=== PATIENT | male | born 1960 | race Two or more races ===

== ENCOUNTER 2023-01-17 07:39 | Observation (INO) | payer OTHER ==
--- NOTE | 2023-01-17 08:22 | ED ---
General Adult HPI - General Chief complaint: Abdominal Pain Stated complaint: constipation Time Seen by Provider: 01/17/23 07:48 Source: patient Mode of arrival: ambulatory Limitations: no limitations - History of Present Illness Initial comments: Dictation was produced using [employer] dictation software. please excuse any grammatical, word or spelling errors. Chief Complaint: 62-year-old male presents emergency Department with hematuria History of Present Illness: 62-year-old male for the last several days he's been suffering from penile pain and left groin pain. States that the groin pain is intermittent. Denies any CVA pain or left-sided flank pain. Denies any history of kidney stones. States that this morning he woke up to urinate when his urine was bright red. Patient states that if time he urinates there is penile pain. Denies any fever or constitutional symptoms. No history of abdominal surgery. The ROS documented in this emergency department record has been reviewed and confirmed by me. Those systems with pertinent positive or negative responses have been documented in the HPI. All other systems are other negative and/or noncontributory. - Related Data Allergies Allergy/AdvReac Type Severity Reaction Status Date / Time No Known Allergies Allergy Verified 01/17/23 07:48 Review of Systems ROS Statement: Those systems with pertinent positive or pertinent negative responses have been documented in the HPI. ROS Other: All systems not noted in ROS Statement are negative. Past Medical History Past Medical History: No Reported History History of Any Multi-Drug Resistant Organisms: None Reported Past Surgical History: No Surgical Hx Reported Past Psychological History: No Psychological Hx Reported Smoking Status: Current every day smoker Past Alcohol Use History: Occasional Past Drug Use History: None Reported General Exam - General Exam Comments Initial Comments: PHYSICAL EXAM: General Impression: Alert and oriented x3, not in acute distress HEENT: Normocephalic atraumatic, extra-ocular movements intact, pupils equal and reactive to light bilaterally, mucous membranes moist. Cardiovascular: Heart regular rate and rhythm Chest: Able to complete full sentences, no retractions, no tachypnea Abdomen: abdomen soft, non-tender, non-distended, no organomegaly Musculoskeletal: Pulses present and equal in all extremities, no peripheral edema Motor: no focal deficits noted Neurological: CN II-XII grossly intact, no focal motor or sensory deficits noted Skin: Intact with no visualized rashes Psych: Normal affect and mood Limitations: no limitations Course Vital Signs 01/17/23 07:49 Temperature 97.5 F L Pulse Rate 62 Respiratory 16 Rate Blood Pressure 159/80 O2 Sat by Pulse 99 Oximetry Medical Decision Making - Medical Decision Making Was pt. sent in by a medical professional or institution (, [facility], BROKERAGE MANAGER, urgent care, hospital, or fci...) When possible be specific @ -No Did you speak to anyone other than the patient for history (EMS, parent, family, police, friend...)? What history was obtained from this source @ -No Did you review nursing and triage notes (agree or disagree)? Why? @ -I reviewed and agree with nursing and triage notes Were old charts reviewed (outside hosp., previous admission, EMS record, old EKG, old radiological studies, urgent care reports/EKG's, fci records)? Report findings @ -No old charts were reviewed Differential Diagnosis (chest pain, altered mental status, abdominal pain women, abdominal pain men, vaginal bleeding, musculoskeletal, weakness, fever, dyspnea, syncope, headache, dizziness, GI bleed, back pain, seizure, CVA, palpatations, mental health)? @ -Differential Abdominal Pain Men: Appendicitis, cholecystitis, diverticulosis, ischemic bowel, pancreatitis, hepatitis, UTI, gastroenteritis, AAA, incarcerated hernia, bowel obstruction, constipation, inflammatory bowel, hepatitis, peptic ulcer disease, splenic infarction, perforated viscus, testicular torsion, this is not meant to be an all-inclusive list EKG interpreted by me (3pts min.). @ -None done X-rays interpreted by me (1pt min.). @ -None done CT interpreted by me (1pt min.). @ -CT of the abdomen and pelvis shows bladder wall thickening. U/S interpreted by me (1pt. min.). @ -None done What testing was considered but not performed or refused? (CT, X-rays, U/S, labs)? Why? @ -None What meds were considered but not given or refused? Why? @ -None Did you discuss the management of the patient with other professionals (professionals i.e. [facility] Menjivar, BROKERAGE MANAGER, lab, RT, psych nurse, social security assessor, wrapping machine helper, teacher, civil preparedness officer, home health care case manager)? Give summary @ -Case discussed including CT findings with on-call urologist, Dr. taylor who is agreeable for consultation Was smoking cessation discussed for >3mins.? @ -No Was critical care preformed (if so, how long)? @ -No Were there social determinants of health that impacted care today? How? (Homelessness, low income, unemployed, alcoholism, drug addiction, transportation, low edu. Level, literacy, decrease access to med. care, retirement, rehab)? @ -No Was there de-escalation of care discussed even if they declined (Discuss DNR or withdrawal of care, Hospice)? DNR status @ -No What co-morbidities impacted this encounter? (DM, HTN, Smoking, COPD, CAD, Cancer, CVA, ARF, Chemo, Hep., AIDS, mental health diagnosis, sleep apnea, morbid obesity)? @ -None Was patient admitted / discharged? Hospital course, mention meds given and route, prescriptions, significant lab abnormalities, going to OR and other pertinent info. @ -62-year-old male presents emergency department with penile pain, abdominal pain, groin pain and hematuria. Vital signs stable. Imaging studies obtained. CT shows findings concerning for bladder adenocarcinoma. There is mild obstructive uropathy affecting the left kidney. Ultrasound shows no left lower extremity DVT. Disposition options discussed with patient to group for admission and consultation to urology. Undiagnosed new problem with uncertain prognosis? @ -No Drug Therapy requiring intensive monitoring for toxicity (Heparin, Nitro, Insulin, Cardizem)? @ -No Were any procedures done? @ -No Diagnosis/symptom? Acute, or Chronic, or Acute on Chronic? Uncomplicated (without systemic symptoms) or Complicated (systemic symptoms)? @ -Imaging findings suspicious for new onset Bladder mass Side effects of treatment? @ -No Exacerbation, Progression, or Severe Exacerbation? @ -No Poses a threat to life or bodily function? How? (Chest pain, [place], [place], pneumonia, PE, COPD, DKA, ARF, appy, cholecystitis, CVA, Diverticulitis, Homicidal, Suicidal, threat to staff... and all critical care pts) @ -yes - Lab Data Result diagrams: 01/17/23 08:09 01/17/23 08:09 Lab Results 01/17/23 01/17/23 01/17/23 Range/Units 08:09 08:09 08:09 WBC 9.0 (3.8-10.6) k/uL RBC 4.37 (4.30-5.90) m/uL Hgb 11.9 L (13.0-17.5) gm/dL Hct 36.4 L (39.0-53.0) % MCV 83.3 (80.0-100.0) fL MCH 27.3 (25.0-35.0) pg MCHC 32.8 (31.0-37.0) g/dL RDW 13.4 (11.5-15.5) % Plt Count 227 (150-450) k/uL MPV 9.3 Neutrophils % 66 % Lymphocytes % 18 % Monocytes % 7 % Eosinophils % 6 % Basophils % 0 % Neutrophils # 6.0 (1.3-7.7) k/uL Lymphocytes # 1.6 (1.0-4.8) k/uL Monocytes # 0.6 (0-1.0) k/uL Eosinophils # 0.6 (0-0.7) k/uL Basophils # 0.0 (0-0.2) k/uL PT 9.6 (9.0-12.0) sec INR 0.9 (<1.2) APTT 25.2 (22.0-30.0) sec Sodium (137-145) mmol/L Potassium (3.5-5.1) mmol/L Chloride (98-107) mmol/L Carbon Dioxide (22-30) mmol/L Anion Gap mmol/L BUN (9-20) mg/dL Creatinine (0.66-1.25) mg/dL Est GFR (CKD-EPI)AfAm (>60 ml/min/1.73 sqM) Est GFR (CKD-EPI)NonAf (>60 ml/min/1.73 sqM) Glucose (74-99) mg/dL Calcium (8.4-10.2) mg/dL Total Bilirubin (0.2-1.3) mg/dL AST (17-59) U/L ALT (4-49) U/L Alkaline Phosphatase (38-126) U/L Total Protein (6.3-8.2) g/dL Albumin (3.5-5.0) g/dL Lipase (23-300) U/L Urine Color Brown Urine Appearance Cloudy (Clear) Urine RBC >182 H (0-5) /hpf Urine WBC 91 H (0-5) /hpf Urine WBC Clumps Moderate H (None) /hpf Urine Bacteria Many H (None) /hpf Urine Mucus Few H (None) /hpf 01/17/23 Range/Units 08:09 WBC (3.8-10.6) k/uL RBC (4.30-5.90) m/uL Hgb (13.0-17.5) gm/dL Hct (39.0-53.0) % MCV (80.0-100.0) fL MCH (25.0-35.0) pg MCHC (31.0-37.0) g/dL RDW (11.5-15.5) % Plt Count (150-450) k/uL MPV Neutrophils % % Lymphocytes % % Monocytes % % Eosinophils % % Basophils % % Neutrophils # (1.3-7.7) k/uL Lymphocytes # (1.0-4.8) k/uL Monocytes # (0-1.0) k/uL Eosinophils # (0-0.7) k/uL Basophils # (0-0.2) k/uL PT (9.0-12.0) sec INR (<1.2) APTT (22.0-30.0) sec Sodium 138 (137-145) mmol/L Potassium 4.5 (3.5-5.1) mmol/L Chloride 108 H (98-107) mmol/L Carbon Dioxide 20 L (22-30) mmol/L Anion Gap 10 mmol/L BUN 16 (9-20) mg/dL Creatinine 0.88 (0.66-1.25) mg/dL Est GFR (CKD-EPI)AfAm >90 (>60 ml/min/1.73 sqM) Est GFR (CKD-EPI)NonAf >90 (>60 ml/min/1.73 sqM) Glucose 88 (74-99) mg/dL Calcium 9.2 (8.4-10.2) mg/dL Total Bilirubin 1.0 (0.2-1.3) mg/dL AST 24 (17-59) U/L ALT 20 (4-49) U/L Alkaline Phosphatase 72 (38-126) U/L Total Protein 7.0 (6.3-8.2) g/dL Albumin 4.3 (3.5-5.0) g/dL Lipase 59 (23-300) U/L Urine Color Urine Appearance (Clear) Urine RBC (0-5) /hpf Urine WBC (0-5) /hpf Urine WBC Clumps (None) /hpf Urine Bacteria (None) /hpf Urine Mucus (None) /hpf Disposition Clinical Impression: Bladder mass Disposition: ADMITTED IP TO THIS [facility] Condition: Fair Decision Time: 09:30
[2023-01-17 08:24] LABS: Basophils % (A) 0 %; Eosinophils # (A) 0.6 k/uL (0-0.7); Eosinophils % (A) 6 %; HCT 36.4 % (39.0-53.0); HGB 11.9 gm/dL (13.0-17.5); Lymphocytes # (A) 1.6 k/uL (1.0-4.8); Lymphocytes % (A) 18 %; MCH 27.3 pg (25.0-35.0); MCHC 32.8 g/dL (31.0-37.0); MCV 83.3 fL (80.0-100.0); Mean Platelet Volume 9.3; Monocytes # (A) 0.6 k/uL (0-1.0); Monocytes % (A) 7 %; Neutrophils % (A) 66 %; Platelet Count 227 k/uL (150-450); RBC 4.37 m/uL (4.30-5.90); RDW 13.4 % (11.5-15.5)
[2023-01-17 08:34] LABS: INR 0.9 (<1.2); Partial Thromboplastin Time 25.2 sec (22.0-30.0); Prothrombin Time 9.6 sec (9.0-12.0)
[2023-01-17 08:38] LABS: Bacteria,Urine Many /hpf; Mucus,Urine Few /hpf; RBC,Urine >182 /hpf (0-5); WBC,Urine 91 /hpf (0-5)
[2023-01-17 08:44] LABS: ALT 20 U/L (4-49); AST 24 U/L (17-59); African American GFR (CKD) >90 (>60 ml/min/1.73 sqM); Albumin 4.3 g/dL (3.5-5.0); Alkaline Phosphatase 72 U/L (38-126); Anion Gap 10 mmol/L; Appearance,Urine Cloudy (Clear); Blood Urea Nitrogen 16 mg/dL (9-20); Calcium 9.2 mg/dL (8.4-10.2); Carbon Dioxide 20 mmol/L (22-30); Chloride 108 mmol/L (98-107); Glucose 88 mg/dL (74-99); Lipase 59 U/L (23-300); Non-African American GFR(CKD) >90 (>60 ml/min/1.73 sqM); Potassium 4.5 mmol/L (3.5-5.1); Sodium 138 mmol/L (137-145)
[2023-01-17 08:45] LABS: Color,Urine Brown
--- NOTE | 2023-01-17 08:56 | CT ---
EXAMINATION TYPE: CT abdomen pelvis wo con DATE OF EXAM: 01/17/2023 COMPARISON: None HISTORY: 62-year-old male Hematuria, groin pain CT DLP: 378.9 mGycm. Automated exposure control for dose reduction was used. TECHNIQUE: Contiguous axial scanning of the abdomen and pelvis without IV contrast. Coronal and sagit libby reconstructions performed. FINDINGS: LUNG BASES: Calcified granuloma right middle lobe. Band of scar/atelectasis posterior right base. LIVER/GB: No significant abnormality is appreciated. PANCREAS: No significant abnormality is seen. SPLEEN: No significant abnormality is seen. ADRENALS: No significant abnormality is seen. KIDNEYS: There is mild left-sided hydronephrosis. BOWEL: No dilated small bowel, free fluid, or free air. Mild scattered stool. No pericolic inflammato ry change. LYMPH NODES: Mildly enlarged 1.1 cm left external iliac chain node. Asymmetric fat stranding along th e left pelvic sidewall and left iliac chain down into the left femoral canal and anterior upper left thigh where a couple additional mildly enlarged nodes measure up to 2.2 cm, coronal image 38. OTHER: No significant abnormality is seen. PELVIS: There is crescentic abnormal irregular wall thickening along the left lateral half of the ignacio dder up to 1.7 cm thick. There is also encompasses the left ureteral orifice. Prostate gland normal s ize measuring 3.9 cm wide. BONES: Moderate to advanced degenerative disc disease mid to lower lumbar spine along with hypertroph ic facet arthropathy. IMPRESSION: 1. Abnormal crescentic irregular wall thickening along the left lateral half of the bladder up to 1. 7 cm thick. Recommend further urology evaluation to exclude underlying urothelial carcinoma. 2. This thickening encompasses the left ureteral orifice and there is mild left-sided obstructive ur opathy. 3. Fat stranding along the left pelvic sidewall extending down along the left iliac chain, left femo ral canal, and anterior upper left thigh. A few lymph nodes here measure up to 1.1 cm in the left ext ernal iliac chain and 2.2 cm left femoral chain. These may be reactive nodes. Neoplastic etiology not entirely excluded. 4. In addition, given the asymmetric soft tissue swelling, consider further assessment to exclude un derlying left lower extremity DVT.
[2023-01-17] MEDS ORDERED: NALOXONE 0.4 MG/ML 1 ML VIAL IV PRN (09:21)
--- NOTE | 2023-01-17 09:50 | US ---
EXAMINATION TYPE: US venous doppler duplex LE LT DATE OF EXAM: 01/17/2023 9:42 AM COMPARISON: NONE CLINICAL INDICATION: Male, 62 years old with history of abnormal CT; Abnormal CT. Patient does not ta ke blood thinners. No pain. SIDE PERFORMED: Left TECHNIQUE: The lower extremity deep venous system is examined utilizing real time linear array sonog davie with graded compression, doppler sonography and color-flow sonography. VESSELS IMAGED: Common Femoral Vein Deep Femoral Vein Greater Saphenous Vein * Femoral Vein Popliteal Vein Small Saphenous Vein * Proximal Calf Veins (* superficial vessels) Left Leg: No evidence of DVT. Duplicate mid femoral vein and duplicate distal popliteal vein noted. Complex area was seen adjacent to mid popliteal vessels. Complex area seen without color flow identif ied: 4.4 x 1.9 x 2.4 cm. Lymph node seen left groin: 2.1 x 2.4 x 0.8 cm. IMPRESSION: 1. No evidence for DVT. 2. Complex Bradford's cyst.
[2023-01-17] MEDS: SODIUM CHLORIDE 0.9% 1,000 ML IV SCH (12:58)
[2023-01-17] MEDS ORDERED: MELATONIN 3 MG TABLET PO PRN (14:18)
--- NOTE | 2023-01-17 14:21 | P.HPIM ---
History of Present Illness This is a pleasant 62 years old male with no significant past medical history. Presents because of blood in the urine x 2 days' duration. Patient states that is been complaining of from dysuria for several Weaks on the last 2 days there was blood in the urine. Also patient complaining of from mild left flank pain that comes and goes and is not bothering him much. He denies chest pain dyspnea. No headache dizziness weakness. No other new complaints. Smokes about 2 packs per week and he was counseled to quit and he agrees. He stated that he tried to quit about a week ago. He drinks alcohol occasionally. No illicit drugs. He does not follow up with PCP Vitals stable Hemoglobin 11.9. Rest of CBC, INR, BMP and liver enzymes are unremarkable. Lipase 59. Urinalysis suspicious for UTI and hematuria. Venous Doppler of the lower extremity CT of the abdomen and pelvis without contrast: Abnormal crescentic irregular wall thickening along the left lateral half of the bladder up to 1.7 cm thick. Mild left-sided obstructive uropathy lymphadenopathy. Patient was admitted with urology consult Review of Systems Review of systems CONSTITUTIONAL: No fever, no malaise, no fatigue. HEENT: No recent visual problems or hearing problems. Denied any sore throat. CARDIOVASCULAR: No orthopnea, PND, no palpitations, no syncope. PULMONARY: No shortness of breath, no cough, no hemoptysis. GASTROINTESTINAL: No diarrhea, no nausea, no vomiting, no abdominal pain. Normoactive bowel sounds. NEUROLOGICAL: No headaches, no weakness, no numbness. HEMATOLOGICAL: Denies any bleeding or petechiae. GENITOURINARY: Denies any burning micturition, frequency, or urgency. MUSCULOSKELETAL/RHEUMATOLOGICAL: Denies any joint pain, swelling, or any muscle pain. ENDOCRINE: Denies any polyuria or polydipsia. Past Medical History Past Medical History: No Reported History History of Any Multi-Drug Resistant Organisms: None Reported Past Surgical History: No Surgical Hx Reported Past Anesthesia/Blood Transfusion Reactions: No Reported Reaction Past Psychological History: No Psychological Hx Reported Smoking Status: Current every day smoker Past Alcohol Use History: Occasional Past Drug Use History: None Reported Medications and Allergies Home Medications Medication Instructions Recorded Confirmed Type No Known Home Medications 01/17/23 01/17/23 History Allergies Allergy/AdvReac Type Severity Reaction Status Date / Time No Known Allergies Allergy Verified 01/17/23 10:33 Physical Exam Vitals: Vital Signs Temp Pulse Pulse Resp BP BP Pulse Ox 01/17/23 11:11 97.6 F 56 L 16 167/80 97 01/17/23 07:49 97.5 F L 62 16 159/80 99 Intake and Output 01/16/23 01/17/23 01/17/23 22:59 06:59 14:59 Other: Voiding Method Toilet Weight 74.843 kg GENERAL: The patient is alert and oriented x3, not in any acute distress. Well developed, well nourished. HEENT: Pupils are round and equally reacting to light. EOMI. No scleral icterus. No conjunctival pallor. Normocephalic, atraumatic. No pharyngeal erythema. No thyromegaly. CARDIOVASCULAR: S1 and S2 present. No murmurs, rubs, or gallops. PULMONARY: Chest is clear to auscultation, no wheezing , no crackles. ABDOMEN: Soft, nontender, nondistended, normoactive bowel sounds. No palpable organomegaly. MUSCULOSKELETAL: No joint swelling or deformity. EXTREMITIES: No cyanosis, clubbing, or pedal edema. NEUROLOGICAL: Gross neurological examination did not reveal any focal deficits. SKIN: No rashes. no petechiae. Results CBC & Chem 7: 01/17/23 08:09 01/17/23 08:09 Labs: Abnormal Lab Results - Last 24 Hours (Table) 01/17/23 01/17/23 01/17/23 Range/Units 08:09 08:09 08:09 Hgb 11.9 L (13.0-17.5) gm/dL Hct 36.4 L (39.0-53.0) % Chloride 108 H (98-107) mmol/L Carbon Dioxide 20 L (22-30) mmol/L Urine RBC >182 H (0-5) /hpf Urine WBC 91 H (0-5) /hpf Urine WBC Clumps Moderate H (None) /hpf Urine Bacteria Many H (None) /hpf Urine Mucus Few H (None) /hpf Thrombosis Risk Factor Assmnt - Choose All That Apply Each Risk Factor Represents 2 Points: Age 61-74 years Thrombosis Risk Factor Assessment Total Risk Factor Score: 2 Thrombosis Risk Factor Assessment Level: Low Risk Assessment and Plan Assessment: Urinary bladder with irregular wall thickening suspicious for carcinoma, urothelial cancer Hematuria Normochromic, normocytic anemia Nicotine dependence Plan: Start empirically on Levaquin for possible infectious etiology. We'll send urin e culture urology consult Nicotine patch Labs and medication were reviewed.. Continue same treatment. Continue with symptomatic treatment. Resume home medication. Monitor labs and vitals. DVT and GI prophylaxis. Further recommendations as per clinical course of the patient DVT prophylaxis: no Subcutaneous heparin for hematuria GI Prophylaxis: Pepcid Prognosis is guarded
[2023-01-17] MEDS: NICOTINE 21MG/24HR PATCH TRANSDERM SCH (14:57)
[2023-01-17] MEDS: LEVOFLOXACIN 500 MG TAB PO SCH (14:57)
[2023-01-17] MEDS ORDERED: RX INFO: IV CONTRAST WAS GIVEN 1 EACH MISC MISCELLANE PRN (17:41)
--- NOTE | 2023-01-17 17:41 | P.GSCN ---
History of Present Illness Consult date: 01/17/23 Reason for Consult: Bladder mass, gross hematuria History of present illness: This is a 62-year-old male presented to the hospital with gross hematuria, dysuria and lower abdominal pain. Underwent a CT abdomen and pelvis which showed evidence of bladder wall thickening concerning for malignancy and evidence of lymphadenopathy. He indicated he has been having intermittent gross hematuria for the past year. At this time it was associated with dysuria and the abdominal pain. No known family history of malignancies. He is smoker. Denies any previous 3 of kidney stones or UTIs. His urinalysis is concerning for UTI him he is currently on Levaquin Review of Systems - Constitutional Denies fever, Denies weight loss - EENT Ears, nose, mouth and throat: Denies dysphagia - Cardiovascular Denies chest pain, Denies shortness of breath - Respiratory Denies cough, Denies 7 - Gastrointestinal Reports as per HPI - Genitourinary Reports dysuria, Reports hematuria - Integumentary Denies rash, Denies unusual bruising - Neurological Denies headaches, Denies syncope - Hematologic/Lymphatic Denies easy bleeding, Denies easy bruising Past Medical History Past Medical History: No Reported History History of Any Multi-Drug Resistant Organisms: None Reported Past Surgical History: No Surgical Hx Reported Past Anesthesia/Blood Transfusion Reactions: No Reported Reaction Past Psychological History: No Psychological Hx Reported Smoking Status: Current every day smoker Past Alcohol Use History: Occasional Past Drug Use History: None Reported Medications and Allergies Home Medications Medication Instructions Recorded Confirmed Type No Known Home Medications 01/17/23 01/17/23 History Allergies Allergy/AdvReac Type Severity Reaction Status Date / Time No Known Allergies Allergy Verified 01/17/23 10:33 Surgical - Exam Vital Signs Temp Pulse Resp BP Pulse Ox 97.5 F L 62 16 159/80 99 01/17/23 07:49 01/17/23 07:49 01/17/23 07:49 01/17/23 07:49 01/17/23 07:49 - General no distress, moderate pain - Eyes normal ocular movement, no pale - ENT normal nares, normal mucosa - Respiratory normal expansion, normal respiratory effort - Abdomen Abdomen: soft, non tender - Psychiatric oriented to time, oriented to person, oriented to place Results - Labs 01/17/23 08:09 01/17/23 08:09 Abnormal Lab Results - Last 24 Hours (Table) 01/17/23 01/17/23 01/17/23 Range/Units 08:09 08:09 08:09 Hgb 11.9 L (13.0-17.5) gm/dL Hct 36.4 L (39.0-53.0) % Chloride 108 H (98-107) mmol/L Carbon Dioxide 20 L (22-30) mmol/L Urine RBC >182 H (0-5) /hpf Urine WBC 91 H (0-5) /hpf Urine WBC Clumps Moderate H (None) /hpf Urine Bacteria Many H (None) /hpf Urine Mucus Few H (None) /hpf Diabetes panel 01/17/23 Range/Units 08:09 Sodium 138 (137-145) mmol/L Potassium 4.5 (3.5-5.1) mmol/L Chloride 108 H (98-107) mmol/L Carbon Dioxide 20 L (22-30) mmol/L BUN 16 (9-20) mg/dL Creatinine 0.88 (0.66-1.25) mg/dL Glucose 88 (74-99) mg/dL Calcium 9.2 (8.4-10.2) mg/dL AST 24 (17-59) U/L ALT 20 (4-49) U/L Alkaline Phosphatase 72 (38-126) U/L Total Protein 7.0 (6.3-8.2) g/dL Albumin 4.3 (3.5-5.0) g/dL Calcium panel 01/17/23 Range/Units 08:09 Calcium 9.2 (8.4-10.2) mg/dL Albumin 4.3 (3.5-5.0) g/dL Pituitary panel 01/17/23 Range/Units 08:09 Sodium 138 (137-145) mmol/L Potassium 4.5 (3.5-5.1) mmol/L Chloride 108 H (98-107) mmol/L Carbon Dioxide 20 L (22-30) mmol/L BUN 16 (9-20) mg/dL Creatinine 0.88 (0.66-1.25) mg/dL Glucose 88 (74-99) mg/dL Calcium 9.2 (8.4-10.2) mg/dL Adrenal panel 01/17/23 Range/Units 08:09 Sodium 138 (137-145) mmol/L Potassium 4.5 (3.5-5.1) mmol/L Chloride 108 H (98-107) mmol/L Carbon Dioxide 20 L (22-30) mmol/L BUN 16 (9-20) mg/dL Creatinine 0.88 (0.66-1.25) mg/dL Glucose 88 (74-99) mg/dL Calcium 9.2 (8.4-10.2) mg/dL Total Bilirubin 1.0 (0.2-1.3) mg/dL AST 24 (17-59) U/L ALT 20 (4-49) U/L Alkaline Phosphatase 72 (38-126) U/L Total Protein 7.0 (6.3-8.2) g/dL Albumin 4.3 (3.5-5.0) g/dL Assessment and Plan Assessment: This is a 62-year-old male with finding of bladder mass with lymphadenopathy discussed with him if this is highly concerning for bladder malignancy. Of note he also has evidence of UTI on urinalysis. Discussed with him given the finding of UTI on his urinalysis I will hold off on proceeding to transurethral resection bladder tumor. This time do recommend contrast imaging to better evaluate the ureters and the chest for any evidence of metastasis. -CT urogram, with CT chest -Follow up on urine culture, continue antibiotics -We'll arrange for outpatient TURBT
[2023-01-17] MEDS: FAMOTIDINE 20 MG/2 ML VIAL IV SCH (21:47)
--- NOTE | 2023-01-18 07:02 | P.PN ---
Subjective Still having some blood in the urine, slight improvement of dysuria. Still awaiting the computed tomography scan to be done Objective - Vital Signs Vital signs: Vital Signs Temp 98.1 F 01/18/23 02:36 Pulse 51 L 01/18/23 02:36 Resp 17 01/18/23 02:36 BP 132/71 01/18/23 02:36 Pulse Ox 97 01/18/23 02:36 FiO2 Intake & Output 01/17/23 01/18/23 01/18/23 18:59 06:59 18:59 Intake Total 709 Balance 709 Weight 74.843 kg Intake: Oral 709 Other: Voiding Method Toilet Toilet # Voids 1 2 - Constitutional General appearance: Present: no acute distress - Gastrointestinal General gastrointestinal: Present: soft. Absent: distended, tenderness - Labs CBC & Chem 7: 01/17/23 08:09 01/17/23 08:09 Labs: Abnormal Lab Results - Last 24 Hours (Table) 01/17/23 01/17/23 01/17/23 Range/Units 08:09 08:09 08:09 Hgb 11.9 L (13.0-17.5) gm/dL Hct 36.4 L (39.0-53.0) % Chloride 108 H (98-107) mmol/L Carbon Dioxide 20 L (22-30) mmol/L Urine RBC >182 H (0-5) /hpf Urine WBC 91 H (0-5) /hpf Urine WBC Clumps Moderate H (None) /hpf Urine Bacteria Many H (None) /hpf Urine Mucus Few H (None) /hpf Assessment and Plan Assessment: This is a 62-year-old male with finding of bladder mass with lymphadenopathy discussed with him if this is highly concerning for bladder malignancy. Of note he also has evidence of UTI on urinalysis. Discussed with him given the finding of UTI on his urinalysis I will hold off on proceeding to transurethral resection bladder tumor. This time do recommend contrast imaging to better evaluate the ureters and the chest for any evidence of metastasis. This morning on evaluation indicates slight improvement in his dysuria -CT urogram, with CT chest -Follow up on urine culture, continue antibiotics -We'll arrange for outpatient TURBT
--- NOTE | 2023-01-18 08:25 | CT ---
EXAMINATION TYPE: CT chest w con DATE OF EXAM: 01/18/2023 COMPARISON: None HISTORY: Urinary bladder mass CONTRAST: CT scan of the chest is performed with IV Contrast, patient injected with 100 mL of Isovue 370. FINDINGS: LUNGS: The lungs are grossly clear, there is no concerning parenchymal mass or nodule identified. Di scoid atelectasis or parenchymal scarring right lower lobe. Calcified granuloma anterior right lower lobe. Large emphysematous bulla right apical region. There is no pleural effusion or pneumothorax see n. The tracheobronchial tree is patent. MEDIASTINUM: There are no greater than 1 cm hilar or mediastinal lymph nodes. No pericardial effusi on is seen. Thoracic aorta is of normal caliber. The heart is not enlarged. UPPER ABDOMEN: No significant abnormality appreciated. OTHER: No additional significant abnormality is seen. IMPRESSION: 1. No evidence of metastatic disease to the chest. 2. Discoid atelectasis or parenchymal scarring right lower lobe as well as evidence of remote granulo matous disease.
--- NOTE | 2023-01-18 08:35 | CT ---
EXAMINATION TYPE: CT urogram wo/w con DATE OF EXAM: 01/18/2023 COMPARISON: 01/17/2023 HISTORY: blood in urine CT DLP: 1246.7 mGycm CONTRAST: Performed and with IV Contrast, patient injected with 50mL mL of Isovue 300. CT Urography was performed with unenhanced followed by enhanced images of the kidneys, ureters and ur inary bladder. Delayed images were obtained. 3d reconstruction was performed at a separate work sta tion. FINDINGS: KIDNEYS/BLADDER: Confirmed is irregular wall thickening along the left lateral urinary bladder wall m easuring maximal thickness of 1.7 cm. Tissue diagnosis recommended to exclude underlying urothelial c arcinoma. This appears to encompass the left ureteral orifice with left-sided hydroureteronephrosis s een being mild in degree. There is stranding extending into the left pelvic sidewall. There is also l oss of fat plane between the prostate gland and the urinary bladder. Mildly prominent lymph nodes not ed left external iliac chain measuring 1 cm and 2.2 cm left femoral chain. Subcentimeter left inguina l lymph nodes are also noted. The right kidney is unremarkable. No renal masses are seen. No nephroli thiasis present. LIVER/GB: No calcified gallstones. No space occupying hepatic lesion. Biliary tree is of normal ca liber. PANCREAS: No inflammation. No distinct mass. SPLEEN: No splenic enlargement. No lesion seen. ADRENALS: No nodule. No thickening. BOWEL: Normal appendix. Normal bowel caliber. No inflammation. GENITAL ORGANS: No gross abnormality. LYMPH NODES: As above. AORTA: No significant abnormality. OSSEOUS STRUCTURES: No significant abnormality is seen. OTHER: No significant additional abnormality is seen. IMPRESSION: 1. Irregular left-sided urinary bladder wall thickening with infiltration into the left pelvic sidewa ll and associated mild adenopathy and mild left-sided hydronephrosis as discussed above. Tissue diagn osis recommended to exclude neoplasm. In addition there is ill-definition of the fat plane between th e urinary bladder and prostate gland.
[2023-01-18 08:55] LABS: Basophils # (A) 0.03 X 10*3/uL (0.00-0.10); Basophils % (A) 0.4 %; Eosinophils % (A) 6.1 %; HCT 37.7 % (39.6-50.0); HGB 11.9 d/dL (13.0-17.0); Lymphocytes # (A) 1.52 X 10*3/uL (0.90-5.00); Lymphocytes % (A) 18.6 %; MCH 25.9 pg (27.0-32.0); MCHC 31.6 d/dL (32.0-37.0); MCV 82.1 FL (80.0-97.0); Mean Platelet Volume 11.5 FL (9.5-12.2); Monocytes # (A) 0.71 X 10*3/uL (0.20-1.00); Monocytes % (A) 8.7 %; NRBC Per 100 WBC 0 X 10*3/uL (0.00-0.01); Neutrophils # (A) 5.38 X 10*3/uL (1.80-7.70); Platelet Count 241 X 10*3/uL (140-440); RBC 4.59 X 10*6/uL (4.40-5.60); RDW 13.8 % (11.5-14.5); WBC 8.16 X 10*3/uL (4.50-10.00)
[2023-01-18] MEDS: NICOTINE 21MG/24HR PATCH TRANSDERM SCH (09:10)
[2023-01-18] MEDS: FAMOTIDINE 20 MG/2 ML VIAL IV SCH (09:10)
[2023-01-18] MEDS: SODIUM CHLORIDE 0.9% 1,000 ML IV SCH (09:11)
--- NOTE | 2023-01-18 11:54 | P.PN ---
Subjective This is a pleasant 62 years old male with no significant past medical history. Presents because of blood in the urine x 2 days' duration. Patient states that is been complaining of from dysuria for several Weaks on the last 2 days there was blood in the urine. Also patient complaining of from mild left flank pain that comes and goes and is not bothering him much. He denies chest pain dyspnea. No headache dizziness weakness. No other new complaints. Smokes about 2 packs per week and he was counseled to quit and he agrees. He stated that he tried to quit about a week ago. He drinks alcohol occasionally. No illicit drugs. He does not follow up with PCP Vitals stable Hemoglobin 11.9. Rest of CBC, INR, BMP and liver enzymes are unremarkable. Lipase 59. Urinalysis suspicious for UTI and hematuria. Venous Doppler of the lower extremity CT of the abdomen and pelvis without contrast: Abnormal crescentic irregular wall thickening along the left lateral half of the bladder up to 1.7 cm thick. Mild left-sided obstructive uropathy lymphadenopathy. Patient was admitted with urology consult 01/18/2023 Patient left flank pain and suprapubic pain and improvement He still has hematuria and improving slowly and goes generally Urologist recommended outpatient TURB urine culture pending, remains on Levaquin Possible discharge in 24-48 hours Objective - Vital Signs Vital signs: Vital Signs Temp 97.4 F L 01/18/23 08:00 Pulse 57 L 01/18/23 08:00 Resp 15 01/18/23 08:00 BP 134/72 01/18/23 08:00 Pulse Ox 98 01/18/23 08:00 FiO2 Intake & Output 01/17/23 01/18/23 01/18/23 18:59 06:59 18:59 Intake Total 709 360 Balance 709 360 Weight 74.843 kg Intake: Oral 709 360 Other: Voiding Method Toilet Toilet # Voids 1 2 - Exam GENERAL: The patient is alert and oriented x3, not in any acute distress. Well developed, well nourished. HEENT: Pupils are round and equally reacting to light. EOMI. No scleral icterus. No conjunctival pallor. Normocephalic, atraumatic. No pharyngeal erythema. No thyromegaly. CARDIOVASCULAR: S1 and S2 present. No murmurs, rubs, or gallops. PULMONARY: Chest is clear to auscultation, no wheezing , no crackles. ABDOMEN: Soft, nontender, nondistended, normoactive bowel sounds. No palpable organomegaly. MUSCULOSKELETAL: No joint swelling or deformity. EXTREMITIES: No cyanosis, clubbing, or pedal edema. NEUROLOGICAL: Gross neurological examination did not reveal any focal deficits. SKIN: No rashes. no petechiae. - Labs CBC & Chem 7: 01/18/23 05:54 01/17/23 08:09 Labs: Abnormal Lab Results - Last 24 Hours (Table) 01/18/23 Range/Units 05:54 Hgb 11.9 L (13.0-17.0) d/dL Hct 37.7 L (39.6-50.0) % MCH 25.9 L (27.0-32.0) pg MCHC 31.6 L (32.0-37.0) d/dL Eosinophils # 0.50 H (0.04-0.35) X 10*3/uL Assessment and Plan Assessment: Urinary bladder with irregular wall thickening suspicious for carcinoma, urothelial cancer Hematuria Normochromic, normocytic anemia Nicotine dependence Plan: Start empirically on Levaquin for possible infectious etiology. We'll send urine culture urology consult Nicotine patch Labs and medication were reviewed.. Continue same treatment. Continue with symptomatic treatment. Resume home medication. Monitor labs and vitals. DVT and GI prophylaxis. Further recommendations as per clinical course of the patient DVT prophylaxis: no Subcutaneous heparin for hematuria GI Prophylaxis: Pepcid Prognosis is guarded
[2023-01-18] MEDS: LEVOFLOXACIN 500 MG TAB PO SCH (16:14)
[2023-01-18] MEDS: FAMOTIDINE 20 MG TAB PO SCH (21:27)
[2023-01-19] MEDS: NICOTINE 21MG/24HR PATCH TRANSDERM SCH (09:53)
[2023-01-19] MEDS: FAMOTIDINE 20 MG TAB PO SCH ×2 (09:53→20:38)
[2023-01-19] MEDS: SODIUM CHLORIDE 0.9% 1,000 ML IV SCH (09:55)
--- NOTE | 2023-01-19 15:01 | P.PN ---
Subjective Progress Note Date: 01/19/23 no acute overnight events, CT from yesterday showed no evidence of distal metastatic disease, showed evidence of left hydronephrosis, with mass involving the left lateral bladder wall with lymphadenopathy. Urine cultures growing gram-negative bacilli Objective - Vital Signs Vital signs: Vital Signs Temp 97.5 F L 01/19/23 08:00 Pulse 61 01/19/23 08:00 Resp 18 01/19/23 08:00 BP 105/53 01/19/23 08:00 Pulse Ox 97 01/19/23 08:00 FiO2 Intake & Output 01/18/23 01/19/23 01/19/23 18:59 06:59 18:59 Intake Total 718 358 Balance 718 358 Intake: Intake, IV Titration 0 Amount Sodium Chloride 0.9% 1, 0 000 ml @ 20 mls/hr IV . Q24H [facility] Rx#:[id number] Oral 718 358 Other: Voiding Method Toilet Toilet # Voids 2 - Labs CBC & Chem 7: 01/18/23 05:54 01/17/23 08:09 Labs: Microbiology - Last 24 Hours (Table) 01/17/23 08:09 Urine Culture - Preliminary Urine,Clean Catch Gram Neg Bacilli Assessment and Plan Assessment: This is a 62-year-old male with finding of bladder mass with lymphadenopathy discussed with him if this is highly concerning for bladder malignancy. Of note he also has evidence of UTI on urinalysis. urine culture is growing gram- negative bacilli. Discussed with him given the finding of UTI on his urinalysis I will hold off on proceeding to transurethral resection bladder tumor. his upper tract images showed no evidence of distal metastatic disease, but is evidence of lymphadenopathy in the pelvis with hydronephrosis. Discussed with him this is highly concerning for malignancy -CT urogram, with CT chest was reviewed -Follow up on urine culture, continue antibiotics -We'll arrange for outpatient TURBT possible left stent , he is tentatively scheduled for February 06
[2023-01-19] MEDS: LEVOFLOXACIN 500 MG TAB PO SCH (15:38)
--- NOTE | 2023-01-20 05:53 | P.PN ---
Subjective This is a pleasant 62 years old male with no significant past medical history. Presents because of blood in the urine x 2 days' duration. Patient states that is been complaining of from dysuria for several Weaks on the last 2 days there was blood in the urine. Also patient complaining of from mild left flank pain that comes and goes and is not bothering him much. He denies chest pain dyspnea. No headache dizziness weakness. No other new complaints. Smokes about 2 packs per week and he was counseled to quit and he agrees. He stated that he tried to quit about a week ago. He drinks alcohol occasionally. No illicit drugs. He does not follow up with PCP Vitals stable Hemoglobin 11.9. Rest of CBC, INR, BMP and liver enzymes are unremarkable. Lipase 59. Urinalysis suspicious for UTI and hematuria. Venous Doppler of the lower extremity CT of the abdomen and pelvis without contrast: Abnormal crescentic irregular wall thickening along the left lateral half of the bladder up to 1.7 cm thick. Mild left-sided obstructive uropathy lymphadenopathy. 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 No suprapubic or flank pain today. No other new complaints no fever, no leukocytosis Urine Cultures still growing gram-negative bacilli pending final results of the meantime patient remains on Levaquin Plan of Care is discussed with the patient and he is agreeable Objective - Vital Signs Vital signs: Vital Signs Temp 97.5 F L 01/19/23 08:00 Pulse 61 01/19/23 08:00 Resp 18 01/19/23 08:00 BP 105/53 01/19/23 08:00 Pulse Ox 97 01/19/23 08:00 FiO2 Intake & Output 01/18/23 01/19/23 01/19/23 18:59 06:59 18:59 Intake Total 718 358 Balance 718 358 Intake: Intake, IV Titration 0 Amount Sodium Chloride 0.9% 1, 0 000 ml @ 20 mls/hr IV . Q24H [facility] Rx#:[id number] Oral 645 152 Other: Voiding Method Toilet Toilet # Voids 2 - Exam GENERAL: The patient is alert and oriented x3, not in any acute distress. Well developed, well nourished. HEENT: Pupils are round and equally reacting to light. EOMI. No scleral icterus. No conjunctival pallor. Normocephalic, atraumatic. No pharyngeal erythema. No thyromegaly. CARDIOVASCULAR: S1 and S2 present. No murmurs, rubs, or gallops. PULMONARY: Chest is clear to auscultation, no wheezing , no crackles. ABDOMEN: Soft, nontender, nondistended, normoactive bowel sounds. No palpable organomegaly. MUSCULOSKELETAL: No joint swelling or deformity. EXTREMITIES: No cyanosis, clubbing, or pedal edema. NEUROLOGICAL: Gross neurological examination did not reveal any focal deficits. SKIN: No rashes. no petechiae. - Labs CBC & Chem 7: 01/18/23 05:54 01/17/23 08:09 Labs: Microbiology - Last 24 Hours (Table) 01/17/23 08:09 Urine Culture - Preliminary Urine,Clean Catch Gram Neg Bacilli Assessment and Plan Assessment: Urinary bladder with irregular wall thickening suspicious for carcinoma, urothelial cancer Hematuria Normochromic, normocytic anemia Nicotine dependence Plan: Start empirically on Levaquin for possible infectious etiology. We'll send urine culture urology consult Nicotine patch Labs and medication were reviewed.. Continue same treatment. Continue with symptomatic treatment. Resume home medication. Monitor labs and vitals. DVT and GI prophylaxis. Further recommendations as per clinical course of the patient DVT prophylaxis: no Subcutaneous heparin for hematuria GI Prophylaxis: Pepcid Prognosis is guarded
[2023-01-20] MEDS: NICOTINE 21MG/24HR PATCH TRANSDERM SCH (08:56)
[2023-01-20] MEDS: SODIUM CHLORIDE 0.9% 1,000 ML IV SCH (08:57)
[2023-01-20] MEDS: FAMOTIDINE 20 MG TAB PO SCH ×2 (08:57→20:51)
--- NOTE | 2023-01-20 10:22 | P.PN ---
Subjective Progress Note Date: 01/20/23 no acute overnight events, urine culture is growing E. coli, gross hematuria resolved Objective - Vital Signs Vital signs: Vital Signs Temp 97.5 F L 01/20/23 07:28 Pulse 91 01/20/23 07:28 Resp 16 01/20/23 07:28 BP 96/67 01/20/23 07:28 Pulse Ox 100 01/20/23 07:28 FiO2 Intake & Output 01/19/23 01/20/23 01/20/23 18:59 06:59 18:59 Intake Total 896 100 Balance 896 100 Intake: Oral 896 100 Other: Voiding Method Toilet Toilet # Voids 1 - Constitutional General appearance: Present: no acute distress - Gastrointestinal General gastrointestinal: Present: soft. Absent: distended, tenderness - Psychiatric Psychiatric: Present: A&O x's 3 - Labs CBC & Chem 7: 01/18/23 05:54 01/17/23 08:09 Labs: Microbiology - Last 24 Hours (Table) 01/17/23 08:09 Urine Culture - Preliminary Urine,Clean Catch Escherichia coli Assessment and Plan Assessment: This is a 62-year-old male with finding of bladder mass with lymphadenopathy discussed with him if this is highly concerning for bladder malignancy. Of note he also has evidence of UTI on urinalysis. urine culture is growing gram- negative bacilli. Discussed with him given the finding of UTI on his urinalysis I will hold off on proceeding to transurethral resection bladder tumor. his upper tract images showed no evidence of distal metastatic disease, but is evidence of lymphadenopathy in the pelvis with hydronephrosis. Discussed with him this is highly concerning for malignancy -We'll arrange for outpatient TURBT possible left stent , he is tentatively scheduled for February 06 -ay for discharge from urology standpoint
[2023-01-20] MEDS: LEVOFLOXACIN 500 MG TAB PO SCH (15:15)
--- NOTE | 2023-01-20 20:07 | P.PN ---
Subjective This is a pleasant 62 years old male with no significant past medical history. Presents because of blood in the urine x 2 days' duration. Patient states that is been complaining of from dysuria for several Weaks on the last 2 days there was blood in the urine. Also patient complaining of from mild left flank pain that comes and goes and is not bothering him much. He denies chest pain dyspnea. No headache dizziness weakness. No other new complaints. Smokes about 2 packs per week and he was counseled to quit and he agrees. He stated that he tried to quit about a week ago. He drinks alcohol occasionally. No illicit drugs. He does not follow up with PCP Vitals stable Hemoglobin 11.9. Rest of CBC, INR, BMP and liver enzymes are unremarkable. Lipase 59. Urinalysis suspicious for UTI and hematuria. Venous Doppler of the lower extremity CT of the abdomen and pelvis without contrast: Abnormal crescentic irregular wall thickening along the left lateral half of the bladder up to 1.7 cm thick. Mild left-sided obstructive uropathy lymphadenopathy. 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 No suprapubic or flank pain today. No other new complaints no fever, no leukocytosis Urine Cultures still growing gram-negative bacilli pending final results of the meantime patient remains on Levaquin Plan of Care is discussed with the patient and he is agreeable 01/20/23 Patient is clinically improving, his hematuria is improving. He denies pain. His becoming symptomatic and willing to go home. Urologist or he could've him for discharge from the perspective with recommendation for biopsy as an outpatient and they gave the patient date on February 05 patient is aware also I told the patient to follow-up with urologist in 1-2 weeks after discharge with and he agrees 0 culture is growing E. coli that was sensitive to Levaquin which is provided for the patient however the culture is not final yet. Once final results of the culture obtained he can be discharged Actually I asked the staff to call the lab and they informed them that the results on and still no still pending. Plan of care discussed with the patient and he is agreeable Objective - Vital Signs Vital signs: Vital Signs Temp 97.6 F 01/20/23 14:00 Pulse 58 L 01/20/23 14:00 Resp 16 01/20/23 14:00 BP 118/73 01/20/23 14:00 Pulse Ox 97 01/20/23 14:00 FiO2 Intake & Output 01/20/23 01/20/23 01/21/23 06:59 18:59 06:59 Intake Total 100 Balance 100 Intake: Oral 100 Other: Voiding Method Toilet Toilet # Voids 1 3 - Exam GENERAL: The patient is alert and oriented x3, not in any acute distress. Well developed, well nourished. HEENT: Pupils are round and equally reacting to light. EOMI. No scleral icterus. No conjunctival pallor. Normocephalic, atraumatic. No pharyngeal erythema. No thyromegaly. CARDIOVASCULAR: S1 and S2 present. No murmurs, rubs, or gallops. PULMONARY: Chest is clear to auscultation, no wheezing , no crackles. ABDOMEN: Soft, nontender, nondistended, normoactive bowel sounds. No palpable organomegaly. MUSCULOSKELETAL: No joint swelling or deformity. EXTREMITIES: No cyanosis, clubbing, or pedal edema. NEUROLOGICAL: Gross neurological examination did not reveal any focal deficits. SKIN: No rashes. no petechiae. - Labs CBC & Chem 7: 01/18/23 05:54 01/17/23 08:09 Labs: Microbiology - Last 24 Hours (Table) 01/17/23 08:09 Urine Culture - Preliminary Urine,Clean Catch Escherichia coli Assessment and Plan Assessment: Urinary bladder with irregular wall thickening suspicious for carcinoma, urothelial cancer Hematuria Normochromic, normocytic anemia Nicotine dependence Plan: Start empirically on Levaquin for possible infectious etiology. Follow-up urine culture results for E. coli area pending final results of the culture urology consult Nicotine patch Labs and medication were reviewed.. Continue same treatment. Continue with symptomatic treatment. Resume home medication. Monitor labs and vitals. DVT and GI prophylaxis. Further recommendations as per clinical course of the patient DVT prophylaxis: no Subcutaneous heparin for hematuria GI Prophylaxis: Pepcid Prognosis is guarded
[2023-01-21] MEDS: FAMOTIDINE 20 MG TAB PO SCH (08:36)
[2023-01-21] MEDS: NICOTINE 21MG/24HR PATCH TRANSDERM SCH (08:36)
--- NOTE | 2023-01-21 09:19 | P.PN ---
Subjective no acute overnight events, urine culture is growing E. coli, gross hematuria resolved, denies flank pain, he indicates dysuria improving Objective - Vital Signs Vital signs: Vital Signs Temp 97.6 F 01/21/23 08:00 Pulse 74 01/21/23 08:00 Resp 17 01/21/23 08:00 BP 93/65 01/21/23 08:00 Pulse Ox 98 01/21/23 08:00 FiO2 Intake & Output 01/20/23 01/21/23 01/21/23 18:59 06:59 18:59 Other: Voiding Method Toilet Toilet Toilet # Voids 3 2 - Constitutional General appearance: Present: no acute distress - Gastrointestinal General gastrointestinal: Present: soft. Absent: distended, tenderness - Psychiatric Psychiatric: Present: A&O x's 3 - Labs CBC & Chem 7: 01/18/23 05:54 01/17/23 08:09 Labs: Microbiology - Last 24 Hours (Table) 01/17/23 08:09 Urine Culture - Final Urine,Clean Catch Escherichia coli Assessment and Plan Assessment: This is a 62-year-old male with finding of bladder mass with lymphadenopathy discussed with him if this is highly concerning for bladder malignancy. Of note he also has evidence of UTI on urinalysis. urine culture is growing gram- negative bacilli. Discussed with him given the finding of UTI on his urinalysis I will hold off on proceeding to transurethral resection bladder tumor. his upper tract images showed no evidence of distal metastatic disease, but is evidence of lymphadenopathy in the pelvis with hydronephrosis. Discussed with him this is highly concerning for malignancy -We'll arrange for outpatient TURBT possible left stent , he is tentatively scheduled for February 06 -Okay for discharge from urology standpoint
[2023-01-21 15:09] VITALS: BP 98/55; PULSE 73; RESP 15; TEMP 97.7
[2023-01-21] MEDS: LEVOFLOXACIN 500 MG TAB PO SCH (15:11)
--- NOTE | 2023-01-31 11:27 | P.DS ---
Providers Date of admission: 01/17/23 09:21 Attending physician: Hamilton Ahmadi MD Consults: 01/17/23 09:25 Consult Physician Routine Consulting Provider: Jimmy Bernardo Consult Reason/Comments: abnormal CT Do you want consulting provider notified?: Already Contacted Primary care physician: Stated None Hospital Course: Diagnoses: Urinary bladder with irregular wall thickening suspicious for carcinoma, urothelial cancer Hematuria Normochromic, normocytic anemia Nicotine dependence Hospital course: This is a pleasant 62 years old male with no significant past medical history. Presents because of blood in the urine x [address] of the abdomen and pelvis without contrast: Abnormal crescentic irregular wall thickening along the left lateral half of the bladder up to 1.7 cm thick. Mild left-sided obstructive uropathy, lymphadenopathy. Patient is found to have acute urinary tract infection secondary to sensitive E. coli. Patient was treated with IV antibiotic Levaquin and showed interval improvement. Patient will finish treatment with short course of oral antibiotics upon discharge. Patient he followed by urologist and cleared for discharge with recommendation for outpatient follow-up. outpatient TURBT and possible left stent ,you are tentatively scheduled for February [address] Mazariegos. Patient informed with this plan and he is agreeable to it. Patient remains asymptomatic upon discharge, his hematuria improving. No flank or abdominal pain. No fever. No other new complaints. Patient is eager to go home today. Patient was cleared for discharge by urologist dr. Mazariegos Problems and management plan were discussed with the patient and he verbalized understanding and acceptance Patient was found stable and can be discharged home in guarded prognosis however he needs follow-up as an outpatient. Patient was instructed to follow up with PCP within one week and patient agrees Patient was instructed to follow up with urologist dr. Mazariegos within 1 week after discharge and he is agreeable to call and make appointment as it is weekend. Patient also informed about his tentatively scheduled for February [address] Mazariegos once he agrees to follow up as an outpatient. Risks and details including but not limited to the risk of cancer and he verbalized understanding and acceptance to follow up Physical exam Gen: patient is a AAOx3, no distress CVS: S1-S2, RRR, no murmur Lungs: B/L CTA, no wheezing Abdomen: soft, no distention, no tenderness, positive bowel sounds Extremity: no leg edema or induration Time spent more than 35 minutes Patient Condition at Discharge: Fair Plan - Discharge Summary Discharge Rx Participant: No New Discharge Prescriptions: New Levofloxacin [Levaquin] 500 mg PO Q24H 7 Days #7 tab Nicotine 21Mg/24Hr Patch [Habitrol] 1 patch TRANSDERM DAILY #3 patch Discharge Medication List Levofloxacin [Levaquin] 500 mg PO Q24H 7 Days #7 tab 01/20/23 [Rx] Nicotine 21Mg/24Hr Patch [Habitrol] 1 patch TRANSDERM DAILY #3 patch 01/20/23 [Rx] Follow up Appointment(s)/Referral(s): Jimmy Bernardo MD [STAFF PHYSICIAN] - 1 Week (please call tomorrow for an appointment out pt surg for biopsy of bladder 02/06/2023) None,Stated [Primary Care Provider] - 1-2 days Patient Instructions/Handouts: Pelvic Pain in Men (DC) Activity/Diet/Wound Care/Special Instructions: regular diet activity is restricted till you see your doctor please follow up with your urologist on February 06 for further management pleaese you will requre outpatient TURBT and possible left stent ,you are tentatively scheduled for February [address] Mazariegos Discharge Disposition: HOME SELF-CARE
== END 2023-01-21 15:15 | disposition home or self-care (01) ==
LOC: EC 07:39 → 5NMEDONC 09:21 → INTOOBSV 09:21 → 6NMEDSUR 10:42
PROVIDERS: ADMIT Internal Medicine; ATTEND Internal Medicine
DX: N32.89 Other specified disorders of bladder (principal); N13.9 Obstructive and reflux uropathy, unspecified; N39.0 Urinary tract infection, site not specified; B96.20 Unspecified Escherichia coli [E. coli] as the cause of diseases classified elsewhere; R31.9 Hematuria, unspecified; D64.9 Anemia, unspecified; F17.200 Nicotine dependence, unspecified, uncomplicated
CPT/HCPCS: 96376; 96361 ×2; 96374; 99285; 36415; 80053; 83690; 85025 ×2; 85610; 85730; 81001; 87086; 87077; 87186; 84145; 93971; 71260; 74176; 74178; 74400; G0378 ×5; S4990 ×5; J3490 ×2; Q9967 ×2

== ENCOUNTER → 2023-01-30 | Outpatient (CLI) | payer OTHER ==
[2023-01-30 19:00] LABS: Basophils # (A) 0.06 X 10*3/uL (0.00-0.10); Basophils % (A) 0.6 %; Eosinophils % (A) 4.8 %; HCT 36.5 % (39.6-50.0); HGB 11.6 d/dL (13.0-17.0); Lymphocytes # (A) 1.97 X 10*3/uL (0.90-5.00); Lymphocytes % (A) 19.1 %; MCH 26.2 pg (27.0-32.0); MCHC 31.8 d/dL (32.0-37.0); MCV 82.4 FL (80.0-97.0); Mean Platelet Volume 11.7 FL (9.5-12.2); Monocytes # (A) 0.82 X 10*3/uL (0.20-1.00); Monocytes % (A) 7.9 %; NRBC Per 100 WBC 0 X 10*3/uL (0.00-0.01); Neutrophils # (A) 6.95 X 10*3/uL (1.80-7.70); Neutrophils % (A) 67.4 %; Platelet Count 282 X 10*3/uL (140-440); RBC 4.43 X 10*6/uL (4.40-5.60); RDW 14.2 % (11.5-14.5); WBC 10.32 X 10*3/uL (4.50-10.00)
[2023-01-30 19:28] LABS: Blood Urea Nitrogen 28.7 mg/dL (9.0-27.0); Calcium 9.3 mg/dL (8.7-10.3); Carbon Dioxide 23.2 mmol/L (21.6-31.8); Chloride 108 mmol/L (96-109); Glucose 74 mg/dL (70-110); Potassium 4.7 mmol/L (3.5-5.5); Sodium 143 mmol/L (135-145)
[2023-01-31 03:59] LABS: Appearance,Urine Cloudy (Clear); Bilirubin,Urine Negative (Negative); Blood,Urine Large (Negative); Color,Urine Yellow (Yellow); Ketones,Urine Trace (Negative); Nitrite,Urine Negative (Negative); PH, Urine 5.5; Specific Gravity,Urine 1.019 (1.001-1.030); Urobilinogen,Urine 0.2 E.U./DL
[2023-01-31 04:36] LABS: Bacteria,Urine None Seen (None Seen)
== END | disposition home or self-care (01) ==
LOC: LABPAT 15:13
PROVIDERS: ATTEND Urology
DX: Z01.812 Encounter for preprocedural laboratory examination (principal); D49.4 Neoplasm of unspecified behavior of bladder; R31.29 Other microscopic hematuria; R31.0 Gross hematuria
CPT/HCPCS: 36415; 80048; 81001; 85025; 87086

== ENCOUNTER 2023-02-06 08:56 | Day surgery (SDC) | payer OTHER ==
--- NOTE | 2023-02-02 08:07 | P.HPIHPCON ---
History of Present Illness H&P Date: 02/02/23 Chief Complaint: Bladder mass, left hydronephrosis This is a 62-year-old male with history of bladder mass that was seen on the CT that was done for gross hematuria. Additionally there is also evidence of left- sided hydronephrosis lymphadenopathy. Discussed this is highly concerning for bladder carcinoma. Discussed the next step is to proceed with surgical resection of a bladder tumor, and a possible left stent insertion. Aware of the risk which includes but not limited to bleeding, infection, bladder perforation. Discussed also the potential I might not be able to place a stent if unable to visualize the ureteral orifice. Risk of anesthesia was also discussed. He understood all risks and agree to proceed with transurethral resection of bladder tumor and left-sided stent insertion Consent for Procedure: I have explained the operation/procedure to the patient, including the risks, benefits, side effects, alternative therapies (including not receiving the proposed treatment or service), the likelihood of the patient achieving his/her goals, and potential recuperation problems for the procedure/sedation/analgesia, as well as any blood products, if indicated. I also explained to the patient the risks, benefits and side effects of the alternatives, as well as the risks related to not receiving the proposed procedure, care, treatment, or services. Past Medical History Past Medical History: No Reported History History of Any Multi-Drug Resistant Organisms: None Reported Past Surgical History: No Surgical Hx Reported Past Anesthesia/Blood Transfusion Reactions: No Reported Reaction Past Psychological History: No Psychological Hx Reported Smoking Status: Current every day smoker Past Alcohol Use History: Occasional Past Drug Use History: None Reported Medications and Allergies Home Medications Medication Instructions Recorded Confirmed Type Levofloxacin [Levaquin] 500 mg PO Q24H 7 Days #7 tab 01/20/23 Rx Nicotine 21Mg/24Hr Patch [Habitrol] 1 patch TRANSDERM DAILY #3 patch 01/20/23 Rx Allergies Allergy/AdvReac Type Severity Reaction Status Date / Time No Known Allergies Allergy Verified 01/17/23 10:33 Surgical - Exam - General no distress, no pain - Eyes normal ocular movement, no pale - ENT normal nares, normal mucosa - Respiratory normal expansion, normal respiratory effort - Abdomen Abdomen: soft, non tender Assessment and Plan Assessment: OR for TURBT, left-sided stent insertion
[2023-02-06] MEDS ORDERED: LACTATED RINGERS 1,000 ML IV ONE (09:35)
[2023-02-06] MEDS ORDERED: ONDANSETRON 4 MG/2 ML VIAL ONE (09:42)
[2023-02-06] MEDS ORDERED: DEXAMETHASONE SOD PHOSPHATE 4 MG/ML 1 ML VIAL IVP ONE (09:56)
[2023-02-06] MEDS ORDERED: ONDANSETRON 4 MG/2 ML VIAL IVP ONE ×2 (09:56→12:43)
[2023-02-06] MEDS ORDERED: LIDOCAINE 1% INJ 10MG/ML (20 ML MDV) ONE (10:00)
[2023-02-06] MEDS ORDERED: fentaNYL (PF) 50 MCG/ML 2 ML AMP ONE (10:00)
[2023-02-06] MEDS ORDERED: MIDAZOLAM 2 MG/2 ML VIAL ONE (10:00)
[2023-02-06] MEDS ORDERED: HYDROmorphone (PF) 1 MG/ML ONE (10:00)
[2023-02-06] MEDS ORDERED: PROPOFOL 10 MG/ML 20 ML VIAL IV ONE (10:00)
[2023-02-06] MEDS ORDERED: ROCURONIUM 10 MG/ML (5 ML VIAL) IV ONE (10:00)
[2023-02-06] MEDS ORDERED: SUCCINYLCHOLINE CHLORIDE 200 MG/10 ML VIAL IV ONE (10:00)
[2023-02-06] MEDS ORDERED: GLYCOPYRROLATE 0.2 MG/ML 2 ML VIAL ONE (10:00)
[2023-02-06] MEDS ORDERED: NEOSTIGMINE 1 MG/ML 10 ML VIAL ONE (10:00)
--- NOTE | 2023-02-06 11:38 | P.OP ---
Date of Procedure: 02/06/23 Preoperative Diagnosis: Bladder mass, left hydronephrosis Postoperative Diagnosis: Same Procedure(s) Performed: TURBT (Large) attempted left-sided stent insertion Implants: none Anesthesia: JOANNA Surgeon: Jimmy Bernardo Estimated Blood Loss (ml): 50 Pathology: other (Bladder mass) Condition: stable Disposition: PACU Indications for Procedure: This is a 62-year-old male with history of bladder mass that was seen on the CT that was done for gross hematuria. Additionally there is also evidence of left- sided hydronephrosis lymphadenopathy. Discussed this is highly concerning for bladder carcinoma. Discussed the next step is to proceed with surgical resection of a bladder tumor, and a possible left stent insertion. Aware of the risk which includes but not limited to bleeding, infection, bladder perforation. Discussed also the potential I might not be able to place a stent if unable to visualize the ureteral orifice. Risk of anesthesia was also discussed. He understood all risks and agree to proceed with transurethral resection of bladder tumor and left-sided stent insertion Operative Findings: Large papillary bladder mass involving the left trigone extending to the left lateral wall, total area of resection was 8 cm Description of Procedure: Patient brought to the operating room, general anesthesia was induced. He was prepped and draped in sterile fashion and placed in dorsal lithotomy position. Patient did have narrowing at the Navisularis fossa which was dilated, using the male Finney sounds to 30-Prydeinig. At this time a resectoscope fitted with a 25-Prydeinig sheath was inserted per urethra. Cystoscopy was performed which showed a mildly enlarged prostate that was nonobstructive, there was a large papillary tumor involving the left trigone extending along the left lateral wall, there was no additional satellite lesions, the bladder was heavily trabeculated. using the bipolar resectoscope the tumor was resected down to muscle, points of bleeding was controlled with cautery. All tumor specimen was irrigated out. Total area of resection was 8 cm Repeat cystoscopy showed no evidence of bleeding, tumor specimen, or residual tumor. The there was no evidence of bladder perforation. At this time a cystoscopy fitted 22-Prydeinig sheath was inserted per urethra, I attempted to identify the left ureteral orifice but was unable to. At this time the cystoscope was withdrawn and a 20- Prydeinig Benson was placed with the return of clear urine. Patient tolerated procedure well and was taken to recovery in stable condition
[2023-02-06 11:51] VITALS: TEMP 97.1
[2023-02-06] MEDS ORDERED: hydrALAZINE HCL 20 MG/ML 1 ML VIAL IVP ONE (12:05)
[2023-02-06] MEDS ORDERED: DEXAMETHASONE SOD PHOSPHATE 4 MG/ML 1 ML VIAL IV ONE (12:43)
[2023-02-06] MEDS ORDERED: LACTATED RINGERS 1,000 ML IV SCH (12:43)
[2023-02-06] MEDS ORDERED: LIDOCAINE 1% (10MG/ML) FOR IV START INTRADERMA PRN (12:43)
[2023-02-06] MEDS ORDERED: MIDAZOLAM 2 MG/2 ML VIAL IV PRN (12:43)
[2023-02-06] MEDS ORDERED: HYDROmorphone 0.5 MG/0.5 ML SYRINGE IVP PRN (12:43)
[2023-02-06] MEDS ORDERED: KETOROLAC 15 MG/ML 1 ML VIAL IVP ONE (13:14)
[2023-02-06] MEDS ORDERED: KETOROLAC 15 MG/ML 1 ML VIAL ONE (13:16)
[2023-02-06 14:08] VITALS: BP 152/84; PULSE 58; RESP 20
== END 2023-02-06 14:38 | disposition home or self-care (01) ==
LOC: OR 08:56
PROVIDERS: ATTEND Urology
DX: C67.9 Malignant neoplasm of bladder, unspecified (principal); N13.30 Unspecified hydronephrosis; D49.4 Neoplasm of unspecified behavior of bladder; F10.90 Alcohol use, unspecified, uncomplicated; Z79.2 Long term (current) use of antibiotics; Z87.891 Personal history of nicotine dependence
CPT/HCPCS: 52240; 52332; 88307; C1769; J2250; J0330; J0360; J1100; J2710; J0690; J2405; J2001; J3010; J1170; J1885; J2704

== ENCOUNTER 2023-02-06 22:12 | Emergency (ER) | payer OTHER ==
--- NOTE | 2023-02-06 22:55 | ED ---
Abdominal Pain HPI - General Source: RN notes reviewed <Catalina Bryan - Last Filed: 02/06/23 22:54> <Obi Shafer - Last Filed: 02/07/23 01:33> - General Stated Complaint: Urine Retention Time Seen by Provider: 02/06/23 22:54 - History of Present Illness Initial Comments: Patient is a 62-year-old male who presents the emergency department for Benson catheter problem. Patient states he was discharged from the hospital today after removal of a bladder tumor. Patient states the Benson has not been draining since he left the hospital. (Catalina Bryan) - Related Data Previous Rx's Medication Instructions Recorded Cephalexin [Keflex] 500 mg PO Q8HR #15 cap 02/06/23 Ketorolac [Toradol] 10 mg PO Q6HR #15 tab 02/06/23 Allergies Allergy/AdvReac Type Severity Reaction Status Date / Time No Known Allergies Allergy Verified 02/06/23 09:46 Review of Systems ROS Other: All systems not noted in ROS Statement are negative. <Catalina Bryan - Last Filed: 02/06/23 22:54> ROS Other: All systems not noted in ROS Statement are negative. <Obi Shafer - Last Filed: 02/07/23 01:33> ROS Statement: Those systems with pertinent positive or pertinent negative responses have been documented in the HPI. Past Medical History Past Medical History: No Reported History Additional Past Medical History / Comment(s): bladder tumor, burning on urination and pain, History of Any Multi-Drug Resistant Organisms: None Reported Past Surgical History: No Surgical Hx Reported Past Anesthesia/Blood Transfusion Reactions: No Reported Reaction Smoking Status: Former smoker - Past Family History Father Family Medical History: Cancer Additional Family Medical History / Comment(s): lung cancer, smoker <Catalina Bryan - Last Filed: 02/06/23 22:54> General Exam <Catalina Bryan - Last Filed: 02/06/23 22:54> - General Exam Comments Initial Comments: Visual Physical Exam Vital signs reviewed General: Well-appearing, nontoxic, no acute distress. Head: Normocephalic, atraumatic Eyes: PERRLA, EOMI ENT: Airway patent Chest: Nonlabored breathing Skin: No visual rash, normal skin tone Neuro: Alert and oriented 3 Musculoskeletal: No gross abnormalities (Catalina Bryan) Course Vital Signs 02/06/23 22:51 Temperature 98.9 F Pulse Rate 84 Respiratory 18 Rate Blood Pressure 161/74 O2 Sat by Pulse 96 Oximetry Medical Decision Making <Catalina Bryan - Last Filed: 02/06/23 22:54> - Medical Decision Making I performed the QuickNote portion of this chart - Catalina Bryan PA-C (Catalina Bryan) Disposition <Catalina Bryan - Last Filed: 02/06/23 22:54> Is patient prescribed a controlled substance at d/c from ED?: No <Obi Shafer - Last Filed: 02/07/23 01:33> Clinical Impression: Benson catheter problem Disposition: HOME SELF-CARE Condition: Good Instructions (If sedation given, give patient instructions): Benson Catheter Placement and Care (ED) Referrals: None,Stated [Primary Care Provider] - 1-2 days
[2023-02-06 23:04] VITALS: RESP 18
[2023-02-07 02:33] VITALS: BP 156/80; PULSE 58; TEMP 98.8
== END 2023-02-07 02:31 | disposition home or self-care (01) ==
LOC: EC 22:12
DX: T83.091A Other mechanical complication of indwelling urethral catheter, initial encounter (principal); Z87.891 Personal history of nicotine dependence
CPT/HCPCS: 99283

== ENCOUNTER → 2023-04-10 | Outpatient (CLI) | payer OTHER ==
[2023-04-10 14:38] LABS: African American GFR (CKD) 75 (>60 ml/min/1.73 sqM); Blood Urea Nitrogen 18 mg/dL (9-20); Non-African American GFR(CKD) 65 (>60 ml/min/1.73 sqM)
--- NOTE | 2023-04-12 11:49 | CT ---
EXAMINATION TYPE: CT ChestAbdPelvis w con CT DLP: 551.90 mGycm, Automated exposure control for dose reduction was used. DATE OF EXAM: 04/10/2023 3:20 PM COMPARISON: 01/18/2023, 01/17/2023.. CLINICAL INDICATION:Male, 63 years old with history of C67.9 BLADDER CA; , Bladder ca, observe for me ts Technique: CT ChestAbdPelvis w con; Multiple axial images were obtained. Two-dimensional coronal and sagittal reconstructions were obtained. Contrast used:100 mL of Isovue 300 with IV Contrast, Oral contrast used: with Oral Contrast Findings: CHEST: LUNGS/ PLEURA: Bulla paraseptal emphysematous changes most pronounced in the right lung apex. Partial ly calcified right lower lobe nodule measuring 9 mm is stable, no right lower lobe nodule measuring 7 mm series 3 image 53, increasing Left lower lobe 7 mm pulmonary nodule series 3 image 59, previously 4 mm. There is streaky atelectasis in the right lung base. AIRWAY: Patent and unremarkable. HEART: Size within normal limits. There is mild coronary cusp patient's present. MEDIASTINUM: No gross evidence of adenopathy. VASCULATURE: No aortic aneurysm. MUSCULOSKELETAL: No acute osseous abnormalities., Stable left clavicle thinly sclerotic lucent lesion . SOFT TISSUES/LYMPH NODES: Unremarkable. LOWER NECK: No significant findings. ABDOMEN: ABDOMEN LIVER: Hypodense lesion series 3 image 84 in the left hepatic lobe segment 3 measuring up to 14 mm. GALLBLADDER AND BILE DUCTS: Unremarkable. PANCREAS: Unremarkable. SPLEEN: Unremarkable. ADRENAL GLANDS: Unremarkable. KIDNEYS AND URETERS: No evidence of hydronephrosis or renal calculus. The ureters are unremarkable. PELVIS BLADDER: Circumferential thickening of the left bladder wall with partial obstruction of the left ure ter orifice. Wall thickening measuring up to 24 mm on coronal imaging which may be mildly increased f rom prior on January where measured 13 mm when measuring similarly. REPRODUCTIVE: Unremarkable. ABDOMEN & PELVIS STOMACH AND BOWEL: No evidence of bowel obstruction. PERITONEUM: No evidence of pneumoperitoneum or free fluid. VASCULATURE: Mild atherosclerotic calcifications are present throughout the abdominal aorta and its b ranches. MUSCULOSKELETAL: No acute osseous abnormalities, lucent lesion within the left proximal femur is unch anged. Sclerotic focus in the inferior pubic ramus series 3 image 138 is new measuring 4 mm LYMPH NODES: Retroperitoneal lymph node at the level of the left kidney measuring 15 mm appears incre ased in size from prior and morphology present measuring 10 mm. The left pelvic lymph node near the b ifurcation of the common iliac artery measuring 12 mm in short axis, previously 10 mm series 3 image 108. Additional other left pelvic sidewall lymph nodes and hazy ill-defined tissue. SOFT TISSUE/ABDOMINAL WALL: Unremarkable IMPRESSION: 1. Findings of progression of disease with Left lateral bladder wall eccentric thickening with parti al obstruction of the left ureter and mild left hydronephrosis. Hydronephrosis has mildly progressed from prior on 01/18/2023. New segment 3 liver lesion concerning metastatic disease. Right lower lobe and increasing size of left lower lobe pulmonary nodules. Lastly, recent size of retroperitoneal lymp h node at the level of the left kidney and left pelvic sidewall nodes. 2. Indeterminate right inferior pubic ramus 4 mm sclerotic focus. Attention follow-up imaging for os seous metastatic disease.
== END | disposition home or self-care (01) ==
LOC: RADCTMAIN 13:15
PROVIDERS: ATTEND Internal Medicine
DX: C67.9 Malignant neoplasm of bladder, unspecified (principal); N32.89 Other specified disorders of bladder; N13.30 Unspecified hydronephrosis; R91.8 Other nonspecific abnormal finding of lung field; C79.51 Secondary malignant neoplasm of bone
CPT/HCPCS: 82565; 84520; 71260; 74177; 36415; Q9967

== ENCOUNTER → 2023-04-26 | Outpatient (CLI) | payer OTHER ==
--- NOTE | 2023-04-26 15:07 | US ---
EXAMINATION TYPE: US liver DATE OF EXAM: 04/26/2023 COMPARISON: CT 04/10/2023 CLINICAL INDICATION: Male, 63 years old with history of C67.9 MALIGNANT NEOPLASM OF BLADDER, UNSPECI FIED; Patient states they are checking on the lesion that was seen on CT. No other pain or symptoms TECHNIQUE: Multiple sonographic images of the right upper quadrant are obtained. FINDINGS: EXAM MEASUREMENTS: Liver Length: 17.5 cm Gallbladder Wall: 0.3 cm CBD: 0.2 cm Right Kidney: 11.5 x 5.7 x 5.3 cm [facility] [facility] PRESIDENT NOTES:Limited visualization due to overlying bowel gas Pancreas: Limited visualization of the tail due to bowel gas shadowing. Visualized portions within n ormal limits. Liver: Hypodense lesion seen on CT, NOT visualized with ultrasound today. Gallbladder: wnl Evidence for sonographic Smith's sign: No CBD: wnl Right Kidney: No hydronephrosis or masses seen IMPRESSION: 1. The hypodense lesion anterior liver seen on CT of 04/10/2023 is not appreciated by ultrasound. Follo w-up CT or MRI as clinically indicated. 2. No gallstones or biliary ductal dilatation.
== END | disposition home or self-care (01) ==
LOC: RADUSWWP 08:18
PROVIDERS: ATTEND Internal Medicine
DX: C67.9 Malignant neoplasm of bladder, unspecified (principal)
CPT/HCPCS: 76705

== ENCOUNTER → 2023-05-02 | Outpatient (CLI) | payer OTHER ==
--- NOTE | 2023-05-02 14:15 | US ---
EXAMINATION TYPE: US scrotum with doppler. TECHNIQUE: Grayscale and color Doppler Duplex imaging performed of the scrotum. DATE OF EXAM: 05/02/2023 COMPARISON: NONE CLINICAL INDICATION: Male, 63 years old with history of N50.819 TESTICULAR PAIN, UNSPECIFIED; Shootin g testicular pain, more so on the left side. Patient states that it keeps him awake at night. EXAM MEASUREMENTS: TESTICLES: Right Testicle: 4.1 x 1.8 x 3.6 cm Left Testicle: 4.8 x 4.8 x 3.5 cm EPIDIDYMIS HEAD: Right Epididymis: 1.0 cm with an incidental tiny 4 mm epididymal head cyst. Left Epididymis: 1.0 cm Doppler performed to assess for testicular vascularity; good bilateral color flow and waveforms are s een. There is no evidence of testicular torsion. Presence of hydroceles: Small, bilateral hydroceles visualized Presence of varicoceles: No IMPRESSION: 1. No sonographic evidence for testicular torsion or epididymoorchitis. 2. Small bilateral hydroceles.
== END | disposition home or self-care (01) ==
LOC: RADUSWWP 13:21
PROVIDERS: ATTEND Internal Medicine
DX: N43.3 Hydrocele, unspecified (principal)
CPT/HCPCS: 76870; 93975

== ENCOUNTER 2023-05-15 06:04 | Emergency (ER) | payer OTHER ==
[2023-05-15 06:34] VITALS: RESP 18
--- NOTE | 2023-05-15 06:40 | ED ---
Male Urogenital HPI - General Chief complaint: Urogenital Stated complaint: abd pain Time Seen by Provider: 05/15/23 06:21 Source: patient, RN notes reviewed Mode of arrival: wheelchair Limitations: no limitations - History of Present Illness Initial comments: This is a 63-year-old male who presents to the emergency for abdominal pain. Patient has metastatic bladder cancer, and reports increasing pelvic and genitalia pain over the last couple of weeks. However, over the last 2-3 days the pain has been much more severe. He had several forms of imaging last month and there was not any clear cause for his symptoms. He was supposed to see Dr. Bernardo yesterday, however the pain was too severe and he had canceled the appointment. He rescheduled the appointment with Dr. Bernardo for tomorrow, however he was unable to sleep due to the pain. He used to be prescribed Tramadol, however he ran out and this was not effective. He has since been alternating with Ibuprofen and Tylenol, however he had to stop Ibuprofen due to an upcoming liver biopsy in 3 days. Denies any nausea or vomiting. He does have some discomfort with urination. - Related Data Home Medications Medication Instructions Recorded Confirmed Phenazopyridine [Pyridium] 200 mg PO TID 04/16/23 04/16/23 Previous Rx's Medication Instructions Recorded HYDROcodone/APAP 10-325MG [Anderson 1 tab PO Q4HR PRN 3 Days #18 tab 05/15/23 10-325] Allergies Allergy/AdvReac Type Severity Reaction Status Date / Time Iodinated Contrast Media Allergy Rash/Hives Verified 05/15/23 08:03 Review of Systems ROS Statement: Those systems with pertinent positive or pertinent negative responses have been documented in the HPI. ROS Other: All systems not noted in ROS Statement are negative. 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 Past Anesthesia/Blood Transfusion Reactions: No Reported Reaction Past Psychological History: No Psychological Hx Reported Smoking Status: Former smoker Past Alcohol Use History: Occasional Past Drug Use History: None Reported - Past Family History Father Family Medical History: Cancer Additional Family Medical History / Comment(s): lung cancer, smoker General Exam Limitations: no limitations General appearance: alert, in distress Head exam: Present: atraumatic, normocephalic, normal inspection Respiratory exam: Present: normal lung sounds bilaterally. Absent: respiratory distress, wheezes, rales, rhonchi, stridor Cardiovascular Exam: Present: regular rate, normal rhythm, normal heart sounds. Absent: systolic murmur, diastolic murmur, rubs, gallop, clicks GI/Abdominal exam: Present: soft, normal bowel sounds. Absent: distended, tenderness, guarding, rebound, rigid exam: Present: normal inspection. Absent: urethral discharge Neurological exam: Present: alert, oriented X3, CN II-XII intact Psychiatric exam: Present: normal affect, normal mood Skin exam: Present: warm, dry, intact, normal color. Absent: rash Course Vital Signs 05/15/23 05/15/23 05/15/23 06:18 07:32 08:12 Temperature 98 F 98.3 F Pulse Rate 75 70 64 Respiratory 18 18 18 Rate Blood Pressure 167/98 175/94 O2 Sat by Pulse 96 94 L 95 Oximetry 05/15/23 05/15/23 05/15/23 08:58 10:01 10:22 Temperature 97.9 F Pulse Rate 68 63 63 Respiratory 18 18 18 Rate Blood Pressure 182/92 200/107 164/90 O2 Sat by Pulse 96 94 L 95 Oximetry Medical Decision Making - Medical Decision Making This is a 63 year old male who presents to the emergency department for pelvic/ genitalia pain. Was pt. sent in by a medical professional or institution? @ -No Did you speak to anyone other than the patient for history? @ -No Did you review nursing and triage notes? @ -Yes, and I agree, it is accurate with regards to the patient's symptoms. Were old charts reviewed? @ -No Differential Diagnosis? @ -Differential Genitalia/Pelvic Pain: UTI, ureteral calculus, progression of cancer, testicular torsion, epididymitis, this is not meant to be an all inclusive list. EKG interpreted by me (3pts min.)? @ -Not obtained X-rays interpreted by me (1pt min.)? @ -Not obtained CT interpreted by me (1pt min.)? @ -CT scan of the abdomen and pelvis obtained. Interpretation identifies bladder wall thickening. U/S interpreted by me (1pt. min.)? @ -Not obtained What testing was considered but not performed? (CT, X-rays, U/S, labs)? Why? @ -None What meds were considered but not given? Why? @ -None Did you discuss the management of the patient with other professionals? @ -No Did you reconcile home meds? @ -No Was smoking cessation discussed for >3mins.? @ -No Was critical care preformed (if so, how long)? @ -No Were there social determinants of health that impacted care today? How? (Ho melessness, low income, unemployed, alcoholism, drug addiction, transportation, low edu. Level, literacy, decrease access to med. care, care home, rehab)? @ -No Was there de-escalation of care discussed even if they declined? (Discuss DNR or withdrawal of care, Hospice)? @ -No What co-morbidities impacted this encounter? (DM, HTN, Smoking, COPD, CAD, Cancer, CVA, Hep., AIDS, mental health diagnosis, sleep apnea, morbid obesity)? @ -Bladder cancer Was patient admitted / discharged? @ -Discharged. Lab work obtained revealing leukocytosis and minor ARNALDO. Lab work was otherwise unremarkable. Patient under strict instructions to avoid NSAIDs at this time due to upcoming procedure. He was subsequently treated with IV fluids and Dilauded. He did have improvement in symptoms with the Dilauded. CT scan of the abdomen and pelvis reveals eccentric bladder wall thickening consistent with malignancy. This does appear to have progressed when compared with imaging obtained on 04/10/23. Findings reviewed with the patient. He was concerned about having to drive to [place] tomorrow for lab work given the amount of pain he was in and inability to tolerate long car rides. We did reach out to the office to see what blood work they requested prior to the liver biopsy. They requested a CBC and PT/PTT. CBC had been done, however we did obtained the coags as well and results were faxed to [place] per the patient's request and with his approval to save him an extra trip. Given the patient's malignancy and extensive pain, I was willing to prescribe him with Anderson for the next few days. He was reminded that this may make him drowsy. Patient discharged home in stable con dition and will follow up with urology tomorrow. Undiagnosed new problem with uncertain prognosis? @ -None Drug Therapy requiring intensive monitoring for toxicity (Heparin, Nitro, Insulin, Cardizem)? @ -None Were any procedures done? @ -None Diagnosis/symptom? @ -Pelvic pain, pain in male genitalia Acute, or Chronic, or Acute on Chronic? @ -Acute Uncomplicated (without systemic symptoms) or Complicated (systemic symptoms)? @ -Uncomplicated Side effects of treatment? @ -None Exacerbation, Progression, or Severe Exacerbation] @ -Not applicable Poses a threat to life or bodily function? @ -The pain is having an impact on his ability to function. Return precautions reviewed in depth, the patient is instructed to return to the emergency department with any new, worsening, or concerning symptoms. Patient verbalized understanding. This case was discussed in detail with the attending ED physician, Dr. Staton. Presentation, findings, and treatment plan discussed in detail as well. - Lab Data Result diagrams: 05/15/23 06:36 05/15/23 06:36 Lab Results 05/15/23 05/15/23 05/15/23 Range/Units 06:36 06:36 06:36 WBC 11.7 H (3.8-10.6) k/uL RBC 4.63 (4.30-5.90) m/uL Hgb 11.6 L (13.0-17.5) gm/dL Hct 34.8 L (39.0-53.0) % MCV 75.2 L (80.0-100.0) fL MCH 25.0 (25.0-35.0) pg MCHC 33.3 (31.0-37.0) g/dL RDW 14.0 (11.5-15.5) % Plt Count 283 (150-450) k/uL MPV 8.9 Neutrophils % 80 % Lymphocytes % 8 % Monocytes % 7 % Eosinophils % 4 % Basophils % 0 % Neutrophils # 9.3 H (1.3-7.7) k/uL Lymphocytes # 1.0 (1.0-4.8) k/uL Monocytes # 0.8 (0-1.0) k/uL Eosinophils # 0.4 (0-0.7) k/uL Basophils # 0.0 (0-0.2) k/uL Microcytosis Slight PT (10.0-12.5) sec INR (<1.2) APTT (22.0-30.0) sec Sodium 135 L (137-145) mmol/L Potassium 4.5 (3.5-5.1) mmol/L Chloride 106 (98-107) mmol/L Carbon Dioxide 18 L (22-30) mmol/L Anion Gap 11 mmol/L BUN 21 H (9-20) mg/dL Creatinine 1.45 H (0.66-1.25) mg/dL Est GFR (CKD-EPI)AfAm 59 (>60 ml/min/1.73 sqM) Est GFR (CKD-EPI)NonAf 51 (>60 ml/min/1.73 sqM) Glucose 102 H (74-99) mg/dL Plasma Lactic Acid Milad (0.7-2.0) mmol/L Calcium 10.0 (8.4-10.2) mg/dL Total Bilirubin 1.1 (0.2-1.3) mg/dL AST 32 (17-59) U/L ALT 25 (4-49) U/L Alkaline Phosphatase 103 (38-126) U/L Total Protein 7.4 (6.3-8.2) g/dL Albumin 4.4 (3.5-5.0) g/dL Urine Color Light Yellow Urine Appearance Clear (Clear) Urine pH 5.5 (5.0-8.0) Ur Specific [place] 1.008 (1.001-1.035) Urine Protein Trace H (Negative) Urine Glucose (UA) Negative (Negative) Urine Ketones 1+ H (Negative) Urine Blood Large H (Negative) Urine Nitrite Negative (Negative) Urine Bilirubin Negative (Negative) Urine Urobilinogen <2.0 (<2.0) mg/dL Ur Leukocyte Esterase Negative (Negative) Urine RBC >182 H (0-5) /hpf Urine WBC 7 H (0-5) /hpf Urine Bacteria Rare H (None) /hpf Urine Mucus Rare H (None) /hpf 05/15/23 05/15/23 Range/Units 06:36 08:53 WBC (3.8-10.6) k/uL RBC (4.30-5.90) m/uL Hgb (13.0-17.5) gm/dL Hct (39.0-53.0) % MCV (80.0-100.0) fL MCH (25.0-35.0) pg MCHC (31.0-37.0) g/dL RDW (11.5-15.5) % Plt Count (150-450) k/uL MPV Neutrophils % % Lymphocytes % % Monocytes % % Eosinophils % % Basophils % % Neutrophils # (1.3-7.7) k/uL Lymphocytes # (1.0-4.8) k/uL Monocytes # (0-1.0) k/uL Eosinophils # (0-0.7) k/uL Basophils # (0-0.2) k/uL Microcytosis PT 10.4 (10.0-12.5) sec INR 0.9 (<1.2) APTT 25.9 (22.0-30.0) sec Sodium (137-145) mmol/L Potassium (3.5-5.1) mmol/L Chloride (98-107) mmol/L Carbon Dioxide (22-30) mmol/L Anion Gap mmol/L BUN (9-20) mg/dL Creatinine (0.66-1.25) mg/dL Est GFR (CKD-EPI)AfAm (>60 ml/min/1.73 sqM) Est GFR (CKD-EPI)NonAf (>60 ml/min/1.73 sqM) Glucose (74-99) mg/dL Plasma Lactic Acid Milad 1.0 (0.7-2.0) mmol/L Calcium (8.4-10.2) mg/dL Total Bilirubin (0.2-1.3) mg/dL AST (17-59) U/L ALT (4-49) U/L Alkaline Phosphatase (38-126) U/L Total Protein (6.3-8.2) g/dL Albumin (3.5-5.0) g/dL Urine Color Urine Appearance (Clear) Urine pH (5.0-8.0) Ur Specific [place] (1.001-1.035) Urine Protein (Negative) Urine Glucose (UA) (Negative) Urine Ketones (Negative) Urine Blood (Negative) Urine Nitrite (Negative) Urine Bilirubin (Negative) Urine Urobilinogen (<2.0) mg/dL Ur Leukocyte Esterase (Negative) Urine RBC (0-5) /hpf Urine WBC (0-5) /hpf Urine Bacteria (None) /hpf Urine Mucus (None) /hpf - Radiology Data Radiology results: report reviewed, image reviewed Disposition Clinical Impression: Bladder cancer, Pain of male genitalia Disposition: HOME SELF-CARE Additional Instructions: Return to the emergency department with any new, worsening, or concerning symptoms. You can take the Anderson every 4-6 hours as needed for pain relief. You can take this with Tylenol as well to further help with pain relief. Do not take more than 4g (4000mg) of Tylenol a day. Follow up with Dr. Bernardo as scheduled tomorrow. Prescriptions: HYDROcodone/APAP 10-325MG [Anderson 10-325] 1 tab PO Q4HR PRN 3 Days #18 tab PRN Reason: Pain Is patient prescribed a controlled substance at d/c from ED?: Yes When asked, does pt state using other controlled substances?: No If prescribed controlled substance>3 days was MAPS reviewed?: Prescribed <3 Days Referrals: None,Stated [Primary Care Provider] - 1-2 days Jimmy Bernardo MD [STAFF PHYSICIAN] - 1-2 days Time of Disposition: 09:31
[2023-05-15] MEDS: HYDROmorphone 1 MG/ML 1 ML SYRINGE IVP STA ×3 (06:42→09:36)
[2023-05-15] MEDS: SODIUM CHLORIDE 0.9% 1,000 ML IV STA (06:42)
[2023-05-15 06:49] LABS: Basophils % (A) 0 %; Eosinophils # (A) 0.4 k/uL (0-0.7); Eosinophils % (A) 4 %; HCT 34.8 % (39.0-53.0); HGB 11.6 gm/dL (13.0-17.5); Lymphocytes % (A) 8 %; MCHC 33.3 g/dL (31.0-37.0); MCV 75.2 fL (80.0-100.0); Mean Platelet Volume 8.9; Microcytosis Slight; Monocytes # (A) 0.8 k/uL (0-1.0); Monocytes % (A) 7 %; Neutrophils # (A) 9.3 k/uL (1.3-7.7); Neutrophils % (A) 80 %; Platelet Count 283 k/uL (150-450); RBC 4.63 m/uL (4.30-5.90); WBC 11.7 k/uL (3.8-10.6)
[2023-05-15 07:00] LABS: ALT 25 U/L (4-49); African American GFR (CKD) 59 (>60 ml/min/1.73 sqM); Albumin 4.4 g/dL (3.5-5.0); Anion Gap 11 mmol/L; Blood Urea Nitrogen 21 mg/dL (9-20); Carbon Dioxide 18 mmol/L (22-30); Chloride 106 mmol/L (98-107); Glucose 102 mg/dL (74-99); Non-African American GFR(CKD) 51 (>60 ml/min/1.73 sqM); Sodium 135 mmol/L (137-145); Total Bilirubin 1.1 mg/dL (0.2-1.3); Total Protein 7.4 g/dL (6.3-8.2)
[2023-05-15 07:30] LABS: AST 32 U/L (17-59); Alkaline Phosphatase 103 U/L (38-126); Potassium 4.5 mmol/L (3.5-5.1)
[2023-05-15 08:01] LABS: Appearance,Urine Clear (Clear); Bacteria,Urine Rare /hpf; Bilirubin,Urine Negative (Negative); Blood,Urine Large (Negative); Color,Urine Light Yellow; Glucose,Urine (UA) Negative (Negative); Ketones,Urine 1+ (Negative); Leukocyte Esterase,Urine Negative (Negative); Mucus,Urine Rare /hpf; Nitrite,Urine Negative (Negative); PH, Urine 5.5 (5.0-8.0); Protein,Urine Trace (Negative); RBC,Urine >182 /hpf (0-5); Specific Gravity,Urine 1.008 (1.001-1.035); Urobilinogen,Urine <2.0 mg/dL (<2.0); WBC,Urine 7 /hpf (0-5)
--- NOTE | 2023-05-15 08:06 | CT ---
EXAMINATION TYPE: CT abdomen pelvis w con CT DLP: 545 mGycm, Automated exposure control for dose reduction was used. DATE OF EXAM: 05/15/2023 7:55 AM COMPARISON: CT abdomen pelvis most recent from 04/10/2023 CLINICAL INDICATION:Male, 63 years old with history of Increasing lower abdominal pain; TECHNIQUE: Axial CT abdomen pelvis w con;Sagittal and coronal reformats were created on a separate w orkstation. Contrast used: mL of , (none if empty) Oral contrast used: (none if empty) FINDINGS: LOWER CHEST: The lobe calcified granuloma. Streaky atelectasis lung bases. Partially visualized left lower lobe anterior pulmonary nodule measuring 7 mm which is stable from prior. ABDOMEN LIVER: Unremarkable GALLBLADDER AND BILE DUCTS: Unremarkable. PANCREAS: Unremarkable. SPLEEN: Unremarkable. ADRENAL GLANDS: Unremarkable. KIDNEYS AND URETERS, BLADDER: There is eccentric left bladder wall thickening along the bladder wall measuring up to 23 mm and extending approximately 9.4 cm. This appears progressed from prior imaging in 05-02. This does appear to cover the opening of the ureters bilaterally. There is moderate left hyd roureteronephrosis and mild right. Soft tissue from the bladder eccentric wall thickening extends tata n near the seminal vesicles and prostate. Ill-defined streaky edema/soft tissue seen in the left pelv is similar prior. REPRODUCTIVE: Unremarkable. ABDOMEN & PELVIS STOMACH AND BOWEL: No evidence of bowel obstruction. PERITONEUM/RETROPERITONEUM: No evidence of pneumoperitoneum. Trace amount of free fluid in the pelvis . VASCULATURE: No evidence of aortic aneurysm. MUSCULOSKELETAL: No acute osseous abnormalities, lucent lesion in the right proximal femur likely rep resenting a bone cyst. LYMPH NODES: Few scattered lymph nodes are seen in the retroperitoneum including near the left kidney renal sinus measuring up to 11.5 mm in short axis. SOFT TISSUE/ABDOMINAL WALL: Unremarkable IMPRESSION: Eccentric bladder wall thickening compatible with malignancy. Finding appears progressed compared to prior on 04/10/2023. This results in moderate left hydroureteronephrosis and mild right.
[2023-05-15] MEDS: methylPREDNISolone SOD SUCCI 125 MG/2 ML VIAL IV STA (08:08)
[2023-05-15] MEDS: diphenhydrAMINE 50 MG/ML 1 ML VIAL IVP STA (08:10)
[2023-05-15 09:18] LABS: INR 0.9 (<1.2); Partial Thromboplastin Time 25.9 sec (22.0-30.0); Prothrombin Time 10.4 sec (10.0-12.5)
[2023-05-15] MEDS: hydrALAZINE HCL 20 MG/ML 1 ML VIAL IVP STA (10:06)
[2023-05-15 10:07] VITALS: PULSE 63
[2023-05-15 10:35] VITALS: BP 164/90; TEMP 97.9
== END 2023-05-15 10:29 | disposition home or self-care (01) ==
LOC: EC 06:04
DX: C67.9 Malignant neoplasm of bladder, unspecified (principal); N32.89 Other specified disorders of bladder; N17.9 Acute kidney failure, unspecified; Z87.891 Personal history of nicotine dependence; Z91.041 Radiographic dye allergy status
CPT/HCPCS: 99284 ×2; 96374 ×2; 96375 ×4; 96376 ×3; 96361 ×2; 36415; 80053; 83605; 85025; 85610; 85730; 81001; 74177; J0360; J1200; J2930; J1170; Q9967

== ENCOUNTER 2023-05-25 15:59 | Inpatient (IN) | payer OTHER ==
--- NOTE | 2023-05-25 16:18 | ED ---
SOB HPI - General Source: patient, family, RN notes reviewed Mode of arrival: wheelchair Limitations: no limitations <Mel Haines - Last Filed: 05/25/23 16:16> - History of Present Illness MD Complaint: shortness of breath, cough, anxiety -: days(s) Severity: severe Severity scale (1-10): 9 Consistency: constant Improves With: nothing Known History Of: COPD Context: recent URI Associated Symptoms: chest pain, cough Treatments Prior to Arrival: none <Edward Denton - Last Filed: 06/03/23 15:55> - General Stated Complaint: SOB Time Seen by Provider: 05/25/23 16:16 - History of Present Illness Initial Comments: Patient is a 63-year-old male presented to ER with chief complaint of dyspnea. Patient was sent here by Dr. Hankins for CT to rule out PE. Patient's first treatment was 05-23-2023. Patient is from ct in treatment for bladder cancer. (Mle Haines) This is a 63-year-old male brought in for evaluation of severe weakness dyspnea and concern for PE secondary to cancer on treatment. (Edward Denton) - Related Data Home Medications Medication Instructions Recorded Confirmed Ondansetron [Zofran] 4 mg PO Q4H PRN 05/25/23 05/25/23 amLODIPine [Norvasc] 5 mg PO DAILY 05/25/23 05/25/23 Previous Rx's Medication Instructions Recorded HYDROcodone/APAP 10-325MG [[place] 1 tab PO Q4HR PRN 3 Days #18 tab 05/15/23 10-325] Allergies Allergy/AdvReac Type Severity Reaction Status Date / Time Iodinated Contrast Media Allergy Neck Verified 05/25/23 22:49 swelling Review of Systems ROS Other: All systems not noted in ROS Statement are negative. <Mel Haines - Last Filed: 05/25/23 16:16> ROS Other: All systems not noted in ROS Statement are negative. <Edward Denton - Last Filed: 06/03/23 15:55> ROS Statement: Those systems with pertinent positive or pertinent negative responses have been documented in the HPI. 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 Past Anesthesia/Blood Transfusion Reactions: No Reported Reaction Past Psychological History: No Psychological Hx Reported Smoking Status: Former smoker Past Alcohol Use History: Occasional Past Drug Use History: None Reported - Past Family History Father Family Medical History: Cancer Additional Family Medical History / Comment(s): lung cancer, smoker <Mel Haines - Last Filed: 05/25/23 16:16> General Exam Limitations: no limitations <Mel Haines - Last Filed: 05/25/23 16:16> Limitations: altered mental status General appearance: alert, appears intoxicated, lethargic, in distress, cachectic Head exam: Present: atraumatic, normocephalic, normal inspection Eye exam: Present: normal appearance, PERRL, EOMI. Absent: scleral icterus, conjunctival injection, periorbital swelling ENT exam: Present: normal exam, mucous membranes moist Neck exam: Present: normal inspection. Absent: tenderness, meningismus, lymphadenopathy Respiratory exam: Present: normal lung sounds bilaterally. Absent: respiratory distress, wheezes, rales, rhonchi, stridor Cardiovascular Exam: Present: regular rate, normal rhythm, normal heart sounds. Absent: systolic murmur, diastolic murmur, rubs, gallop, clicks GI/Abdominal exam: Present: soft, normal bowel sounds. Absent: distended, tenderness, guarding, rebound, rigid Extremities exam: Present: normal inspection, full ROM, normal capillary refill. Absent: tenderness, pedal edema, joint swelling, calf tenderness Back exam: Present: normal inspection Neurological exam: Present: alert, oriented X3, CN II-XII intact Psychiatric exam: Present: normal affect, normal mood Skin exam: Present: warm, dry, intact, normal color. Absent: rash <Edward Denton - Last Filed: 06/03/23 15:55> - General Exam Comments Initial Comments: Visual Physical Exam Vital signs reviewed General: Well-appearing, nontoxic, no acute distress. Head: Normocephalic, atraumatic Eyes: PERRLA, EOMI ENT: Airway patent Chest: Nonlabored breathing Skin: No visual rash, normal skin tone Neuro: Alert and oriented 3 Musculoskeletal: No gross abnormalities (Mel Haines) Course <Edward Denton - Last Filed: 06/03/23 15:55> Vital Signs 05/25/23 05/25/23 05/25/23 16:10 19:37 21:23 Temperature 97.7 F Pulse Rate 70 85 94 Pulse Rate [ Left] Respiratory 18 20 20 Rate Blood Pressure 189/102 188/119 187/93 Blood Pressure [Left Arm] O2 Sat by Pulse 97 98 95 Oximetry 05/25/23 05/25/23 05/25/23 22:03 22:15 23:01 Temperature Pulse Rate 80 81 88 Pulse Rate [ Left] Respiratory 22 Rate Blood Pressure 191/99 Blood Pressure [Left Arm] O2 Sat by Pulse 95 Oximetry 05/25/23 05/26/23 05/26/23 23:30 00:00 00:30 Temperature Pulse Rate 80 72 81 Pulse Rate [ Left] Respiratory 19 15 13 Rate Blood Pressure 180/100 173/105 176/98 Blood Pressure [Left Arm] O2 Sat by Pulse 95 94 L 97 Oximetry 05/26/23 05/26/23 01:00 01:40 Temperature 97.1 F L Pulse Rate 70 Pulse Rate [ 102 H Left] Respiratory 13 20 Rate Blood Pressure 163/101 Blood Pressure 197/92 [Left Arm] O2 Sat by Pulse 95 97 Oximetry - Reevaluation(s) Reevaluation #1: 05/25/23 21:49 Medical records reviewed (Edward Denton) Reevaluation #2: 05/25/23 21:49 Symptoms are unchanged feeling improved with hydration (Edward Denton) Reevaluation #3: patient is informed of results and questions answered (Edward Denton) Reevaluation #4: Was pt. sent in by a medical professional or institution (, PA, ROLLER OPERATOR, urgent care, hospital, or senior living...) When possible be specific @ -no Did you speak to anyone other than the patient for history (EMS, parent, family, police, friend...)? What history was obtained from this source @ -no Did you review nursing and triage notes (agree or disagree)? Why? @ -agree Are old charts reviewed (outside hosp., previous admission, EMS record, old EKG, old radiological studies, urgent care reports/EKG's, senior living records)? Report findings @ -yes Differential Diagnosis (chest pain, altered mental status, abdominal pain women, abdominal pain men, vaginal bleeding, weakness, fever, dyspnea, syncope, headache, dizziness, GI bleed, back pain, seizure, CVA, palpatations, mental health, musculoskeletal)? @ -prior EKG interpreted by me (3pts min.). @ -no X-rays interpreted by me (1pt min.). @ -yes negative for acute disease CT interpreted by me (1pt min.). @ -no U/S interpreted by me (1pt. min.). @ -no What testing was considered but not performed or refused? (CT, X-rays, U/S, labs)? Why? @ -none What meds were considered but not given or refused? Why? @ -none Did you discuss the management of the patient with other professionals (professionals i.e. , PA, ROLLER OPERATOR, lab, RT, psych nurse, mental health social worker, underwater photographer, teacher, upscale security officer, geriatric case manager)? Give summary @ -no Was smoking cessation discussed for >3mins.? @ -no Was critical care preformed (if so, how long)? @ -no Were there social determinants of health that impacted care today? How? (Ho melessness, low income, unemployed, alcoholism, drug addiction, transportation, low edu. Level, literacy, decrease access to med. care, prison, rehab)? @ -none Was there de-escalation of care discussed even if they declined (Discuss DNR or withdrawal of care, Hospice)? DNR status @ -no What co-morbidities impacted this encounter? (DM, HTN, Smoking, COPD, CAD, Cancer, CVA, ARF, Chemo, Hep., AIDS, mental health diagnosis, sleep apnea, morbid obesity)? @ -none Was patient admitted / discharged? Hospital course, mention meds given and route, prescriptions, significant lab abnormalities, going to OR and other pertinent info. @ - 63 male to the ER for evaluation patient presents today for evaluation of severe weakness patient will be admitted for severe renal failure dehydration IV hydration and urology to evaluate regarding cancer Admitted Undiagnosed new problem with uncertain prognosis? @ -no Drug Therapy requiring intensive monitoring for toxicity (Heparin, Nitro, Insulin, Cardizem)? @ -no Were any procedures done? @ -no Diagnosis/symptom? @ -Weakness, CA Acute, or Chronic, or Acute on Chronic? @ -Acute Uncomplicated (without systemic symptoms) or Complicated (systemic symptoms)? @ -Complicated Side effects of treatment? @ -no Exacerbation, Progression, or Severe Exacerbation? @ -exacerbation Poses a threat to life or bodily function? How? (Chest pain, [place], [place], pneumonia, PE, COPD, DKA, ARF, appy, cholecystitis, CVA, Diverticulitis, Homicidal, Suicidal, threat to staff... and all critical care pts) @ -yes with severe comorbidities (Edward Denton) Reevaluation #5: Differential Weakness: Hypoglycemia, shock, sepsis, hyponatremia, anemia, infection, [place], ETOH, adverse medicine reaction, overdose, stroke, this is not meant to be an all-inclusive list. (Edward Denton) - Consultations Consultation #1: Poke with [facility] who agrees to admit this patient (Edward Denton) Medical Decision Making <Mel Haines - Last Filed: 05/25/23 16:16> - Lab Data Result diagrams: 05/31/23 06:34 05/31/23 06:34 - Radiology Data Radiology results: report reviewed (Chest x-ray is negative for acute disease), image reviewed <Edward Denton - Last Filed: 06/03/23 15:55> - Medical Decision Making I performed the quick note portion of this chart. Electronically signed by Mel Haines PA-C (Mel Haines) 63 male to the ER for evaluation patient presents today for evaluation of severe weakness patient will be admitted for severe renal failure dehydration IV hydration and urology to evaluate regarding cancer (Edward Denton) - Lab Data Lab Results 05/25/23 05/25/23 05/25/23 Range/Units 17:08 17:08 17:08 WBC 13.1 H (3.8-10.6) k/uL RBC 4.81 (4.30-5.90) m/uL Hgb 11.4 L (13.0-17.5) gm/dL Hct 36.9 L (39.0-53.0) % MCV 76.6 L (80.0-100.0) fL MCH 23.7 L (25.0-35.0) pg MCHC 31.0 (31.0-37.0) g/dL RDW 14.2 (11.5-15.5) % Plt Count 284 (150-450) k/uL MPV 8.1 Microcytosis Slight PT 10.0 (10.0-12.5) sec INR 0.9 (<1.2) APTT 29.2 (22.0-30.0) sec Sodium 135 L (137-145) mmol/L Potassium 5.5 H (3.5-5.1) mmol/L Chloride 102 (98-107) mmol/L Carbon Dioxide 15 L (22-30) mmol/L Anion Gap 18 mmol/L BUN 49 H (9-20) mg/dL Creatinine 6.82 H (0.66-1.25) mg/dL Est GFR (CKD-EPI)AfAm 9 (>60 ml/min/1.73 sqM) Est GFR (CKD-EPI)NonAf 8 (>60 ml/min/1.73 sqM) Glucose 97 (74-99) mg/dL Calcium 9.6 (8.4-10.2) mg/dL Total Bilirubin 0.6 (0.2-1.3) mg/dL AST 56 (17-59) U/L ALT 55 H (4-49) U/L Alkaline Phosphatase 150 H (38-126) U/L Troponin I (0.000-0.034) ng/mL Total Protein 7.0 (6.3-8.2) g/dL Albumin 4.2 (3.5-5.0) g/dL 05/25/23 Range/Units 17:12 WBC (3.8-10.6) k/uL RBC (4.30-5.90) m/uL Hgb (13.0-17.5) gm/dL Hct (39.0-53.0) % MCV (80.0-100.0) fL MCH (25.0-35.0) pg MCHC (31.0-37.0) g/dL RDW (11.5-15.5) % Plt Count (150-450) k/uL MPV Microcytosis PT (10.0-12.5) sec INR (<1.2) APTT (22.0-30.0) sec Sodium (137-145) mmol/L Potassium (3.5-5.1) mmol/L Chloride (98-107) mmol/L Carbon Dioxide (22-30) mmol/L Anion Gap mmol/L BUN (9-20) mg/dL Creatinine (0.66-1.25) mg/dL Est GFR (CKD-EPI)AfAm (>60 ml/min/1.73 sqM) Est GFR (CKD-EPI)NonAf (>60 ml/min/1.73 sqM) Glucose (74-99) mg/dL Calcium (8.4-10.2) mg/dL Total Bilirubin (0.2-1.3) mg/dL AST (17-59) U/L ALT (4-49) U/L Alkaline Phosphatase (38-126) U/L Troponin I <0.012 (0.000-0.034) ng/mL Total Protein (6.3-8.2) g/dL Albumin (3.5-5.0) g/dL Disposition <Mel Haines - Last Filed: 05/25/23 16:16> Is patient prescribed a controlled substance at d/c from ED?: No Time of Disposition: 20:30 <Edward Denton - Last Filed: 06/03/23 15:55> Clinical Impression: Acute exacerbation of chronic obstructive pulmonary disease, Bladder mass, Bladder cancer, Acute renal failure, Dehydration, Hypertension Disposition: ADMITTED IP TO THIS HOSP Condition: Serious
[2023-05-25 17:33] LABS: HCT 36.9 % (39.0-53.0); HGB 11.4 gm/dL (13.0-17.5); MCH 23.7 pg (25.0-35.0); MCV 76.6 fL (80.0-100.0); Mean Platelet Volume 8.1; Microcytosis Slight; Platelet Count 284 k/uL (150-450); RBC 4.81 m/uL (4.30-5.90); RDW 14.2 % (11.5-15.5); WBC 13.1 k/uL (3.8-10.6)
[2023-05-25 17:41] LABS: INR 0.9 (<1.2); Partial Thromboplastin Time 29.2 sec (22.0-30.0)
[2023-05-25 17:42] LABS: ALT 55 U/L (4-49); AST 56 U/L (17-59); African American GFR (CKD) 9 (>60 ml/min/1.73 sqM); Albumin 4.2 g/dL (3.5-5.0); Alkaline Phosphatase 150 U/L (38-126); Anion Gap 18 mmol/L; Blood Urea Nitrogen 49 mg/dL (9-20); Calcium 9.6 mg/dL (8.4-10.2); Carbon Dioxide 15 mmol/L (22-30); Chloride 102 mmol/L (98-107); Glucose 97 mg/dL (74-99); Non-African American GFR(CKD) 8 (>60 ml/min/1.73 sqM); Potassium 5.5 mmol/L (3.5-5.1); Sodium 135 mmol/L (137-145); Total Bilirubin 0.6 mg/dL (0.2-1.3)
[2023-05-25] MEDS: SODIUM CHLORIDE 0.9% 1,000 ML IV SCH ×2 (19:28→22:56)
[2023-05-25] MEDS: diphenhydrAMINE 50 MG/ML 1 ML VIAL IVP STA (19:28)
[2023-05-25] MEDS: methylPREDNISolone SOD SUCCI 125 MG/2 ML VIAL IV STA (19:28)
[2023-05-25] MEDS: FAMOTIDINE 20 MG/2 ML VIAL IV STA (19:28)
[2023-05-25] MEDS: SODIUM CHLORIDE 0.9% 500 ML 500 ML IV STA ×2 (19:29→21:25)
--- NOTE | 2023-05-25 19:42 | XR ---
EXAMINATION TYPE: XR chest 2V DATE OF EXAM: 05/25/2023 7:12 PM CLINICAL INDICATION:Male, 63 years old with history of dyspnea; MERGED WITH [facility] COMPARISON: 05/25/2023. TECHNIQUE: XR chest 2V Frontal and lateral views of the chest. FINDINGS: Lungs/Pleura: Prominent interstitial lung markings are seen scattered throughout the lungs with susana ening of the diaphragm and increased lucency of the lung apices. No evidence of focal consolidation, pneumothorax or pleural effusion. Pulmonary vascularity: Unremarkable. Heart/mediastinum: Cardiomediastinal silhouette is unremarkable. Musculoskeletal: No acute osseous pathology. Other findings: None IMPRESSION: 1. No acute cardiopulmonary disease process. 2. COPD changes.
[2023-05-25] MEDS ORDERED: MORPHINE SULFATE 4 MG/ML SYRINGE IVP PRN (20:37)
[2023-05-25] MEDS ORDERED: NALOXONE 0.4 MG/ML 1 ML VIAL IV PRN (20:38)
[2023-05-25] MEDS ORDERED: ONDANSETRON 4 MG/2 ML VIAL IVP PRN (20:38)
[2023-05-25] MEDS ORDERED: HEPARIN SODIUM 1,000 UN/ML (10ML VL) IV PRN (20:41)
[2023-05-25] MEDS: MORPHINE SULFATE 4 MG/ML SYRINGE IVP STA (21:23)
[2023-05-25] MEDS: ONDANSETRON 4 MG/2 ML VIAL IVP STA (21:24)
[2023-05-25] MEDS: hydrALAZINE HCL 20 MG/ML 1 ML VIAL IVP STA (21:24)
[2023-05-25] MEDS: SODIUM CHLORIDE 0.9% 2,000 ML IV STA (21:25)
[2023-05-25] MEDS: IPRATROPIUM-ALBUTEROL 3 ML NEB INHALATION STA (22:01)
[2023-05-25] MEDS: HEPARIN SODIUM 1,000 UN/ML (10ML VL) IV ONE (22:51)
[2023-05-25] MEDS: HEPARIN SOD,PORK IN 0.45% NACL 25,000 UNIT in 0.45% NACL 1 250ML.BAG IV SCH (22:52)
[2023-05-26] MEDS: hydrALAZINE HCL 20 MG/ML 1 ML VIAL IVP STA (02:44)
[2023-05-26] MEDS: HYDROcodone/APAP 10-325MG 1 EACH TAB PO PRN (05:59)
--- NOTE | 2023-05-26 08:08 | NM ---
EXAMINATION TYPE: NM pul vent and perfuse DATE OF EXAM: 05/26/2023 CLINICAL INDICATION: Male, 63 years old with history of PE; dyspnea. Comparison: Chest x-ray one day earlier TECHNIQUE: Utilizing inhalation of 67.0 mCi Tc 99m DTPA aerosol and intravenous injection of 5.3 mCi of Tc 99m MAA, ventilation and perfusion images are acquired post injection in multiple projections. FINDINGS: Small matching defects bilaterally. There is no evidence of mismatched defects. IMPRESSION: Low scintigraphic evidence for acute pulmonary embolism.
[2023-05-26] MEDS: amLODIPine 5 MG TAB PO SCH (09:39)
[2023-05-26 10:28] LABS: Basophils # (A) 0.02 X 10*3/uL (0.00-0.10); Basophils % (A) 0.2 %; Eosinophils # (A) 0 X 10*3/uL (0.04-0.35); Eosinophils % (A) 0 %; HCT 31.8 % (39.6-50.0); HGB 9.7 g/dL (13.0-17.0); Lymphocytes # (A) 0.31 X 10*3/uL (0.90-5.00); Lymphocytes % (A) 3.4 %; MCH 23.3 pg (27.0-32.0); MCHC 30.5 g/dL (32.0-37.0); MCV 76.3 FL (80.0-97.0); Mean Platelet Volume 10.9 FL (9.5-12.2); Monocytes # (A) 0.04 X 10*3/uL (0.20-1.00); Monocytes % (A) 0.4 %; NRBC Per 100 WBC 0 X 10*3/uL (0.00-0.01); Neutrophils # (A) 8.58 X 10*3/uL (1.80-7.70); Neutrophils % (A) 95.3 %; Platelet Count 263 X 10*3/uL (140-440); RBC 4.17 X 10*6/uL (4.40-5.60); RDW 14.6 % (11.5-14.5); WBC 9.01 X 10*3/uL (4.50-10.00)
[2023-05-26 11:51] LABS: Magnesium 2.1 mg/dL (1.5-2.4)
[2023-05-26 12:01] LABS: ALT 47 U/L (10-49); AST 35 U/L (14-35); Albumin 3.5 g/dL (3.8-4.9); Albumin/Globulin Ratio 1.46 Ratio (1.60-3.17); Alkaline Phosphatase 138 U/L (41-126); BUN/Creat Ratio 7.76 Ratio (12.00-20.00); Blood Urea Nitrogen 48.9 mg/dL (9.0-27.0); Calcium 8.8 mg/dL (8.7-10.3); Carbon Dioxide 13.6 mmol/L (21.6-31.8); Chloride 104 mmol/L (96-109); Globulin 2.4 g/dL (1.6-3.3); Glucose 202 mg/dL (70-110); Potassium 5.4 mmol/L (3.5-5.5); Sodium 136 mmol/L (135-145); Total Bilirubin <0.2 mg/dL (0.3-1.2); Total Protein 5.9 g/dL (6.2-8.2)
[2023-05-26] MEDS: hydrALAZINE HCL 20 MG/ML 1 ML VIAL IVP PRN (14:18)
[2023-05-26 14:34] LABS: Appearance,Urine Clear (Clear); Bacteria,Urine Rare /hpf; Bilirubin,Urine Negative (Negative); Blood,Urine Large (Negative); Color,Urine Colorless; Glucose,Urine (UA) Negative (Negative); Ketones,Urine Negative (Negative); Leukocyte Esterase,Urine Negative (Negative); Mucus,Urine Rare /hpf; Nitrite,Urine Negative (Negative); Protein,Urine Negative (Negative); RBC,Urine >182 /hpf (0-5); Specific Gravity,Urine 1.009 (1.001-1.035); Squamous Epithelial Cell,Urine <1 /hpf (0-4); Urobilinogen,Urine <2.0 mg/dL (<2.0); WBC,Urine 4 /hpf (0-5)
--- NOTE | 2023-05-26 16:19 | P.CNPUL ---
History of Present Illness Consult date: 05/26/23 Requesting physician: Paulo Velasquez Reason for consult: dyspnea, COPD Chief complaint: Shortness of breath History of present illness: This is a 63-year-old male patient with a history of bladder mass and left hydronephrosis. He had undergone a TURP and attempted left-sided stent insertion by urology on February 06, 2023. CAT scan of the chest abdomen pelvis from April 2023 revealed findings of progression of disease with left lateral bladder wall eccentric thickening with partial obstruction of left ureter and mild left hydronephrosis. New segment 3 liver lesion concerning metastatic disease. Right lower lobe and increasing size of the left lower lobe pulmonary nodules. Increased retroperitoneal lymph node at the level of the left kidney and left pelvis at sidewall nodes. Indeterminate right inferior pubic ramus 4 mm sclerotic focus. Follow-up imaging for osseous metastatic disease. He had undergone his first treatment for the bladder cancer on May 23, 2023. Yest erday he was seen by Dr. Hankins who referred him here for CAT scan to rule out pulmonary embolism due to his complaints of shortness of breath. Ever, he was find to have significant elevation in his creatinine at 6.82. He did undergo ventilation/perfusion study instead revealed low evidence for pulmonary embolism. He is currently on a heparin drip. X-ray revealed no acute cardiopulmonary process. Evidence of COPD. White count 9.0. Hemoglobin 9.7. Platelets 263. Sodium 136. Potassium 5.4. Bicarb 14. BUN 49. Creatinine 6.3. Glucose 202. Urinalysis with large blood, greater than 182 RBCs. Viral screen negative. The patient was a heavy smoker and drinker for over 40 years however quit smoking and drinking in January 2023. He is seen today in consultation on the regular medical floor. He is currently resting in bed. Awake and alert in no acute distress. He is quite anxious and nervous. He is somewhat of a poor historian. He states he had been taking a lot of ibuprofen due to the pain in his bladder area and down his left leg. Review of Systems REVIEW OF SYSTEMS: CONSTITUTIONAL: Denies any recent significant weight loss or weight gain. EYES: Denies change in vision. EARS, NOSE, MOUTH, THROAT: Denies headaches, denies sore throat. CARDIOVASCULAR: Denies chest pain, palpitations or syncopal episodes. RESPIRATORY: Positive for shortness of breath, no cough, congestion or hemoptysis. GASTROINTESTINAL: Denies change in appetite, denies abdominal pain GENITOURINARY: Positive for hematuria, denies infections. MUSKULOSKELETAL: Positive for pain down his left groin and leg, denies swelling. INTEGUMENTARY: Denies rash, denies eczema. NEUROLOGICAL: Denies recent memory loss, no recent seizure activity. PSYCHIATRIC: Denies anxiety, denies depression. HEMATOLOGIC/LYMPHATIC: Denies anemia, denies enlarged lymph nodes. 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 Past Anesthesia/Blood Transfusion Reactions: No Reported Reaction Past Psychological History: No Psychological Hx Reported Smoking Status: Former smoker Past Alcohol Use History: Occasional Additional Past Alcohol Use History / Comment(s): quit smoking january 2023, smoked on/off for 20 years. Past Drug Use History: None Reported - Past Family History Father Family Medical History: Cancer Additional Family Medical History / Comment(s): lung cancer, smoker Medications and Allergies Home Medications Medication Instructions Recorded Confirmed Type HYDROcodone/APAP 10-325MG [[place] 1 tab PO Q4HR PRN 3 Days #18 tab 05/15/23 05/25/23 Rx 10-325] Ondansetron [Zofran] 4 mg PO Q4H PRN 05/25/23 05/25/23 History amLODIPine [Norvasc] 5 mg PO DAILY 05/25/23 05/25/23 History Allergies Allergy/AdvReac Type Severity Reaction Status Date / Time Iodinated Contrast Media Allergy Neck Verified 05/25/23 22:49 swelling Physical Exam Vitals: Vital Signs Temp Pulse Pulse Pulse Resp BP BP 05/26/23 12:40 97.7 F 88 20 200/99 05/26/23 08:28 97.7 F 86 18 181/96 05/26/23 03:59 96 18 05/26/23 01:40 97.1 F L 102 H 20 05/26/23 01:00 70 13 163/101 05/26/23 00:30 81 13 176/98 05/26/23 00:00 72 15 173/105 05/25/23 23:30 80 19 180/100 05/25/23 23:01 88 22 191/99 05/25/23 22:15 81 05/25/23 22:03 80 05/25/23 21:23 94 20 187/93 05/25/23 19:37 85 20 188/119 05/25/23 16:10 97.7 F 70 18 189/102 BP Pulse Ox 05/26/23 12:40 195/95 95 05/26/23 08:28 166/92 95 05/26/23 03:59 173/80 98 05/26/23 01:40 197/92 97 05/26/23 01:00 95 05/26/23 00:30 97 05/26/23 00:00 94 L 05/25/23 23:30 95 05/25/23 23:01 95 05/25/23 22:15 05/25/23 22:03 05/25/23 21:23 95 05/25/23 19:37 98 05/25/23 16:10 97 Intake and Output 05/26/23 05/26/23 05/26/23 06:59 14:59 22:59 Intake Total 86.532 Output Total 400 100 Balance -313.468 -100 Intake: Intake, IV Titration 86.532 Amount Heparin Sod,Pork in 0.45% 86.532 NaCl 25,000 unit In 0.45 % NaCl 1 250ml.bag @ 18 UNITS/KG/HR 11.512 mls/hr IV .[id number] [facility] Rx#: [id number] Output: Urine 400 100 Other: Voiding Method Urinal Toilet # Voids 1 Weight 63.957 kg 63.957 kg GENERAL EXAM: Alert, anxious, thin 63-year-old male, unkept, on room air, comfortable in no apparent distress. HEAD: Normocephalic. EYES: Normal reaction of pupils, equal size. NOSE: Clear with pink turbinates. THROAT: No erythema or exudates. NECK: No masses, no JVD. CHEST: No chest wall deformity. LUNGS: Equal air entry with no crackles, wheeze, rhonchi or dullness. CVS: S1 and S2 normal with no audible murmur, regular rhythm. ABDOMEN: No hepatosplenomegaly, normal bowel sounds, no guarding or rigidity. SPINE: No scoliosis or deformity SKIN: No rashes CENTRAL NERVOUS SYSTEM: No focal deficits, tone is normal in all 4 extremities. EXTREMITIES: There is no peripheral edema. No clubbing, no cyanosis. Peripheral pulses are intact. Results - Laboratory Findings CBC and BMP: 05/26/23 05:05 05/26/23 05:05 PT/INR, D-dimer PT 10.0 sec (10.0-12.5) 05/25/23 17:08 INR 0.9 (<1.2) 05/25/23 17:08 Abnormal lab findings: Abnormal Labs 05/25/23 05/25/23 05/25/23 17:08 17:08 21:40 WBC 13.1 H RBC Hgb 11.4 L Hct 36.9 L MCV 76.6 L MCH 23.7 L MCHC RDW Immature Gran # Neutrophils # Lymphocytes # Monocytes # Eosinophils # APTT Sodium 135 L Potassium 5.5 H Carbon Dioxide 15 L Anion Gap BUN 49 H Creatinine 6.82 H Est GFR (CKD-EPI) BUN/Creatinine Ratio Glucose Total Bilirubin ALT 55 H Alkaline Phosphatase 150 H Creatine Kinase 41 L Total Protein Albumin Albumin/Globulin Ratio Urine Blood Urine RBC Urine Bacteria Urine Mucus 05/26/23 05/26/23 05/26/23 05:05 05:05 05:05 WBC RBC 4.17 L Hgb 9.7 L Hct 31.8 L MCV 76.3 L MCH 23.3 L MCHC 30.5 L RDW 14.6 H Immature Gran # 0.06 H Neutrophils # 8.58 H Lymphocytes # 0.31 L Monocytes # 0.04 L Eosinophils # 0 L APTT 82.1 H Sodium Potassium Carbon Dioxide 13.6 L Anion Gap 18.40 H BUN 48.9 H Creatinine 6.3 H Est GFR (CKD-EPI) 9 L BUN/Creatinine Ratio 7.76 L Glucose 202 H Total Bilirubin <0.2 L ALT Alkaline Phosphatase 138 H Creatine Kinase Total Protein 5.9 L Albumin 3.5 L Albumin/Globulin Ratio 1.46 L Urine Blood Urine RBC Urine Bacteria Urine Mucus 05/26/23 05/26/23 12:14 13:09 WBC RBC Hgb Hct MCV MCH MCHC RDW Immature Gran # Neutrophils # Lymphocytes # Monocytes # Eosinophils # APTT 56.4 H Sodium Potassium Carbon Dioxide Anion Gap BUN Creatinine Est GFR (CKD-EPI) BUN/Creatinine Ratio Glucose Total Bilirubin ALT Alkaline Phosphatase Creatine Kinase Total Protein Albumin Albumin/Globulin Ratio Urine Blood Large H Urine RBC >182 H Urine Bacteria Rare H Urine Mucus Rare H - Diagnostic Findings Chest x-ray: image reviewed Assessment and Plan Assessment: Shortness of breath possibly related to an acute exacerbation of chronic obstructive pulmonary disease. Chest x-ray shows no acute pulmonary process. The patient is also quite anxious and hypertensive. VQ scan revealed low probability for pulmonary embolism Acute kidney injury, presenting creatinine greater than 6.0. Due to the patient's bladder and left lower extremity pain he had been utilizing increased amount of ibuprofen Received first treatment for bladder cancer on 05/23/2023. Recent CT scan reveals findings of progression of disease with left lateral bladder wall eccentric thickening with partial obstruction of the left ureteral ureter and mild left hydronephrosis. Hydronephrosis is mildly progressed since January 2023. New segment 3 liver lesion concerning metastatic disease. Right lower lobe and increasing size of left lower lobe pulmonary nodules. Increase size of r etroperitoneal lymph node at the level of the left kidney and left pelvic sidewall nodes. 4 mm sclerotic focus of the right inferior pubic ramus possible CS metastatic disease Former heavy smoker quit in January 2023 Former heavy drinker quit in January 2023 Anxiety Hypertension Plan: The patient was seen and evaluated VQ scan, labs and medications reviewed Continue DuoNeb ventilations, Symbicort, Solu-Medrol Consider discontinuing heparin drip Nephrology consult Medical oncology consult Ultrasound of the renals and bladder pending We will continue to follow and make further recommendations based on his clinical status I have personally seen and examined the patient, performed the documentation and the assessment and plan as written. Number of minutes spent on the visit: 20.
[2023-05-26] MEDS: methylPREDNISolone SOD SUCCI 40 MG/ML 1 ML VIAL IV SCH (16:21)
[2023-05-26 17:22] LABS: Uric Acid 6.2 mg/dL (3.5-8.5)
--- NOTE | 2023-05-26 17:31 | CT ---
EXAMINATION TYPE: CT chest wo con CT DLP: 662.50 mGycm, Automated exposure control for dose reduction was used. DATE OF EXAM: 05/26/2023 4:49 PM COMPARISON: 04/10/2023 CLINICAL INDICATION:Male, 63 years old with history of worsening SOB, r/o pneumonitis r/t immunothera py; PHH, worsening SOB, r/o pneumonitis r/t immunotherapy. HIGH RESOLUTION TECHNIQUE: Multiple axial images were obtained through the chest. Sagittal and coronal reformats were created for review. Contrast used: mL of (None if empty) Oral contrast used: (None if empty) FINDINGS: LUNGS/ PLEURA: Mild paraseptal and centrilobular emphysema changes. New trace bilateral pleural effus ions. No focal consolidation or pneumothorax. New intralobular thickening new from 04/10/2023. New Scattered pulmonary nodules are present throughout the lungs which are not seen on 04/10/2023. Exam ple includes right upper lung 5 mm series 4 image 78, left upper lung 5 mm series 4 image 103 and man y others there are greater than 20 pulmonary nodules. There may be minimal trace airspace opacities in the lung bases right greater left. AIRWAY: Mild bronchial wall dilation most proximal lung bases. There is mild wall thickening also pre sent. Layering debris within the distal trachea. HEART: Size within normal limits. Scattered atherosclerosis of the coronary arteries. MEDIASTINUM: No gross evidence of adenopathy. VASCULATURE: No aortic aneurysm. MUSCULOSKELETAL: No acute osseous abnormalities SOFT TISSUES/LYMPH NODES: Unremarkable. LOWER NECK: No significant findings. UPPER ABDOMEN: No significant findings. IMPRESSION: 1. Minimal airspace opacities in lung bases, correlate for infection. 2. Trace bilateral pleural effusions and interlobular septal thickening correlate with serum BNP. 3. No evidence for pulmonary fibrosis.. 4. Scattered new pulmonary nodules from 04/10/2023 (greater than 20) correlate for infectious/inflamma tory process such as embolic phenomenon.. Short-term follow-up recommended to ensure resolution of th bryce pulmonary nodules. Correlation with history of malignancy should be also performed.
--- NOTE | 2023-05-26 19:10 | P.NPCON ---
History of Present Illness - Reason for Consult Consult date: 05/26/23 - History of Present Illness Patient is a 63-year-old male presented to ER with chief complaint of dyspnea. Patient was sent here by Dr. Hankins for CT to rule out PE. Patient's first treatment was 05-23-2023 for bladder cancer. He states he has chronic pain and has been taking naproxen three tabs every four hours for multiple weeks as he was also taking tramadol which was not controlling his pain. He denies any urinary symptoms and has been urinating well. His shortness of breath is better today on exam. CAT scan of the chest abdomen pelvis from April 2023 revealed findings of progression of disease with left lateral bladder wall eccentric thickening with partial obstruction of left ureter and mild left hydronephrosis. VS stable. HEENT: No JVD. HEART: regular rate and rhythm. Abdomen: soft, non-tender. Ext: No edema. 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 Past Anesthesia/Blood Transfusion Reactions: No Reported Reaction Past Psychological History: No Psychological Hx Reported Smoking Status: Former smoker Past Alcohol Use History: Occasional Additional Past Alcohol Use History / Comment(s): quit smoking january 2023, smoked on/off for 20 years. Past Drug Use History: None Reported - Past Family History Father Family Medical History: Cancer Additional Family Medical History / Comment(s): lung cancer, smoker Medications and Allergies Home Medications Medication Instructions Recorded Confirmed Type HYDROcodone/APAP 10-325MG [[place] 1 tab PO Q4HR PRN 3 Days #18 tab 05/15/23 05/25/23 Rx 10-325] Ondansetron [Zofran] 4 mg PO Q4H PRN 05/25/23 05/25/23 History amLODIPine [Norvasc] 5 mg PO DAILY 05/25/23 05/25/23 History Allergies Allergy/AdvReac Type Severity Reaction Status Date / Time Iodinated Contrast Media Allergy Neck Verified 05/25/23 22:49 swelling Physical Exam Vitals: Vital Signs Temp Pulse Pulse Pulse Resp BP BP 05/26/23 08:28 97.7 F 86 18 181/96 05/26/23 03:59 96 18 05/26/23 01:40 97.1 F L 102 H 20 05/26/23 01:00 70 13 163/101 05/26/23 00:30 81 13 176/98 05/26/23 00:00 72 15 173/105 05/25/23 23:30 80 19 180/100 05/25/23 23:01 88 22 191/99 05/25/23 22:15 81 05/25/23 22:03 80 05/25/23 21:23 94 20 187/93 05/25/23 19:37 85 20 188/119 05/25/23 16:10 97.7 F 70 18 189/102 BP Pulse Ox 05/26/23 08:28 166/92 95 05/26/23 03:59 173/80 98 05/26/23 01:40 197/92 97 05/26/23 01:00 95 05/26/23 00:30 97 05/26/23 00:00 94 L 05/25/23 23:30 95 05/25/23 23:01 95 05/25/23 22:15 05/25/23 22:03 05/25/23 21:23 95 05/25/23 19:37 98 05/25/23 16:10 97 Intake and Output 05/25/23 05/26/23 05/26/23 22:59 06:59 14:59 Intake Total 86.532 Output Total 400 100 Balance -313.468 -100 Intake: Intake, IV Titration 86.532 Amount Heparin Sod,Pork in 0.45% 86.532 NaCl 25,000 unit In 0.45 % NaCl 1 250ml.bag @ 18 UNITS/KG/HR 11.512 mls/hr IV .[id number] [facility] Rx#: [id number] Output: Urine 400 100 Other: Voiding Method Urinal Toilet # Voids 1 Weight 63.957 kg 63.957 kg Results - Lab Results Most recent lab results Calcium 8.8 mg/dL (8.7-10.3) 05/26/23 05:05 Phosphorus 5.0 mg/dL (2.4-5.1) 05/26/23 05:05 Magnesium 2.1 mg/dL (1.5-2.4) 05/26/23 05:05 05/26/23 05:05 05/26/23 05:05 Assessment and Plan Plan: Assessment: 1. Non-oliguric ARNALDO, likely ATN from chronic NSAID use and rule out obstructive process. Baseline creatinine 0.9, presented 6.8-->6.3. 2. Bladder Cancer currently undergoing chemotherapy. 3. Metabolic Acidosis 4. COPD Exacerbation-Pulmonology following. V/Q low probability for PE Plan: Check UA, CPK, PVR, strict I/O's Renal US ordered to rule out obstructive process, mild hydronephrosis on previous CT Monitor bicarb level, may need bicarb drip if continues to worsen. No uremic symptoms to need HD at this time Daily BMP
[2023-05-26] MEDS: SYMBICORT 160-4.5 MCG INHALER INHALATION SCH (20:14)
[2023-05-26] MEDS: IPRATROPIUM-ALBUTEROL 3 ML NEB INHALATION PRN (20:14)
--- NOTE | 2023-05-26 20:36 | US ---
EXAMINATION TYPE: US renals and bladder DATE OF EXAM: 05/26/2023 COMPARISON: CT 05/15/2023. CLINICAL INDICATION: Male, 63 years old with history of acute kidney injury/obstructive uropathy; HX bilat hydro L>R, bladder wall thickening EXAM MEASUREMENTS: Right Kidney: 11.9x5.5x5.8 cm Left Kidney: 11.8x5.5x5.8 cm Right Kidney: mild hydro Left Kidney: moderate hydro, cystic area noted at the superior pole measuring: Bladder: left sided wall thickening measuring up to 3cm, small anterior diverticulum measuring 1.5x1. 2cm Bilateral Jets seen: Right jet seen No nephrolithiasis is seen. The urinary bladder is anechoic. right ureteral jet seen. exam limited by patients labored breathing creating motion artifact, patient inability to tolerate de ep inspiration of laying down for extended periods 1. IMPRESSION: 2. Moderate left and mild right hydronephrosis. Findings similar to 05/15/2023 CT given differences in technique. 3. Bladder wall mass as seen on prior CT.
--- NOTE | 2023-05-26 21:39 | P.HPIM ---
History of Present Illness H&P Date: 05/26/23 Chief Complaint: Shortness of breath 63-year-old male patient with a history of bladder mass and left hydronephrosis. He had undergone a TURP and attempted left-sided stent insertion by urology on February 06, 2023. CAT scan of the chest abdomen pelvis from April 2023 rev ealed findings of progression of disease with left lateral bladder wall eccentric thickening with partial obstruction of left ureter and mild left hydronephrosis. New segment 3 liver lesion concerning metastatic disease. Right lower lobe and increasing size of the left lower lobe pulmonary nodules. Increased retroperitoneal lymph node at the level of the left kidney and left pelvis at sidewall nodes. Indeterminate right inferior pubic ramus 4 mm sclerotic focus. Follow-up imaging for osseous metastatic disease. He had undergone his first treatment for the bladder cancer on May 23, 2023. Yesterday he was seen by Dr. Hankins who referred him here for CAT scan to rule out pulmonary embolism due to his complaints of shortness of breath. Ever, he was find to have significant elevation in his creatinine at 6.82. He did undergo ventilation/perfusion study instead revealed low evidence for pulmonary embolism. He is currently on a heparin drip. X-ray revealed no acute cardiopu lmonary process. Evidence of COPD. White count 9.0. Hemoglobin 9.7. Platelets 263. Sodium 136. Potassium 5.4. Bicarb 14. BUN 49. Creatinine 6.3. Glucose 202. Urinalysis with large blood, greater than 182 RBCs. Viral screen negative. The patient was a heavy smoker and drinker for over 40 years however quit smoking and drinking in January 2023. He is seen today in consultation on the regular medical floor. He is currently resting in bed. Awake and alert in no acute distress. He is quite anxious and nervous. He is somewhat of a poor historian. He states he had been taking a lot of ibuprofen due to the pain in his bladder area and down his left leg. Review of Systems REVIEW OF SYSTEMS: CONSTITUTIONAL: No fever, no malaise, no fatigue. HEENT: No recent visual problems or hearing problems. Denied any sore throat. CARDIOVASCULAR: No chest pain, orthopnea, PND, no palpitations, no syncope. PULMONARY: No shortness of breath, no cough, no hemoptysis. GASTROINTESTINAL: No diarrhea, no nausea, no vomiting, no abdominal pain. NEUROLOGICAL: No headaches, no weakness, no numbness. HEMATOLOGICAL: Denies any bleeding or petechiae. GENITOURINARY: Denies any burning micturition, frequency, or urgency. MUSCULOSKELETAL/RHEUMATOLOGICAL: Denies any joint pain, swelling, or any muscle pain. ENDOCRINE: Denies any polyuria or polydipsia. The rest of the 14-point review of systems is negative. 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 Past Anesthesia/Blood Transfusion Reactions: No Reported Reaction Past Psychological History: No Psychological Hx Reported Smoking Status: Former smoker Past Alcohol Use History: Occasional Additional Past Alcohol Use History / Comment(s): quit smoking january 2023, smoked on/off for 20 years. Past Drug Use History: None Reported - Past Family History Father Family Medical History: Cancer Additional Family Medical History / Comment(s): lung cancer, smoker Medications and Allergies Home Medications Medication Instructions Recorded Confirmed Type HYDROcodone/APAP 10-325MG [[place] 1 tab PO Q4HR PRN 3 Days #18 tab 05/15/23 05/25/23 Rx 10-325] Ondansetron [Zofran] 4 mg PO Q4H PRN 05/25/23 05/25/23 History amLODIPine [Norvasc] 5 mg PO DAILY 05/25/23 05/25/23 History Allergies Allergy/AdvReac Type Severity Reaction Status Date / Time Iodinated Contrast Media Allergy Neck Verified 05/25/23 22:49 swelling Physical Exam Vitals: Vital Signs Temp Pulse Pulse Pulse Resp BP BP 05/26/23 12:40 97.7 F 88 20 200/99 05/26/23 08:28 97.7 F 86 18 181/96 05/26/23 03:59 96 18 05/26/23 01:40 97.1 F L 102 H 20 05/26/23 01:00 70 13 163/101 05/26/23 00:30 81 13 176/98 05/26/23 00:00 72 15 173/105 05/25/23 23:30 80 19 180/100 05/25/23 23:01 88 22 191/99 05/25/23 22:15 81 05/25/23 22:03 80 05/25/23 21:23 94 20 187/93 05/25/23 19:37 85 20 188/119 05/25/23 16:10 97.7 F 70 18 189/102 BP Pulse Ox 05/26/23 12:40 195/95 95 05/26/23 08:28 166/92 95 05/26/23 03:59 173/80 98 05/26/23 01:40 197/92 97 05/26/23 01:00 95 05/26/23 00:30 97 05/26/23 00:00 94 L 05/25/23 23:30 95 05/25/23 23:01 95 05/25/23 22:15 05/25/23 22:03 05/25/23 21:23 95 05/25/23 19:37 98 05/25/23 16:10 97 Intake and Output 05/25/23 05/26/23 05/26/23 22:59 06:59 14:59 Intake Total 86.532 Output Total 400 100 Balance -313.468 -100 Intake: Intake, IV Titration 86.532 Amount Heparin Sod,Pork in 0.45% 86.532 NaCl 25,000 unit In 0.45 % NaCl 1 250ml.bag @ 18 UNITS/KG/HR 11.512 mls/hr IV .[id number] [facility] Rx#: [id number] Output: Urine 400 100 Other: Voiding Method Urinal Toilet # Voids 1 Weight 63.957 kg 63.957 kg 63.957 kg GENERAL EXAM: Alert, anxious, thin 63-year-old male, unkept, on room air, comfortable in no apparent distress. HEAD: Normocephalic. EYES: Normal reaction of pupils, equal size. NOSE: Clear with pink turbinates. THROAT: No erythema or exudates. NECK: No masses, no JVD. CHEST: No chest wall deformity. LUNGS: Equal air entry with no crackles, wheeze, rhonchi or dullness. CVS: S1 and S2 normal with no audible murmur, regular rhythm. ABDOMEN: No hepatosplenomegaly, normal bowel sounds, no guarding or rigidity. SPINE: No scoliosis or deformity SKIN: No rashes CENTRAL NERVOUS SYSTEM: No focal deficits, tone is normal in all 4 extremities. EXTREMITIES: There is no peripheral edema. No clubbing, no cyanosis. Peripheral pulses are intact. Results CBC & Chem 7: 05/26/23 05:05 05/26/23 05:05 Labs: Abnormal Lab Results - Last 24 Hours (Table) 05/25/23 05/25/23 05/25/23 Range/Units 17:08 17:08 21:40 WBC 13.1 H (3.8-10.6) k/uL RBC (4.40-5.60) X 10*6/uL Hgb 11.4 L (13.0-17.5) gm/dL Hct 36.9 L (39.0-53.0) % MCV 76.6 L (80.0-100.0) fL MCH 23.7 L (25.0-35.0) pg MCHC (32.0-37.0) g/dL RDW (11.5-14.5) % Immature Gran # (0.00-0.04) X 10*3/uL Neutrophils # (1.80-7.70) X 10*3/uL Lymphocytes # (0.90-5.00) X 10*3/uL Monocytes # (0.20-1.00) X 10*3/uL Eosinophils # (0.04-0.35) X 10*3/uL APTT (22.0-30.0) sec Sodium 135 L (137-145) mmol/L Potassium 5.5 H (3.5-5.1) mmol/L Carbon Dioxide 15 L (22-30) mmol/L Anion Gap (4.00-12.00) mmol/L BUN 49 H (9-20) mg/dL Creatinine 6.82 H (0.66-1.25) mg/dL Est GFR (CKD-EPI) (>=60) BUN/Creatinine Ratio (12.00-20.00) Ratio Glucose (70-110) mg/dL Total Bilirubin (0.3-1.2) mg/dL ALT 55 H (4-49) U/L Alkaline Phosphatase 150 H (38-126) U/L Creatine Kinase 41 L (55-170) U/L Total Protein (6.2-8.2) g/dL Albumin (3.8-4.9) g/dL Albumin/Globulin Ratio (1.60-3.17) Ratio 05/26/23 05/26/23 05/26/23 Range/Units 05:05 05:05 05:05 WBC (3.8-10.6) k/uL RBC 4.17 L (4.40-5.60) X 10*6/uL Hgb 9.7 L (13.0-17.5) gm/dL Hct 31.8 L (39.0-53.0) % MCV 76.3 L (80.0-100.0) fL MCH 23.3 L (25.0-35.0) pg MCHC 30.5 L (32.0-37.0) g/dL RDW 14.6 H (11.5-14.5) % Immature Gran # 0.06 H (0.00-0.04) X 10*3/uL Neutrophils # 8.58 H (1.80-7.70) X 10*3/uL Lymphocytes # 0.31 L (0.90-5.00) X 10*3/uL Monocytes # 0.04 L (0.20-1.00) X 10*3/uL Eosinophils # 0 L (0.04-0.35) X 10*3/uL APTT 82.1 H (22.0-30.0) sec Sodium (137-145) mmol/L Potassium (3.5-5.1) mmol/L Carbon Dioxide 13.6 L (22-30) mmol/L Anion Gap 18.40 H (4.00-12.00) mmol/L BUN 48.9 H (9-20) mg/dL Creatinine 6.3 H (0.66-1.25) mg/dL Est GFR (CKD-EPI) 9 L (>=60) BUN/Creatinine Ratio 7.76 L (12.00-20.00) Ratio Glucose 202 H (70-110) mg/dL Total Bilirubin <0.2 L (0.3-1.2) mg/dL ALT (4-49) U/L Alkaline Phosphatase 138 H (38-126) U/L Creatine Kinase (55-170) U/L Total Protein 5.9 L (6.2-8.2) g/dL Albumin 3.5 L (3.8-4.9) g/dL Albumin/Globulin Ratio 1.46 L (1.60-3.17) Ratio 05/26/23 Range/Units 12:14 WBC (3.8-10.6) k/uL RBC (4.40-5.60) X 10*6/uL Hgb (13.0-17.5) gm/dL Hct (39.0-53.0) % MCV (80.0-100.0) fL MCH (25.0-35.0) pg MCHC (32.0-37.0) g/dL RDW (11.5-14.5) % Immature Gran # (0.00-0.04) X 10*3/uL Neutrophils # (1.80-7.70) X 10*3/uL Lymphocytes # (0.90-5.00) X 10*3/uL Monocytes # (0.20-1.00) X 10*3/uL Eosinophils # (0.04-0.35) X 10*3/uL APTT 56.4 H (22.0-30.0) sec Sodium (137-145) mmol/L Potassium (3.5-5.1) mmol/L Carbon Dioxide (22-30) mmol/L Anion Gap (4.00-12.00) mmol/L BUN (9-20) mg/dL Creatinine (0.66-1.25) mg/dL Est GFR (CKD-EPI) (>=60) BUN/Creatinine Ratio (12.00-20.00) Ratio Glucose (70-110) mg/dL Total Bilirubin (0.3-1.2) mg/dL ALT (4-49) U/L Alkaline Phosphatase (38-126) U/L Creatine Kinase (55-170) U/L Total Protein (6.2-8.2) g/dL Albumin (3.8-4.9) g/dL Albumin/Globulin Ratio (1.60-3.17) Ratio Thrombosis Risk Factor Assmnt - Choose All That Apply Each Risk Factor Represents 2 Points: Age 61-74 years, Malignancy Other congenital or acquired thrombophilia - If yes, enter type in comment: No Thrombosis Risk Factor Assessment Total Risk Factor Score: 4 Thrombosis Risk Factor Assessment Level: Moderate Risk Assessment and Plan Assessment: 1. Acute exacerbation COPD -- Patient received IV Solu-Medrol 125 mg IV x 1 in ED; we will continue with 40 mg IV every 8 hours; DuoNeb nebulizer treatment; Symbicort inhaler 2. Dyspnea; rule out PE -- Patient has been placed on IV heparin and VQ scan is ordered by pulmonary service 3. Acute renal injury; creatinine at 6.3 upon admission -- Patient has been placed on IV fluid hydration; renal and bladder ultrasound is ordered and pending; will monitor strict LAUREN's, daily weights, renal function electrolytes; avoid nephrotoxins and hypotension -- Nephrology is consulted 4. Uncontrolled hypertension; patient takes Norvasc 5 mg daily which has been resumed; will order IV hydralazine 20 mg IV every 4 hours as needed; continue to monitor blood pressure closely and make adjustment in maintenance therapy " 5. History of bladder CA Received first treatment for bladder cancer on 05/23/2023. Recent CT scan reveals findings of progression of disease with left lateral bladder wall eccentric thickening with partial obstruction of the left ureteral ureter and mild left hydronephrosis. Hydronephrosis is mildly progressed since January 2023. New segment 3 liver lesion concerning metastatic disease. Right lower lobe and increasing size of left lower lobe pulmonary nodules. Increase size of retroperitoneal lymph node at the level of the left kidney and left pelvic sidewall nodes. 4 mm sclerotic focus of the right inferior pubic ramus possible CS metastatic disease -- Oncology consulted DVT prophylaxis; SCDs/IV heparin CODE STATUS; full code
[2023-05-26] MEDS: LACTULOSE 20 GM/30 ML CUP PO SCH (22:10)
[2023-05-27 09:58] LABS: HCT 30.7 % (39.6-50.0); HGB 9.6 g/dL (13.0-17.0); MCH 23.6 pg (27.0-32.0); MCHC 31.3 g/dL (32.0-37.0); MCV 75.4 FL (80.0-97.0); Mean Platelet Volume 10.8 FL (9.5-12.2); NRBC Per 100 WBC 0 X 10*3/uL (0.00-0.01); Platelet Count 331 X 10*3/uL (140-440); RBC 4.07 X 10*6/uL (4.40-5.60); RDW 15.3 % (11.5-14.5); WBC 21.26 X 10*3/uL (4.50-10.00)
--- NOTE | 2023-05-27 10:17 | P.CONS ---
History of Present Illness - Reason for Consult Consult date: 05/26/23 bladder cancer Requesting physician: Edward Denton - Chief Complaint SOB, weakness - History of Present Illness Mr. Jimenez is a 63-year-old gentleman with a significant history of urothelial carcinoma, COPD and nicotine dependence, 20 pack year smoker. He is a patient of Dr. Carlos Hankins. Starting in December 2022, he began having dysuria and progressive hematuria. This progressed to the point where he was having tonja blood. He presented to [facility] for additional management. CT urogram on 01/18/2023 noted thickening of the left lateral urinary bladder wall measuring 1.7 cm with noted stranding extending into the left pelvic sidewall and loss of fat plane between the prostate and urinary bladder. Prominent left external iliac lymph nodes measuring 1 cm and 2.2 cm were noted with subcentimeter left inguinal lymph nodes. CT of the chest noted no evidence of distant metastatic disease with discoid atelectasis/parenchymal scarring in the right lower lobe likely secondary to remote granulomatous disease. He underwent TURBT and attempted left-sided ureteral stent insertion on 02/06/2023. This visualized mildly enlarged prostate that was nonobstructive with a large papillary tumor involving the left trigone and extending along the left lateral wall. This was resected down to the muscle with an area of resection of 8 cm. Left ureteral orifice could not be identified for stent placement. Pathology of the resected bladder mass noted invasive high-grade papillary urothelial carcinoma invading the muscularis propria smooth muscle with lymphovascular invasion being present. CT chest/abdomen/pelvis with IV contrast performed on 04/10/2023 noted segment 3 liver lesion, left lower lobe pulmonary nodule, and bilateral inguinal lymphadenopathy that was suspicious for metastatic disease. Subsequent imaging with MRI of the abdomen with and without contrast at [facility] on 05/06/2023 did not reveal evidence of liver metastases, did note significant retroperitoneal lymphadenopathy along with 7mm pulmonary nodule concerning for metastatic disease His subsequent clinical course has been complicated by scrotal pain with ultr asound noting small hydroceles but no evidence of epididymitis or orchitis along with hypertension, which prevented him from proceeding with biopsy of the retroperitoneal lymph node seen on MRI of the abdomen. Due to concern for significant delay in treatment, systemic treatment was initiated with cycle 1 of pembrolizumab/enfortumab vedotin on 05/23/2023. At office f/u on 05/25/23 he was experinecing significant dyspnea with occasional chest discomfort on inspiration. Differential diagnosis with regards to his dyspnea includes pulmonary embolism, Keytruda induced pneumonitis, flash pulmonary edema from hypertension, or infection such as pneumonia. Patient was referred to the ED for further evaluation. Upon presentation chest x-ray revealed no acute cardiopulmonary disease processes with COPD changes. VQ scan was obtained due to ARNALDO. Creatinine 6.8, GFR 8. Creatinine on 05/15 was 1.45. VQ scan revealed low scintigraphic evidence for acute pulmonary embolism. Patient had been started on heparin drip. RSV, COVID, influenza negative. UA revealed hematuria. Bilirubin 0.6, AST 56, ALT 5 5, ALP 55. Troponin negative. WBC 13.1, hemoglobin 11.4, platelets 284,000. Patient has been started on Solu-Medrol 40 mg every 8. Pulmonology and nephrology consulted. At today's visit, breathing is labored. Pt c/o of SOB and persisting left groin pain. BP has been elevated, hydralazine IVP has been ordered. Pt is reporting he was experiencing hematuria prior to arrival but has since resolved. Denies fever chills, and n/v/d. Review of Systems 10 point ROS is negative except as stated in the HPI 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 Past Anesthesia/Blood Transfusion Reactions: No Reported Reaction Past Psychological History: No Psychological Hx Reported Smoking Status: Former smoker Past Alcohol Use History: Occasional Additional Past Alcohol Use History / Comment(s): quit smoking january 2023, smoked on/off for 20 years. Past Drug Use History: None Reported - Past Family History Father Family Medical History: Cancer Additional Family Medical History / Comment(s): lung cancer, smoker Medications and Allergies Home Medications Medication Instructions Recorded Confirmed Type HYDROcodone/APAP 10-325MG [[place] 1 tab PO Q4HR PRN 3 Days #18 tab 05/15/23 05/25/23 Rx 10-325] Ondansetron [Zofran] 4 mg PO Q4H PRN 05/25/23 05/25/23 History amLODIPine [Norvasc] 5 mg PO DAILY 05/25/23 05/25/23 History Allergies Allergy/AdvReac Type Severity Reaction Status Date / Time Iodinated Contrast Media Allergy Neck Verified 05/25/23 22:49 swelling Physical Exam Vitals: Vital Signs Temp Pulse Pulse Pulse Resp BP BP 05/26/23 08:28 97.7 F 86 18 181/96 05/26/23 03:59 96 18 05/26/23 01:40 97.1 F L 102 H 20 05/26/23 01:00 70 13 163/101 05/26/23 00:30 81 13 176/98 05/26/23 00:00 72 15 173/105 05/25/23 23:30 80 19 180/100 05/25/23 23:01 88 22 191/99 05/25/23 22:15 81 05/25/23 22:03 80 05/25/23 21:23 94 20 187/93 05/25/23 19:37 85 20 188/119 05/25/23 16:10 97.7 F 70 18 189/102 BP Pulse Ox 05/26/23 08:28 166/92 95 05/26/23 03:59 173/80 98 05/26/23 01:40 197/92 97 05/26/23 01:00 95 05/26/23 00:30 97 05/26/23 00:00 94 L 05/25/23 23:30 95 05/25/23 23:01 95 05/25/23 22:15 05/25/23 22:03 05/25/23 21:23 95 05/25/23 19:37 98 05/25/23 16:10 97 Intake and Output 05/25/23 05/26/23 05/26/23 22:59 06:59 14:59 Intake Total 86.532 Output Total 400 100 Balance -313.468 -100 Intake: Intake, IV Titration 86.532 Amount Heparin Sod,Pork in 0.45% 86.532 NaCl 25,000 unit In 0.45 % NaCl 1 250ml.bag @ 18 UNITS/KG/HR 11.512 mls/hr IV .[id number] [facility] Rx#: [id number] Output: Urine 400 100 Other: Voiding Method Urinal Toilet # Voids 1 Weight 63.957 kg 63.957 kg - Constitutional General appearance: mild distress, thin - EENT Eyes: anicteric sclerae, EOMI ENT: hearing grossly normal - Respiratory breathing labored Respiratory: right: CTA, left: rales (LLL) - Cardiovascular Rhythm: regular Heart sounds: normal: S1, S2 - Gastrointestinal General gastrointestinal: soft, no tenderness - Integumentary Integumentary: no cyanotic - Musculoskeletal Musculoskeletal: strength equal bilaterally - Psychiatric Psychiatric: A&O x's 3 Results CBC & Chem 7: 05/27/23 05:59 05/26/23 05:05 Labs: Abnormal Lab Results - Last 24 Hours (Table) 05/25/23 05/25/23 05/25/23 Range/Units 17:08 17:08 21:40 WBC 13.1 H (3.8-10.6) k/uL Hgb 11.4 L (13.0-17.5) gm/dL Hct 36.9 L (39.0-53.0) % MCV 76.6 L (80.0-100.0) fL MCH 23.7 L (25.0-35.0) pg APTT (22.0-30.0) sec Sodium 135 L (137-145) mmol/L Potassium 5.5 H (3.5-5.1) mmol/L Carbon Dioxide 15 L (22-30) mmol/L BUN 49 H (9-20) mg/dL Creatinine 6.82 H (0.66-1.25) mg/dL ALT 55 H (4-49) U/L Alkaline Phosphatase 150 H (38-126) U/L Creatine Kinase 41 L (55-170) U/L 05/26/23 Range/Units 05:05 WBC (3.8-10.6) k/uL Hgb (13.0-17.5) gm/dL Hct (39.0-53.0) % MCV (80.0-100.0) fL MCH (25.0-35.0) pg APTT 82.1 H (22.0-30.0) sec Sodium (137-145) mmol/L Potassium (3.5-5.1) mmol/L Carbon Dioxide (22-30) mmol/L BUN (9-20) mg/dL Creatinine (0.66-1.25) mg/dL ALT (4-49) U/L Alkaline Phosphatase (38-126) U/L Creatine Kinase (55-170) U/L Comments: VQ scan reviewed Chest x-ray: report reviewed Assessment and Plan (1) Acute exacerbation of chronic obstructive pulmonary disease Current Visit: Yes Status: Acute Priority: High Code(s): J44.1 - CHRONIC OBSTRUCTIVE PULMONARY DISEASE W (ACUTE) EXACERBATION SNOMED Code(s): 021906412 (2) Acute renal failure Current Visit: Yes Status: Acute Priority: High Code(s): N17.9 - ACUTE KIDNEY FAILURE, UNSPECIFIED SNOMED Code(s): 91588394 (3) Bladder cancer Current Visit: Yes Status: Acute Priority: High Code(s): C67.9 - MALIGNANT NEOPLASM OF BLADDER, UNSPECIFIED SNOMED Code(s): 774404081 (4) Shortness of breath Current Visit: Yes Status: Acute Priority: High Code(s): R06.02 - SHORTNESS OF BREATH SNOMED Code(s): 634744978 Plan: SOB: -Seen in clinic on 05/25/23, patient was experiencing significant dyspnea with occasional chest discomfort on inspiration that had been worsening over the last cpl days. Referred pt to ED for further evaluation, for concern of pulmonary embolism vs Keytruda induced pneumonitis vs infectious process. -Chest x-ray revealed no acute cardiopulmonary disease processes with COPD changes. VQ scan revealed low scintigraphic evidence for acute pulmonary embolism. Patient has been started on heparin drip. RSV, COVID, influenza negative. Leukocytosis noted at 13.1 upon admit. Pt afebrile, SPO2 98% on room air. Solu-Medrol 40 mg q8 has been started. -Will obtain high resolution CT chest for further evaluation to r/o pneumonitis -Pulmonology consulted ARNALDO: -Creatinine 6.8, GFR 8. Creatinine on 05/15 was 1.45. Creatinine mildly improved today at 6.3 -UA showing hematuria -Nephrology consulted Urothelial carcinoma: -Full history in HPI -Completed day 1 of cycle 1 of pembrolizumab/enfortumab vedotin on 05/23/2023 -Will likely have to hold day 8 of cycle 1, to allow adequate recovery time. W ill obtain high resolution CT chest to further evaluate for IO r/t pneumonitis. If this confirms pneumonitis, patient would need to be on a 4-6 week slow steroid taper and will also have to consider possibly changing treatment regimen -WBC 9.0, ANC 8,500, Hgb 9.7, plt 263,000 -Clinic f/u upon discharge will be scheduled
[2023-05-27] MEDS: ALPRAZolam 0.5 MG TAB PO PRN (10:57)
--- NOTE | 2023-05-27 11:27 | P.GSCN ---
History of Present Illness Consult date: 05/27/23 History of present illness: 63 yo male with known muscle invasive, metastatic bladder cancer sent to the hospital with dyspnea to r/o PE. the patient had a turbt last fall by Dr Bernardo identifying muscle invasive bladder cancer obscuring the left ureteral orifice causing hydronephrosis. He was found to be metastatic and has been under the care of Dr Ary Hankins. He has known left hydro due to his disease. He had an us yesterday identifying mod left hydro and minimal right hydro. We were asked to see the patient. The patients cr was 6.3 T[address] ua [address] scan 05/15/2023 identified progression of the bladder cancer intraluminally obscuring both ureteral orifices. The patient has not had a pulmonary embolus. Patient is anxious and with abdominal distention. Somewhat short of breath. He has had some hematuria. He does have some urgency. The urine does not look infected. He denies back pain. Review of Systems The patient is anxious and uncomfortable and not interested in doing review of systems ROS unobtainable: due to mental status 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 Past Anesthesia/Blood Transfusion Reactions: No Reported Reaction Past Psychological History: No Psychological Hx Reported Smoking Status: Former smoker Past Alcohol Use History: Occasional Additional Past Alcohol Use History / Comment(s): quit smoking january 2023, smoked on/off for 20 years. Past Drug Use History: None Reported - Past Family History Father Family Medical History: Cancer Additional Family Medical History / Comment(s): lung cancer, smoker Medications and Allergies Home Medications Medication Instructions Recorded Confirmed Type HYDROcodone/APAP 10-325MG [[place] 1 tab PO Q4HR PRN 3 Days #18 tab 05/15/23 05/25/23 Rx 10-325] Ondansetron [Zofran] 4 mg PO Q4H PRN 05/25/23 05/25/23 History amLODIPine [Norvasc] 5 mg PO DAILY 05/25/23 05/25/23 History Allergies Allergy/AdvReac Type Severity Reaction Status Date / Time Iodinated Contrast Media Allergy Neck Verified 05/25/23 22:49 swelling Surgical - Exam Vital Signs Temp Pulse Resp BP Pulse Ox 97.7 F 70 18 189/102 97 05/25/23 16:10 05/25/23 16:10 05/25/23 16:10 05/25/23 16:10 05/25/23 16:10 - General well developed, moderate distress, cachectic - Eyes PERRL - ENT no hearing loss - Respiratory Slightly short of breath normal expansion - Abdomen Consistent with ileus Abdomen: distended - Genitourinary normal penis with no external lesions, testicles present - Integumentary no rash, no growths - Neurologic normal coordination, normal sensation - Musculoskeletal normal posture - Psychiatric oriented to time, oriented to person, oriented to place, speech is normal Results - Labs 05/27/23 05:59 05/26/23 05:05 Abnormal Lab Results - Last 24 Hours (Table) 05/26/23 05/26/23 05/26/23 Range/Units 05:05 05:05 12:14 RBC 4.17 L (4.40-5.60) X 10*6/uL Hgb 9.7 L (13.0-17.0) g/dL Hct 31.8 L (39.6-50.0) % MCV 76.3 L (80.0-97.0) FL MCH 23.3 L (27.0-32.0) pg MCHC 30.5 L (32.0-37.0) g/dL RDW 14.6 H (11.5-14.5) % Immature Gran # 0.06 H (0.00-0.04) X 10*3/uL Neutrophils # 8.58 H (1.80-7.70) X 10*3/uL Lymphocytes # 0.31 L (0.90-5.00) X 10*3/uL Monocytes # 0.04 L (0.20-1.00) X 10*3/uL Eosinophils # 0 L (0.04-0.35) X 10*3/uL APTT 56.4 H (22.0-30.0) sec Carbon Dioxide 13.6 L (21.6-31.8) mmol/L Anion Gap 18.40 H (4.00-12.00) mmol/L BUN 48.9 H (9.0-27.0) mg/dL Creatinine 6.3 H (0.6-1.5) mg/dL Est GFR (CKD-EPI) 9 L (>=60) BUN/Creatinine Ratio 7.76 L (12.00-20.00) Ratio Glucose 202 H (70-110) mg/dL Total Bilirubin <0.2 L (0.3-1.2) mg/dL Alkaline Phosphatase 138 H (41-126) U/L Total Protein 5.9 L (6.2-8.2) g/dL Albumin 3.5 L (3.8-4.9) g/dL Albumin/Globulin Ratio 1.46 L (1.60-3.17) Ratio Urine Blood (Negative) Urine RBC (0-5) /hpf Urine Bacteria (None) /hpf Urine Mucus (None) /hpf 05/26/23 Range/Units 13:09 RBC (4.40-5.60) X 10*6/uL Hgb (13.0-17.0) g/dL Hct (39.6-50.0) % MCV (80.0-97.0) FL MCH (27.0-32.0) pg MCHC (32.0-37.0) g/dL RDW (11.5-14.5) % Immature Gran # (0.00-0.04) X 10*3/uL Neutrophils # (1.80-7.70) X 10*3/uL Lymphocytes # (0.90-5.00) X 10*3/uL Monocytes # (0.20-1.00) X 10*3/uL Eosinophils # (0.04-0.35) X 10*3/uL APTT (22.0-30.0) sec Carbon Dioxide (21.6-31.8) mmol/L Anion Gap (4.00-12.00) mmol/L BUN (9.0-27.0) mg/dL Creatinine (0.6-1.5) mg/dL Est GFR (CKD-EPI) (>=60) BUN/Creatinine Ratio (12.00-20.00) Ratio Glucose (70-110) mg/dL Total Bilirubin (0.3-1.2) mg/dL Alkaline Phosphatase (41-126) U/L Total Protein (6.2-8.2) g/dL Albumin (3.8-4.9) g/dL Albumin/Globulin Ratio (1.60-3.17) Ratio Urine Blood Large H (Negative) Urine RBC >182 H (0-5) /hpf Urine Bacteria Rare H (None) /hpf Urine Mucus Rare H (None) /hpf Diabetes panel 05/26/23 Range/Units 05:05 Sodium 136 (135-145) mmol/L Potassium 5.4 (3.5-5.5) mmol/L Chloride 104 (96-109) mmol/L Carbon Dioxide 13.6 L (21.6-31.8) mmol/L BUN 48.9 H (9.0-27.0) mg/dL Creatinine 6.3 H (0.6-1.5) mg/dL Glucose 202 H (70-110) mg/dL Calcium 8.8 (8.7-10.3) mg/dL AST 35 (14-35) U/L ALT 47 (10-49) U/L Alkaline Phosphatase 138 H (41-126) U/L Total Protein 5.9 L (6.2-8.2) g/dL Albumin 3.5 L (3.8-4.9) g/dL Calcium panel 05/26/23 Range/Units 05:05 Calcium 8.8 (8.7-10.3) mg/dL Phosphorus 5.0 (2.4-5.1) mg/dL Albumin 3.5 L (3.8-4.9) g/dL Pituitary panel 05/26/23 Range/Units 05:05 Sodium 136 (135-145) mmol/L Potassium 5.4 (3.5-5.5) mmol/L Chloride 104 (96-109) mmol/L Carbon Dioxide 13.6 L (21.6-31.8) mmol/L BUN 48.9 H (9.0-27.0) mg/dL Creatinine 6.3 H (0.6-1.5) mg/dL Glucose 202 H (70-110) mg/dL Calcium 8.8 (8.7-10.3) mg/dL Adrenal panel 05/26/23 Range/Units 05:05 Sodium 136 (135-145) mmol/L Potassium 5.4 (3.5-5.5) mmol/L Chloride 104 (96-109) mmol/L Carbon Dioxide 13.6 L (21.6-31.8) mmol/L BUN 48.9 H (9.0-27.0) mg/dL Creatinine 6.3 H (0.6-1.5) mg/dL Glucose 202 H (70-110) mg/dL Calcium 8.8 (8.7-10.3) mg/dL Total Bilirubin <0.2 L (0.3-1.2) mg/dL AST 35 (14-35) U/L ALT 47 (10-49) U/L Alkaline Phosphatase 138 H (41-126) U/L Total Protein 5.9 L (6.2-8.2) g/dL Albumin 3.5 L (3.8-4.9) g/dL - Imaging CT scan - abdomen: report reviewed, image reviewed CT scan - pelvis: report reviewed, image reviewed US - kidney/bladder: report reviewed, image reviewed Assessment and Plan Assessment: Impression: Metastatic bladder cancer. Invasive muscular bladder cancer with bilateral hydronephrosis. Acute renal failure (creatinine 6.3), probably combination of obstruction and intravascular depletion. Recommendations: According to the patient's partner he just started his chemotherapy with Dr. Hankins. He has been voiding with some hematuria as expected. His creatinine is markedly elevated from his baseline as mentioned above. If the creatinine does not normalize with fluids then most likely the remaining insufficiency to be due to obstruction. The obstruction is in the bladder due to the bladder cancer and would not be amenable to endoscopic laser the stents and control from the bladder. He would need bilateral nephrostomy tubes to control his renal failure if medicine and oncology requested that. I am uncertain as to whether interventional radiology is available present at this institution to place nephrostomy tubes at this point in time. This is been discussed with the patient and his partner. We will discuss this with medicine and oncology so as to decide how to proceed forward. Time with Patient: Greater than 30
[2023-05-27 11:44] LABS: BUN/Creat Ratio 8.95 Ratio (12.00-20.00); Blood Urea Nitrogen 57.3 mg/dL (9.0-27.0); Calcium 9.4 mg/dL (8.7-10.3); Carbon Dioxide 13.2 mmol/L (21.6-31.8); Chloride 106 mmol/L (96-109); Glucose 141 mg/dL (70-110); Potassium 5.9 mmol/L (3.5-5.5); Sodium 138 mmol/L (135-145)
[2023-05-27 12:07] LABS: Glucose,Whole Blood 150 mg/dL (70-110)
--- NOTE | 2023-05-27 13:04 | P.PN ---
Subjective Progress Note Date: 05/27/23 Patient follow-up for arnaldo. Has been evaluated by urology this morning due to concerns for hydronephrosis. Currently denying any new complaints at this time. VS stable. HEENT: No JVD. HEART: regular rate and rhythm. Abdomen: soft, non-tender. Ext: No edema. Objective - Vital Signs Vital signs: Vital Signs Temp 97.7 F 05/27/23 07:37 Pulse 105 H 05/27/23 09:33 Resp 24 05/27/23 07:37 BP 171/84 05/27/23 09:33 Pulse Ox 96 05/27/23 07:37 FiO2 Intake & Output 05/26/23 05/27/23 05/27/23 18:59 06:59 18:59 Intake Total 1780.408 272.575 Output Total 100 300 250 Balance 1680.408 -27.425 -250 Weight 63.957 kg Intake: Intake, IV Titration 1780.408 32.575 Amount Heparin Sod,Pork in 0.45% 120.408 32.575 NaCl 25,000 unit In 0.45 % NaCl 1 250ml.bag @ 18 UNITS/KG/HR 11.512 mls/hr IV .[id number] [facility] Rx#: [id number] Sodium Chloride 0.9% 1, 1660 000 ml @ 130 mls/hr IV . [id number] [facility] Rx#:[id number] Oral 240 Output: Urine 100 300 250 Other: Voiding Method Toilet Toilet Urinal # Voids 1 1 - Labs CBC & Chem 7: 05/27/23 05:59 05/27/23 05:59 Labs: Abnormal Lab Results - Last 24 Hours (Table) 05/26/23 05/26/23 05/26/23 Range/Units 12:14 13:09 15:23 WBC (4.50-10.00) X 10*3/uL RBC (4.40-5.60) X 10*6/uL Hgb (13.0-17.0) g/dL Hct (39.6-50.0) % MCV (80.0-97.0) FL MCH (27.0-32.0) pg MCHC (32.0-37.0) g/dL RDW (11.5-14.5) % APTT 56.4 H (22.0-30.0) sec Potassium (3.5-5.5) mmol/L Carbon Dioxide (21.6-31.8) mmol/L Anion Gap (4.00-12.00) mmol/L BUN (9.0-27.0) mg/dL Creatinine (0.6-1.5) mg/dL Est GFR (CKD-EPI) (>=60) BUN/Creatinine Ratio (12.00-20.00) Ratio Glucose (70-110) mg/dL POC Glucose (mg/dL) (70-110) mg/dL Procalcitonin 0.31 H (0.02-0.09) ng/mL Urine Blood Large H (Negative) Urine RBC >182 H (0-5) /hpf Urine Bacteria Rare H (None) /hpf Urine Mucus Rare H (None) /hpf 05/27/23 05/27/23 05/27/23 Range/Units 05:59 05:59 12:06 WBC 21.26 H (4.50-10.00) X 10*3/uL RBC 4.07 L (4.40-5.60) X 10*6/uL Hgb 9.6 L (13.0-17.0) g/dL Hct 30.7 L (39.6-50.0) % MCV 75.4 L (80.0-97.0) FL MCH 23.6 L (27.0-32.0) pg MCHC 31.3 L (32.0-37.0) g/dL RDW 15.3 H (11.5-14.5) % APTT (22.0-30.0) sec Potassium 5.9 H (3.5-5.5) mmol/L Carbon Dioxide 13.2 L (21.6-31.8) mmol/L Anion Gap 18.80 H (4.00-12.00) mmol/L BUN 57.3 H (9.0-27.0) mg/dL Creatinine 6.4 H (0.6-1.5) mg/dL Est GFR (CKD-EPI) 9 L (>=60) BUN/Creatinine Ratio 8.95 L (12.00-20.00) Ratio Glucose 141 H (70-110) mg/dL POC Glucose (mg/dL) 150 H (70-110) mg/dL Procalcitonin (0.02-0.09) ng/mL Urine Blood (Negative) Urine RBC (0-5) /hpf Urine Bacteria (None) /hpf Urine Mucus (None) /hpf Assessment and Plan Plan: Assessment: 1. Non-oliguric ARNALDO, likely ATN from chronic NSAID use and obstructive uropathy. Baseline creatinine 0.9, presented 6.8, improved to 6.4 today. Renal u ltrasound shows moderate left hydronephrosis 2. Bladder Cancer currently undergoing chemotherapy. 3. Metabolic Acidosis 4. COPD Exacerbation-Pulmonology following. V/Q low probability for PE 5. Hyperkalemia due to a GI and obstructive uropathy. Plan: UA showed large blood but CPK was not significantly elevated. Urologist and consult a due to hydronephrosis on ultrasound, may need nephrostomy tube placement as stenting is likely not an option given his bladder cancer. We'll start bicarb drip given hyperkalemia and persistent acidosis. No uremic symptoms to need HD at this time Patient still has decent urine output.
[2023-05-27 13:49] LABS: Basophils # (A) 0.03 X 10*3/uL (0.00-0.10); Basophils % (A) 0.1 %; Eosinophils # (A) 0 X 10*3/uL (0.04-0.35); Eosinophils % (A) 0 %; Lymphocytes # (A) 0.36 X 10*3/uL (0.90-5.00); Lymphocytes % (A) 1.7 %; Monocytes # (A) 0.61 X 10*3/uL (0.20-1.00); Monocytes % (A) 2.9 %; Neutrophils # (A) 20.11 X 10*3/uL (1.80-7.70); Neutrophils % (A) 94.6 %
--- NOTE | 2023-05-27 13:53 | P.PN ---
Subjective Progress Note Date: 05/27/23 This is a 63-year-old male patient with a history of bladder mass and left hydronephrosis. He had undergone a TURP and attempted left-sided stent insertion by urology on February 06, 2023. CAT scan of the chest abdomen pelvis from April 2023 revealed findings of progression of disease with left lateral bladder wall eccentric thickening with partial obstruction of left ureter and mild left hydronephrosis. New segment 3 liver lesion concerning metastatic disease. Right lower lobe and increasing size of the left lower lobe pulmonary nodules. Increased retroperitoneal lymph node at the level of the left kidney and left pelvis at sidewall nodes. Indeterminate right inferior pubic ramus 4 mm sclerotic focus. Follow-up imaging for osseous metastatic disease. He had undergone his first treatment for the bladder cancer on May 23, 2023. Yesterday he was seen by Dr. Hankins who referred him here for CAT scan to rule out pulmonary embolism due to his complaints of shortness of breath. Ever, he was find to have significant elevation in his creatinine at 6.82. He did undergo ventilation/perfusion study instead revealed low evidence for pulmonary embolism. He is currently on a heparin drip. X-ray revealed no acute cardiopulmonary process. Evidence of COPD. White count 9.0. Hemoglobin 9.7. Platelets 263. Sodium 136. Potassium 5.4. Bicarb 14. BUN 49. Creatinine 6.3. Glucose 202. Urinalysis with large blood, greater than 182 RBCs. Viral screen negative. The patient was a heavy smoker and drinker for over 40 years however quit smoking and drinking in January 2023. He is seen today in consultation on the regular medical floor. He is currently resting in bed. Aw isabel and alert in no acute distress. He is quite anxious and nervous. He is somewhat of a poor historian. He states he had been taking a lot of ibuprofen due to the pain in his bladder area and down his left leg. The patient is seen today May 27, 2023 in follow-up on the regular medical floor. He is currently sitting up in bed. Awake and alert in no acute distress. He is maintaining good O2 saturation in the 90s on room air. CT scan of the chest without contrast revealed minimal airspace opacity in the lung bases. Trace bilateral pleural effusions and interlobular septal thickening. No evidence for pulmonary fibrosis. Scattered new pulmonary nodules correlate for infectious/inflammatory process. Renal ultrasound does reveal moderate left and mild right hydronephrosis. Bladder wall mass as seen on previous CT. white count 21.2. Hemoglobin 9.6. Platelets 331. Sodium 138. Potassium 5.9. Bicarb 13. BUN 57. Creatinine 6.4. Glucose 141. Procalcitonin was 0.31. He remains on DuoNeb inhalations, Symbicort, Solu-Medrol. Objective - Vital Signs Vital signs: Vital Signs Temp 97.5 F L 05/27/23 12:52 Pulse 100 05/27/23 12:52 Resp 28 H 05/27/23 12:52 BP 179/92 05/27/23 12:52 Pulse Ox 95 05/27/23 12:52 FiO2 Intake & Output 05/26/23 05/27/23 05/27/23 18:59 06:59 18:59 Intake Total 1780.408 272.575 Output Total 100 300 250 Balance 1680.408 -27.425 -250 Weight 63.957 kg Intake: Intake, IV Titration 1780.408 32.575 Amount Heparin Sod,Pork in 0.45% 120.408 32.575 NaCl 25,000 unit In 0.45 % NaCl 1 250ml.bag @ 18 UNITS/KG/HR 11.512 mls/hr IV .[id number] [facility] Rx#: [id number] Sodium Chloride 0.9% 1, 1660 000 ml @ 130 mls/hr IV . Q7H42M [facility] Rx#:[id number] Oral 240 Output: Urine 100 300 250 Other: Voiding Method Toilet Toilet Urinal # Voids 1 1 - Exam GENERAL EXAM: Alert, anxious, thin unkept, 63-year-old male, on room air, in no apparent distress. HEAD: Normocephalic. EYES: Normal reaction of pupils, equal size. NOSE: Clear with pink turbinates. THROAT: No erythema or exudates. NECK: No masses, no JVD. CHEST: No chest wall deformity. LUNGS: Equal air entry with no crackles, wheeze, rhonchi or dullness. Diminished. CVS: S1 and S2 normal with no audible murmur, regular rhythm. ABDOMEN: No hepatosplenomegaly, normal bowel sounds, no guarding or rigidity. SPINE: No scoliosis or deformity SKIN: No rashes CENTRAL NERVOUS SYSTEM: No focal deficits, tone is normal in all 4 extremities. EXTREMITIES: There is no peripheral edema. No clubbing, no cyanosis. Peripheral pulses are intact. - Labs CBC & Chem 7: 05/27/23 05:59 05/27/23 05:59 Labs: Abnormal Lab Results - Last 24 Hours (Table) 05/26/23 05/26/23 05/27/23 Range/Units 13:09 15:23 05:59 WBC 21.26 H (4.50-10.00) X 10*3/uL RBC 4.07 L (4.40-5.60) X 10*6/uL Hgb 9.6 L (13.0-17.0) g/dL Hct 30.7 L (39.6-50.0) % MCV 75.4 L (80.0-97.0) FL MCH 23.6 L (27.0-32.0) pg MCHC 31.3 L (32.0-37.0) g/dL RDW 15.3 H (11.5-14.5) % Potassium (3.5-5.5) mmol/L Carbon Dioxide (21.6-31.8) mmol/L Anion Gap (4.00-12.00) mmol/L BUN (9.0-27.0) mg/dL Creatinine (0.6-1.5) mg/dL Est GFR (CKD-EPI) (>=60) BUN/Creatinine Ratio (12.00-20.00) Ratio Glucose (70-110) mg/dL POC Glucose (mg/dL) (70-110) mg/dL Procalcitonin 0.31 H (0.02-0.09) ng/mL Urine Blood Large H (Negative) Urine RBC >182 H (0-5) /hpf Urine Bacteria Rare H (None) /hpf Urine Mucus Rare H (None) /hpf 05/27/23 05/27/23 Range/Units 05:59 12:06 WBC (4.50-10.00) X 10*3/uL RBC (4.40-5.60) X 10*6/uL Hgb (13.0-17.0) g/dL Hct (39.6-50.0) % MCV (80.0-97.0) FL MCH (27.0-32.0) pg MCHC (32.0-37.0) g/dL RDW (11.5-14.5) % Potassium 5.9 H (3.5-5.5) mmol/L Carbon Dioxide 13.2 L (21.6-31.8) mmol/L Anion Gap 18.80 H (4.00-12.00) mmol/L BUN 57.3 H (9.0-27.0) mg/dL Creatinine 6.4 H (0.6-1.5) mg/dL Est GFR (CKD-EPI) 9 L (>=60) BUN/Creatinine Ratio 8.95 L (12.00-20.00) Ratio Glucose 141 H (70-110) mg/dL POC Glucose (mg/dL) 150 H (70-110) mg/dL Procalcitonin (0.02-0.09) ng/mL Urine Blood (Negative) Urine RBC (0-5) /hpf Urine Bacteria (None) /hpf Urine Mucus (None) /hpf Assessment and Plan Assessment: Shortness of breath possibly related to an acute exacerbation of chronic obstructive pulmonary disease. Chest x-ray shows no acute pulmonary process. The patient is also quite anxious and hypertensive. VQ scan revealed low probability for pulmonary embolism. CT scan of the chest without contrast revealed minimal airspace opacity of the lung bases, trace bilateral pleural effusions, scattered new pulmonary nodules from -2023 correlate for infectious/inflammatory process. Acute kidney injury, presenting creatinine greater than 6.0 secondary to obstructive uropathy and increased amounts of ibuprofen Received first treatment for bladder cancer on 05/23/2023. Recent CT scan reveals findings of progression of disease with left lateral bladder wall eccentric thickening with partial obstruction of the left ureteral ureter and mild left hydronephrosis. Hydronephrosis is mildly progressed since January 2023. New segment 3 liver lesion concerning metastatic disease. Right lower lobe and increasing size of left lower lobe pulmonary nodules. Increase size of retroperitoneal lymph node at the level of the left kidney and left pelvic sidewall nodes. 4 mm sclerotic focus of the right inferior pubic ramus possible CS metastatic disease Former heavy smoker quit in January 2023 Former heavy drinker quit in January 2023 Anxiety Hypertension Plan: The patient was seen and evaluated CT scan of the chest, renal ultrasound, labs and medications reviewed Will need follow-up outpatient PET scan regarding pulmonary nodules Continue bronchodilators Discontinue Solu-Medrol Small prednisone taper due to anxiety Add Xanax as needed Urology and nephrology following Bicarb drip initiated We will continue to follow I have personally seen and examined the patient, performed the documentation and the assessment and plan as written. Number of minutes spent on the visit: 10.
[2023-05-27] MEDS: DEXTROSE 5% IN WATER 1,000 ML with SODIUM BICARB (1 MEQ/ML) 150 ML IV SCH (15:31)
[2023-05-27] MEDS: METOPROLOL TARTRATE 25 MG TAB PO STA (16:49)
--- NOTE | 2023-05-27 17:20 | P.PN ---
Subjective Progress Note Date: 05/27/23 Principal diagnosis: SOB, bladder cancer At today's visit patient is resting comfortably in bed. Patient's breathing has improved today, no labored breathing noted. Patient reports that he gets labored when ambulating to the restroom. Patient also reporting constipation and lower abdominal discomfort. Last BM was 3 to 4 days ago. Lactulose has been started. No improvement in kidney function, creatinine 6.4, GFR 9. Gross hematuria has resolved. Renal ultrasound revealed moderate left and mild right hydronephrosis, left sided bladder wall thickening measuring up to 3 cm with small anterior diverticulum measuring 1.5 x 1.2 cm. Urology has been consulted. CBC revealed increased WBC at 21.2, but pt has received multiple doses of solumedrol which could have contributed to elevation. Hemoglobin 9.6, platelets 331,000. CT chest did not reveal pneumonitis, however greater than 20 new scattered pulmonary nodules noted, correlate for infectious versus inflammatory processes. Pulmonology following and has ordered procalcitonin. Objective - Vital Signs Vital signs: Vital Signs Temp 97.7 F 05/27/23 07:37 Pulse 105 H 05/27/23 09:33 Resp 24 05/27/23 07:37 BP 171/84 05/27/23 09:33 Pulse Ox 96 05/27/23 07:37 FiO2 Intake & Output 05/26/23 05/27/23 05/27/23 18:59 06:59 18:59 Intake Total 1780.408 272.575 Output Total 100 300 250 Balance 1680.408 -27.425 -250 Weight 63.957 kg Intake: Intake, IV Titration 1780.408 32.575 Amount Heparin Sod,Pork in 0.45% 120.408 32.575 NaCl 25,000 unit In 0.45 % NaCl 1 250ml.bag @ 18 UNITS/KG/HR 11.512 mls/hr IV .[id number] [facility] Rx#: [id number] Sodium Chloride 0.9% 1, 1660 000 ml @ 130 mls/hr IV . Q7H42M [facility] Rx#:[id number] Oral 240 Output: Urine 100 300 250 Other: Voiding Method Toilet Toilet Urinal # Voids 1 1 - Constitutional General appearance: Present: average body habitus, no acute distress - EENT Eyes: Present: anicteric sclerae ENT: Present: hearing grossly normal - Respiratory Details: breathing even and unlabored - Cardiovascular Details: well perfused - Gastrointestinal Gastrointestinal Comment(s): lower abd tenderness, no guarding General gastrointestinal: Present: tenderness - Integumentary Integumentary: Absent: cyanotic, jaundiced - Musculoskeletal Musculoskeletal: Present: strength equal bilaterally - Psychiatric Psychiatric: Present: A&O x's 3 - Labs CBC & Chem 7: 05/27/23 05:59 05/27/23 05:59 Labs: Abnormal Lab Results - Last 24 Hours (Table) 05/26/23 05/26/23 05/26/23 Range/Units 05:05 12:14 13:09 WBC (4.50-10.00) X 10*3/uL RBC (4.40-5.60) X 10*6/uL Hgb (13.0-17.0) g/dL Hct (39.6-50.0) % MCV (80.0-97.0) FL MCH (27.0-32.0) pg MCHC (32.0-37.0) g/dL RDW (11.5-14.5) % APTT 56.4 H (22.0-30.0) sec Potassium (3.5-5.5) mmol/L Carbon Dioxide 13.6 L (21.6-31.8) mmol/L Anion Gap 18.40 H (4.00-12.00) mmol/L BUN 48.9 H (9.0-27.0) mg/dL Creatinine 6.3 H (0.6-1.5) mg/dL Est GFR (CKD-EPI) 9 L (>=60) BUN/Creatinine Ratio 7.76 L (12.00-20.00) Ratio Glucose 202 H (70-110) mg/dL Total Bilirubin <0.2 L (0.3-1.2) mg/dL Alkaline Phosphatase 138 H (41-126) U/L Total Protein 5.9 L (6.2-8.2) g/dL Albumin 3.5 L (3.8-4.9) g/dL Albumin/Globulin Ratio 1.46 L (1.60-3.17) Ratio Procalcitonin (0.02-0.09) ng/mL Urine Blood Large H (Negative) Urine RBC >182 H (0-5) /hpf Urine Bacteria Rare H (None) /hpf Urine Mucus Rare H (None) /hpf 05/26/23 05/27/23 05/27/23 Range/Units 15:23 05:59 05:59 WBC 21.26 H (4.50-10.00) X 10*3/uL RBC 4.07 L (4.40-5.60) X 10*6/uL Hgb 9.6 L (13.0-17.0) g/dL Hct 30.7 L (39.6-50.0) % MCV 75.4 L (80.0-97.0) FL MCH 23.6 L (27.0-32.0) pg MCHC 31.3 L (32.0-37.0) g/dL RDW 15.3 H (11.5-14.5) % APTT (22.0-30.0) sec Potassium 5.9 H (3.5-5.5) mmol/L Carbon Dioxide 13.2 L (21.6-31.8) mmol/L Anion Gap 18.80 H (4.00-12.00) mmol/L BUN 57.3 H (9.0-27.0) mg/dL Creatinine 6.4 H (0.6-1.5) mg/dL Est GFR (CKD-EPI) 9 L (>=60) BUN/Creatinine Ratio 8.95 L (12.00-20.00) Ratio Glucose 141 H (70-110) mg/dL Total Bilirubin (0.3-1.2) mg/dL Alkaline Phosphatase (41-126) U/L Total Protein (6.2-8.2) g/dL Albumin (3.8-4.9) g/dL Albumin/Globulin Ratio (1.60-3.17) Ratio Procalcitonin 0.31 H (0.02-0.09) ng/mL Urine Blood (Negative) Urine RBC (0-5) /hpf Urine Bacteria (None) /hpf Urine Mucus (None) /hpf - Imaging and Cardiology CT chest and Renal US reviewed Assessment and Plan (1) Acute exacerbation of chronic obstructive pulmonary disease Current Visit: Yes Status: Acute Priority: High Code(s): J44.1 - CHRONIC OBSTRUCTIVE PULMONARY DISEASE W (ACUTE) EXACERBATION SNOMED Code(s): 640245423 (2) Acute renal failure Current Visit: Yes Status: Acute Priority: High Code(s): N17.9 - ACUTE KIDNEY FAILURE, UNSPECIFIED SNOMED Code(s): 03287928 (3) Bladder cancer Current Visit: Yes Status: Acute Priority: High Code(s): C67.9 - MALIGNANT NEOPLASM OF BLADDER, UNSPECIFIED SNOMED Code(s): 079320086 (4) Shortness of breath Current Visit: Yes Status: Acute Priority: High Code(s): R06.02 - SHORTNESS OF BREATH SNOMED Code(s): 720904475 Plan: SOB: -Seen in clinic on 05/25/23, patient was experiencing significant dyspnea with occasional chest discomfort on inspiration that had been worsening over the last cpl days. Referred pt to ED for further evaluation, for concern of pulmonary embolism vs Keytruda induced pneumonitis vs infectious process. -Chest x-ray revealed no acute cardiopulmonary disease processes with COPD changes. VQ scan revealed low scintigraphic evidence for acute pulmonary embolism. Patient has been started on heparin drip. RSV, COVID, influenza negative. -Solu-Medrol 40 mg q8 has been started. Transitioned to prednisone today -High resolution CT chest obtained for further evaluation to r/o pneumonitis. Scan showed no evidence of pneumonitis. Minimal airspace opacities in lung bases, trace bilateral pleural effusions and greater than 20 new scattered pulmonary nodules noted, correlate for infectious versus inflammatory processes. -Pulmonology following and has ordered procalcitonin. Defer infectious workup/management to pulm/IM team ARNALDO: -Creatinine 6.8, GFR 8. Creatinine on 05/15 was 1.45. Creatinine 6.4 today, still producing urine -UA showing hematuria -Renal ultrasound revealed moderate left and mild right hydronephrosis, left sided bladder wall thickening measuring up to 3 cm with small anterior diverti culum measuring 1.5 x 1.2 cm. -Urology has been consulted. Note reviewed. Recommending if creatinine does not begin to normalize with fluids, then would recommend bilateral nephrostomy tubes due to bladder obstruction r/t tumor. Will have to speak with IR team tomorrow to see if this is something that can be placed here, if not patient would need to be transferred to tertiary center for further management -Nephrology following, no plan for HD at this time Anemia: -Hgb upon admit 11.4. Today hgb 9.6, MCV 75.4 -Gross hematuria prior to admit. UA positive for hematuria. Gross hematuria now resolved -Anemia workup ordered -Continue to monitor CBC, please transfuse for hgb less than 7 or if symptomatic Urothelial carcinoma: -Completed day 1 of cycle 1 of pembrolizumab/enfortumab vedotin on 05/23/2023. Will likely have to hold day 8 of cycle 1, to allow adequate recovery from acute condition -High resolution CT chest showed no evidence of pneumonitis -Thyroid studies and cortisol ordered -Clinic f/u upon discharge will be scheduled Patient and family updated on clinical course and POC
[2023-05-27] MEDS: LACTULOSE 20 GM/30 ML CUP PO ONE (18:09)
[2023-05-27] MEDS: METOPROLOL TARTRATE 25 MG TAB PO SCH (20:17)
[2023-05-28 00:53] LABS: Basophils % (A) 0 %; Eosinophils # (A) 0.1 k/uL (0-0.7); Eosinophils % (A) 0 %; HCT 31.5 % (39.0-53.0); Lymphocytes # (A) 0.7 k/uL (1.0-4.8); Lymphocytes % (A) 3 %; MCH 23.5 pg (25.0-35.0); MCHC 30.9 g/dL (31.0-37.0); MCV 76.1 fL (80.0-100.0); Mean Platelet Volume 9.7; Microcytosis Slight; Monocytes # (A) 1.4 k/uL (0-1.0); Monocytes % (A) 6 %; Neutrophils # (A) 19.9 k/uL (1.3-7.7); Neutrophils % (A) 89 %; Platelet Count 318 k/uL (150-450); RBC 4.14 m/uL (4.30-5.90); WBC 22.3 k/uL (3.8-10.6)
[2023-05-28 00:55] LABS: HGB 9.7 gm/dL (13.0-17.5)
[2023-05-28 01:04] LABS: INR 0.9 (<1.2); Partial Thromboplastin Time 23.8 sec (22.0-30.0)
[2023-05-28] MEDS: HEPARIN SODIUM 1,000 UN/ML (10ML VL) IV ONE (01:45)
[2023-05-28] MEDS: HEPARIN SOD,PORK IN 0.45% NACL 25,000 UNIT in 0.45% NACL 1 250ML.BAG IV SCH (01:46)
[2023-05-28] MEDS: SODIUM ZIRCONIUM CYCLOSILICATE 10 GM PACKET PO ONE (01:47)
[2023-05-28] MEDS: DILTIAZEM 125 MG in SODIUM CHLORIDE 0.9% 100 ML IV SCH (01:47)
[2023-05-28 04:26] LABS: Glucose,Whole Blood 106 mg/dL (70-110)
[2023-05-28 08:11] LABS: African American GFR (CKD) 24 (>60 ml/min/1.73 sqM); Anion Gap 11 mmol/L; Blood Urea Nitrogen 48 mg/dL (9-20); Calcium 9.3 mg/dL (8.4-10.2); Carbon Dioxide 19 mmol/L (22-30); Chloride 112 mmol/L (98-107); Glucose 108 mg/dL (74-99); Non-African American GFR(CKD) 21 (>60 ml/min/1.73 sqM); Potassium 4.7 mmol/L (3.5-5.1); Sodium 142 mmol/L (137-145)
[2023-05-28 08:33] LABS: % Iron Saturation 31.37 (15.00-50.00)
[2023-05-28 08:50] LABS: T4, Free (Free Thyroxine) 1.83 ng/dL (0.78-2.19)
[2023-05-28] MEDS: AMIODARONE 300 MG in D5W 250ml IV ONE (09:07)
[2023-05-28] MEDS: HEPARIN SODIUM 1,000 UN/ML (10ML VL) IV PRN (09:07)
[2023-05-28] MEDS: predniSONE 10 MG TAB PO SCH (09:08)
[2023-05-28] MEDS: METOPROLOL TARTRATE 50 MG TAB PO SCH (09:08)
[2023-05-28] MEDS: DEXTROSE 5% IN WATER 100 ML with AMIODARONE 300 MG IV ONE (09:38)
--- NOTE | 2023-05-28 10:37 | P.CRDCN ---
History of Present Illness History of present illness: HISTORY OF PRESENT ILLNESS: This is a 63-year-old male with a past medical history significant for bladder cancer, COPD, hypertension, anxiety, former nicotine dependence and former alcoh ol abuse. 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 We have been asked to see the patient in consultation for new onset atrial fibrillation. Patient examined at the bedside. The patient was sent to the emergency room by his oncologist secondary to shortness of breath to rule out pulmonary embolism. Patient is currently undergoing chemotherapy for bladder cancer. Patient was found to be in acute renal failure with a creatinine of 6.82. Creatinine today 3.02. Yesterday, the patient went into A-fib with RVR. He was started on IV Cardizem and IV heparin and transferred to [facility]. This morning the patient remains in atrial fibrillation with a heart rate in the 140s. His Cardizem drip is i nfusing at 15 mg an hour DIAGNOSTICS: - EKG reveals A-fib with RVR. - Chest xray negative for acute process. COPD changes.. - Laboratory data: WBC 22.3. Hemoglobin 9.7. Platelet count 318. Sodium 142. Potassium 4.7. BUN 48. Creatinine 3.02. - Current home cardiac medications include amlodipine 5 mg daily. REVIEW OF SYSTEMS: At the time of my exam: CONSTITUTIONAL: Denies fever or chills. HEENT: Denies blurred vision, vision changes, or eye pain. Denies hemoptysis CARDIOVASCULAR: Denies chest pain. Denies orthopnea. Denies PND. Denies palpitations RESPIRATORY: Denies shortness of breath. GASTROINTESTINAL: Denies abdominal pain. Denies nausea or vomiting. HEMATOLOGIC: Denies bleeding disorders. GENITOURINARY: Denies any blood in urine. SKIN: Denies pruitis. Denies rash. PHYSICAL EXAM: VITAL SIGNS: Reviewed. GENERAL: Well-developed in no acute distress. HEENT: Head is normocephalic. Pupils are equal, round. Sclerae anicteric. Mucous membranes of the mouth are moist. Neck supple. No JVD or thyromegaly LUNGS: Respirations even and unlabored. Lungs essentially clear to auscultation bilaterally. HEART: Tachycardic. Irregular rate and rhythm. S1 and S2 heard. ABDOMEN: Soft. Nondistended. Nontender. EXTREMITIES: Normal range of motion. No clubbing or cyanosis. Peripheral pulses intact. No lower extremity edema NEUROLOGIC: Awake and alert. Oriented x 3. ASSESSMENT: Shortness of breath Acute exacerbation of COPD New onset atrial fibrillation with RVR New pulmonary nodules New liver lesion, concerning for metastasis Acute renal failure secondary to obstructive uropathy Partial obstruction of left ureteral ureter and mild left hydronephrosis History of bladder cancer s/p first treatment Hypertension Anxiety History of nicotine dependence History of alcohol abuse PLAN: Will obtain 2D echo when patient's heart rates are better controlled Increase metoprolol to 50 mg 3 times a day Continue IV heparin Continue IV Cardizem Begin IV amiodarone bolus and infusion. 300 mg bolus to be given over [address] Lentz Continue telemetry monitoring Further recommendations pending patient course Nurse practitioner note has been reviewed by physician. Signing provider agrees with the documented findings, assessment, and plan of care documented by [employer] OPER[employer] SPECIALIST as a scribe. 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 Past Anesthesia/Blood Transfusion Reactions: No Reported Reaction Past Psychological History: No Psychological Hx Reported Smoking Status: Former smoker Past Alcohol Use History: Occasional Additional Past Alcohol Use History / Comment(s): quit smoking january 2023, smoked on/off for 20 years. Past Drug Use History: None Reported - Past Family History Father Family Medical History: Cancer Additional Family Medical History / Comment(s): lung cancer, smoker Medications and Allergies Home Medications Medication Instructions Recorded Confirmed Type HYDROcodone/APAP 10-325MG [[place] 1 tab PO Q4HR PRN 3 Days #18 tab 05/15/23 05/25/23 Rx 10-325] Ondansetron [Zofran] 4 mg PO Q4H PRN 05/25/23 05/25/23 History amLODIPine [Norvasc] 5 mg PO DAILY 05/25/23 05/25/23 History Allergies Allergy/AdvReac Type Severity Reaction Status Date / Time Iodinated Contrast Media Allergy Neck Verified 05/25/23 22:49 swelling Physical Exam Vitals: Vital Signs Temp Pulse Pulse Resp BP BP Pulse Ox 05/28/23 08:36 98.1 F 144 H 24 130/80 92 L 05/28/23 07:50 93 L 05/28/23 05:36 97.7 F 05/28/23 05:03 98.2 F 147 H 30 H 131/90 93 L 05/28/23 01:00 97.9 F 131 H 26 H 115/80 91 L 05/27/23 23:34 140 H 24 136/86 94 L 05/27/23 20:00 97.4 F L 88 20 159/86 96 05/27/23 16:13 104 H 05/27/23 15:37 106 H 175/89 05/27/23 12:52 97.5 F L 100 28 H 179/92 95 Intake and Output 05/27/23 05/28/23 05/28/23 22:59 06:59 14:59 Intake Total 275.712 Output Total 200 350 Balance -200 -74.288 Intake: Intake, IV Titration 95.712 Amount Diltiazem 125 mg In 38.917 Sodium Chloride 0.9% 100 ml @ 10 MG/HR 10 mls/hr IV .[id number] [facility] Rx#: [id number] Heparin Sod,Pork in 0.45% 56.795 NaCl 25,000 unit In 0.45 % NaCl 1 250ml.bag @ 12 UNITS/KG/HR 7.675 mls/hr IV .Q24H [facility] Rx#: [id number] Oral 180 Output: Urine 200 350 Other: Voiding Method Toilet # Voids 3 3 1 Results 05/28/23 00:43 05/28/23 06:42 Coagulation 05/28/23 05/28/23 Range/Units 00:43 06:42 PT 10.0 (10.0-12.5) sec APTT 23.8 28.6 (22.0-30.0) sec CBC 05/28/23 Range/Units 00:43 WBC 22.3 H (3.8-10.6) k/uL RBC 4.14 L (4.30-5.90) m/uL Hgb 9.7 L D (13.0-17.5) gm/dL Hct 31.5 L (39.0-53.0) % Plt Count 318 (150-450) k/uL Comprehensive Metabolic Panel 05/27/23 05/28/23 Range/Units 05:59 06:42 Sodium 138 142 (135-145) mmol/L Potassium 5.9 H 4.7 (3.5-5.5) mmol/L Chloride 106 112 H (96-109) mmol/L Carbon Dioxide 13.2 L 19 L (21.6-31.8) mmol/L BUN 57.3 H 48 H (9.0-27.0) mg/dL Creatinine 6.4 H 3.02 H (0.6-1.5) mg/dL Glucose 141 H 108 H (70-110) mg/dL Calcium 9.4 9.3 (8.7-10.3) mg/dL Current Medications Generic Name Dose Route Start Last Admin Trade Name Freq PRN Reason Stop Dose Admin Hydrocodone Bitart/Acetaminophen 1 each 05/26/23 02:04 05/28/23 09:06 Hydrocodone/Apap 10-325mg 1 Each Tab PO 1 each Q4HR PRN Administration Pain Albuterol/Ipratropium 3 ml 05/25/23 20:37 05/26/23 20:14 Ipratropium-Albuterol 3 Ml Neb INHALATION 3 ml RT-QID PRN Administration Shortness Of Breath Or Wheezing Alprazolam 0.5 mg 05/27/23 08:18 05/27/23 23:01 Alprazolam 0.5 Mg Tab PO 0.5 mg BID PRN Administration Anxiety Amlodipine Besylate 5 mg 05/26/23 09:00 05/28/23 09:08 Amlodipine 5 Mg Tab PO 5 mg DAILY [facility] Administration Budesonide/Formoterol Fumarate 2 puff 05/26/23 20:00 05/28/23 07:48 Symbicort 160-4.5 Mcg Inhaler INHALATION 2 puff RT-BID [facility] Administration Heparin Sodium (Porcine) 0 unit 05/28/23 00:09 05/28/23 09:07 Heparin Sodium 1,000 Un/Ml (10ml Vl) IV 3,197 unit PER PROTOCOL PRN Administration Low PTT Protocol Sodium Bicarbonate 150 ml/ 1,150 mls @ 100 mls/hr 05/27/23 14:00 05/28/23 01:47 Dextrose/Water IV 100 mls/hr .[id number] [facility] Administration Heparin Sodium/Sodium Chloride 250 mls @ 7.675 mls/hr 05/28/23 00:30 05/28/23 09:10 25,000 unit/ Sodium Chloride IV 15 units/kg/hr .Q24H [facility] 9.594 mls/hr Titration Protocol 12 UNITS/KG/HR Diltiazem HCl 125 mg/ Sodium 125 mls @ 10 mls/hr 05/28/23 00:30 05/28/23 09:34 Chloride IV 0 mg/hr .[id number] [facility] 0 mls/hr Infusion 10 MG/HR Amiodarone HCl 360 mg/ 200 mls @ 33.333 mls/hr 05/28/23 11:00 Dextrose/Water IV 05/28/23 16:59 .Q6H ONE Protocol 1 MG/MIN Amiodarone HCl 450 mg/ 250 mls @ 16.667 mls/hr 05/28/23 17:00 Dextrose/Water IV 05/29/23 10:59 .Q15H [facility] Protocol 0.5 MG/MIN Amiodarone HCl 300 mg/ 256 mls @ 128 mls/hr 05/28/23 09:00 05/28/23 09:07 Dextrose/Water IV 05/28/23 10:59 128 mls/hr .Q2H ONE Administration Lactulose 20 gm 05/26/23 22:00 05/28/23 09:09 Lactulose 20 Gm/30 Ml Cup PO Not Given DAILY [facility] Metoprolol Tartrate 50 mg 05/28/23 09:00 05/28/23 09:08 Metoprolol Tartrate 50 Mg Tab PO 50 mg TID [facility] Administration Naloxone HCl 0.2 mg 05/25/23 20:38 Naloxone 0.4 Mg/Ml 1 Ml Vial IV Q2M PRN Opioid Reversal Ondansetron HCl 4 mg 05/25/23 20:38 Ondansetron 4 Mg/2 Ml Vial IVP Q8HR PRN Nausea And Vomiting Prednisone 30 mg 05/28/23 09:00 05/28/23 09:08 Prednisone 10 Mg Tab PO 30 mg DAILY [facility] Administration Intake and Output 05/27/23 05/28/23 05/28/23 22:59 06:59 14:59 Intake Total 275.712 Output Total 200 350 Balance -200 -74.288 Intake: Intake, IV Titration 95.712 Amount Diltiazem 125 mg In 38.917 Sodium Chloride 0.9% 100 ml @ 10 MG/HR 10 mls/hr IV .[id number] [facility] Rx#: [id number] Heparin Sod,Pork in 0.45% 56.795 NaCl 25,000 unit In 0.45 % NaCl 1 250ml.bag @ 12 UNITS/KG/HR 7.675 mls/hr IV .Q24H [facility] Rx#: [id number] Oral 180 Output: Urine 200 350 Other: Voiding Method Toilet # Voids 3 3 1 05/28/23 00:43 05/28/23 06:42
[2023-05-28 10:59] LABS: HCT 28.6 % (39.6-50.0); MCH 23.5 pg (27.0-32.0); MCHC 31.5 g/dL (32.0-37.0); MCV 74.7 FL (80.0-97.0); Mean Platelet Volume 11.5 FL (9.5-12.2); NRBC Per 100 WBC 0 X 10*3/uL (0.00-0.01); Platelet Count 327 X 10*3/uL (140-440); RBC 3.83 X 10*6/uL (4.40-5.60); RDW 15.6 % (11.5-14.5); WBC 21.32 X 10*3/uL (4.50-10.00)
[2023-05-28 11:30] LABS: Basophils # (A) 0.02 X 10*3/uL (0.00-0.10); Basophils % (A) 0.1 %; Eosinophils # (A) 0.18 X 10*3/uL (0.04-0.35); Eosinophils % (A) 0.8 %; Lymphocytes # (A) 0.86 X 10*3/uL (0.90-5.00); Monocytes # (A) 1.57 X 10*3/uL (0.20-1.00); Monocytes % (A) 7.4 %; Neutrophils # (A) 18.55 X 10*3/uL (1.80-7.70); RBC Morphology Normal (Normal)
[2023-05-28] MEDS: AMIODARONE 360 MG in DEXTROSE 5% IN WATER 200 ML IV ONE (11:54)
--- NOTE | 2023-05-28 12:32 | P.PN ---
Subjective Patient is seen for follow-up for acute kidney injury. There are plans for possible transfer to tertiary care center for nephrostomy if renal function does not improve. However serum creatinine has improved significantly today to 3.0 from 6.4 yesterday. Patient states he has been voiding. Maintained on bicarb drip and IV Cardizem as well as amiodarone. No complaints of chest pains or shortness of breath. Objective - Vital Signs Vital signs: Vital Signs Temp 98.1 F 05/28/23 08:36 Pulse 144 H 05/28/23 08:36 Resp 24 05/28/23 08:36 BP 130/80 05/28/23 08:36 Pulse Ox 92 L 05/28/23 08:36 FiO2 Intake & Output 05/27/23 05/28/23 05/28/23 18:59 06:59 18:59 Intake Total 285.712 Output Total 250 200 350 Balance -250 -200 -64.288 Intake: IV 10 Invasive Line 3 10 Intake, IV Titration 95.712 Amount Diltiazem 125 mg In 38.917 Sodium Chloride 0.9% 100 ml @ 10 MG/HR 10 mls/hr IV .[id number] [facility] Rx#: [id number] Heparin Sod,Pork in 0.45% 56.795 NaCl 25,000 unit In 0.45 % NaCl 1 250ml.bag @ 12 UNITS/KG/HR 7.675 mls/hr IV .Q24H [facility] Rx#: [id number] Oral 180 Output: Urine 250 200 350 Other: Voiding Method Toilet Toilet # Voids 3 3 1 - Exam Patient is awake, comfortable, no acute distress Examination of the heart S1 and S2 Examination of the lungs bilateral breath sounds are heard Abdomen is soft nontender Examination lower extremities shows no evidence of edema 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 intact - Labs CBC & Chem 7: 05/28/23 06:42 05/28/23 06:42 Labs: Abnormal Lab Results - Last 24 Hours (Table) 05/27/23 05/27/23 05/28/23 Range/Units 05:59 10:51 00:43 WBC 22.3 H (3.8-10.6) k/uL RBC 4.14 L (4.30-5.90) m/uL Hgb 9.7 L D (13.0-17.5) gm/dL Hct 31.5 L (39.0-53.0) % MCV 76.1 L (80.0-100.0) fL MCH 23.5 L (25.0-35.0) pg MCHC 30.9 L (31.0-37.0) g/dL RDW (11.5-14.5) % Immature Gran # 0.15 H (0.00-0.04) X 10*3/uL Neutrophils # 20.11 H 19.9 H (1.80-7.70) X 10*3/uL Lymphocytes # 0.36 L 0.7 L (0.90-5.00) X 10*3/uL Monocytes # 1.4 H (0-1.0) k/uL Eosinophils # 0 L (0.04-0.35) X 10*3/uL Chloride (98-107) mmol/L Carbon Dioxide (22-30) mmol/L BUN (9-20) mg/dL Creatinine (0.66-1.25) mg/dL Glucose (74-99) mg/dL Transferrin 182.0 L (204.0-354.0) mg/dL Ferritin 532.0 H (22.0-322.0) ng/mL 05/28/23 05/28/23 Range/Units 06:42 06:42 WBC 21.32 H (3.8-10.6) k/uL RBC 3.83 L (4.30-5.90) m/uL Hgb 9.0 L (13.0-17.5) gm/dL Hct 28.6 L (39.0-53.0) % MCV 74.7 L (80.0-100.0) fL MCH 23.5 L (25.0-35.0) pg MCHC 31.5 L (31.0-37.0) g/dL RDW 15.6 H (11.5-14.5) % Immature Gran # 0.14 H (0.00-0.04) X 10*3/uL Neutrophils # 18.55 H (1.80-7.70) X 10*3/uL Lymphocytes # 0.86 L (0.90-5.00) X 10*3/uL Monocytes # 1.57 H (0-1.0) k/uL Eosinophils # (0.04-0.35) X 10*3/uL Chloride 112 H (98-107) mmol/L Carbon Dioxide 19 L (22-30) mmol/L BUN 48 H (9-20) mg/dL Creatinine 3.02 H (0.66-1.25) mg/dL Glucose 108 H (74-99) mg/dL Transferrin (204.0-354.0) mg/dL Ferritin (22.0-322.0) ng/mL Assessment and Plan Assessment: 1. Non-oliguric ARNALDO, likely ATN from chronic NSAID use and obstructive uropathy. Baseline creatinine 0.9, presented 6.8, improved to 3.0 today. Maintained on IV fluids. Renal ultrasound shows moderate left hydronephrosis. No plans for ureteral stents but patient may need nephrostomy tube if renal function does not improve however serum creatinine has improved significantly today. 2. Bladder Cancer currently undergoing chemotherapy. 3. Metabolic Acidosis 4. COPD Exacerbation-Pulmonology following. V/Q low probability for PE 5. Hyperkalemia due to a GI and obstructive uropathy. Improved 6. A. fib with RVR Plan: Continue with bicarb drip Repeat labs in a.m.
--- NOTE | 2023-05-28 12:39 | P.PN ---
Subjective Progress Note Date: 05/28/23 63-year-old male patient with a history of bladder mass and left hydronephrosis. He had undergone a TURP and attempted left-sided stent insertion by urology on February 06, 2023. CAT scan of the chest abdomen pelvis from April 2023 revealed findings of progression of disease with left lateral bladder wall eccentric thickening with partial obstruction of left ureter and mild left hydronephrosis. New segment 3 liver lesion concerning metastatic disease. Right lower lobe and increasing size of the left lower lobe pulmonary nodules. Increased retroperitoneal lymph node at the level of the left kidney and left pelvis at sidewall nodes. Indeterminate right inferior pubic ramus 4 mm sclerotic focus. Follow-up imaging for osseous metastatic disease. He had undergone his first treatment for the bladder cancer on May 23, 2023. Yesterday he was seen by Dr. Hankins who referred him here for CAT scan to rule out pulmonary embolism due to his complaints of shortness of breath. Ever, he was find to have significant elevation in his creatinine at 6.82. He did undergo ventilation/perfusion study instead revealed low evidence for pulmonary embolism. He is currently on a heparin drip. X-ray revealed no acute cardiopulmonary process. Evidence of COPD. White count 9.0. Hemoglobin 9.7. Platelets 263. Sodium 136. Potassium 5.4. Bicarb 14. BUN 49. Creatinine 6.3. Glucose 202. Urinalysis with large blood, greater than 182 RBCs. Viral screen negative. The patient was a heavy smoker and drinker for over 40 years however quit smoking and drinking in January 2023. He is seen today in consultation on the regular medical floor. He is currently resting in bed. Awake and alert in no acute distress. He is quite anxious and nervous. He is somewhat of a poor historian. He states he had been taking a lot of ibuprofen due to the pain in his bladder area and down his left leg. 05/28. Patient seen and examined. Blood work done this morning showed WBC 22.3, hemoglobin 9.7, platelet count 318, sodium 142, potassium 4.7, BUN 48, creatinine 3.02. Patient went to [facility] with RVR overnight, currently on amiodarone and heparin REVIEW OF SYSTEMS: CONSTITUTIONAL: No fever, no malaise,. CARDIOVASCULAR: No chest pain, no palpitations, no syncope. PULMONARY: No shortness of breath, no cough, GASTROINTESTINAL: No diarrhea, no nausea, no vomiting, no abdominal pain. NEUROLOGICAL: No headaches, no weakness, PHYSICAL EXAMINATION: GENERAL: The patient is alert and oriented x3, not in any acute distress. Well developed, well nourished. HEENT: Pupils are round and equally reacting to light. EOMI. No scleral icterus. No conjunctival pallor. Normocephalic, atraumatic. No pharyngeal erythema. No thyromegaly. CARDIOVASCULAR: S1 and S2 present. No murmurs, rubs, or gallops. Irregular in rhythm and rate PULMONARY: Chest is clear to auscultation, no wheezing or crackles. ABDOMEN: Soft, nontender, nondistended, normoactive bowel sounds. No palpable organomegaly. MUSCULOSKELETAL: No joint swelling or deformity. EXTREMITIES: No cyanosis, clubbing, or pedal edema. NEUROLOGICAL: Gross neurological examination did not reveal any focal deficits. SKIN: No rashes. Assessment and plan Acute exacerbation COPD Acute hypoxemic respiratory failure Dyspnea Anemia A-fib RVR Acute renal injury; creatinine at 6.3 upon admission Uncontrolled hypertension History of bladder CA Anxiety tobacco addiction Monitor vital signs monitor CBC Monitor CMP Continue breathing treatments Continue prednisone Continue pharmacy to dose heparin Continue amiodarone and Lopressor ultrasound showed evidence of obstructive uropathy/hydronephrosis, patient was seen by nephrology and he was also seen by urology. Both are addressing his renal issues, and whether the patient may need nephrostomy tubes or not this is to be decided upon by urology. According to nephrology the patient does not need immediate hemodialysis, as the patient is making urine, and he does not have significant uremia symptoms to start hemodialysis. Pulmonology following Nephrology following Cardiology consulted Labs and medication were reviewed.. Continue same treatment. Continue with symptomatic treatment. Resume home medication. Monitor labs and vitals. DVT and GI prophylaxis. Further recommendations as per clinical course of the patient Dictation was produced using [employer] dictation software. please excuse any grammatical, word or spelling errors. Objective - Vital Signs Vital signs: Vital Signs Temp 98.1 F 05/28/23 08:36 Pulse 144 H 05/28/23 08:36 Resp 24 05/28/23 08:36 BP 130/80 05/28/23 08:36 Pulse Ox 92 L 05/28/23 08:36 FiO2 Intake & Output 02/18/24 02/19/24 02/19/24 18:59 06:59 18:59 Intake Total 275.712 Output Total 250 200 350 Balance -250 -200 -74.288 Intake: Intake, IV Titration 95.712 Amount Diltiazem 125 mg In 38.917 Sodium Chloride 0.9% 100 ml @ 10 MG/HR 10 mls/hr IV .[id number] [facility] Rx#: [id number] Heparin Sod,Pork in 0.45% 56.795 NaCl 25,000 unit In 0.45 % NaCl 1 250ml.bag @ 12 UNITS/KG/HR 7.675 mls/hr IV .Q24H [facility] Rx#: [id number] Oral 180 Output: Urine 250 200 350 Other: Voiding Method Toilet # Voids 3 3 1 - Labs CBC & Chem 7: 05/28/23 06:42 05/28/23 06:42 Labs: Abnormal Lab Results - Last 24 Hours (Table) 05/26/23 05/27/23 05/27/23 Range/Units 15:23 05:59 05:59 WBC 21.26 H (4.50-10.00) X 10*3/uL RBC 4.07 L (4.40-5.60) X 10*6/uL Hgb 9.6 L (13.0-17.0) g/dL Hct 30.7 L (39.6-50.0) % MCV 75.4 L (80.0-97.0) FL MCH 23.6 L (27.0-32.0) pg MCHC 31.3 L (32.0-37.0) g/dL RDW 15.3 H (11.5-14.5) % Immature Gran # 0.15 H (0.00-0.04) X 10*3/uL Neutrophils # 20.11 H (1.80-7.70) X 10*3/uL Lymphocytes # 0.36 L (0.90-5.00) X 10*3/uL Monocytes # (0-1.0) k/uL Eosinophils # 0 L (0.04-0.35) X 10*3/uL Potassium 5.9 H (3.5-5.5) mmol/L Chloride (98-107) mmol/L Carbon Dioxide 13.2 L (21.6-31.8) mmol/L Anion Gap 18.80 H (4.00-12.00) mmol/L BUN 57.3 H (9.0-27.0) mg/dL Creatinine 6.4 H (0.6-1.5) mg/dL Est GFR (CKD-EPI) 9 L (>=60) BUN/Creatinine Ratio 8.95 L (12.00-20.00) Ratio Glucose 141 H (70-110) mg/dL POC Glucose (mg/dL) (70-110) mg/dL Transferrin (204.0-354.0) mg/dL Ferritin (22.0-322.0) ng/mL Procalcitonin 0.31 H (0.02-0.09) ng/mL 05/27/23 05/27/23 05/28/23 Range/Units 10:51 12:06 00:43 WBC 22.3 H (4.50-10.00) X 10*3/uL RBC 4.14 L (4.40-5.60) X 10*6/uL Hgb 9.7 L D (13.0-17.0) g/dL Hct 31.5 L (39.6-50.0) % MCV 76.1 L (80.0-97.0) FL MCH 23.5 L (27.0-32.0) pg MCHC 30.9 L (32.0-37.0) g/dL RDW (11.5-14.5) % Immature Gran # (0.00-0.04) X 10*3/uL Neutrophils # 19.9 H (1.80-7.70) X 10*3/uL Lymphocytes # 0.7 L (0.90-5.00) X 10*3/uL Monocytes # 1.4 H (0-1.0) k/uL Eosinophils # (0.04-0.35) X 10*3/uL Potassium (3.5-5.5) mmol/L Chloride (98-107) mmol/L Carbon Dioxide (21.6-31.8) mmol/L Anion Gap (4.00-12.00) mmol/L BUN (9.0-27.0) mg/dL Creatinine (0.6-1.5) mg/dL Est GFR (CKD-EPI) (>=60) BUN/Creatinine Ratio (12.00-20.00) Ratio Glucose (70-110) mg/dL POC Glucose (mg/dL) 150 H (70-110) mg/dL Transferrin 182.0 L (204.0-354.0) mg/dL Ferritin 532.0 H (22.0-322.0) ng/mL Procalcitonin (0.02-0.09) ng/mL 05/28/23 Range/Units 06:42 WBC (4.50-10.00) X 10*3/uL RBC (4.40-5.60) X 10*6/uL Hgb (13.0-17.0) g/dL Hct (39.6-50.0) % MCV (80.0-97.0) FL MCH (27.0-32.0) pg MCHC (32.0-37.0) g/dL RDW (11.5-14.5) % Immature Gran # (0.00-0.04) X 10*3/uL Neutrophils # (1.80-7.70) X 10*3/uL Lymphocytes # (0.90-5.00) X 10*3/uL Monocytes # (0-1.0) k/uL Eosinophils # (0.04-0.35) X 10*3/uL Potassium (3.5-5.5) mmol/L Chloride 112 H (98-107) mmol/L Carbon Dioxide 19 L (21.6-31.8) mmol/L Anion Gap (4.00-12.00) mmol/L BUN 48 H (9.0-27.0) mg/dL Creatinine 3.02 H (0.6-1.5) mg/dL Est GFR (CKD-EPI) (>=60) BUN/Creatinine Ratio (12.00-20.00) Ratio Glucose 108 H (70-110) mg/dL POC Glucose (mg/dL) (70-110) mg/dL Transferrin (204.0-354.0) mg/dL Ferritin (22.0-322.0) ng/mL Procalcitonin (0.02-0.09) ng/mL
--- NOTE | 2023-05-28 13:17 | P.PN ---
Subjective Progress Note Date: 05/28/23 Principal diagnosis: Renal failure. This is a 63-year-old male patient with a history of bladder mass and left hydronephrosis. He had undergone a TURP and attempted left-sided stent insertion by urology on February 06, 2023. CAT scan of the chest abdomen pelvis from April 2023 revealed findings of progression of disease with left lateral bladder wall eccentric thickening with partial obstruction of left ureter and mild left hydronephrosis. New segment 3 liver lesion concerning metastatic disease. Right lower lobe and increasing size of the left lower lobe pulmonary nodules. Increased retroperitoneal lymph node at the level of the left kidney and left pelvis at sidewall nodes. Indeterminate right inferior pubic ramus 4 mm sclerotic focus. Follow-up imaging for osseous metastatic disease. He had undergone his first treatment for the bladder cancer on May 23, 2023. Yesterday he was seen by Dr. Hankins who referred him here for CAT scan to rule out pulmonary embolism due to his complaints of shortness of breath. Ever, he was find to have significant elevation in his creatinine at 6.82. He did undergo ventilation/perfusion study instead revealed low evidence for pulmonary embolism. He is currently on a heparin drip. X-ray revealed no acute car diopulmonary process. Evidence of COPD. White count 9.0. Hemoglobin 9.7. Platelets 263. Sodium 136. Potassium 5.4. Bicarb 14. BUN 49. Creatinine 6.3. Glucose 202. Urinalysis with large blood, greater than 182 RBCs. Viral screen negative. The patient was a heavy smoker and drinker for over 40 years however quit smoking and drinking in January 2023. He is seen today in consultation on the regular medical floor. He is currently resting in bed. Awake and alert in no acute distress. He is quite anxious and nervous. He is somewhat of a poor historian. He states he had been taking a lot of ibuprofen due to the pain in his bladder area and down his left leg. The patient is seen today May 27, 2023 in follow-up on the regular medical floor. He is currently sitting up in bed. Awake and alert in no acute distress. He is maintaining good O2 saturation in the 90s on room air. CT scan of the chest without contrast revealed minimal airspace opacity in the lung bases. Trace bilateral pleural effusions and interlobular septal thickening. No evidence for pulmonary fibrosis. Scattered new pulmonary nodules correlate for infectious/inflammatory process. Renal ultrasound does reveal moderate left and mild right hydronephrosis. Bladder wall mass as seen on previous CT. white count 21.2. Hemoglobin 9.6. Platelets 331. Sodium 138. Potassium 5.9. Bicarb 13. BUN 57. Creatinine 6.4. Glucose 141. Procalcitonin was 0.31. He remains on DuoNeb inhalations, Symbicort, Solu-Medrol. Progress note dated May 28, 2023. The patient is seen today on the general medical floor, room 361. The patient continues on IV heparin, and, amiodarone. The patient apparently developed atrial fibrillation with RVR, and was transferred from the [facility], down to the cardiac floor. He continues on oxygen at 2 L. Saturations are 91 to 93%. He is currently in atrial fibrillation, with rates of between 100 to 110 bpm. Lab data includes a white count 21.3, hemoglobin 9, hematocrit 29, platelet count 327,000. PTT is 28.6. Sodium 142, potassium 4.7, chlorides 112, CO2 19, anion gap 11, BUN 48, creatinine 3.02. Glucose is 108. TSH is normal at 1.1. No recent chest x-ray to report. Objective - Vital Signs Vital signs: Vital Signs Temp 98.1 F 05/28/23 08:36 Pulse 144 H 05/28/23 08:36 Resp 24 05/28/23 08:36 BP 130/80 05/28/23 08:36 Pulse Ox 92 L 05/28/23 08:36 FiO2 Intake & Output 05/27/23 05/28/23 05/28/23 18:59 06:59 18:59 Intake Total 285.712 Output Total 250 200 350 Balance -250 -200 -64.288 Weight 63.957 kg Intake: IV 10 Invasive Line 3 10 Intake, IV Titration 95.712 Amount Diltiazem 125 mg In 38.917 Sodium Chloride 0.9% 100 ml @ 10 MG/HR 10 mls/hr IV .[id number] SUGAR Rx#: [id number] Heparin Sod,Pork in 0.45% 56.795 NaCl 25,000 unit In 0.45 % NaCl 1 250ml.bag @ 12 UNITS/KG/HR 7.675 mls/hr IV .Q24H SUGAR Rx#: [id number] Oral 180 Output: Urine 250 200 350 Other: Voiding Method Toilet Toilet # Voids 3 3 1 - Exam No acute distress, oriented 3. Currently on 2 L. No conversational dyspnea or use of accessory muscles. HEENT examination is grossly unremarkable. Mucous membranes are moist. No oral lesions. Neck supple. Full range of motion. No adenopathy thyromegaly or neck vein distention. Cardiovascular examination reveals an irregular and rhythm rate. S1-S2 normal. No S3 or S4. No discernible murmur noted. Heart rate 110 bpm. Lungs reveal scattered bibasilar rhonchi and wheezes. Minimal basilar crackles. Breath sounds equal bilaterally. 2 L saturation is 92%. Abdomen soft bowel sounds are heard. No masses or tenderness. Extremities are intact. No cyanosis clubbing or edema. Skin is without rash or lesion. Neurologic examination is brief but nonfocal. - Labs CBC & Chem 7: 05/28/23 06:42 05/28/23 06:42 Labs: Abnormal Lab Results - Last 24 Hours (Table) 05/27/23 05/27/23 05/28/23 Range/Units 05:59 10:51 00:43 WBC 22.3 H (3.8-10.6) k/uL RBC 4.14 L (4.30-5.90) m/uL Hgb 9.7 L D (13.0-17.5) gm/dL Hct 31.5 L (39.0-53.0) % MCV 76.1 L (80.0-100.0) fL MCH 23.5 L (25.0-35.0) pg MCHC 30.9 L (31.0-37.0) g/dL RDW (11.5-14.5) % Immature Gran # 0.15 H (0.00-0.04) X 10*3/uL Neutrophils # 20.11 H 19.9 H (1.80-7.70) X 10*3/uL Lymphocytes # 0.36 L 0.7 L (0.90-5.00) X 10*3/uL Monocytes # 1.4 H (0-1.0) k/uL Eosinophils # 0 L (0.04-0.35) X 10*3/uL Chloride (98-107) mmol/L Carbon Dioxide (22-30) mmol/L BUN (9-20) mg/dL Creatinine (0.66-1.25) mg/dL Glucose (74-99) mg/dL Transferrin 182.0 L (204.0-354.0) mg/dL Ferritin 532.0 H (22.0-322.0) ng/mL 05/28/23 05/28/23 Range/Units 06:42 06:42 WBC 21.32 H (3.8-10.6) k/uL RBC 3.83 L (4.30-5.90) m/uL Hgb 9.0 L (13.0-17.5) gm/dL Hct 28.6 L (39.0-53.0) % MCV 74.7 L (80.0-100.0) fL MCH 23.5 L (25.0-35.0) pg MCHC 31.5 L (31.0-37.0) g/dL RDW 15.6 H (11.5-14.5) % Immature Gran # 0.14 H (0.00-0.04) X 10*3/uL Neutrophils # 18.55 H (1.80-7.70) X 10*3/uL Lymphocytes # 0.86 L (0.90-5.00) X 10*3/uL Monocytes # 1.57 H (0-1.0) k/uL Eosinophils # (0.04-0.35) X 10*3/uL Chloride 112 H (98-107) mmol/L Carbon Dioxide 19 L (22-30) mmol/L BUN 48 H (9-20) mg/dL Creatinine 3.02 H (0.66-1.25) mg/dL Glucose 108 H (74-99) mg/dL Transferrin (204.0-354.0) mg/dL Ferritin (22.0-322.0) ng/mL Assessment and Plan Assessment: Shortness of breath possibly related to an acute exacerbation of chronic obstructive pulmonary disease. New onset atrial fibrillation with RVR. Acute kidney injury, presenting creatinine greater than 6.0 secondary to obstructive uropathy. Received first treatment for metastatic bladder cancer on 05/23/2023. Former heavy smoker quit in January 2023. Former heavy drinker quit in January 2023. Anxiety. Hypertension. Plan: Plan dated May 28, 2023. The patient developed atrial fibrillation with RVR. The patient was transferred down to the cardiac floor. She is currently on an amiodarone bolus, and receiving IV heparin. 2 L saturations are 91% to 92%. The patient is currently in atrial fibrillation with rates of about 110 bpm. Labs, x-rays, medications are reviewed. The patient's overall prognosis remains guarded, given his history of metastatic bladder cancer. We will continue to follow make recommendations along the way. Time with Patient: Less than 30
--- NOTE | 2023-05-28 16:11 | P.PN ---
Subjective Progress Note Date: 05/28/23 Principal diagnosis: Acute renal failure. Urothelial carcinoma on immunotherapy. In follow-up today patient reports he is not feeling any sensation of palpitations in the chest. Maybe some mild shortness of breath. No fevers, nausea, vomiting, acute changes in bowel or bladder habits. Objective - Vital Signs Vital signs: Vital Signs Temp 97.8 F 05/28/23 12:15 Pulse 120 H 05/28/23 12:15 Resp 20 05/28/23 12:15 BP 117/73 05/28/23 12:15 Pulse Ox 90 L 05/28/23 12:15 FiO2 Intake & Output 05/27/23 05/28/23 05/28/23 18:59 06:59 18:59 Intake Total 285.712 Output Total 250 200 350 Balance -250 -200 -64.288 Weight 63.957 kg Intake: IV 10 Invasive Line 3 10 Intake, IV Titration 95.712 Amount Diltiazem 125 mg In 38.917 Sodium Chloride 0.9% 100 ml @ 10 MG/HR 10 mls/hr IV .[id number] SUGAR Rx#: [id number] Heparin Sod,Pork in 0.45% 56.795 NaCl 25,000 unit In 0.45 % NaCl 1 250ml.bag @ 12 UNITS/KG/HR 7.675 mls/hr IV .Q24H SUGAR Rx#: [id number] Oral 180 Output: Urine 250 200 350 Other: Voiding Method Toilet Toilet # Voids 3 3 1 - Constitutional General appearance: Present: cooperative, no acute distress, thin - EENT Eyes: Present: anicteric sclerae, EOMI ENT: Present: hearing grossly normal - Respiratory Details: Respirations even and unlabored at rest - Cardiovascular Details: Radial pulse 2+, regular rhythm - Neurologic Neurologic: Present: CNII-XII intact (Grossly) - Musculoskeletal Musculoskeletal: Present: generalized weakness - Psychiatric Psychiatric: Present: A&O x's 3, appropriate affect, intact judgment & insight - Labs CBC & Chem 7: 05/28/23 06:42 05/28/23 06:42 Labs: Abnormal Lab Results - Last 24 Hours (Table) 05/27/23 05/28/23 05/28/23 Range/Units 10:51 00:43 06:42 WBC 22.3 H (3.8-10.6) k/uL RBC 4.14 L (4.30-5.90) m/uL Hgb 9.7 L D (13.0-17.5) gm/dL Hct 31.5 L (39.0-53.0) % MCV 76.1 L (80.0-100.0) fL MCH 23.5 L (25.0-35.0) pg MCHC 30.9 L (31.0-37.0) g/dL RDW (11.5-14.5) % Immature Gran # (0.00-0.04) X 10*3/uL Neutrophils # 19.9 H (1.3-7.7) k/uL Lymphocytes # 0.7 L (1.0-4.8) k/uL Monocytes # 1.4 H (0-1.0) k/uL APTT (22.0-30.0) sec Chloride 112 H (98-107) mmol/L Carbon Dioxide 19 L (22-30) mmol/L BUN 48 H (9-20) mg/dL Creatinine 3.02 H (0.66-1.25) mg/dL Glucose 108 H (74-99) mg/dL Transferrin 182.0 L (204.0-354.0) mg/dL Ferritin 532.0 H (22.0-322.0) ng/mL 05/28/23 05/28/23 Range/Units 06:42 14:53 WBC 21.32 H (3.8-10.6) k/uL RBC 3.83 L (4.30-5.90) m/uL Hgb 9.0 L (13.0-17.5) gm/dL Hct 28.6 L (39.0-53.0) % MCV 74.7 L (80.0-100.0) fL MCH 23.5 L (25.0-35.0) pg MCHC 31.5 L (31.0-37.0) g/dL RDW 15.6 H (11.5-14.5) % Immature Gran # 0.14 H (0.00-0.04) X 10*3/uL Neutrophils # 18.55 H (1.3-7.7) k/uL Lymphocytes # 0.86 L (1.0-4.8) k/uL Monocytes # 1.57 H (0-1.0) k/uL APTT 31.3 H (22.0-30.0) sec Chloride (98-107) mmol/L Carbon Dioxide (22-30) mmol/L BUN (9-20) mg/dL Creatinine (0.66-1.25) mg/dL Glucose (74-99) mg/dL Transferrin (204.0-354.0) mg/dL Ferritin (22.0-322.0) ng/mL Assessment and Plan (1) Acute exacerbation of chronic obstructive pulmonary disease Current Visit: Yes Status: Acute Priority: High Code(s): J44.1 - CHRONIC OBSTRUCTIVE PULMONARY DISEASE W (ACUTE) EXACERBATION SNOMED Code(s): 476997255 (2) Acute renal failure Current Visit: Yes Status: Acute Priority: High Code(s): N17.9 - ACUTE KIDNEY FAILURE, UNSPECIFIED SNOMED Code(s): 21622204 (3) Bladder cancer Current Visit: Yes Status: Acute Priority: High Code(s): C67.9 - MALIGNANT NEOPLASM OF BLADDER, UNSPECIFIED SNOMED Code(s): 723266145 Plan: A-fib with RVR -Cardiology has been consulted and is seeing patient -Patient is currently on a heparin drip. COPD exacerbation -Pulmonary is following. -Pt on treatment for the same Acute renal failure -There was discussion about possible nephrostomy tubes, felt possible ureteral obstruction from disease. Creatinine has improved so, no plans for the same at this time -Nephrology following -Urothelial carcinoma -High-resolution CT results reviewed with the patient, no evidence of pneumonitis. -Plan will be to resume immunotherapy once patient's current condition is treated to resolution and he is physically adequately recovered. Doctor attests: I performed a history and physical examination of this patient, developed impression and plan of care. Discussed with dictator. I agree with dictators note, documented as a scribe.
[2023-05-28 16:45] LABS: Glucose,Whole Blood 170 mg/dL (70-110)
--- NOTE | 2023-05-28 17:59 | P.PN ---
Subjective Progress Note Date: 05/28/23 Principal diagnosis: Renal failure secondary to bilateral hydronephrosis The patient is a 63-year-old white male with metastatic muscle invasive bladder cancer. This has caused bilateral hydronephrosis with resulting renal failure. He reports minimal hematuria and denies pain. Objective - Vital Signs Vital signs: Vital Signs Temp 98.1 F 05/28/23 08:36 Pulse 144 H 05/28/23 08:36 Resp 24 05/28/23 08:36 BP 130/80 05/28/23 08:36 Pulse Ox 92 L 05/28/23 08:36 FiO2 Intake & Output 05/27/23 05/28/23 05/28/23 18:59 06:59 18:59 Output Total 250 200 Balance -250 -200 Output: Urine 250 200 Other: Voiding Method Toilet # Voids 3 3 1 - Constitutional General appearance: Present: average body habitus, cooperative, no acute distress - Psychiatric Psychiatric: Present: A&O x's 3 - Labs CBC & Chem 7: 05/28/23 06:42 05/28/23 06:42 Labs: Abnormal Lab Results - Last 24 Hours (Table) 05/26/23 05/27/23 05/27/23 Range/Units 15:23 05:59 05:59 WBC 21.26 H (4.50-10.00) X 10*3/uL RBC 4.07 L (4.40-5.60) X 10*6/uL Hgb 9.6 L (13.0-17.0) g/dL Hct 30.7 L (39.6-50.0) % MCV 75.4 L (80.0-97.0) FL MCH 23.6 L (27.0-32.0) pg MCHC 31.3 L (32.0-37.0) g/dL RDW 15.3 H (11.5-14.5) % Immature Gran # 0.15 H (0.00-0.04) X 10*3/uL Neutrophils # 20.11 H (1.80-7.70) X 10*3/uL Lymphocytes # 0.36 L (0.90-5.00) X 10*3/uL Monocytes # (0-1.0) k/uL Eosinophils # 0 L (0.04-0.35) X 10*3/uL Potassium 5.9 H (3.5-5.5) mmol/L Chloride (98-107) mmol/L Carbon Dioxide 13.2 L (21.6-31.8) mmol/L Anion Gap 18.80 H (4.00-12.00) mmol/L BUN 57.3 H (9.0-27.0) mg/dL Creatinine 6.4 H (0.6-1.5) mg/dL Est GFR (CKD-EPI) 9 L (>=60) BUN/Creatinine Ratio 8.95 L (12.00-20.00) Ratio Glucose 141 H (70-110) mg/dL POC Glucose (mg/dL) (70-110) mg/dL Transferrin (204.0-354.0) mg/dL Ferritin (22.0-322.0) ng/mL Procalcitonin 0.31 H (0.02-0.09) ng/mL 05/27/23 05/27/23 05/28/23 Range/Units 10:51 12:06 00:43 WBC 22.3 H (4.50-10.00) X 10*3/uL RBC 4.14 L (4.40-5.60) X 10*6/uL Hgb 9.7 L D (13.0-17.0) g/dL Hct 31.5 L (39.6-50.0) % MCV 76.1 L (80.0-97.0) FL MCH 23.5 L (27.0-32.0) pg MCHC 30.9 L (32.0-37.0) g/dL RDW (11.5-14.5) % Immature Gran # (0.00-0.04) X 10*3/uL Neutrophils # 19.9 H (1.80-7.70) X 10*3/uL Lymphocytes # 0.7 L (0.90-5.00) X 10*3/uL Monocytes # 1.4 H (0-1.0) k/uL Eosinophils # (0.04-0.35) X 10*3/uL Potassium (3.5-5.5) mmol/L Chloride (98-107) mmol/L Carbon Dioxide (21.6-31.8) mmol/L Anion Gap (4.00-12.00) mmol/L BUN (9.0-27.0) mg/dL Creatinine (0.6-1.5) mg/dL Est GFR (CKD-EPI) (>=60) BUN/Creatinine Ratio (12.00-20.00) Ratio Glucose (70-110) mg/dL POC Glucose (mg/dL) 150 H (70-110) mg/dL Transferrin 182.0 L (204.0-354.0) mg/dL Ferritin 532.0 H (22.0-322.0) ng/mL Procalcitonin (0.02-0.09) ng/mL 05/28/23 Range/Units 06:42 WBC (4.50-10.00) X 10*3/uL RBC (4.40-5.60) X 10*6/uL Hgb (13.0-17.0) g/dL Hct (39.6-50.0) % MCV (80.0-97.0) FL MCH (27.0-32.0) pg MCHC (32.0-37.0) g/dL RDW (11.5-14.5) % Immature Gran # (0.00-0.04) X 10*3/uL Neutrophils # (1.80-7.70) X 10*3/uL Lymphocytes # (0.90-5.00) X 10*3/uL Monocytes # (0-1.0) k/uL Eosinophils # (0.04-0.35) X 10*3/uL Potassium (3.5-5.5) mmol/L Chloride 112 H (98-107) mmol/L Carbon Dioxide 19 L (21.6-31.8) mmol/L Anion Gap (4.00-12.00) mmol/L BUN 48 H (9.0-27.0) mg/dL Creatinine 3.02 H (0.6-1.5) mg/dL Est GFR (CKD-EPI) (>=60) BUN/Creatinine Ratio (12.00-20.00) Ratio Glucose 108 H (70-110) mg/dL POC Glucose (mg/dL) (70-110) mg/dL Transferrin (204.0-354.0) mg/dL Ferritin (22.0-322.0) ng/mL Procalcitonin (0.02-0.09) ng/mL - Imaging and Cardiology CT scan - abdomen: report reviewed, image reviewed Assessment and Plan (1) Acquired hydronephrosis Current Visit: Yes Status: Acute Code(s): N13.30 - UNSPECIFIED HYDRONEPHROSIS SNOMED Code(s): 466101291 Plan: Serum creatinine level is significantly improved as a result of IV hydration. Renal function will continue to be monitored. However, it is my overall impression that he would benefit from nephrostomy tube placement. Unfortunately, this would likely need to be done at an outside institution.
[2023-05-28] MEDS: AMIODARONE 450 MG in DEXTROSE 5% IN WATER 250 ML IV SCH (18:34)
[2023-05-28 21:24] LABS: Glucose,Whole Blood 162 mg/dL (70-110)
[2023-05-28] MEDS: INSULIN ASPART (NovoLOG) 100 UNIT/ML VIAL SQ SCH (21:28)
[2023-05-29 04:52] LABS: Glucose,Whole Blood 131 mg/dL (70-110)
[2023-05-29] MEDS: FUROSEMIDE 10 MG/ML 4 ML VIAL IV STA ×2 (05:06→18:13)
[2023-05-29 05:18] LABS: Basophils % (A) 0 %; Eosinophils # (A) 0.2 k/uL (0-0.7); Eosinophils % (A) 1 %; HCT 27.5 % (39.0-53.0); HGB 8.8 gm/dL (13.0-17.5); Lymphocytes # (A) 0.8 k/uL (1.0-4.8); Lymphocytes % (A) 6 %; MCH 23.8 pg (25.0-35.0); MCHC 31.8 g/dL (31.0-37.0); MCV 74.7 fL (80.0-100.0); Mean Platelet Volume 9.8; Microcytosis Slight; Monocytes # (A) 0.8 k/uL (0-1.0); Monocytes % (A) 5 %; Neutrophils # (A) 12.8 k/uL (1.3-7.7); Neutrophils % (A) 87 %; Platelet Count 239 k/uL (150-450); RBC 3.68 m/uL (4.30-5.90); RDW 14.6 % (11.5-15.5); WBC 14.7 k/uL (3.8-10.6)
[2023-05-29 05:21] LABS: ALT 285 U/L (4-49); AST 156 U/L (17-59); African American GFR (CKD) 49 (>60 ml/min/1.73 sqM); Albumin 3.3 g/dL (3.5-5.0); Alkaline Phosphatase 181 U/L (38-126); Anion Gap 3 mmol/L; Blood Urea Nitrogen 33 mg/dL (9-20); Calcium 8.5 mg/dL (8.4-10.2); Carbon Dioxide 31 mmol/L (22-30); Chloride 105 mmol/L (98-107); Glucose 117 mg/dL (74-99); Non-African American GFR(CKD) 43 (>60 ml/min/1.73 sqM); Potassium 3.7 mmol/L (3.5-5.1); Sodium 139 mmol/L (137-145); Total Bilirubin 0.7 mg/dL (0.2-1.3); Total Protein 5.6 g/dL (6.3-8.2)
[2023-05-29 05:24] LABS: INR 0.9 (<1.2); Prothrombin Time 10.2 sec (10.0-12.5)
[2023-05-29 05:30] LABS: NT-Pro-B-Type Natriuretic Pept 9690 pg/mL
[2023-05-29 06:00] LABS: Allen Test Performed? Yes
[2023-05-29 06:09] LABS: ABG Base Excess 9.1 mmol/L; ABG HCO3 32 mmol/L (21-25); ABG Oxygen Saturation 92.7 % (94-97); ABG PCO2 41 mmHg (35-45); ABG PO2 66 mmHg (83-108); ABG TCO2 34 mmol/L (19-24)
[2023-05-29 06:22] LABS: Glucose,Whole Blood 136 mg/dL (70-110)
[2023-05-29] MEDS: DILTIAZEM 125 MG in SODIUM CHLORIDE 0.9% 100 ML IV SCH (06:34)
[2023-05-29] MEDS: LORazepam 2 MG/ML INJ IV STA (06:35)
--- NOTE | 2023-05-29 06:37 | XR ---
EXAM: XR Chest, 1 View CLINICAL HISTORY: Resp distress TECHNIQUE: Frontal view of the chest. COMPARISON: 05/25/23. FINDINGS: Lungs: Mild diffuse interstitial and airspace opacities throughout both lungs. Pleural space: Unremarkable. Mediastinum: Unremarkable. Bones/joints: No acute findings. IMPRESSION: Suspect mild pulmonary edema and less likely pneumonia.
[2023-05-29] MEDS: PANTOPRAZOLE 40 MG/10 ML VIAL IVP SCH (08:34)
[2023-05-29] MEDS: SODIUM CHLORIDE 0.9% 500 ML 500 ML IV SCH (09:00)
--- NOTE | 2023-05-29 10:12 | P.PN ---
Subjective Progress Note Date: 05/29/23 This is a 63-year-old male patient with a history of bladder mass and left hydronephrosis. He had undergone a TURP and attempted left-sided stent insertion by urology on February 06, 2023. CAT scan of the chest abdomen pelvis from April 2023 revealed findings of progression of disease with left lateral bladder wall eccentric thickening with partial obstruction of left ureter and mild left hydronephrosis. New segment 3 liver lesion concerning metastatic disease. Right lower lobe and increasing size of the left lower lobe pulmonary nodules. Increased retroperitoneal lymph node at the level of the left kidney and left pelvis at sidewall nodes. Indeterminate right inferior pubic ramus 4 mm sclerotic focus. Follow-up imaging for osseous metastatic disease. He had undergone his first treatment for the bladder cancer on May 23, 2023. Yesterday he was seen by Dr. Hankins who referred him here for CAT scan to rule out pulmonary embolism due to his complaints of shortness of breath. Ever, he was find to have significant elevation in his creatinine at 6.82. He did undergo ventilation/perfusion study instead revealed low evidence for pulmonary embolism. He is currently on a heparin drip. X-ray revealed no acute cardiopulmonary process. Evidence of COPD. White count 9.0. Hemoglobin 9.7. Platelets 263. Sodium 136. Potassium 5.4. Bicarb 14. BUN 49. Creatinine 6.3. Glucose 202. Urinalysis with large blood, greater than 182 RBCs. Viral screen negative. The patient was a heavy smoker and drinker for over 40 years however quit smoking and drinking in January 2023. He is seen today in consultation on the regular medical floor. He is currently resting in bed. Aw isabel and alert in no acute distress. He is quite anxious and nervous. He is somewhat of a poor historian. He states he had been taking a lot of ibuprofen due to the pain in his bladder area and down his left leg. The patient is seen today May 27, 2023 in follow-up on the regular medical floor. He is currently sitting up in bed. Awake and alert in no acute distress. He is maintaining good O2 saturation in the 90s on room air. CT scan of the chest without contrast revealed minimal airspace opacity in the lung bases. Trace bilateral pleural effusions and interlobular septal thickening. No evidence for pulmonary fibrosis. Scattered new pulmonary nodules correlate for infectious/inflammatory process. Renal ultrasound does reveal moderate left and mild right hydronephrosis. Bladder wall mass as seen on previous CT. white count 21.2. Hemoglobin 9.6. Platelets 331. Sodium 138. Potassium 5.9. Bicarb 13. BUN 57. Creatinine 6.4. Glucose 141. Procalcitonin was 0.31. He remains on DuoNeb inhalations, Symbicort, Solu-Medrol. Progress note dated May 28, 2023. The patient is seen today on the general medical floor, room 361. The patient continues on IV heparin, and, amiodarone. The patient apparently developed atrial fibrillation with RVR, and was transferred from the [facility], down to the cardiac floor. He continues on oxygen at 2 L. Saturations are 91 to 93%. He is currently in atrial fibrillation, with rates of between 100 to 110 bpm. Lab data includes a white count 21.3, hemoglobin 9, hematocrit 29, platelet count 327,000. PTT is 28.6. Sodium 142, potassium 4.7, chlorides 112, CO2 19, anion gap 11, BUN 48, creatinine 3.02. Glucose is 108. TSH is normal at 1.1. No recent chest x-ray to report. The patient is seen today February the intensive care unit. He was transferred here following an episode of atrial fibrillation with rapid ventricular response and hypoxemia. He was placed on BiPAP 12/5 and 60% FiO2. He had received Lasix 40 mg IVP x 1. He is now on Cardizem drip at 15 mg/hr. Amiodarone 0.05 mg/min. Currently on a heparin drip. Remains in atrial fibrillation currently. Controlled ventricular response. 7.5. White count 14.7. Hemoglobin 8.8. Platelets 239. Sodium 139. Potassium 3.7. Bicarb 31. BUN 33. Creatinine 1.70. Glucose 117. AST 156. ALT 285. proBNP 9690. Chest x-ray does revealed mild pulmonary edema. Objective - Vital Signs Vital signs: Vital Signs Temp 98.4 F 05/29/23 08:00 Pulse 111 H 05/29/23 09:00 Resp 20 05/29/23 09:00 BP 128/81 05/29/23 09:00 Pulse Ox 95 05/29/23 09:00 FiO2 60 05/29/23 08:25 Intake & Output 05/28/23 05/29/23 05/29/23 18:59 06:59 18:59 Intake Total 555.892 168.971 120 Output Total 950 1414 200 Balance -394.108 -1245.029 -80 Weight 63.957 kg 73.4 kg Intake: IV 10 10 20 0.9 10 Invasive Line 3 10 Sodium Chloride 0.9% 500 20 ml 500 ml @ 20 mls/hr IV .Q24H [facility] Rx#:[id number] Intake, IV Titration 185.892 158.971 Amount Diltiazem 125 mg In 60.500 Sodium Chloride 0.9% 100 ml @ 10 MG/HR 10 mls/hr IV .[id number] [facility] Rx#: [id number] Diltiazem 125 mg In 0 Sodium Chloride 0.9% 100 ml @ 10 MG/HR 10 mls/hr IV .[id number] [facility] Rx#: [id number] Heparin Sod,Pork in 0.45% 125.392 158.971 NaCl 25,000 unit In 0.45 % NaCl 1 250ml.bag @ 12 UNITS/KG/HR 7.675 mls/hr IV .Q24H [facility] Rx#: [id number] Oral 360 100 Output: Urine 950 1350 200 Post Void Residual 64 Other: Voiding Method Toilet External Catheter External Catheter # Voids 1 1 # Bowel Movements 1 - Exam GENERAL EXAM: Alert, 63-year-old male, BiPAP 12/5 and 60% FiO2, in no apparent distress. HEAD: Normocephalic. EYES: Normal reaction of pupils, equal size. NOSE: Clear with pink turbinates. THROAT: No erythema or exudates. NECK: No masses, no JVD. CHEST: No chest wall deformity. LUNGS: Equal air entry with no crackles, wheeze, rhonchi or dullness. Di minished. CVS: S1 and S2 normal with no audible murmur, irregular rhythm. ABDOMEN: No hepatosplenomegaly, normal bowel sounds, no guarding or rigidity. SPINE: No scoliosis or deformity SKIN: No rashes CENTRAL NERVOUS SYSTEM: No focal deficits, tone is normal in all 4 extremities. EXTREMITIES: There is no peripheral edema. No clubbing, no cyanosis. Peripheral pulses are intact. - Labs CBC & Chem 7: 05/29/23 04:56 05/29/23 04:51 Labs: Abnormal Lab Results - Last 24 Hours (Table) 05/28/23 05/28/23 05/28/23 Range/Units 06:42 14:53 16:42 WBC 21.32 H (4.50-10.00) X 10*3/uL RBC 3.83 L (4.40-5.60) X 10*6/uL Hgb 9.0 L (13.0-17.0) g/dL Hct 28.6 L (39.6-50.0) % MCV 74.7 L (80.0-97.0) FL MCH 23.5 L (27.0-32.0) pg MCHC 31.5 L (32.0-37.0) g/dL RDW 15.6 H (11.5-14.5) % Immature Gran # 0.14 H (0.00-0.04) X 10*3/uL Neutrophils # 18.55 H (1.80-7.70) X 10*3/uL Lymphocytes # 0.86 L (0.90-5.00) X 10*3/uL Monocytes # 1.57 H (0.20-1.00) X 10*3/uL APTT 31.3 H (22.0-30.0) sec ABG pH (7.35-7.45) ABG pO2 (83-108) mmHg ABG HCO3 (21-25) mmol/L ABG Total CO2 (19-24) mmol/L ABG O2 Saturation (94-97) % Carbon Dioxide (22-30) mmol/L BUN (9-20) mg/dL Creatinine (0.66-1.25) mg/dL Glucose (74-99) mg/dL POC Glucose (mg/dL) 170 H (70-110) mg/dL AST (17-59) U/L ALT (4-49) U/L Alkaline Phosphatase (38-126) U/L Total Protein (6.3-8.2) g/dL Albumin (3.5-5.0) g/dL 05/28/23 05/28/23 05/29/23 Range/Units 21:23 21:49 04:38 WBC (4.50-10.00) X 10*3/uL RBC (4.40-5.60) X 10*6/uL Hgb (13.0-17.0) g/dL Hct (39.6-50.0) % MCV (80.0-97.0) FL MCH (27.0-32.0) pg MCHC (32.0-37.0) g/dL RDW (11.5-14.5) % Immature Gran # (0.00-0.04) X 10*3/uL Neutrophils # (1.80-7.70) X 10*3/uL Lymphocytes # (0.90-5.00) X 10*3/uL Monocytes # (0.20-1.00) X 10*3/uL APTT 42.3 H (22.0-30.0) sec ABG pH (7.35-7.45) ABG pO2 (83-108) mmHg ABG HCO3 (21-25) mmol/L ABG Total CO2 (19-24) mmol/L ABG O2 Saturation (94-97) % Carbon Dioxide (22-30) mmol/L BUN (9-20) mg/dL Creatinine (0.66-1.25) mg/dL Glucose (74-99) mg/dL POC Glucose (mg/dL) 162 H 131 H (70-110) mg/dL AST (17-59) U/L ALT (4-49) U/L Alkaline Phosphatase (38-126) U/L Total Protein (6.3-8.2) g/dL Albumin (3.5-5.0) g/dL 05/29/23 05/29/23 05/29/23 Range/Units 04:51 04:55 04:56 WBC 14.7 H (4.50-10.00) X 10*3/uL RBC 3.68 L (4.40-5.60) X 10*6/uL Hgb 8.8 L (13.0-17.0) g/dL Hct 27.5 L (39.6-50.0) % MCV 74.7 L (80.0-97.0) FL MCH 23.8 L (27.0-32.0) pg MCHC (32.0-37.0) g/dL RDW (11.5-14.5) % Immature Gran # (0.00-0.04) X 10*3/uL Neutrophils # 12.8 H (1.80-7.70) X 10*3/uL Lymphocytes # 0.8 L (0.90-5.00) X 10*3/uL Monocytes # (0.20-1.00) X 10*3/uL APTT 37.0 H (22.0-30.0) sec ABG pH (7.35-7.45) ABG pO2 (83-108) mmHg ABG HCO3 (21-25) mmol/L ABG Total CO2 (19-24) mmol/L ABG O2 Saturation (94-97) % Carbon Dioxide 31 H (22-30) mmol/L BUN 33 H (9-20) mg/dL Creatinine 1.70 H (0.66-1.25) mg/dL Glucose 117 H (74-99) mg/dL POC Glucose (mg/dL) (70-110) mg/dL AST 156 H (17-59) U/L ALT 285 H (4-49) U/L Alkaline Phosphatase 181 H (38-126) U/L Total Protein 5.6 L (6.3-8.2) g/dL Albumin 3.3 L (3.5-5.0) g/dL 05/29/23 05/29/23 Range/Units 05:59 06:21 WBC (4.50-10.00) X 10*3/uL RBC (4.40-5.60) X 10*6/uL Hgb (13.0-17.0) g/dL Hct (39.6-50.0) % MCV (80.0-97.0) FL MCH (27.0-32.0) pg MCHC (32.0-37.0) g/dL RDW (11.5-14.5) % Immature Gran # (0.00-0.04) X 10*3/uL Neutrophils # (1.80-7.70) X 10*3/uL Lymphocytes # (0.90-5.00) X 10*3/uL Monocytes # (0.20-1.00) X 10*3/uL APTT (22.0-30.0) sec ABG pH 7.50 H (7.35-7.45) ABG pO2 66 L (83-108) mmHg ABG HCO3 32 H (21-25) mmol/L ABG Total CO2 34 H (19-24) mmol/L ABG O2 Saturation 92.7 L (94-97) % Carbon Dioxide (22-30) mmol/L BUN (9-20) mg/dL Creatinine (0.66-1.25) mg/dL Glucose (74-99) mg/dL POC Glucose (mg/dL) 136 H (70-110) mg/dL AST (17-59) U/L ALT (4-49) U/L Alkaline Phosphatase (38-126) U/L Total Protein (6.3-8.2) g/dL Albumin (3.5-5.0) g/dL Assessment and Plan Assessment: Shortness of breath possibly related to an acute exacerbation of chronic obstructive pulmonary disease. Chest x-ray shows no acute pulmonary process. The patient is also quite anxious and hypertensive. VQ scan revealed low probability for pulmonary embolism. CT scan of the chest without contrast revealed minimal airspace opacity of the lung bases, trace bilateral pleural effusions, scattered new pulmonary nodules from -2023 correlate for infectious/inflammatory process. Atrial fibrillation with a rapid ventricular response Hypoxemic respiratory failure secondary to suspected fluid volume overload, congestive heart failure, echocardiogram pending Acute kidney injury, presenting creatinine greater than 6.0 secondary to obstructive uropathy and increased amounts of ibuprofen, improving and down to 1.70 Received first treatment for bladder cancer on 05/23/2023. Recent CT scan reveals findings of progression of disease with left lateral bladder wall eccentric thickening with partial obstruction of the left ureteral ureter and mild left hydronephrosis. Hydronephrosis is mildly progressed since January 2023. New segment 3 liver lesion concerning metastatic disease. Right lower lobe and increasing size of left lower lobe pulmonary nodules. Increase size of retroperitoneal lymph node at the level of the left kidney and left pelvic sidewall nodes. 4 mm sclerotic focus of the right inferior pubic ramus possible CS metastatic disease Former heavy smoker quit in January 2023 Former heavy drinker quit in January 2023 Anxiety Hypertension Plan: The patient was seen and evaluated Chest x-ray, ABG, labs and medications reviewed Continue bronchodilators, prednisone Currently on amiodarone, Cardizem drip Echocardiogram pending Currently on a heparin drip Titrate down the FiO2 as tolerated Continue to monitor closely in the intensive care unit We will continue to follow I have personally seen and examined the patient, performed the documentation and the assessment and plan as written. Number of minutes spent on the visit: 10.
[2023-05-29] MEDS ORDERED: Potassium Replacement Protocol 1 EACH MISC MISCELLANE PRN (10:19)
[2023-05-29] MEDS: METOPROLOL TARTRATE 50 MG TAB PO STA (10:29)
[2023-05-29 10:31] LABS: Basophils % (A) 0 %; Eosinophils # (A) 0.1 k/uL (0-0.7); Eosinophils % (A) 1 %; HCT 28.1 % (39.0-53.0); HGB 9.3 gm/dL (13.0-17.5); Lymphocytes # (A) 0.5 k/uL (1.0-4.8); Lymphocytes % (A) 4 %; MCH 24.8 pg (25.0-35.0); MCV 75.2 fL (80.0-100.0); Mean Platelet Volume 9.4; Microcytosis Slight; Monocytes # (A) 0.6 k/uL (0-1.0); Monocytes % (A) 4 %; Neutrophils # (A) 12.9 k/uL (1.3-7.7); Neutrophils % (A) 91 %; Platelet Count 214 k/uL (150-450); RBC 3.73 m/uL (4.30-5.90); RDW 14.8 % (11.5-15.5); WBC 14.2 k/uL (3.8-10.6)
[2023-05-29] MEDS: AMIODARONE 200 MG TAB PO SCH (10:31)
[2023-05-29] MEDS: POTASSIUM CHLORIDE 10 MEQ in WATER FOR INJECTION 1 100ML.BAG IVPB SCH (10:35)
--- NOTE | 2023-05-29 11:06 | P.PN ---
Subjective Patient remains short of breath, BiPAP mask He has A-fib with RVR despite IV amiodarone since yesterday although the heart rates are better now Yesterday given 300 mg of a bolus of amiodarone over 2 hours followed by IV infusion of amiodarone In addition beta-blockers were increased to 50 mg 3 times a day He was on IV Cardizem Today he remains in atrial fibrillation with RVR He is short of breath Breath sounds are reduced bilaterally Heart sounds are tachycardic White count is elevated at 14,000 Hemoglobin is 9.3, reduced pO2 66 Creatinine 1.7 Abnormal LFTs Impression A-fib with RVR Hypoxic respiratory failure Plan Switch to p.o. amiodarone 200 mg p.o. daily Increase to 100 mg 3 times a day of metoprolol to heart rate Continue IV Cardizem for now and will taper off slowly Rate control of atrial fibrillation Agree with IV Lasix 2D echo and Doppler study tomorrow Objective - Vital Signs Vital signs: Vital Signs Temp 98.4 F 05/29/23 08:00 Pulse 130 H 05/29/23 10:00 Resp 24 05/29/23 10:00 BP 126/91 05/29/23 10:00 Pulse Ox 91 L 05/29/23 10:00 FiO2 50 05/29/23 10:00 Intake & Output 05/28/23 05/29/23 05/29/23 18:59 06:59 18:59 Intake Total 555.892 168.971 240 Output Total 950 1414 300 Balance -394.108 -1245.029 -60 Weight 63.957 kg 73.4 kg Intake: IV 10 10 40 0.9 10 Invasive Line 3 10 Sodium Chloride 0.9% 500 40 ml 500 ml @ 20 mls/hr IV .Q24H [facility] Rx#:[id number] Intake, IV Titration 185.892 158.971 Amount Diltiazem 125 mg In 60.500 Sodium Chloride 0.9% 100 ml @ 10 MG/HR 10 mls/hr IV .[id number] [facility] Rx#: [id number] Diltiazem 125 mg In 0 Sodium Chloride 0.9% 100 ml @ 10 MG/HR 10 mls/hr IV .[id number] [facility] Rx#: [id number] Heparin Sod,Pork in 0.45% 125.392 158.971 NaCl 25,000 unit In 0.45 % NaCl 1 250ml.bag @ 12 UNITS/KG/HR 7.675 mls/hr IV .Q24H [facility] Rx#: [id number] Oral 360 200 Output: Urine 950 1350 300 Post Void Residual 64 Other: Voiding Method Toilet External Catheter External Catheter # Voids 1 1 # Bowel Movements 1 - Labs CBC & Chem 7: 05/29/23 09:35 05/29/23 04:51 Labs: Abnormal Lab Results - Last 24 Hours (Table) 05/28/23 05/28/23 05/28/23 Range/Units 06:42 14:53 16:42 WBC (3.8-10.6) k/uL RBC (4.30-5.90) m/uL Hgb (13.0-17.5) gm/dL Hct (39.0-53.0) % MCV (80.0-100.0) fL MCH (25.0-35.0) pg Immature Gran # 0.14 H (0.00-0.04) X 10*3/uL Neutrophils # 18.55 H (1.80-7.70) X 10*3/uL Lymphocytes # 0.86 L (0.90-5.00) X 10*3/uL Monocytes # 1.57 H (0.20-1.00) X 10*3/uL APTT 31.3 H (22.0-30.0) sec ABG pH (7.35-7.45) ABG pO2 (83-108) mmHg ABG HCO3 (21-25) mmol/L ABG Total CO2 (19-24) mmol/L ABG O2 Saturation (94-97) % Carbon Dioxide (22-30) mmol/L BUN (9-20) mg/dL Creatinine (0.66-1.25) mg/dL Glucose (74-99) mg/dL POC Glucose (mg/dL) 170 H (70-110) mg/dL AST (17-59) U/L ALT (4-49) U/L Alkaline Phosphatase (38-126) U/L Total Protein (6.3-8.2) g/dL Albumin (3.5-5.0) g/dL 05/28/23 05/28/23 05/29/23 Range/Units 21:23 21:49 04:38 WBC (3.8-10.6) k/uL RBC (4.30-5.90) m/uL Hgb (13.0-17.5) gm/dL Hct (39.0-53.0) % MCV (80.0-100.0) fL MCH (25.0-35.0) pg Immature Gran # (0.00-0.04) X 10*3/uL Neutrophils # (1.80-7.70) X 10*3/uL Lymphocytes # (0.90-5.00) X 10*3/uL Monocytes # (0.20-1.00) X 10*3/uL APTT 42.3 H (22.0-30.0) sec ABG pH (7.35-7.45) ABG pO2 (83-108) mmHg ABG HCO3 (21-25) mmol/L ABG Total CO2 (19-24) mmol/L ABG O2 Saturation (94-97) % Carbon Dioxide (22-30) mmol/L BUN (9-20) mg/dL Creatinine (0.66-1.25) mg/dL Glucose (74-99) mg/dL POC Glucose (mg/dL) 162 H 131 H (70-110) mg/dL AST (17-59) U/L ALT (4-49) U/L Alkaline Phosphatase (38-126) U/L Total Protein (6.3-8.2) g/dL Albumin (3.5-5.0) g/dL 05/29/23 05/29/23 05/29/23 Range/Units 04:51 04:55 04:56 WBC 14.7 H (3.8-10.6) k/uL RBC 3.68 L (4.30-5.90) m/uL Hgb 8.8 L (13.0-17.5) gm/dL Hct 27.5 L (39.0-53.0) % MCV 74.7 L (80.0-100.0) fL MCH 23.8 L (25.0-35.0) pg Immature Gran # (0.00-0.04) X 10*3/uL Neutrophils # 12.8 H (1.80-7.70) X 10*3/uL Lymphocytes # 0.8 L (0.90-5.00) X 10*3/uL Monocytes # (0.20-1.00) X 10*3/uL APTT 37.0 H (22.0-30.0) sec ABG pH (7.35-7.45) ABG pO2 (83-108) mmHg ABG HCO3 (21-25) mmol/L ABG Total CO2 (19-24) mmol/L ABG O2 Saturation (94-97) % Carbon Dioxide 31 H (22-30) mmol/L BUN 33 H (9-20) mg/dL Creatinine 1.70 H (0.66-1.25) mg/dL Glucose 117 H (74-99) mg/dL POC Glucose (mg/dL) (70-110) mg/dL AST 156 H (17-59) U/L ALT 285 H (4-49) U/L Alkaline Phosphatase 181 H (38-126) U/L Total Protein 5.6 L (6.3-8.2) g/dL Albumin 3.3 L (3.5-5.0) g/dL 05/29/23 05/29/23 05/29/23 Range/Units 05:59 06:21 09:35 WBC 14.2 H (3.8-10.6) k/uL RBC 3.73 L (4.30-5.90) m/uL Hgb 9.3 L (13.0-17.5) gm/dL Hct 28.1 L (39.0-53.0) % MCV 75.2 L (80.0-100.0) fL MCH 24.8 L (25.0-35.0) pg Immature Gran # (0.00-0.04) X 10*3/uL Neutrophils # 12.9 H (1.80-7.70) X 10*3/uL Lymphocytes # 0.5 L (0.90-5.00) X 10*3/uL Monocytes # (0.20-1.00) X 10*3/uL APTT (22.0-30.0) sec ABG pH 7.50 H (7.35-7.45) ABG pO2 66 L (83-108) mmHg ABG HCO3 32 H (21-25) mmol/L ABG Total CO2 34 H (19-24) mmol/L ABG O2 Saturation 92.7 L (94-97) % Carbon Dioxide (22-30) mmol/L BUN (9-20) mg/dL Creatinine (0.66-1.25) mg/dL Glucose (74-99) mg/dL POC Glucose (mg/dL) 136 H (70-110) mg/dL AST (17-59) U/L ALT (4-49) U/L Alkaline Phosphatase (38-126) U/L Total Protein (6.3-8.2) g/dL Albumin (3.5-5.0) g/dL 05/29/23 Range/Units 09:35 WBC (3.8-10.6) k/uL RBC (4.30-5.90) m/uL Hgb (13.0-17.5) gm/dL Hct (39.0-53.0) % MCV (80.0-100.0) fL MCH (25.0-35.0) pg Immature Gran # (0.00-0.04) X 10*3/uL Neutrophils # (1.80-7.70) X 10*3/uL Lymphocytes # (0.90-5.00) X 10*3/uL Monocytes # (0.20-1.00) X 10*3/uL APTT 35.8 H (22.0-30.0) sec ABG pH (7.35-7.45) ABG pO2 (83-108) mmHg ABG HCO3 (21-25) mmol/L ABG Total CO2 (19-24) mmol/L ABG O2 Saturation (94-97) % Carbon Dioxide (22-30) mmol/L BUN (9-20) mg/dL Creatinine (0.66-1.25) mg/dL Glucose (74-99) mg/dL POC Glucose (mg/dL) (70-110) mg/dL AST (17-59) U/L ALT (4-49) U/L Alkaline Phosphatase (38-126) U/L Total Protein (6.3-8.2) g/dL Albumin (3.5-5.0) g/dL
[2023-05-29 11:58] LABS: Glucose,Whole Blood 120 mg/dL (70-110)
[2023-05-29] MEDS: METOPROLOL TARTRATE 50 MG TAB PO SCH (15:28)
--- NOTE | 2023-05-29 16:32 | P.PN ---
Subjective Patient is seen for follow-up for acute kidney injury. Renal function has been improving. Patient was transferred to the ICU due to shortness of breath and hypoxia. Status post IV Lasix x 1 early this morning. Bicarb drip is now discontinued. Patient remains on amiodarone drip and Cardizem drip for A-fib with RVR. No significant shortness of breath currently. No complaints of chest pain Patient has had good urine output. Serum creatinine decreased to 1.7 mg/dL. Objective - Vital Signs Vital signs: Vital Signs Temp 98.4 F 05/29/23 08:00 Pulse 65 05/29/23 15:00 Resp 26 H 05/29/23 15:00 BP 136/73 05/29/23 15:00 Pulse Ox 91 L 05/29/23 15:00 FiO2 50 05/29/23 15:19 Intake & Output 05/28/23 05/29/23 05/29/23 18:59 06:59 18:59 Intake Total 555.892 168.971 794.614 Output Total 950 1414 850 Balance -394.108 -1245.029 -55.386 Weight 63.957 kg 73.4 kg Intake: IV 10 10 280 0.9 10 Invasive Line 3 10 Potassium Chloride 10 meq 200 In Water For Injection 1 100ml.bag @ 100 mls/hr IVPB Q1H [facility] Rx#: [id number] Sodium Chloride 0.9% 500 80 ml 500 ml @ 20 mls/hr IV .Q24H [facility] Rx#:[id number] Intake, IV Titration 185.892 158.971 194.614 Amount Diltiazem 125 mg In 60.500 Sodium Chloride 0.9% 100 ml @ 10 MG/HR 10 mls/hr IV .[id number] [facility] Rx#: [id number] Diltiazem 125 mg In 0 82.75 Sodium Chloride 0.9% 100 ml @ 10 MG/HR 10 mls/hr IV .[id number] [facility] Rx#: [id number] Heparin Sod,Pork in 0.45% 125.392 158.971 111.864 NaCl 25,000 unit In 0.45 % NaCl 1 250ml.bag @ 12 UNITS/KG/HR 7.675 mls/hr IV .Q24H [facility] Rx#: [id number] Oral 360 320 Output: Urine 950 1350 850 Post Void Residual 64 Other: Voiding Method Toilet External Catheter External Catheter # Voids 1 1 # Bowel Movements 1 - Exam Patient is awake, comfortable, no acute distress Examination of the heart S1 and S2 Examination of the lungs bilateral breath sounds are heard, decreased breath sounds at the bases. Abdomen is soft nontender Examination lower extremities shows no evidence of edema [place] exam grossly intact - Labs CBC & Chem 7: 05/29/23 09:35 05/29/23 04:51 Labs: Abnormal Lab Results - Last 24 Hours (Table) 05/28/23 05/28/23 05/28/23 Range/Units 16:42 21:23 21:49 WBC (3.8-10.6) k/uL RBC (4.30-5.90) m/uL Hgb (13.0-17.5) gm/dL Hct (39.0-53.0) % MCV (80.0-100.0) fL MCH (25.0-35.0) pg Neutrophils # (1.3-7.7) k/uL Lymphocytes # (1.0-4.8) k/uL APTT 42.3 H (22.0-30.0) sec ABG pH (7.35-7.45) ABG pO2 (83-108) mmHg ABG HCO3 (21-25) mmol/L ABG Total CO2 (19-24) mmol/L ABG O2 Saturation (94-97) % Carbon Dioxide (22-30) mmol/L BUN (9-20) mg/dL Creatinine (0.66-1.25) mg/dL Glucose (74-99) mg/dL POC Glucose (mg/dL) 170 H 162 H (70-110) mg/dL AST (17-59) U/L ALT (4-49) U/L Alkaline Phosphatase (38-126) U/L Total Protein (6.3-8.2) g/dL Albumin (3.5-5.0) g/dL 05/29/23 05/29/23 05/29/23 Range/Units 04:38 04:51 04:55 WBC (3.8-10.6) k/uL RBC (4.30-5.90) m/uL Hgb (13.0-17.5) gm/dL Hct (39.0-53.0) % MCV (80.0-100.0) fL MCH (25.0-35.0) pg Neutrophils # (1.3-7.7) k/uL Lymphocytes # (1.0-4.8) k/uL APTT 37.0 H (22.0-30.0) sec ABG pH (7.35-7.45) ABG pO2 (83-108) mmHg ABG HCO3 (21-25) mmol/L ABG Total CO2 (19-24) mmol/L ABG O2 Saturation (94-97) % Carbon Dioxide 31 H (22-30) mmol/L BUN 33 H (9-20) mg/dL Creatinine 1.70 H (0.66-1.25) mg/dL Glucose 117 H (74-99) mg/dL POC Glucose (mg/dL) 131 H (70-110) mg/dL AST 156 H (17-59) U/L ALT 285 H (4-49) U/L Alkaline Phosphatase 181 H (38-126) U/L Total Protein 5.6 L (6.3-8.2) g/dL Albumin 3.3 L (3.5-5.0) g/dL 05/29/23 05/29/23 05/29/23 Range/Units 04:56 05:59 06:21 WBC 14.7 H (3.8-10.6) k/uL RBC 3.68 L (4.30-5.90) m/uL Hgb 8.8 L (13.0-17.5) gm/dL Hct 27.5 L (39.0-53.0) % MCV 74.7 L (80.0-100.0) fL MCH 23.8 L (25.0-35.0) pg Neutrophils # 12.8 H (1.3-7.7) k/uL Lymphocytes # 0.8 L (1.0-4.8) k/uL APTT (22.0-30.0) sec ABG pH 7.50 H (7.35-7.45) ABG pO2 66 L (83-108) mmHg ABG HCO3 32 H (21-25) mmol/L ABG Total CO2 34 H (19-24) mmol/L ABG O2 Saturation 92.7 L (94-97) % Carbon Dioxide (22-30) mmol/L BUN (9-20) mg/dL Creatinine (0.66-1.25) mg/dL Glucose (74-99) mg/dL POC Glucose (mg/dL) 136 H (70-110) mg/dL AST (17-59) U/L ALT (4-49) U/L Alkaline Phosphatase (38-126) U/L Total Protein (6.3-8.2) g/dL Albumin (3.5-5.0) g/dL 05/29/23 05/29/23 05/29/23 Range/Units 09:35 09:35 11:56 WBC 14.2 H (3.8-10.6) k/uL RBC 3.73 L (4.30-5.90) m/uL Hgb 9.3 L (13.0-17.5) gm/dL Hct 28.1 L (39.0-53.0) % MCV 75.2 L (80.0-100.0) fL MCH 24.8 L (25.0-35.0) pg Neutrophils # 12.9 H (1.3-7.7) k/uL Lymphocytes # 0.5 L (1.0-4.8) k/uL APTT 35.8 H (22.0-30.0) sec ABG pH (7.35-7.45) ABG pO2 (83-108) mmHg ABG HCO3 (21-25) mmol/L ABG Total CO2 (19-24) mmol/L ABG O2 Saturation (94-97) % Carbon Dioxide (22-30) mmol/L BUN (9-20) mg/dL Creatinine (0.66-1.25) mg/dL Glucose (74-99) mg/dL POC Glucose (mg/dL) 120 H (70-110) mg/dL AST (17-59) U/L ALT (4-49) U/L Alkaline Phosphatase (38-126) U/L Total Protein (6.3-8.2) g/dL Albumin (3.5-5.0) g/dL Assessment and Plan Assessment: 1. Non-oliguric ARNALDO, likely ATN from chronic NSAID use and obstructive uropathy. Baseline creatinine 0.9, presented 6.8, improved to 1.7 today. Status post IV fluids. Renal ultrasound shows moderate left hydronephrosis. No plans for ureteral stents, nephrostomy tube was being considered however renal function continues to improve without intervention. 2. Bladder Cancer currently undergoing chemotherapy. 3. Metabolic Acidosis 4. COPD Exacerbation-Pulmonology following. V/Q low probability for PE 5. Hyperkalemia due to a GI and obstructive uropathy. Improved 6. A. fib with RVR 7. Volume overload Plan: Continue off of IV fluids Repeat IV Lasix x 1 Repeat labs in a.m.
[2023-05-29 17:07] LABS: Glucose,Whole Blood 133 mg/dL (70-110)
[2023-05-29 20:02] LABS: Glucose,Whole Blood 138 mg/dL (70-110)
--- NOTE | 2023-05-29 21:16 | P.PN ---
Subjective Progress Note Date: 05/29/23 Principal diagnosis: Acute renal failure. Urothelial carcinoma on immunotherapy. In follow-up today patient denies palpitations or chest pain. SOB is stable on bipap. Patient is able to speak easily without significant dyspnea. No fevers, nausea, vomiting. Objective - Vital Signs Vital signs: Vital Signs Temp 98.4 F 05/29/23 08:00 Pulse 126 H 05/29/23 08:00 Resp 33 H 05/29/23 08:00 BP 150/109 05/29/23 08:00 Pulse Ox 92 L 05/29/23 08:00 FiO2 60 05/29/23 08:25 Intake & Output 05/28/23 05/29/23 05/29/23 18:59 06:59 18:59 Intake Total 555.892 168.971 100 Output Total 950 1414 200 Balance -394.108 -1245.029 -100 Weight 63.957 kg 73.4 kg Intake: IV 10 10 0.9 10 Invasive Line 3 10 Intake, IV Titration 185.892 158.971 Amount Diltiazem 125 mg In 60.500 Sodium Chloride 0.9% 100 ml @ 10 MG/HR 10 mls/hr IV .[id number] [facility] Rx#: [id number] Diltiazem 125 mg In 0 Sodium Chloride 0.9% 100 ml @ 10 MG/HR 10 mls/hr IV .[id number] [facility] Rx#: [id number] Heparin Sod,Pork in 0.45% 125.392 158.971 NaCl 25,000 unit In 0.45 % NaCl 1 250ml.bag @ 12 UNITS/KG/HR 7.675 mls/hr IV .Q24H [facility] Rx#: [id number] Oral 360 100 Output: Urine 950 1350 200 Post Void Residual 64 Other: Voiding Method Toilet External Catheter External Catheter # Voids 1 1 # Bowel Movements 1 - Constitutional General appearance: Present: average body habitus, cooperative, no acute distress - EENT Eyes: Present: anicteric sclerae, EOMI ENT: Present: hearing grossly normal - Respiratory Respiratory: bilateral: diminished - Cardiovascular Details: tachy - Peripheral edema leg Peripheral Edema: bilateral: None - Neurologic Neurologic: Present: CNII-XII intact - Musculoskeletal Musculoskeletal: Present: generalized weakness, strength equal bilaterally - Psychiatric Psychiatric: Present: A&O x's 3, appropriate affect, intact judgment & insight - Labs CBC & Chem 7: 05/29/23 09:35 05/29/23 18:37 Labs: Abnormal Lab Results - Last 24 Hours (Table) 05/28/23 05/28/23 05/28/23 Range/Units 06:42 14:53 16:42 WBC 21.32 H (4.50-10.00) X 10*3/uL RBC 3.83 L (4.40-5.60) X 10*6/uL Hgb 9.0 L (13.0-17.0) g/dL Hct 28.6 L (39.6-50.0) % MCV 74.7 L (80.0-97.0) FL MCH 23.5 L (27.0-32.0) pg MCHC 31.5 L (32.0-37.0) g/dL RDW 15.6 H (11.5-14.5) % Immature Gran # 0.14 H (0.00-0.04) X 10*3/uL Neutrophils # 18.55 H (1.80-7.70) X 10*3/uL Lymphocytes # 0.86 L (0.90-5.00) X 10*3/uL Monocytes # 1.57 H (0.20-1.00) X 10*3/uL APTT 31.3 H (22.0-30.0) sec ABG pH (7.35-7.45) ABG pO2 (83-108) mmHg ABG HCO3 (21-25) mmol/L ABG Total CO2 (19-24) mmol/L ABG O2 Saturation (94-97) % Carbon Dioxide (22-30) mmol/L BUN (9-20) mg/dL Creatinine (0.66-1.25) mg/dL Glucose (74-99) mg/dL POC Glucose (mg/dL) 170 H (70-110) mg/dL AST (17-59) U/L ALT (4-49) U/L Alkaline Phosphatase (38-126) U/L Total Protein (6.3-8.2) g/dL Albumin (3.5-5.0) g/dL 05/28/23 05/28/23 05/29/23 Range/Units 21:23 21:49 04:38 WBC (4.50-10.00) X 10*3/uL RBC (4.40-5.60) X 10*6/uL Hgb (13.0-17.0) g/dL Hct (39.6-50.0) % MCV (80.0-97.0) FL MCH (27.0-32.0) pg MCHC (32.0-37.0) g/dL RDW (11.5-14.5) % Immature Gran # (0.00-0.04) X 10*3/uL Neutrophils # (1.80-7.70) X 10*3/uL Lymphocytes # (0.90-5.00) X 10*3/uL Monocytes # (0.20-1.00) X 10*3/uL APTT 42.3 H (22.0-30.0) sec ABG pH (7.35-7.45) ABG pO2 (83-108) mmHg ABG HCO3 (21-25) mmol/L ABG Total CO2 (19-24) mmol/L ABG O2 Saturation (94-97) % Carbon Dioxide (22-30) mmol/L BUN (9-20) mg/dL Creatinine (0.66-1.25) mg/dL Glucose (74-99) mg/dL POC Glucose (mg/dL) 162 H 131 H (70-110) mg/dL AST (17-59) U/L ALT (4-49) U/L Alkaline Phosphatase (38-126) U/L Total Protein (6.3-8.2) g/dL Albumin (3.5-5.0) g/dL 05/29/23 05/29/23 05/29/23 Range/Units 04:51 04:55 04:56 WBC 14.7 H (4.50-10.00) X 10*3/uL RBC 3.68 L (4.40-5.60) X 10*6/uL Hgb 8.8 L (13.0-17.0) g/dL Hct 27.5 L (39.6-50.0) % MCV 74.7 L (80.0-97.0) FL MCH 23.8 L (27.0-32.0) pg MCHC (32.0-37.0) g/dL RDW (11.5-14.5) % Immature Gran # (0.00-0.04) X 10*3/uL Neutrophils # 12.8 H (1.80-7.70) X 10*3/uL Lymphocytes # 0.8 L (0.90-5.00) X 10*3/uL Monocytes # (0.20-1.00) X 10*3/uL APTT 37.0 H (22.0-30.0) sec ABG pH (7.35-7.45) ABG pO2 (83-108) mmHg ABG HCO3 (21-25) mmol/L ABG Total CO2 (19-24) mmol/L ABG O2 Saturation (94-97) % Carbon Dioxide 31 H (22-30) mmol/L BUN 33 H (9-20) mg/dL Creatinine 1.70 H (0.66-1.25) mg/dL Glucose 117 H (74-99) mg/dL POC Glucose (mg/dL) (70-110) mg/dL AST 156 H (17-59) U/L ALT 285 H (4-49) U/L Alkaline Phosphatase 181 H (38-126) U/L Total Protein 5.6 L (6.3-8.2) g/dL Albumin 3.3 L (3.5-5.0) g/dL 05/29/23 05/29/23 Range/Units 05:59 06:21 WBC (4.50-10.00) X 10*3/uL RBC (4.40-5.60) X 10*6/uL Hgb (13.0-17.0) g/dL Hct (39.6-50.0) % MCV (80.0-97.0) FL MCH (27.0-32.0) pg MCHC (32.0-37.0) g/dL RDW (11.5-14.5) % Immature Gran # (0.00-0.04) X 10*3/uL Neutrophils # (1.80-7.70) X 10*3/uL Lymphocytes # (0.90-5.00) X 10*3/uL Monocytes # (0.20-1.00) X 10*3/uL APTT (22.0-30.0) sec ABG pH 7.50 H (7.35-7.45) ABG pO2 66 L (83-108) mmHg ABG HCO3 32 H (21-25) mmol/L ABG Total CO2 34 H (19-24) mmol/L ABG O2 Saturation 92.7 L (94-97) % Carbon Dioxide (22-30) mmol/L BUN (9-20) mg/dL Creatinine (0.66-1.25) mg/dL Glucose (74-99) mg/dL POC Glucose (mg/dL) 136 H (70-110) mg/dL AST (17-59) U/L ALT (4-49) U/L Alkaline Phosphatase (38-126) U/L Total Protein (6.3-8.2) g/dL Albumin (3.5-5.0) g/dL - Imaging and Cardiology Chest x-ray: report reviewed Assessment and Plan (1) Acute exacerbation of chronic obstructive pulmonary disease Current Visit: Yes Status: Acute Priority: High Code(s): J44.1 - CHRONIC OBSTRUCTIVE PULMONARY DISEASE W (ACUTE) EXACERBATION SNOMED Code(s): 014862736 (2) Acute renal failure Current Visit: Yes Status: Acute Priority: High Code(s): N17.9 - ACUTE KIDNEY FAILURE, UNSPECIFIED SNOMED Code(s): 08673347 (3) Bladder cancer Current Visit: Yes Status: Acute Priority: High Code(s): C67.9 - MALIGNANT NEOPLASM OF BLADDER, UNSPECIFIED SNOMED Code(s): 728060465 Plan: A-fib with RVR, elevated BNP -Cardiology has been consulted and is seeing patient. Medically managing -Patient is currently on a heparin drip. -Agree with ECHO in the near future. Assess for possible myocarditis from IO, extremely rare side effect but reasonable to assess for the same COPD exacerbation -Chest x-ray report reviewed, documenting pulmonary edema. -Pulmonary is following. -Pt on treatment for the same Acute renal failure -There was discussion about possible nephrostomy tubes, felt possible ureteral obstruction from disease. Creatinine has improved so, no plans for the same at this time -Nephrology following -Urothelial carcinoma -High-resolution CT results reviewed with the patient, no evidence of pneumonitis. -Plan will be to resume immunotherapy once patient's current condition is treated to resolution and he is physically adequately recovered. Anemia -Microcytic, hypochromic -Iron studies reordered Doctor attests: I performed a history and physical examination of this patient, developed impression and plan of care. Discussed with dictator. I agree with dictators note, documented as a scribe.
[2023-05-29 22:28] LABS: % Iron Saturation 5.96 (15.00-50.00)
[2023-05-30 03:49] LABS: Basophils % (A) 0 %; Eosinophils # (A) 0.1 k/uL (0-0.7); Eosinophils % (A) 1 %; HCT 28.7 % (39.0-53.0); HGB 9.1 gm/dL (13.0-17.5); Lymphocytes # (A) 0.4 k/uL (1.0-4.8); Lymphocytes % (A) 4 %; MCH 24.1 pg (25.0-35.0); MCHC 31.7 g/dL (31.0-37.0); Mean Platelet Volume 8.7; Microcytosis Slight; Monocytes # (A) 0.2 k/uL (0-1.0); Monocytes % (A) 2 %; Neutrophils # (A) 10.2 k/uL (1.3-7.7); Neutrophils % (A) 92 %; Platelet Count 159 k/uL (150-450); RBC 3.78 m/uL (4.30-5.90); RDW 14.5 % (11.5-15.5)
[2023-05-30 04:19] LABS: African American GFR (CKD) 25 (>60 ml/min/1.73 sqM); Anion Gap 6 mmol/L; Blood Urea Nitrogen 46 mg/dL (9-20); Calcium 8.3 mg/dL (8.4-10.2); Carbon Dioxide 30 mmol/L (22-30); Chloride 101 mmol/L (98-107); Glucose 112 mg/dL (74-99); Non-African American GFR(CKD) 22 (>60 ml/min/1.73 sqM); Potassium 4.5 mmol/L (3.5-5.1); Sodium 137 mmol/L (137-145)
[2023-05-30 05:05] LABS: Methylmalonic Acid 0.27 umol/L (<0.40)
[2023-05-30 06:24] LABS: Glucose,Whole Blood 111 mg/dL (70-110)
--- NOTE | 2023-05-30 07:44 | XR ---
EXAMINATION TYPE: XR chest 1V portable DATE OF EXAM: 05/30/2023 Comparison: 05/29/2023 Clinical History: 63-year-old male fluid overload Findings: Heart borderline enlarged. Hyperinflation. Diffuse interstitial density persists with some developing patchy mid and lower lung opacities. Hazy density left base could represent a trace effusion. Impression: Borderline cardiomegaly and COPD with interval worsening in interstitial and patchy opacities, suspec t CHF with developing interstitial pulmonary edema. Trace left effusion.
--- NOTE | 2023-05-30 09:27 | P.PN ---
Subjective Progress Note Date: 05/30/23 The patient is a 63-year-old male who is currently admitted with hypoxic respiratory failure and A-fib with RVR. The patient has had poor rate control and therefore was started on oral amiodarone. Yesterday his beta-cam was maximized in an effort to get his Cardizem drip discontinued. At the time of my exam the patient was visibly agitated with labored breathing. Heart rates were in the 140s with elevated blood pressure readings. He is currently on BiPAP. GENERAL: Ill-appearing, well-nourished and mild respiratory distress. NECK: Supple without JVD or thyromegaly. LUNGS: Breath sounds diminished to auscultation bilaterally. Respiration equal and unlabored. No wheezes, rales or rhonchi. HEART: Irregular rate and rhythm without murmurs, rubs or gallops. S1 and S2 heard. EXTREMITIES: Normal range of motion, no edema. No clubbing or cyanosis. Peripheral pulses intact and strong. TELEMETRY: A-fib with RVR. Heart rates averaging in the one teens, however episodes of RVR up into the 140s with agitation and difficulty breathing. LABS: WBC 11.0, hemoglobin 9.1, hematocrit 20.7, platelet 159, sodium 137, potassium 4.5, BUN 46, creatinine 2.97 IMPRESSION: A-fib with RVR, poor rate control Hypoxic respiratory failure, on BiPAP Acute kidney injury Bladder cancer PLAN: Increase metoprolol to 200 mg twice daily Titrate Cardizem drip as tolerated Aggressive pulmonary hygiene Further recommendations to be based upon clinical course I am dictating on behalf of Dr Babak Lentz's history/physical and assessment/plan. Objective - Vital Signs Vital signs: Vital Signs Temp 98.7 F 05/30/23 04:00 Pulse 111 H 05/30/23 07:00 Resp 26 H 05/30/23 07:00 BP 135/85 05/30/23 07:00 Pulse Ox 90 L 05/30/23 07:00 FiO2 60 05/30/23 09:03 Intake & Output 05/29/23 05/30/23 05/30/23 18:59 06:59 18:59 Intake Total 859.204 273.167 20 Output Total 1250 735 50 Balance -390.796 -461.833 -30 Weight 70.4 kg Intake: IV 280 200 20 0.9 200 20 Potassium Chloride 10 meq 200 In Water For Injection 1 100ml.bag @ 100 mls/hr IVPB Q1H [facility] Rx#: [id number] Sodium Chloride 0.9% 500 80 ml 500 ml @ 20 mls/hr IV .Q24H [facility] Rx#:[id number] Intake, IV Titration 259.204 73.167 Amount Diltiazem 125 mg In 90.00 73.167 Sodium Chloride 0.9% 100 ml @ 10 MG/HR 10 mls/hr IV .[id number] [facility] Rx#: [id number] Heparin Sod,Pork in 0.45% 169.204 NaCl 25,000 unit In 0.45 % NaCl 1 250ml.bag @ 12 UNITS/KG/HR 7.675 mls/hr IV .Q24H [facility] Rx#: [id number] Oral 320 Output: Urine 1250 735 50 Other: Voiding Method External Catheter External Catheter # Bowel Movements 0 0 - Labs CBC & Chem 7: 05/30/23 03:28 05/30/23 03:28 Labs: Abnormal Lab Results - Last 24 Hours (Table) 05/29/23 05/29/23 05/29/23 Range/Units 09:35 09:35 09:35 WBC 14.2 H (3.8-10.6) k/uL RBC 3.73 L (4.30-5.90) m/uL Hgb 9.3 L (13.0-17.5) gm/dL Hct 28.1 L (39.0-53.0) % MCV 75.2 L (80.0-100.0) fL MCH 24.8 L (25.0-35.0) pg Neutrophils # 12.9 H (1.3-7.7) k/uL Lymphocytes # 0.5 L (1.0-4.8) k/uL APTT 35.8 H (22.0-30.0) sec BUN (9-20) mg/dL Creatinine (0.66-1.25) mg/dL Glucose (74-99) mg/dL POC Glucose (mg/dL) (70-110) mg/dL Calcium (8.4-10.2) mg/dL Iron 13 L (65-175) UG/DL TIBC 218 L (228-460) UG/DL % Saturation 5.96 L (15.00-50.00) Transferrin 156.0 L (204.0-354.0) mg/dL Ferritin 862.0 H (22.0-322.0) ng/mL 05/29/23 05/29/23 05/29/23 Range/Units 11:56 17:05 18:37 WBC (3.8-10.6) k/uL RBC (4.30-5.90) m/uL Hgb (13.0-17.5) gm/dL Hct (39.0-53.0) % MCV (80.0-100.0) fL MCH (25.0-35.0) pg Neutrophils # (1.3-7.7) k/uL Lymphocytes # (1.0-4.8) k/uL APTT 57.1 H (22.0-30.0) sec BUN (9-20) mg/dL Creatinine (0.66-1.25) mg/dL Glucose (74-99) mg/dL POC Glucose (mg/dL) 120 H 133 H (70-110) mg/dL Calcium (8.4-10.2) mg/dL Iron (65-175) UG/DL TIBC (228-460) UG/DL % Saturation (15.00-50.00) Transferrin (204.0-354.0) mg/dL Ferritin (22.0-322.0) ng/mL 05/29/23 05/30/23 05/30/23 Range/Units 20:01 03:28 03:28 WBC 11.0 H (3.8-10.6) k/uL RBC 3.78 L (4.30-5.90) m/uL Hgb 9.1 L (13.0-17.5) gm/dL Hct 28.7 L (39.0-53.0) % MCV 76.0 L (80.0-100.0) fL MCH 24.1 L (25.0-35.0) pg Neutrophils # 10.2 H (1.3-7.7) k/uL Lymphocytes # 0.4 L (1.0-4.8) k/uL APTT 55.4 H (22.0-30.0) sec BUN (9-20) mg/dL Creatinine (0.66-1.25) mg/dL Glucose (74-99) mg/dL POC Glucose (mg/dL) 138 H (70-110) mg/dL Calcium (8.4-10.2) mg/dL Iron (65-175) UG/DL TIBC (228-460) UG/DL % Saturation (15.00-50.00) Transferrin (204.0-354.0) mg/dL Ferritin (22.0-322.0) ng/mL 05/30/23 05/30/23 Range/Units 03:28 06:22 WBC (3.8-10.6) k/uL RBC (4.30-5.90) m/uL Hgb (13.0-17.5) gm/dL Hct (39.0-53.0) % MCV (80.0-100.0) fL MCH (25.0-35.0) pg Neutrophils # (1.3-7.7) k/uL Lymphocytes # (1.0-4.8) k/uL APTT (22.0-30.0) sec BUN 46 H (9-20) mg/dL Creatinine 2.97 H (0.66-1.25) mg/dL Glucose 112 H (74-99) mg/dL POC Glucose (mg/dL) 111 H (70-110) mg/dL Calcium 8.3 L (8.4-10.2) mg/dL Iron (65-175) UG/DL TIBC (228-460) UG/DL % Saturation (15.00-50.00) Transferrin (204.0-354.0) mg/dL Ferritin (22.0-322.0) ng/mL
--- NOTE | 2023-05-30 09:31 | P.PN ---
Subjective Progress Note Date: 05/30/23 Principal diagnosis: Renal failure secondary to bilateral hydronephrosis The patient is a 63-year-old white male with metastatic muscle invasive bladder cancer. This has caused bilateral hydronephrosis with resulting renal failure. He transferred to the ICU with respiratory distress. He states that he is voiding without difficulty. Objective - Vital Signs Vital signs: Vital Signs Temp 98.7 F 05/30/23 04:00 Pulse 122 H 05/30/23 06:00 Resp 25 H 05/30/23 06:00 BP 148/103 05/30/23 06:00 Pulse Ox 90 L 05/30/23 06:00 FiO2 60 05/30/23 04:00 Intake & Output 05/29/23 05/29/23 05/30/23 06:59 18:59 06:59 Intake Total 168.971 859.204 233.167 Output Total 1414 1250 700 Balance -1245.029 -390.796 -466.833 Weight 73.4 kg 70.4 kg Intake: IV 10 280 160 0.9 10 160 Potassium Chloride 10 meq 200 In Water For Injection 1 100ml.bag @ 100 mls/hr IVPB Q1H [facility] Rx#: [id number] Sodium Chloride 0.9% 500 80 ml 500 ml @ 20 mls/hr IV .Q24H [facility] Rx#:[id number] Intake, IV Titration 158.971 259.204 73.167 Amount Diltiazem 125 mg In 0 90.00 73.167 Sodium Chloride 0.9% 100 ml @ 10 MG/HR 10 mls/hr IV .[id number] [facility] Rx#: [id number] Heparin Sod,Pork in 0.45% 158.971 169.204 NaCl 25,000 unit In 0.45 % NaCl 1 250ml.bag @ 12 UNITS/KG/HR 7.675 mls/hr IV .Q24H [facility] Rx#: [id number] Oral 320 Output: Urine 1350 1250 700 Post Void Residual 64 Other: Voiding Method External Catheter External Catheter External Catheter # Voids 1 # Bowel Movements 1 0 0 - Constitutional General appearance: Present: average body habitus, mild distress - Psychiatric Psychiatric: Present: A&O x's 3 - Labs CBC & Chem 7: 05/30/23 03:28 05/30/23 03:28 Labs: Abnormal Lab Results - Last 24 Hours (Table) 05/29/23 05/29/23 05/29/23 Range/Units 09:35 09:35 09:35 WBC 14.2 H (3.8-10.6) k/uL RBC 3.73 L (4.30-5.90) m/uL Hgb 9.3 L (13.0-17.5) gm/dL Hct 28.1 L (39.0-53.0) % MCV 75.2 L (80.0-100.0) fL MCH 24.8 L (25.0-35.0) pg Neutrophils # 12.9 H (1.3-7.7) k/uL Lymphocytes # 0.5 L (1.0-4.8) k/uL APTT 35.8 H (22.0-30.0) sec BUN (9-20) mg/dL Creatinine (0.66-1.25) mg/dL Glucose (74-99) mg/dL POC Glucose (mg/dL) (70-110) mg/dL Calcium (8.4-10.2) mg/dL Iron 13 L (65-175) UG/DL TIBC 218 L (228-460) UG/DL % Saturation 5.96 L (15.00-50.00) Transferrin 156.0 L (204.0-354.0) mg/dL Ferritin 862.0 H (22.0-322.0) ng/mL 05/29/23 05/29/23 05/29/23 Range/Units 11:56 17:05 18:37 WBC (3.8-10.6) k/uL RBC (4.30-5.90) m/uL Hgb (13.0-17.5) gm/dL Hct (39.0-53.0) % MCV (80.0-100.0) fL MCH (25.0-35.0) pg Neutrophils # (1.3-7.7) k/uL Lymphocytes # (1.0-4.8) k/uL APTT 57.1 H (22.0-30.0) sec BUN (9-20) mg/dL Creatinine (0.66-1.25) mg/dL Glucose (74-99) mg/dL POC Glucose (mg/dL) 120 H 133 H (70-110) mg/dL Calcium (8.4-10.2) mg/dL Iron (65-175) UG/DL TIBC (228-460) UG/DL % Saturation (15.00-50.00) Transferrin (204.0-354.0) mg/dL Ferritin (22.0-322.0) ng/mL 05/29/23 05/30/23 05/30/23 Range/Units 20:01 03:28 03:28 WBC 11.0 H (3.8-10.6) k/uL RBC 3.78 L (4.30-5.90) m/uL Hgb 9.1 L (13.0-17.5) gm/dL Hct 28.7 L (39.0-53.0) % MCV 76.0 L (80.0-100.0) fL MCH 24.1 L (25.0-35.0) pg Neutrophils # 10.2 H (1.3-7.7) k/uL Lymphocytes # 0.4 L (1.0-4.8) k/uL APTT 55.4 H (22.0-30.0) sec BUN (9-20) mg/dL Creatinine (0.66-1.25) mg/dL Glucose (74-99) mg/dL POC Glucose (mg/dL) 138 H (70-110) mg/dL Calcium (8.4-10.2) mg/dL Iron (65-175) UG/DL TIBC (228-460) UG/DL % Saturation (15.00-50.00) Transferrin (204.0-354.0) mg/dL Ferritin (22.0-322.0) ng/mL 05/30/23 05/30/23 Range/Units 03:28 06:22 WBC (3.8-10.6) k/uL RBC (4.30-5.90) m/uL Hgb (13.0-17.5) gm/dL Hct (39.0-53.0) % MCV (80.0-100.0) fL MCH (25.0-35.0) pg Neutrophils # (1.3-7.7) k/uL Lymphocytes # (1.0-4.8) k/uL APTT (22.0-30.0) sec BUN 46 H (9-20) mg/dL Creatinine 2.97 H (0.66-1.25) mg/dL Glucose 112 H (74-99) mg/dL POC Glucose (mg/dL) 111 H (70-110) mg/dL Calcium 8.3 L (8.4-10.2) mg/dL Iron (65-175) UG/DL TIBC (228-460) UG/DL % Saturation (15.00-50.00) Transferrin (204.0-354.0) mg/dL Ferritin (22.0-322.0) ng/mL Assessment and Plan (1) Acquired hydronephrosis Current Visit: Yes Status: Acute Code(s): N13.30 - UNSPECIFIED HYDRONEPHROSIS SNOMED Code(s): 762856322 Plan: Serum creatinine level is improved as a result of IV hydration, though the creatinine level has increased today compared to yesterday. It continues to be my impression that he would benefit from nephrostomy tube placement, but this would likely need to be done at an outside institution. For now, renal function will continue to be monitored.
[2023-05-30] MEDS: METOPROLOL TARTRATE 50 MG TAB PO STA (09:37)
--- NOTE | 2023-05-30 09:58 | P.PN ---
Subjective Progress Note Date: 05/29/23 63-year-old male patient with a history of bladder mass and left hydronephrosis. He had undergone a TURP and attempted left-sided stent insertion by urology on February 06, 2023. CAT scan of the chest abdomen pelvis from April 2023 revealed findings of progression of disease with left lateral bladder wall eccentric thickening with partial obstruction of left ureter and mild left hydronephrosis. New segment 3 liver lesion concerning metastatic disease. Right lower lobe and increasing size of the left lower lobe pulmonary nodules. Increased retroperitoneal lymph node at the level of the left kidney and left pelvis at sidewall nodes. Indeterminate right inferior pubic ramus 4 mm sclerotic focus. Follow-up imaging for osseous metastatic disease. He had undergone his first treatment for the bladder cancer on May 23, 2023. Yesterday he was seen by Dr. Hankins who referred him here for CAT scan to rule out pulmonary embolism due to his complaints of shortness of breath. Ever, he w as find to have significant elevation in his creatinine at 6.82. He did undergo ventilation/perfusion study instead revealed low evidence for pulmonary embolism. He is currently on a heparin drip. X-ray revealed no acute cardiopulmonary process. Evidence of COPD. White count 9.0. Hemoglobin 9.7. Platelets 263. Sodium 136. Potassium 5.4. Bicarb 14. BUN 49. Creatinine 6.3. Glucose 202. Urinalysis with large blood, greater than 182 RBCs. Viral screen negative. The patient was a heavy smoker and drinker for over 40 years however quit smoking and drinking in January 2023. He is seen today in consultation on the regular medical floor. He is currently resting in bed. Awake and alert in no acute distress. He is quite anxious and nervous. He is somewhat of a poor historian. He states he had been taking a lot of ibuprofen due to the pain in his bladder area and down his left leg. 05/28. Patient seen and examined. Blood work done this morning showed WBC 22.3, hemoglobin 9.7, platelet count 318, sodium 142, potassium 4.7, BUN 48, creatinine 3.02. Patient went to [facility] with RVR overnight, currently on amiodarone and heparin. Renal function is improving. Bicarb drip has been discontinued. Patient is on prednisone 30 mg daily. 05/29/2023 Patient is currently in the MICU. Patient was transferred to MICU due to hypoxia and shortness of breath. Denied any complaints of chest pain. Shortness of breath did improve. Was given a dose of IV Lasix. Chest x-ray showed borderline cardiomegaly and COPD with interval worsening interstitial and patchy opacities. Suspected CHF. Patient is being continued on Cardizem drip and amiodarone drip. Cardiology and nephrology is on board. Laboratory data showed WBC 14.2 hemoglobin 9.3 and platelets 214 REVIEW OF SYSTEMS: CONSTITUTIONAL: No fever, no malaise,. CARDIOVASCULAR: No chest pain, no palpitations, no syncope. PULMONARY: No shortness of breath, no cough, GASTROINTESTINAL: No diarrhea, no nausea, no vomiting, no abdominal pain. NEUROLOGICAL: No headaches, no weakness, PHYSICAL EXAMINATION: GENERAL: The patient is alert and oriented x3, not in any acute distress. Well developed, well nourished. HEENT: Pupils are round and equally reacting to light. EOMI. No scleral icterus. No conjunctival pallor. Normocephalic, atraumatic. No pharyngeal erythema. No thyromegaly. CARDIOVASCULAR: S1 and S2 present. No murmurs, rubs, or gallops. Irregular in rhythm and rate PULMONARY: Chest is clear to auscultation, no wheezing or crackles. ABDOMEN: Soft, nontender, nondistended, normoactive bowel sounds. No palpable organomegaly. MUSCULOSKELETAL: No joint swelling or deformity. EXTREMITIES: No cyanosis, clubbing, or pedal edema. NEUROLOGICAL: Gross neurological examination did not reveal any focal deficits. SKIN: No rashes. Assessment and plan Acute exacerbation COPD. VQ scan low probability for PE. Acute hypoxemic respiratory failure secondary acute CHF EF not known and COPD. Dyspnea A-fib RVR. On heparin drip currently Acute nonoliguric renal injury; creatinine at 6.3 upon admission. Due to obstructive uropathy and possible ATN from chronic NSAID use. Improving. Moderate left hydronephrosis Microcytic iron deficiency anemia Uncontrolled hypertension History of bladder CA Anxiety tobacco addiction Monitor vital signs monitor CBC Monitor CMP Continue breathing treatments Continue prednisone Continue pharmacy to dose heparin Continue amiodarone and Lopressor ultrasound showed evidence of obstructive uropathy/hydronephrosis, patient was seen by nephrology and he was also seen by urology. Both are addressing his renal issues, and whether the patient may need nephrostomy tubes or not this is to be decided upon by urology. According to nephrology the patient does not need immediate hemodialysis, as the patient is making urine, and he does not hav e significant uremia symptoms to start hemodialysis. Renal function is improving. Pulmonology following Nephrology following Cardiology is on board. Labs and medication were reviewed. Continue with symptomatic treatment. Resume home medication. Monitor labs and vitals. DVT and GI prophylaxis. Dictation was produced using [employer] dictation software. please excuse any grammatical, word or spelling errors. Objective - Vital Signs Vital signs: Vital Signs Temp 98.4 F 05/29/23 08:00 Pulse 130 H 05/29/23 10:00 Resp 24 05/29/23 10:00 BP 126/91 05/29/23 10:00 Pulse Ox 91 L 05/29/23 10:00 FiO2 50 05/29/23 10:00 Intake & Output 05/28/23 05/29/23 05/29/23 18:59 06:59 18:59 Intake Total 555.892 168.971 240 Output Total 950 1414 300 Balance -394.108 -1245.029 -60 Weight 63.957 kg 73.4 kg Intake: IV 10 10 40 0.9 10 Invasive Line 3 10 Sodium Chloride 0.9% 500 40 ml 500 ml @ 20 mls/hr IV .Q24H [facility]AR Rx#:[id number] Intake, IV Titration 185.892 158.971 Amount Diltiazem 125 mg In 60.500 Sodium Chloride 0.9% 100 ml @ 10 MG/HR 10 mls/hr IV .[id number] [facility]AR Rx#: [id number] Diltiazem 125 mg In 0 Sodium Chloride 0.9% 100 ml @ 10 MG/HR 10 mls/hr IV .[id number] SUGAR Rx#: [id number] Heparin Sod,Pork in 0.45% 125.392 158.971 NaCl 25,000 unit In 0.45 % NaCl 1 250ml.bag @ 12 UNITS/KG/HR 7.675 mls/hr IV .Q24H SUGAR Rx#: [id number] Oral 360 200 Output: Urine 950 1350 300 Post Void Residual 64 Other: Voiding Method Toilet External Catheter External Catheter # Voids 1 1 # Bowel Movements 1 - Labs CBC & Chem 7: 05/30/23 03:28 05/30/23 03:28 Labs: Abnormal Lab Results - Last 24 Hours (Table) 05/28/23 05/28/23 05/28/23 Range/Units 06:42 14:53 16:42 WBC 21.32 H (4.50-10.00) X 10*3/uL RBC 3.83 L (4.40-5.60) X 10*6/uL Hgb 9.0 L (13.0-17.0) g/dL Hct 28.6 L (39.6-50.0) % MCV 74.7 L (80.0-97.0) FL MCH 23.5 L (27.0-32.0) pg MCHC 31.5 L (32.0-37.0) g/dL RDW 15.6 H (11.5-14.5) % Immature Gran # 0.14 H (0.00-0.04) X 10*3/uL Neutrophils # 18.55 H (1.80-7.70) X 10*3/uL Lymphocytes # 0.86 L (0.90-5.00) X 10*3/uL Monocytes # 1.57 H (0.20-1.00) X 10*3/uL APTT 31.3 H (22.0-30.0) sec ABG pH (7.35-7.45) ABG pO2 (83-108) mmHg ABG HCO3 (21-25) mmol/L ABG Total CO2 (19-24) mmol/L ABG O2 Saturation (94-97) % Carbon Dioxide (22-30) mmol/L BUN (9-20) mg/dL Creatinine (0.66-1.25) mg/dL Glucose (74-99) mg/dL POC Glucose (mg/dL) 170 H (70-110) mg/dL AST (17-59) U/L ALT (4-49) U/L Alkaline Phosphatase (38-126) U/L Total Protein (6.3-8.2) g/dL Albumin (3.5-5.0) g/dL 05/28/23 05/28/23 05/29/23 Range/Units 21:23 21:49 04:38 WBC (4.50-10.00) X 10*3/uL RBC (4.40-5.60) X 10*6/uL Hgb (13.0-17.0) g/dL Hct (39.6-50.0) % MCV (80.0-97.0) FL MCH (27.0-32.0) pg MCHC (32.0-37.0) g/dL RDW (11.5-14.5) % Immature Gran # (0.00-0.04) X 10*3/uL Neutrophils # (1.80-7.70) X 10*3/uL Lymphocytes # (0.90-5.00) X 10*3/uL Monocytes # (0.20-1.00) X 10*3/uL APTT 42.3 H (22.0-30.0) sec ABG pH (7.35-7.45) ABG pO2 (83-108) mmHg ABG HCO3 (21-25) mmol/L ABG Total CO2 (19-24) mmol/L ABG O2 Saturation (94-97) % Carbon Dioxide (22-30) mmol/L BUN (9-20) mg/dL Creatinine (0.66-1.25) mg/dL Glucose (74-99) mg/dL POC Glucose (mg/dL) 162 H 131 H (70-110) mg/dL AST (17-59) U/L ALT (4-49) U/L Alkaline Phosphatase (38-126) U/L Total Protein (6.3-8.2) g/dL Albumin (3.5-5.0) g/dL 05/29/23 05/29/23 05/29/23 Range/Units 04:51 04:55 04:56 WBC 14.7 H (4.50-10.00) X 10*3/uL RBC 3.68 L (4.40-5.60) X 10*6/uL Hgb 8.8 L (13.0-17.0) g/dL Hct 27.5 L (39.6-50.0) % MCV 74.7 L (80.0-97.0) FL MCH 23.8 L (27.0-32.0) pg MCHC (32.0-37.0) g/dL RDW (11.5-14.5) % Immature Gran # (0.00-0.04) X 10*3/uL Neutrophils # 12.8 H (1.80-7.70) X 10*3/uL Lymphocytes # 0.8 L (0.90-5.00) X 10*3/uL Monocytes # (0.20-1.00) X 10*3/uL APTT 37.0 H (22.0-30.0) sec ABG pH (7.35-7.45) ABG pO2 (83-108) mmHg ABG HCO3 (21-25) mmol/L ABG Total CO2 (19-24) mmol/L ABG O2 Saturation (94-97) % Carbon Dioxide 31 H (22-30) mmol/L BUN 33 H (9-20) mg/dL Creatinine 1.70 H (0.66-1.25) mg/dL Glucose 117 H (74-99) mg/dL POC Glucose (mg/dL) (70-110) mg/dL AST 156 H (17-59) U/L ALT 285 H (4-49) U/L Alkaline Phosphatase 181 H (38-126) U/L Total Protein 5.6 L (6.3-8.2) g/dL Albumin 3.3 L (3.5-5.0) g/dL 05/29/23 05/29/23 05/29/23 Range/Units 05:59 06:21 09:35 WBC 14.2 H (4.50-10.00) X 10*3/uL RBC 3.73 L (4.40-5.60) X 10*6/uL Hgb 9.3 L (13.0-17.0) g/dL Hct 28.1 L (39.6-50.0) % MCV 75.2 L (80.0-97.0) FL MCH 24.8 L (27.0-32.0) pg MCHC (32.0-37.0) g/dL RDW (11.5-14.5) % Immature Gran # (0.00-0.04) X 10*3/uL Neutrophils # 12.9 H (1.80-7.70) X 10*3/uL Lymphocytes # 0.5 L (0.90-5.00) X 10*3/uL Monocytes # (0.20-1.00) X 10*3/uL APTT (22.0-30.0) sec ABG pH 7.50 H (7.35-7.45) ABG pO2 66 L (83-108) mmHg ABG HCO3 32 H (21-25) mmol/L ABG Total CO2 34 H (19-24) mmol/L ABG O2 Saturation 92.7 L (94-97) % Carbon Dioxide (22-30) mmol/L BUN (9-20) mg/dL Creatinine (0.66-1.25) mg/dL Glucose (74-99) mg/dL POC Glucose (mg/dL) 136 H (70-110) mg/dL AST (17-59) U/L ALT (4-49) U/L Alkaline Phosphatase (38-126) U/L Total Protein (6.3-8.2) g/dL Albumin (3.5-5.0) g/dL 05/29/23 Range/Units 09:35 WBC (4.50-10.00) X 10*3/uL RBC (4.40-5.60) X 10*6/uL Hgb (13.0-17.0) g/dL Hct (39.6-50.0) % MCV (80.0-97.0) FL MCH (27.0-32.0) pg MCHC (32.0-37.0) g/dL RDW (11.5-14.5) % Immature Gran # (0.00-0.04) X 10*3/uL Neutrophils # (1.80-7.70) X 10*3/uL Lymphocytes # (0.90-5.00) X 10*3/uL Monocytes # (0.20-1.00) X 10*3/uL APTT 35.8 H (22.0-30.0) sec ABG pH (7.35-7.45) ABG pO2 (83-108) mmHg ABG HCO3 (21-25) mmol/L ABG Total CO2 (19-24) mmol/L ABG O2 Saturation (94-97) % Carbon Dioxide (22-30) mmol/L BUN (9-20) mg/dL Creatinine (0.66-1.25) mg/dL Glucose (74-99) mg/dL POC Glucose (mg/dL) (70-110) mg/dL AST (17-59) U/L ALT (4-49) U/L Alkaline Phosphatase (38-126) U/L Total Protein (6.3-8.2) g/dL Albumin (3.5-5.0) g/dL
--- NOTE | 2023-05-30 10:30 | P.PN ---
Subjective Progress Note Date: 05/30/23 This is a 63-year-old male patient with a history of bladder mass and left hydronephrosis. He had undergone a TURP and attempted left-sided stent insertion by urology on February 06, 2023. CAT scan of the chest abdomen pelvis from April 2023 revealed findings of progression of disease with left lateral bladder wall eccentric thickening with partial obstruction of left ureter and mild left hydronephrosis. New segment 3 liver lesion concerning metastatic disease. Right lower lobe and increasing size of the left lower lobe pulmonary nodules. Increased retroperitoneal lymph node at the level of the left kidney and left pelvis at sidewall nodes. Indeterminate right inferior pubic ramus 4 mm sclerotic focus. Follow-up imaging for osseous metastatic disease. He had undergone his first treatment for the bladder cancer on May 23, 2023. Yesterday he was seen by Dr. Hankins who referred him here for CAT scan to rule out pulmonary embolism due to his complaints of shortness of breath. Ever, he was find to have significant elevation in his creatinine at 6.82. He did undergo ventilation/perfusion study instead revealed low evidence for pulmonary embolism. He is currently on a heparin drip. X-ray revealed no acute cardiopulmonary process. Evidence of COPD. White count 9.0. Hemoglobin 9.7. Platelets 263. Sodium 136. Potassium 5.4. Bicarb 14. BUN 49. Creatinine 6.3. Glucose 202. Urinalysis with large blood, greater than 182 RBCs. Viral screen negative. The patient was a heavy smoker and drinker for over 40 years however quit smoking and drinking in January 2023. He is seen today in consultation on the regular medical floor. He is currently resting in bed. Aw isabel and alert in no acute distress. He is quite anxious and nervous. He is somewhat of a poor historian. He states he had been taking a lot of ibuprofen due to the pain in his bladder area and down his left leg. The patient is seen today May 27, 2023 in follow-up on the regular medical floor. He is currently sitting up in bed. Awake and alert in no acute distress. He is maintaining good O2 saturation in the 90s on room air. CT scan of the chest without contrast revealed minimal airspace opacity in the lung bases. Trace bilateral pleural effusions and interlobular septal thickening. No evidence for pulmonary fibrosis. Scattered new pulmonary nodules correlate for infectious/inflammatory process. Renal ultrasound does reveal moderate left and mild right hydronephrosis. Bladder wall mass as seen on previous CT. white count 21.2. Hemoglobin 9.6. Platelets 331. Sodium 138. Potassium 5.9. Bicarb 13. BUN 57. Creatinine 6.4. Glucose 141. Procalcitonin was 0.31. He remains on DuoNeb inhalations, Symbicort, Solu-Medrol. Progress note dated May 28, 2023. The patient is seen today on the general medical floor, room 361. The patient continues on IV heparin, and, amiodarone. The patient apparently developed atrial fibrillation with RVR, and was transferred from the [facility], down to the cardiac floor. He continues on oxygen at 2 L. Saturations are 91 to 93%. He is currently in atrial fibrillation, with rates of between 100 to 110 bpm. Lab data includes a white count 21.3, hemoglobin 9, hematocrit 29, platelet count 327,000. PTT is 28.6. Sodium 142, potassium 4.7, chlorides 112, CO2 19, anion gap 11, BUN 48, creatinine 3.02. Glucose is 108. TSH is normal at 1.1. No recent chest x-ray to report. The patient is seen today February the intensive care unit. He was transferred here following an episode of atrial fibrillation with rapid ventricular response and hypoxemia. He was placed on BiPAP 12/5 and 60% FiO2. He had received Lasix 40 mg IVP x 1. He is now on Cardizem drip at 15 mg/hr. Amiodarone 0.05 mg/min. Currently on a heparin drip. Remains in atrial fibrillation currently. Controlled ventricular response. 7.5. White count 14.7. Hemoglobin 8.8. Platelets 239. Sodium 139. Potassium 3.7. Bicarb 31. BUN 33. Creatinine 1.70. Glucose 117. AST 156. ALT 285. proBNP 9690. Chest x-ray does revealed mild pulmonary edema. The patient is seen today May 30, 2023 in follow-up in the intensive care unit. He is currently again alert. He is maintained on BiPAP 12/5 and 60% FiO2 to maintain O2 saturations in the 90s. He has normal staying at 20 mph. He is continued on Cardizem drip at 15 mg/h. Remains on a heparin drip. Remains in atrial fibrillation. Continued on DuoNeb ventilations, Symbicort, prednisone. Chest x-ray reveals borderline cardiomegaly and COPD with worsening interstitial and patchy opacities. White count 11.0. Hemoglobin 9.1. Platelets 159. Sodium 137. Potassium 4.5. Bicarb 30. BUN 46. Creatinine 2.97. Glucose 112. Is continued on Lasix 20 mg IV every 12 hours. Currently in a negative balance. Objective - Vital Signs Vital signs: Vital Signs Temp 98.7 F 05/30/23 04:00 Pulse 90 05/30/23 09:30 Resp 25 H 05/30/23 09:30 BP 143/107 05/30/23 09:30 Pulse Ox 90 L 05/30/23 09:30 FiO2 60 05/30/23 09:03 Intake & Output 05/29/23 05/30/23 05/30/23 18:59 06:59 18:59 Intake Total 859.204 273.167 368.64 Output Total 1250 735 50 Balance -390.796 -461.833 318.64 Weight 70.4 kg Intake: IV 280 200 60 0.9 200 60 Potassium Chloride 10 meq 200 In Water For Injection 1 100ml.bag @ 100 mls/hr IVPB Q1H [facility]GAR Rx#: [id number] Sodium Chloride 0.9% 500 80 ml 500 ml @ 20 mls/hr IV .Q24H [facility]GAR Rx#:[id number] Intake, IV Titration 259.204 73.167 308.64 Amount Diltiazem 125 mg In 90.00 73.167 72.25 Sodium Chloride 0.9% 100 ml @ 10 MG/HR 10 mls/hr IV .[id number] [facility]GAR Rx#: [id number] Heparin Sod,Pork in 0.45% 169.204 236.39 NaCl 25,000 unit In 0.45 % NaCl 1 250ml.bag @ 12 UNITS/KG/HR 7.675 mls/hr IV .Q24H [facility]GAR Rx#: [id number] Oral 320 Output: Urine 1250 735 50 Other: Voiding Method External Catheter External Catheter # Bowel Movements 0 0 - Exam GENERAL EXAM: Alert, 63-year-old male, BiPAP 12/5 and 60% FiO2, resting in bed, in no apparent distress. HEAD: Normocephalic. EYES: Normal reaction of pupils, equal size. NOSE: Clear with pink turbinates. THROAT: No erythema or exudates. NECK: No masses, no JVD. CHEST: No chest wall deformity. LUNGS: Equal air entry with bilateral scattered rhonchi, crackles in the posterior bases. Diminished. CVS: S1 and S2 normal with no audible murmur, irregular rhythm. ABDOMEN: No hepatosplenomegaly, normal bowel sounds, no guarding or rigidity. SPINE: No scoliosis or deformity SKIN: No rashes CENTRAL NERVOUS SYSTEM: No focal deficits, tone is normal in all 4 extremities. EXTREMITIES: There is no peripheral edema. No clubbing, no cyanosis. Peripheral pulses are intact. - Labs CBC & Chem 7: 05/30/23 03:28 05/30/23 03:28 Labs: Abnormal Lab Results - Last 24 Hours (Table) 05/29/23 05/29/23 05/29/23 Range/Units 09:35 09:35 09:35 WBC 14.2 H (3.8-10.6) k/uL RBC 3.73 L (4.30-5.90) m/uL Hgb 9.3 L (13.0-17.5) gm/dL Hct 28.1 L (39.0-53.0) % MCV 75.2 L (80.0-100.0) fL MCH 24.8 L (25.0-35.0) pg Neutrophils # 12.9 H (1.3-7.7) k/uL Lymphocytes # 0.5 L (1.0-4.8) k/uL APTT 35.8 H (22.0-30.0) sec BUN (9-20) mg/dL Creatinine (0.66-1.25) mg/dL Glucose (74-99) mg/dL POC Glucose (mg/dL) (70-110) mg/dL Calcium (8.4-10.2) mg/dL Iron 13 L (65-175) UG/DL TIBC 218 L (228-460) UG/DL % Saturation 5.96 L (15.00-50.00) Transferrin 156.0 L (204.0-354.0) mg/dL Ferritin 862.0 H (22.0-322.0) ng/mL 05/29/23 05/29/23 05/29/23 Range/Units 11:56 17:05 18:37 WBC (3.8-10.6) k/uL RBC (4.30-5.90) m/uL Hgb (13.0-17.5) gm/dL Hct (39.0-53.0) % MCV (80.0-100.0) fL MCH (25.0-35.0) pg Neutrophils # (1.3-7.7) k/uL Lymphocytes # (1.0-4.8) k/uL APTT 57.1 H (22.0-30.0) sec BUN (9-20) mg/dL Creatinine (0.66-1.25) mg/dL Glucose (74-99) mg/dL POC Glucose (mg/dL) 120 H 133 H (70-110) mg/dL Calcium (8.4-10.2) mg/dL Iron (65-175) UG/DL TIBC (228-460) UG/DL % Saturation (15.00-50.00) Transferrin (204.0-354.0) mg/dL Ferritin (22.0-322.0) ng/mL 05/29/23 05/30/23 05/30/23 Range/Units 20:01 03:28 03:28 WBC 11.0 H (3.8-10.6) k/uL RBC 3.78 L (4.30-5.90) m/uL Hgb 9.1 L (13.0-17.5) gm/dL Hct 28.7 L (39.0-53.0) % MCV 76.0 L (80.0-100.0) fL MCH 24.1 L (25.0-35.0) pg Neutrophils # 10.2 H (1.3-7.7) k/uL Lymphocytes # 0.4 L (1.0-4.8) k/uL APTT 55.4 H (22.0-30.0) sec BUN (9-20) mg/dL Creatinine (0.66-1.25) mg/dL Glucose (74-99) mg/dL POC Glucose (mg/dL) 138 H (70-110) mg/dL Calcium (8.4-10.2) mg/dL Iron (65-175) UG/DL TIBC (228-460) UG/DL % Saturation (15.00-50.00) Transferrin (204.0-354.0) mg/dL Ferritin (22.0-322.0) ng/mL 05/30/23 05/30/23 Range/Units 03:28 06:22 WBC (3.8-10.6) k/uL RBC (4.30-5.90) m/uL Hgb (13.0-17.5) gm/dL Hct (39.0-53.0) % MCV (80.0-100.0) fL MCH (25.0-35.0) pg Neutrophils # (1.3-7.7) k/uL Lymphocytes # (1.0-4.8) k/uL APTT (22.0-30.0) sec BUN 46 H (9-20) mg/dL Creatinine 2.97 H (0.66-1.25) mg/dL Glucose 112 H (74-99) mg/dL POC Glucose (mg/dL) 111 H (70-110) mg/dL Calcium 8.3 L (8.4-10.2) mg/dL Iron (65-175) UG/DL TIBC (228-460) UG/DL % Saturation (15.00-50.00) Transferrin (204.0-354.0) mg/dL Ferritin (22.0-322.0) ng/mL Assessment and Plan Assessment: Shortness of breath possibly related to an acute exacerbation of chronic obstructive pulmonary disease. Chest x-ray shows no acute pulmonary process. The patient is also quite anxious and hypertensive. VQ scan revealed low probability for pulmonary embolism. CT scan of the chest without contrast revealed minimal airspace opacity of the lung bases, trace bilateral pleural effusions, scattered new pulmonary nodules from -2023 correlate for infectious/inflammatory process. Atrial fibrillation with a rapid ventricular response Acute hypoxemic respiratory failure secondary to fluid volume overload, congestive heart failure, echocardiogram pending Acute kidney injury, presenting creatinine greater than 6.0 secondary to obstructive uropathy and increased amounts of ibuprofen, improving and down to 2.97 Received first treatment for bladder cancer on 05/23/2023. Recent CT scan reveals findings of progression of disease with left lateral bladder wall eccentric thickening with partial obstruction of the left ureteral ureter and mild left hydronephrosis. Hydronephrosis is mildly progressed since January 2023. New segment 3 liver lesion concerning metastatic disease. Right lower lobe and increasing size of left lower lobe pulmonary nodules. Increase size of retroperitoneal lymph node at the level of the left kidney and left pelvic sidewall nodes. 4 mm sclerotic focus of the right inferior pubic ramus possible CS metastatic disease Former heavy smoker quit in January 2023 Former heavy drinker quit in January 2023 Anxiety Hypertension Plan: The patient was seen and evaluated Chest x-ray, labs and medications reviewed Continue bronchodilators, prednisone Currently on a Cardizem drip Currently on a heparin drip Titrate down the FiO2 as tolerated Continue to monitor closely in the intensive care unit The patient prefers to stay a full code States would not want long-term life support or PEG tube placement We will continue to follow I have personally seen and examined the patient, performed the documentation and the assessment and plan as written. Number of minutes spent on the visit: 10.
[2023-05-30] MEDS: FUROSEMIDE 10 MG/ML 2 ML VIAL IV SCH (10:36)
[2023-05-30 11:36] LABS: Glucose,Whole Blood 159 mg/dL (70-110)
[2023-05-30] MEDS: SODIUM FERRIC GLUCONAT-SUCROSE 125 MG in SODIUM CHLORIDE 0.9% 100 ML IVPB SCH (12:06)
--- NOTE | 2023-05-30 12:41 | P.PN ---
Subjective Progress Note Date: 05/27/23 63-year-old male patient with a history of bladder mass and left hydronephrosis. He had undergone a TURP and attempted left-sided stent insertion by urology on February 06, 2023. CAT scan of the chest abdomen pelvis from April 2023 revealed findings of progression of disease with left lateral bladder wall eccentric thickening with partial obstruction of left ureter and mild left hydronephrosis. New segment 3 liver lesion concerning metastatic disease. Right lower lobe and increasing size of the left lower lobe pulmonary nodules. Increased retroperitoneal lymph node at the level of the left kidney and left pelvis at sidewall nodes. Indeterminate right inferior pubic ramus 4 mm sclerotic focus. Follow-up imaging for osseous metastatic disease. He had undergone his first treatment for the bladder cancer on May 23, 2023. Yesterday he was seen by Dr. Hankins who referred him here for CAT scan to rule out pulmonary embolism due to his complaints of shortness of breath. Ever, he w as find to have significant elevation in his creatinine at 6.82. He did undergo ventilation/perfusion study instead revealed low evidence for pulmonary embolism. He is currently on a heparin drip. X-ray revealed no acute cardiopulmonary process. Evidence of COPD. White count 9.0. Hemoglobin 9.7. Platelets 263. Sodium 136. Potassium 5.4. Bicarb 14. BUN 49. Creatinine 6.3. Glucose 202. Urinalysis with large blood, greater than 182 RBCs. Viral screen negative. The patient was a heavy smoker and drinker for over 40 years however quit smoking and drinking in January 2023. He is seen today in consultation on the regular medical floor. He is currently resting in bed. Awake and alert in no acute distress. He is quite anxious and nervous. He is somewhat of a poor historian. He states he had been taking a lot of ibuprofen due to the pain in his bladder area and down his left leg. Patient seen and evaluated in room at bedside; labs reviewed and discussed with patient Creatinine continues ti trend up and is at 6.4 this morning; K is elevated at 5.9 Nephrology evaluated patient and plan is to start IV HCO3 infusion, given acidosis and hyperkalemia Urology consulted due to hydronephrosis on ultrasound, may need nephrostomy tube placement as stenting is likely not an option given his bladder cancer. Objective - Vital Signs Vital signs: Vital Signs Temp 97.7 F 05/26/23 20:00 Pulse 97 05/26/23 23:33 Resp 24 05/26/23 21:34 BP 167/87 05/26/23 23:33 Pulse Ox 96 05/26/23 23:00 FiO2 Intake & Output 05/26/23 05/26/23 05/27/23 06:59 18:59 06:59 Intake Total 86.532 1780.408 272.575 Output Total 400 100 Balance -293.840 3199.408 272.575 Weight 63.957 kg 63.957 kg Intake: Intake, IV Titration 86.532 1780.408 32.575 Amount Heparin Sod,Pork in 0.45% 86.532 120.408 32.575 NaCl 25,000 unit In 0.45 % NaCl 1 250ml.bag @ 18 UNITS/KG/HR 11.512 mls/hr IV .[id number] [facility] Rx#: [id number] Sodium Chloride 0.9% 1, 1660 000 ml @ 130 mls/hr IV . Q7H42M [facility] Rx#:[id number] Oral 240 Output: Urine 400 100 Other: Voiding Method Urinal Toilet Toilet Urinal # Voids 1 - Exam GENERAL EXAM: Alert, anxious, thin 63-year-old male, unkept, on room air, comfortable in no apparent distress. HEAD: Normocephalic. EYES: Normal reaction of pupils, equal size. NOSE: Clear with pink turbinates. THROAT: No erythema or exudates. NECK: No masses, no JVD. CHEST: No chest wall deformity. LUNGS: Equal air entry with no crackles, wheeze, rhonchi or dullness. CVS: S1 and S2 normal with no audible murmur, regular rhythm. ABDOMEN: No hepatosplenomegaly, normal bowel sounds, no guarding or rigidity. SPINE: No scoliosis or deformity SKIN: No rashes CENTRAL NERVOUS SYSTEM: No focal deficits, tone is normal in all 4 extremities. EXTREMITIES: There is no peripheral edema. No clubbing, no cyanosis. Peripheral pulses are intact. - Labs CBC & Chem 7: 05/30/23 03:28 05/30/23 03:28 Labs: Abnormal Lab Results - Last 24 Hours (Table) 05/26/23 05/26/23 05/26/23 Range/Units 05:05 05:05 05:05 RBC 4.17 L (4.40-5.60) X 10*6/uL Hgb 9.7 L (13.0-17.0) g/dL Hct 31.8 L (39.6-50.0) % MCV 76.3 L (80.0-97.0) FL MCH 23.3 L (27.0-32.0) pg MCHC 30.5 L (32.0-37.0) g/dL RDW 14.6 H (11.5-14.5) % Immature Gran # 0.06 H (0.00-0.04) X 10*3/uL Neutrophils # 8.58 H (1.80-7.70) X 10*3/uL Lymphocytes # 0.31 L (0.90-5.00) X 10*3/uL Monocytes # 0.04 L (0.20-1.00) X 10*3/uL Eosinophils # 0 L (0.04-0.35) X 10*3/uL APTT 82.1 H (22.0-30.0) sec Carbon Dioxide 13.6 L (21.6-31.8) mmol/L Anion Gap 18.40 H (4.00-12.00) mmol/L BUN 48.9 H (9.0-27.0) mg/dL Creatinine 6.3 H (0.6-1.5) mg/dL Est GFR (CKD-EPI) 9 L (>=60) BUN/Creatinine Ratio 7.76 L (12.00-20.00) Ratio Glucose 202 H (70-110) mg/dL Total Bilirubin <0.2 L (0.3-1.2) mg/dL Alkaline Phosphatase 138 H (41-126) U/L Total Protein 5.9 L (6.2-8.2) g/dL Albumin 3.5 L (3.8-4.9) g/dL Albumin/Globulin Ratio 1.46 L (1.60-3.17) Ratio Urine Blood (Negative) Urine RBC (0-5) /hpf Urine Bacteria (None) /hpf Urine Mucus (None) /hpf 05/26/23 05/26/23 Range/Units 12:14 13:09 RBC (4.40-5.60) X 10*6/uL Hgb (13.0-17.0) g/dL Hct (39.6-50.0) % MCV (80.0-97.0) FL MCH (27.0-32.0) pg MCHC (32.0-37.0) g/dL RDW (11.5-14.5) % Immature Gran # (0.00-0.04) X 10*3/uL Neutrophils # (1.80-7.70) X 10*3/uL Lymphocytes # (0.90-5.00) X 10*3/uL Monocytes # (0.20-1.00) X 10*3/uL Eosinophils # (0.04-0.35) X 10*3/uL APTT 56.4 H (22.0-30.0) sec Carbon Dioxide (21.6-31.8) mmol/L Anion Gap (4.00-12.00) mmol/L BUN (9.0-27.0) mg/dL Creatinine (0.6-1.5) mg/dL Est GFR (CKD-EPI) (>=60) BUN/Creatinine Ratio (12.00-20.00) Ratio Glucose (70-110) mg/dL Total Bilirubin (0.3-1.2) mg/dL Alkaline Phosphatase (41-126) U/L Total Protein (6.2-8.2) g/dL Albumin (3.8-4.9) g/dL Albumin/Globulin Ratio (1.60-3.17) Ratio Urine Blood Large H (Negative) Urine RBC >182 H (0-5) /hpf Urine Bacteria Rare H (None) /hpf Urine Mucus Rare H (None) /hpf Assessment and Plan Assessment: 1. Acute exacerbation COPD -- Patient received IV Solu-Medrol 125 mg IV x 1 in ED; we will continue with 40 mg IV every 8 hours; DuoNeb nebulizer treatment; Symbicort inhaler 2. Dyspnea; rule out PE -- Patient has been placed on IV heparin and VQ scan is ordered by pulmonary service 3. Acute renal injury; creatinine at 6.3 upon admission -- Patient has been placed on IV fluid hydration; renal and bladder ultrasound is ordered and pending; will monitor strict LAUREN's, daily weights, renal function electrolytes; avoid nephrotoxins and hypotension -- Nephrology is consulted 4. Uncontrolled hypertension; patient takes Norvasc 5 mg daily which has been resumed; will order IV hydralazine 20 mg IV every 4 hours as needed; continue to monitor blood pressure closely and make adjustment in maintenance therapy " 5. History of bladder CA Received first treatment for bladder cancer on 05/23/2023. Recent CT scan reveals findings of progression of disease with left lateral bladder wall eccentric thickening with partial obstruction of the left ureteral ureter and mild left hydronephrosis. Hydronephrosis is mildly progressed since January 2023. New segment 3 liver lesion concerning metastatic disease. Right lower lobe and increasing size of left lower lobe pulmonary nodules. Increase size of retroperitoneal lymph node at the level of the left kidney and left pelvic sidewall nodes. 4 mm sclerotic focus of the right inferior pubic ramus possible CS metastatic disease -- Oncology consulted DVT prophylaxis; SCDs/IV heparin CODE STATUS; full code
--- NOTE | 2023-05-30 15:58 | P.PN ---
Subjective Progress Note Date: 05/30/23 Principal diagnosis: Acute renal failure. Urothelial carcinoma on immunotherapy. In follow-up today patient denies palpitations or chest pain. SOB persists but is stable on bipap. Patient is able to speak but note slightly labored the longer he talks. No fevers Objective - Vital Signs Vital signs: Vital Signs Temp 98.7 F 05/30/23 04:00 Pulse 93 05/30/23 15:00 Resp 22 05/30/23 15:00 BP 120/88 05/30/23 15:00 Pulse Ox 92 L 05/30/23 15:00 FiO2 90 05/30/23 12:06 Intake & Output 05/29/23 05/30/23 05/30/23 18:59 06:59 18:59 Intake Total 859.204 273.167 736.723 Output Total 1250 735 250 Balance -390.796 -461.833 486.723 Weight 70.4 kg Intake: IV 280 200 200 0.9 200 100 Potassium Chloride 10 meq 200 In Water For Injection 1 100ml.bag @ 100 mls/hr IVPB Q1H [facility] Rx#: [id number] Sodium Chloride 0.9% 500 80 ml 500 ml @ 20 mls/hr IV .Q24H [facility] Rx#:[id number] Sodium Ferric Gluconat- 100 Sucrose 125 mg In Sodium Chloride 0.9% 100 ml @ 100 mls/hr IVPB DAILY [facility] Rx#:[id number] Intake, IV Titration 259.204 73.167 336.723 Amount Diltiazem 125 mg In 90.00 73.167 100.333 Sodium Chloride 0.9% 100 ml @ 10 MG/HR 10 mls/hr IV .[id number] [facility] Rx#: [id number] Heparin Sod,Pork in 0.45% 169.204 236.39 NaCl 25,000 unit In 0.45 % NaCl 1 250ml.bag @ 12 UNITS/KG/HR 7.675 mls/hr IV .Q24H [facility] Rx#: [id number] Oral 320 200 Output: Urine 1250 735 250 Other: Voiding Method External Catheter External Catheter External Catheter # Voids 1 # Bowel Movements 0 0 1 - Constitutional General appearance: Present: cooperative, mild distress, thin - EENT Eyes: Present: anicteric sclerae, EOMI ENT: Present: hearing grossly normal - Respiratory Details: intercostal retractions, barrel chest, exp rhonchi R>L - Cardiovascular Rhythm: irregularly irregular Heart sounds: normal: S1, S2 Abnormal Heart Sounds: Absent: systolic murmur, diastolic murmur, rub, S3 Gallop, S4 Gallop, click, other - Peripheral edema leg Peripheral Edema: bilateral: None - Gastrointestinal General gastrointestinal: Present: soft - Integumentary Integumentary: Present: normal - Neurologic Neurologic: Present: CNII-XII intact - Musculoskeletal Musculoskeletal: Present: generalized weakness, strength equal bilaterally - Psychiatric Psychiatric: Present: A&O x's 3, appropriate affect, intact judgment & insight - Labs CBC & Chem 7: 05/30/23 03:28 05/30/23 03:28 Labs: Abnormal Lab Results - Last 24 Hours (Table) 05/29/23 05/29/23 05/29/23 Range/Units 09:35 17:05 18:37 WBC (3.8-10.6) k/uL RBC (4.30-5.90) m/uL Hgb (13.0-17.5) gm/dL Hct (39.0-53.0) % MCV (80.0-100.0) fL MCH (25.0-35.0) pg Neutrophils # (1.3-7.7) k/uL Lymphocytes # (1.0-4.8) k/uL APTT 57.1 H (22.0-30.0) sec BUN (9-20) mg/dL Creatinine (0.66-1.25) mg/dL Glucose (74-99) mg/dL POC Glucose (mg/dL) 133 H (70-110) mg/dL Calcium (8.4-10.2) mg/dL Iron 13 L (65-175) UG/DL TIBC 218 L (228-460) UG/DL % Saturation 5.96 L (15.00-50.00) Transferrin 156.0 L (204.0-354.0) mg/dL Ferritin 862.0 H (22.0-322.0) ng/mL 05/29/23 05/30/23 05/30/23 Range/Units 20:01 03:28 03:28 WBC 11.0 H (3.8-10.6) k/uL RBC 3.78 L (4.30-5.90) m/uL Hgb 9.1 L (13.0-17.5) gm/dL Hct 28.7 L (39.0-53.0) % MCV 76.0 L (80.0-100.0) fL MCH 24.1 L (25.0-35.0) pg Neutrophils # 10.2 H (1.3-7.7) k/uL Lymphocytes # 0.4 L (1.0-4.8) k/uL APTT 55.4 H (22.0-30.0) sec BUN (9-20) mg/dL Creatinine (0.66-1.25) mg/dL Glucose (74-99) mg/dL POC Glucose (mg/dL) 138 H (70-110) mg/dL Calcium (8.4-10.2) mg/dL Iron (65-175) UG/DL TIBC (228-460) UG/DL % Saturation (15.00-50.00) Transferrin (204.0-354.0) mg/dL Ferritin (22.0-322.0) ng/mL 05/30/23 05/30/23 05/30/23 Range/Units 03:28 06:22 11:35 WBC (3.8-10.6) k/uL RBC (4.30-5.90) m/uL Hgb (13.0-17.5) gm/dL Hct (39.0-53.0) % MCV (80.0-100.0) fL MCH (25.0-35.0) pg Neutrophils # (1.3-7.7) k/uL Lymphocytes # (1.0-4.8) k/uL APTT (22.0-30.0) sec BUN 46 H (9-20) mg/dL Creatinine 2.97 H (0.66-1.25) mg/dL Glucose 112 H (74-99) mg/dL POC Glucose (mg/dL) 111 H 159 H (70-110) mg/dL Calcium 8.3 L (8.4-10.2) mg/dL Iron (65-175) UG/DL TIBC (228-460) UG/DL % Saturation (15.00-50.00) Transferrin (204.0-354.0) mg/dL Ferritin (22.0-322.0) ng/mL Assessment and Plan (1) Acute exacerbation of chronic obstructive pulmonary disease Current Visit: Yes Status: Acute Priority: High Code(s): J44.1 - CHRONIC OBSTRUCTIVE PULMONARY DISEASE W (ACUTE) EXACERBATION SNOMED Code(s): 634598013 (2) Acute renal failure Current Visit: Yes Status: Acute Priority: High Code(s): N17.9 - ACUTE KIDNEY FAILURE, UNSPECIFIED SNOMED Code(s): 76317299 (3) Bladder cancer Current Visit: Yes Status: Acute Priority: High Code(s): C67.9 - MALIGNANT NEOPLASM OF BLADDER, UNSPECIFIED SNOMED Code(s): 440078949 Plan: Acute hypoxic resp failure -Pt seen in ICU, bipap -Pulm/Critical Care mgmt of pt A-fib with RVR, elevated BNP -Cardiology following, medically managing -Patient is currently on a heparin drip. -Agree with ECHO in the near future. Assess for possible myocarditis from IO, extremely rare side effect but, reasonable to assess for the same COPD exacerbation -Pulmonary is following. -Pt on treatment for the same Acute renal failure -There was discussion about possible nephrostomy tubes, felt possible ureteral obstruction from disease. Creatinine worsened today -Nephrology following, pending recs as pt hospital course progresses -Urothelial carcinoma -High-resolution CT results reviewed with the patient, no evidence of pneumoni tis. -Treatment for malignancy is on hold at this time. Discussed with pt and family at bedside. There is discussion about pt changing code status, which is reasonable. This will be reported to be documented once paperwork is in place-there are some medical POA documents that need to be taken care of per family. Anemia -Microcytic, hypochromic -IV iron ordered Doctor attests: I performed a history and physical examination of this patient, developed impression and plan of care. Discussed with dictator. I agree with dictators note, documented as a scribe.
--- NOTE | 2023-05-30 16:11 | P.PN ---
Subjective Patient is seen for follow-up for acute kidney injury. Renal function had been improving however serum creatinine has increased today to 2.9. Patient has had good urine output. 24-hour urine output at 198 5 mL Patient remains on Cardizem drip for A-fib with RVR. No documented hypotension noted. Patient is being followed by urology. There are plans for nephrostomy tube placement if renal function continues to worsen. Objective - Vital Signs Vital signs: Vital Signs Temp 98.7 F 05/30/23 04:00 Pulse 93 05/30/23 15:00 Resp 22 05/30/23 15:00 BP 120/88 05/30/23 15:00 Pulse Ox 92 L 05/30/23 15:00 FiO2 90 05/30/23 12:06 Intake & Output 05/29/23 05/30/23 05/30/23 18:59 06:59 18:59 Intake Total 859.204 273.167 736.723 Output Total 1250 735 250 Balance -390.796 -461.833 486.723 Weight 70.4 kg Intake: IV 280 200 200 0.9 200 100 Potassium Chloride 10 meq 200 In Water For Injection 1 100ml.bag @ 100 mls/hr IVPB Q1H [facility] Rx#: [id number] Sodium Chloride 0.9% 500 80 ml 500 ml @ 20 mls/hr IV .Q24H [facility] Rx#:[id number] Sodium Ferric Gluconat- 100 Sucrose 125 mg In Sodium Chloride 0.9% 100 ml @ 100 mls/hr IVPB DAILY [facility] Rx#:[id number] Intake, IV Titration 259.204 73.167 336.723 Amount Diltiazem 125 mg In 90.00 73.167 100.333 Sodium Chloride 0.9% 100 ml @ 10 MG/HR 10 mls/hr IV .[id number] [facility] Rx#: [id number] Heparin Sod,Pork in 0.45% 169.204 236.39 NaCl 25,000 unit In 0.45 % NaCl 1 250ml.bag @ 12 UNITS/KG/HR 7.675 mls/hr IV .Q24H [facility] Rx#: [id number] Oral 320 200 Output: Urine 1250 735 250 Other: Voiding Method External Catheter External Catheter External Catheter # Voids 1 # Bowel Movements 0 0 1 - Exam Patient is awake, comfortable, no acute distress Examination of the heart S1 and S2 Examination of the lungs bilateral breath sounds are heard, decreased breath sounds at the bases. Abdomen is soft nontender Examination lower extremities shows no evidence of edema [employer] exam grossly intact - Labs CBC & Chem 7: 05/30/23 03:28 05/30/23 03:28 Labs: Abnormal Lab Results - Last 24 Hours (Table) 05/29/23 05/29/23 05/29/23 Range/Units 09:35 17:05 18:37 WBC (3.8-10.6) k/uL RBC (4.30-5.90) m/uL Hgb (13.0-17.5) gm/dL Hct (39.0-53.0) % MCV (80.0-100.0) fL MCH (25.0-35.0) pg Neutrophils # (1.3-7.7) k/uL Lymphocytes # (1.0-4.8) k/uL APTT 57.1 H (22.0-30.0) sec BUN (9-20) mg/dL Creatinine (0.66-1.25) mg/dL Glucose (74-99) mg/dL POC Glucose (mg/dL) 133 H (70-110) mg/dL Calcium (8.4-10.2) mg/dL Iron 13 L (65-175) UG/DL TIBC 218 L (228-460) UG/DL % Saturation 5.96 L (15.00-50.00) Transferrin 156.0 L (204.0-354.0) mg/dL Ferritin 862.0 H (22.0-322.0) ng/mL 05/29/23 05/30/23 05/30/23 Range/Units 20:01 03:28 03:28 WBC 11.0 H (3.8-10.6) k/uL RBC 3.78 L (4.30-5.90) m/uL Hgb 9.1 L (13.0-17.5) gm/dL Hct 28.7 L (39.0-53.0) % MCV 76.0 L (80.0-100.0) fL MCH 24.1 L (25.0-35.0) pg Neutrophils # 10.2 H (1.3-7.7) k/uL Lymphocytes # 0.4 L (1.0-4.8) k/uL APTT 55.4 H (22.0-30.0) sec BUN (9-20) mg/dL Creatinine (0.66-1.25) mg/dL Glucose (74-99) mg/dL POC Glucose (mg/dL) 138 H (70-110) mg/dL Calcium (8.4-10.2) mg/dL Iron (65-175) UG/DL TIBC (228-460) UG/DL % Saturation (15.00-50.00) Transferrin (204.0-354.0) mg/dL Ferritin (22.0-322.0) ng/mL 05/30/23 05/30/23 05/30/23 Range/Units 03:28 06:22 11:35 WBC (3.8-10.6) k/uL RBC (4.30-5.90) m/uL Hgb (13.0-17.5) gm/dL Hct (39.0-53.0) % MCV (80.0-100.0) fL MCH (25.0-35.0) pg Neutrophils # (1.3-7.7) k/uL Lymphocytes # (1.0-4.8) k/uL APTT (22.0-30.0) sec BUN 46 H (9-20) mg/dL Creatinine 2.97 H (0.66-1.25) mg/dL Glucose 112 H (74-99) mg/dL POC Glucose (mg/dL) 111 H 159 H (70-110) mg/dL Calcium 8.3 L (8.4-10.2) mg/dL Iron (65-175) UG/DL TIBC (228-460) UG/DL % Saturation (15.00-50.00) Transferrin (204.0-354.0) mg/dL Ferritin (22.0-322.0) ng/mL Assessment and Plan Assessment: 1. Non-oliguric ARNALDO, likely ATN from chronic NSAID use and obstructive uropathy. Baseline creatinine 0.9, presented 6.8, improved to 1.7 today. Status post IV fluids. Renal ultrasound shows moderate left hydronephrosis. No plans for ureteral stents, nephrostomy tube was being considered however renal function had improved but serum creatinine increased again to 2.9 mg/dL. Patient will need to be transferred to an outside institution for nephrostomy tube placement if needed. 2. Bladder Cancer currently undergoing chemotherapy. 3. Metabolic Acidosis 4. COPD Exacerbation-Pulmonology following. V/Q low probability for PE 5. Hyperkalemia due to a GI and obstructive uropathy. Improved 6. A. fib with RVR 7. Volume overload Plan: Continue off of IV fluids Maintain scheduled dose of IV Lasix Repeat labs in a.m. Continue to avoid nephrotoxic agents.
[2023-05-30 16:48] LABS: Glucose,Whole Blood 162 mg/dL (70-110)
[2023-05-30] MEDS: METOPROLOL TARTRATE 50 MG TAB PO SCH (20:10)
[2023-05-30] MEDS: FUROSEMIDE 10 MG/ML 4 ML VIAL IV SCH (20:12)
--- NOTE | 2023-05-30 21:00 | XR ---
EXAMINATION TYPE: XR chest 1V DATE OF EXAM: 05/30/2023 8:52 PM CLINICAL INDICATION:Male, 63 years old with history of SOB; COMPARISON: Chest radiographs from 05/30/2023 TECHNIQUE: XR chest 1V Frontal view of the chest. FINDINGS: Lungs/Pleura: Multifocal airspace opacities. No evidence of pneumothorax or pleural effusion. Pulmonary vascularity: Unremarkable. Heart/mediastinum: Cardiomediastinal silhouette is unremarkable. Musculoskeletal: No acute osseous pathology. Other findings: None IMPRESSION: Multifocal airspace opacities concerning for pneumonia.
[2023-05-30 21:11] LABS: Glucose,Whole Blood 176 mg/dL (70-110)
[2023-05-31 06:48] LABS: Basophils % (A) 0 %; Eosinophils # (A) 0.1 k/uL (0-0.7); Eosinophils % (A) 1 %; HCT 27.4 % (39.0-53.0); HGB 8.6 gm/dL (13.0-17.5); Lymphocytes # (A) 0.6 k/uL (1.0-4.8); Lymphocytes % (A) 6 %; MCH 23.9 pg (25.0-35.0); MCHC 31.3 g/dL (31.0-37.0); MCV 76.5 fL (80.0-100.0); Mean Platelet Volume 11.5; Microcytosis Slight; Monocytes # (A) 0.3 k/uL (0-1.0); Monocytes % (A) 3 %; Neutrophils # (A) 8.9 k/uL (1.3-7.7); Neutrophils % (A) 90 %; Platelet Count 172 k/uL (150-450); RBC 3.58 m/uL (4.30-5.90); RDW 14.7 % (11.5-15.5); WBC 9.9 k/uL (3.8-10.6)
[2023-05-31 07:03] LABS: Glucose,Whole Blood 103 mg/dL (70-110)
[2023-05-31 08:00] LABS: African American GFR (CKD) 13 (>60 ml/min/1.73 sqM); Anion Gap 14 mmol/L; Blood Urea Nitrogen 77 mg/dL (9-20); Calcium 8.4 mg/dL (8.4-10.2); Carbon Dioxide 24 mmol/L (22-30); Chloride 100 mmol/L (98-107); Glucose 101 mg/dL (74-99); Non-African American GFR(CKD) 11 (>60 ml/min/1.73 sqM); Potassium 4.2 mmol/L (3.5-5.1); Sodium 138 mmol/L (137-145)
--- NOTE | 2023-05-31 08:25 | XR ---
EXAMINATION TYPE: XR chest 1V portable DATE OF EXAM: 05/31/2023 Comparison: 05/30/2023 Clinical History: 63-year-old male worsening bilateral infiltrates Findings: Heart is enlarged. Hyperinflation. Diffuse interstitial and patchy confluent airspace opacities espec ially in the mid to lower lungs. Small effusions and Timi B lines. Overall similar appearance. Impression: COPD with fairly similar superimposed CHF and patchy pulmonary edema. Small effusions.
--- NOTE | 2023-05-31 09:01 | P.PN ---
Subjective Progress Note Date: 05/31/23 The patient is a 63-year-old male who is currently admitted with hypoxic respiratory failure and A-fib with RVR. The patient has had poor rate control and therefore was started on oral amiodarone. Cardizem is currently being titrated and is currently at 3. Heart rates are in the 120s via telemetry monit or. At the time of my exam the patient is resting comfortably on high flow nasal cannula. He appears less agitated and labored. He denies any pain or pressure. No current difficulty breathing. GENERAL: Ill-appearing, well-nourished and in no acute distress. NECK: Supple without JVD or thyromegaly. LUNGS: Breath sounds diminished to auscultation bilaterally. Respiration equal and unlabored. Coarse lung sounds HEART: Irregular rate and rhythm without murmurs, rubs or gallops. S1 and S2 heard. EXTREMITIES: Normal range of motion, no edema. No clubbing or cyanosis. Peripheral pulses intact and strong. TELEMETRY: A-fib with RVR. Heart rates averaging in the one teens, however episodes of RVR up into the 140s with agitation and difficulty breathing. LABS: WBC 9.9, hemoglobin 8.6, hematocrit 27.4, platelet 172, sodium 138, potassium 4.2, BUN 77, creatinine 5.14 IMPRESSION: A-fib with RVR, poor rate control Hypoxic respiratory failure, on high flow nasal cannula Acute kidney injury, worsening Bladder cancer PLAN: Continue current dose of metoprolol and amiodarone Titrate Cardizem drip as tolerated Continue aggressive pulmonary hygiene Further recommendations to be based upon clinical course I am dictating on behalf of Dr Babak Lentz's history/physical and assessment/plan. Objective - Vital Signs Vital signs: Vital Signs Temp 97.9 F 05/31/23 08:00 Pulse 126 H 05/31/23 08:00 Resp 20 05/31/23 08:00 BP 126/88 05/31/23 08:00 Pulse Ox 90 L 05/31/23 08:00 FiO2 92 05/31/23 07:41 Intake & Output 05/30/23 05/31/23 05/31/23 18:59 06:59 18:59 Intake Total 901.640 350.000 173.936 Output Total 450 1100 Balance 451.640 -750.000 173.936 Weight 71.2 kg Intake: IV 200 0 100 0.9 100 0 0 Sodium Ferric Gluconat- 100 100 Sucrose 125 mg In Sodium Chloride 0.9% 100 ml @ 100 mls/hr IVPB DAILY [facility] Rx#:[id number] Intake, IV Titration 351.640 350.000 73.936 Amount Diltiazem 125 mg In 115.250 100.000 Sodium Chloride 0.9% 100 ml @ 10 MG/HR 10 mls/hr IV .[id number] [facility] Rx#: [id number] Heparin Sod,Pork in 0.45% 236.39 250 73.936 NaCl 25,000 unit In 0.45 % NaCl 1 250ml.bag @ 12 UNITS/KG/HR 7.675 mls/hr IV .Q24H [facility] Rx#: [id number] Oral 350 Output: Urine 450 1100 Other: Voiding Method External Catheter External Catheter # Voids 1 # Bowel Movements 1 - Labs CBC & Chem 7: 05/31/23 06:34 05/31/23 06:34 Labs: Abnormal Lab Results - Last 24 Hours (Table) 05/30/23 05/30/23 05/30/23 Range/Units 11:35 16:46 21:09 RBC (4.30-5.90) m/uL Hgb (13.0-17.5) gm/dL Hct (39.0-53.0) % MCV (80.0-100.0) fL MCH (25.0-35.0) pg Neutrophils # (1.3-7.7) k/uL Lymphocytes # (1.0-4.8) k/uL APTT (22.0-30.0) sec BUN (9-20) mg/dL Creatinine (0.66-1.25) mg/dL Glucose (74-99) mg/dL POC Glucose (mg/dL) 159 H 162 H 176 H (70-110) mg/dL 05/31/23 05/31/23 05/31/23 Range/Units 06:34 06:34 06:34 RBC 3.58 L (4.30-5.90) m/uL Hgb 8.6 L (13.0-17.5) gm/dL Hct 27.4 L (39.0-53.0) % MCV 76.5 L (80.0-100.0) fL MCH 23.9 L (25.0-35.0) pg Neutrophils # 8.9 H (1.3-7.7) k/uL Lymphocytes # 0.6 L (1.0-4.8) k/uL APTT 92.6 H (22.0-30.0) sec BUN 77 H (9-20) mg/dL Creatinine 5.14 H (0.66-1.25) mg/dL Glucose 101 H (74-99) mg/dL POC Glucose (mg/dL) (70-110) mg/dL
--- NOTE | 2023-05-31 10:40 | P.PN ---
Subjective Progress Note Date: 05/31/23 This is a 63-year-old male patient with a history of bladder mass and left hydronephrosis. He had undergone a TURP and attempted left-sided stent insertion by urology on February 06, 2023. CAT scan of the chest abdomen pelvis from April 2023 revealed findings of progression of disease with left lateral bladder wall eccentric thickening with partial obstruction of left ureter and mild left hydronephrosis. New segment 3 liver lesion concerning metastatic disease. Right lower lobe and increasing size of the left lower lobe pulmonary nodules. Increased retroperitoneal lymph node at the level of the left kidney and left pelvis at sidewall nodes. Indeterminate right inferior pubic ramus 4 mm sclerotic focus. Follow-up imaging for osseous metastatic disease. He had undergone his first treatment for the bladder cancer on May 23, 2023. Yesterday he was seen by Dr. Hankins who referred him here for CAT scan to rule out pulmonary embolism due to his complaints of shortness of breath. Ever, he was find to have significant elevation in his creatinine at 6.82. He did undergo ventilation/perfusion study instead revealed low evidence for pulmonary embolism. He is currently on a heparin drip. X-ray revealed no acute cardiopulmonary process. Evidence of COPD. White count 9.0. Hemoglobin 9.7. Platelets 263. Sodium 136. Potassium 5.4. Bicarb 14. BUN 49. Creatinine 6.3. Glucose 202. Urinalysis with large blood, greater than 182 RBCs. Viral screen negative. The patient was a heavy smoker and drinker for over 40 years however quit smoking and drinking in January 2023. He is seen today in consultation on the regular medical floor. He is currently resting in bed. Aw isabel and alert in no acute distress. He is quite anxious and nervous. He is somewhat of a poor historian. He states he had been taking a lot of ibuprofen due to the pain in his bladder area and down his left leg. The patient is seen today May 27, 2023 in follow-up on the regular medical floor. He is currently sitting up in bed. Awake and alert in no acute distress. He is maintaining good O2 saturation in the 90s on room air. CT scan of the chest without contrast revealed minimal airspace opacity in the lung bases. Trace bilateral pleural effusions and interlobular septal thickening. No evidence for pulmonary fibrosis. Scattered new pulmonary nodules correlate for infectious/inflammatory process. Renal ultrasound does reveal moderate left and mild right hydronephrosis. Bladder wall mass as seen on previous CT. white count 21.2. Hemoglobin 9.6. Platelets 331. Sodium 138. Potassium 5.9. Bicarb 13. BUN 57. Creatinine 6.4. Glucose 141. Procalcitonin was 0.31. He remains on DuoNeb inhalations, Symbicort, Solu-Medrol. Progress note dated May 28, 2023. The patient is seen today on the general medical floor, room 361. The patient continues on IV heparin, and, amiodarone. The patient apparently developed atrial fibrillation with RVR, and was transferred from the [facility], down to the cardiac floor. He continues on oxygen at 2 L. Saturations are 91 to 93%. He is currently in atrial fibrillation, with rates of between 100 to 110 bpm. Lab data includes a white count 21.3, hemoglobin 9, hematocrit 29, platelet count 327,000. PTT is 28.6. Sodium 142, potassium 4.7, chlorides 112, CO2 19, anion gap 11, BUN 48, creatinine 3.02. Glucose is 108. TSH is normal at 1.1. No recent chest x-ray to report. The patient is seen today February the intensive care unit. He was transferred here following an episode of atrial fibrillation with rapid ventricular response and hypoxemia. He was placed on BiPAP 12/5 and 60% FiO2. He had received Lasix 40 mg IVP x 1. He is now on Cardizem drip at 15 mg/hr. Amiodarone 0.05 mg/min. Currently on a heparin drip. Remains in atrial fibrillation currently. Controlled ventricular response. 7.5. White count 14.7. Hemoglobin 8.8. Platelets 239. Sodium 139. Potassium 3.7. Bicarb 31. BUN 33. Creatinine 1.70. Glucose 117. AST 156. ALT 285. proBNP 9690. Chest x-ray does revealed mild pulmonary edema. The patient is seen today May 30, 2023 in follow-up in the intensive care unit. He is currently again alert. He is maintained on BiPAP 12/5 and 60% FiO2 to maintain O2 saturations in the 90s. He has normal staying at 20 mph. He is continued on Cardizem drip at 15 mg/h. Remains on a heparin drip. Remains in atrial fibrillation. Continued on DuoNeb ventilations, Symbicort, prednisone. Chest x-ray reveals borderline cardiomegaly and COPD with worsening interstitial and patchy opacities. White count 11.0. Hemoglobin 9.1. Platelets 159. Sodium 137. Potassium 4.5. Bicarb 30. BUN 46. Creatinine 2.97. Glucose 112. Is continued on Lasix 20 mg IV every 12 hours. Currently in a negative balance. The patient is seen today May 31, 2023 in follow-up in the intensive care unit. He is currently sitting up in bed. Awake and alert in no acute distress. Having breakfast. He is currently off the BiPAP and on Airvo on 55 L and 94% FiO2. Chest x-ray shows COPD with superimposed congestive heart failure and pulmonary edema with small effusions. He remains in atrial fibrillation with a better controlled ventricular rate. Remains on a Cardizem drip at 10 mg/h. Remains on heparin drip. Receiving iron replacement therapy. White count 9.9. Hemoglobin 8.6. Platelets 172. Sodium 138. Potassium 4.2. Bicarb 24. BUN 77. Creatinine 5.14. Glucose 101. He remains on DuoNeb ventilations, Symbicort, prednisone. Remains on IV diuretics. Currently in a -300 mL balance. Objective - Vital Signs Vital signs: Vital Signs Temp 97.9 F 05/31/23 08:00 Pulse 71 05/31/23 09:00 Resp 18 05/31/23 09:00 BP 144/96 05/31/23 09:00 Pulse Ox 91 L 05/31/23 09:00 FiO2 94 05/31/23 09:00 Intake & Output 05/30/23 05/31/23 05/31/23 18:59 06:59 18:59 Intake Total 901.640 350.000 458.936 Output Total 450 1100 0 Balance 451.640 -750.000 458.936 Weight 71.2 kg Intake: IV 200 0 100 0.9 100 0 0 Sodium Ferric Gluconat- 100 100 Sucrose 125 mg In Sodium Chloride 0.9% 100 ml @ 100 mls/hr IVPB DAILY [facility] Rx#:[id number] Intake, IV Titration 351.640 350.000 118.936 Amount Diltiazem 125 mg In 115.250 100.000 45 Sodium Chloride 0.9% 100 ml @ 10 MG/HR 10 mls/hr IV .[id number] [facility] Rx#: [id number] Heparin Sod,Pork in 0.45% 236.39 250 73.936 NaCl 25,000 unit In 0.45 % NaCl 1 250ml.bag @ 12 UNITS/KG/HR 7.675 mls/hr IV .Q24H [facility] Rx#: [id number] Oral 350 240 Output: Urine 450 1100 0 Other: Voiding Method External Catheter External Catheter External Catheter # Voids 1 # Bowel Movements 1 - Exam GENERAL EXAM: Alert, 63-year-old male, on Airvo high flow oxygen at 55 L 94% FiO2, resting in bed, in mild respiratory distress. HEAD: Normocephalic. EYES: Normal reaction of pupils, equal size. NOSE: Clear with pink turbinates. THROAT: No erythema or exudates. NECK: No masses, no JVD. CHEST: No chest wall deformity. LUNGS: Equal air entry with bilateral scattered rhonchi, crackles in the posterior bases. Diminished. CVS: S1 and S2 normal with no audible murmur, irregular rhythm. ABDOMEN: No hepatosplenomegaly, normal bowel sounds, no guarding or rigidity. SPINE: No scoliosis or deformity SKIN: No rashes CENTRAL NERVOUS SYSTEM: No focal deficits, tone is normal in all 4 extremities. EXTREMITIES: There is no peripheral edema. No clubbing, no cyanosis. Peripheral pulses are intact. - Labs CBC & Chem 7: 05/31/23 06:34 05/31/23 06:34 Labs: Abnormal Lab Results - Last 24 Hours (Table) 05/30/23 05/30/23 05/30/23 Range/Units 11:35 16:46 21:09 RBC (4.30-5.90) m/uL Hgb (13.0-17.5) gm/dL Hct (39.0-53.0) % MCV (80.0-100.0) fL MCH (25.0-35.0) pg Neutrophils # (1.3-7.7) k/uL Lymphocytes # (1.0-4.8) k/uL APTT (22.0-30.0) sec BUN (9-20) mg/dL Creatinine (0.66-1.25) mg/dL Glucose (74-99) mg/dL POC Glucose (mg/dL) 159 H 162 H 176 H (70-110) mg/dL 05/31/23 05/31/23 05/31/23 Range/Units 06:34 06:34 06:34 RBC 3.58 L (4.30-5.90) m/uL Hgb 8.6 L (13.0-17.5) gm/dL Hct 27.4 L (39.0-53.0) % MCV 76.5 L (80.0-100.0) fL MCH 23.9 L (25.0-35.0) pg Neutrophils # 8.9 H (1.3-7.7) k/uL Lymphocytes # 0.6 L (1.0-4.8) k/uL APTT 92.6 H (22.0-30.0) sec BUN 77 H (9-20) mg/dL Creatinine 5.14 H (0.66-1.25) mg/dL Glucose 101 H (74-99) mg/dL POC Glucose (mg/dL) (70-110) mg/dL Assessment and Plan Assessment: Shortness of breath possibly related to an acute exacerbation of chronic obstructive pulmonary disease. Chest x-ray shows no acute pulmonary process. The patient is also quite anxious and hypertensive. VQ scan revealed low probability for pulmonary embolism. CT scan of the chest without contrast revealed minimal airspace opacity of the lung bases, trace bilateral pleural effusions, scattered new pulmonary nodules from -2023 correlate for infectious/inflammatory process. Atrial fibrillation with a rapid ventricular response Acute hypoxemic respiratory failure secondary to fluid volume overload, congestive heart failure Acute kidney injury, presenting creatinine greater than 6.0 secondary to obstructive uropathy and increased amounts of ibuprofen, worsening again and currently 5.14 Received first treatment for bladder cancer on 05/23/2023. Recent CT scan reveals findings of progression of disease with left lateral bladder wall eccentric thickening with partial obstruction of the left ureteral ureter and mild left hydronephrosis. Hydronephrosis is mildly progressed since January 2023. New segment 3 liver lesion concerning metastatic disease. Right lower lobe and increasing size of left lower lobe pulmonary nodules. Increase size of ret roperitoneal lymph node at the level of the left kidney and left pelvic sidewall nodes. 4 mm sclerotic focus of the right inferior pubic ramus possible CS metastatic disease Former heavy smoker quit in January 2023 Former heavy drinker quit in January 2023 Anxiety Hypertension Plan: The patient was seen and evaluated Chest x-ray, labs and medications reviewed Continue bronchodilators, prednisone Currently on a Cardizem drip Currently on a heparin drip Titrate down the FiO2 as tolerated Nephrology and urology following May require nephrostomy tube placement We will continue to follow I have personally seen and examined the patient, performed the documentation and the assessment and plan as written. Number of minutes spent on the visit: 10.
[2023-05-31 11:44] LABS: Glucose,Whole Blood 131 mg/dL (70-110)
[2023-05-31 13:16] VITALS: BMI 20.7
--- NOTE | 2023-05-31 13:18 | P.PN ---
Subjective Patient is seen for follow-up for acute kidney injury. Renal function had been improving however serum creatinine has been increasing again and is up to 5.1 today. Patient has had good urine output. 24-hour urine output at 1550 mL Patient remains on Cardizem drip for A-fib with RVR. No documented hypotension noted. discussed with urology regarding nephrostomy tube placement. Transfer process will be initiated. Objective - Vital Signs Vital signs: Vital Signs Temp 97.9 F 05/31/23 08:00 Pulse 98 05/31/23 12:00 Resp 23 05/31/23 12:00 BP 114/83 05/31/23 12:00 Pulse Ox 94 L 05/31/23 12:00 FiO2 92 05/31/23 10:50 Intake & Output 05/30/23 05/31/23 05/31/23 18:59 06:59 18:59 Intake Total 901.640 350.000 458.936 Output Total 450 1100 100 Balance 451.640 -750.000 358.936 Weight 71.2 kg 71.2 kg Intake: IV 200 0 100 0.9 100 0 0 Sodium Ferric Gluconat- 100 100 Sucrose 125 mg In Sodium Chloride 0.9% 100 ml @ 100 mls/hr IVPB DAILY [facility] Rx#:[id number] Intake, IV Titration 351.640 350.000 118.936 Amount Diltiazem 125 mg In 115.250 100.000 45 Sodium Chloride 0.9% 100 ml @ 10 MG/HR 10 mls/hr IV .[id number] [facility] Rx#: [id number] Heparin Sod,Pork in 0.45% 236.39 250 73.936 NaCl 25,000 unit In 0.45 % NaCl 1 250ml.bag @ 12 UNITS/KG/HR 7.675 mls/hr IV .Q24H [facility] Rx#: [id number] Oral 350 240 Output: Urine 450 1100 100 Other: Voiding Method External Catheter External Catheter External Catheter # Voids 1 3 # Bowel Movements 1 - Exam Patient is awake, comfortable, no acute distress Examination of the heart S1 and S2 Examination of the lungs bilateral breath sounds are heard, decreased breath sounds at the bases. Abdomen is soft nontender Examination lower extremities shows no evidence of edema [employer] exam grossly intact - Labs CBC & Chem 7: 05/31/23 06:34 05/31/23 06:34 Labs: Abnormal Lab Results - Last 24 Hours (Table) 05/30/23 05/30/23 05/31/23 Range/Units 16:46 21:09 06:34 RBC 3.58 L (4.30-5.90) m/uL Hgb 8.6 L (13.0-17.5) gm/dL Hct 27.4 L (39.0-53.0) % MCV 76.5 L (80.0-100.0) fL MCH 23.9 L (25.0-35.0) pg Neutrophils # 8.9 H (1.3-7.7) k/uL Lymphocytes # 0.6 L (1.0-4.8) k/uL APTT (22.0-30.0) sec BUN (9-20) mg/dL Creatinine (0.66-1.25) mg/dL Glucose (74-99) mg/dL POC Glucose (mg/dL) 162 H 176 H (70-110) mg/dL 05/31/23 05/31/23 05/31/23 Range/Units 06:34 06:34 11:43 RBC (4.30-5.90) m/uL Hgb (13.0-17.5) gm/dL Hct (39.0-53.0) % MCV (80.0-100.0) fL MCH (25.0-35.0) pg Neutrophils # (1.3-7.7) k/uL Lymphocytes # (1.0-4.8) k/uL APTT 92.6 H (22.0-30.0) sec BUN 77 H (9-20) mg/dL Creatinine 5.14 H (0.66-1.25) mg/dL Glucose 101 H (74-99) mg/dL POC Glucose (mg/dL) 131 H (70-110) mg/dL Assessment and Plan Assessment: 1. Non-oliguric ARNALDO, likely ATN from chronic NSAID use and obstructive uropathy. Baseline creatinine 0.9, presented 6.8, improved to 1.7 then started to increase again to 5.1 today. Status post IV fluids. C.urrently being diuresed Renal ultrasound shows moderate left hydronephrosis. discussed with urology and transfer process will be initiated nephrostomy tube placement. 2. Bladder Cancer currently undergoing chemotherapy. 3. Metabolic Acidosis 4. COPD Exacerbation-Pulmonology following. V/Q low probability for PE 5. Hyperkalemia due to a GI and obstructive uropathy. Improved 6. A. fib with RVR 7. Volume overload Plan: agree with plans for transfer to another facility for nephrostomy tube placement Continue off of IV fluids Maintain scheduled dose of IV Lasix Repeat labs in a.m. Continue to avoid nephrotoxic agents.
--- NOTE | 2023-05-31 14:15 | P.PN ---
Subjective Progress Note Date: 05/30/23 63-year-old male patient with a history of bladder mass and left hydronephrosis. He had undergone a TURP and attempted left-sided stent insertion by urology on February 06, 2023. CAT scan of the chest abdomen pelvis from April 2023 revealed findings of progression of disease with left lateral bladder wall eccentric thickening with partial obstruction of left ureter and mild left hydronephrosis. New segment 3 liver lesion concerning metastatic disease. Right lower lobe and increasing size of the left lower lobe pulmonary nodules. Increased retroperitoneal lymph node at the level of the left kidney and left pelvis at sidewall nodes. Indeterminate right inferior pubic ramus 4 mm sclerotic focus. Follow-up imaging for osseous metastatic disease. He had undergone his first treatment for the bladder cancer on May 23, 2023. Yesterday he was seen by Dr. Hankins who referred him here for CAT scan to rule out pulmonary embolism due to his complaints of shortness of breath. Ever, he w as find to have significant elevation in his creatinine at 6.82. He did undergo ventilation/perfusion study instead revealed low evidence for pulmonary embolism. He is currently on a heparin drip. X-ray revealed no acute cardiopulmonary process. Evidence of COPD. White count 9.0. Hemoglobin 9.7. Platelets 263. Sodium 136. Potassium 5.4. Bicarb 14. BUN 49. Creatinine 6.3. Glucose 202. Urinalysis with large blood, greater than 182 RBCs. Viral screen negative. The patient was a heavy smoker and drinker for over 40 years however quit smoking and drinking in January 2023. He is seen today in consultation on the regular medical floor. He is currently resting in bed. Awake and alert in no acute distress. He is quite anxious and nervous. He is somewhat of a poor historian. He states he had been taking a lot of ibuprofen due to the pain in his bladder area and down his left leg. 05/28. Patient seen and examined. Blood work done this morning showed WBC 22.3, hemoglobin 9.7, platelet count 318, sodium 142, potassium 4.7, BUN 48, creatinine 3.02. [facility] with [facility] overnight, currently on amiodarone and heparin. Renal function is improving. Bicarb drip has been discontinued. Patient is on prednisone 30 mg daily. 05/29/2023 Patient is currently in the MICU. Patient was transferred to MICU due to hypoxia and shortness of breath. Denied any complaints of chest pain. Shortness of breath did improve. Was given a dose of IV Lasix. Chest x-ray showed borderline cardiomegaly and COPD with interval worsening interstitial and patchy opacities. Suspected CHF. Patient is being continued on Cardizem drip and amiodarone drip. Cardiology and nephrology is on board. Laboratory data showed WBC 14.2 hemoglobin 9.3 and platelets 214 05/30/2023 Patient is in the MICU. Currently lying in the bed. Awake alert and oriented x 3. Requiring BiPAP with 60% FiO2. Patient is on Cardizem drip and is on heparin drip. Remains in atrial fibrillation with heart rate around 111. Patient is also on prednisone 30 mg daily. Chest x-ray showed borderline cardiomegaly and COPD and worsening interstitial patchy opacities. Patient was given a dose of IV Lasix today. Nephrology is on board.WBC 11.0 hemoglobin 9.1 and platelets 159 Sodium 137 potassium 4.5 chloride 101 BUN 46 and creatinine 2.97 bicarb 30. Calcium 8.3. REVIEW OF SYSTEMS: CONSTITUTIONAL: No fever, no malaise,. CARDIOVASCULAR: No chest pain, no palpitations, no syncope. PULMONARY: No shortness of breath, no cough, GASTROINTESTINAL: No diarrhea, no nausea, no vomiting, no abdominal pain. NEUROLOGICAL: No headaches, no weakness, PHYSICAL EXAMINATION: GENERAL: The patient is alert and oriented x3, not in any acute distress. Well developed, well nourished. HEENT: Pupils are round and equally reacting to light. EOMI. No scleral icterus. No conjunctival pallor. Normocephalic, atraumatic. No pharyngeal erythema. No thyromegaly. CARDIOVASCULAR: S1 and S2 present. No murmurs, rubs, or gallops. Irregular in rhythm and rate PULMONARY: Chest is clear to auscultation, no wheezing or crackles. ABDOMEN: Soft, nontender, nondistended, normoactive bowel sounds. No palpable organomegaly. MUSCULOSKELETAL: No joint swelling or deformity. EXTREMITIES: No cyanosis, clubbing, or pedal edema. NEUROLOGICAL: Gross neurological examination did not reveal any focal deficits. SKIN: No rashes. Assessment and plan Acute exacerbation COPD. VQ scan low probability for PE. Acute hypoxemic respiratory failure secondary acute CHF EF not known and COPD. Dyspnea A-fib RVR. On heparin drip currently Acute nonoliguric renal injury; creatinine at 6.3 upon admission. Due to obstructive uropathy and possible ATN from chronic NSAID use. Improving. Moderate left hydronephrosis Microcytic iron deficiency anemia Uncontrolled hypertension History of bladder CA Anxiety tobacco addiction Monitor vital signs monitor CBC Monitor CMP Continue breathing treatments Continue prednisone Continue pharmacy to dose heparin Continue amiodarone and Lopressor ultrasound showed evidence of obstructive uropathy/hydronephrosis, patient was seen by nephrology and he was also seen by urology. Both are addressing his renal issues, and whether the patient may need nephrostomy tubes or not this is to be decided upon by urology. According to nephrology the patient does not need immediate hemodialysis, as the patient is making urine, and he does not have significant uremia symptoms to start hemodialysis. Renal function is improving. Pulmonology following Nephrology following Cardiology is on board. Labs and medication were reviewed. Resume home medication. Monitor labs and vitals. DVT and GI prophylaxis. Dictation was produced using [employer] dictation software. please excuse any grammatical, word or spelling errors. Objective - Vital Signs Vital signs: Vital Signs Temp 98.7 F 05/30/23 04:00 Pulse 98 05/30/23 19:00 Resp 22 05/30/23 19:00 BP 115/91 05/30/23 19:00 Pulse Ox 90 L 05/30/23 19:00 FiO2 90 05/30/23 12:06 Intake & Output 05/30/23 05/30/23 05/31/23 06:59 18:59 06:59 Intake Total 273.167 901.640 0 Output Total 735 450 Balance -461.833 451.640 0 Weight 70.4 kg Intake: IV 200 200 0 0.9 200 100 0 Sodium Ferric Gluconat- 100 Sucrose 125 mg In Sodium Chloride 0.9% 100 ml @ 100 mls/hr IVPB DAILY [facility] Rx#:[id number] Intake, IV Titration 73.167 351.640 Amount Diltiazem 125 mg In 73.167 115.250 Sodium Chloride 0.9% 100 ml @ 10 MG/HR 10 mls/hr IV .[id number] [facility] Rx#: [id number] Heparin Sod,Pork in 0.45% 236.39 NaCl 25,000 unit In 0.45 % NaCl 1 250ml.bag @ 12 UNITS/KG/HR 7.675 mls/hr IV .Q24H [facility] Rx#: [id number] Oral 350 Output: Urine 735 450 Other: Voiding Method External Catheter External Catheter # Voids 1 # Bowel Movements 0 1 - Labs CBC & Chem 7: 05/31/23 06:34 05/31/23 06:34 Labs: Abnormal Lab Results - Last 24 Hours (Table) 05/29/23 05/29/23 05/30/23 Range/Units 09:35 20:01 03:28 WBC (3.8-10.6) k/uL RBC (4.30-5.90) m/uL Hgb (13.0-17.5) gm/dL Hct (39.0-53.0) % MCV (80.0-100.0) fL MCH (25.0-35.0) pg Neutrophils # (1.3-7.7) k/uL Lymphocytes # (1.0-4.8) k/uL APTT 55.4 H (22.0-30.0) sec BUN (9-20) mg/dL Creatinine (0.66-1.25) mg/dL Glucose (74-99) mg/dL POC Glucose (mg/dL) 138 H (70-110) mg/dL Calcium (8.4-10.2) mg/dL % Saturation 5.96 L (15.00-50.00) 05/30/23 05/30/23 05/30/23 Range/Units 03:28 03:28 06:22 WBC 11.0 H (3.8-10.6) k/uL RBC 3.78 L (4.30-5.90) m/uL Hgb 9.1 L (13.0-17.5) gm/dL Hct 28.7 L (39.0-53.0) % MCV 76.0 L (80.0-100.0) fL MCH 24.1 L (25.0-35.0) pg Neutrophils # 10.2 H (1.3-7.7) k/uL Lymphocytes # 0.4 L (1.0-4.8) k/uL APTT (22.0-30.0) sec BUN 46 H (9-20) mg/dL Creatinine 2.97 H (0.66-1.25) mg/dL Glucose 112 H (74-99) mg/dL POC Glucose (mg/dL) 111 H (70-110) mg/dL Calcium 8.3 L (8.4-10.2) mg/dL % Saturation (15.00-50.00) 05/30/23 05/30/23 Range/Units 11:35 16:46 WBC (3.8-10.6) k/uL RBC (4.30-5.90) m/uL Hgb (13.0-17.5) gm/dL Hct (39.0-53.0) % MCV (80.0-100.0) fL MCH (25.0-35.0) pg Neutrophils # (1.3-7.7) k/uL Lymphocytes # (1.0-4.8) k/uL APTT (22.0-30.0) sec BUN (9-20) mg/dL Creatinine (0.66-1.25) mg/dL Glucose (74-99) mg/dL POC Glucose (mg/dL) 159 H 162 H (70-110) mg/dL Calcium (8.4-10.2) mg/dL % Saturation (15.00-50.00)
--- NOTE | 2023-05-31 14:19 | P.PN ---
Subjective Progress Note Date: 05/31/23 63-year-old male patient with a history of bladder mass and left hydronephrosis. He had undergone a TURP and attempted left-sided stent insertion by urology on February 06, 2023. CAT scan of the chest abdomen pelvis from April 2023 revealed findings of progression of disease with left lateral bladder wall eccentric thickening with partial obstruction of left ureter and mild left hydronephrosis. New segment 3 liver lesion concerning metastatic disease. Right lower lobe and increasing size of the left lower lobe pulmonary nodules. Increased retroperitoneal lymph node at the level of the left kidney and left pelvis at sidewall nodes. Indeterminate right inferior pubic ramus 4 mm sclerotic focus. Follow-up imaging for osseous metastatic disease. He had undergone his first treatment for the bladder cancer on May 23, 2023. Yesterday he was seen by Dr. Hankins who referred him here for CAT scan to rule out pulmonary embolism due to his complaints of shortness of breath. Ever, he w as find to have significant elevation in his creatinine at 6.82. He did undergo ventilation/perfusion study instead revealed low evidence for pulmonary embolism. He is currently on a heparin drip. X-ray revealed no acute cardiopulmonary process. Evidence of COPD. White count 9.0. Hemoglobin 9.7. Platelets 263. Sodium 136. Potassium 5.4. Bicarb 14. BUN 49. Creatinine 6.3. Glucose 202. Urinalysis with large blood, greater than 182 RBCs. Viral screen negative. The patient was a heavy smoker and drinker for over 40 years however quit smoking and drinking in January 2023. He is seen today in consultation on the regular medical floor. He is currently resting in bed. Awake and alert in no acute distress. He is quite anxious and nervous. He is somewhat of a poor historian. He states he had been taking a lot of ibuprofen due to the pain in his bladder area and down his left leg. 05/28. Patient seen and examined. Blood work done this morning showed WBC 22.3, hemoglobin 9.7, platelet count 318, sodium 142, potassium 4.7, BUN 48, creatinine 3.02. Patient went to [facility] with RVR overnight, currently on amiodarone and heparin. Renal function is improving. Bicarb drip has been discontinued. Patient is on prednisone 30 mg daily. 05/29/2023 Patient is currently in the MICU. Patient was transferred to MICU due to hypoxia and shortness of breath. Denied any complaints of chest pain. Shortness of breath did improve. Was given a dose of IV Lasix. Chest x-ray showed borderline cardiomegaly and COPD with interval worsening interstitial and patchy opacities. Suspected CHF. Patient is being continued on Cardizem drip and amiodarone drip. Cardiology and nephrology is on board. Laboratory data showed WBC 14.2 hemoglobin 9.3 and platelets 214 05/30/2023 Patient is in the MICU. Currently lying in the bed. Awake alert and oriented x 3. Requiring BiPAP with 60% FiO2. Patient is on Cardizem drip and is on heparin drip. Remains in atrial fibrillation with heart rate around 111. Patient is also on prednisone 30 mg daily. Chest x-ray showed borderline cardiomegaly and COPD and worsening interstitial patchy opacities. Patient was given a dose of IV Lasix today. Nephrology is on board.WBC 11.0 hemoglobin 9.1 and platelets 159 Sodium 137 potassium 4.5 chloride 101 BUN 46 and creatinine 2.97 bicarb 30. Calcium 8.3. 05/31/2023 Patient is Sitting in the chair. Awake alert and oriented x 3. Currently on BiPAP with FiO2 94%. Repeat chest x-ray this morning showed Borderline cardiomegaly and COPD with worsening interstitial opacities suspect CHF with developing interstitial pulmonary edema. Trace left effusion. Patient was given a dose of IV Lasix. Heart rate is better controlled in 80s. No complaints of chest pain. No leg swelling. No nausea vomiting or diarrhea. Laboratory data showed WBC 9.9 hemoglobin 8.6 and platelets 172, sodium 138 pota ssium 4.2 chloride 100 bicarb 24 BUN 77 creatinine 5.14 and blood sugar is 101. Calcium 8.4. Urology recommends nephrostomy placement due to obstructive uropathy and left moderate hydronephrosis. Will initiate transfer to [facility] for further evaluation and possible nephrostomy tube placement. REVIEW OF SYSTEMS: CONSTITUTIONAL: No fever, no malaise,. CARDIOVASCULAR: No chest pain, no palpitations, no syncope. PULMONARY: No shortness of breath, no cough, GASTROINTESTINAL: No diarrhea, no nausea, no vomiting, no abdominal pain. NEUROLOGICAL: No headaches, no weakness, PHYSICAL EXAMINATION: GENERAL: The patient is alert and oriented x3, not in any acute distress. Well developed, well nourished. HEENT: Pupils are round and equally reacting to light. EOMI. No scleral icterus. No conjunctival pallor. Normocephalic, atraumatic. No pharyngeal erythema. No thyromegaly. CARDIOVASCULAR: S1 and S2 present. No murmurs, rubs, or gallops. Irregular in rhythm and rate PULMONARY: Chest is clear to auscultation, no wheezing or crackles. ABDOMEN: Soft, nontender, nondistended, normoactive bowel sounds. No palpable organomegaly. MUSCULOSKELETAL: No joint swelling or deformity. EXTREMITIES: No cyanosis, clubbing, or pedal edema. NEUROLOGICAL: Gross neurological examination did not reveal any focal deficits. SKIN: No rashes. Assessment and plan Acute exacerbation COPD. VQ scan low probability for PE. Acute hypoxemic respiratory failure secondary acute CHF EF not known and COPD. Dyspnea A-fib RVR. On heparin drip currently Acute nonoliguric renal injury; creatinine at 6.3 upon admission. Due to obstructive uropathy and possible ATN from chronic NSAID use. Improving. Moderate left hydronephrosis, mild right metastatic muscle invasive bladder cancer. Microcytic iron deficiency anemia Uncontrolled hypertension Anxiety tobacco addiction Monitor vital signs monitor CBC Monitor CMP Continue breathing treatments Continue prednisone Continue pharmacy to dose heparin Continue amiodarone and Lopressor ultrasound showed evidence of obstructive uropathy/hydronephrosis, patient was seen by nephrology and he was also seen by urology. Urology recommends nephrostomy tubes placement. Patient will need to be transferred to different facility to get the procedure done. Will initiate transfer to [facility] for further management. According to nephrology the patient does not need immediate hemodialysis, as the patient is making urine, and he does not have significant uremia symptoms to start hemodialysis. Renal function is improving. Pulmonology following Nephrology following Cardiology is on board. Labs and medication were reviewed. Resume home medication. Monitor labs and vitals. DVT and GI prophylaxis. Dictation was produced using [employer] dictation software. please excuse any grammatical, word or spelling errors. Objective - Vital Signs Vital signs: Vital Signs Temp 97.9 F 05/31/23 08:00 Pulse 98 05/31/23 13:00 Resp 22 05/31/23 13:00 BP 114/83 05/31/23 13:00 Pulse Ox 88 L 05/31/23 13:00 FiO2 90 05/31/23 13:47 Intake & Output 05/30/23 05/31/23 05/31/23 18:59 06:59 18:59 Intake Total 901.640 350.000 458.936 Output Total 450 1100 100 Balance 451.640 -750.000 358.936 Weight 71.2 kg 71.2 kg Intake: IV 200 0 100 0.9 100 0 0 Sodium Ferric Gluconat- 100 100 Sucrose 125 mg In Sodium Chloride 0.9% 100 ml @ 100 mls/hr IVPB DAILY [facility] Rx#:[id number] Intake, IV Titration 351.640 350.000 118.936 Amount Diltiazem 125 mg In 115.250 100.000 45 Sodium Chloride 0.9% 100 ml @ 10 MG/HR 10 mls/hr IV .[id number] [facility] Rx#: [id number] Heparin Sod,Pork in 0.45% 236.39 250 73.936 NaCl 25,000 unit In 0.45 % NaCl 1 250ml.bag @ 12 UNITS/KG/HR 7.675 mls/hr IV .Q24H [facility] Rx#: [id number] Oral 350 240 Output: Urine 450 1100 100 Other: Voiding Method External Catheter External Catheter External Catheter # Voids 1 3 # Bowel Movements 1 - Labs CBC & Chem 7: 05/31/23 06:34 05/31/23 06:34 Labs: Abnormal Lab Results - Last 24 Hours (Table) 05/30/23 05/30/23 05/31/23 Range/Units 16:46 21:09 06:34 RBC 3.58 L (4.30-5.90) m/uL Hgb 8.6 L (13.0-17.5) gm/dL Hct 27.4 L (39.0-53.0) % MCV 76.5 L (80.0-100.0) fL MCH 23.9 L (25.0-35.0) pg Neutrophils # 8.9 H (1.3-7.7) k/uL Lymphocytes # 0.6 L (1.0-4.8) k/uL APTT (22.0-30.0) sec BUN (9-20) mg/dL Creatinine (0.66-1.25) mg/dL Glucose (74-99) mg/dL POC Glucose (mg/dL) 162 H 176 H (70-110) mg/dL 05/31/23 05/31/23 05/31/23 Range/Units 06:34 06:34 11:43 RBC (4.30-5.90) m/uL Hgb (13.0-17.5) gm/dL Hct (39.0-53.0) % MCV (80.0-100.0) fL MCH (25.0-35.0) pg Neutrophils # (1.3-7.7) k/uL Lymphocytes # (1.0-4.8) k/uL APTT 92.6 H (22.0-30.0) sec BUN 77 H (9-20) mg/dL Creatinine 5.14 H (0.66-1.25) mg/dL Glucose 101 H (74-99) mg/dL POC Glucose (mg/dL) 131 H (70-110) mg/dL Assessment and Plan Time with Patient: Greater than 30
--- NOTE | 2023-05-31 14:25 | P.PN ---
Subjective Progress Note Date: 05/31/23 Principal diagnosis: Acute renal failure. Urothelial carcinoma on immunotherapy. In follow-up patient is sitting in the chair, he is able to position himself and move about a little bit, nursing reports he got to the chair by himself, his breathing is still labored he is on the Airvo, O2 sat in the mid to high 80s, sometimes at rest he can get into the low 90s, patient is trying to cough and expectorate what he can. No documented fevers. Objective - Vital Signs Vital signs: Vital Signs Temp 97.9 F 05/31/23 08:00 Pulse 85 05/31/23 11:00 Resp 32 H 05/31/23 11:00 BP 120/98 05/31/23 11:00 Pulse Ox 88 L 05/31/23 11:00 FiO2 92 05/31/23 10:50 Intake & Output 05/30/23 05/31/23 05/31/23 18:59 06:59 18:59 Intake Total 901.640 350.000 458.936 Output Total 450 1100 0 Balance 451.640 -750.000 458.936 Weight 71.2 kg Intake: IV 200 0 100 0.9 100 0 0 Sodium Ferric Gluconat- 100 100 Sucrose 125 mg In Sodium Chloride 0.9% 100 ml @ 100 mls/hr IVPB DAILY [facility] Rx#:[id number] Intake, IV Titration 351.640 350.000 118.936 Amount Diltiazem 125 mg In 115.250 100.000 45 Sodium Chloride 0.9% 100 ml @ 10 MG/HR 10 mls/hr IV .[id number] [facility] Rx#: [id number] Heparin Sod,Pork in 0.45% 236.39 250 73.936 NaCl 25,000 unit In 0.45 % NaCl 1 250ml.bag @ 12 UNITS/KG/HR 7.675 mls/hr IV .Q24H [facility] Rx#: [id number] Oral 350 240 Output: Urine 450 1100 0 Other: Voiding Method External Catheter External Catheter External Catheter # Voids 1 3 # Bowel Movements 1 - Constitutional General appearance: Present: cooperative, mild distress, thin - EENT Eyes: Present: anicteric sclerae, EOMI ENT: Present: hearing grossly normal - Respiratory Details: barrel chest Respiratory: bilateral: rhonchi - Cardiovascular Details: mild tachy - Neurologic Neurologic: Present: CNII-XII intact - Musculoskeletal Musculoskeletal: Present: generalized weakness, strength equal bilaterally - Psychiatric Psychiatric: Present: A&O x's 3, appropriate affect, intact judgment & insight - Labs CBC & Chem 7: 05/31/23 06:34 05/31/23 06:34 Labs: Abnormal Lab Results - Last 24 Hours (Table) 05/30/23 05/30/23 05/31/23 Range/Units 16:46 21:09 06:34 RBC 3.58 L (4.30-5.90) m/uL Hgb 8.6 L (13.0-17.5) gm/dL Hct 27.4 L (39.0-53.0) % MCV 76.5 L (80.0-100.0) fL MCH 23.9 L (25.0-35.0) pg Neutrophils # 8.9 H (1.3-7.7) k/uL Lymphocytes # 0.6 L (1.0-4.8) k/uL APTT (22.0-30.0) sec BUN (9-20) mg/dL Creatinine (0.66-1.25) mg/dL Glucose (74-99) mg/dL POC Glucose (mg/dL) 162 H 176 H (70-110) mg/dL 05/31/23 05/31/23 05/31/23 Range/Units 06:34 06:34 11:43 RBC (4.30-5.90) m/uL Hgb (13.0-17.5) gm/dL Hct (39.0-53.0) % MCV (80.0-100.0) fL MCH (25.0-35.0) pg Neutrophils # (1.3-7.7) k/uL Lymphocytes # (1.0-4.8) k/uL APTT 92.6 H (22.0-30.0) sec BUN 77 H (9-20) mg/dL Creatinine 5.14 H (0.66-1.25) mg/dL Glucose 101 H (74-99) mg/dL POC Glucose (mg/dL) 131 H (70-110) mg/dL - Imaging and Cardiology Chest x-ray: report reviewed Assessment and Plan (1) Acute exacerbation of chronic obstructive pulmonary disease Current Visit: Yes Status: Acute Priority: High Code(s): J44.1 - CHRONIC OBSTRUCTIVE PULMONARY DISEASE W (ACUTE) EXACERBATION SNOMED Code(s): 538119284 (2) Acute renal failure Current Visit: Yes Status: Acute Priority: High Code(s): N17.9 - ACUTE KIDNEY FAILURE, UNSPECIFIED SNOMED Code(s): 61535026 (3) Bladder cancer Current Visit: Yes Status: Acute Priority: High Code(s): C67.9 - MALIGNANT NEOPLASM OF BLADDER, UNSPECIFIED SNOMED Code(s): 817909661 Plan: Acute hypoxic resp failure -Pt seen in ICU, high flow nasal cannula today. Patient looks slightly better than yesterday. -Pulm/Critical Care mgmt of pt A-fib with RVR, elevated BNP -Cardiology following, medically managing -Patient is currently on a heparin drip. -Would like ECHO to be performed. Assess for possible myocarditis from IO, extremely rare side effect but, reasonable to assess for the same. COPD exacerbation -Pulmonary is following. -Pt on treatment for the same Acute renal failure -There was discussion about possible nephrostomy tubes, felt possible ureteral obstruction from disease. Creatinine cont to worsen -Nephrology following. Reviewed notes today. Plans for transfer for nephrostomy tube placement. -Urothelial carcinoma -High-resolution CT results reviewed with the patient, no evidence of pneumonitis. -Treatment for malignancy is on hold at this time. There is discussion about pt changing code status, which is reasonable. This will be reported to be documented once paperwork is in place-there are some [facility] POA documents that need to be taken care of per family. Anemia -Microcytic, hypochromic -IV iron ordered
[2023-05-31 16:07] LABS: Glucose,Whole Blood 165 mg/dL (70-110)
--- NOTE | 2023-05-31 16:20 | P.PN ---
Subjective Progress Note Date: 05/31/23 Principal diagnosis: Renal failure secondary to bilateral hydronephrosis The patient is a 63-year-old white male with metastatic muscle invasive bladder cancer. This has caused bilateral hydronephrosis with resulting renal failure. He was transferred to the ICU with respiratory distress. His renal function had started to improve but it has deteriorated the last 2 days. Objective - Vital Signs Vital signs: Vital Signs Temp 97.8 F 05/31/23 16:00 Pulse 80 05/31/23 16:00 Resp 24 05/31/23 16:00 BP 106/72 05/31/23 16:00 Pulse Ox 92 L 05/31/23 16:00 FiO2 90 05/31/23 16:10 Intake & Output 05/30/23 05/31/23 05/31/23 18:59 06:59 18:59 Intake Total 901.640 350.000 801.185 Output Total 450 1100 225 Balance 451.640 -750.000 576.185 Weight 71.2 kg 71.2 kg Intake: IV 200 0 100 0.9 100 0 0 Sodium Ferric Gluconat- 100 100 Sucrose 125 mg In Sodium Chloride 0.9% 100 ml @ 100 mls/hr IVPB DAILY [facility] Rx#:[id number] Intake, IV Titration 351.640 350.000 221.185 Amount Diltiazem 125 mg In 115.250 100.000 45 Sodium Chloride 0.9% 100 ml @ 10 MG/HR 10 mls/hr IV .[id number] [facility] Rx#: [id number] Heparin Sod,Pork in 0.45% 236.39 250 176.185 NaCl 25,000 unit In 0.45 % NaCl 1 250ml.bag @ 12 UNITS/KG/HR 7.675 mls/hr IV .Q24H [facility] Rx#: [id number] Oral 350 480 Output: Urine 450 1100 225 Other: Voiding Method External Catheter External Catheter External Catheter # Voids 1 1 # Bowel Movements 1 - Constitutional Constitutional Comment(s): Patient is awake and alert. Mild respiratory distress is noted. - Gastrointestinal Gastrointestinal Comment(s): Soft, non-tender. - Psychiatric Psychiatric: Present: A&O x's 3 - Labs CBC & Chem 7: 05/31/23 06:34 05/31/23 06:34 Labs: Abnormal Lab Results - Last 24 Hours (Table) 05/30/23 05/30/23 05/31/23 Range/Units 16:46 21:09 06:34 RBC 3.58 L (4.30-5.90) m/uL Hgb 8.6 L (13.0-17.5) gm/dL Hct 27.4 L (39.0-53.0) % MCV 76.5 L (80.0-100.0) fL MCH 23.9 L (25.0-35.0) pg Neutrophils # 8.9 H (1.3-7.7) k/uL Lymphocytes # 0.6 L (1.0-4.8) k/uL APTT (22.0-30.0) sec BUN (9-20) mg/dL Creatinine (0.66-1.25) mg/dL Glucose (74-99) mg/dL POC Glucose (mg/dL) 162 H 176 H (70-110) mg/dL 05/31/23 05/31/23 05/31/23 Range/Units 06:34 06:34 11:43 RBC (4.30-5.90) m/uL Hgb (13.0-17.5) gm/dL Hct (39.0-53.0) % MCV (80.0-100.0) fL MCH (25.0-35.0) pg Neutrophils # (1.3-7.7) k/uL Lymphocytes # (1.0-4.8) k/uL APTT 92.6 H (22.0-30.0) sec BUN 77 H (9-20) mg/dL Creatinine 5.14 H (0.66-1.25) mg/dL Glucose 101 H (74-99) mg/dL POC Glucose (mg/dL) 131 H (70-110) mg/dL 05/31/23 05/31/23 Range/Units 14:21 16:06 RBC (4.30-5.90) m/uL Hgb (13.0-17.5) gm/dL Hct (39.0-53.0) % MCV (80.0-100.0) fL MCH (25.0-35.0) pg Neutrophils # (1.3-7.7) k/uL Lymphocytes # (1.0-4.8) k/uL APTT 97.8 H (22.0-30.0) sec BUN (9-20) mg/dL Creatinine (0.66-1.25) mg/dL Glucose (74-99) mg/dL POC Glucose (mg/dL) 165 H (70-110) mg/dL Assessment and Plan (1) Acquired hydronephrosis Current Visit: Yes Status: Acute Code(s): N13.30 - UNSPECIFIED HYDRONEPHROSIS SNOMED Code(s): 483718707 Plan: I have discussed the patient's renal function with both Dr. Lal and Dr. Ugarte, and it is my recommendation that he be transferred to [facility] where nephrostomy tubes can be placed. The transfer is being initiated. I discussed this in detail with the patient and his sister, who is at his bedside.
[2023-05-31] MEDS: ALPRAZolam 0.5 MG TAB PO PRN (18:11)
--- NOTE | 2023-05-31 18:49 | P.DS ---
Providers Date of admission: 05/25/23 20:40 Expected date of discharge: 05/31/23 Attending physician: Barbara Conde Consults: 05/25/23 20:38 Consult Physician Routine Consulting Provider: Carlos Hankins Consult Reason/Comments: known Do you want consulting provider notified?: Yes Consult Physician Routine Consulting Provider: Kevin Weinstein Consult Reason/Comments: renalFail Do you want consulting provider notified?: Yes 05/26/23 13:40 Consult Physician Routine Consulting Provider: Shayy Huang Consult Reason/Comments: COPD exac Do you want consulting provider notified?: Yes 05/27/23 08:14 Consult Physician Routine Consulting Provider: Jimmy Bernardo Consult Reason/Comments: Hydronephrosis Do you want consulting provider notified?: Yes 05/28/23 00:11 Consult Physician Routine Consulting Provider: Christ Torres Consult Reason/Comments: new onset afib rvr Do you want consulting provider notified?: Yes, Notify in am Primary care physician: Stated None Hospital Course: Discharge diagnosis Acute hypoxemic respiratory failure secondary fluid load, acute CHF EF not known, A fib and COPD. A-fib RVR. On heparin drip and cardizem drip currently Acute exacerbation COPD. VQ scan low probability for PE. Acute nonoliguric renal injury; creatinine at 6.3 upon admission. Due to obstructive uropathy and possible ATN from chronic NSAID use. Moderate left hydronephrosis, mild right metastatic muscle invasive bladder cancer. Microcytic iron deficiency anemia Uncontrolled hypertension Anxiety tobacco addiction Hospital course 63-year-old male patient with a history of bladder mass and left hydronephrosis. He had undergone a TURP and attempted left-sided stent insertion by urology on February 06, 2023. CAT scan of the chest abdomen pelvis from April 2023 revealed findings of progression of disease with left lateral bladder wall eccentric thickening with partial obstruction of left ureter and mild left hydronephrosis. New segment 3 liver lesion concerning metastatic disease. Right lower lobe and increasing size of the left lower lobe pulmonary nodules. Increased retroperitoneal lymph node at the level of the left kidney and left pelvis at sidewall nodes. Indeterminate right inferior pubic ramus 4 mm sclerotic focus. Follow-up imaging for osseous metastatic disease. He had undergone his first treatment for the bladder cancer on May 23, 2023. Yesterday he was seen by Dr. Hankins who referred him here for CAT scan to rule out pulmonary embolism due to his complaints of shortness of breath. Ever, he was find to have significant elevation in his creatinine at 6.82. He did undergo ventilation/perfusion study instead revealed low evidence for pulmonary embolism. He is currently on a heparin drip. X-ray revealed no acute cardiopulmonary process. Evidence of COPD. White count 9.0. Hemoglobin 9.7. Platelets 263. Sodium 136. Potassium 5.4. Bicarb 14. BUN 49. Creatinine 6.3. Glucose 202. Urinalysis with large blood, greater than 182 RBCs. Viral screen negative. The patient was a heavy smoker and drinker for over 40 years however quit smoking and drinking in January 2023. He is seen today in consultation on the regular medical floor. He is currently resting in bed. Awake and alert in no acute distress. He is quite anxious and nervous. He is somewhat of a poor historian. He states he had been taking a lot of ibuprofen due to the pain in his bladder area and down his left leg. 05/28. Patient seen and examined. Blood work done this morning showed WBC 22.3, hemoglobin 9.7, platelet count 318, sodium 142, potassium 4.7, BUN 48, creatinine 3.02. Patient went to [facility] with RVR overnight, currently on amiodarone and heparin. Renal function is improving. Bicarb drip has been discontinued. Patient is on prednisone 30 mg daily. 05/29/2023 Patient is currently in the MICU. Patient was transferred to MICU due to hypoxia and shortness of breath. Denied any complaints of chest pain. Shortness of breath did improve. Was given a dose of IV Lasix. Chest x-ray showed borderline cardiomegaly and COPD with interval worsening interstitial and patchy opacities. Suspected CHF. Patient is being continued on Cardizem drip and amiodarone drip. Cardiology and nephrology is on board. Laboratory data showed WBC 14.2 hemoglobin 9.3 and platelets 214 05/30/2023 Patient is in the MICU. Currently lying in the bed. Awake alert and oriented x 3. Requiring BiPAP with 60% FiO2. Patient is on Cardizem drip and is on heparin drip. Remains in atrial fibrillation with heart rate around 111. Patient is also on prednisone 30 mg daily. Chest x-ray showed borderline cardiomegaly and COPD and worsening interstitial patchy opacities. Patient was given a dose of IV Lasix today. Nephrology is on board.WBC 11.0 hemoglobin 9.1 and platelets 159 Sodium 137 potassium 4.5 chloride 101 BUN 46 and creatinine 2.97 bicarb 30. Calcium 8.3. 05/31/2023 Patient is Sitting in the chair. Awake alert and oriented x 3. Currently on BiPAP with FiO2 94%. Patient remains in atrial fibrillation. Heart rate is in 80s. Repeat chest x-ray this morning showed Borderline cardiomegaly and COPD with worsening interstitial opacities suspect CHF with developing interstitial pulmonary edema. Trace left effusion. Patient was given a dose of IV Lasix. Heart rate is better controlled in 80s. No complaints of chest pain. No leg swelling. No nausea vomiting or diarrhea. Laboratory data showed WBC 9.9 hemoglobin 8.6 and platelets 172, sodium 138 pot assium 4.2 chloride 100 bicarb 24 BUN 77 creatinine increased to 5.14 and blood sugar is 101. Calcium 8.4. Urology recommends nephrostomy placement due to obstructive uropathy and left moderate hydronephrosis. Will initiate transfer to [facility] for further evaluation and possible nephrostomy tube placement. PHYSICAL EXAMINATION: GENERAL: The patient is alert and oriented x3, not in any acute distress. Well developed, well nourished. HEENT: Pupils are round and equally reacting to light. EOMI. No scleral icterus. No conjunctival pallor. Normocephalic, atraumatic. No pharyngeal erythema. No thyromegaly. CARDIOVASCULAR: S1 and S2 present. No murmurs, rubs, or gallops. Irregular in rhythm and rate PULMONARY: Scattered rhonchi. Prolonged expiration., no wheezing or crackles. ABDOMEN: Soft, nontender, nondistended, normoactive bowel sounds. No palpable organomegaly. MUSCULOSKELETAL: No joint swelling or deformity. EXTREMITIES: No cyanosis, clubbing, or pedal edema. NEUROLOGICAL: Gross neurological examination did not reveal any focal deficits. SKIN: No rashes. Vital Signs - 8 hr 05/31/23 05/31/23 05/31/23 10:50 11:00 12:00 Temperature Pulse Rate 83 98 Pulse Rate [ 85 98 Soil Science Technical Officer ] Respiratory 32 H 25 H Rate Blood Pressure 120/98 Blood Pressure 120/98 114/83 [Right Arm Sitting] O2 Sat by Pulse 88 L 86 L Oximetry Fraction of 92 Inspired Oxygen (FIO2) 05/31/23 05/31/23 05/31/23 13:00 13:47 14:00 Temperature Pulse Rate 98 71 Pulse Rate [ Soil Science Technical Officer ] Respiratory 22 15 Rate Blood Pressure 114/83 109/77 Blood Pressure [Right Arm Sitting] O2 Sat by Pulse 88 L 92 L Oximetry Fraction of 94 90 Inspired Oxygen (FIO2) 05/31/23 05/31/23 05/31/23 15:00 16:00 16:10 Temperature 97.8 F Pulse Rate 86 80 Pulse Rate [ Soil Science Technical Officer ] Respiratory 18 24 Rate Blood Pressure 108/75 106/72 Blood Pressure [Right Arm Sitting] O2 Sat by Pulse 91 L 92 L Oximetry Fraction of 90 Inspired Oxygen (FIO2) 05/31/23 05/31/23 17:00 18:00 Temperature 97.8 F Pulse Rate 98 121 H Pulse Rate [ 112 H Soil Science Technical Officer ] Respiratory 25 H 28 H Rate Blood Pressure 120/78 114/79 Blood Pressure 130/91 [Right Arm Sitting] O2 Sat by Pulse 91 L 91 L Oximetry Fraction of Inspired Oxygen (FIO2) Patient Condition at Discharge: Serious Plan - Discharge Summary Discharge Rx Participant: Yes New Discharge Prescriptions: No Action HYDROcodone/APAP 10-325MG [[place] 10-325] 1 tab PO Q4HR PRN 3 Days #18 tab PRN Reason: Pain amLODIPine [Norvasc] 5 mg PO DAILY Ondansetron [Zofran] 4 mg PO Q4H PRN PRN Reason: Nausea Discharge Medication List HYDROcodone/APAP 10-325MG [[place] 10-325] 1 tab PO Q4HR PRN 3 Days #18 tab 05/15/23 [Rx] Ondansetron [Zofran] 4 mg PO Q4H PRN 05/25/23 [History] amLODIPine [Norvasc] 5 mg PO DAILY 05/25/23 [History] Follow up Appointment(s)/Referral(s): Breanne Lagunas, BERNIE [Nurse Practitioner] - 06/07/23 11:00 am None,Stated [Primary Care Provider] - 1-2 days
[2023-05-31 20:05] LABS: Glucose,Whole Blood 228 mg/dL (70-110)
[2023-05-31 20:11] VITALS: PULSE 112
[2023-05-31 20:39] VITALS: BP 114/87; RESP 18; TEMP 98.2
== END 2023-05-31 21:52 | disposition short-term general hospital (02) | DRG 194 ==
LOC: EC 15:59 → 5NMEDONC 20:40 → 3SCARD 05-28 00:50 → 2SICU 05-29 06:27
PROVIDERS: ADMIT Hospitalist; ATTEND Hospitalist
DX: I11.0 Hypertensive heart disease with heart failure (principal); I50.9 Heart failure, unspecified; E86.0 Dehydration; E87.20 Acidosis, unspecified; C67.9 Malignant neoplasm of bladder, unspecified; C79.51 Secondary malignant neoplasm of bone; D50.9 Iron deficiency anemia, unspecified; E87.5 Hyperkalemia; F41.9 Anxiety disorder, unspecified; G89.29 Other chronic pain; I48.91 Unspecified atrial fibrillation; J44.1 Chronic obstructive pulmonary disease with (acute) exacerbation; R59.0 Localized enlarged lymph nodes; J96.01 Acute respiratory failure with hypoxia; K56.7 Ileus, unspecified; K59.00 Constipation, unspecified; Z71.3 Dietary counseling and surveillance; R91.8 Other nonspecific abnormal finding of lung field; Z90.6 Acquired absence of other parts of urinary tract; Z11.52 Encounter for screening for COVID-19; T39.315A Adverse effect of propionic acid derivatives, initial encounter; N17.0 Acute kidney failure with tubular necrosis; N13.1 Hydronephrosis with ureteral stricture, not elsewhere classified; N40.0 Benign prostatic hyperplasia without lower urinary tract symptoms; K76.9 Liver disease, unspecified; N43.3 Hydrocele, unspecified; Z79.1 Long term (current) use of non-steroidal anti-inflammatories (NSAID); Z79.899 Other long term (current) drug therapy; Z80.1 Family history of malignant neoplasm of trachea, bronchus and lung; Z87.891 Personal history of nicotine dependence; Z91.041 Radiographic dye allergy status
CPT/HCPCS: 36415; 36600; 71045; 71046; 71250; 76770; 78582; 80048; 80053; 81001; 82525; 82533; 82550; 82607; 82728; 82747; 82805; 83540; 83550; 83605; 83735; 83880; 83921; 84100; 84132; 84145; 84439; 84443; 84481; 84484; 84550; 85025; 85027; 85610; 85730; 87636; 93005; 94640; 94660; 94664; 94760; 96361; 96365; 96366; 96375; 99285

== ENCOUNTER 2023-06-06 15:50 | Observation (INO) | payer OTHER ==
[2023-06-06] MEDS: DILTIAZEM DRIP BOLUS FROM BAG 1 MG SOLN IV ONE ×3 (16:35→19:37)
[2023-06-06] MEDS: DILTIAZEM 125 MG in SODIUM CHLORIDE 0.9% 100 ML IV SCH (16:36)
[2023-06-06] MEDS: SODIUM CHLORIDE 0.9% 500 ML 500 ML IV STA (16:36)
--- NOTE | 2023-06-06 16:39 | ED ---
SOB HPI - General Chief Complaint: Shortness of Breath Stated Complaint: AFIB Time Seen by Provider: 06/06/23 16:04 Source: patient Mode of arrival: ambulatory Limitations: no limitations - History of Present Illness Initial Comments: This patient is a 63-year-old man who arrives here from Dr. Walker's office. He had gone there to have follow-up after being in the hospital last week. Patient had noted fatigue, generalized weakness, palpitations and dyspnea. When he was seen in the office, Dr. Walker had performed an EKG and patient was in atrial fibrillation with rapid ventricular rate. He was directed here from the clinic. Patient denies having chest pain. Patient's recent history notable for admission last week (05/31). He was found to have hydronephrosis on the left side related to bladder tumor with probable spread, he was transferred to [facility] to have left nephrostomy tube placed. The patient subsequently signed out [employer] last week. The patient has received 1 round of immunotherapy for his stage IV bladder cancer, (05/23) and subsequently developed dyspnea, leading to his admission last week. During that visit he had CT angio which did not reveal pulmonary embolism. MD Complaint: shortness of breath Onset/Timin -: days(s) Severity scale (1-10): 0 Consistency: constant Improves With: rest Worsens With: exertion Context: other (Recent cancer diagnosis.) Associated Symptoms: palpitations Treatments Prior to Arrival: none - Related Data Home Oxygen Therapy: No Home Medications Medication Instructions Recorded Confirmed Ondansetron [Zofran] 4 mg PO Q4H PRN 05/25/23 06/06/23 amLODIPine [Norvasc] 5 mg PO DAILY 05/25/23 06/06/23 HYDROcodone/APAP 10-325MG [[place] 0.5 - 1 tab PO Q4HR PRN 06/06/23 06/06/23 10-325] Psyllium Husk (with Sugar) 6 gm PO DAILY PRN 06/06/23 06/06/23 [Metamucil Powder] Previous Rx's Medication Instructions Recorded Apixaban [Eliquis] 2.5 mg PO BID #60 tab 06/08/23 Metoprolol Tartrate [Lopressor] 12.5 mg PO BID #60 tab 06/08/23 Allergies Allergy/AdvReac Type Severity Reaction Status Date / Time Iodinated Contrast Media Allergy Neck Verified 06/06/23 16:52 swelling Review of Systems ROS Statement: Those systems with pertinent positive or pertinent negative responses have been documented in the HPI. ROS Other: All systems not noted in ROS Statement are negative. Constitutional: Reports: weakness. Denies: fever, chills Respiratory: Reports: dyspnea. Denies: cough, wheezes Cardiovascular: Reports: palpitations, dyspnea on exertion. Denies: chest pain, edema, syncope Gastrointestinal: Denies: abdominal pain, nausea, vomiting, diarrhea Genitourinary: Denies: dysuria, hematuria Musculoskeletal: Denies: back pain Skin: Denies: rash Neurological: Denies: headache, weakness, numbness Past Medical History Past Medical History: No Reported History, Atrial Fibrillation, COPD Additional Past Medical History / Comment(s): bladder cancer History of Any Multi-Drug Resistant Organisms: None Reported Past Surgical History: No Surgical Hx Reported Additional Past Surgical History / Comment(s): 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 Past Anesthesia/Blood Transfusion Reactions: No Reported Reaction Past Psychological History: No Psychological Hx Reported Smoking Status: Former smoker Past Alcohol Use History: Occasional Past Drug Use History: None Reported - Past Family History Father Family Medical History: Cancer Additional Family Medical History / Comment(s): lung cancer, smoker General Exam Limitations: no limitations General appearance: alert, in distress Head exam: Present: atraumatic, normocephalic Eye exam: Present: normal appearance. Absent: scleral icterus, conjunctival injection ENT exam: Present: normal oropharynx Neck exam: Present: normal inspection Respiratory exam: Present: normal lung sounds bilaterally. Absent: respiratory distress, wheezes, rales, rhonchi, stridor Cardiovascular Exam: Present: tachycardia, irregular rhythm, normal heart sounds. Absent: systolic murmur, diastolic murmur, rubs, gallop GI/Abdominal exam: Present: soft. Absent: distended, tenderness, guarding, rebound, rigid, mass Extremities exam: Present: normal inspection, normal capillary refill. Absent: pedal edema, calf tenderness Back exam: Present: normal inspection. Absent: CVA tenderness (R), CVA tenderness (L) Neurological exam: Present: alert Skin exam: Present: warm, dry, intact, normal color. Absent: rash Course Vital Signs 06/06/23 06/06/23 06/06/23 15:55 16:33 16:37 Temperature Pulse Rate 65 152 H Pulse Rate [ 151 H Director Of Claims ] Respiratory 18 18 Rate Blood Pressure 96/67 93/65 Blood Pressure [Left Arm] O2 Sat by Pulse 94 L 93 L Oximetry 06/06/23 06/06/23 06/06/23 17:35 18:02 18:30 Temperature Pulse Rate 140 H 109 H 140 H Pulse Rate [ Director Of Claims ] Respiratory 18 18 18 Rate Blood Pressure 116/72 92/74 110/87 Blood Pressure [Left Arm] O2 Sat by Pulse 95 93 L Oximetry 06/06/23 06/06/23 06/06/23 19:15 19:35 20:08 Temperature Pulse Rate 128 H 135 H 110 H Pulse Rate [ Director Of Claims ] Respiratory 26 H 24 22 Rate Blood Pressure 87/75 100/77 Blood Pressure [Left Arm] O2 Sat by Pulse 95 Oximetry 06/06/23 06/07/23 06/07/23 21:46 03:25 04:38 Temperature 98.0 F Pulse Rate 108 H 105 H 101 H Pulse Rate [ Director Of Claims ] Respiratory 18 16 18 Rate Blood Pressure 116/78 121/103 98/75 Blood Pressure [Left Arm] O2 Sat by Pulse 93 L 95 95 Oximetry 06/07/23 06/07/23 06/07/23 06:52 08:05 11:20 Temperature Pulse Rate 100 Pulse Rate [ 66 55 L Director Of Claims ] Respiratory 18 16 16 Rate Blood Pressure 108/76 Blood Pressure 114/84 114/71 [Left Arm] O2 Sat by Pulse 95 93 L 97 Oximetry Medical Decision Making - Medical Decision Making The patient had chest x-ray which I interpreted as negative for acute infiltrate, congestive heart failure, pneumothorax. There does appear to be some mild patchy haziness improved from previous Patient is a 63-year-old man with recent diagnosis of bladder cancer who was following up in clinic with the assembly line upholsterer and found to be in atrial fibrillation with rapid ventricular rate. The patient is sent here where he is started on Cardizem and has had some improvement in rate though still a bit tachycardic. The patient is admitted to have monitoring, serial enzymes, telemetry consultation Was pt. sent in by a medical professional or institution (, PA, SPECIAL SHOPPER, urgent care, hospital, or penitentiary...) When possible be specific @ -Yes he is sent here from his assembly line upholsterer office Did you speak to anyone other than the patient for history (EMS, parent, family, police, friend...)? What history was obtained from this source @ -[No] Did you review nursing and triage notes (agree or disagree)? Why? @ -[I reviewed and agree with nursing and triage notes] Were old charts reviewed (outside hosp., previous admission, EMS record, old EKG, old radiological studies, urgent care reports/EKG's, penitentiary records)? Report findings @ -Yes old charts were reviewed] Differential Diagnosis (chest pain, altered mental status, abdominal pain women, abdominal pain men, vaginal bleeding, weakness, fever, dyspnea, syncope, headache, dizziness, GI bleed, back pain, seizure, CVA, palpatations, mental health, musculoskeletal)? @ -[Differential Palpitations Ventricular arrhythmias, atrial arrhythmias, myocardial infarction, anemia, thyrotoxicosis, electrolyte imbalance, hypokalemia, pulmonary embolism, pulmonary disease, drugs, alcohol, anxiety, stress.... This is not meant to be an all-inclusive list. EKG interpreted by me (3pts min.). @ -[I interpreted as above X-rays interpreted by me (1pt min.). @ -[I interpreted as above CT interpreted by me (1pt min.). @ -[None done] U/S interpreted by me (1pt. min.). @ -[None done] What testing was considered but not performed or refused? (CT, X-rays, U/S, labs)? Why? @ -[None] What meds were considered but not given or refused? Why? @ -[None] Did you discuss the management of the patient with other professionals (professionals i.e. , PA, SPECIAL SHOPPER, lab, RT, psych nurse, foster care social worker, lime trimmer, t eacher, policy officer, bilingual case manager)? Give summary @ -[The case is discussed with the admitting physician and treatment recommendations are incorporated Was smoking cessation discussed for >3mins.? @ -[No] Was critical care preformed (if so, how long)? @ -[Yes, 35 minutes Were there social determinants of health that impacted care today? How? (Homelessness, low income, unemployed, alcoholism, drug addiction, transportation, low edu. Level, literacy, decrease access to med. care, alf, rehab)? @ -[No] Was there de-escalation of care discussed even if they declined (Discuss DNR or withdrawal of care, Hospice)? DNR status @ -[No] What co-morbidities impacted this encounter? (DM, HTN, Smoking, COPD, CAD, Cancer, CVA, ARF, Chemo, Hep., AIDS, mental health diagnosis, sleep apnea, morbid obesity)? @ -[COPD, bladder cancer Was patient admitted / discharged? Hospital course, mention meds given and route, prescriptions, significant lab abnormalities, going to OR and other pertinent info. @ -[As above Undiagnosed new problem with uncertain prognosis? @ -[No] Drug Therapy requiring intensive monitoring for toxicity (Heparin, Nitro, Insulin, Cardizem)? @ -[Cardizem Were any procedures done? @ -[No] Diagnosis/symptom? @ -[Atrial fibrillation with rapid ventricular rate Elevated troponin Acute, or Chronic, or Acute on Chronic? @ -[Acute Uncomplicated (without systemic symptoms) or Complicated (systemic symptoms)? @ -[Uncomplicated Side effects of treatment? @ -[No] Exacerbation, Progression, or Severe Exacerbation? @ -[No] Poses a threat to life or bodily function? How? (Chest pain, [place], IA, pneumonia, PE, COPD, DKA, ARF, appy, cholecystitis, CVA, Diverticulitis, Homicidal, Suicidal, threat to staff... and all critical care pts) @ -[yes - Lab Data Result diagrams: 06/08/23 08:34 06/08/23 08:34 Lab Results 06/06/23 06/06/23 06/06/23 Range/Units 16:33 16:33 16:33 WBC 12.3 H (3.8-10.6) k/uL RBC 4.60 (4.30-5.90) m/uL Hgb 11.1 L (13.0-17.5) gm/dL Hct 35.7 L (39.0-53.0) % MCV 77.5 L (80.0-100.0) fL MCH 24.1 L (25.0-35.0) pg MCHC 31.0 (31.0-37.0) g/dL RDW 14.9 (11.5-15.5) % Plt Count 356 D (150-450) k/uL MPV 8.7 Neutrophils % 82 % Lymphocytes % 10 % Monocytes % 5 % Eosinophils % 2 % Basophils % 0 % Neutrophils # 10.1 H (1.3-7.7) k/uL Lymphocytes # 1.2 (1.0-4.8) k/uL Monocytes # 0.6 (0-1.0) k/uL Eosinophils # 0.2 (0-0.7) k/uL Basophils # 0.0 (0-0.2) k/uL Hypochromasia Slight PT 11.2 (10.0-12.5) sec INR 1.0 (<1.2) APTT 23.5 (22.0-30.0) sec Sodium 143 (137-145) mmol/L Potassium 3.5 (3.5-5.1) mmol/L Chloride 107 (98-107) mmol/L Carbon Dioxide 26 (22-30) mmol/L Anion Gap 10 mmol/L BUN 30 H (9-20) mg/dL Creatinine 1.15 (0.66-1.25) mg/dL Est GFR (CKD-EPI)AfAm 79 (>60 ml/min/1.73 sqM) Est GFR (CKD-EPI)NonAf 68 (>60 ml/min/1.73 sqM) Glucose 111 H (74-99) mg/dL Calcium 8.8 (8.4-10.2) mg/dL Magnesium 1.8 (1.6-2.3) mg/dL Total Bilirubin 0.8 (0.2-1.3) mg/dL AST 30 (17-59) U/L ALT 66 H (4-49) U/L Alkaline Phosphatase 132 H (38-126) U/L Troponin I (0.000-0.034) ng/mL Total Protein 6.5 (6.3-8.2) g/dL Albumin 3.3 L (3.5-5.0) g/dL TSH 1.660 (0.465-4.680) mIU/L 06/06/23 Range/Units 16:33 WBC (3.8-10.6) k/uL RBC (4.30-5.90) m/uL Hgb (13.0-17.5) gm/dL Hct (39.0-53.0) % MCV (80.0-100.0) fL MCH (25.0-35.0) pg MCHC (31.0-37.0) g/dL RDW (11.5-15.5) % Plt Count (150-450) k/uL MPV Neutrophils % % Lymphocytes % % Monocytes % % Eosinophils % % Basophils % % Neutrophils # (1.3-7.7) k/uL Lymphocytes # (1.0-4.8) k/uL Monocytes # (0-1.0) k/uL Eosinophils # (0-0.7) k/uL Basophils # (0-0.2) k/uL Hypochromasia PT (10.0-12.5) sec INR (<1.2) APTT (22.0-30.0) sec Sodium (137-145) mmol/L Potassium (3.5-5.1) mmol/L Chloride (98-107) mmol/L Carbon Dioxide (22-30) mmol/L Anion Gap mmol/L BUN (9-20) mg/dL Creatinine (0.66-1.25) mg/dL Est GFR (CKD-EPI)AfAm (>60 ml/min/1.73 sqM) Est GFR (CKD-EPI)NonAf (>60 ml/min/1.73 sqM) Glucose (74-99) mg/dL Calcium (8.4-10.2) mg/dL Magnesium (1.6-2.3) mg/dL Total Bilirubin (0.2-1.3) mg/dL AST (17-59) U/L ALT (4-49) U/L Alkaline Phosphatase (38-126) U/L Troponin I 0.065 H* (0.000-0.034) ng/mL Total Protein (6.3-8.2) g/dL Albumin (3.5-5.0) g/dL TSH (0.465-4.680) mIU/L - EKG Data -: EKG Interpreted by [place] EKG shows normal: axis (Normal), intervals (Normal), QRS complexes (Normal) Rate: tachycardia (148 bpm) Interpretation: nonspecific ST-T wave changes, other (Rhythm is atrial fibrillation with rapid ventricular rate) Critical Care Time Critical Care Time: Yes (35 minutes) Disposition Clinical Impression: Atrial fibrillation with RVR Disposition: ADMITTED IP TO THIS HOSP Condition: Stable
--- NOTE | 2023-06-06 16:49 | XR ---
EXAMINATION TYPE: XR chest 1V portable DATE OF EXAM: 06/06/2023 Comparison: 05/31/2023 Clinical History: 63-year-old male abnormal EKG, dysrhythmia Findings: Slight rightward patient rotation casino floor runner cardiomediastinal contours. The heart is [place] its of normal in size. There is hyperinflation. Multifocal patchy bilateral opacities with overall im proving aeration from prior exam. Impression: COPD with residual multifocal patchy opacities though aeration significantly improving from 05/31/2023 . Correlate for any known diagnosis.
[2023-06-06 16:55] LABS: Basophils % (A) 0 %; Eosinophils # (A) 0.2 k/uL (0-0.7); Eosinophils % (A) 2 %; HCT 35.7 % (39.0-53.0); HGB 11.1 gm/dL (13.0-17.5); Hypochromasia Slight; Lymphocytes # (A) 1.2 k/uL (1.0-4.8); Lymphocytes % (A) 10 %; MCH 24.1 pg (25.0-35.0); MCV 77.5 fL (80.0-100.0); Mean Platelet Volume 8.7; Monocytes # (A) 0.6 k/uL (0-1.0); Monocytes % (A) 5 %; Neutrophils # (A) 10.1 k/uL (1.3-7.7); Neutrophils % (A) 82 %; RDW 14.9 % (11.5-15.5); WBC 12.3 k/uL (3.8-10.6)
[2023-06-06 17:07] LABS: Partial Thromboplastin Time 23.5 sec (22.0-30.0); Prothrombin Time 11.2 sec (10.0-12.5)
[2023-06-06 17:08] LABS: ALT 66 U/L (4-49); AST 30 U/L (17-59); African American GFR (CKD) 79 (>60 ml/min/1.73 sqM); Albumin 3.3 g/dL (3.5-5.0); Alkaline Phosphatase 132 U/L (38-126); Anion Gap 10 mmol/L; Blood Urea Nitrogen 30 mg/dL (9-20); Calcium 8.8 mg/dL (8.4-10.2); Carbon Dioxide 26 mmol/L (22-30); Chloride 107 mmol/L (98-107); Glucose 111 mg/dL (74-99); Magnesium 1.8 mg/dL (1.6-2.3); Non-African American GFR(CKD) 68 (>60 ml/min/1.73 sqM); Potassium 3.5 mmol/L (3.5-5.1); Sodium 143 mmol/L (137-145); Total Bilirubin 0.8 mg/dL (0.2-1.3); Total Protein 6.5 g/dL (6.3-8.2)
[2023-06-06 17:14] LABS: Platelet Count 356 k/uL (150-450)
[2023-06-06] MEDS: ENOXAPARIN 60 MG/0.6 ML SYRINGE SQ STA (18:03)
[2023-06-06] MEDS ORDERED: NALOXONE 0.4 MG/ML 1 ML VIAL IV PRN (18:39)
[2023-06-06] MEDS ORDERED: ACETAMINOPHEN TAB 325 MG TAB PO PRN (18:39)
[2023-06-06 19:37] LABS: Appearance,Urine Clear (Clear); Bilirubin,Urine Negative (Negative); Blood,Urine Trace (Negative); Color,Urine Yellow; Glucose,Urine (UA) Negative (Negative); Ketones,Urine Negative (Negative); Leukocyte Esterase,Urine Negative (Negative); Mucus,Urine Rare /hpf; Nitrite,Urine Negative (Negative); PH, Urine 6.5 (5.0-8.0); Protein,Urine 1+ (Negative); RBC,Urine 26 /hpf (0-5); Specific Gravity,Urine 1.022 (1.001-1.035); Squamous Epithelial Cell,Urine <1 /hpf (0-4); Urobilinogen,Urine <2.0 mg/dL (<2.0); WBC,Urine 12 /hpf (0-5)
[2023-06-06] MEDS: SODIUM CHLORIDE 0.9% 1,000 ML IV SCH (20:07)
[2023-06-06] MEDS: HYDROcodone/APAP 10-325MG 1 EACH TAB PO PRN (20:12)
[2023-06-06] MEDS: FAMOTIDINE 20 MG TAB PO SCH (21:20)
[2023-06-07] MEDS: ENOXAPARIN 60 MG/0.6 ML SYRINGE SQ SCH (08:08)
[2023-06-07] MEDS: amLODIPine 5 MG TAB PO SCH (08:08)
[2023-06-07] MEDS: METOPROLOL TARTRATE 12.5 MG TAB PO SCH (08:32)
--- NOTE | 2023-06-07 10:46 | P.CRDCN ---
History of Present Illness Consult date: 06/07/23 Consult reason: atrial fibrillation (WITH RVR) History of present illness: History of present illness: This is a 63-year-old male with past medical history of hypertension, bladder cancer, COPD, generalized anxiety disorder, remote history of tobacco use, remote history of alcohol abuse. Patient was admitted earlier in May for COPD exacerbation and was seen by cardiology for new onset of A-fib with RVR. Patient was transferred to [facility] to have left nephrostomy tube placed and he signed out last week. Patient has had 1 round of immunotherapy for stage IV bladder cancer. We have been asked to evaluate patient now for A-fib with RVR. Patient was sent from Dr. Huang's office where he had a follow-up appointment from his recent hospitalization. Patient had an EKG done that showed atrial fibrillation with RVR and he was sent into [facility] ER for evaluation. Patient has been started on Cardizem drip at 5 mg/h following 5 mg bolus x 3. Patient is seen today in the emergency center waiting for a bed on the cardiac stepdown unit. Patient denies having any blood in his urine. He denies having chest pain and no palpitations. Patient states he has had shortness of breath for the past 3 days. Patient is a poor historian. EKG atrial fibrillation with ventricular rate of 148 bpm, #[address] Huang's o ffice atrial fibrillation with RVR Chest x-ray: COPD with residual multifocal patchy opacities though aeration significantly improved from 05/31/2023. WBC 12.3, hemoglobin 1.1, platelet count 356. INR 1. Electrolytes normal. BUN 30, creatinine 1.15. Blood sugar 111. Calcium 8.8, magnesium 1.8. Troponin 0.065, 0.057, 0.058. Total bilirubin 0.8, AST 30, ALT 66 and alkaline phosphatase 132. TSH 1.66. Urinalysis trace blood, RBCs 26, WBCs 12. Home cardiac medications: Amlodipine 5 mg daily Review Of Systems: At the time of my exam: CONSTITUTIONAL: Denies fever or chills. HEENT: Denies blurred vision, vision changes, or eye pain. Denies hemoptysis CARDIOVASCULAR: Denies chest pain. Denies orthopnea. Denies PND. Denies palpitations RESPIRATORY: + shortness of breath. GASTROINTESTINAL: Denies abdominal pain. Denies nausea or vomiting. HEMATOLOGIC: Denies bleeding disorders. GENITOURINARY: Denies any blood in urine. SKIN: Denies pruitis. Denies rash. Physical examination: Gen: This is a 63-year-old cachectic appearing male in no acute distress VS: reviewed HEENT: Head is atraumatic, normocephalic. Pupils equal, round. Sclerae is anicteric. NECK: Supple. No JVD. LUNGS: Clear to auscultation. No wheezes or rhonchi. No intercostal retractions. HEART: Irregular rate and rhythm. No murmur. ABDOMEN: Soft No tenderness. EXTREMITIES: No pedal edema. No calf tenderness. NEUROLOGICAL: Patient is awake, alert and oriented. Assessment: Persistent atrial fibrillation with RVR Stage IV bladder cancer COPD Hypertension Generalized anxiety disorder Remote history of tobacco use, quit in January 2023 Remote history of alcohol abuse, quit January 2023 Plan: Resume patient's home cardiac medications Start patient on Lopressor 12.5 mg twice daily patient is currently bradycardic Discontinue Cardizem drip Obtain 2-D echocardiogram and Doppler study to assess cardiac structure and function Further recommendations to follow based upon clinical course Thank you kindly for this consultation. Nurse practitioner note has been reviewed, I agree with documented findings and plan of care. Patient was seen and examined. Past Medical History Past Medical History: No Reported History, Atrial Fibrillation, COPD Additional Past Medical History / Comment(s): bladder cancer History of Any Multi-Drug Resistant Organisms: None Reported Past Surgical History: No Surgical Hx Reported Additional Past Surgical History / Comment(s): 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 Past Anesthesia/Blood Transfusion Reactions: No Reported Reaction Past Psychological History: No Psychological Hx Reported Smoking Status: Former smoker Past Alcohol Use History: Occasional Past Drug Use History: None Reported - Past Family History Father Family Medical History: Cancer Additional Family Medical History / Comment(s): lung cancer, smoker Medications and Allergies Home Medications Medication Instructions Recorded Confirmed Type Ondansetron [Zofran] 4 mg PO Q4H PRN 05/25/23 06/06/23 History amLODIPine [Norvasc] 5 mg PO DAILY 05/25/23 06/06/23 History HYDROcodone/APAP 10-325MG [Delta 0.5 - 1 tab PO Q4HR PRN 06/06/23 06/06/23 History 10-325] Psyllium Husk (with Sugar) 6 gm PO DAILY PRN 06/06/23 06/06/23 History [Metamucil Powder] Allergies Allergy/AdvReac Type Severity Reaction Status Date / Time Iodinated Contrast Media Allergy Neck Verified 06/06/23 16:52 swelling Physical Exam Vitals: Vital Signs Temp Pulse Pulse Resp BP Pulse Ox 06/07/23 06:52 100 18 108/76 95 06/07/23 04:38 101 H 18 98/75 95 06/07/23 03:25 98.0 F 105 H 16 121/103 95 06/06/23 21:46 108 H 18 116/78 93 L 06/06/23 20:08 110 H 22 100/77 95 06/06/23 19:35 135 H 24 87/75 06/06/23 19:15 128 H 26 H 06/06/23 18:30 140 H 18 110/87 06/06/23 18:02 109 H 18 92/74 93 L 06/06/23 17:35 140 H 18 116/72 95 06/06/23 16:37 151 H 06/06/23 16:33 152 H 18 93/65 93 L 06/06/23 15:55 65 18 96/67 94 L Intake and Output 06/06/23 06/07/23 06/07/23 22:59 06:59 14:59 Other: Weight 60.781 kg Results 06/06/23 16:33 06/06/23 16:33 Cardiac Enzymes 06/06/23 06/06/23 06/06/23 Range/Units 16:33 16:33 20:44 AST 30 (17-59) U/L Troponin I 0.065 H* 0.057 H* (0.000-0.034) ng/mL 06/06/23 Range/Units 23:21 AST (17-59) U/L Troponin I 0.058 H* (0.000-0.034) ng/mL Coagulation 06/06/23 Range/Units 16:33 PT 11.2 (10.0-12.5) sec APTT 23.5 (22.0-30.0) sec CBC 02/28/24 Range/Units 16:33 WBC 12.3 H (3.8-10.6) k/uL RBC 4.60 (4.30-5.90) m/uL Hgb 11.1 L (13.0-17.5) gm/dL Hct 35.7 L (39.0-53.0) % Plt Count 356 D (150-450) k/uL Comprehensive Metabolic Panel 06/06/23 Range/Units 16:33 Sodium 143 (137-145) mmol/L Potassium 3.5 (3.5-5.1) mmol/L Chloride 107 (98-107) mmol/L Carbon Dioxide 26 (22-30) mmol/L BUN 30 H (9-20) mg/dL Creatinine 1.15 (0.66-1.25) mg/dL Glucose 111 H (74-99) mg/dL Calcium 8.8 (8.4-10.2) mg/dL AST 30 (17-59) U/L ALT 66 H (4-49) U/L Alkaline Phosphatase 132 H (38-126) U/L Total Protein 6.5 (6.3-8.2) g/dL Albumin 3.3 L (3.5-5.0) g/dL Current Medications Generic Name Dose Route Start Last Admin Trade Name Freq PRN Reason Stop Dose Admin Acetaminophen 650 mg 06/06/23 18:39 Acetaminophen Tab 325 Mg Tab PO Q6HR PRN Mild Pain or Fever > 100.5 Hydrocodone Bitart/Acetaminophen 1 each 06/06/23 18:41 06/07/23 04:51 Hydrocodone/Apap 10-325mg 1 Each Tab PO 1 each Q4HR PRN Administration Pain Amlodipine Besylate 5 mg 06/07/23 09:00 Amlodipine 5 Mg Tab PO DAILY [facility] Enoxaparin Sodium 60 mg 06/07/23 06:00 Enoxaparin 60 Mg/0.6 Ml Syringe SQ Q12H [facility] Famotidine 20 mg 06/06/23 21:00 06/06/23 21:20 Famotidine 20 Mg Tab PO 20 mg BID [facility] Administration Diltiazem HCl 125 mg/ Sodium 125 mls @ 5 mls/hr 06/06/23 16:30 06/06/23 16:36 Chloride IV 5 mg/hr .Q24H [facility] 5 mls/hr Administration 5 MG/HR Sodium Chloride 1,000 mls @ 20 mls/hr 06/06/23 18:45 06/06/23 20:07 Saline 0.9% IV 20 mls/hr .Q24H [facility] Administration Naloxone HCl 0.2 mg 06/06/23 18:39 Naloxone 0.4 Mg/Ml 1 Ml Vial IV Q2M PRN Opioid Reversal Intake and Output 06/06/23 06/07/23 06/07/23 22:59 06:59 14:59 Other: Weight 60.781 kg 06/06/23 16:33 06/06/23 16:33
--- NOTE | 2023-06-07 17:42 | CA ---
Transthoracic Echo Report Name: Jones Jimenez Age: 63 Gender: M : 1960 Exam Date: 06/07/2023 13:46 Exam Location: [place] [facility] Ht (in): 73 Wt (lb): 134 Ordering Physician: Vilma Restrepo Attending/Referring Phys: [id number], Lauro Pickle Cutter Dahiana Gonsalves RCS Procedure CPT: Indications: LVF Cardiac Hx: Study limited to subcostal window due to limited acoustic windows. Technical Quality: Technically difficult study Contrast 1: Total Dose (mL): Contrast 2: Total Dose (mL): MEASUREMENTS (Male / Female) Normal Values 2D ECHO LV Diastolic Diameter PLAX 5.0 cm 4.2 - 5.9 / 3.9 - 5.3 cm LV Systolic Diameter PLAX 2.4 cm IVS Diastolic Thickness 0.8 cm 0.6 - 1.0 / 0.6 - 0.9 cm LVPW Diastolic Thickness 1.0 cm 0.6 - 1.0 / 0.6 - 0.9 cm LV Relative Wall Thickness 0.3 DOPPLER AV Peak Velocity 115.4 cm/s AV Peak Gradient 5.3 mmHg AV Mean Velocity 88.7 cm/s AV Mean Gradient 3.4 mmHg AV Velocity Time Integral 26.1 cm LVOT Peak Velocity 89.2 cm/s LVOT Peak Gradient 3.2 mmHg LVOT Velocity Time Integral 18.3 cm Mitral E Point Velocity 62.3 cm/s Mitral A Point Velocity 36.4 cm/s Mitral E to A Ratio 1.7 MV Deceleration Time 218.8 ms MV E' Velocity 7.7 cm/s Mitral E to MV E' Ratio 8.1 TR Peak Velocity 209.5 cm/s TR Peak Gradient 17.6 mmHg PV Peak Velocity 85.5 cm/s PV Peak Gradient 2.9 mmHg FINDINGS Left Ventricle Left ventricular ejection fraction is estimated at 50-55 %. Left ventricular cavity size normal. Left ventricular wall thickness normal. No obvious regional wall motion abnormalities. Right Ventricle Right ventricle not well visualized. Right ventricular systolic pressure within normal limits. Right Atrium Normal right atrial size. Left Atrium Normal left atrial size. Mitral Valve Mitral valve thickened. No mitral stenosis. No evidence for mitral valve prolapse. Trace mitral regurgitation. Aortic Valve Trileaflet aortic valve. No aortic valve stenosis or regurgitation. Tricuspid Valve Structurally normal tricuspid valve. No tricuspid stenosis. Mild tricuspid regurgitation. Pulmonic Valve Structurally normal pulmonic valve. No pulmonic regurgitation. No pulmonic stenosis. Pericardium No pericardial effusion. Aorta Normal size aortic root and proximal ascending aorta. CONCLUSIONS Normal LV function Mild mitral regurgitation Previewed by: Dr. Bashir Marie MD (Electronically Signed) Final Date: 07 June 2023 17:41
--- NOTE | 2023-06-07 22:07 | P.HPIM ---
History of Present Illness H&P Date: 06/07/23 Chief Complaint: Palpitations and generalized weakness Patient is a 63-year-old male with a past medical history of stage IV bladder cancer, left moderate hydronephrosis status post nephrostomy tube placement at [facility] recently, atrial fibrillation, COPD, iron deficiency anemia and hypertension, anxiety and other medical problems presents to ER with complaints of palpitations, generalized weakness and fatigue and shortness of breath. Patient was seen at Dr. Huang's office yesterday and was found to have atrial fibrillation with rapid ventricular rate and was sent to ER. Otherwise patient denies any complaints of chest pain. Denies any fever or chills. No leg swelling. Patient is somewhat poor historian. Patient was recently admitted to the hospital from 05/26/2023 to 05/31/2023. Patient was found to have acute kidney injury and left hydronephrosis. Patient did require heparin drip and Cardizem drip for heart rate control at that time due to new onset A-fib with RVR.. Patient was eventually transferred to [facility] for nephrostomy tube placement. Renal function did improve creatinine currently. apparently patient signed out from [facility]. Chest x-ray showed COPD with residual multifocal patchy opacities throughout aeration significantly improving from 06/01/2023. Correlate for any known diagnosis. EKG showed atrial fibrillation with rapid ventricular response with heart rate 148 Laboratory data showed WBC 12.3 hemoglobin 11.1 and platelets 356 MCV 77.5 Sodium 143 potassium 3.5 chloride 107 bicarb is 26 BUN 13 creatinine 1.15 and blood sugar 111 ALT 66 alk phos 132 Troponin 0.065, 0.057 and 0.058 Albumin 3.3 and TSH 1.66 Urinalysis showed leukocyte esterase negative urine RBCs and WBCs 26 and 12 respectively. Review of Systems Constitutional: Patient denies any fever or chills . Generalized weakness and fatigue. Abdomen: Patient denied nausea vomiting and diarrhea and abdominal pain. Cardiovascular: Patient denies any chest pain. Patient does have shortness of breath and palpitations. No leg swelling Respiratory: patient denied any cough is from production. Positive for shortness of breath Neurologic: Patient denied any numbness or tingling headache. Musculoskeletal: Patient denies any complaints of joint swelling or deformity. Skin: Negative Psychiatric: Negative Endocrine: No heat or cold intolerance. No recent weight gain. Genitourinary: No dysuria or hematuria. All other 14 point ROS negative except the above Past Medical History Past Medical History: No Reported History, Atrial Fibrillation, COPD Additional Past Medical History / Comment(s): bladder cancer History of Any Multi-Drug Resistant Organisms: None Reported Past Surgical History: No Surgical Hx Reported Additional Past Surgical History / Comment(s): 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 Past Anesthesia/Blood Transfusion Reactions: No Reported Reaction Past Psychological History: No Psychological Hx Reported Smoking Status: Former smoker Past Alcohol Use History: Occasional Past Drug Use History: None Reported - Past Family History Father Family Medical History: Cancer Additional Family Medical History / Comment(s): lung cancer, smoker Medications and Allergies Home Medications Medication Instructions Recorded Confirmed Type Ondansetron [Zofran] 4 mg PO Q4H PRN 05/25/23 06/06/23 History amLODIPine [Norvasc] 5 mg PO DAILY 05/25/23 06/06/23 History HYDROcodone/APAP 10-325MG [Maize 0.5 - 1 tab PO Q4HR PRN 06/06/23 06/06/23 History 10-325] Psyllium Husk (with Sugar) 6 gm PO DAILY PRN 06/06/23 06/06/23 History [Metamucil Powder] Allergies Allergy/AdvReac Type Severity Reaction Status Date / Time Iodinated Contrast Media Allergy Neck Verified 06/06/23 16:52 swelling Physical Exam Vitals: Vital Signs Temp Pulse Pulse Resp BP BP Pulse Ox 06/07/23 08:05 66 16 114/84 93 L 06/07/23 06:52 100 18 108/76 95 06/07/23 04:38 101 H 18 98/75 95 06/07/23 03:25 98.0 F 105 H 16 121/103 95 06/06/23 21:46 108 H 18 116/78 93 L 06/06/23 20:08 110 H 22 100/77 95 06/06/23 19:35 135 H 24 87/75 06/06/23 19:15 128 H 26 H 06/06/23 18:30 140 H 18 110/87 06/06/23 18:02 109 H 18 92/74 93 L 06/06/23 17:35 140 H 18 116/72 95 06/06/23 16:37 151 H 06/06/23 16:33 152 H 18 93/65 93 L 06/06/23 15:55 65 18 96/67 94 L Intake and Output 06/06/23 06/07/23 06/07/23 22:59 06:59 14:59 Intake Total 206.25 Output Total 175 Balance 31.25 Intake: IV 10 Invasive Line 1 10 Intake, IV Titration 78.25 Amount Diltiazem 125 mg In 78.25 Sodium Chloride 0.9% 100 ml @ 5 MG/HR 5 mls/hr IV .Q24H [facility] Rx#:[id number] Oral 118 Output: Urine 175 Other: Weight 60.781 kg 60.781 kg PHYSICAL EXAMINATION: Patient is lying in the bed comfortably, no acute distress, awake alert and oriented, anxious... HEENT: Normocephalic. Neck is supple. Pupils reactive. Nostrils clear. Oral cavity is moist. Neck reveals no JVD, carotid bruits, or thyromegaly. CHEST EXAMINATION: Trachea is central. Symmetrical expansion. Bibasilar diminished sounds. No wheezing.. CARDIAC: Normal S1, S2 with no gallops. No murmurs. Irregularly irregular rhythm. ABDOMEN: Soft. Bowel sounds normal. No organomegaly. No abdominal bruits. Extremities: reveal no edema. No clubbing or cyanosis Neurologically awake, alert, oriented x 2-3 with well-coordinated movements. No focal deficits noted Skin: No rash or skin lesions. Psychiatric: Coperative. Nonsuicidal. Anxious. Musculoskeletal: No joint swelling or deformity. Normal range of motion. Results CBC & Chem 7: 06/06/23 16:33 06/06/23 16:33 Labs: Abnormal Lab Results - Last 24 Hours (Table) 06/06/23 06/06/23 06/06/23 Range/Units 16:33 16:33 16:33 WBC 12.3 H (3.8-10.6) k/uL Hgb 11.1 L (13.0-17.5) gm/dL Hct 35.7 L (39.0-53.0) % MCV 77.5 L (80.0-100.0) fL MCH 24.1 L (25.0-35.0) pg Neutrophils # 10.1 H (1.3-7.7) k/uL BUN 30 H (9-20) mg/dL Glucose 111 H (74-99) mg/dL ALT 66 H (4-49) U/L Alkaline Phosphatase 132 H (38-126) U/L Troponin I 0.065 H* (0.000-0.034) ng/mL Albumin 3.3 L (3.5-5.0) g/dL Urine Protein (Negative) Urine Blood (Negative) Urine RBC (0-5) /hpf Urine WBC (0-5) /hpf Urine Mucus (None) /hpf 06/06/23 06/06/23 06/06/23 Range/Units 19:10 20:44 23:21 WBC (3.8-10.6) k/uL Hgb (13.0-17.5) gm/dL Hct (39.0-53.0) % MCV (80.0-100.0) fL MCH (25.0-35.0) pg Neutrophils # (1.3-7.7) k/uL BUN (9-20) mg/dL Glucose (74-99) mg/dL ALT (4-49) U/L Alkaline Phosphatase (38-126) U/L Troponin I 0.057 H* 0.058 H* (0.000-0.034) ng/mL Albumin (3.5-5.0) g/dL Urine Protein 1+ H (Negative) Urine Blood Trace H (Negative) Urine RBC 26 H (0-5) /hpf Urine WBC 12 H (0-5) /hpf Urine Mucus Rare H (None) /hpf Thrombosis Risk Factor Assmnt - DVT/VTE Prophylaxis DVT/VTE Prophylaxis: Pharmacologic Prophylaxis ordered - Choose All That Apply Any of the Below Risk Factors Present?: No Other Risk Factors: Yes Each Risk Factor Represents 2 Points: Age 61-74 years, Malignancy Other congenital or acquired thrombophilia - If yes, enter type in comment: No Thrombosis Risk Factor Assessment Total Risk Factor Score: 4 Thrombosis Risk Factor Assessment Level: Moderate Risk Assessment and Plan Assessment: Persistent atrial fibrillation with rapid ventricular rate. Elevated troponin level likely demand ischemia Recent admission with left hydronephrosis and acute kidney injury due to obstructive uropathy status post nephrostomy tube placed recommend [facility] Stage IV bladder cancer/metastatic muscle invasive bladder cancer Microcytic iron deficiency anemia COPD not in exacerbation Hypertension Generalized anxiety Prior history of smoking DVT prophylaxis. Patient is already on Lovenox therapeutic dose. Plan: Patient was continued on Cardizem drip for heart rate control. Continue with anticoagulation with Lovenox subcu Cardiology recommended to start on metoprolol 12.5 mg twice daily. Heart rate is better controlled now. Cardizem drip has been discontinued. Chronic pain management. Follow-ups CBC and BMP tomorrow. Time with Patient: Greater than 30
[2023-06-08 09:36] VITALS: RESP 20
[2023-06-08 09:45] LABS: African American GFR (CKD) 88 (>60 ml/min/1.73 sqM); Anion Gap 5 mmol/L; Blood Urea Nitrogen 18 mg/dL (9-20); Calcium 8.4 mg/dL (8.4-10.2); Carbon Dioxide 24 mmol/L (22-30); Chloride 109 mmol/L (98-107); Glucose 97 mg/dL (74-99); Non-African American GFR(CKD) 76 (>60 ml/min/1.73 sqM); Sodium 138 mmol/L (137-145)
[2023-06-08 09:46] LABS: Basophils % (A) 0 %; Eosinophils # (A) 0.5 k/uL (0-0.7); Eosinophils % (A) 4 %; HGB 10.7 gm/dL (13.0-17.5); Hypochromasia Slight; Lymphocytes % (A) 9 %; MCH 24.5 pg (25.0-35.0); MCHC 31.3 g/dL (31.0-37.0); MCV 78.1 fL (80.0-100.0); Mean Platelet Volume 9.7; Monocytes # (A) 0.6 k/uL (0-1.0); Monocytes % (A) 5 %; Neutrophils # (A) 9.5 k/uL (1.3-7.7); Neutrophils % (A) 81 %; Platelet Count 367 k/uL (150-450); RBC 4.36 m/uL (4.30-5.90); RDW 15.1 % (11.5-15.5); WBC 11.7 k/uL (3.8-10.6)
[2023-06-08 11:35] VITALS: BP 144/74; PULSE 58; TEMP 97.6
--- NOTE | 2023-06-08 12:06 | P.PN ---
Subjective Progress Note Date: 06/08/23 Consult reason: atrial fibrillation (WITH RVR) History of present illness: History of present illness: This is a 63-year-old male with past medical history of hypertension, bladder cancer, COPD, generalized anxiety disorder, remote history of tobacco use, remote history of alcohol abuse. Patient was admitted earlier in May for COPD exacerbation and was seen by cardiology for new onset of A-fib with RVR. Patient was transferred to [facility] to have left nephrostomy tube placed and he signed out last week. Patient has had 1 round of immunotherapy for stage IV bladder cancer. We have been asked to evaluate patient now for A-fib with RV R. Patient was sent from Dr. Huang's office where he had a follow-up appointment from his recent hospitalization. Patient had an EKG done that showed atrial fibrillation with RVR and he was sent into [facility] ER for evaluation. Patient has been started on Cardizem drip at 5 mg/h following 5 mg bolus x 3. Patient is seen today in the emergency center waiting for a bed on the cardiac stepdown unit. Patient denies having any blood in his urine. He denies having chest pain and no palpitations. Patient states he has had shortness of breath for the past 3 days. Patient is a poor historian. EKG atrial fibrillation with ventricular rate of 148 bpm, #[address] Huang's office atrial fibrillation with RVR Chest x-ray: COPD with residual multifocal patchy opacities though aeration significantly improved from 05/31/2023. WBC 12.3, hemoglobin 1.1, platelet count 356. INR 1. Electrolytes normal. BUN 30, creatinine 1.15. Blood sugar 111. Calcium 8.8, magnesium 1.8. Troponin 0.065, 0.057, 0.058. Total bilirubin 0.8, AST 30, ALT 66 and alkaline phosphatase 132. TSH 1.66. Urinalysis trace blood, RBCs 26, WBCs 12. Home cardiac medications: Amlodipine 5 mg daily 06/07 Patient seen today on the cardiac stepdown unit. He denies having any chest pain. He states his breathing is okay and has been chronically heavy breathing. Regarding bladder cancer, patient has a follow-up appointment with Dr. Bernardo on July 01. Blood pressure 141/84, heart rate 60, pulse ox 95% on 2 L nasal cannula. Repeat blood work reveals WBC 11.7, hemoglobin 10.7. Creatinine 1.05. Patient states he does not have any hematuria at this time. Discussed option of Lexiscan stress test or cardiac catheterization. At this time, patient would rather follow-up in the office and do any further testing outpatient. Physical examination: Gen: This is a 63-year-old cachectic appearing male in no acute distress VS: reviewed HEENT: Head is atraumatic, normocephalic. Pupils equal, round. Sclerae is anicteric. LUNGS: Clear to auscultation. No wheezes or rhonchi. No intercostal retractions. HEART: Irregular rate and rhythm. No murmur. ABDOMEN: Soft No tenderness. EXTREMITIES: No pedal edema. No calf tenderness. NEUROLOGICAL: Patient is awake, alert and oriented. Assessment: Persistent atrial fibrillation with RVR Elevated troponin Stage IV bladder cancer COPD Hypertension Generalized anxiety disorder Remote history of tobacco use, quit in January 2023 Remote history of alcohol abuse, quit January 2023 Plan: Continue patient's current cardiac medications patient's home cardiac m edications Start patient on Eliquis 2.5 mg twice daily as he has history of recent hematuria as well as recent acute kidney injury Patient is cleared for discharge from cardiology and will follow-up with Dr. Alejandra next Sunday. Nurse practitioner note has been reviewed, I agree with documented findings and plan of care. Patient was seen and examined. Objective - Vital Signs Vital signs: Vital Signs Temp 98.0 F 06/08/23 04:00 Pulse 62 06/08/23 04:00 Resp 16 06/08/23 04:00 BP 141/84 06/08/23 04:00 Pulse Ox 95 06/08/23 04:00 FiO2 Intake & Output 06/07/23 06/08/23 06/08/23 18:59 06:59 18:59 Intake Total 206.25 360 Output Total 175 Balance 31.25 360 Weight 60.781 kg Intake: IV 10 Invasive Line 1 10 Intake, IV Titration 78.25 Amount Diltiazem 125 mg In 78.25 Sodium Chloride 0.9% 100 ml @ 5 MG/HR 5 mls/hr IV .Q24H [facility] Rx#:[id number] Oral 118 360 Output: Urine 175 Other: Voiding Method Toilet # Voids 1 # Bowel Movements 0 - Labs CBC & Chem 7: 06/08/23 08:34 06/08/23 08:34
[2023-06-08] MEDS ORDERED: APIXABAN 2.5 MG TABLET PO SCH (21:00)
--- NOTE | 2023-06-08 22:52 | P.DS ---
Providers Date of admission: 06/06/23 18:41 Expected date of discharge: 06/08/23 Attending physician: Barbara Conde Consults: 06/06/23 18:39 Consult Physician Routine Consulting Provider: Edvin Alejandra Consult Reason/Comments: Atrial fibrillation with rapid ventricular rate Do you want consulting provider notified?: Yes Primary care physician: Stated None Hospital Course: Discharge diagnosis Persistent atrial fibrillation with rapid ventricular rate. Controlled now. Started on anticoagulation with Eliquis Elevated troponin level likely demand ischemia Recent admission with left hydronephrosis and acute kidney injury due to obstructive uropathy status post nephrostomy tube placed recommend [facility] Stage IV bladder cancer/metastatic muscle invasive bladder cancer Microcytic iron deficiency anemia COPD not in exacerbation Hypertension Generalized anxiety Prior history of smoking DVT prophylaxis. Patient is already on Lovenox therapeutic dose. Hospital course Patient is a 63-year-old male with a past medical history of stage IV bladder cancer, left moderate hydronephrosis status post nephrostomy tube placement at [facility] recently, atrial fibrillation, COPD, iron deficiency anemia and hypertension, anxiety and other medical problems presents to ER with complaints of palpitations, generalized weakness and fatigue and shortness of breath. Patient was seen at Dr. Huang's office yesterday and was found to have atrial fibrillation with rapid ventricular rate and was sent to ER. Otherwise patient denies any complaints of chest pain. Denies any fever or chills. No leg swelling. Patient is somewhat poor historian. Patient was recently admitted to the hospital from 05/26/2023 to 05/31/2023. Patient was found to have acute kidney injury and left hydronephrosis. Patient did require heparin drip and Cardizem drip for heart rate control at that time due to new onset A-fib with RVR.. Patient was eventually transferred to [facility] for nephrostomy tube placement. Renal function did improve creatinine currently. apparently patient signed out from [facility]. Chest x-ray showed COPD with residual multifocal patchy opacities throughout aeration significantly improving from 06/01/2023. Correlate for any known diagnosis. EKG showed atrial fibrillation with rapid ventricular response with heart rate 148 Laboratory data showed WBC 12.3 hemoglobin 11.1 and platelets 356 MCV 77.5 Sodium 143 potassium 3.5 chloride 107 bicarb is 26 BUN 13 creatinine 1.15 and blood sugar 111 ALT 66 alk phos 132 Troponin 0.065, 0.057 and 0.058 Albumin 3.3 and TSH 1.66 Urinalysis showed leukocyte esterase negative urine RBCs and WBCs 26 and 12 respectively. 06/08/2023 Patient is currently sitting in the chair. Awake alert and oriented x 3. Feels better today. No complaints of dizziness or lightheadedness. Patient was started on metoprolol 12.5 mg twice daily. Also on anticoagulation with Eliquis 2.5 mg twice daily. Patient has been afebrile. No nausea vomiting abdominal pain or diarrhea. Tolerating oral diet. Laboratory data showed WBC 11.7 came down from 12.3 hemoglobin 10.7 platelets 367 Sodium 138 potassium 4.0 chloride 109 bicarb is 24 BUN 18 and creatinine 1.05. Patient is cleared from cardiology standpoint. Patient is being discharged home today. Follow-up with cardiology and primary care physician oncology and urology as an outpatient. Left nephrostomy tube showed urine output. Patient does not want Lexiscan stress test or cardiac catheterization at this time. Recommend to follow-up as an outpatient. PHYSICAL EXAMINATION: Patient is lying in the bed comfortably, no acute distress, awake alert and oriented.. HEENT: Normocephalic. Neck is supple. Pupils reactive. Nostrils clear. Oral cavity is moist. Neck reveals no JVD, carotid bruits, or thyromegaly. CHEST EXAMINATION: Trachea is central. Symmetrical expansion. Lung emehan clear to auscultation and percussion. CARDIAC: Normal S1, S2 with no gallops. No murmurs ABDOMEN: Soft. Bowel sounds normal. No organomegaly. No abdominal bruits. Left nephrostomy tube in place Extremities: reveal no edema. No clubbing or cyanosis Neurologically awake, alert, oriented x3 with well-coordinated movements. No focal deficits noted Skin: No rash or skin lesions. Psychiatric: Coperative. Nonsuicidal. Anxious. Musculoskeletal: No joint swelling or deformity. Normal range of motion. Vital signs: Vital Signs Temp 98.0 F 06/08/23 04:00 Pulse 62 06/08/23 04:00 Resp 16 06/08/23 04:00 BP 141/84 06/08/23 04:00 Pulse Ox 95 06/08/23 04:00 FiO2 Intake & Output 0206/08/23 06/08/23 18:59 06:59 18:59 Intake Total 206.25 360 Output Total 175 Balance 31.25 360 Weight 60.781 kg Intake: IV 10 Invasive Line 1 10 Intake, IV Titration 78.25 Amount Diltiazem 125 mg In 78.25 Sodium Chloride 0.9% 100 ml @ 5 MG/HR 5 mls/hr IV .Q24H [facility] Rx#:[id number] Oral 118 360 Output: Urine 175 Other: Voiding Method Toilet # Voids 1 # Bowel Movements 0 Total time taken greater than 35 minutes including 18 minutes for counseling and coordination of care. Patient Condition at Discharge: Stable Plan - Discharge Summary Discharge Rx Participant: Yes New Discharge Prescriptions: New Apixaban [Eliquis] 2.5 mg PO BID #60 tab Metoprolol Tartrate [Lopressor] 12.5 mg PO BID #60 tab Continue amLODIPine [Norvasc] 5 mg PO DAILY Ondansetron [Zofran] 4 mg PO Q4H PRN PRN Reason: Nausea HYDROcodone/APAP 10-325MG [Randolph 10-325] 0.5 - 1 tab PO Q4HR PRN PRN Reason: Pain Psyllium Husk (with Sugar) [Metamucil Powder] 6 gm PO DAILY PRN PRN Reason: Constipation Discharge Medication List Ondansetron [Zofran] 4 mg PO Q4H PRN 05/25/23 [History] amLODIPine [Norvasc] 5 mg PO DAILY 05/25/23 [History] HYDROcodone/APAP 10-325MG [Randolph 10-325] 0.5 - 1 tab PO Q4HR PRN 06/06/23 [History] Psyllium Husk (with Sugar) [Metamucil Powder] 6 gm PO DAILY PRN 06/06/23 [History] Apixaban [Eliquis] 2.5 mg PO BID #60 tab 06/08/23 [Rx] Metoprolol Tartrate [Lopressor] 12.5 mg PO BID #60 tab 06/08/23 [Rx] Follow up Appointment(s)/Referral(s): Edvin Alejandra MD [STAFF PHYSICIAN] - 1 Week (Monday 06/12. [facility] office will call with an appointment time.) None,Stated [Primary Care Provider] - 1-2 days Patient Instructions/Handouts: A-fib (Atrial Fibrillation) (DC) Discharge Disposition: HOME SELF-CARE
== END 2023-06-08 13:33 | disposition home or self-care (01) ==
LOC: EC 15:50 → 3SCARD 18:41 → INTOOBSV 18:41 → 3SCARD 20:47 → UNDODISIN 06-08 13:33
PROVIDERS: ADMIT Hospitalist; ATTEND Hospitalist
DX: I48.19 Other persistent atrial fibrillation (principal); R79.89 Other specified abnormal findings of blood chemistry; I10 Essential (primary) hypertension; J44.9 Chronic obstructive pulmonary disease, unspecified; F41.1 Generalized anxiety disorder; D50.9 Iron deficiency anemia, unspecified; Z85.51 Personal history of malignant neoplasm of bladder; Z87.891 Personal history of nicotine dependence; Z79.899 Other long term (current) drug therapy
CPT/HCPCS: 96372 ×4; 96376; 96361; 96374; 99291; 36415; 93005; 93306; 80053; 80048; 83735; 84443; 84484; 85025 ×2; 85610; 85730; 81001; 71045; G0378 ×3; J1650 ×3; 96365; 96366

== ENCOUNTER 2023-07-01 14:52 | Inpatient (IN) | payer OTHER ==
--- NOTE | 2023-07-01 15:18 | ED ---
Male Urogenital HPI - General Chief complaint: Urogenital Stated complaint: blood in urine pain Time Seen by Provider: 07/01/23 15:05 Source: patient, family, RN notes reviewed Mode of arrival: ambulatory Limitations: no limitations - History of Present Illness Initial comments: 63-year-old male with a history of bladder cancer who is currently getting immunotherapy at [facility] who also has a history of atrial fibrillation and COPD history of renal failure in the past who presents today with complaints of weakness lightheadedness going on for the past several days he also had blood in his urine this morning he does have a left nephrostomy tube and no blood in that however. Patient does state he has been having for the past 2 nights epi sodes of chills and later hot flashes. He also had some sweats. He does persist having lightheadedness however this was the main reason why he came in today besides the hematuria. He was noted at home to have a blood pressure 95/69 later 106/68 in our triage area upon arrival ranging from 70-78 systolic blood pressure. MD Complaint: other - Related Data Home Medications Medication Instructions Recorded Confirmed Ondansetron [Zofran] 4 mg PO Q4H PRN 05/25/23 07/01/23 amLODIPine [Norvasc] 5 mg PO DAILY@0900 05/25/23 07/01/23 HYDROcodone/APAP 10-325MG [Rumsey 0.5 - 1 tab PO Q4HR PRN 06/06/23 07/01/23 10-325] Psyllium Husk (with Sugar) 6 gm PO DAILY PRN 06/06/23 07/01/23 [Metamucil Powder] Apixaban [Eliquis] 2.5 mg PO BID@0900,209907/01/23 07/01/23 Budesonide/Formoterol Fumarate 2 puff INHALATION RT-BID PRN 07/01/23 07/01/23 [Symbicort 160-4.5 Mcg Inhaler] Ipratropium-Albuterol Nebulize 3 ml INHALATION RT-QID PRN 07/01/23 07/01/23 [Duoneb 0.5 mg-3 mg/3 ml Soln] Metoprolol Tartrate [Lopressor] 12.5 mg PO BID@0900,209907/01/23 07/01/23 Allergies Allergy/AdvReac Type Severity Reaction Status Date / Time Iodinated Contrast Media Allergy Neck Verified 07/01/23 20:02 swelling Review of Systems ROS Statement: Those systems with pertinent positive or pertinent negative responses have been documented in the HPI. ROS Other: All systems not noted in ROS Statement are negative. 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 Past Anesthesia/Blood Transfusion Reactions: No Reported Reaction Past Psychological History: No Psychological Hx Reported Smoking Status: Former smoker Past Alcohol Use History: Occasional Past Drug Use History: None Reported - Past Family History Father Family Medical History: Cancer Additional Family Medical History / Comment(s): lung cancer, smoker General Exam - General Exam Comments Initial Comments: This is a well-developed asthenic appearing male who is awake alert oriented x 4 Limitations: no limitations General appearance: alert, anxious Head exam: Present: atraumatic, normocephalic, normal inspection Eye exam: Present: normal appearance, PERRL, EOMI. Absent: scleral icterus, conjunctival injection, periorbital swelling ENT exam: Present: mucous membranes dry Neck exam: Present: normal inspection, full ROM, other (No stridor JVD or bruits). Absent: tenderness, meningismus, lymphadenopathy Respiratory exam: Present: normal lung sounds bilaterally. Absent: respiratory distress, wheezes, rales, rhonchi, stridor Cardiovascular Exam: Present: tachycardia, irregular rhythm. Absent: systolic murmur, diastolic murmur, rubs, gallop, clicks GI/Abdominal exam: Present: soft, normal bowel sounds. Absent: distended, tenderness, guarding, rebound, rigid, bruit, pulsatile mass Rectal exam: Present: deferred exam: Present: normal inspection Extremities exam: Present: normal inspection, full ROM, normal capillary refill. Absent: tenderness, pedal edema, joint swelling, calf tenderness Back exam: Present: other (Nephrostomy tube left side marina appearing urine) Neurological exam: Present: alert, oriented X3, CN II-XII intact Psychiatric exam: Present: normal affect, normal mood Skin exam: Present: warm, dry, intact, normal color. Absent: rash Course Vital Signs 07/01/23 07/01/23 07/01/23 14:59 15:30 16:00 Temperature 97.6 F Pulse Rate 97 111 H 103 H Respiratory 20 13 18 Rate Blood Pressure 71/43 109/83 90/71 O2 Sat by Pulse 98 98 98 Oximetry 07/01/23 07/01/23 07/01/23 16:30 16:38 17:00 Temperature Pulse Rate 103 H 104 H 115 H Respiratory 19 18 19 Rate Blood Pressure 96/72 106/91 123/84 O2 Sat by Pulse 98 97 Oximetry 07/01/23 07/01/23 07/01/23 17:30 18:00 18:30 Temperature Pulse Rate 135 H 128 H 120 H Respiratory 20 17 15 Rate Blood Pressure 96/68 106/79 104/81 O2 Sat by Pulse 95 96 96 Oximetry Medical Decision Making - Medical Decision Making I did discuss 5 the patient and his caregiver also with Dr. Daiana encarnacion. Patient will be admitted with cardiology consultation also urology consultation due to the hematuria I did discuss the case with Dr. Sr who was in the emergency department. Was pt. sent in by a medical professional or institution (, PA, MIXED ANIMAL VETERINARIAN, urgent care, hospital, or [facility]...) When possible be specific @ -No Did you speak to anyone other than the patient for history (EMS, parent, family, police, friend...)? What history was obtained from this source @ -Paramedics upon arrival and caregiver Did you review nursing and triage notes (agree or disagree)? Why? @ -I reviewed and agree with nursing and triage notes Were old charts reviewed (outside hosp., previous admission, EMS record, old EKG, old radiological studies, urgent care reports/EKG's, [facility] records)? Report findings @ -Old charts were reviewed Differential Diagnosis (chest pain, altered mental status, abdominal pain women, abdominal pain men, vaginal bleeding, weakness, fever, dyspnea, syncope, headache, dizziness, GI bleed, back pain, seizure, CVA, palpatations, mental health, musculoskeletal)? @ -Weakness, EKG interpreted by me (3pts min.). @ -As above EKG interpreted by me atrial fibrillation with rapid ventricular response rate of 130 QRS duration 76 QT/QTc 292/[address]-T wave changes seen X-rays interpreted by me (1pt min.). @ -Increased pulmonary vascular markings some haziness this was interpreted by me CT interpreted by me (1pt min.). @ -None done U/S interpreted by me (1pt. min.). @ -None done What testing was considered but not performed or refused? (CT, X-rays, U/S, labs)? Why? @ -None What meds were considered but not given or refused? Why? @ -None Did you discuss the management of the patient with other professionals (professionals i.e. , PA, MIXED ANIMAL VETERINARIAN, lab, RT, psych nurse, social psychologist, skein washer, teacher, court collections officer, case making machine operator)? Give summary @ -No Was smoking cessation discussed for >3mins.? @ -No Was critical care preformed (if so, how long)? @ -39 minutes Were there social determinants of health that impacted care today? How? (Homelessness, low income, unemployed, alcoholism, drug addiction, transportation, low edu. Level, literacy, decrease access to med. care, fci, rehab)? @ -No Was there de-escalation of care discussed even if they declined (Discuss DNR or withdrawal of care, Hospice)? DNR status @ -No What co-morbidities impacted this encounter? (DM, HTN, Smoking, COPD, CAD, Cancer, CVA, ARF, Chemo, Hep., AIDS, mental health diagnosis, sleep apnea, morbid obesity)? @ -History of atrial fibrillation, history of bladder cancer] Was patient admitted / discharged? Hospital course, mention meds given and route, prescriptions, significant lab abnormalities, going to OR and other pertinent info. @ -Hospital course patient was admitted to the hospital for cardiology consultation and urology consultation Undiagnosed new problem with uncertain prognosis? @ -No Drug Therapy requiring intensive monitoring for toxicity (Heparin, Nitro, Insulin, Cardizem)? @ -No Were any procedures done? @ -No Diagnosis/symptom? @ --Atrial fibrillation, hematuria, bladder cancer, hypotensive episode, elevated BNP Acute, or Chronic, or Acute on Chronic? @ -Acute Uncomplicated (without systemic symptoms) or Complicated (systemic symptoms)? @ -Complicated Side effects of treatment? @ -No Exacerbation, Progression, or Severe Exacerbation? @ -Exacerbation Poses a threat to life or bodily function? How? (Chest pain, [place], [place], pneumonia, PE, COPD, DKA, ARF, appy, cholecystitis, CVA, Diverticulitis, Homicidal, Suicidal, threat to staff... and all critical care pts) @ -Potential, atrial fibrillation with rapid ventricular response, elevated BNP, hematuria - Lab Data Result diagrams: 07/01/23 15:22 07/01/23 15:22 Lab Results 07/01/23 07/01/23 07/01/23 Range/Units 15:22 15:22 15:22 WBC (3.8-10.6) k/uL RBC (4.30-5.90) m/uL Hgb (13.0-17.5) gm/dL Hct (39.0-53.0) % MCV (80.0-100.0) fL MCH (25.0-35.0) pg MCHC (31.0-37.0) g/dL RDW (11.5-15.5) % Plt Count (150-450) k/uL MPV Neutrophils % % Lymphocytes % % Monocytes % % Eosinophils % % Basophils % % Neutrophils # (1.3-7.7) k/uL Lymphocytes # (1.0-4.8) k/uL Monocytes # (0-1.0) k/uL Eosinophils # (0-0.7) k/uL Basophils # (0-0.2) k/uL Hypochromasia Microcytosis PT (10.0-12.5) sec INR (<1.2) APTT (22.0-30.0) sec Sodium 135 L (137-145) mmol/L Potassium 4.9 (3.5-5.1) mmol/L Chloride 104 (98-107) mmol/L Carbon Dioxide 17 L (22-30) mmol/L Anion Gap 14 mmol/L BUN 20 (9-20) mg/dL Creatinine 0.93 (0.66-1.25) mg/dL Est GFR (CKD-EPI)AfAm >90 (>60 ml/min/1.73 sqM) Est GFR (CKD-EPI)NonAf 88 (>60 ml/min/1.73 sqM) Glucose 109 H (74-99) mg/dL Plasma Lactic Acid Milad 1.6 (0.7-2.0) mmol/L Calcium 9.0 (8.4-10.2) mg/dL Magnesium 1.8 (1.6-2.3) mg/dL Total Bilirubin 0.9 (0.2-1.3) mg/dL AST 29 (17-59) U/L ALT 16 (4-49) U/L Alkaline Phosphatase 104 (38-126) U/L Creatine Kinase 32 L (55-170) U/L Troponin I (0.000-0.034) ng/mL NT-Pro-B Natriuret Pep 2000 pg/mL Total Protein 6.6 (6.3-8.2) g/dL Albumin 3.3 L (3.5-5.0) g/dL Urine Color Red Urine Appearance Cloudy (Clear) Urine RBC >182 H (0-5) /hpf Urine WBC 9 H (0-5) /hpf Urine Bacteria Many H (None) /hpf Urine Mucus Few H (None) /hpf 07/01/23 07/01/23 07/01/23 Range/Units 15:22 15:22 15:22 WBC 13.0 H (3.8-10.6) k/uL RBC 4.04 L (4.30-5.90) m/uL Hgb 9.7 L (13.0-17.5) gm/dL Hct 30.9 L (39.0-53.0) % MCV 76.4 L (80.0-100.0) fL MCH 23.9 L (25.0-35.0) pg MCHC 31.3 (31.0-37.0) g/dL RDW 14.9 (11.5-15.5) % Plt Count 478 H (150-450) k/uL MPV 8.4 Neutrophils % 76 % Lymphocytes % 10 % Monocytes % 9 % Eosinophils % 2 % Basophils % 0 % Neutrophils # 9.9 H (1.3-7.7) k/uL Lymphocytes # 1.3 (1.0-4.8) k/uL Monocytes # 1.2 H (0-1.0) k/uL Eosinophils # 0.3 (0-0.7) k/uL Basophils # 0.0 (0-0.2) k/uL Hypochromasia Slight Microcytosis Slight PT 11.0 (10.0-12.5) sec INR 1.0 (<1.2) APTT 31.6 H (22.0-30.0) sec Sodium (137-145) mmol/L Potassium (3.5-5.1) mmol/L Chloride (98-107) mmol/L Carbon Dioxide (22-30) mmol/L Anion Gap mmol/L BUN (9-20) mg/dL Creatinine (0.66-1.25) mg/dL Est GFR (CKD-EPI)AfAm (>60 ml/min/1.73 sqM) Est GFR (CKD-EPI)NonAf (>60 ml/min/1.73 sqM) Glucose (74-99) mg/dL Plasma Lactic Acid Milad (0.7-2.0) mmol/L Calcium (8.4-10.2) mg/dL Magnesium (1.6-2.3) mg/dL Total Bilirubin (0.2-1.3) mg/dL AST (17-59) U/L ALT (4-49) U/L Alkaline Phosphatase (38-126) U/L Creatine Kinase (55-170) U/L Troponin I <0.012 (0.000-0.034) ng/mL NT-Pro-B Natriuret Pep pg/mL Total Protein (6.3-8.2) g/dL Albumin (3.5-5.0) g/dL Urine Color Urine Appearance (Clear) Urine RBC (0-5) /hpf Urine WBC (0-5) /hpf Urine Bacteria (None) /hpf Urine Mucus (None) /hpf - EKG Data -: EKG Interpreted by Me EKG Comments: EKG interpreted by me atrial fibrillation with a response rate of 130 QRS duration 76 QT/QTc 292/369 - Radiology Data Interpreted by me: Chest x-ray interpreted by me evidence of increased pulmonary markings Critical Care Time Critical Care Time: Yes Total Critical Care Time: 39 Disposition Clinical Impression: Rapid atrial fibrillation, Weakness, Hypotensive episode, Hematuria, Bladder cancer, Atrial fibrillation with RVR Disposition: ADMITTED IP TO THIS [facility] Condition: Fair Referrals: None,Stated [REFERRING] - 1-2 days Time of Disposition: 20:00 Decision Date: 07/01/23 Decision Time: 20:00
[2023-07-01] MEDS: SODIUM CHLORIDE 0.9% 500 ML 500 ML IV STA (15:41)
[2023-07-01] MEDS: DILTIAZEM DRIP BOLUS FROM BAG 1 MG SOLN IV ONE (15:41)
[2023-07-01] MEDS: SODIUM CHLORIDE 0.9% 1,000 ML IV STA (15:41)
[2023-07-01] MEDS: DILTIAZEM 125 MG in SODIUM CHLORIDE 0.9% 100 ML IV SCH (15:43)
--- NOTE | 2023-07-01 16:05 | XR ---
EXAMINATION TYPE: XR chest 1V portable DATE OF EXAM: 07/01/2023 3:59 PM CLINICAL INDICATION:Male, 63 years old with history of Rapid atrial fibrillation; [facility] COMPARISON: Chest radiographs from 06/25/2023 TECHNIQUE: XR chest 1V portable Frontal view of the chest. FINDINGS: Lungs/Pleura: Hazy bilateral airspace opacities are identified, increased when compared to the prior exam. The lungs are also mildly hyperexpanded. Pulmonary vascularity: Unremarkable. Heart/mediastinum: Cardiomediastinal silhouette is unremarkable. Musculoskeletal: No acute osseous pathology. IMPRESSION: Emphysematous changes of the lungs with hazy overlying airspace opacities, may represent superimposed infectious/inflammatory process.
[2023-07-01 16:06] LABS: Basophils % (A) 0 %; Eosinophils # (A) 0.3 k/uL (0-0.7); Eosinophils % (A) 2 %; HCT 30.9 % (39.0-53.0); HGB 9.7 gm/dL (13.0-17.5); Hypochromasia Slight; Lymphocytes # (A) 1.3 k/uL (1.0-4.8); Lymphocytes % (A) 10 %; MCH 23.9 pg (25.0-35.0); MCHC 31.3 g/dL (31.0-37.0); MCV 76.4 fL (80.0-100.0); Mean Platelet Volume 8.4; Microcytosis Slight; Monocytes # (A) 1.2 k/uL (0-1.0); Monocytes % (A) 9 %; Neutrophils # (A) 9.9 k/uL (1.3-7.7); Neutrophils % (A) 76 %; Platelet Count 478 k/uL (150-450); RBC 4.04 m/uL (4.30-5.90); RDW 14.9 % (11.5-15.5)
[2023-07-01 16:20] LABS: ALT 16 U/L (4-49); African American GFR (CKD) >90 (>60 ml/min/1.73 sqM); Albumin 3.3 g/dL (3.5-5.0); Anion Gap 14 mmol/L; Blood Urea Nitrogen 20 mg/dL (9-20); Carbon Dioxide 17 mmol/L (22-30); Chloride 104 mmol/L (98-107); Creatine Kinase 32 U/L (55-170); Glucose 109 mg/dL (74-99); Non-African American GFR(CKD) 88 (>60 ml/min/1.73 sqM); Sodium 135 mmol/L (137-145); Total Bilirubin 0.9 mg/dL (0.2-1.3); Total Protein 6.6 g/dL (6.3-8.2)
[2023-07-01 16:22] LABS: AST 29 U/L (17-59); Alkaline Phosphatase 104 U/L (38-126); Magnesium 1.8 mg/dL (1.6-2.3); Partial Thromboplastin Time 31.6 sec (22.0-30.0); Potassium 4.9 mmol/L (3.5-5.1)
[2023-07-01 16:28] LABS: NT-Pro-B-Type Natriuretic Pept 2000 pg/mL
[2023-07-01 18:08] LABS: Appearance,Urine Cloudy (Clear); Color,Urine Red
[2023-07-01 18:20] LABS: Bacteria,Urine Many /hpf; Mucus,Urine Few /hpf; RBC,Urine >182 /hpf (0-5); WBC,Urine 9 /hpf (0-5)
[2023-07-01] MEDS ORDERED: NALOXONE 0.4 MG/ML 1 ML VIAL IV PRN (20:29)
[2023-07-01] MEDS ORDERED: ACETAMINOPHEN TAB 325 MG TAB PO PRN (20:29)
[2023-07-01] MEDS ORDERED: IPRATROPIUM-ALBUTEROL 3 ML NEB INHALATION PRN (20:32)
[2023-07-01] MEDS ORDERED: SYMBICORT 160-4.5 MCG INHALER INHALATION PRN (20:32)
[2023-07-01] MEDS ORDERED: ONDANSETRON 4 MG TAB PO PRN (20:32)
[2023-07-01] MEDS ORDERED: PSYLLIUM HUSK 100% 6 GM PACKET PO PRN (20:32)
--- NOTE | 2023-07-01 20:46 | P.GSCN ---
History of Present Illness Consult date: 07/01/23 History of present illness: 63-year-old gentleman with metastatic bladder cancer. He is known to resected a muscle invasive tumor and the workup identified metastases. He is currently undergoing immunotherapy. The patient can give very little history. He does have a left nephrostomy to due to left ureteral obstruction. He comes in with dizziness as well as hematuria. He has no discomfort with urination. He still has his bladder. Left nephrostomy tube is clear urine. Review of Systems ROS unobtainable: due to mental status 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 Past Anesthesia/Blood Transfusion Reactions: No Reported Reaction Past Psychological History: No Psychological Hx Reported Smoking Status: Former smoker Past Alcohol Use History: Occasional Past Drug Use History: None Reported - Past Family History Father Family Medical History: Cancer Additional Family Medical History / Comment(s): lung cancer, smoker Medications and Allergies Home Medications Medication Instructions Recorded Confirmed Type Ondansetron [Zofran] 4 mg PO Q4H PRN 05/25/23 07/01/23 History amLODIPine [Norvasc] 5 mg PO DAILY@0900 05/25/23 07/01/23 History HYDROcodone/APAP 10-325MG [[place] 0.5 - 1 tab PO Q4HR PRN 06/06/23 07/01/23 History 10-325] Psyllium Husk (with Sugar) 6 gm PO DAILY PRN 06/06/23 07/01/23 History [Metamucil Powder] Apixaban [Eliquis] 2.5 mg PO BID@0900,2100 07/01/23 07/01/23 History Budesonide/Formoterol Fumarate 2 puff INHALATION RT-BID PRN 07/01/23 07/01/23 History [Symbicort 160-4.5 Mcg Inhaler] Ipratropium-Albuterol Nebulize 3 ml INHALATION RT-QID PRN 07/01/23 07/01/23 History [Duoneb 0.5 mg-3 mg/3 ml Soln] Metoprolol Tartrate [Lopressor] 12.5 mg PO BID@0900,2100 07/01/23 07/01/23 History Allergies Allergy/AdvReac Type Severity Reaction Status Date / Time Iodinated Contrast Media Allergy Neck Verified 07/01/23 20:02 swelling Surgical - Exam Vital Signs Temp Pulse Resp BP Pulse Ox 97.6 F 97 20 71/43 98 07/01/23 14:59 07/01/23 14:59 07/01/23 14:59 07/01/23 14:59 07/01/23 14:59 - General well developed, well nourished, no distress - Eyes normal ocular movement, no icteric - ENT no hearing loss, no congestion - Neck no masses, trachea midline - Respiratory normal respiratory effort, clear to auscultation - Abdomen Left nephrostomy tube. Clear urine. Abdomen: soft, non tender, no guarding, no rigid, no rebound - Integumentary no rash, no abnormal pigmentation - Neurologic no disoriented, no combative - Psychiatric oriented to time, oriented to person, oriented to place, speech is normal, memory intact Results - Labs 07/01/23 15:22 07/01/23 15:22 Abnormal Lab Results - Last 24 Hours (Table) 07/01/23 07/01/23 07/01/23 Range/Units 15:22 15:22 15:22 WBC 13.0 H (3.8-10.6) k/uL RBC 4.04 L (4.30-5.90) m/uL Hgb 9.7 L (13.0-17.5) gm/dL Hct 30.9 L (39.0-53.0) % MCV 76.4 L (80.0-100.0) fL MCH 23.9 L (25.0-35.0) pg Plt Count 478 H (150-450) k/uL Neutrophils # 9.9 H (1.3-7.7) k/uL Monocytes # 1.2 H (0-1.0) k/uL APTT (22.0-30.0) sec Sodium 135 L (137-145) mmol/L Carbon Dioxide 17 L (22-30) mmol/L Glucose 109 H (74-99) mg/dL Creatine Kinase 32 L (55-170) U/L Albumin 3.3 L (3.5-5.0) g/dL Urine RBC >182 H (0-5) /hpf Urine WBC 9 H (0-5) /hpf Urine Bacteria Many H (None) /hpf Urine Mucus Few H (None) /hpf 07/01/23 Range/Units 15:22 WBC (3.8-10.6) k/uL RBC (4.30-5.90) m/uL Hgb (13.0-17.5) gm/dL Hct (39.0-53.0) % MCV (80.0-100.0) fL MCH (25.0-35.0) pg Plt Count (150-450) k/uL Neutrophils # (1.3-7.7) k/uL Monocytes # (0-1.0) k/uL APTT 31.6 H (22.0-30.0) sec Sodium (137-145) mmol/L Carbon Dioxide (22-30) mmol/L Glucose (74-99) mg/dL Creatine Kinase (55-170) U/L Albumin (3.5-5.0) g/dL Urine RBC (0-5) /hpf Urine WBC (0-5) /hpf Urine Bacteria (None) /hpf Urine Mucus (None) /hpf Diabetes panel 07/01/23 Range/Units 15:22 Sodium 135 L (137-145) mmol/L Potassium 4.9 (3.5-5.1) mmol/L Chloride 104 (98-107) mmol/L Carbon Dioxide 17 L (22-30) mmol/L BUN 20 (9-20) mg/dL Creatinine 0.93 (0.66-1.25) mg/dL Glucose 109 H (74-99) mg/dL Calcium 9.0 (8.4-10.2) mg/dL AST 29 (17-59) U/L ALT 16 (4-49) U/L Alkaline Phosphatase 104 (38-126) U/L Total Protein 6.6 (6.3-8.2) g/dL Albumin 3.3 L (3.5-5.0) g/dL Calcium panel 07/01/23 Range/Units 15:22 Calcium 9.0 (8.4-10.2) mg/dL Albumin 3.3 L (3.5-5.0) g/dL Pituitary panel 07/01/23 Range/Units 15:22 Sodium 135 L (137-145) mmol/L Potassium 4.9 (3.5-5.1) mmol/L Chloride 104 (98-107) mmol/L Carbon Dioxide 17 L (22-30) mmol/L BUN 20 (9-20) mg/dL Creatinine 0.93 (0.66-1.25) mg/dL Glucose 109 H (74-99) mg/dL Calcium 9.0 (8.4-10.2) mg/dL Adrenal panel 07/01/23 Range/Units 15:22 Sodium 135 L (137-145) mmol/L Potassium 4.9 (3.5-5.1) mmol/L Chloride 104 (98-107) mmol/L Carbon Dioxide 17 L (22-30) mmol/L BUN 20 (9-20) mg/dL Creatinine 0.93 (0.66-1.25) mg/dL Glucose 109 H (74-99) mg/dL Calcium 9.0 (8.4-10.2) mg/dL Total Bilirubin 0.9 (0.2-1.3) mg/dL AST 29 (17-59) U/L ALT 16 (4-49) U/L Alkaline Phosphatase 104 (38-126) U/L Total Protein 6.6 (6.3-8.2) g/dL Albumin 3.3 L (3.5-5.0) g/dL Assessment and Plan Assessment: Impression: Metastatic, muscle invasive bladder cancer on immunotherapy. Hematuria secondary to bladder cancer. Atrial fibrillation. Hydronephrosis secondary to cancer. Recommendations: From a urologic standpoint the bleeding is not significant that's that intervention is required at this point in time.
[2023-07-01] MEDS: METOPROLOL TARTRATE 12.5 MG TAB PO SCH (21:53)
[2023-07-01] MEDS: APIXABAN 2.5 MG TABLET PO SCH (21:53)
[2023-07-01] MEDS: FUROSEMIDE 10 MG/ML 4 ML VIAL IV STA (21:55)
[2023-07-02] MEDS: HYDROcodone/APAP 10-325MG 1 EACH TAB PO PRN (06:12)
[2023-07-02] MEDS: amLODIPine 5 MG TAB PO SCH (09:20)
[2023-07-02] MEDS: DILTIAZEM DRIP BOLUS FROM BAG 1 MG SOLN IV ONE (10:37)
[2023-07-02 11:18] LABS: African American GFR (CKD) >90 (>60 ml/min/1.73 sqM); Anion Gap 8 mmol/L; Blood Urea Nitrogen 17 mg/dL (9-20); Calcium 8.9 mg/dL (8.4-10.2); Carbon Dioxide 23 mmol/L (22-30); Chloride 106 mmol/L (98-107); Glucose 110 mg/dL (74-99); Non-African American GFR(CKD) >90 (>60 ml/min/1.73 sqM); Potassium 4.3 mmol/L (3.5-5.1); Sodium 137 mmol/L (137-145)
[2023-07-02 11:23] LABS: Basophils % (A) 0 %; Eosinophils # (A) 0.2 k/uL (0-0.7); Eosinophils % (A) 2 %; HGB 9.1 gm/dL (13.0-17.5); Hypochromasia Slight; Lymphocytes # (A) 0.9 k/uL (1.0-4.8); Lymphocytes % (A) 8 %; MCH 23.5 pg (25.0-35.0); MCHC 31.3 g/dL (31.0-37.0); MCV 75.1 fL (80.0-100.0); Mean Platelet Volume 8.1; Microcytosis Slight; Monocytes % (A) 8 %; Neutrophils # (A) 9.1 k/uL (1.3-7.7); Neutrophils % (A) 80 %; Platelet Count 472 k/uL (150-450); RBC 3.86 m/uL (4.30-5.90); RDW 14.8 % (11.5-15.5); WBC 11.4 k/uL (3.8-10.6)
--- NOTE | 2023-07-02 12:44 | P.HPIM ---
History of Present Illness H&P Date: 07/02/23 Chief Complaint: Lightheadedness weakness * 63-year-old gentleman with past medical history significant for atrial fibrillation, COPD, history of bladder cancer s/p nephrostomy tube left side, getting immunotherapy at outside hospital, presents to the emergency department with complaints of generalized weakness, episode of dizziness ongoing for the last several days. Patient has also noticed blood in his urine prior to presentation patient does have evidence of nephrostomy tube however no blood is noted in that. Patient states for the last few days patient has been having chills and night sweats. At the time of presentation in ER patient was noted to be hypotensive with systolic blood pressure 95.69 and ranging in 80s workup initiated in ER included CBC which showed WBC count of 13, hemoglobin 9.7 platelet count of 478 serum chemistry showed sodium 135 potassium 4.9 carbon dioxide 17 BUN 20 creatinine 0.93 lactate of 1.6 magnesium 1.8 urinalysis obtained showed red color urine excessive RBC WBC was noted. * While in ER patient was given fluid bolus, and was started on IV Cardizem drip with consultation to be obtained from cardiology as well as urology for further management REVIEW OF SYSTEMS: Dizziness, hematuria, chills CONSTITUTIONAL: Dizziness, hematuria, chills HEENT: No recent visual problems or hearing problems. Denied any sore throat. CARDIOVASCULAR: No chest pain, orthopnea, PND, no palpitations, no syncope. PULMONARY: No shortness of breath, no cough, no hemoptysis. GASTROINTESTINAL: No diarrhea, no nausea, no vomiting, no abdominal pain. NEUROLOGICAL: No headaches, no weakness, no numbness. HEMATOLOGICAL: Denies any bleeding or petechiae. GENITOURINARY: Denies any burning micturition, frequency, or urgency. MUSCULOSKELETAL/RHEUMATOLOGICAL: Denies any joint pain, swelling, or any muscle pain. ENDOCRINE: Denies any polyuria or polydipsia. PHYSICAL EXAMINATION: GENERAL: The patient is alert and oriented x3, ill appearance HEENT: Pupils are round and equally reacting to light. EOMI. CARDIOVASCULAR: S1 and S2 present. Irregular, tachycardia noted PULMONARY: Chest is clear to auscultation, no wheezing or crackles. ABDOMEN: Soft, nontender, nondistended, normoactive bowel sounds. Nephrostomy tube in place left kidney MUSCULOSKELETAL: No joint swelling or deformity. EXTREMITIES: No cyanosis, clubbing, or pedal edema. NEUROLOGICAL: Gross neurological examination did not reveal any focal deficits. 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 Past Anesthesia/Blood Transfusion Reactions: No Reported Reaction Past Psychological History: No Psychological Hx Reported Smoking Status: Former smoker Past Alcohol Use History: Occasional Past Drug Use History: None Reported - Past Family History Father Family Medical History: Cancer Additional Family Medical History / Comment(s): lung cancer, smoker Medications and Allergies Home Medications Medication Instructions Recorded Confirmed Type Ondansetron [Zofran] 4 mg PO Q4H PRN 05/25/23 07/01/23 History amLODIPine [Norvasc] 5 mg PO DAILY@0900 05/25/23 07/01/23 History HYDROcodone/APAP 10-325MG [[place] 0.5 - 1 tab PO Q4HR PRN 06/06/23 07/01/23 History 10-325] Psyllium Husk (with Sugar) 6 gm PO DAILY PRN 06/06/23 07/01/23 History [Metamucil Powder] Apixaban [Eliquis] 2.5 mg PO BID@0900,2100 07/01/23 07/01/23 History Budesonide/Formoterol Fumarate 2 puff INHALATION RT-BID PRN 07/01/23 07/01/23 History [Symbicort 160-4.5 Mcg Inhaler] Ipratropium-Albuterol Nebulize 3 ml INHALATION RT-QID PRN 07/01/23 07/01/23 History [Duoneb 0.5 mg-3 mg/3 ml Soln] Metoprolol Tartrate [Lopressor] 12.5 mg PO BID@0900,2100 07/01/23 07/01/23 History Allergies Allergy/AdvReac Type Severity Reaction Status Date / Time Iodinated Contrast Media Allergy Neck Verified 07/01/23 20:02 swelling Physical Exam Vitals: Vital Signs Temp Pulse Pulse Resp BP BP Pulse Ox 07/02/23 09:09 100 18 104/67 97 07/02/23 06:12 114 H 16 97/80 95 07/02/23 03:00 113 H 18 110/72 98 07/02/23 02:00 112 H 22 99/82 92 L 07/02/23 01:00 79 20 98/69 96 07/02/23 00:00 114 H 19 107/72 96 07/01/23 23:00 93 13 98/77 96 07/01/23 22:00 135 H 22 104/66 96 07/01/23 21:00 120 H 11 L 129/62 96 07/01/23 20:20 108 H 19 101/78 95 07/01/23 20:00 126 H 22 104/78 97 07/01/23 19:00 117 H 19 114/84 96 07/01/23 18:30 120 H 15 104/81 96 07/01/23 18:00 128 H 17 106/79 96 07/01/23 17:30 135 H 20 96/68 95 07/01/23 17:00 115 H 19 123/84 97 07/01/23 16:38 104 H 18 106/91 07/01/23 16:30 103 H 19 96/72 98 07/01/23 16:00 103 H 18 90/71 98 07/01/23 15:30 111 H 13 109/83 98 07/01/23 14:59 97.6 F 97 20 71/43 98 Results CBC & Chem 7: 07/02/23 10:02 07/02/23 10:02 Labs: Abnormal Lab Results - Last 24 Hours (Table) 07/01/23 07/01/23 07/01/23 Range/Units 15:22 15:22 15:22 WBC 13.0 H (3.8-10.6) k/uL RBC 4.04 L (4.30-5.90) m/uL Hgb 9.7 L (13.0-17.5) gm/dL Hct 30.9 L (39.0-53.0) % MCV 76.4 L (80.0-100.0) fL MCH 23.9 L (25.0-35.0) pg Plt Count 478 H (150-450) k/uL Neutrophils # 9.9 H (1.3-7.7) k/uL Monocytes # 1.2 H (0-1.0) k/uL APTT (22.0-30.0) sec Sodium 135 L (137-145) mmol/L Carbon Dioxide 17 L (22-30) mmol/L Glucose 109 H (74-99) mg/dL Creatine Kinase 32 L (55-170) U/L Albumin 3.3 L (3.5-5.0) g/dL Urine RBC >182 H (0-5) /hpf Urine WBC 9 H (0-5) /hpf Urine Bacteria Many H (None) /hpf Urine Mucus Few H (None) /hpf 07/01/23 Range/Units 15:22 WBC (3.8-10.6) k/uL RBC (4.30-5.90) m/uL Hgb (13.0-17.5) gm/dL Hct (39.0-53.0) % MCV (80.0-100.0) fL MCH (25.0-35.0) pg Plt Count (150-450) k/uL Neutrophils # (1.3-7.7) k/uL Monocytes # (0-1.0) k/uL APTT 31.6 H (22.0-30.0) sec Sodium (137-145) mmol/L Carbon Dioxide (22-30) mmol/L Glucose (74-99) mg/dL Creatine Kinase (55-170) U/L Albumin (3.5-5.0) g/dL Urine RBC (0-5) /hpf Urine WBC (0-5) /hpf Urine Bacteria (None) /hpf Urine Mucus (None) /hpf Assessment and Plan Assessment: Assessment and plan * Persistent atrial fibrillation with rapid ventricular response * Stage IV bladder cancer with hematuria * Urinary tract infection * History of COPD * S/p nephrostomy tube placement present on admission left kidney for left-sided hydronephrosis * Iron deficiency anemia * History of anxiety * In regards to atrial fibrillation with rapid monitor response continue rate control medications, continue patient on Cardizem drip, cardiology consulted continue metoprolol will wean off drip as tolerated * In regards to urinary tract infection, urine cultures ordered continue patient on IV Rocephin to complete 5-day course * In regards to hematuria, continue to monitor, Eliquis resumed, if hematuria worsens Eliquis will be discontinued, urology consulted * In regards to history of COPD continue patient on as needed breathing treatment continue DuoNebs and Symbicort * In regards to iron deficiency anemia continue to monitor H&H * CODE STATUS is full code Time with Patient: Greater than 30
[2023-07-02] MEDS: METOPROLOL TARTRATE 25 MG TAB PO SCH (16:11)
[2023-07-02] MEDS: MELATONIN 5 MG TABLET PO SCH (20:30)
--- NOTE | 2023-07-02 22:09 | CONS ---
CONSULTATION Jones Jimenez is a 63-year-old gentleman with a known history of paroxysmal atrial fibrillation, who sees Dr. Lentz in the outpatient setting. He has a history of bladder cancer and has seen a urologist. Also has a nephrostomy tube. Apparently, he is seeing some blood when he urinates, but hemoglobin has fairly been in the stable range of 9.7. He is here having come in last evening with complaints of having had a history of bladder cancer, on immunotherapy, at [facility] with history of paroxysmal atrial fib, COPD, and also some renal failure and nephrostomy tube. For the last 2 nights, he has been having some chills, hot flashes, generalized weakness, lightheadedness. He was found to be in atrial fibrillation with moderately rapid ventricular rate and I have been seeing him in this regard. He is feeling exhausted, but denies any chest pain or palpitations at this time. He has a friend who is with him and she gave most of the history. He currently takes amlodipine 5 mg daily for hypertension, Eliquis 2.5 mg b.i.d., and also takes metoprolol tartrate 12.5 mg b.i.d. He has no chest pain at the time of my evaluation. PAST MEDICAL HISTORY: 1. Bladder cancer. 2. Renal failure of unclear etiology. 3. Atrial fibrillation which is paroxysmal in nature, on Eliquis 2.5 mg daily. The patient is status post bladder tumor removal by urethral approach. He is a former smoker. PHYSICAL EXAMINATION: VITAL SIGNS: Blood pressure 104/70; pulse rate about 110, irregularly irregular. HEENT: Unremarkable. Fundus was not examined. NECK: Supple. There is JVD of 1 cm. No carotid bruit. HEART: Reveals S1 and S2 with tachycardia, short systolic murmur, irregularly irregular rhythm. LUNGS: Reveal diminished air entry. ABDOMEN: Soft. LOWER EXTREMITIES: Reveal diminished pulses. CENTRAL NERVOUS SYSTEM: Normal. IMPRESSION: 1. Atrial fibrillation with rapid ventricular rate. 2. Bladder cancer. 3. History of some chronic kidney disease as well and has had a nephrostomy tube placed as well. His renal function has since normalized. RECOMMENDATIONS: I am recommending metoprolol tartrate 25 mg t.i.d. Check a CBC, place him on a Cardizem drip at 7.5 mg after giving a bolus of 5; and after we achieve rate control, based on clinical course, we will make further recommendations. The patient is currently on Eliquis 2.5 mg b.i.d., which we will continue. BP control is good. MMODL / IJN: [id number] /
--- NOTE | 2023-07-03 12:15 | P.PN ---
Subjective Progress Note Date: 07/03/23 * 63-year-old gentleman with past medical history significant for atrial fibrillation, COPD, history of bladder cancer s/p nephrostomy tube left side, getting immunotherapy at outside hospital, presents to the emergency department with complaints of generalized weakness, episode of dizziness ongoing for the last several days. Patient has also noticed blood in his urine prior to presentation patient does have evidence of nephrostomy tube however no blood is noted in that. Patient states for the last few days patient has been having chills and night sweats. At the time of presentation in ER patient was noted to be hypotensive with systolic blood pressure 95.69 and ranging in 80s workup initiated in ER included CBC which showed WBC count of 13, hemoglobin 9.7 platelet count of 478 serum chemistry showed sodium 135 potassium 4.9 carbon dioxide 17 BUN 20 creatinine 0.93 lactate of 1.6 magnesium 1.8 urinalysis obtained showed red color urine excessive RBC WBC was noted. * While in ER patient was given fluid bolus, and was started on IV Cardizem drip with consultation to be obtained from cardiology as well as urology for further management * 07/03/23: Patient seen and evaluated bedside. Blood work reviewed. Vitals reviewed heart rate ranging in 70s. Hematuria has resolved, patient states he feels better waiting for a room PHYSICAL EXAMINATION: GENERAL: The patient is alert and oriented x3, ill appearance HEENT: Pupils are round and equally reacting to light. EOMI. CARDIOVASCULAR: S1 and S2 present. Irregular, tachycardia noted PULMONARY: Chest is clear to auscultation, no wheezing or crackles. ABDOMEN: Soft, nontender, nondistended, normoactive bowel sounds. Nephrostomy tube in place left kidney MUSCULOSKELETAL: No joint swelling or deformity. EXTREMITIES: No cyanosis, clubbing, or pedal edema. NEUROLOGICAL: Gross neurological examination did not reveal any focal deficits. Assessment and plan * Persistent atrial fibrillation with rapid ventricular response * Stage IV bladder cancer with hematuria, metastatic muscle invasive bladder cancer * Urinary tract infection * History of COPD * S/p nephrostomy tube placement present on admission left kidney for left-sided hydronephrosis * Iron deficiency anemia * History of anxiety * In regards to atrial fibrillation with rapid monitor response continue rate control medications, Cardizem drip to be weaned off continue Lopressor 25 mg 3 times daily,, cardiology consulted * In regards to urinary tract infection, urine cultures ordered>> continue patient on IV Rocephin to complete 5-day course, day 2 of 5 * In regards to hematuria, continue to monitor, Eliquis resumed, if hematuria worsens Eliquis will be briefly held, urology consulted, appreciate recommendations * In regards to history of COPD continue patient on as needed breathing treatment continue DuoNebs and Symbicort * In regards to iron deficiency anemia continue to monitor H&H * CODE STATUS is full code Objective - Vital Signs Vital signs: Vital Signs Temp 97.6 F 07/01/23 14:59 Pulse 75 07/03/23 06:49 Resp 19 07/03/23 06:49 BP 101/70 07/03/23 06:49 Pulse Ox 97 07/03/23 06:49 FiO2 Intake & Output 07/02/23 07/03/23 07/03/23 18:59 06:59 18:59 Intake Total 235.916 Output Total 170 Balance 65.916 Weight 60.781 kg Intake: Intake, IV Titration 235.916 Amount Diltiazem 125 mg In 135.916 Sodium Chloride 0.9% 100 ml @ 5 MG/HR 5 mls/hr IV .Q24H [facility] Rx#:[id number] cefTRIAXone 1 gm In 100 Sodium Chloride 0.9% 50 ml @ 100 mls/hr IVPB Q24HR [facility] Rx#:[id number] Output: Urine 170 - Labs CBC & Chem 7: 07/02/23 10:02 07/02/23 10:02 Labs: Abnormal Lab Results - Last 24 Hours (Table) 07/02/23 07/02/23 07/02/23 Range/Units 10:02 10:02 10:02 WBC 11.4 H (3.8-10.6) k/uL RBC 3.86 L (4.30-5.90) m/uL Hgb 9.1 L (13.0-17.5) gm/dL Hct 29.0 L (39.0-53.0) % MCV 75.1 L (80.0-100.0) fL MCH 23.5 L (25.0-35.0) pg Plt Count 472 H (150-450) k/uL Neutrophils # 9.1 H (1.3-7.7) k/uL Lymphocytes # 0.9 L (1.0-4.8) k/uL Glucose 110 H (74-99) mg/dL Procalcitonin 0.16 H (0.02-0.09) ng/mL
[2023-07-03] MEDS: METOPROLOL TARTRATE 25 MG TAB PO SCH (20:03)
--- NOTE | 2023-07-04 06:35 | PN ---
PROGRESS NOTE Mr. Jimenez is a gentleman who came in with atrial fibrillation yesterday. He is known to have paroxysmal atrial fibrillation, sees Dr. Lentz. He is converted to sinus rhythm. I am recommending we decrease the metoprolol to 25 mg b.i.d. Cardizem drip was discontinued. Vital are stable. S1-S2 heard normally. Lungs are clear. Abdomen and lower extremity exam unchanged. The patient can be discharged today and follow up with Dr. Lentz as an outpatient in about a couple of weeks. MMODL / IJN: [id number] /
[2023-07-04 08:22] LABS: HCT 29.1 % (39.6-50.0); HGB 8.8 g/dL (13.0-17.0); MCHC 30.2 g/dL (32.0-37.0); Mean Platelet Volume 10.3 FL (9.5-12.2); NRBC Per 100 WBC 0 X 10*3/uL (0.00-0.01); Platelet Count 503 X 10*3/uL (140-440); RBC 3.83 X 10*6/uL (4.40-5.60); RDW 15.5 % (11.5-14.5); WBC 10.63 X 10*3/uL (4.50-10.00)
[2023-07-04 08:47] LABS: BUN/Creat Ratio 15.44 Ratio (12.00-20.00); Blood Urea Nitrogen 13.9 mg/dL (9.0-27.0); Calcium 9.1 mg/dL (8.7-10.3); Carbon Dioxide 23.4 mmol/L (21.6-31.8); Chloride 103 mmol/L (96-109); Glucose 93 mg/dL (70-110); Potassium 4.3 mmol/L (3.5-5.5); Sodium 138 mmol/L (135-145)
[2023-07-04] MEDS: METOPROLOL TARTRATE 25 MG TAB PO STA (09:45)
--- NOTE | 2023-07-04 11:13 | P.PN ---
Subjective HISTORY OF PRESENT ILLNESS: This is a 63-year-old male who follows in the office with Dr. Lentz. Patient is admitted to the hospital with A-fib with RVR. Yesterday the patient was maintaining sinus mechanism and was cleared for discharge home. However the patient has went back into A-fib with RVR. This morning he remains in atrial fibrillation with a heart rate around [id number]. He denies any chest pain or pressure. He denies any shortness of breath. PHYSICAL EXAM: VITAL SIGNS: Reviewed. GENERAL: Well-developed in no acute distress. NECK: Supple. No JVD or thyromegaly LUNGS: Respirations even and unlabored. Lungs essentially clear to auscultation bilaterally. HEART: Tachycardic. Irregular rate and rhythm. S1 and S2 heard. EXTREMITIES: Normal range of motion. No clubbing or cyanosis. Peripheral pulses intact. No lower extremity edema ASSESSMENT: Paroxysmal atrial fibrillation with RVR Hypertension History of metastatic bladder cancer with nephrostomy tube present PLAN: Discontinue amlodipine Increase metoprolol to 50 mg 2 times a day Continue telemetry monitoring Due to patient age, weight, and kidney function, the patient should be on Eliquis 5 mg twice a day. However he is on 2.5 mg twice a day on an outpatient basis. This may be due to his anemia and recent renal failure in May 2023. We will continue with 2.5 mg twice a day. This can be reevaluated on an outpatient basis. Patient may be discharged home this afternoon from a cardiac standpoint if his heart rates remain stable Nurse practitioner note has been reviewed by physician. Signing provider agrees with the documented findings, assessment, and plan of care documented by [employer] as a scribe. Objective - Vital Signs Vital signs: Vital Signs Temp 98.0 F 07/04/23 07:12 Pulse 77 07/04/23 07:12 Resp 13 07/04/23 07:12 BP 127/74 07/04/23 07:12 Pulse Ox 97 07/04/23 08:28 FiO2 Intake & Output 07/03/23 07/04/23 07/04/23 18:59 06:59 18:59 Intake Total 240 Balance 240 Weight 57.4 kg Intake: Oral 240 Other: Voiding Method Ileal Conduit (Left) Ileal Conduit (Left) # Voids 1 - Labs CBC & Chem 7: 07/04/23 06:05 07/04/23 06:05 Labs: Abnormal Lab Results - Last 24 Hours (Table) 07/04/23 Range/Units 06:05 WBC 10.63 H (4.50-10.00) X 10*3/uL RBC 3.83 L (4.40-5.60) X 10*6/uL Hgb 8.8 L (13.0-17.0) g/dL Hct 29.1 L (39.6-50.0) % MCV 76.0 L (80.0-97.0) FL MCH 23.0 L (27.0-32.0) pg MCHC 30.2 L (32.0-37.0) g/dL RDW 15.5 H (11.5-14.5) % Plt Count 503 H (140-440) X 10*3/uL Microbiology - Last 24 Hours (Table) 07/02/23 15:22 Urine Culture - Final Urine,Suprapubic
--- NOTE | 2023-07-04 11:24 | CDI ---
Documentation Clarification Form Date: 07/04/2023 10:16:12 AM From: Nanette Burgos RN CCDS Phone: [phone] Admit Date: 07/01/2023 08:30:00 PM Patient Name: Jones Jimenez Visit Number: [id number] Discharge Date: ATTENTION: The Clinical Documentation Specialists (CDI) and [facility] Coding Staff appreciate your assistance in clarifying documentation. Please respond to the clarification below the line at the bottom and electronically sign. The CDI & [facility] Coding staff will review the response and follow-up if needed. Please note: Queries are made part of the Legal Health Record. If you have any questions, please contact the author of this message via ITS. Dr. Margot Calixto MD UTI is documented 07/01, H&P and patient has urostomy. Additional clarification regarding the etiology of the UTI is requested. History/Risk Factors: 63-year-old male presents to the ED for generalized weakness, episode of dizziness and blood in his urine. Medical history Bladder cancer stage IV, Afib and copd. 07/01, H&P. Clinical Indicators: Urinalysis:06/30 Color red, appearance cloudy, Rbc >182, Wbc 9, Bacteria Many, Mucus Few Urine culture: 07/02 Final 10,000 49,000 apparent skin and or genital joe Lab results: 06/30 Wbc 13.0, Neutrophils 9.9 Treatment: 07/01 Ceftriaxone 1gm IVPB Q24H; Please clarify the etiology of the UTI, if known: [ ] Urostomy [ y ] UTI not related to urostomy [ ] Other condition, please specify [ ] Unable to determine (Template Last Revised: June 2020) MTDD
[2023-07-04 12:10] VITALS: BMI 16.7
--- NOTE | 2023-07-04 12:30 | P.PN ---
Subjective Progress Note Date: 07/04/23 * 63-year-old gentleman with past medical history significant for atrial fibrillation, COPD, history of bladder cancer s/p nephrostomy tube left side, getting immunotherapy at outside hospital, presents to the emergency department with complaints of generalized weakness, episode of dizziness ongoing for the last several days. Patient has also noticed blood in his urine prior to presentation patient does have evidence of nephrostomy tube however no blood is noted in that. Patient states for the last few days patient has been having chills and night sweats. At the time of presentation in ER patient was noted to be hypotensive with systolic blood pressure 95.69 and ranging in 80s workup initiated in ER included CBC which showed WBC count of 13, hemoglobin 9.7 platelet count of 478 serum chemistry showed sodium 135 potassium 4.9 carbon dioxide 17 BUN 20 creatinine 0.93 lactate of 1.6 magnesium 1.8 urinalysis obtained showed red color urine excessive RBC WBC was noted. * While in ER patient was given fluid bolus, and was started on IV Cardizem drip with consultation to be obtained from cardiology as well as urology for further management * 07/03/23: Patient seen and evaluated bedside. Blood work reviewed. Vitals reviewed heart rate ranging in 70s. Hematuria has resolved, patient states he feels better waiting for a room * 07/04/23: Patient seen and evaluated at bedside, patient went back into atrial fibrillation had paroxysmal tachycardia, cardiology following dose of metoprolol increased. Blood work reviewed WBC 10.6 trending down hemoglobin 8.8 platelet count 503 electrolytes reviewed no electrolyte abnormality potassium 4.3. Continue IV Rocephin day 3 PHYSICAL EXAMINATION: GENERAL: The patient is alert and oriented x3, ill appearance HEENT: Pupils are round and equally reacting to light. EOMI. CARDIOVASCULAR: S1 and S2 present. Irregular, tachycardia noted PULMONARY: Chest is clear to auscultation, no wheezing or crackles. ABDOMEN: Soft, nontender, nondistended, normoactive bowel sounds. Nephrostomy tube in place left kidney MUSCULOSKELETAL: No joint swelling or deformity. EXTREMITIES: No cyanosis, clubbing, or pedal edema. NEUROLOGICAL: Gross neurological examination did not reveal any focal deficits. Assessment and plan * Persistent atrial fibrillation with rapid ventricular response * Stage IV bladder cancer with hematuria, metastatic muscle invasive bladder cancer * Urinary tract infection * History of COPD * S/p nephrostomy tube placement present on admission left kidney for left-sided hydronephrosis * Iron deficiency anemia * History of anxiety * In regards to atrial fibrillation with rapid monitor response continue rate control medications, Cardizem drip weaned off continue Lopressor,, cardiology consulted * In regards to urinary tract infection, urine cultures ordered>> continue patient on IV Rocephin to complete 5-day course, day 3 of 5 * In regards to hematuria, continue to monitor, Eliquis resumed, if hematuria worsens Eliquis will be briefly held, urology consulted, appreciate recommendations * In regards to history of COPD continue patient on as needed breathing treatment continue DuoNebs and Symbicort * In regards to iron deficiency anemia continue to monitor H&H * CODE STATUS is full code Objective - Vital Signs Vital signs: Vital Signs Temp 98.0 F 07/04/23 07:12 Pulse 77 07/04/23 07:12 Resp 13 07/04/23 07:12 BP 127/74 07/04/23 07:12 Pulse Ox 97 07/04/23 08:28 FiO2 Intake & Output 07/03/23 07/04/23 07/04/23 18:59 06:59 18:59 Intake Total 240 Balance 240 Weight 57.4 kg Intake: Oral 240 Other: Voiding Method Ileal Conduit (Left) Ileal Conduit (Left) # Voids 1 - Labs CBC & Chem 7: 07/04/23 06:05 07/04/23 06:05 Labs: Abnormal Lab Results - Last 24 Hours (Table) 07/04/23 Range/Units 06:05 WBC 10.63 H (4.50-10.00) X 10*3/uL RBC 3.83 L (4.40-5.60) X 10*6/uL Hgb 8.8 L (13.0-17.0) g/dL Hct 29.1 L (39.6-50.0) % MCV 76.0 L (80.0-97.0) FL MCH 23.0 L (27.0-32.0) pg MCHC 30.2 L (32.0-37.0) g/dL RDW 15.5 H (11.5-14.5) % Plt Count 503 H (140-440) X 10*3/uL Microbiology - Last 24 Hours (Table) 07/02/23 15:22 Urine Culture - Final Urine,Suprapubic
[2023-07-04] MEDS: METOPROLOL TARTRATE 50 MG TAB PO SCH (20:10)
[2023-07-05] MEDS ORDERED: DILTIAZEM 125 MG in SODIUM CHLORIDE 0.9% 100 ML IV SCH ×2 (08:30→12:30)
[2023-07-05] MEDS: METOPROLOL TARTRATE 25 MG TAB PO STA (10:52)
[2023-07-05 11:42] LABS: BUN/Creat Ratio 18.12 Ratio (12.00-20.00); Blood Urea Nitrogen 14.5 mg/dL (9.0-27.0); Calcium 9.4 mg/dL (8.7-10.3); Carbon Dioxide 24.5 mmol/L (21.6-31.8); Chloride 102 mmol/L (96-109); Glucose 96 mg/dL (70-110); Magnesium 1.8 mg/dL (1.5-2.4); Potassium 4.7 mmol/L (3.5-5.5); Sodium 138 mmol/L (135-145)
[2023-07-05 12:11] LABS: HCT 30.7 % (39.6-50.0); HGB 9.1 g/dL (13.0-17.0); MCH 22.8 pg (27.0-32.0); MCHC 29.6 g/dL (32.0-37.0); MCV 76.8 FL (80.0-97.0); Mean Platelet Volume 10.6 FL (9.5-12.2); NRBC Per 100 WBC 0 X 10*3/uL (0.00-0.01); Platelet Count 587 X 10*3/uL (140-440); RDW 15.4 % (11.5-14.5); WBC 11.57 X 10*3/uL (4.50-10.00)
--- NOTE | 2023-07-05 12:27 | P.PN ---
Subjective Progress Note Date: 07/05/23 * 63-year-old gentleman with past medical history significant for atrial fibrillation, COPD, history of bladder cancer s/p nephrostomy tube left side, getting immunotherapy at outside hospital, presents to the emergency department with complaints of generalized weakness, episode of dizziness ongoing for the last several days. Patient has also noticed blood in his urine prior to presentation patient does have evidence of nephrostomy tube however no blood is noted in that. Patient states for the last few days patient has been having chills and night sweats. At the time of presentation in ER patient was noted to be hypotensive with systolic blood pressure 95.69 and ranging in 80s workup initiated in ER included CBC which showed WBC count of 13, hemoglobin 9.7 platelet count of 478 serum chemistry showed sodium 135 potassium 4.9 carbon dioxide 17 BUN 20 creatinine 0.93 lactate of 1.6 magnesium 1.8 urinalysis obtained showed red color urine excessive RBC WBC was noted. * While in ER patient was given fluid bolus, and was started on IV Cardizem drip with consultation to be obtained from cardiology as well as urology for further management * 07/03/23: Patient seen and evaluated bedside. Blood work reviewed. Vitals reviewed heart rate ranging in 70s. Hematuria has resolved, patient states he feels better waiting for a room * 07/04/23: Patient seen and evaluated at bedside, patient went back into atrial fibrillation had paroxysmal tachycardia, cardiology following dose of metoprolol increased. Blood work reviewed WBC 10.6 trending down hemoglobin 8.8 platelet count 503 electrolytes reviewed no electrolyte abnormality potassium 4.3. Continue IV Rocephin day 3 * 07/05/23: Patient transferred back to 3 . secondary to A-fib RVR and was started on Cardizem drip, patient to be monitored on telemetry continue patie nt on IV antibiotic on IV Rocephin day 4. Patient also on metoprolol 50 mg twice daily. Heart rate sustaining in 130s to 180s.>> Heart rate improved after oral meds additional dose of metoprolol 25 mg given, unfortunately nursing staff on 5 N. unable to give IV metoprolol. Patient to be transferred to [facility] and to remained atrial discharge. Follow-up on basic metabolic panel PHYSICAL EXAMINATION: GENERAL: The patient is alert and oriented x3, ill appearance HEENT: Pupils are round and equally reacting to light. EOMI. CARDIOVASCULAR: S1 and S2 present. Irregular, tachycardia noted PULMONARY: Chest is clear to auscultation, no wheezing or crackles. ABDOMEN: Soft, nontender, nondistended, normoactive bowel sounds. Nephrostomy tube in place left kidney MUSCULOSKELETAL: No joint swelling or deformity. EXTREMITIES: No cyanosis, clubbing, or pedal edema. NEUROLOGICAL: Gross neurological examination did not reveal any focal deficits. Assessment and plan * Persistent atrial fibrillation with rapid ventricular response * Stage IV bladder cancer with hematuria, metastatic muscle invasive bladder cancer * Urinary tract infection * History of COPD * S/p nephrostomy tube placement present on admission left kidney for left-sided hydronephrosis * Iron deficiency anemia * History of anxiety * In regards to atrial fibrillation with rapid monitor response continue rate control medications, Cardizem drip was weaned off, however progress noted tachycardia noted started back on Cardizem on 07/04 continue Lopressor,, cardiology consulted * In regards to urinary tract infection, urine cultures ordered>> continue patient on IV Rocephin to complete 5-day course, day 4 of 5 * In regards to hematuria, continue to monitor, Eliquis resumed, if hematuria worsens Eliquis will be briefly held, urology consulted, appreciate recommendations * In regards to history of COPD continue patient on as needed breathing treatment continue DuoNebs and Symbicort * In regards to iron deficiency anemia continue to monitor H&H * CODE STATUS is full code Objective - Vital Signs Vital signs: Vital Signs Temp 98.3 F 07/05/23 08:00 Pulse 66 07/05/23 08:00 Resp 19 07/05/23 08:00 BP 93/61 07/05/23 08:00 Pulse Ox 98 07/05/23 08:00 FiO2 Intake & Output 07/04/23 07/05/23 07/05/23 18:59 06:59 18:59 Intake Total 820 600 Output Total 600 Balance 820 0 Weight 57.4 kg Intake: Oral 820 600 Output: Urine 600 Other: Voiding Method Ileal Conduit (Left) Ileal Conduit (Left) # Voids 1 - Labs CBC & Chem 7: 07/05/23 07:20 07/05/23 07:20 Labs: Abnormal Lab Results - Last 24 Hours (Table) 07/04/23 Range/Units 06:05 WBC 10.63 H (4.50-10.00) X 10*3/uL RBC 3.83 L (4.40-5.60) X 10*6/uL Hgb 8.8 L (13.0-17.0) g/dL Hct 29.1 L (39.6-50.0) % MCV 76.0 L (80.0-97.0) FL MCH 23.0 L (27.0-32.0) pg MCHC 30.2 L (32.0-37.0) g/dL RDW 15.5 H (11.5-14.5) % Plt Count 503 H (140-440) X 10*3/uL
--- NOTE | 2023-07-05 13:08 | P.PN ---
Subjective HISTORY OF PRESENT ILLNESS: This is a 63-year-old male who follows in the office with Dr. Lentz. Patient is admitted to the hospital with A-fib with RVR. Yesterday the patient was maintaining sinus mechanism and was cleared for discharge home. However the patient has went back into A-fib with RVR. This morning he remains in atrial fibrillation with a heart rate around 347751. He denies any chest pain or pressure. He denies any shortness of breath. 07/05/2023 Patient examined this morning the bedside. Patient currently denies chest pain or pressure. He denies shortness of breath. Bedside telemetry reveals atrial fibrillation with a heart rate around 100. However patient has been having episodes of RVR, although not sustained. Blood pressure on the lower side with a systolic between 01556. PHYSICAL EXAM: VITAL SIGNS: Reviewed. GENERAL: Well-developed in no acute distress. NECK: Supple. No JVD or thyromegaly LUNGS: Respirations even and unlabored. Lungs essentially clear to auscultation bilaterally. HEART: Tachycardic. Irregular rate and rhythm. S1 and S2 heard. EXTREMITIES: Normal range of motion. No clubbing or cyanosis. Peripheral pulses intact. No lower extremity edema ASSESSMENT: Paroxysmal atrial fibrillation with RVR Hypertension History of metastatic bladder cancer with nephrostomy tube present PLAN: Continue metoprolol to 50 mg 2 times a day Due to recurrent atrial fibrillation, add oral amiodarone 400 mg twice a day No need to initiate IV Cardizem drip at this time Continue telemetry monitoring Due to patient age, weight, and kidney function, the patient should be on Eliquis 5 mg twice a day. However he is on 2.5 mg twice a day on an outpatient basis. This may be due to his anemia and recent renal failure in May 2023. We will continue with 2.5 mg twice a day. This can be reevaluated on an outpatient basis. Further recommendations pending patient course Nurse practitioner note has been reviewed by physician. Signing provider agrees with the documented findings, assessment, and plan of care documented by DRIVER HELPER as a scribe. Objective - Vital Signs Vital signs: Vital Signs Temp 98.3 F 07/05/23 08:00 Pulse 66 07/05/23 08:00 Resp 19 07/05/23 08:00 BP 93/61 07/05/23 08:00 Pulse Ox 98 07/05/23 08:00 FiO2 Intake & Output 07/04/23 07/05/23 07/05/23 18:59 06:59 18:59 Intake Total 820 600 Output Total 600 Balance 820 0 Weight 57.4 kg Intake: Oral 820 600 Output: Urine 600 Other: Voiding Method Ileal Conduit (Left) Ileal Conduit (Left) Ileal Conduit (Left) # Voids 1 - Labs CBC & Chem 7: 07/05/23 07:20 07/05/23 07:20
[2023-07-05] MEDS: AMIODARONE 200 MG TAB PO SCH (13:22)
[2023-07-06] MEDS: METOPROLOL TARTRATE 50 MG TAB PO SCH (08:29)
[2023-07-06 09:04] VITALS: RESP 20
[2023-07-06 10:23] LABS: HCT 29.2 % (39.0-53.0); HGB 8.9 gm/dL (13.0-17.5); Hypochromasia Moderate; MCH 23.2 pg (25.0-35.0); MCHC 30.5 g/dL (31.0-37.0); MCV 76.1 fL (80.0-100.0); Mean Platelet Volume 7.4; Microcytosis Slight; Platelet Count 552 k/uL (150-450); RBC 3.84 m/uL (4.30-5.90); RDW 14.9 % (11.5-15.5); WBC 13.7 k/uL (3.8-10.6)
[2023-07-06 10:33] LABS: African American GFR (CKD) >90 (>60 ml/min/1.73 sqM); Anion Gap 6 mmol/L; Blood Urea Nitrogen 18 mg/dL (9-20); Calcium 9.3 mg/dL (8.4-10.2); Carbon Dioxide 23 mmol/L (22-30); Chloride 105 mmol/L (98-107); Glucose 81 mg/dL (74-99); Non-African American GFR(CKD) >90 (>60 ml/min/1.73 sqM); Potassium 4.9 mmol/L (3.5-5.1); Sodium 134 mmol/L (137-145)
--- NOTE | 2023-07-06 13:56 | P.PN ---
Subjective Progress Note Date: 07/06/23 HISTORY OF PRESENT ILLNESS: This is a 63-year-old male who follows in the office with Dr. Lentz. Patient is admitted to the hospital with A-fib with RVR. Yesterday the patient was maintaining sinus mechanism and was cleared for discharge home. However the patient has went back into A-fib with RVR. This morning he remains in atrial fibrillation with a heart rate around 680243. He denies any chest pain or pressure. He denies any shortness of breath. 07/05/2023 Patient examined this morning the bedside. Patient currently denies chest pain or pressure. He denies shortness of breath. Bedside telemetry reveals atrial fibrillation with a heart rate around 100. However patient has been having episodes of RVR, although not sustained. Blood pressure on the lower side with a systolic between 64897. 07/05 Patient is seen today on the cardiac stepdown unit. His heart rate is running 124 bpm. He does jump up to the 140s and 150s with ambulation. He is currently on metoprolol 50 mg twice daily and amiodarone 400 mg twice daily. By the afternoon, patient's heart rate was running 100 or less at rest and 1 10-1 20 with activity. Repeat blood work reveals WBC 13.7, hemoglobin 8.9, platelet count 552. Sodium 134, potassium 4.9, creatinine 0.85. PHYSICAL EXAM: VITAL SIGNS: Reviewed. GENERAL: Well-developed in no acute distress. LUNGS: Respirations even and unlabored. Lungs essentially clear to auscultation bilaterally. HEART: Tachycardic. Irregular rate and rhythm. S1 and S2 heard. EXTREMITIES: Normal range of motion. No clubbing or cyanosis. Peripheral pulses intact. No lower extremity edema ASSESSMENT: Paroxysmal atrial fibrillation with RVR Hypertension History of metastatic bladder cancer with nephrostomy tube present PLAN: Patient is cleared for discharge from cardiology. Patient will be on Lopressor 50 mg 3 times daily and amiodarone 200 mg twice daily at discharge Continue Eliquis at 2.5 mg twice daily and this dose will be reevaluated as an outpatient. Nurse practitioner note has been reviewed by physician. Signing provider agrees with the documented findings, assessment, and plan of care documented by AUGER MACHINE OFFBEARER as a scribe. Objective - Vital Signs Vital signs: Vital Signs Temp 97.6 F 07/06/23 08:11 Pulse 85 07/06/23 11:31 Resp 20 07/06/23 11:31 BP 121/85 07/06/23 11:31 Pulse Ox 98 07/06/23 11:31 FiO2 Intake & Output 07/05/23 07/06/23 07/06/23 18:59 06:59 18:59 Intake Total 110 702 Balance 110 702 Weight 57.5 kg Intake: Oral 110 702 Other: Voiding Method Ileal Conduit (Left) Ileal Conduit (Left) Ileal Conduit (Left) - Labs CBC & Chem 7: 07/06/23 09:45 07/06/23 09:45 Labs: Abnormal Lab Results - Last 24 Hours (Table) 07/06/23 07/06/23 Range/Units 09:45 09:45 WBC 13.7 H (3.8-10.6) k/uL RBC 3.84 L (4.30-5.90) m/uL Hgb 8.9 L (13.0-17.5) gm/dL Hct 29.2 L (39.0-53.0) % MCV 76.1 L (80.0-100.0) fL MCH 23.2 L (25.0-35.0) pg MCHC 30.5 L (31.0-37.0) g/dL Plt Count 552 H (150-450) k/uL Sodium 134 L (137-145) mmol/L
[2023-07-06 15:54] VITALS: TEMP 97.9
[2023-07-06 17:36] VITALS: BP 110/73; PULSE 84
== END 2023-07-06 18:35 | disposition home or self-care (01) | DRG 201 ==
LOC: SUPCPDRO 14:52 → EC 14:52 → 3SCARD 20:30 → 5NMEDONC 07-03 13:38 → 3SCARD 07-05 14:17
PROVIDERS: ADMIT Internal Medicine; ATTEND Internal Medicine
DX: I48.21 Permanent atrial fibrillation (principal); I48.0 Paroxysmal atrial fibrillation; N39.0 Urinary tract infection, site not specified; R31.9 Hematuria, unspecified; C67.9 Malignant neoplasm of bladder, unspecified; J44.9 Chronic obstructive pulmonary disease, unspecified; D50.9 Iron deficiency anemia, unspecified; I12.9 Hypertensive chronic kidney disease with stage 1 through stage 4 chronic kidney disease, or unspecified chronic kidney disease; I47.9 Paroxysmal tachycardia, unspecified; N13.6 Pyonephrosis; N18.9 Chronic kidney disease, unspecified; F41.9 Anxiety disorder, unspecified; Z79.01 Long term (current) use of anticoagulants; Z79.51 Long term (current) use of inhaled steroids; Z79.899 Other long term (current) drug therapy; Z93.6 Other artificial openings of urinary tract status; Z91.041 Radiographic dye allergy status; Z79.620 Long term (current) use of immunosuppressive biologic; Z87.891 Personal history of nicotine dependence
CPT/HCPCS: 36415; 71045; 80048; 80053; 81001; 82550; 83605; 83735; 83880; 84145; 84484; 85025; 85027; 85610; 85730; 87086; 93005; 94760; 96365; 96366; 96367; 96375; 99291

== ENCOUNTER → 2023-08-09 | Outpatient (CLI) | payer OTHER ==
--- NOTE | 2023-08-11 13:09 | PE ---
EXAMINATION TYPE: PET CT fusion skull to thigh DATE OF EXAM: 08/09/2023 COMPARISON: 05/15/2023 Prior PET/CT: No prior PET CTs at this location HISTORY: Urinary bladder cancer TECHNIQUE: Following the intravenous administration of 8.76 mCi of F-18 FDG, whole body images are p erformed from the skull base to the midthigh. Images are reviewed on the computer in the coronal, ax ial, and sagittal planes. Reconstructed rotating images are created on independent workstation and r eviewed on the computer. A localization and attenuation correction CT is performed in conjunction w ith the PET scan. DLP: 177.35 mGycm SCAN: Subsequent Blood glucose: 114 mg/dL Average Mediastinum SUV: 1.69 Average Liver SUV: 1.99 FINDINGS: NECK: There is a hyperintense focus in the right neck. Image 62, SUV 10.993 right supraclavicular ly mph node image 68, SUV 20.33 THORAX: Mediastinal adenopathy has hyperintense uptake example image 86, SUV 7.87, image 93, SUV 9.06 , image 100, SUV 7.71, right hilar region image 100, SUV 8.55. Subcarinal lymph node image 105, SUV 6 .97 right infrahilar region image 108, SUV 6.82. There are multiple areas of uptake within nodules within the bilateral lung meehan. This includes ninfa ge 144 posterior right lung base, SUV 6.96, left infrahilar region, image 135, SUV 3.42 left anterior midlung, image 109, SUV 2.94 ABDOMEN: Multiple extensive nodularity with uptake is present within left and right lobes of liver. E xample image 149 left lobe SUV 14.83 right lobe liver SUV 14.11. PELVIS: There is uptake within the left posterior lateral pelvis, image 2:30, SUV 25.22. Small foci o f uptake are present more anteriorly, SUV 13.61 and 20.17. An additional lymph node may be in the dis libby iliac chain, image 239, 11.26 SUV OSSEOUS STRUCTURES: Uptake within a posterior right pedicle lower thoracic spine image 138, SUV 8. Ap pears to be some uptake within ribs. This is more diffuse. An anterior left rib uptake has an SUV of 4.92, image 112. There is a focus of increased radiotracer within the sternum, image 98, SUV 5.53. LOCALIZATION CT: There is asymmetric thickening of the urinary bladder on the left. COMPARISON: No prior PET/CT IMPRESSION: 1. Multiple foci of abnormal uptake radiotracer compatible with multiple metastatic lesions. This wou ld include pulmonary nodules, mediastinal and hilar lymphadenopathy, right neck lymphadenopathy, left pelvic adenopathy, multiple liver metastases within left and right lobes of the liver and osseous me tastasis.
== END | disposition home or self-care (01) ==
LOC: RADPETMAIN 10:01
PROVIDERS: ATTEND Internal Medicine
DX: C67.8 Malignant neoplasm of overlapping sites of bladder (principal)
CPT/HCPCS: 78815; A9552

== ENCOUNTER 2023-08-19 12:23 | Emergency (ER) | payer OTHER ==
[2023-08-19 13:01] VITALS: BP 92/52; PULSE 60; RESP 20; TEMP 98.4
[2023-08-19] MEDS: SODIUM CHLORIDE 0.9% 1,000 ML IV ONE (13:23)
--- NOTE | 2023-08-19 13:29 | ED ---
General Adult HPI - General Chief complaint: Urogenital Stated complaint: can't urinate Time Seen by Provider: 08/19/23 13:00 Source: patient, RN notes reviewed, old records reviewed Mode of arrival: ambulatory Limitations: no limitations - History of Present Illness Initial comments: This is a 63-year-old male who presents to the emergency department stating that he has been having some dysuria over the last 2 to 3 days. Patient denies any fever. Patient has any back pain. Patient states he has a urostomy because he has bladder cancer. Patient is currently being treated with immunotherapy. Patient denies any abdominal pain. Patient states he just has dysuria. Patient denies any blood in the urine. - Related Data Home Medications Medication Instructions Recorded Confirmed Ondansetron [Zofran] 4 mg PO Q4H PRN 05/25/23 08/02/23 amLODIPine [Norvasc] 5 mg PO DAILY@0900 05/25/23 08/02/23 HYDROcodone/APAP 10-325MG [[place] 0.5 - 1 tab PO Q4HR PRN 06/06/23 08/02/23 10-325] Psyllium Husk (with Sugar) 6 gm PO DAILY PRN 06/06/23 08/02/23 [Metamucil Powder] Apixaban [Eliquis] 2.5 mg PO BID@0900,2100 07/01/23 08/02/23 Budesonide/Formoterol Fumarate 2 puff INHALATION RT-BID PRN 07/01/23 08/02/23 [Symbicort 160-4.5 Mcg Inhaler] Ipratropium-Albuterol Nebulize 3 ml INHALATION RT-QID PRN 07/01/23 08/02/23 [Duoneb 0.5 mg-3 mg/3 ml Soln] Amiodarone [Cordarone] 200 mg PO DAILY 07/19/23 08/02/23 Previous Rx's Medication Instructions Recorded Metoprolol Tartrate [Lopressor] 50 mg PO TID 30 Days #90 tab 07/06/23 Levofloxacin [Levaquin] 750 mg PO DAILY #10 tab 08/19/23 Allergies Allergy/AdvReac Type Severity Reaction Status Date / Time Iodinated Contrast Media Allergy Neck Verified 08/19/23 12:35 swelling Review of Systems ROS Statement: Those systems with pertinent positive or pertinent negative responses have been documented in the HPI. ROS Other: All systems not noted in ROS Statement are negative. 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 Past Anesthesia/Blood Transfusion Reactions: No Reported Reaction Past Psychological History: No Psychological Hx Reported Smoking Status: Former smoker Past Alcohol Use History: None Reported Past Drug Use History: None Reported - Past Family History Father Family Medical History: Cancer Additional Family Medical History / Comment(s): lung cancer, smoker General Exam - General Exam Comments Initial Comments: GENERAL: Patient is well-developed and well-nourished. Patient is nontoxic and well- hydrated and is in mild distress. ENT: Neck is soft and supple. No significant lymphadenopathy is noted. Oropharynx is clear. Moist mucous membranes. Neck has full range of motion without eliciting any pain EYES: The sclera were anicteric and conjunctiva were pink and moist. Extraocular movements were intact and pupils were equal round and reactive to light. Eyelids were unremarkable. PULMONARY: Unlabored respirations. Good breath sounds bilaterally. No audible rales rhonchi or wheezing was noted. CARDIOVASCULAR: There is a regular rate and rhythm without any murmurs gallops or rubs. ABDOMEN: Soft and nontender with normal bowel sounds. SKIN: Skin is clear with no lesions or rashes and otherwise unremarkable. NEUROLOGIC: Patient is alert and oriented x3. Cranial nerves II through XII are grossly intact. Motor and sensory are also intact. Normal speech, volume and content. Symmetrical smile. MUSCULOSKELETAL: Normal extremities with adequate strength and full range of motion. LYMPHATICS: No significant lymphadenopathy is noted PSYCHIATRIC: Normal psychiatric evaluation. Limitations: no limitations Course Vital Signs 08/19/23 12:33 Temperature 98.4 F Pulse Rate 60 Respiratory 20 Rate Blood Pressure 92/52 O2 Sat by Pulse 96 Oximetry Medical Decision Making - Medical Decision Making Was pt. sent in by a medical professional or institution (, PA, EXPRESSIVE ART THERAPIST, urgent care, hospital, or fci...) When possible be specific @ -No Did you speak to anyone other than the patient for history (EMS, parent, family, police, friend...)? What history was obtained from this source @ -No Did you review nursing and triage notes (agree or disagree)? Why? @ -I reviewed and agree with nursing and triage notes Were old charts reviewed (outside hosp., previous admission, EMS record, old EKG, old radiological studies, urgent care reports/EKG's, fci records)? Report findings @ -I compared prior lab work with today's lab work patient's white count was mildly elevated compared to previous. Differential Diagnosis (chest pain, altered mental status, abdominal pain women, abdominal pain men, vaginal bleeding, weakness, fever, dyspnea, syncope, headache, dizziness, GI bleed, back pain, seizure, CVA, palpatations, mental health, musculoskeletal)? @ -Urethritis, urinary tract infection, pyelonephritis, this is not an all- inclusive list EKG interpreted by me (3pts min.). @ -As above X-rays interpreted by me (1pt min.). @ -None done CT interpreted by me (1pt min.). @ -None done U/S interpreted by me (1pt. min.). @ -None done What testing was considered but not performed or refused? (CT, X-rays, U/S, labs)? Why? @ -None What meds were considered but not given or refused? Why? @ -None Did you discuss the management of the patient with other professionals (professionals i.e. , PA, EXPRESSIVE ART THERAPIST, lab, RT, psych nurse, social welfare research worker, research biologist, teacher, sheriff officer, case finisher)? Give summary @ -I spoke with Dr. Narayanan he agreed with the antibiotic treatment and wanted the patient with close follow-up during this week. Was smoking cessation discussed for >3mins.? @ -No Was critical care preformed (if so, how long)? @ -No Were there social determinants of health that impacted care today? How? (Homelessness, low income, unemployed, alcoholism, drug addiction, transportation, low edu. Level, literacy, decrease access to med. care, senior care, rehab)? @ -No Was there de-escalation of care discussed even if they declined (Discuss DNR or withdrawal of care, Hospice)? DNR status @ -No What co-morbidities impacted this encounter? (DM, HTN, Smoking, COPD, CAD, Cancer, CVA, ARF, Chemo, Hep., AIDS, mental health diagnosis, sleep apnea, morbid obesity)? @ -None Was patient admitted / discharged? Hospital course, mention meds given and route, prescriptions, significant lab abnormalities, going to OR and other pertinent info. @ -Patient received 2 g of Rocephin for urinary tract infection. Patient was sent home with Levaquin. Patient will follow-up with urology this week. Undiagnosed new problem with uncertain prognosis? @ -No Drug Therapy requiring intensive monitoring for toxicity (Heparin, Nitro, Insulin, Cardizem)? @ -No Were any procedures done? @ -No Diagnosis/symptom? @ -Urinary tract infection Acute, or Chronic, or Acute on Chronic? @ -Acute Uncomplicated (without systemic symptoms) or Complicated (systemic symptoms)? @ -Complicated Side effects of treatment? @ -No Exacerbation, Progression, or Severe Exacerbation? @ -No Poses a threat to life or bodily function? How? (Chest pain, [place], [place], pneumonia, PE, COPD, DKA, ARF, appy, cholecystitis, CVA, Diverticulitis, Homicidal, Suicidal, threat to staff... and all critical care pts) @ -No - Lab Data Result diagrams: 08/19/23 13:23 08/19/23 13:23 Lab Results 08/19/23 08/19/23 08/19/23 Range/Units 13:23 13:23 13:23 WBC 18.3 H (3.8-10.6) k/uL RBC 3.60 L (4.30-5.90) m/uL Hgb 8.2 L (13.0-17.5) gm/dL Hct 27.3 L (39.0-53.0) % MCV 75.7 L (80.0-100.0) fL MCH 22.7 L (25.0-35.0) pg MCHC 30.0 L (31.0-37.0) g/dL RDW 17.0 H (11.5-15.5) % Plt Count 562 H (150-450) k/uL MPV 8.0 Neutrophils % 82 % Lymphocytes % 6 % Monocytes % 8 % Eosinophils % 2 % Basophils % 0 % Neutrophils # 14.9 H (1.3-7.7) k/uL Lymphocytes # 1.0 (1.0-4.8) k/uL Monocytes # 1.5 H (0-1.0) k/uL Eosinophils # 0.4 (0-0.7) k/uL Basophils # 0.0 (0-0.2) k/uL Hypochromasia Marked Anisocytosis Slight Microcytosis Slight Sodium 135 L (137-145) mmol/L Potassium 5.1 (3.5-5.1) mmol/L Chloride 102 (98-107) mmol/L Carbon Dioxide 24 (22-30) mmol/L Anion Gap 9 mmol/L BUN 24 H (9-20) mg/dL Creatinine 1.03 (0.66-1.25) mg/dL Est GFR (CKD-EPI)AfAm 90 (>60 ml/min/1.73 sqM) Est GFR (CKD-EPI)NonAf 78 (>60 ml/min/1.73 sqM) Glucose 105 H (74-99) mg/dL Calcium 8.8 (8.4-10.2) mg/dL Total Bilirubin 0.5 (0.2-1.3) mg/dL AST 33 (17-59) U/L ALT 60 H (4-49) U/L Alkaline Phosphatase 254 H (38-126) U/L Total Protein 6.2 L (6.3-8.2) g/dL Albumin 3.1 L (3.5-5.0) g/dL Urine Color Yellow Urine Appearance Cloudy (Clear) Urine pH 6.0 (5.0-8.0) Ur Specific [place] 1.023 (1.001-1.035) Urine Protein 1+ H (Negative) Urine Glucose (UA) Negative (Negative) Urine Ketones Negative (Negative) Urine Blood Small H (Negative) Urine Nitrite Negative (Negative) Urine Bilirubin Negative (Negative) Urine Urobilinogen <2.0 (<2.0) mg/dL Ur Leukocyte Esterase Large H (Negative) Urine RBC 29 H (0-5) /hpf Urine WBC >182 H (0-5) /hpf Urine WBC Clumps Few H (None) /hpf Ur Squamous Epith Cells 1 (0-4) /hpf Urine Bacteria Many H (None) /hpf Disposition Clinical Impression: Urinary tract infection Disposition: HOME SELF-CARE Instructions (If sedation given, give patient instructions): Urinary Tract Infection in Men (ED) Prescriptions: Levofloxacin [Levaquin] 750 mg PO DAILY #10 tab Is patient prescribed a controlled substance at d/c from ED?: No Referrals: Carlos Hankins MD [Primary Care Provider] - 1-2 days Time of Disposition: 14:42
[2023-08-19 13:43] LABS: Anisocytosis Slight; Basophils % (A) 0 %; Eosinophils # (A) 0.4 k/uL (0-0.7); Eosinophils % (A) 2 %; HCT 27.3 % (39.0-53.0); HGB 8.2 gm/dL (13.0-17.5); Hypochromasia Marked; Lymphocytes % (A) 6 %; MCH 22.7 pg (25.0-35.0); MCV 75.7 fL (80.0-100.0); Microcytosis Slight; Monocytes # (A) 1.5 k/uL (0-1.0); Monocytes % (A) 8 %; Neutrophils # (A) 14.9 k/uL (1.3-7.7); Neutrophils % (A) 82 %; Platelet Count 562 k/uL (150-450); WBC 18.3 k/uL (3.8-10.6)
[2023-08-19 13:55] LABS: ALT 60 U/L (4-49); AST 33 U/L (17-59); African American GFR (CKD) 90 (>60 ml/min/1.73 sqM); Albumin 3.1 g/dL (3.5-5.0); Alkaline Phosphatase 254 U/L (38-126); Anion Gap 9 mmol/L; Blood Urea Nitrogen 24 mg/dL (9-20); Calcium 8.8 mg/dL (8.4-10.2); Carbon Dioxide 24 mmol/L (22-30); Chloride 102 mmol/L (98-107); Glucose 105 mg/dL (74-99); Non-African American GFR(CKD) 78 (>60 ml/min/1.73 sqM); Potassium 5.1 mmol/L (3.5-5.1); Sodium 135 mmol/L (137-145); Total Bilirubin 0.5 mg/dL (0.2-1.3); Total Protein 6.2 g/dL (6.3-8.2)
[2023-08-19 14:11] LABS: Appearance,Urine Cloudy (Clear); Bacteria,Urine Many /hpf; Bilirubin,Urine Negative (Negative); Blood,Urine Small (Negative); Color,Urine Yellow; Glucose,Urine (UA) Negative (Negative); Ketones,Urine Negative (Negative); Leukocyte Esterase,Urine Large (Negative); Nitrite,Urine Negative (Negative); Protein,Urine 1+ (Negative); RBC,Urine 29 /hpf (0-5); Specific Gravity,Urine 1.023 (1.001-1.035); Squamous Epithelial Cell,Urine 1 /hpf (0-4); Urobilinogen,Urine <2.0 mg/dL (<2.0); WBC,Urine >182 /hpf (0-5)
[2023-08-19] MEDS: cefTRIAXone IN SWFI 1,000 MG/10 ML SYRINGE IVP STA ×2 (15:19→15:20)
== END 2023-08-19 15:22 | disposition home or self-care (01) ==
LOC: EC 12:23
DX: N39.0 Urinary tract infection, site not specified (principal); B97.0 Adenovirus as the cause of diseases classified elsewhere; Z87.891 Personal history of nicotine dependence; Z91.041 Radiographic dye allergy status
CPT/HCPCS: 36415; 80053; 85025; 81001; 87086; 87077; 87186; 99283; 96374; 96361; J0696

== ENCOUNTER 2023-09-17 06:35 | Inpatient (IN) | payer OTHER ==
--- NOTE | 2023-09-17 06:57 | ED ---
Abdominal Pain HPI - General Chief Complaint: Abdominal Pain Stated Complaint: ABD Pain Time Seen by Provider: 09/17/23 06:37 Source: patient, RN notes reviewed Mode of arrival: ambulatory Limitations: no limitations - History of Present Illness Initial Comments: 63-year-old male presents emergency department complaining of abdominal pain, drainage from the nephrostomy. Patient states that he has known bladder cancer is on immunotherapy he is followed by Dr. Bernardo. Dr Bowden and Dr. Hankins. Patient states that he was seen down at [place] but was advised to call Sunday as his physician was not in office. Patient states he had increasing abdominal discomfort, distention, drainage from nephrostomy tube on the left. Patient states he has had decreased appetite. He does complain of night sweats unsure if he had a fever. Patient denies any chest pain or shortness of breath patient does have significant weight loss. Patient denies any change in bowel habits currently. - Related Data Home Medications Medication Instructions Recorded Confirmed Ondansetron [Zofran] 4 mg PO Q4H PRN 05/25/23 09/17/23 HYDROcodone/APAP 10-325MG [[place] 1 tab PO Q4HR PRN 06/06/23 09/17/23 10-325] Apixaban [Eliquis] 2.5 mg PO BID 07/01/23 09/17/23 Budesonide/Formoterol Fumarate 2 puff INHALATION RT-BID PRN 07/01/23 09/17/23 [Symbicort 160-4.5 Mcg Inhaler] Ipratropium-Albuterol Nebulize 3 ml INHALATION RT-QID PRN 07/01/23 09/17/23 [Duoneb 0.5 mg-3 mg/3 ml Soln] Amiodarone [Cordarone] 200 mg PO DAILY 07/19/23 09/17/23 Albuterol Sulfate [Albuterol 2 puff PO RT-Q4H PRN 09/17/23 09/17/23 Sulfate Hfa] Previous Rx's Medication Instructions Recorded Metoprolol Tartrate [Lopressor] 50 mg PO TID 30 Days #90 tab 07/06/23 Allergies Allergy/AdvReac Type Severity Reaction Status Date / Time Iodinated Contrast Media Allergy Neck Verified 09/17/23 09:32 swelling Review of Systems ROS Statement: Those systems with pertinent positive or pertinent negative responses have been documented in the HPI. ROS Other: All systems not noted in ROS Statement are negative. 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 left nephrostomy tube (2023) Past Anesthesia/Blood Transfusion Reactions: No Reported Reaction Past Psychological History: No Psychological Hx Reported Smoking Status: Former smoker Past Alcohol Use History: None Reported Past Drug Use History: None Reported - Past Family History Father Family Medical History: Cancer Additional Family Medical History / Comment(s): lung cancer, smoker General Exam Limitations: no limitations General appearance: alert, in no apparent distress Head exam: Present: atraumatic, normocephalic, normal inspection Neck exam: Present: normal inspection, full ROM. Absent: tenderness, meningismus, lymphadenopathy Respiratory exam: Present: normal lung sounds bilaterally. Absent: respiratory distress, wheezes, rales, rhonchi, stridor Cardiovascular Exam: Present: regular rate, normal rhythm, normal heart sounds. Absent: systolic murmur, diastolic murmur, rubs, gallop, clicks GI/Abdominal exam: Present: soft, distended, tenderness, normal bowel sounds. Absent: guarding, rebound, rigid Back exam: Present: tenderness, other (Left flank there is noted nephrostomy there is small amount of drainage around the site) Skin exam: Present: warm, dry, intact, normal color. Absent: rash Course Vital Signs 09/17/23 09/17/23 06:37 09:39 Temperature 97.6 F Pulse Rate 77 69 Respiratory 18 18 Rate Blood Pressure 111/65 94/61 O2 Sat by Pulse 99 96 Oximetry Medical Decision Making - Medical Decision Making Was pt. sent in by a medical professional or institution (, [place], MATERIAL REQUIREMENTS PLANNING MANAGER, urgent c are, hospital, or retirement...) When possible be specific @ -No Did you speak to anyone other than the patient for history (EMS, parent, family, police, friend...)? What history was obtained from this source @ -No Did you review nursing and triage notes (agree or disagree)? Why? @ -I reviewed and agree with nursing and triage notes Were old charts reviewed (outside hosp., previous admission, EMS record, old EKG, old radiological studies, urgent care reports/EKG's, retirement records)? Report findings @ -Reviewed prior CBC and CMP's Differential Diagnosis (chest pain, altered mental status, abdominal pain women, abdominal pain men, vaginal bleeding, weakness, fever, dyspnea, syncope, headache, dizziness, GI bleed, back pain, seizure, CVA, palpatations, mental health, musculoskeletal)? @ -Differential Abdominal Pain Men: Appendicitis, cholecystitis, diverticulosis, ischemic bowel, pancreatitis, hepatitis, UTI, gastroenteritis, AAA, incarcerated hernia, bowel obstruction, constipation, inflammatory bowel, hepatitis, peptic ulcer disease, splenic infarction, perforated viscus, testicular torsion, this is not meant to be an all-inclusive list EKG interpreted by me (3pts min.). @None X-rays interpreted by me (1pt min.). @ -None done CT interpreted by me (1pt min.). @ -CT abdomen pelvis shows metastatic cancer, no abnormal findings around nephrostomy U/S interpreted by me (1pt. min.). @ -None done What testing was considered but not performed or refused? (CT, X-rays, U/S, labs)? Why? @ -None What meds were considered but not given or refused? Why? @ -None Did you discuss the management of the patient with other professionals (professionals i.e. , PA, MATERIAL REQUIREMENTS PLANNING MANAGER, lab, RT, psych nurse, social group worker, software architect, teacher, chief science officer, pillowcase cleaner)? Give summary @ -EM for admission regarding anemia, UTI, weakness Was smoking cessation discussed for >3mins.? @ -No Was critical care preformed (if so, how long)? @ -35 minutes Were there social determinants of health that impacted care today? How? (Homelessness, low income, unemployed, alcoholism, drug addiction, transport ation, low edu. Level, literacy, decrease access to med. care, retirement, rehab)? @ -No Was there de-escalation of care discussed even if they declined (Discuss DNR or withdrawal of care, Hospice)? DNR status @ -No What co-morbidities impacted this encounter? (DM, HTN, Smoking, COPD, CAD, Cancer, CVA, ARF, Chemo, Hep., AIDS, mental health diagnosis, sleep apnea, morbid obesity)? @Bladder CA Was patient admitted / discharged? Hospital course, mention meds given and route, prescriptions, significant lab abnormalities, going to OR and other pertinent info. @ -Admitted patient presented for increasing weakness, concern for possible infection. Patient does have leukocytosis, lactic acidosis and noted anemia. Patient was started on IV antibiotics, IV fluids, blood transfusion. Patient will be admitted with multiple consults Undiagnosed new problem with uncertain prognosis? @ -No Drug Therapy requiring intensive monitoring for toxicity (Heparin, Nitro, Insulin, Cardizem)? @ -No Were any procedures done? @ -No Diagnosis/symptom? @ -anemia, UTI, weakness, bladder cancer Acute, or Chronic, or Acute on Chronic? @ -Acute Uncomplicated (without systemic symptoms) or Complicated (systemic symptoms)? @ -Complicated Side effects of treatment? @ -No Exacerbation, Progression, or Severe Exacerbation? @ -No Poses a threat to life or bodily function? How? (Chest pain, [place], [place], pneumonia, PE, COPD, DKA, ARF, appy, cholecystitis, CVA, Diverticulitis, Homicidal, Suicidal, threat to staff... and all critical care pts) @ -Yes anemia, cancer, endorgan failure - Lab Data Result diagrams: 09/17/23 07:02 09/17/23 07:02 Lab Results 09/17/23 09/17/23 09/17/23 Range/Units 07:02 07:02 07:02 WBC 19.6 H (3.8-10.6) k/uL RBC 3.13 L (4.30-5.90) m/uL Hgb 6.7 L* D (13.0-17.5) gm/dL Hct 24.2 L (39.0-53.0) % MCV 77.3 L (80.0-100.0) fL MCH 21.5 L (25.0-35.0) pg MCHC 27.8 L (31.0-37.0) g/dL RDW 18.5 H (11.5-15.5) % Plt Count 530 H (150-450) k/uL MPV 8.6 Neutrophils % 85 % Lymphocytes % 5 % Monocytes % 6 % Eosinophils % 3 % Basophils % 0 % Neutrophils # 16.7 H (1.3-7.7) k/uL Lymphocytes # 1.0 (1.0-4.8) k/uL Monocytes # 1.2 H (0-1.0) k/uL Eosinophils # 0.5 (0-0.7) k/uL Basophils # 0.0 (0-0.2) k/uL Hypochromasia Marked Anisocytosis Slight Microcytosis Slight Sodium 133 L (137-145) mmol/L Potassium 5.1 (3.5-5.1) mmol/L Chloride 103 (98-107) mmol/L Carbon Dioxide 22 (22-30) mmol/L Anion Gap 8 mmol/L BUN 21 H (9-20) mg/dL Creatinine 0.73 (0.66-1.25) mg/dL Est GFR (CKD-EPI)AfAm >90 (>60 ml/min/1.73 sqM) Est GFR (CKD-EPI)NonAf >90 (>60 ml/min/1.73 sqM) Glucose 110 H (74-99) mg/dL Lactic Ac Sepsis Rflx Plasma Lactic Acid [place] (0.7-2.0) mmol/L Calcium 8.3 L (8.4-10.2) mg/dL Total Bilirubin 1.1 (0.2-1.3) mg/dL AST 44 (17-59) U/L ALT 33 (4-49) U/L Alkaline Phosphatase 363 H (38-126) U/L Total Protein 5.7 L (6.3-8.2) g/dL Albumin 2.8 L (3.5-5.0) g/dL Lipase 19 L (23-300) U/L Urine Color Yellow Urine Appearance Clear (Clear) Urine pH 6.5 (5.0-8.0) Ur Specific [place] 1.018 (1.001-1.035) Urine Protein Trace H (Negative) Urine Glucose (UA) Negative (Negative) Urine Ketones Negative (Negative) Urine Blood Trace H (Negative) Urine Nitrite Negative (Negative) Urine Bilirubin Negative (Negative) Urine Urobilinogen 8.0 (<2.0) mg/dL Ur Leukocyte Esterase Moderate H (Negative) Urine RBC 5 (0-5) /hpf Urine WBC 7 H (0-5) /hpf Urine Bacteria Rare H (None) /hpf Urine Mucus Rare H (None) /hpf Blood Type Confirm Blood Type Recheck Bld Type Recheck Status 09/17/23 09/17/23 09/17/23 Range/Units 07:02 07:49 08:30 WBC (3.8-10.6) k/uL RBC (4.30-5.90) m/uL Hgb (13.0-17.5) gm/dL Hct (39.0-53.0) % MCV (80.0-100.0) fL MCH (25.0-35.0) pg MCHC (31.0-37.0) g/dL RDW (11.5-15.5) % Plt Count (150-450) k/uL MPV Neutrophils % % Lymphocytes % % Monocytes % % Eosinophils % % Basophils % % Neutrophils # (1.3-7.7) k/uL Lymphocytes # (1.0-4.8) k/uL Monocytes # (0-1.0) k/uL Eosinophils # (0-0.7) k/uL Basophils # (0-0.2) k/uL Hypochromasia Anisocytosis Microcytosis Sodium (137-145) mmol/L Potassium (3.5-5.1) mmol/L Chloride (98-107) mmol/L Carbon Dioxide (22-30) mmol/L Anion Gap mmol/L BUN (9-20) mg/dL Creatinine (0.66-1.25) mg/dL Est GFR (CKD-EPI)AfAm (>60 ml/min/1.73 sqM) Est GFR (CKD-EPI)NonAf (>60 ml/min/1.73 sqM) Glucose (74-99) mg/dL Lactic Ac Sepsis Rflx Y Plasma Lactic Acid [place] 3.2 H* (0.7-2.0) mmol/L Calcium (8.4-10.2) mg/dL Total Bilirubin (0.2-1.3) mg/dL AST (17-59) U/L ALT (4-49) U/L Alkaline Phosphatase (38-126) U/L Total Protein (6.3-8.2) g/dL Albumin (3.5-5.0) g/dL Lipase (23-300) U/L Urine Color Urine Appearance (Clear) Urine pH (5.0-8.0) Ur Specific [place] (1.001-1.035) Urine Protein (Negative) Urine Glucose (UA) (Negative) Urine Ketones (Negative) Urine Blood (Negative) Urine Nitrite (Negative) Urine Bilirubin (Negative) Urine Urobilinogen (<2.0) mg/dL Ur Leukocyte Esterase (Negative) Urine RBC (0-5) /hpf Urine WBC (0-5) /hpf Urine Bacteria (None) /hpf Urine Mucus (None) /hpf Blood Type Confirm Blood Type Recheck No Previous Record Bld Type Recheck Status CABO Indicated 09/17/23 Range/Units 08:40 WBC (3.8-10.6) k/uL RBC (4.30-5.90) m/uL Hgb (13.0-17.5) gm/dL Hct (39.0-53.0) % MCV (80.0-100.0) fL MCH (25.0-35.0) pg MCHC (31.0-37.0) g/dL RDW (11.5-15.5) % Plt Count (150-450) k/uL MPV Neutrophils % % Lymphocytes % % Monocytes % % Eosinophils % % Basophils % % Neutrophils # (1.3-7.7) k/uL Lymphocytes # (1.0-4.8) k/uL Monocytes # (0-1.0) k/uL Eosinophils # (0-0.7) k/uL Basophils # (0-0.2) k/uL Hypochromasia Anisocytosis Microcytosis Sodium (137-145) mmol/L Potassium (3.5-5.1) mmol/L Chloride (98-107) mmol/L Carbon Dioxide (22-30) mmol/L Anion Gap mmol/L BUN (9-20) mg/dL Creatinine (0.66-1.25) mg/dL Est GFR (CKD-EPI)AfAm (>60 ml/min/1.73 sqM) Est GFR (CKD-EPI)NonAf (>60 ml/min/1.73 sqM) Glucose (74-99) mg/dL Lactic Ac Sepsis Rflx Plasma Lactic Acid [place] (0.7-2.0) mmol/L Calcium (8.4-10.2) mg/dL Total Bilirubin (0.2-1.3) mg/dL AST (17-59) U/L ALT (4-49) U/L Alkaline Phosphatase (38-126) U/L Total Protein (6.3-8.2) g/dL Albumin (3.5-5.0) g/dL Lipase (23-300) U/L Urine Color Urine Appearance (Clear) Urine pH (5.0-8.0) Ur Specific [place] (1.001-1.035) Urine Protein (Negative) Urine Glucose (UA) (Negative) Urine Ketones (Negative) Urine Blood (Negative) Urine Nitrite (Negative) Urine Bilirubin (Negative) Urine Urobilinogen (<2.0) mg/dL Ur Leukocyte Esterase (Negative) Urine RBC (0-5) /hpf Urine WBC (0-5) /hpf Urine Bacteria (None) /hpf Urine Mucus (None) /hpf Blood Type Confirm A Positive Blood Type Recheck Bld Type Recheck Status Critical Care Time Critical Care Time: Yes Total Critical Care Time: 35 Disposition Clinical Impression: Anemia, UTI (urinary tract infection), Weakness, Malignant neoplasm metastatic from bladder Disposition: ADMITTED IP TO THIS [facility] Condition: Poor Referrals: Carlos Hankins MD [Primary Care Provider] - 1-2 days Time of Disposition: 10:14
[2023-09-17] MEDS: SODIUM CHLORIDE 0.9% 1,000 ML IV STA (07:23)
[2023-09-17 07:42] LABS: ALT 33 U/L (4-49); African American GFR (CKD) >90 (>60 ml/min/1.73 sqM); Albumin 2.8 g/dL (3.5-5.0); Anion Gap 8 mmol/L; Blood Urea Nitrogen 21 mg/dL (9-20); Calcium 8.3 mg/dL (8.4-10.2); Carbon Dioxide 22 mmol/L (22-30); Chloride 103 mmol/L (98-107); Glucose 110 mg/dL (74-99); Lipase 19 U/L (23-300); Non-African American GFR(CKD) >90 (>60 ml/min/1.73 sqM); Sodium 133 mmol/L (137-145); Total Bilirubin 1.1 mg/dL (0.2-1.3); Total Protein 5.7 g/dL (6.3-8.2)
[2023-09-17 07:48] LABS: AST 44 U/L (17-59); Alkaline Phosphatase 363 U/L (38-126); Potassium 5.1 mmol/L (3.5-5.1)
--- NOTE | 2023-09-17 07:48 | CT ---
EXAMINATION TYPE: CT abdomen pelvis wo con DATE OF EXAM: 09/17/2023 COMPARISON: 05/26/2023 and PET/CT dated 08/09/2023 HISTORY: Abdominal pain, nephrostomy drainage. CT DLP: 348.9 mGycm Examination of the solid and hollow viscera is limited given the lack of contrast. FINDINGS: LUNG BASES: Basilar pulmonary nodules are noted. No evidence for infiltrate. LIVER/GB: Hepatomegaly with areas of ill-defined decreased attenuation suspicious for metastatic dise ase to the liver. The gallbladder is unremarkable. No space-occupying hepatic lesion. PANCREAS: No pancreatic mass identified. No inflammatory process seen. SPLEEN: No evidence for splenomegaly. No intrasplenic lesions seen. ADRENALS: No adrenal nodules identified. No evidence for thickening. KIDNEYS: Left-sided nephrostomy tube is redemonstrated. No evidence for hydronephrosis. No evidence f or renal mass. No nephrolithiasis. No hydronephrosis. Urinary bladder mass encompassing most of the l eft side of the urinary bladder. BOWEL: Appendix has a normal appearance. No evidence of bowel obstruction. No inflammatory process. Lymph nodes: No evidence for adenopathy greater than 1 cm. Abdominal aorta: Atheromatous changes seen. No evidence for aneurysm. Genital organs: No significant abnormality. Other: Free fluid within the pelvis. Scattered sclerotic bony metastases. IMPRESSION: 1. Left-sided nephrostomy tube is in place without evidence for hydronephrosis. 2. Metastatic disease to the liver, lungs and osseous structures. Wall thickening with mass left urin kennedy bladder.
[2023-09-17 07:59] LABS: Anisocytosis Slight; Basophils % (A) 0 %; Eosinophils # (A) 0.5 k/uL (0-0.7); Eosinophils % (A) 3 %; HCT 24.2 % (39.0-53.0); Hypochromasia Marked; Lymphocytes % (A) 5 %; MCH 21.5 pg (25.0-35.0); MCHC 27.8 g/dL (31.0-37.0); MCV 77.3 fL (80.0-100.0); Mean Platelet Volume 8.6; Microcytosis Slight; Monocytes # (A) 1.2 k/uL (0-1.0); Monocytes % (A) 6 %; Neutrophils # (A) 16.7 k/uL (1.3-7.7); Neutrophils % (A) 85 %; Platelet Count 530 k/uL (150-450); RBC 3.13 m/uL (4.30-5.90); RDW 18.5 % (11.5-15.5); WBC 19.6 k/uL (3.8-10.6)
[2023-09-17 08:08] LABS: HGB 6.7 gm/dL (13.0-17.5)
[2023-09-17 09:43] LABS: Appearance,Urine Clear (Clear); Bacteria,Urine Rare /hpf; Bilirubin,Urine Negative (Negative); Blood,Urine Trace (Negative); Color,Urine Yellow; Glucose,Urine (UA) Negative (Negative); Ketones,Urine Negative (Negative); Leukocyte Esterase,Urine Moderate (Negative); Mucus,Urine Rare /hpf; Nitrite,Urine Negative (Negative); PH, Urine 6.5 (5.0-8.0); Protein,Urine Trace (Negative); RBC,Urine 5 /hpf (0-5); Specific Gravity,Urine 1.018 (1.001-1.035); WBC,Urine 7 /hpf (0-5)
[2023-09-17] MEDS ORDERED: NALOXONE 0.4 MG/ML 1 ML VIAL IV PRN (10:15)
[2023-09-17] MEDS ORDERED: ALBUTEROL HFA INHALER INHALATION PRN (10:16)
[2023-09-17 12:47] LABS: Appearance,Urine Clear (Clear); Bilirubin,Urine Negative (Negative); Blood,Urine Trace (Negative); Color,Urine Yellow; Glucose,Urine (UA) Negative (Negative); Ketones,Urine Negative (Negative); Leukocyte Esterase,Urine Negative (Negative); Mucus,Urine Occasional /hpf; Nitrite,Urine Negative (Negative); Protein,Urine Trace (Negative); RBC,Urine 23 /hpf (0-5); Specific Gravity,Urine 1.023 (1.001-1.035); Squamous Epithelial Cell,Urine <1 /hpf (0-4); WBC,Urine 9 /hpf (0-5)
[2023-09-17] MEDS: HYDROcodone/APAP 10-325MG 1 EACH TAB PO PRN (12:58)
[2023-09-17] MEDS: AMIODARONE 200 MG TAB PO STA (12:58)
[2023-09-17] MEDS: METOPROLOL TARTRATE 50 MG TAB PO SCH (17:57)
--- NOTE | 2023-09-17 23:07 | P.HPIM ---
History of Present Illness H&P Date: 09/17/23 Chief Complaint: Abdominal pain Patient is a 63-year-old male with a past medical history of atrial fibrillation on anticoagulation with Eliquis, COPD, prior history of smoking and bladder cancer diagnosed in January 2023 status post tumor resection and left nerve damage tube placement currently undergoing immunotherapy last therapy 2 weeks ago and missed most recent therapy due to urinary tract infection. Patient presents today with complaints of abdominal pain mainly in the lower abdomen. Patient was seen at [facility] and advised to call Sunday as his physician was not in office. Patient has been having increasing abdominal discomfort, distention and decreased appetite. Patient is also complaining of night sweats but denies any subjective fevers at home. Urine is noted in the nephrostomy tube. No complaints of chest pain or shortness of breath. No nausea nausea vomiting or diarrhea. No cough or sputum production. CT of the abdomen pelvis showed left-sided nephrostomy tube in place without evidence for hydronephrosis. Metastatic disease to the liver lung scan and osseous structures. Wall thickening within mass left urinary bladder. Laboratory data showed WBC 19.6 hemoglobin 6.7 and platelets 530 MCV 77.3 Sodium 133 potassium 5.1 chloride 103 bicarb is 22 BUN 21 and creatinine 0.73 and blood sugar 110 and lactic acid 3.2 and calcium 8.3. Alk phos 363 AST 44 ALT 33 and lipase 19. Urinalysis showed clear with trace protein and trace blood nitrate negative and initial urinalysis showed moderate leukocyte Estrace and WBC 7. Review of Systems Constitutional: Patient denies any fever or chills. Night sweats. Generalized weakness and loss of appetite Abdomen: Patient denied nausea vomiting and diarrhea. Patient does have lower abdominal abdominal pain. Cardiovascular: Patient denies any chest pain or short of breath no palpitations. Respiratory: patient denied any cough or sputum production. No shortness of breath Neurologic: Patient denied any numbness or tingling. no headache. Musculoskeletal: Patient denies any complaints of joint swelling or deformity. Skin: Negative Psychiatric: Negative Endocrine: No heat or cold intolerance. No recent weight gain. Genitourinary: No dysuria or hematuria. 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 left nephrostomy tube (2023) Past Anesthesia/Blood Transfusion Reactions: No Reported Reaction Past Psychological History: No Psychological Hx Reported Smoking Status: Former smoker Past Alcohol Use History: None Reported Past Drug Use History: None Reported - Past Family History Father Family Medical History: Cancer Additional Family Medical History / Comment(s): lung cancer, smoker Medications and Allergies Home Medications Medication Instructions Recorded Confirmed Type Ondansetron [Zofran] 4 mg PO Q4H PRN 05/25/23 09/17/23 History HYDROcodone/APAP 10-325MG [[place] 1 tab PO Q4HR PRN 06/06/23 09/17/23 History 10-325] Apixaban [Eliquis] 2.5 mg PO BID 07/01/23 09/17/23 History Budesonide/Formoterol Fumarate 2 puff INHALATION RT-BID PRN 07/01/23 09/17/23 History [Symbicort 160-4.5 Mcg Inhaler] Ipratropium-Albuterol Nebulize 3 ml INHALATION RT-QID PRN 07/01/23 09/17/23 History [Duoneb 0.5 mg-3 mg/3 ml Soln] Metoprolol Tartrate [Lopressor] 50 mg PO TID 30 Days #90 tab 07/06/23 09/17/23 Rx Amiodarone [Cordarone] 200 mg PO DAILY 07/19/23 09/17/23 History Albuterol Sulfate [Albuterol 2 puff PO RT-Q4H PRN 09/17/23 09/17/23 History Sulfate Hfa] Allergies Allergy/AdvReac Type Severity Reaction Status Date / Time Iodinated Contrast Media Allergy Neck Verified 09/17/23 09:32 swelling Physical Exam Vitals: Vital Signs Temp Pulse Resp BP Pulse Ox 09/17/23 14:15 98.5 F 82 20 130/62 95 09/17/23 12:34 78 18 139/69 97 09/17/23 11:30 97.8 F 70 18 123/73 99 09/17/23 11:15 97.7 F 65 18 106/66 98 09/17/23 11:10 97.7 F 67 18 114/65 98 09/17/23 11:05 97.7 F 67 18 105/64 97 09/17/23 10:58 97.7 F 68 18 118/68 97 09/17/23 09:39 69 18 94/61 96 09/17/23 06:37 97.6 F 77 18 111/65 99 Intake and Output 09/16/23 09/17/23 09/17/23 22:59 06:59 14:59 Intake Total 272 Balance 272 Intake: Blood Product 272 Rc Pheresis As3 Unit 272 [id number] Other: Weight 58.967 kg PHYSICAL EXAMINATION: Patient is lying in the bed , no acute distress, awake alert and oriented. Patient is weak and thin build. HEENT: Normocephalic. Neck is supple. Pupils reactive. Nostrils clear. Oral cavity is moist. Neck reveals no JVD, carotid bruits, or thyromegaly. CHEST EXAMINATION: Trachea is central. Symmetrical expansion. Lung meehan clear to auscultation and percussion. CARDIAC: Normal S1, S2 with no gallops. No murmurs ABDOMEN: Soft. Bowel sounds present, left nephrostomy tube in place. No organomegaly. No abdominal bruits. Extremities: reveal no edema. No clubbing or cyanosis Neurologically awake, alert, oriented x3 with well-coordinated movements. No gross focal deficits noted Skin: No rash or skin lesions. Psychiatric: Coperative. Nonsuicidal Musculoskeletal: No joint swelling or deformity. Results CBC & Chem 7: 09/17/23 07:02 09/17/23 07:02 Labs: Abnormal Lab Results - Last 24 Hours (Table) 09/17/23 09/17/23 09/17/23 Range/Units 07:02 07:02 07:02 WBC 19.6 H (3.8-10.6) k/uL RBC 3.13 L (4.30-5.90) m/uL Hgb 6.7 L* D (13.0-17.5) gm/dL Hct 24.2 L (39.0-53.0) % MCV 77.3 L (80.0-100.0) fL MCH 21.5 L (25.0-35.0) pg MCHC 27.8 L (31.0-37.0) g/dL RDW 18.5 H (11.5-15.5) % Plt Count 530 H (150-450) k/uL Neutrophils # 16.7 H (1.3-7.7) k/uL Monocytes # 1.2 H (0-1.0) k/uL Sodium 133 L (137-145) mmol/L BUN 21 H (9-20) mg/dL Glucose 110 H (74-99) mg/dL Plasma Lactic Acid Milad (0.7-2.0) mmol/L Calcium 8.3 L (8.4-10.2) mg/dL Alkaline Phosphatase 363 H (38-126) U/L Total Protein 5.7 L (6.3-8.2) g/dL Albumin 2.8 L (3.5-5.0) g/dL Lipase 19 L (23-300) U/L Urine Protein Trace H (Negative) Urine Blood Trace H (Negative) Ur Leukocyte Esterase Moderate H (Negative) Urine RBC (0-5) /hpf Urine WBC 7 H (0-5) /hpf Urine Bacteria Rare H (None) /hpf Urine Mucus Rare H (None) /hpf Crossmatch 09/17/23 09/17/23 09/17/23 Range/Units 07:02 08:30 10:10 WBC (3.8-10.6) k/uL RBC (4.30-5.90) m/uL Hgb (13.0-17.5) gm/dL Hct (39.0-53.0) % MCV (80.0-100.0) fL MCH (25.0-35.0) pg MCHC (31.0-37.0) g/dL RDW (11.5-15.5) % Plt Count (150-450) k/uL Neutrophils # (1.3-7.7) k/uL Monocytes # (0-1.0) k/uL Sodium (137-145) mmol/L BUN (9-20) mg/dL Glucose (74-99) mg/dL Plasma Lactic Acid Milad 3.2 H* (0.7-2.0) mmol/L Calcium (8.4-10.2) mg/dL Alkaline Phosphatase (38-126) U/L Total Protein (6.3-8.2) g/dL Albumin (3.5-5.0) g/dL Lipase (23-300) U/L Urine Protein Trace H (Negative) Urine Blood Trace H (Negative) Ur Leukocyte Esterase (Negative) Urine RBC 23 H (0-5) /hpf Urine WBC 9 H (0-5) /hpf Urine Bacteria (None) /hpf Urine Mucus Occasional H (None) /hpf Crossmatch See Detail Thrombosis Risk Factor Assmnt - DVT/VTE Prophylaxis DVT/VTE Prophylaxis: Mechanical Prophylaxis ordered Assessment and Plan Assessment: Lower abdominal pain likely malignancy related and already left urinary bladder. Metastatic bladder cancer involving lung liver and osseous Possible urinary tract infection Anemia due to malignancy and recent immunotherapy. Hemoglobin 6.7 on admission. Hemoglobin on 08/19/2023 8.2 Lactic acidosis 3.2 on admission Hypovolemic hyponatremia Elevated alk phos level likely metastatic osseous lesions. Microcytic anemia rule out iron deficiency Paroxysmal atrial fibrillation on anticoagulation with Eliquis. COPD not in exacerbation Moderate protein calorie malnutrition GI and DVT prophylaxis with PPI and SCDs. Plan: Patient will be continued on IV hydration with normal saline. Will be transfused with 1 unit of PRBC and monitor H&H. Continue with antibiotics ceftriaxone and follow-up urine culture. Due to RBCs in the urinalysis, Eliquis is on hold and monitor hemoglobin level. Continue with pain management and other home medications including metoprolol and amiodarone. Continue with DuoNebs and follow-up closely. Oncology was consulted for evaluation. Prognosis guarded at this time. Time with Patient: Greater than 30
[2023-09-18] MEDS: SODIUM CHLORIDE 0.9% 1,000 ML IV SCH (00:01)
[2023-09-18] MEDS: IPRATROPIUM-ALBUTEROL 3 ML NEB INHALATION PRN (07:49)
[2023-09-18] MEDS: SYMBICORT 160-4.5 MCG INHALER INHALATION PRN (07:49)
[2023-09-18 08:57] LABS: Basophils # (A) 0.07 X 10*3/uL (0.00-0.10); Basophils % (A) 0.3 %; Eosinophils # (A) 0.67 X 10*3/uL (0.04-0.35); HCT 26.6 % (39.6-50.0); HGB 7.7 g/dL (13.0-17.0); Lymphocytes # (A) 0.71 X 10*3/uL (0.90-5.00); Lymphocytes % (A) 3.2 %; MCH 21.9 pg (27.0-32.0); MCHC 28.9 g/dL (32.0-37.0); MCV 75.6 FL (80.0-97.0); Mean Platelet Volume 10.2 FL (9.5-12.2); Monocytes # (A) 2.07 X 10*3/uL (0.20-1.00); Monocytes % (A) 9.2 %; NRBC Per 100 WBC 0 X 10*3/uL (0.00-0.01); Neutrophils # (A) 18.66 X 10*3/uL (1.80-7.70); Neutrophils % (A) 83.1 %; Platelet Count 543 X 10*3/uL (140-440); RBC 3.52 X 10*6/uL (4.40-5.60); RDW 20.3 % (11.5-14.5); WBC 22.44 X 10*3/uL (4.50-10.00)
[2023-09-18] MEDS: PANTOPRAZOLE 40 MG/10 ML VIAL IV SCH (10:16)
[2023-09-18] MEDS: AMIODARONE 200 MG TAB PO SCH (10:17)
[2023-09-18] MEDS: SENNOSIDES-DOCUSATE SODIUM 1 EACH TAB PO SCH (12:35)
[2023-09-18 14:40] VITALS: BMI 17.1
--- NOTE | 2023-09-18 15:07 | P.CONS ---
History of Present Illness - Reason for Consult Consult date: 09/18/23 metastatic bladder carcinoma Requesting physician: Ilya Stoddard - Chief Complaint weakness - History of Present Illness Mr. Jimenez is a 63-year-old male pt of Dr. Alberto Hankins, currently receiving treatment for metastatic bladder carcinoma. Pt presented December 2022 with c/o dysuria and progressive hematuria. Presented to [facility] for additional management. CT urogram on 01/18/2023 noted thickening of the left lateral urinary bladder wall measuring 1.7 cm with noted stranding extending into the left pelvic sidewall and loss of fat plane between the prostate and urinary bladder. Prominent left external iliac lymph nodes measuring 1 cm and 2.2 cm were noted with subcentimeter left inguinal lymph nodes. CT chest noted no evidence of distant metastatic disease with discoid atelectasis/parenchymal scarring in the right lower lobe likely secondary to remote granulomatous disease. He underwent TURBT and attempted left-sided ureteral stent insertion . This visualized mildly enlarged prostate that was nonobstructive with a large papillary tumor involving the left trigone and extending along the left lateral wall. This was resected down to the muscle with an area of resection of 8 cm. Left ureteral orifice could not be identified for stent placement. Pathology of the resected bladder mass noted invasive high-grade papillary urothelial carcinoma invading the muscularis propria smooth muscle with lymphovascular invasion being present. Staging CT CAP 04/10/2023 noted segment 3 liver lesion, left lower lobe pulmonary nodule, and bilateral inguinal lymphadenopathy that was suspicious for metastatic disease. Tissue NGS revealed RB1, KRAS, TP53, and TERT mutations with low TMB and MSI negative. MRI of the abdomen 05/06/2023 did not reveal evidence of liver metastases, did note significant retroperitoneal lymphadenopathy along with 7mm pulmonary nodule concerning for metastatic disease. Clinical course was complicated by scrotal pain with ultrasound noting small hydroceles but no evidence of epididymitis or orchitis along with hypertension, which prevented him from proceeding with biopsy of the retroperitoneal lymph node seen on MRI of the abdomen. Due to concern for significant delay in treatment, systemic treatment was initiated with cycle 1 of pembrolizumab/enfortumab vedotin on 05/23/2023. He was hospitalized for left obstructive uropathy secondary to disease along with acute hypoxic respiratory failure due to influenza A. He was transferred to [facility] and underwent left nephrostomy tube placement on 06/01/2023 and had mechanical intubation from 06/01/2023 through 06/03/2023. After leaving [facility], he was readmitted at [facility] on 06/06/2023 for atrial fibrillation with RVR and was started on metoprolol along with prophylactic Eliquis which did originally provide rate control. After restarting cycle 2, he was again hospitalized at [facility] for atrial fibrillation with RVR and was sta rted on amiodarone, which appears to have provided both rhythm and rate control. He completed cycle 4 of treatment on 08/08/2023. PET/CT 08/09/2023 noted FDG avid lesions in the right supraclavicular region, mediastinum, pulmonary nodules, multiple liver nodules, and left pelvic lymphadenopathy concerning for malignancy. Plan was at that time was to proceed with cycles 5 and 6 of Keytruda/Padcev and then obtain a short-term PET/CT. Patient has completed cycle 5. Due to start cycle 6 this week He received IV iron on August 29, and September 12. Patient came to hospital because he felt "sluggish", also reporting an upset stomach, abdominal bloating intermittently, periumbilical discomfort. States that he has no energy. He is status post 1 unit of PRBCs without a significant change in his energy levels. He reports that he has done an enema x 3 over the past several days for constipation, had some stool. States he cannot have a BM without using an enema or medications. He does NOT take any medications regularly to promote BM/prevent constipation. His appetite is decreased because of abdominal discomfort, he is having "hot flashes" at night. Left nephrostomy tube is draining, he denies any pain at tube insertion, redness or purulence in the urine. No fevers, nausea or vomiting, shortness of breath or chest pain, swelling in the legs. Review of Systems 10 point review of systems is negative except as stated in HPI 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 left nephrostomy tube (2023) Past Anesthesia/Blood Transfusion Reactions: No Reported Reaction Past Psychological History: No Psychological Hx Reported Smoking Status: Former smoker Past Alcohol Use History: None Reported Past Drug Use History: None Reported - Past Family History Father Family Medical History: Cancer Additional Family Medical History / Comment(s): lung cancer, smoker Medications and Allergies Home Medications Medication Instructions Recorded Confirmed Type Ondansetron [Zofran] 4 mg PO Q4H PRN 05/25/23 09/17/23 History HYDROcodone/APAP 10-325MG [[place] 1 tab PO Q4HR PRN 06/06/23 09/17/23 History 10-325] Apixaban [Eliquis] 2.5 mg PO BID 07/01/23 09/17/23 History Budesonide/Formoterol Fumarate 2 puff INHALATION RT-BID PRN 07/01/23 09/17/23 History [Symbicort 160-4.5 Mcg Inhaler] Ipratropium-Albuterol Nebulize 3 ml INHALATION RT-QID PRN 07/01/23 09/17/23 History [Duoneb 0.5 mg-3 mg/3 ml Soln] Metoprolol Tartrate [Lopressor] 50 mg PO TID 30 Days #90 tab 07/06/23 09/17/23 Rx Amiodarone [Cordarone] 200 mg PO DAILY 07/19/23 09/17/23 History Albuterol Sulfate [Albuterol 2 puff PO RT-Q4H PRN 09/17/23 09/17/23 History Sulfate Hfa] Allergies Allergy/AdvReac Type Severity Reaction Status Date / Time Iodinated Contrast Media Allergy Neck Verified 09/17/23 09:32 swelling Physical Exam Vitals: Vital Signs Temp Pulse Pulse Resp BP BP Pulse Ox 09/18/23 07:58 86 09/18/23 07:52 98 09/18/23 07:49 80 09/18/23 07:31 98.1 F 83 16 93/57 97 09/18/23 02:00 98.2 F 64 16 113/67 97 09/17/23 19:12 99 F 58 L 16 97/59 98 09/17/23 16:01 97.8 F 72 18 124/71 97 09/17/23 15:00 74 15 109/69 97 09/17/23 14:15 98.5 F 82 20 130/62 95 09/17/23 12:34 78 18 139/69 97 09/17/23 11:30 97.8 F 70 18 123/73 99 09/17/23 11:15 97.7 F 65 18 106/66 98 09/17/23 11:10 97.7 F 67 18 114/65 98 09/17/23 11:05 97.7 F 67 18 105/64 97 09/17/23 10:58 97.7 F 68 18 118/68 97 09/17/23 09:39 69 18 94/61 96 Intake and Output 09/17/23 09/18/23 09/18/23 22:59 06:59 14:59 Intake Total 240 Output Total 475 400 Balance -235 -400 Intake: Oral 240 Output: Drainage 400 Thigh 400 Urine 475 Other: Voiding Method Urinal Ileal Conduit (Left) # Voids 400 - Constitutional General appearance: cooperative, no acute distress, thin - EENT Eyes: anicteric sclerae, EOMI ENT: hearing grossly normal - Respiratory Respiratory: bilateral: CTA - Cardiovascular Rhythm: irregularly irregular Heart sounds: normal: S1, S2 Abnormal Heart Sounds: no systolic murmur, no diastolic murmur, no rub, no S3 Gallop, no S4 Gallop, no click, no other leg Peripheral Edema: bilateral: None - Gastrointestinal General gastrointestinal: no absent bowel sounds, no decreased bowel sounds, no distended, no hepatomegaly, no hyperactive bowel sounds, normal bowel sounds, no organomegaly, no rigid, no scaphoid, soft, no splenomegaly, tenderness, no umbilical hernia, no ventral hernia - Integumentary Integumentary: pale - Neurologic Neurologic: CNII-XII intact - Musculoskeletal Musculoskeletal: generalized weakness - Psychiatric Psychiatric: A&O x's 3, appropriate affect, intact judgment & insight Results CBC & Chem 7: 09/18/23 05:13 09/17/23 07:02 Labs: Abnormal Lab Results - Last 24 Hours (Table) 09/17/23 09/17/23 09/17/23 Range/Units 07:02 08:30 10:10 Urine Protein Trace H Trace H (Negative) Urine Blood Trace H Trace H (Negative) Ur Leukocyte Esterase Moderate H (Negative) Urine RBC 23 H (0-5) /hpf Urine WBC 7 H 9 H (0-5) /hpf Urine Bacteria Rare H (None) /hpf Urine Mucus Rare H Occasional H (None) /hpf Crossmatch See Detail CT scan - abdomen: report reviewed CT scan - pelvis: report reviewed Assessment and Plan (1) Weakness Current Visit: Yes Status: Acute Priority: High Code(s): R53.1 - WEAKNESS SNOMED Code(s): 97002294 (2) Malignant neoplasm metastatic from bladder Current Visit: Yes Status: Acute Priority: High Code(s): C67.9 - MALIGNANT NEOPLASM OF BLADDER, UNSPECIFIED SNOMED Code(s): 32524026 (3) Iron deficiency anemia Current Visit: Yes Status: Acute Priority: Medium Code(s): D50.9 - IRON DEFICIENCY ANEMIA, UNSPECIFIED SNOMED Code(s): 41460206 Plan: Weakness -Patient reporting feeling "sluggish", generalized weakness. -Multifactorial including anemia, poor appetite, possibly an infection and malignancy. -Status post 1 unit of PRBCs with no significant change. -Plans for pain and nausea control as well as bowel regimen. This will allow patient to consume some nutrition. See how he does over the next 24 hours -Infection work up pending. Empiric abx ordered Metastatic bladder carcinoma -CT of the abdomen pelvis without contrast reporting basilar pulmonary nodules, hepatomegaly with areas of ill-defined, decreased attenuation suspicious for metastatic disease. Left-sided nephrostomy tube, no hydronephrosis, renal mass. Urinary bladder mass encompassing most of the left side of the bladder. Some free fluid is noted within the pelvis, there is mention of some scattered sclerotic bony metastases. -Plan to complete 6 cycles with short term imaging f/u. Pt will complete cycle 6 in the next 1-2 weeks. Iron deficient anemia -Patient is status post 1 unit of PRBCs for hemoglobin of 6.7 on admit. Appropriate increase in hemoglobin to 7.7 today. No significant change and patient's complaints of fatigue. -Patient has been receiving parenteral iron monthly in the office. His last doses of venofer were on 08/29, 09/05 and 09/12. -Transfuse for Hgb <7 Doctor attests: I performed a history and physical examination of this patient, developed impression and plan of care. Discussed with dictator. I agree with dictators note, documented as a scribe.
[2023-09-19 00:09] LABS: % Iron Saturation 9.32 (15.00-50.00); BUN/Creat Ratio 17.86 Ratio (12.00-20.00); Blood Urea Nitrogen 12.5 mg/dL (9.0-27.0); Calcium 8.5 mg/dL (8.7-10.3); Carbon Dioxide 19.7 mmol/L (21.6-31.8); Chloride 100 mmol/L (96-109); Glucose 98 mg/dL (70-110); Iron 11 UG/DL (65-175); Potassium 4.7 mmol/L (3.5-5.5); Sodium 132 mmol/L (135-145); Total Iron Binding Capacity 118 UG/DL (228-460)
[2023-09-19] MEDS: MAGNESIUM HYDROXIDE 2,400 MG/30 ML CUP PO PRN (04:16)
--- NOTE | 2023-09-19 05:54 | P.PN ---
Subjective Progress Note Date: 09/18/23 Patient is a 63-year-old male with a past medical history of atrial fibrillation on anticoagulation with Eliquis, COPD, prior history of smoking and bladder cancer diagnosed in January 2023 status post tumor resection and left nerve damage tube placement currently undergoing immunotherapy last therapy 2 weeks ago and missed most recent therapy due to urinary tract infection. Patient presents today with complaints of abdominal pain mainly in the lower abdomen. Patient was seen at [facility] and advised to call Sunday as his physician was not in office. Patient has been having increasing abdominal discomfort, distention and decreased appetite. Patient is also complaining of night sweats but denies any subjective fevers at home. Urine is noted in the nephrostomy tube. No complaints of chest pain or shortness of breath. No nausea nausea vomiting or diarrhea. No cough or sputum production. CT of the abdomen pelvis showed left-sided nephrostomy tube in place without evidence for hydronephrosis. Metastatic disease to the liver lung scan and osseous structures. Wall thickening within mass left urinary bladder. Laboratory data showed WBC 19.6 hemoglobin 6.7 and platelets 530 MCV 77.3 Sodium 133 potassium 5.1 chloride 103 bicarb is 22 BUN 21 and creatinine 0.73 and blood sugar 110 and lactic acid 3.2 and calcium 8.3. Alk phos 363 AST 44 ALT 33 and lipase 19. Urinalysis showed clear with trace protein and trace blood nitrate negative and initial urinalysis showed moderate leukocyte Estrace and WBC 7. 09/18/2023 Patient is seen in follow-up today with oncology following. Maintained on with concerns of possible infection in the urine. Patient was recently hospitalized at [facility] status post urinary ostomy tube in the left. Patient reports not much of an appetite with continued abdominal discomfort continue with nausea medications and also add bowel regimen as patient has not had a bowel movement in a few days. Current chemotherapy treatment on hold and being discussed with oncology with plans for possible resumption of treatment plan within the next 1 to 2 weeks. Encouraged to increase activity as tolerated and we will follow-up on labs. Review of systems: Constitutional: No reports of fatigue, fever, or chills Cardiovascular: No reports of chest pain or palpitations Respiratory: No reports of shortness of breath or cough GI: No reports of nausea, vomiting, or diarrhea, reports abdominal discomfort and has not had a bowel movement in a few days : No reports of dysuria or retention Neurovascular: reports of generalized weakness All medications have been reviewed PHYSICAL EXAMINATION: Patient is lying in the bed , no acute distress, awake alert and oriented. Patient is weak and thin build. HEENT: Normocephalic. Neck is supple. Pupils reactive. Nostrils clear. Oral cavity is moist. Neck reveals no JVD, carotid bruits, or thyromegaly. CHEST EXAMINATION: Trachea is central. Symmetrical expansion. Lung meehan clear to auscultation and percussion. CARDIAC: Normal S1, S2 with no gallops. No murmurs ABDOMEN: Soft. Bowel sounds present, left nephrostomy tube in place. No organomegaly. No abdominal bruits. Extremities: reveal no edema. No clubbing or cyanosis Neurologically awake, alert, oriented x3 with well-coordinated movements. No gross focal deficits noted Skin: No rash or skin lesions. Psychiatric: Cooperative. Non-suicidal Musculoskeletal: No joint swelling or deformity. Assessment: Lower abdominal pain likely malignancy related and already left urinary bladder. Metastatic bladder cancer involving lung liver and osseous Possible urinary tract infection, present on admission, recent left nephrostomy tube placed at [facility] Anemia due to malignancy and recent immunotherapy. Hemoglobin 6.7 on admission. Hemoglobin on 08/19/2023 8.2 Lactic acidosis 3.2 on admission, improving Hypovolemic hyponatremia due to poor oral intake Elevated alk phos level likely metastatic osseous lesions. Microcytic anemia rule out iron deficiency Paroxysmal atrial fibrillation on anticoagulation with Eliquis. COPD not in exacerbation Moderate protein calorie malnutrition with a BMI of 17.2 GI and DVT prophylaxis with PPI and SCDs. Full code Plan: Patient will be continued on IV hydration with normal saline. Was transfused with 1 unit of PRBC and hemoglobin above 8 Continue with antibiotics ceftriaxone and follow-up urine culture. Due to RBCs in the urinalysis, Eliquis is on hold and monitor hemoglobin level. Continue with pain management and other home medications including metoprolol and amiodarone. Continue with DuoNebs and follow-up closely. Oncology following. Plan is for patient to follow-up outpatient to discuss treatment plan resuming in the next 1 to 2 weeks for his next cycle Due to multiple complex medical issues, prognosis is guarded at this time. The impression and plan of care has been dictated by Jaimie Mesa, Nurse Practitioner as directed. Dr. Anna MD I have performed a history and examination and MDM of this patient, discussed the same with the dictator, and agree with the dictator's assessment and plan as written ,documented as a scribe. Based on total visit time, I have performed more than 50% of the visit. Objective - Vital Signs Vital signs: Vital Signs Temp 97.6 F 09/18/23 12:47 Pulse 57 L 09/18/23 12:47 Resp 14 09/18/23 12:47 BP 116/69 09/18/23 12:47 Pulse Ox 98 09/18/23 12:47 FiO2 Intake & Output 09/17/23 09/18/23 09/18/23 18:59 06:59 18:59 Intake Total 512 Output Total 200 675 350 Balance 312 -675 -350 Weight 58.967 kg Intake: Oral 240 Blood Product 272 Rc Pheresis As3 Unit 272 [id number] Output: Drainage 400 Thigh 400 Urine 200 275 350 Other: Voiding Method Urinal Urinal Ileal Conduit (Left) Ileal Conduit (Left) # Voids 400 - Labs CBC & Chem 7: 09/18/23 05:13 09/18/23 05:13 Labs: Abnormal Lab Results - Last 24 Hours (Table) 09/17/23 09/18/23 Range/Units 08:30 05:13 WBC 22.44 H (4.50-10.00) X 10*3/uL RBC 3.52 L (4.40-5.60) X 10*6/uL Hgb 7.7 L (13.0-17.0) g/dL Hct 26.6 L (39.6-50.0) % MCV 75.6 L (80.0-97.0) FL MCH 21.9 L (27.0-32.0) pg MCHC 28.9 L (32.0-37.0) g/dL RDW 20.3 H (11.5-14.5) % Plt Count 543 H (140-440) X 10*3/uL Immature Gran # 0.26 H (0.00-0.04) X 10*3/uL Neutrophils # 18.66 H (1.80-7.70) X 10*3/uL Lymphocytes # 0.71 L (0.90-5.00) X 10*3/uL Monocytes # 2.07 H (0.20-1.00) X 10*3/uL Eosinophils # 0.67 H (0.04-0.35) X 10*3/uL Crossmatch See Detail
[2023-09-19 08:50] LABS: Basophils # (A) 0.05 X 10*3/uL (0.00-0.10); Basophils % (A) 0.2 %; Eosinophils # (A) 0.47 X 10*3/uL (0.04-0.35); Eosinophils % (A) 2.2 %; HCT 25.5 % (39.6-50.0); HGB 7.4 g/dL (13.0-17.0); Lymphocytes # (A) 0.52 X 10*3/uL (0.90-5.00); Lymphocytes % (A) 2.5 %; MCH 22.3 pg (27.0-32.0); MCV 76.8 FL (80.0-97.0); Mean Platelet Volume 10.3 FL (9.5-12.2); Monocytes # (A) 2.23 X 10*3/uL (0.20-1.00); Monocytes % (A) 10.5 %; NRBC Per 100 WBC 0 X 10*3/uL (0.00-0.01); Neutrophils # (A) 17.68 X 10*3/uL (1.80-7.70); Neutrophils % (A) 83.4 %; Platelet Count 528 X 10*3/uL (140-440); RBC 3.32 X 10*6/uL (4.40-5.60); RDW 20.5 % (11.5-14.5); WBC 21.21 X 10*3/uL (4.50-10.00)
[2023-09-19 09:06] LABS: BUN/Creat Ratio 18.57 Ratio (12.00-20.00); Calcium 8.1 mg/dL (8.7-10.3); Carbon Dioxide 19.1 mmol/L (21.6-31.8); Chloride 100 mmol/L (96-109); Glucose 97 mg/dL (70-110); Magnesium 1.8 mg/dL (1.5-2.4); Potassium 4.7 mmol/L (3.5-5.5); Sodium 133 mmol/L (135-145)
--- NOTE | 2023-09-19 14:02 | P.PN ---
Subjective Progress Note Date: 09/19/23 Principal diagnosis: abd pain, constipation, dehydration In f/u pt reports he had a rough night, his urostomy was leaking at the insertion site in his back, his abd felt really warm last night but, that has went away. He ate a breakfast of pancakes, his lower abd is less sore then yesterday. Passing flatus, small BM yesterday, formed stool, denied black or bloody stool. Objective - Vital Signs Vital signs: Vital Signs Temp 97.6 F 09/19/23 12:54 Pulse 68 09/19/23 12:54 Resp 16 09/19/23 12:54 BP 113/65 09/19/23 12:54 Pulse Ox 97 09/19/23 12:54 FiO2 Intake & Output 09/18/23 09/19/23 09/19/23 18:59 06:59 18:59 Intake Total 950 Output Total 600 300 Balance 350 -300 Weight 58.967 kg Intake: Intake, IV Titration 950 Amount Sodium Chloride 0.9% 1, 900 000 ml @ 75 mls/hr IV . [id number] SUGAR Rx#:[id number] cefTRIAXone 1 gm In 50 Sodium Chloride 0.9% 50 ml @ 100 mls/hr IVPB Q24HR SUGAR Rx#:[id number] Output: Drainage 250 Thigh 250 Urine 350 300 Other: Voiding Method Urinal Urinal Urinal Ileal Conduit (Left) Ileal Conduit (Left) Ileal Conduit (Left) # Voids 2 1 - Constitutional General appearance: Present: cooperative, no acute distress, thin - EENT Eyes: Present: anicteric sclerae, EOMI ENT: Present: hearing grossly normal - Respiratory Details: resp even and unlabored - Cardiovascular Details: sin warm and dry - Peripheral edema leg Peripheral Edema: bilateral: None - Gastrointestinal Gastrointestinal Comment(s): lower abd tenderness to palpation much less than yesterday, firmness palpated at the umbilicus, no rebound General gastrointestinal: Present: soft - Integumentary Integumentary: Present: normal - Neurologic Neurologic: Present: CNII-XII intact - Musculoskeletal Musculoskeletal: Present: generalized weakness, strength equal bilaterally - Psychiatric Psychiatric: Present: A&O x's 3, appropriate affect, intact judgment & insight - Labs CBC & Chem 7: 09/19/23 04:44 09/19/23 04:44 Labs: Abnormal Lab Results - Last 24 Hours (Table) 09/18/23 09/19/23 09/19/23 Range/Units 05:13 04:44 04:44 WBC 21.21 H (4.50-10.00) X 10*3/uL RBC 3.32 L (4.40-5.60) X 10*6/uL Hgb 7.4 L (13.0-17.0) g/dL Hct 25.5 L (39.6-50.0) % MCV 76.8 L (80.0-97.0) FL MCH 22.3 L (27.0-32.0) pg MCHC 29.0 L (32.0-37.0) g/dL RDW 20.5 H (11.5-14.5) % Plt Count 528 H (140-440) X 10*3/uL Immature Gran # 0.26 H (0.00-0.04) X 10*3/uL Neutrophils # 17.68 H (1.80-7.70) X 10*3/uL Lymphocytes # 0.52 L (0.90-5.00) X 10*3/uL Monocytes # 2.23 H (0.20-1.00) X 10*3/uL Eosinophils # 0.47 H (0.04-0.35) X 10*3/uL Sodium 132 L 133 L (135-145) mmol/L Carbon Dioxide 19.7 L 19.1 L (21.6-31.8) mmol/L Anion Gap 12.30 H 13.90 H (4.00-12.00) mmol/L Calcium 8.5 L 8.1 L (8.7-10.3) mg/dL Iron 11 L (65-175) UG/DL TIBC 118 L (228-460) UG/DL % Saturation 9.32 L (15.00-50.00) Transferrin 84.2 L (204.0-354.0) mg/dL Microbiology - Last 24 Hours (Table) 09/17/23 09:20 Blood Culture - Preliminary Blood 09/17/23 09:05 Blood Culture - Preliminary Blood Assessment and Plan (1) Weakness Current Visit: Yes Status: Acute Priority: High Code(s): R53.1 - WEAKNESS SNOMED Code(s): 43859225 (2) Malignant neoplasm metastatic from bladder Current Visit: Yes Status: Acute Priority: High Code(s): C67.9 - MALIGNANT NEOPLASM OF BLADDER, UNSPECIFIED SNOMED Code(s): 63686289 (3) Iron deficiency anemia Current Visit: Yes Status: Acute Priority: Medium Code(s): D50.9 - IRON DEFICIENCY ANEMIA, UNSPECIFIED SNOMED Code(s): 77087661 Plan: Weakness -Patient reporting feeling "sluggish", generalized weakness. -Multifactorial including anemia, poor appetite, possibly an infection and malignancy. -Status post 1 unit of PRBCs for Hgb 6.7, no 7.4. Pt denies any improvement in his weakness at this time. -Plans for pain, nausea control and bowel regimen in place. Pt did eat fairly well this AM per him. Cont plan of care as ordered -Infection work up pending. Empiric abx ordered Metastatic bladder carcinoma -CT of the abdomen pelvis without contrast reporting basilar pulmonary nodules, hepatomegaly with areas of ill-defined, decreased attenuation suspicious for metastatic disease. Left-sided nephrostomy tube, no hydronephrosis, renal mass. Urinary bladder mass encompassing most of the left side of the bladder. Some free fluid is noted within the pelvis, there is mention of some scattered sclerotic bony metastases. -Plan to complete 6 cycles with short term imaging f/u. Pt will complete cycle 6 in the next 1-2 weeks. Constipation -multifactorial including metastatic disease, narcotic induced. -Sched and PRN meds -miralax daily added today -pt is passing flatus -Hope that once pt has a significant BM abd and nausea will be better Iron deficient anemia -Patient is status post 1 unit of PRBCs for hemoglobin of 6.7 on admit. Hgb 7.4 today. No significant change and patient's complaints of fatigue. CBC in AM -Patient has been receiving parenteral iron monthly in the office. His last doses of venofer were on 08/29, 09/05 and 09/12. -Transfuse for Hgb <7 Doctor attests: I performed a history and physical examination of this patient, developed impression and plan of care. Discussed with dictator. I agree with dictators note, documented as a scribe.
[2023-09-19] MEDS: polyethylene glycoL 3350 17 GM POWD.PACK PO SCH (15:33)
--- NOTE | 2023-09-20 05:25 | P.PN ---
Subjective Progress Note Date: 09/19/23 Patient is a 63-year-old male with a past medical history of atrial fibrillation on anticoagulation with Eliquis, COPD, prior history of smoking and bladder cancer diagnosed in January 2023 status post tumor resection and left nerve damage tube placement currently undergoing immunotherapy last therapy 2 weeks ago and missed most recent therapy due to urinary tract infection. Patient presents today with complaints of abdominal pain mainly in the lower abdomen. Patient was seen at [facility] and advised to call Sunday as his physician was not in office. Patient has been having increasing abdominal discomfort, distention and decreased appetite. Patient is also complaining of night sweats but denies any subjective fevers at home. Urine is noted in the nephrostomy tube. No complaints of chest pain or shortness of breath. No nausea nausea vomiting or diarrhea. No cough or sputum production. CT of the abdomen pelvis showed left-sided nephrostomy tube in place without evidence for hydronephrosis. Metastatic disease to the liver lung scan and osseous structures. Wall thickening within mass left urinary bladder. Laboratory data showed WBC 19.6 hemoglobin 6.7 and platelets 530 MCV 77.3 Sodium 133 potassium 5.1 chloride 103 bicarb is 22 BUN 21 and creatinine 0.73 and blood sugar 110 and lactic acid 3.2 and calcium 8.3. Alk phos 363 AST 44 ALT 33 and lipase 19. Urinalysis showed clear with trace protein and trace blood nitrate negative and initial urinalysis showed moderate leukocyte Estrace and WBC 7. 09/18/2023 Patient is seen in follow-up today with oncology following. Maintained on with concerns of possible infection in the urine. Patient was recently hospitalized at [facility] status post urinary ostomy tube in the left. Patient reports not much of an appetite with continued abdominal discomfort continue with nausea medications and also add bowel regimen as patient has not had a bowel movement in a few days. Current chemotherapy treatment on hold and being discussed with oncology with plans for possible resumption of treatment plan within the next 1 to 2 weeks. Encouraged to increase activity as tolerated and we will follow-up on labs. 09/19/2023 Patient is seen in follow-up this morning currently sitting up at the side of the bed reports continuing to have generalized weakness and abdominal pain. Recommend to continue with antinausea medications and bowel regimen that is scheduled as patient is having some constipation. Encouraged to increase activity as tolerated and frequent walking at least 3 times daily and sitting up in the chair more often. Oncology following as well and will follow-up outpatient regarding next treatment. Patient reported he had some leaking around his urostomy tube on the left. Dressing was changed and there is no drainage noted on exam. Site appears clean and dry with no significant redness or swelling noted. Patient reports the urinary bag was full. Patient is afebrile with no reports of chest pain or shortness of breath. Review of systems: Constitutional: No reports of fatigue, fever, or chills Cardiovascular: No reports of chest pain or palpitations Respiratory: No reports of shortness of breath or cough GI: No reports of nausea, vomiting, or diarrhea, reports abdominal discomfort a nd has not had a bowel movement in a few days : No reports of dysuria or retention Neurovascular: reports of generalized weakness All medications have been reviewed PHYSICAL EXAMINATION: Patient is sitting up at the side of the bed , no acute distress, awake alert and oriented. Patient is weak and thin build. Cachectic with muscle wasting noted HEENT: Normocephalic. Neck is supple. Pupils reactive. Nostrils clear. Oral cavity is moist. Neck reveals no JVD, carotid bruits, or thyromegaly. CHEST EXAMINATION: Diminished breath sounds bilaterally otherwise trachea is central. Symmetrical expansion. Lung meehan clear to auscultation and percussion. CARDIAC: Normal S1, S2 with no gallops. No murmurs ABDOMEN: Soft. Bowel sounds present, left nephrostomy tube in place and dressing is dry and intact with no significant redness or drainage noted.. No organomegaly. No abdominal bruits. Extremities: reveal no edema. No clubbing or cyanosis Neurologically awake, alert, oriented x3 with well-coordinated movements. No gross focal deficits noted, diffusely weak Skin: No rash or skin lesions. Psychiatric: Cooperative. Non-suicidal Musculoskeletal: No joint swelling or deformity. Assessment: Lower abdominal pain likely malignancy related, left urinary bladder mass. 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 Hemoglobin 6.7 on admission. Hemoglobin on 08/19/2023 8.2 Lactic acidosis 3.2 on admission, improving Hypovolemic hyponatremia due to poor oral intake Elevated alk phos level likely metastatic osseous lesions. Microcytic anemia rule out iron deficiency Paroxysmal atrial fibrillation on anticoagulation with Eliquis. COPD not in exacerbation Moderate protein calorie malnutrition with a BMI of 17.2 GI and DVT prophylaxis with PPI and SCDs. Full code Plan: Patient will be continued on IV hydration with normal saline. Was transfused with 1 unit of PRBC and hemoglobin above 8 Continue with antibiotics ceftriaxone and follow-up urine culture. Due to RBCs in the urinalysis, Eliquis is on hold and monitor hemoglobin level. Continue with pain management and other home medications including metoprolol and amiodarone. Patient with generalized weakness recommend PT/OT therapy evaluation Patient has not had a bowel movement and will continue with bowel regimen with scheduled and as needed along with antinausea medications Continue with DuoNebs and follow-up closely. Oncology following. Plan is for patient to follow-up outpatient to discuss treatment plan resuming in the next 1 to 2 weeks for his next cycle Due to multiple complex medical issues, prognosis is guarded at this time. The impression and plan of care has been dictated by Jaimie Mesa Nurse Pract itioner as directed. Dr. Anna MD I have performed a history and examination and MDM of this patient, discussed the same with the dictator, and agree with the dictator's assessment and plan as written ,documented as a scribe. Based on total visit time, I have performed more than 50% of the visit. Objective - Vital Signs Vital signs: Vital Signs Temp 98.1 F 09/20/23 01:15 Pulse 61 09/20/23 01:15 Resp 16 09/20/23 01:15 BP 131/66 09/20/23 01:15 Pulse Ox 96 09/20/23 01:15 FiO2 Intake & Output 09/19/23 09/19/23 09/20/23 06:59 18:59 06:59 Output Total 300 400 Balance -300 -400 Output: Urine 300 400 Other: Voiding Method Urinal Urinal Urinal Ileal Conduit (Left) Ileal Conduit (Left) Ileal Conduit (Left) # Voids 2 1 # Bowel Movements 1 1 - Labs CBC & Chem 7: 09/19/23 04:44 09/19/23 04:44 Labs: Abnormal Lab Results - Last 24 Hours (Table) 09/19/23 09/19/23 Range/Units 04:44 04:44 WBC 21.21 H (4.50-10.00) X 10*3/uL RBC 3.32 L (4.40-5.60) X 10*6/uL Hgb 7.4 L (13.0-17.0) g/dL Hct 25.5 L (39.6-50.0) % MCV 76.8 L (80.0-97.0) FL MCH 22.3 L (27.0-32.0) pg MCHC 29.0 L (32.0-37.0) g/dL RDW 20.5 H (11.5-14.5) % Plt Count 528 H (140-440) X 10*3/uL Immature Gran # 0.26 H (0.00-0.04) X 10*3/uL Neutrophils # 17.68 H (1.80-7.70) X 10*3/uL Lymphocytes # 0.52 L (0.90-5.00) X 10*3/uL Monocytes # 2.23 H (0.20-1.00) X 10*3/uL Eosinophils # 0.47 H (0.04-0.35) X 10*3/uL Sodium 133 L (135-145) mmol/L Carbon Dioxide 19.1 L (21.6-31.8) mmol/L Anion Gap 13.90 H (4.00-12.00) mmol/L Calcium 8.1 L (8.7-10.3) mg/dL Microbiology - Last 24 Hours (Table) 09/17/23 09:20 Blood Culture - Preliminary Blood 09/17/23 09:05 Blood Culture - Preliminary Blood
[2023-09-20] MEDS: MORPHINE SULFATE 4 MG/ML SYRINGE IVP PRN (10:13)
[2023-09-20] MEDS: SUCRALFATE 1 GM TAB PO SCH (10:13)
[2023-09-20 10:40] LABS: HGB 7.4 g/dL (13.0-17.0); MCH 22.1 pg (27.0-32.0); MCHC 28.5 g/dL (32.0-37.0); MCV 77.6 FL (80.0-97.0); NRBC Per 100 WBC 0 X 10*3/uL (0.00-0.01); Platelet Count 518 X 10*3/uL (140-440); RBC 3.35 X 10*6/uL (4.40-5.60); RDW 20.7 % (11.5-14.5)
[2023-09-20 10:41] LABS: Basophils # (A) 0.06 X 10*3/uL (0.00-0.10); Basophils % (A) 0.3 %; Eosinophils # (A) 0.62 X 10*3/uL (0.04-0.35); Eosinophils % (A) 2.9 %; Lymphocytes # (A) 0.81 X 10*3/uL (0.90-5.00); Lymphocytes % (A) 3.8 %; Monocytes % (A) 9.9 %; Neutrophils # (A) 17.42 X 10*3/uL (1.80-7.70); Neutrophils % (A) 82.2 %
[2023-09-20 10:50] LABS: BUN/Creat Ratio 23.17 Ratio (12.00-20.00); Blood Urea Nitrogen 13.9 mg/dL (9.0-27.0); Calcium 8.4 mg/dL (8.7-10.3); Carbon Dioxide 20.2 mmol/L (21.6-31.8); Chloride 101 mmol/L (96-109); Glucose 89 mg/dL (70-110); Sodium 134 mmol/L (135-145)
--- NOTE | 2023-09-20 16:24 | P.PN ---
Subjective Progress Note Date: 09/20/23 Principal diagnosis: abd pain, constipation, dehydration In f/u pt reports pain is not controlled on norco, he cont to have upset stomach, denies vomiting. No fever, SOB, he is still urinating, nephrostomy is functioning, no reports of leakage at insertion site. Objective - Vital Signs Vital signs: Vital Signs Temp 98.4 F 09/20/23 07:36 Pulse 89 09/20/23 09:25 Resp 14 09/20/23 07:36 BP 136/72 09/20/23 07:36 Pulse Ox 97 09/20/23 09:14 FiO2 Intake & Output 09/19/23 09/20/23 09/20/23 18:59 06:59 18:59 Output Total 300 400 Balance -300 -400 Output: Urine 300 400 Other: Voiding Method Urinal Urinal Urinal Ileal Conduit (Left) Ileal Conduit (Left) Ileal Conduit (Left) # Voids 1 # Bowel Movements 1 1 - Constitutional General appearance: Present: cooperative, mild distress, thin - EENT Eyes: Present: anicteric sclerae, EOMI, poor dentition ENT: Present: hearing grossly normal - Respiratory Respiratory: bilateral: CTA - Cardiovascular Rhythm: regular Heart sounds: normal: S1, S2 Abnormal Heart Sounds: Absent: systolic murmur, diastolic murmur, rub, S3 Gallop, S4 Gallop, click, other - Peripheral edema leg Peripheral Edema: bilateral: None - Gastrointestinal General gastrointestinal: Present: soft, tenderness (lower abd, no rebound, not rigid) - Neurologic Neurologic: Present: CNII-XII intact - Musculoskeletal Musculoskeletal: Present: generalized weakness, strength equal bilaterally - Psychiatric Psychiatric: Present: A&O x's 3, appropriate affect, intact judgment & insight - Labs CBC & Chem 7: 09/20/23 06:39 09/20/23 06:39 Labs: Microbiology - Last 24 Hours (Table) 09/17/23 09:20 Blood Culture - Preliminary Blood 09/17/23 09:05 Blood Culture - Preliminary Blood Assessment and Plan (1) Weakness Current Visit: Yes Status: Acute Priority: High Code(s): R53.1 - WEAKNESS SNOMED Code(s): 11914886 (2) Malignant neoplasm metastatic from bladder Current Visit: Yes Status: Acute Priority: High Code(s): C67.9 - MALIGNANT NEOPLASM OF BLADDER, UNSPECIFIED SNOMED Code(s): 45857340 (3) Iron deficiency anemia Current Visit: Yes Status: Acute Priority: Medium Code(s): D50.9 - IRON DEFICIENCY ANEMIA, UNSPECIFIED SNOMED Code(s): 80347606 Plan: Weakness -Patient reporting feeling "sluggish", generalized weakness. -Multifactorial including anemia, poor appetite, possibly an infection and m alignancy. -Status post 1 unit of PRBCs for Hgb 6.7. Hgb stable at 7.4 today. No improvement in weakness per pt. -Plans for pain, nausea control and bowel regimen in place. Pt did not eat last night or this AM-he did eat 1/2 breakfast sandwich brought to him by caregiver. Carafate added for pt epigastric c/o. -Infection work up pending. Empiric abx ordered Metastatic bladder carcinoma -CT of the abdomen pelvis without contrast reporting basilar pulmonary nodules, hepatomegaly with areas of ill-defined, decreased attenuation suspicious for metastatic disease. Left-sided nephrostomy tube, no hydronephrosis, renal mass. Urinary bladder mass encompassing most of the left side of the bladder. Some free fluid is noted within the pelvis, there is mention of some scattered sclerotic bony metastases. -Plan to complete 6 cycles with short term imaging f/u. Pt will complete cycle 6 in the next 1-2 weeks. Constipation -multifactorial including metastatic disease, narcotic induced. -Sched and PRN meds -pt is passing flatus Abd pain, lower -Pt c/o pain in lower abd, mild tenderness on exam -[place] DC'd, IV morphine started. Will see what pt uses in 24 hours and convert to oral -Hope that once pt has a significant BM abd pain and nausea will be better Iron deficient anemia -Patient is status post 1 unit of PRBCs for hemoglobin of 6.7 on admit. Hgb 7.4 today. -Patient has been receiving parenteral iron monthly in the office. His last doses of venofer were on 08/29, 09/05 and 09/12. -Transfuse for Hgb <7
--- NOTE | 2023-09-21 05:59 | P.PN ---
Subjective Progress Note Date: 09/20/23 Patient is a 63-year-old male with a past medical history of atrial fibrillation on anticoagulation with Eliquis, COPD, prior history of smoking and bladder cancer diagnosed in January 2023 status post tumor resection and left nerve damage tube placement currently undergoing immunotherapy last therapy 2 weeks ago and missed most recent therapy due to urinary tract infection. Patient presents today with complaints of abdominal pain mainly in the lower abdomen. Patient was seen at [facility] and advised to call Sunday as his physician was not in office. Patient has been having increasing abdominal discomfort, distention and decreased appetite. Patient is also complaining of night sweats but denies any subjective fevers at home. Urine is noted in the nephrostomy tube. No complaints of chest pain or shortness of breath. No nausea nausea vomiting or diarrhea. No cough or sputum production. CT of the abdomen pelvis showed left-sided nephrostomy tube in place without evidence for hydronephrosis. Metastatic disease to the liver lung scan and osseous structures. Wall thickening within mass left urinary bladder. Laboratory data showed WBC 19.6 hemoglobin 6.7 and platelets 530 MCV 77.3 Sodium 133 potassium 5.1 chloride 103 bicarb is 22 BUN 21 and creatinine 0.73 and blood sugar 110 and lactic acid 3.2 and calcium 8.3. Alk phos 363 AST 44 ALT 33 and lipase 19. Urinalysis showed clear with trace protein and trace blood nitrate negative and initial urinalysis showed moderate leukocyte Estrace and WBC 7. 09/18/2023 Patient is seen in follow-up today with oncology following. Maintained on with concerns of possible infection in the urine. Patient was recently hospitalized at [facility] status post urinary ostomy tube in the left. Patient reports not much of an appetite with continued abdominal discomfort continue with nausea medications and also add bowel regimen as patient has not had a bowel movement in a few days. Current chemotherapy treatment on hold and being discussed with oncology with plans for possible resumption of treatment plan within the next 1 to 2 weeks. Encouraged to increase activity as tolerated and we will follow-up on labs. 09/19/2023 Patient is seen in follow-up this morning currently sitting up at the side of the bed reports continuing to have generalized weakness and abdominal pain. Recommend to continue with antinausea medications and bowel regimen that is scheduled as patient is having some constipation. Encouraged to increase activity as tolerated and frequent walking at least 3 times daily and sitting up in the chair more often. Oncology following as well and will follow-up outpatient regarding next treatment. Patient reported he had some leaking around his urostomy tube on the left. Dressing was changed and there is no drainage noted on exam. Site appears clean and dry with no significant redness or swelling noted. Patient reports the urinary bag was full. Patient is afebrile with no reports of chest pain or shortness of breath. 09/20/2023 Patient is seen in follow-up today continues to report significant pain and per oncology being adjusted to IV morphine as patient reports Eliquis not helping. Patient not tolerating much oral intake with no real appetite and reports continued nausea comfort. Recommend PT/OT therapy evaluation as patient is weak. Patient is currently afebrile with no reported chest pain or shortness of breath. No further drainage noted surrounding the nephrostomy tube. Continue with ceftriaxone for now. Review of systems: Constitutional: No reports of fatigue, fever, or chills Cardiovascular: No reports of chest pain or palpitations Respiratory: No reports of shortness of breath or cough GI: reports of nausea, no vomiting, or diarrhea, reports continued abdominal discomfort and has not had a bowel movement in a few days : No reports of dysuria or retention Neurovascular: reports of generalized weakness All medications have been reviewed PHYSICAL EXAMINATION: Patient is sitting up at the side of the bed , no acute distress, awake alert and oriented. Patient is weak and thin build. Cachectic with muscle wasting noted HEENT: Normocephalic. Neck is supple. Pupils reactive. Nostrils clear. Oral cavity is moist. Neck reveals no JVD, carotid bruits, or thyromegaly. CHEST EXAMINATION: Diminished breath sounds bilaterally otherwise trachea is brandt tral. Symmetrical expansion. Lung meehan clear to auscultation and percussion. CARDIAC: Normal S1, S2 with no gallops. No murmurs ABDOMEN: Soft. Bowel sounds present, left nephrostomy tube in place and dressing is dry and intact with no significant redness or drainage noted.. No organomegaly. No abdominal bruits. Extremities: reveal no edema. No clubbing or cyanosis Neurologically awake, alert, oriented x3 with well-coordinated movements. No gross focal deficits noted, diffusely weak Skin: No rash or skin lesions. Psychiatric: Cooperative. Non-suicidal Musculoskeletal: No joint swelling or deformity. Assessment: Lower abdominal pain likely malignancy related, left urinary bladder mass. 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 Hemoglobin 6.7 on admission. Hemoglobin on 08/19/2023 8.2 Lactic acidosis 3.2 on admission, improving Hypovolemic hyponatremia due to poor oral intake Elevated alk phos level likely metastatic osseous lesions. Microcytic anemia rule out iron deficiency, iron deficiency noted and is receiving iron transfusions outpatient with oncology Paroxysmal atrial fibrillation on anticoagulation with Eliquis. COPD not in exacerbation Moderate protein calorie malnutrition with a BMI of 17.2 GI and DVT prophylaxis with PPI and SCDs. Full code Plan: Patient will be continued on IV hydration with normal saline. Was transfused with 1 unit of PRBC and hemoglobin above 8 Continue with antibiotics ceftriaxone and follow-up urine culture. Due to RBCs in the urinalysis, Eliquis is on hold and monitor hemoglobin level. Continue with pain management and other home medications including metoprolol and amiodarone. Patient reports [place] was not helping and being transition to IV morphine per oncology Patient with generalized weakness recommend PT/OT therapy evaluation Patient has not had a bowel movement and will continue with bowel regimen with scheduled and as needed along with antinausea medications Continue with DuoNebs and follow-up closely. Oncology following. Plan is for patient to follow-up outpatient to discuss treatment plan resuming in the next 1 to 2 weeks for his next cycle Due to multiple complex medical issues, prognosis is guarded at this time. The impression and plan of care has been dictated by Jaimie Mesa, Nurse Practitioner as directed. Dr. Anna MD I have performed a history and examination and MDM of this patient, discussed the same with the dictator, and agree with the dictator's assessment and plan as written ,documented as a scribe. Based on total visit time, I have performed more than 50% of the visit. Objective - Vital Signs Vital signs: Vital Signs Temp 97.3 F L 09/21/23 01:43 Pulse 64 09/21/23 01:43 Resp 19 09/21/23 01:43 BP 124/75 09/21/23 01:43 Pulse Ox 97 09/21/23 01:43 FiO2 Intake & Output 09/20/23 09/20/23 09/21/23 06:59 18:59 06:59 Output Total 400 250 500 Balance -400 -250 -500 Output: Drainage 250 Thigh 250 Urine 400 500 Other: Voiding Method Urinal Urinal Urinal Ileal Conduit (Left) Ileal Conduit (Left) Ileal Conduit (Left) # Voids 2 # Bowel Movements 1 - Labs CBC & Chem 7: 09/20/23 06:39 09/20/23 06:39 Labs: Abnormal Lab Results - Last 24 Hours (Table) 09/20/23 09/20/23 Range/Units 06:39 06:39 WBC 21.20 H (4.50-10.00) X 10*3/uL RBC 3.35 L (4.40-5.60) X 10*6/uL Hgb 7.4 L (13.0-17.0) g/dL Hct 26.0 L (39.6-50.0) % MCV 77.6 L (80.0-97.0) FL MCH 22.1 L (27.0-32.0) pg MCHC 28.5 L (32.0-37.0) g/dL RDW 20.7 H (11.5-14.5) % Plt Count 518 H (140-440) X 10*3/uL Immature Gran # 0.19 H (0.00-0.04) X 10*3/uL Neutrophils # 17.42 H (1.80-7.70) X 10*3/uL Lymphocytes # 0.81 L (0.90-5.00) X 10*3/uL Monocytes # 2.10 H (0.20-1.00) X 10*3/uL Eosinophils # 0.62 H (0.04-0.35) X 10*3/uL Sodium 134 L (135-145) mmol/L Carbon Dioxide 20.2 L (21.6-31.8) mmol/L Anion Gap 12.80 H (4.00-12.00) mmol/L BUN/Creatinine Ratio 23.17 H (12.00-20.00) Ratio Calcium 8.4 L (8.7-10.3) mg/dL Microbiology - Last 24 Hours (Table) 09/17/23 09:20 Blood Culture - Preliminary Blood 09/17/23 09:05 Blood Culture - Preliminary Blood
[2023-09-21 08:38] LABS: Basophils # (A) 0.06 X 10*3/uL (0.00-0.10); Basophils % (A) 0.3 %; Eosinophils # (A) 0.41 X 10*3/uL (0.04-0.35); Eosinophils % (A) 1.9 %; HCT 25.9 % (39.6-50.0); HGB 7.4 g/dL (13.0-17.0); Lymphocytes % (A) 3.7 %; MCHC 28.6 g/dL (32.0-37.0); MCV 76.9 FL (80.0-97.0); Mean Platelet Volume 10.2 FL (9.5-12.2); Monocytes # (A) 1.92 X 10*3/uL (0.20-1.00); Monocytes % (A) 8.9 %; NRBC Per 100 WBC 0 X 10*3/uL (0.00-0.01); Neutrophils % (A) 84.3 %; Platelet Count 552 X 10*3/uL (140-440); RBC 3.37 X 10*6/uL (4.40-5.60); RDW 20.8 % (11.5-14.5); WBC 21.59 X 10*3/uL (4.50-10.00)
[2023-09-21] MEDS: ONDANSETRON 4 MG TAB PO PRN (09:18)
--- NOTE | 2023-09-21 16:47 | P.PN ---
Subjective Progress Note Date: 09/21/23 Patient is a 63-year-old male with a past medical history of atrial fibrillation on anticoagulation with Eliquis, COPD, prior history of smoking and bladder cancer diagnosed in January 2023 status post tumor resection and left nerve damage tube placement currently undergoing immunotherapy last therapy 2 weeks ago and missed most recent therapy due to urinary tract infection. Patient presents today with complaints of abdominal pain mainly in the lower abdomen. Patient was seen at [facility] and advised to call Sunday as his physician was not in office. Patient has been having increasing abdominal discomfort, distention and decreased appetite. Patient is also complaining of night sweats but denies any subjective fevers at home. Urine is noted in the nephrostomy tube. No complaints of chest pain or shortness of breath. No nausea nausea vomiting or diarrhea. No cough or sputum production. CT of the abdomen pelvis showed left-sided nephrostomy tube in place without evidence for hydronephrosis. Metastatic disease to the liver lung scan and osseous structures. Wall thickening within mass left urinary bladder. Laboratory data showed WBC 19.6 hemoglobin 6.7 and platelets 530 MCV 77.3 Sodium 133 potassium 5.1 chloride 103 bicarb is 22 BUN 21 and creatinine 0.73 and blood sugar 110 and lactic acid 3.2 and calcium 8.3. Alk phos 363 AST 44 ALT 33 and lipase 19. Urinalysis showed clear with trace protein and trace blood nitrate negative and initial urinalysis showed moderate leukocyte Estrace and WBC 7. 09/18/2023 Patient is seen in follow-up today with oncology following. Maintained on with concerns of possible infection in the urine. Patient was recently hospitalized at [facility] status post urinary ostomy tube in the left. Patient reports not much of an appetite with continued abdominal discomfort continue with nausea medications and also add bowel regimen as patient has not had a bowel movement in a few days. Current chemotherapy treatment on hold and being discussed with oncology with plans for possible resumption of treatment plan within the next 1 to 2 weeks. Encouraged to increase activity as tolerated and we will follow-up on labs. 09/19/2023 Patient is seen in follow-up this morning currently sitting up at the side of the bed reports continuing to have generalized weakness and abdominal pain. Recommend to continue with antinausea medications and bowel regimen that is scheduled as patient is having some constipation. Encouraged to increase activity as tolerated and frequent walking at least 3 times daily and sitting up in the chair more often. Oncology following as well and will follow-up outpatient regarding next treatment. Patient reported he had some leaking around his urostomy tube on the left. Dressing was changed and there is no drainage noted on exam. Site appears clean and dry with no significant redness or swelling noted. Patient reports the urinary bag was full. Patient is afebrile with no reports of chest pain or shortness of breath. 09/20/2023 Patient is seen in follow-up today continues to report significant pain and per oncology being adjusted to IV morphine as patient reports Eliquis not helping. Patient not tolerating much oral intake with no real appetite and reports continued nausea comfort. Recommend PT/OT therapy evaluation as patient is weak. Patient is currently afebrile with no reported chest pain or shortness of breath. No further drainage noted surrounding the nephrostomy tube. Continue with ceftriaxone for now. 09/21/2023 Patient is seen and evaluated in follow-up this morning continues to report significant pain and no real relief with IV morphine. Patient does have mo rphine 4 mg scheduled every 4 and has been receiving it [id number]. Patient continues on IV antibiotics and white count remains elevated with no fevers. Patient reports not much of an appetite although attempting to eat some and has not had a bowel movement. Bowel regimen made scheduled and encouraged the patient to increase activity as tolerated. Patient reports he is only walking from the bed back to the bathroom. Patient will require a 4 wheeled walker on discharge to manage ADLs given his significant weakness and metastatic cancer. Case management working on discharge planning. Review of systems: Constitutional: No reports of fatigue, fever, or chills Cardiovascular: No reports of chest pain or palpitations Respiratory: No reports of shortness of breath or cough GI: reports of nausea, no vomiting, or diarrhea, reports continued abdominal discomfort and has not had a bowel movement in a few days : No reports of dysuria or retention Neurovascular: reports of generalized weakness All medications have been reviewed PHYSICAL EXAMINATION: Patient is sitting up at the side of the bed , no acute distress, awake alert and oriented. Patient is weak and thin built. Cachectic with muscle wasting noted HEENT: Normocephalic. Neck is supple. Pupils reactive. Nostrils clear. Oral cavity is moist. Neck reveals no JVD, carotid bruits, or thyromegaly. CHEST EXAMINATION: Diminished breath sounds bilaterally otherwise trachea is central. Symmetrical expansion. Lung meehan clear to auscultation and percussion. CARDIAC: Normal S1, S2 with no gallops. No murmurs ABDOMEN: Soft. Bowel sounds present, left nephrostomy tube in place and dressing is dry and intact with no significant redness or drainage noted.. No organomegaly. No abdominal bruits. Extremities: reveal no edema. No clubbing or cyanosis Neurologically awake, alert, oriented x3 with well-coordinated movements. No gross focal deficits noted, diffusely weak Skin: No rash or skin lesions. Psychiatric: Cooperative. Non-suicidal Musculoskeletal: No joint swelling or deformity. Assessment: Lower abdominal pain likely malignancy related, left urinary bladder mass. 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 Hemoglobin 6.7 on admission. Hemoglobin on 08/19/2023 8.2 Lactic acidosis 3.2 on admission, improving Hypovolemic hyponatremia due to poor oral intake Elevated alk phos level likely metastatic osseous lesions. Microcytic anemia, iron deficiency noted and is receiving iron transfusions outpatient with oncology Paroxysmal atrial fibrillation on anticoagulation with Eliquis. COPD not in exacerbation Moderate protein calorie malnutrition with a BMI of 17.2 GI and DVT prophylaxis with PPI and SCDs. Full code Plan: Patient will be continued on IV hydration with normal saline. Was transfused with 1 unit of PRBC and hemoglobin is 7.4 with no active bleeding noted. Continue with antibiotics ceftriaxone and follow-up blood cultures remain negative. No significant white count in the urine so no culture was sent. Due to RBCs in the urinalysis, Eliquis is on hold and monitor hemoglobin level. Continue with pain management and other home medications including metoprolol and amiodarone. Patient reports [place] was not helping and has been transitioned to IV morphine per oncology. Patient is receiving 4 mg of morphine IV push every 4 hours and has been receiving it and requesting [id number] with no relief. To discuss further with oncology regarding pain management and discharge planning Patient with generalized weakness recommend PT/OT therapy evaluation, patient plans on returning home and will require a walker on discharge to perform ADLs Patient has not had a bowel movement and will continue with bowel regimen with scheduled and as needed along with antinausea medications Continue with DuoNebs and follow-up closely. Oncology following. Plan is for patient to follow-up outpatient to discuss treatment plan resuming in the next 1 to 2 weeks for his next cycle Due to multiple complex medical issues, prognosis is guarded at this time. Possible discharge planning in the next 24 to 48 hours if pain is better managed The impression and plan of care has been dictated by Jaimie Mesa, Nurse Practitioner as directed. Dr. Anna MD I have performed a history and examination and MDM of this patient, discussed the same with the dictator, and agree with the dictator's assessment and plan as written ,documented as a scribe. Based on total visit time, I have performed more than 50% of the visit. Objective - Vital Signs Vital signs: Vital Signs Temp 97.5 F L 09/21/23 12:49 Pulse 63 09/21/23 12:49 Resp 14 09/21/23 12:49 BP 135/71 09/21/23 12:49 Pulse Ox 97 09/21/23 12:49 FiO2 Intake & Output 09/20/23 09/21/23 09/21/23 18:59 06:59 18:59 Output Total 250 500 Balance -250 -500 Weight 58.967 kg Output: Drainage 250 Thigh 250 Urine 500 Other: Voiding Method Urinal Urinal Urinal Ileal Conduit (Left) Ileal Conduit (Left) Ileal Conduit (Left) # Voids 2 - Labs CBC & Chem 7: 09/21/23 05:32 09/20/23 06:39 Labs: Abnormal Lab Results - Last 24 Hours (Table) 09/21/23 Range/Units 05:32 WBC 21.59 H (4.50-10.00) X 10*3/uL RBC 3.37 L (4.40-5.60) X 10*6/uL Hgb 7.4 L (13.0-17.0) g/dL Hct 25.9 L (39.6-50.0) % MCV 76.9 L (80.0-97.0) FL MCH 22.0 L (27.0-32.0) pg MCHC 28.6 L (32.0-37.0) g/dL RDW 20.8 H (11.5-14.5) % Plt Count 552 H (140-440) X 10*3/uL Immature Gran # 0.20 H (0.00-0.04) X 10*3/uL Neutrophils # 18.20 H (1.80-7.70) X 10*3/uL Lymphocytes # 0.80 L (0.90-5.00) X 10*3/uL Monocytes # 1.92 H (0.20-1.00) X 10*3/uL Eosinophils # 0.41 H (0.04-0.35) X 10*3/uL Microbiology - Last 24 Hours (Table) 09/17/23 09:20 Blood Culture - Preliminary Blood 09/17/23 09:05 Blood Culture - Preliminary Blood
--- NOTE | 2023-09-21 18:36 | P.PN ---
Subjective Progress Note Date: 09/21/23 In follow-up today patient is reporting improvement in abdominal pain. He did have 1 episode of nausea vomiting this morning after eating but reports no nausea or vomiting at this time. Last bowel movement was 2 days ago, continues on scheduled and prn bowel regimen. CBC reviewed, WBC 21.5, hemoglobin 7.4, platelets 552,000. Objective - Vital Signs Vital signs: Vital Signs Temp 97.5 F L 09/21/23 12:49 Pulse 63 09/21/23 12:49 Resp 14 09/21/23 12:49 BP 135/71 09/21/23 12:49 Pulse Ox 97 09/21/23 12:49 FiO2 Intake & Output 09/20/23 09/21/23 09/21/23 18:59 06:59 18:59 Output Total 250 500 Balance -250 -500 Output: Drainage 250 Thigh 250 Urine 500 Other: Voiding Method Urinal Urinal Urinal Ileal Conduit (Left) Ileal Conduit (Left) Ileal Conduit (Left) # Voids 2 - Constitutional General appearance: Present: thin - EENT Eyes: Present: anicteric sclerae, EOMI ENT: Present: hearing grossly normal - Respiratory Details: breathing is even and unlabored - Cardiovascular Details: well perfused - Gastrointestinal Gastrointestinal Comment(s): mild diffuse tenderness, no guarding noted General gastrointestinal: Present: soft, tenderness - Integumentary Integumentary: Absent: cyanotic - Musculoskeletal Musculoskeletal: Present: generalized weakness - Psychiatric Psychiatric: Present: A&O x's 3 - Labs CBC & Chem 7: 09/21/23 05:32 09/20/23 06:39 Labs: Abnormal Lab Results - Last 24 Hours (Table) 09/21/23 Range/Units 05:32 WBC 21.59 H (4.50-10.00) X 10*3/uL RBC 3.37 L (4.40-5.60) X 10*6/uL Hgb 7.4 L (13.0-17.0) g/dL Hct 25.9 L (39.6-50.0) % MCV 76.9 L (80.0-97.0) FL MCH 22.0 L (27.0-32.0) pg MCHC 28.6 L (32.0-37.0) g/dL RDW 20.8 H (11.5-14.5) % Plt Count 552 H (140-440) X 10*3/uL Immature Gran # 0.20 H (0.00-0.04) X 10*3/uL Neutrophils # 18.20 H (1.80-7.70) X 10*3/uL Lymphocytes # 0.80 L (0.90-5.00) X 10*3/uL Monocytes # 1.92 H (0.20-1.00) X 10*3/uL Eosinophils # 0.41 H (0.04-0.35) X 10*3/uL Microbiology - Last 24 Hours (Table) 09/17/23 09:20 Blood Culture - Preliminary Blood 09/17/23 09:05 Blood Culture - Preliminary Blood Assessment and Plan (1) Iron deficiency anemia Current Visit: Yes Status: Acute Priority: Medium Code(s): D50.9 - IRON DEFICIENCY ANEMIA, UNSPECIFIED SNOMED Code(s): 20022055 (2) Malignant neoplasm metastatic from bladder Current Visit: Yes Status: Acute Priority: High Code(s): C67.9 - MALIGNANT NEOPLASM OF BLADDER, UNSPECIFIED SNOMED Code(s): 98710631 (3) Weakness Current Visit: Yes Status: Acute Priority: High Code(s): R53.1 - WEAKNESS SNOMED Code(s): 04140119 Plan: Weakness -Patient reporting feeling "sluggish", generalized weakness. -Multifactorial including anemia, poor appetite, possibly an infection and malignancy. -Status post 1 unit of PRBCs for Hgb 6.7. Hgb stable at 7.4 today. . -Plans for pain, nausea control and bowel regimen in place. Pt oral intake slowly improving. Carafate added for epigastric complaints. Reporting improvement in symptoms -BC negative at 72 hours, he remains afebrile. Continues on IV abx Metastatic bladder carcinoma -CT of the abdomen pelvis without contrast reporting basilar pulmonary nodules, hepatomegaly with areas of ill-defined, decreased attenuation suspicious for metastatic disease. Left-sided nephrostomy tube, no hydronephrosis, renal mass. Urinary bladder mass encompassing most of the left side of the bladder. Some free fluid is noted within the pelvis, there is mention of some scattered sclerotic bony metastases. -Plan to complete 6 cycles with short term imaging f/u. Pt will complete cycle 6 in the next 1-2 weeks. Constipation -multifactorial including metastatic disease, narcotic induced. -Sched and PRN meds ordered -pt is passing flatus, last BM 2 days ago Abd pain, lower -Pt c/o pain in lower abd, mild diffuse tenderness on exam -[place] DC'd, IV morphine started. Reporting improvement in pain. Will see what pt is using, and will plan to convert to oral regimen -Hope that once pt has a significant BM, symptoms will improve Iron deficient anemia -Patient is status post 1 unit of PRBCs for hemoglobin of 6.7 on admit. Hgb 7.4 today. -Patient has been receiving parenteral iron monthly in the office. His last doses of venofer were on 08/29, 09/05 and 09/12. -Transfuse for Hgb <7 or if symptomatic
[2023-09-22 10:33] LABS: Basophils # (A) 0.05 X 10*3/uL (0.00-0.10); Basophils % (A) 0.2 %; Eosinophils # (A) 0.33 X 10*3/uL (0.04-0.35); Eosinophils % (A) 1.3 %; HCT 24.1 % (39.6-50.0); Lymphocytes # (A) 0.66 X 10*3/uL (0.90-5.00); Lymphocytes % (A) 2.7 %; MCH 21.9 pg (27.0-32.0); MCV 75.3 FL (80.0-97.0); Mean Platelet Volume 10.3 FL (9.5-12.2); Monocytes # (A) 2.42 X 10*3/uL (0.20-1.00); Monocytes % (A) 9.7 %; NRBC Per 100 WBC 0 X 10*3/uL (0.00-0.01); Neutrophils # (A) 21.12 X 10*3/uL (1.80-7.70); Platelet Count 483 X 10*3/uL (140-440); RDW 20.7 % (11.5-14.5); WBC 24.86 X 10*3/uL (4.50-10.00)
[2023-09-22 10:34] LABS: Blood Urea Nitrogen 12.5 mg/dL (9.0-27.0); Calcium 8.1 mg/dL (8.7-10.3); Carbon Dioxide 20.5 mmol/L (21.6-31.8); Chloride 98 mmol/L (96-109); Glucose 86 mg/dL (70-110); Magnesium 1.8 mg/dL (1.5-2.4); Potassium 4.8 mmol/L (3.5-5.5); Sodium 132 mmol/L (135-145)
[2023-09-22] MEDS: bisacodyL 10 MG SUPP RECTAL STA (12:29)
[2023-09-23 11:06] LABS: BUN/Creat Ratio 24.33 Ratio (12.00-20.00); Blood Urea Nitrogen 14.6 mg/dL (9.0-27.0); Calcium 8.1 mg/dL (8.7-10.3); Carbon Dioxide 19.4 mmol/L (21.6-31.8); Chloride 100 mmol/L (96-109); Glucose 107 mg/dL (70-110); Potassium 4.7 mmol/L (3.5-5.5); Sodium 134 mmol/L (135-145)
[2023-09-23 11:43] LABS: Basophils # (A) 0.05 X 10*3/uL (0.00-0.10); Basophils % (A) 0.2 %; Eosinophils # (A) 0.29 X 10*3/uL (0.04-0.35); HCT 24.8 % (39.6-50.0); HGB 7.1 g/dL (13.0-17.0); Lymphocytes # (A) 0.77 X 10*3/uL (0.90-5.00); Lymphocytes % (A) 2.7 %; MCHC 28.6 g/dL (32.0-37.0); Mean Platelet Volume 10.6 FL (9.5-12.2); Monocytes # (A) 2.96 X 10*3/uL (0.20-1.00); Monocytes % (A) 10.5 %; NRBC Per 100 WBC 0 X 10*3/uL (0.00-0.01); Neutrophils # (A) 23.83 X 10*3/uL (1.80-7.70); Neutrophils % (A) 84.4 %; Platelet Count 463 X 10*3/uL (140-440); RBC 3.22 X 10*6/uL (4.40-5.60); RDW 20.7 % (11.5-14.5); WBC 28.24 X 10*3/uL (4.50-10.00)
[2023-09-23] MEDS: MELATONIN 3 MG TABLET PO SCH (20:52)
[2023-09-24 08:29] LABS: African American GFR (CKD) >90 (>60 ml/min/1.73 sqM); Anion Gap 6 mmol/L; Blood Urea Nitrogen 12 mg/dL (9-20); Calcium 7.9 mg/dL (8.4-10.2); Carbon Dioxide 23 mmol/L (22-30); Chloride 101 mmol/L (98-107); Glucose 85 mg/dL (74-99); Non-African American GFR(CKD) >90 (>60 ml/min/1.73 sqM); Potassium 4.2 mmol/L (3.5-5.1); Sodium 130 mmol/L (137-145)
[2023-09-24 08:41] LABS: Anisocytosis Slight; Basophils % (A) 0 %; Eosinophils # (A) 0.3 k/uL (0-0.7); Eosinophils % (A) 1 %; HCT 25.3 % (39.0-53.0); HGB 7.1 gm/dL (13.0-17.5); Hypochromasia Marked; Lymphocytes # (A) 0.8 k/uL (1.0-4.8); Lymphocytes % (A) 3 %; MCH 21.9 pg (25.0-35.0); MCHC 28.2 g/dL (31.0-37.0); MCV 77.5 fL (80.0-100.0); Microcytosis Slight; Monocytes # (A) 1.7 k/uL (0-1.0); Monocytes % (A) 7 %; Neutrophils # (A) 21.1 k/uL (1.3-7.7); Neutrophils % (A) 88 %; Platelet Count 391 k/uL (150-450); RBC 3.26 m/uL (4.30-5.90)
--- NOTE | 2023-09-24 10:38 | P.PN ---
Subjective Progress Note Date: 09/22/23 Patient is a 63-year-old male with a past medical history of atrial fibrillation on anticoagulation with Eliquis, COPD, prior history of smoking and bladder cancer diagnosed in January 2023 status post tumor resection and left nerve damage tube placement currently undergoing immunotherapy last therapy 2 weeks ago and missed most recent therapy due to urinary tract infection. Patient presents today with complaints of abdominal pain mainly in the lower abdomen. Patient was seen at [facility] and advised to call Sunday as his physician was not in office. Patient has been having increasing abdominal discomfort, distention and decreased appetite. Patient is also complaining of night sweats but denies any subjective fevers at home. Urine is noted in the nephrostomy tube. No complaints of chest pain or shortness of breath. No nausea nausea vomiting or diarrhea. No cough or sputum production. CT of the abdomen pelvis showed left-sided nephrostomy tube in place without evidence for hydronephrosis. Metastatic disease to the liver lung scan and osseous structures. Wall thickening within mass left urinary bladder. Laboratory data showed WBC 19.6 hemoglobin 6.7 and platelets 530 MCV 77.3 Sodium 133 potassium 5.1 chloride 103 bicarb is 22 BUN 21 and creatinine 0.73 and blood sugar 110 and lactic acid 3.2 and calcium 8.3. Alk phos 363 AST 44 ALT 33 and lipase 19. Urinalysis showed clear with trace protein and trace blood nitrate negative and initial urinalysis showed moderate leukocyte Estrace and WBC 7. 09/18/2023 Patient is seen in follow-up today with oncology following. Maintained on with concerns of possible infection in the urine. Patient was recently hospitalized at [facility] status post urinary ostomy tube in the left. Patient reports not much of an appetite with continued abdominal discomfort continue with nausea medications and also add bowel regimen as patient has not had a bowel movement in a few days. Current chemotherapy treatment on hold and being discussed with oncology with plans for possible resumption of treatment plan within the next 1 to 2 weeks. Encouraged to increase activity as tolerated and we will follow-up on labs. 09/19/2023 Patient is seen in follow-up this morning currently sitting up at the side of the bed reports continuing to have generalized weakness and abdominal pain. Recommend to continue with antinausea medications and bowel regimen that is scheduled as patient is having some constipation. Encouraged to increase activity as tolerated and frequent walking at least 3 times daily and sitting up in the chair more often. Oncology following as well and will follow-up outpatient regarding next treatment. Patient reported he had some leaking around his urostomy tube on the left. Dressing was changed and there is no drainage noted on exam. Site appears clean and dry with no significant redness or swelling noted. Patient reports the urinary bag was full. Patient is afebrile with no reports of chest pain or shortness of breath. 09/20/2023 Patient is seen in follow-up today continues to report significant pain and per oncology being adjusted to IV morphine as patient reports Eliquis not helping. Patient not tolerating much oral intake with no real appetite and reports continued nausea comfort. Recommend PT/OT therapy evaluation as patient is weak. Patient is currently afebrile with no reported chest pain or shortness of breath. No further drainage noted surrounding the nephrostomy tube. Continue with ceftriaxone for now. 09/21/2023 Patient is seen and evaluated in follow-up this morning continues to report significant pain and no real relief with IV morphine. Patient does have morp kassie 4 mg scheduled every 4 and has been receiving it [id number]. Patient continues on IV antibiotics and white count remains elevated with no fevers. Patient reports not much of an appetite although attempting to eat some and has not had a bowel movement. Bowel regimen made scheduled and encouraged the patient to increase activity as tolerated. Patient reports he is only walking from the bed back to the bathroom. Patient will require a 4 wheeled walker on discharge to manage ADLs given his significant weakness and metastatic cancer. Case management working on discharge planning. 09/22/2023 Patient is lying in bed. Patient complains of pain and requiring IV pain medications. Patient is also constipated. Dulcolax suppository was ordered. No complaints of chest pain or shortness of breath. Lower abdominal discomfort. No nausea or vomiting. Laboratory data showed WBC 24.8 hemoglobin 7.0 and platelets 483 sodium 132 potassium 4.8 chloride 98 bicarb is 20.5 BUN 12.5 and creatinine 0.5 blood sugar 115 and calcium 8.1 and magnesium 1.8. Current medications reviewed. Review of systems: Constitutional: No reports of fatigue, fever, or chills Cardiovascular: No reports of chest pain or palpitations Respiratory: No reports of shortness of breath or cough GI: reports of nausea, no vomiting, or diarrhea, reports continued abdominal discomfort and has not had a bowel movement in a few days : No reports of dysuria or retention Neurovascular: reports of generalized weakness All medications have been reviewed PHYSICAL EXAMINATION: Patient is sitting up at the side of the bed , no acute distress, awake alert and oriented. Patient is weak and thin built. Cachectic with muscle wasting noted HEENT: Normocephalic. Neck is supple. Pupils reactive. Nostrils clear. Oral cavity is moist. Neck reveals no JVD, carotid bruits, or thyromegaly. CHEST EXAMINATION: Diminished breath sounds bilaterally otherwise trachea is central. Symmetrical expansion. Lung meehan clear to auscultation and percussion. CARDIAC: Normal S1, S2 with no gallops. No murmurs ABDOMEN: Soft. Bowel sounds present, left nephrostomy tube in place and dressing is dry and intact with no significant redness or drainage noted.. No organomegaly. No abdominal bruits. Extremities: reveal no edema. No clubbing or cyanosis Neurologically awake, alert, oriented x3 with well-coordinated movements. No gross focal deficits noted, diffusely weak Skin: No rash or skin lesions. Psychiatric: Cooperative. Non-suicidal Musculoskeletal: No joint swelling or deformity. Assessment: Lower abdominal pain likely malignancy related, left urinary bladder mass. 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 Hemoglobin 6.7 on admission. Hemoglobin on 08/19/2023 8.2 Lactic acidosis 3.2 on admission, improving Hypovolemic hyponatremia due to poor oral intake Elevated alk phos level likely metastatic osseous lesions. Microcytic anemia, iron deficiency noted and is receiving iron transfusions outpatient with oncology Paroxysmal atrial fibrillation on anticoagulation with Eliquis. COPD not in exacerbation Moderate protein calorie malnutrition with a BMI of 17.2 GI and DVT prophylaxis with PPI and SCDs. Full code Plan: Patient was continued on IV hydration. Encourage oral intake now.. Patient was given Dulcolax suppository due to constipation. Was transfused with 1 unit of PRBC and hemoglobin is 7.0 with no active bleeding noted. Continue with antibiotics ceftriaxone and follow-up blood cultures remain negative. No significant white count in the urine so no culture was sent. Due to RBCs in the urinalysis, Eliquis is on hold and monitor hemoglobin level. Continue with pain management and other home medications including metoprolol and amiodarone. Patient reports [place] was not helping and has been transitioned to IV morphine per oncology. Patient is receiving 4 mg of morphine IV push every 4 hours and has been receiving it and requesting [id number] with no relief. To discuss further with oncology regarding pain management and discharge planning Patient with generalized weakness recommend PT/OT therapy evaluation, patient plans on returning home and will require a walker on discharge to perform ADLs Patient has not had a bowel movement and will continue with bowel regimen with scheduled and as needed along with antinausea medications Continue with DuoNebs and follow-up closely. Oncology following. Plan is for patient to follow-up outpatient to discuss treatment plan resuming in the next 1 to 2 weeks for his next cycle Due to multiple complex medical issues, prognosis is guarded at this time. Possible discharge planning in the next 24 to 48 hours if pain is better managed Objective - Vital Signs Vital signs: Vital Signs Temp 98.5 F 09/22/23 19:14 Pulse 64 09/22/23 19:14 Resp 14 09/22/23 19:14 BP 137/64 09/22/23 19:14 Pulse Ox 96 09/22/23 19:14 FiO2 Intake & Output 09/22/23 09/22/23 09/23/23 06:59 18:59 06:59 Intake Total 540 Output Total 800 1000 Balance -260 -1000 Intake: Oral 540 Output: Urine 800 1000 Other: Voiding Method Urinal Urinal Ileal Conduit (Left) Ileal Conduit (Left) # Bowel Movements 1 - Labs CBC & Chem 7: 09/24/23 07:13 09/24/23 07:13 Labs: Abnormal Lab Results - Last 24 Hours (Table) 09/22/23 09/22/23 Range/Units 04:45 04:45 WBC 24.86 H (4.50-10.00) X 10*3/uL RBC 3.20 L (4.40-5.60) X 10*6/uL Hgb 7.0 L (13.0-17.0) g/dL Hct 24.1 L (39.6-50.0) % MCV 75.3 L (80.0-97.0) FL MCH 21.9 L (27.0-32.0) pg MCHC 29.0 L (32.0-37.0) g/dL RDW 20.7 H (11.5-14.5) % Plt Count 483 H (140-440) X 10*3/uL Immature Gran # 0.28 H (0.00-0.04) X 10*3/uL Neutrophils # 21.12 H (1.80-7.70) X 10*3/uL Lymphocytes # 0.66 L (0.90-5.00) X 10*3/uL Monocytes # 2.42 H (0.20-1.00) X 10*3/uL Sodium 132 L (135-145) mmol/L Carbon Dioxide 20.5 L (21.6-31.8) mmol/L Anion Gap 13.50 H (4.00-12.00) mmol/L Creatinine 0.5 L (0.6-1.5) mg/dL BUN/Creatinine Ratio 25.00 H (12.00-20.00) Ratio Calcium 8.1 L (8.7-10.3) mg/dL Microbiology - Last 24 Hours (Table) 09/17/23 09:20 Blood Culture - Final Blood 09/17/23 09:05 Blood Culture - Final Blood
--- NOTE | 2023-09-24 10:40 | P.PN ---
Subjective Progress Note Date: 09/23/23 Patient is a 63-year-old male with a past medical history of atrial fibrillation on anticoagulation with Eliquis, COPD, prior history of smoking and bladder cancer diagnosed in January 2023 status post tumor resection and left nerve damage tube placement currently undergoing immunotherapy last therapy 2 weeks ago and missed most recent therapy due to urinary tract infection. Patient presents today with complaints of abdominal pain mainly in the lower abdomen. Patient was seen at [facility] and advised to call Sunday as his physician was not in office. Patient has been having increasing abdominal discomfort, distention and decreased appetite. Patient is also complaining of night sweats but denies any subjective fevers at home. Urine is noted in the nephrostomy tube. No complaints of chest pain or shortness of breath. No nausea nausea vomiting or diarrhea. No cough or sputum production. CT of the abdomen pelvis showed left-sided nephrostomy tube in place without evidence for hydronephrosis. Metastatic disease to the liver lung scan and osseous structures. Wall thickening within mass left urinary bladder. Laboratory data showed WBC 19.6 hemoglobin 6.7 and platelets 530 MCV 77.3 Sodium 133 potassium 5.1 chloride 103 bicarb is 22 BUN 21 and creatinine 0.73 and blood sugar 110 and lactic acid 3.2 and calcium 8.3. Alk phos 363 AST 44 ALT 33 and lipase 19. Urinalysis showed clear with trace protein and trace blood nitrate negative and initial urinalysis showed moderate leukocyte Estrace and WBC 7. 09/18/2023 Patient is seen in follow-up today with oncology following. Maintained on with concerns of possible infection in the urine. Patient was recently hospitalized at [facility] status post urinary ostomy tube in the left. Patient reports not much of an appetite with continued abdominal discomfort continue with nausea medications and also add bowel regimen as patient has not had a bowel movement in a few days. Current chemotherapy treatment on hold and being discussed with oncology with plans for possible resumption of treatment plan within the next 1 to 2 weeks. Encouraged to increase activity as tolerated and we will follow-up on labs. 09/19/2023 Patient is seen in follow-up this morning currently sitting up at the side of the bed reports continuing to have generalized weakness and abdominal pain. Recommend to continue with antinausea medications and bowel regimen that is scheduled as patient is having some constipation. Encouraged to increase activity as tolerated and frequent walking at least 3 times daily and sitting up in the chair more often. Oncology following as well and will follow-up outpatient regarding next treatment. Patient reported he had some leaking around his urostomy tube on the left. Dressing was changed and there is no drainage noted on exam. Site appears clean and dry with no significant redness or swelling noted. Patient reports the urinary bag was full. Patient is afebrile with no reports of chest pain or shortness of breath. 09/20/2023 Patient is seen in follow-up today continues to report significant pain and per oncology being adjusted to IV morphine as patient reports Eliquis not helping. Patient not tolerating much oral intake with no real appetite and reports continued nausea comfort. Recommend PT/OT therapy evaluation as patient is weak. Patient is currently afebrile with no reported chest pain or shortness of breath. No further drainage noted surrounding the nephrostomy tube. Continue with ceftriaxone for now. 09/21/2023 Patient is seen and evaluated in follow-up this morning continues to report significant pain and no real relief with IV morphine. Patient does have morp kassie 4 mg scheduled every 4 and has been receiving it [id number]. Patient continues on IV antibiotics and white count remains elevated with no fevers. Patient reports not much of an appetite although attempting to eat some and has not had a bowel movement. Bowel regimen made scheduled and encouraged the patient to increase activity as tolerated. Patient reports he is only walking from the bed back to the bathroom. Patient will require a 4 wheeled walker on discharge to manage ADLs given his significant weakness and metastatic cancer. Case management working on discharge planning. 09/22/2023 Patient is lying in bed. Patient complains of pain and requiring IV pain medications. Patient is also constipated. Dulcolax suppository was ordered. No complaints of chest pain or shortness of breath. Lower abdominal discomfort. No nausea or vomiting. Laboratory data showed WBC 24.8 hemoglobin 7.0 and platelets 483 sodium 132 potassium 4.8 chloride 98 bicarb is 20.5 BUN 12.5 and creatinine 0.5 blood sugar 115 and calcium 8.1 and magnesium 1.8. 09/22/2023 Patient is resting in bed. Awake alert and oriented. Currently on room air. No complaints of chest pain or shortness of breath. Pain is fairly controlled with IV pain medications will be titrated down. Oncology is on board. Otherwise patient did have a bowel movement yesterday. Was able to tolerate oral diet better today. No fever or chills. No nausea or vomiting. Laboratory data showed WBC 28.2 hemoglobin 7.1 and platelets 463 sodium 134 potassium 4.7 chloride 100 bicarb is 19.4 BUN 14.6 and creatinine 0.6 and blood sugar 107 Current medications reviewed. Review of systems: Constitutional: No reports of fatigue, fever, or chills Cardiovascular: No reports of chest pain or palpitations Respiratory: No reports of shortness of breath or cough GI: reports of nausea, no vomiting, or diarrhea, reports continued abdominal discomfort and has not had a bowel movement in a few days : No reports of dysuria or retention Neurovascular: reports of generalized weakness All medications have been reviewed PHYSICAL EXAMINATION: Patient is sitting up at the side of the bed , no acute distress, awake alert a nd oriented. Patient is weak and thin built. Cachectic with muscle wasting noted HEENT: Normocephalic. Neck is supple. Pupils reactive. Nostrils clear. Oral cavity is moist. Neck reveals no JVD, carotid bruits, or thyromegaly. CHEST EXAMINATION: Diminished breath sounds bilaterally otherwise trachea is central. Symmetrical expansion. Lung meehan clear to auscultation and percussion. CARDIAC: Normal S1, S2 with no gallops. No murmurs ABDOMEN: Soft. Bowel sounds present, left nephrostomy tube in place and dressing is dry and intact with no significant redness or drainage noted.. No organo megaly. No abdominal bruits. Extremities: reveal no edema. No clubbing or cyanosis Neurologically awake, alert, oriented x3 with well-coordinated movements. No gross focal deficits noted, diffusely weak Skin: No rash or skin lesions. Psychiatric: Cooperative. Non-suicidal Musculoskeletal: No joint swelling or deformity. Assessment: Lower abdominal pain likely malignancy related, left urinary bladder mass. 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 Hemoglobin 6.7 on admission. Hemoglobin on 08/19/2023 8.2 Lactic acidosis 3.2 on admission, improving Hypovolemic hyponatremia due to poor oral intake Elevated alk phos level likely metastatic osseous lesions. Microcytic anemia, iron deficiency noted and is receiving iron transfusions outpatient with oncology Paroxysmal atrial fibrillation on anticoagulation with Eliquis. COPD not in exacerbation Moderate protein calorie malnutrition with a BMI of 17.2 GI and DVT prophylaxis with PPI and SCDs. Full code Plan: Patient was continued on IV hydration. Encourage oral intake now.. Patient did have bowel movement with suppository. Continue with bowel regimen. Was transfused with 1 unit of PRBC and hemoglobin is 7.0 with no active bleeding noted. Continue with antibiotics ceftriaxone and follow-up blood cultures remain negative. No significant white count in the urine so no culture was sent. Due to RBCs in the urinalysis, Eliquis is on hold and monitor hemoglobin level. Continue with pain management and other home medications including metoprolol and amiodarone. Patient reports [place] was not helping and has been transitioned to IV morphine per oncology. Patient is receiving 4 mg of morphine IV push every 4 hours and has been receiving it and requesting [id number] with no relief. To discuss further with oncology regarding pain management and discharge planning Patient with generalized weakness recommend PT/OT therapy evaluation, patient plans on returning home and will require a walker on discharge to perform ADLs Patient has not had a bowel movement and will continue with bowel regimen with scheduled and as needed along with antinausea medications Continue with DuoNebs and follow-up closely. Oncology following. Plan is for patient to follow-up outpatient to discuss treatment plan resuming in the next 1 to 2 weeks for his next cycle Due to multiple complex medical issues, prognosis is guarded at this time. Possible discharge planning in the next 24 to 48 hours if pain is better managed Objective - Vital Signs Vital signs: Vital Signs Temp 97.4 F L 09/23/23 07:51 Pulse 65 09/23/23 07:51 Resp 17 09/23/23 07:51 BP 141/76 09/23/23 07:51 Pulse Ox 97 09/23/23 07:51 FiO2 Intake & Output 09/22/23 09/23/23 09/23/23 18:59 06:59 18:59 Output Total 1000 650 400 Balance -1000 -650 -400 Output: Urine 1000 650 400 Other: Voiding Method Urinal Urinal Urinal Ileal Conduit (Left) Ileal Conduit (Left) Ileal Conduit (Left) # Voids 2 1 # Bowel Movements 1 - Labs CBC & Chem 7: 09/24/23 07:13 09/24/23 07:13 Labs: Abnormal Lab Results - Last 24 Hours (Table) 09/23/23 Range/Units 05:01 Sodium 134 L (135-145) mmol/L Carbon Dioxide 19.4 L (21.6-31.8) mmol/L Anion Gap 14.60 H (4.00-12.00) mmol/L BUN/Creatinine Ratio 24.33 H (12.00-20.00) Ratio Calcium 8.1 L (8.7-10.3) mg/dL Microbiology - Last 24 Hours (Table) 09/17/23 09:20 Blood Culture - Final Blood 09/17/23 09:05 Blood Culture - Final Blood
[2023-09-24 14:33] VITALS: BP 101/73; PULSE 115; RESP 19; TEMP 98.3
[2023-09-24] MEDS ORDERED: APIXABAN 2.5 MG TABLET PO SCH (21:00)
--- NOTE | 2023-09-29 10:33 | P.DS ---
Providers Date of admission: 09/17/23 11:03 Expected date of discharge: 09/24/23 Attending physician: Barbara Conde Consults: 09/17/23 10:15 Consult Physician Urgent Consulting Provider: Carlos Hankins Consult Reason/Comments: Metastatic cancer, anemia Do you want consulting provider notified?: Yes Primary care physician: Carlos Hankins MD Hospital Course: Final diagnosis Lower abdominal pain likely malignancy related, left urinary bladder mass. 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 Hemoglobin 6.7 on admission. Hemoglobin on 08/19/2023 8.2 Lactic acidosis 3.2 on admission, improving Hypovolemic hyponatremia due to poor oral intake Elevated alk phos level likely metastatic osseous lesions. Microcytic anemia, iron deficiency noted and is receiving iron transfusions outpatient with oncology Paroxysmal atrial fibrillation on anticoagulation with Eliquis. COPD not in exacerbation Moderate protein calorie malnutrition with a BMI of 17.2 GI and DVT prophylaxis with PPI and SCDs. Full code Discharge disposition Patient is being discharged in a stable condition with guarded prognosis to home. Patient will follow-up with oncology in the outpatient setting upon discharge. Patient is to continue with palliative care outpatient. Total time taken is greater than 35 minutes. Hospital course This is a 63-year-old male who was recently admitted with abdominal pain likely malignancy related with concerns of urinary tract infection as patient had recent left nephrostomy tube placed at [facility]. Cultures were obtained and remain negative and patient was continued on empiric antibiotics in the form of ceftriaxone. Patient remained afebrile and denied any decreased urinary output or pain with urination. Patient did have a brief episode of leaking at the nephrostomy tube although the drainage bag had been full. Patient with generalized weakness and poor oral intake slowly improving and reports to feeling better and would like to go home. Patient does have a caregiver at home and will follow-up with oncology outpatient. Plan for next treatment within the next 1 to 2 weeks. Recommend repeat labs which is being discussed with oncology for outpatient follow-up this week. Patient cleared for discharge home. Please refer to oncology notes for further HPI. Currently no reports of chest pain, shortness of breath, or palpitations. Patient is afebrile. No reports of nausea or vomiting and patient is tolerating diet. Strongly encouraged bowel regimen as well. Patient will be discharged home today. High risk for readmiss ions given patient's significant comorbidities and metastatic cancer. Physical exam: Gen: This is a 63-year-old male who is awake, alert and oriented x 3, well- developed, thin built, cachectic, elderly appearing, ill-appearing HEENT: Head is atraumatic, normocephalic. Pupils equal, round. Sclerae is anicteric. NECK: Supple. No JVD. No lymphadenopathy. No thyromegaly. LUNGS: Clear to auscultation. No wheezes or rhonchi. No intercostal retractions. HEART: S1, S2 are muffled ABDOMEN: Soft. Thin, scaphoid bowel sounds are present. No masses. No tenderness. EXTREMITIES: No pedal edema. No calf tenderness. NEUROLOGICAL: Patient is awake, alert and oriented x3. Cranial nerves 2 through 12 are grossly intact. Please refer to medication reconciliation sheet for a list of medications. The impression and plan of care has been dictated by Jaimie Mesa, Nurse Practitioner as directed. Dr. Arun MD I have performed a history and examination and MDM of this patient, discussed the same with the dictator, and agree with the dictator's assessment and plan as written ,documented as a scribe. Based on total visit time, I have performed more than 50% of the visit. Patient Condition at Discharge: Poor Plan - Discharge Summary Discharge Rx Participant: Yes New Discharge Prescriptions: New Magnesium Hydroxide [Milk of Magnesia] 2,400 mg PO BID PRN ml PRN Reason: Constipation polyethylene glycoL 3350 [Miralax] 17 gm PO DAILY #30 packet Sucralfate [Carafate] 1 gm PO AC-BID #60 tab Sennosides-Docusate Sodium [Senokot-S] 2 each PO BID #60 tab Continue Ondansetron [Zofran] 4 mg PO Q4H PRN PRN Reason: Nausea Budesonide/Formoterol Fumarate [Symbicort 160-4.5 Mcg Inhaler] 2 puff INHALATION RT-BID PRN PRN Reason: Shortness Of Breath Apixaban [Eliquis] 2.5 mg PO BID Metoprolol Tartrate [Lopressor] 50 mg PO TID 30 Days #90 tab Amiodarone [Cordarone] 200 mg PO DAILY HYDROcodone/APAP 10-325MG [Ilion 10-325] 1 tab PO Q4HR PRN PRN Reason: Pain Ipratropium-Albuterol Nebulize [Duoneb 0.5 mg-3 mg/3 ml Soln] 3 ml INHALATION RT-QID PRN PRN Reason: Shortness Of Breath Albuterol Sulfate [Albuterol Sulfate Hfa] 2 puff PO RT-Q4H PRN PRN Reason: Shortness Of Breath Discharge Medication List Ondansetron [Zofran] 4 mg PO Q4H PRN 05/25/23 [History] HYDROcodone/APAP 10-325MG [Ilion 10-325] 1 tab PO Q4HR PRN 06/06/23 [History] Apixaban [Eliquis] 2.5 mg PO BID 07/01/23 [History] Budesonide/Formoterol Fumarate [Symbicort 160-4.5 Mcg Inhaler] 2 puff INHALATION RT-BID PRN 07/01/23 [History] Ipratropium-Albuterol Nebulize [Duoneb 0.5 mg-3 mg/3 ml Soln] 3 ml INHALATION R T-QID PRN 07/01/23 [History] Metoprolol Tartrate [Lopressor] 50 mg PO TID 30 Days #90 tab 07/06/23 [Rx] Amiodarone [Cordarone] 200 mg PO DAILY 07/19/23 [History] Albuterol Sulfate [Albuterol Sulfate Hfa] 2 puff PO RT-Q4H PRN 09/17/23 [History] Magnesium Hydroxide [Milk of Magnesia] 2,400 mg PO BID PRN ml 09/24/23 [Rx] Sennosides-Docusate Sodium [Senokot-S] 2 each PO BID #60 tab 09/24/23 [Rx] Sucralfate [Carafate] 1 gm PO AC-BID #60 tab 09/24/23 [Rx] polyethylene glycoL 3350 [Miralax] 17 gm PO DAILY #30 packet 09/24/23 [Rx] Follow up Appointment(s)/Referral(s): Carlos Hankins MD [Primary Care Provider] - 1-2 days (The office will call with a follow up appointment.) [facility] [NON-STAFF] - 1 Week [facility], [NON-STAFF] - 1 Week Patient Instructions/Handouts: Sucralfate (By mouth), Laxative, Stimulant (By mouth), Polyethylene Glycol 3350 (By mouth), Constipation (DC), Anemia (DC) Activity/Diet/Wound Care/Special Instructions: Activity limited until follow-up Follow-up with primary care provider on discharge Follow-up with oncology outpatient Continue taking medications as prescribed Continue with palliative care Discharge/Stand Alone Forms: Who Do I Call?, Community Resources, Help In The Home Discharge Disposition: HOME WITH HOME HEALTH SERVICES
== END 2023-09-24 16:12 | disposition home health service (06) | DRG 461 ==
LOC: EC 06:35 → 5NMEDONC 11:02 → OBSVTOIN 11:03 → 5NMEDONC 13:22
PROVIDERS: ADMIT Hospitalist; ATTEND Hospitalist
DX: C67.9 Malignant neoplasm of bladder, unspecified (principal); C78.00 Secondary malignant neoplasm of unspecified lung; C78.7 Secondary malignant neoplasm of liver and intrahepatic bile duct; C79.51 Secondary malignant neoplasm of bone; T40.605A Adverse effect of unspecified narcotics, initial encounter; D50.9 Iron deficiency anemia, unspecified; E44.0 Moderate protein-calorie malnutrition; D53.9 Nutritional anemia, unspecified; E86.0 Dehydration; E86.1 Hypovolemia; E87.20 Acidosis, unspecified; E87.1 Hypo-osmolality and hyponatremia; I10 Essential (primary) hypertension; I48.0 Paroxysmal atrial fibrillation; J44.9 Chronic obstructive pulmonary disease, unspecified; Z68.1 Body mass index [BMI] 19.9 or less, adult; D63.0 Anemia in neoplastic disease; N43.3 Hydrocele, unspecified; N40.0 Benign prostatic hyperplasia without lower urinary tract symptoms; Z79.01 Long term (current) use of anticoagulants; Z79.51 Long term (current) use of inhaled steroids; Z79.899 Other long term (current) drug therapy; Z91.041 Radiographic dye allergy status; X58.XXXA Exposure to other specified factors, initial encounter; Z87.891 Personal history of nicotine dependence
CPT/HCPCS: 36415; 36430; 74176; 80048; 80053; 81001; 83540; 83550; 83605; 83690; 83735; 85025; 86850; 86900; 86901; 86920; 87040; 94640; 94760; 96361; 96365; 99291

== ENCOUNTER 2023-10-03 16:23 | Inpatient (IN) | payer OTHER ==
[2023-10-03 17:31] LABS: Anisocytosis Slight; Basophils # (A) 0.1 k/uL (0-0.2); Basophils % (A) 0 %; Eosinophils # (A) 0.5 k/uL (0-0.7); Eosinophils % (A) 1 %; HCT 25.8 % (39.0-53.0); Hypochromasia Marked; Lymphocytes # (A) 0.7 k/uL (1.0-4.8); Lymphocytes % (A) 2 %; MCH 21.5 pg (25.0-35.0); MCHC 27.1 g/dL (31.0-37.0); MCV 79.4 fL (80.0-100.0); Mean Platelet Volume 8.2; Microcytosis Slight; Monocytes # (A) 1.7 k/uL (0-1.0); Monocytes % (A) 4 %; Neutrophils # (A) 37.4 k/uL (1.3-7.7); Neutrophils % (A) 92 %; Platelet Count 487 k/uL (150-450); RBC 3.25 m/uL (4.30-5.90); RDW 18.9 % (11.5-15.5); WBC 40.6 k/uL (3.8-10.6)
[2023-10-03 17:44] LABS: ALT 19 U/L (4-49); AST 26 U/L (17-59); African American GFR (CKD) >90 (>60 ml/min/1.73 sqM); Albumin 2.6 g/dL (3.5-5.0); Alkaline Phosphatase 398 U/L (38-126); Anion Gap 9 mmol/L; Blood Urea Nitrogen 21 mg/dL (9-20); Calcium 8.4 mg/dL (8.4-10.2); Carbon Dioxide 23 mmol/L (22-30); Chloride 101 mmol/L (98-107); Glucose 102 mg/dL (74-99); Magnesium 1.9 mg/dL (1.6-2.3); Non-African American GFR(CKD) >90 (>60 ml/min/1.73 sqM); Potassium 4.6 mmol/L (3.5-5.1); Sodium 133 mmol/L (137-145); Total Protein 5.4 g/dL (6.3-8.2)
[2023-10-03 17:53] LABS: NT-Pro-B-Type Natriuretic Pept 3110 pg/mL
--- NOTE | 2023-10-03 17:56 | XR ---
EXAMINATION TYPE: XR chest 2V DATE OF EXAM: 10/03/2023 COMPARISON: 07/01/2023 and 08/09/2023 HISTORY: 63 year-old male shortness of breath, difficulty breathing TECHNIQUE: AP and lateral views FINDINGS: Heart mildly enlarged. Mild interstitial prominence. Scattered areas of nodularity in the lungs. Patc hy posterior basilar opacity. Increased retrosternal clear space suggesting underlying COPD. IMPRESSION: 1. Mild cardiomegaly, COPD, and interstitial prominence. Correlate to exclude mild pulmonary vascular congestion. 2. Patchy left basilar and posterior basilar opacity. Correlate clinically to exclude the possibility of an early pneumonia. 3. Subtle nodularity in the lungs. Possibly progressed from the patient's 08/09/2023 PET/CT.
[2023-10-03 18:00] LABS: INR 1.3 (<1.2); Partial Thromboplastin Time 28.6 sec (22.0-30.0); Prothrombin Time 13.5 sec (10.0-12.5)
[2023-10-03] MEDS: HYDROcodone/APAP 10-325MG 1 EACH TAB PO ONE (18:37)
--- NOTE | 2023-10-03 20:30 | ED ---
General Adult HPI - General Chief complaint: Shortness of Breath Stated complaint: sent by MARY HERRMANN bi. swollen leg Time Seen by Provider: 10/03/23 16:41 Source: patient Mode of arrival: wheelchair Limitations: no limitations - History of Present Illness Initial comments: 63-year-old male with past medical history of metastatic bladder cancer who presents emergency department from the oncology center. Patient went in there today to receive immunotherapy treatment. He had been reporting weakness and increased lower extremity swelling. They checked his labs and noted that he was anemic. They felt that he needed blood and therefore they transferred him over to the hospital. Patient admits to having previous blood transfusion. Patient was recently hospitalized for similar. He is not taking any Lasix as his oncologist was worried about him becoming dehydrated. Patient does wear 2 L of oxygen at all times. States that he has been feeling more short of breath. He denies any bleeding. Denies black or bloody stools. He does have a nephrostomy tube placed on the left side. He denies any change in the coloration of his drainage. Patient denies fevers, chills or cough. No other alleviating, precipitating or modifying factors - Related Data Home Medications Medication Instructions Recorded Confirmed Ondansetron [Zofran] 4 mg PO Q4H PRN 05/25/23 10/03/23 HYDROcodone/APAP 10-325MG [[place] 1 tab PO Q4HR PRN 06/06/23 10/03/23 10-325] Apixaban [Eliquis] 2.5 mg PO BID 07/01/23 10/03/23 Budesonide/Formoterol Fumarate 2 puff INHALATION RT-BID PRN 07/01/23 10/03/23 [Symbicort 160-4.5 Mcg Inhaler] Ipratropium-Albuterol Nebulize 3 ml INHALATION RT-QID PRN 07/01/23 10/03/23 [Duoneb 0.5 mg-3 mg/3 ml Soln] Amiodarone [Cordarone] 200 mg PO DAILY 07/19/23 10/03/23 Albuterol Sulfate [Albuterol 2 puff INHALATION RT-Q4H PRN 09/17/23 10/03/23 Sulfate Hfa] Sennosides-Docusate Sodium 2 tab PO BID 10/03/23 10/03/23 [Senokot-S] Previous Rx's Medication Instructions Recorded Magnesium Hydroxide [Milk of 2,400 mg PO BID PRN ml 09/24/23 Magnesia] Sucralfate [Carafate] 1 gm PO AC-BID #60 tab 09/24/23 polyethylene glycoL 3350 [Miralax] 17 gm PO DAILY #30 packet 09/24/23 Folic Acid 1 mg PO DAILY@1200 #30 tab 10/09/23 Ipratropium-Albuterol Nebulize 3 ml INHALATION RT-QID #100 each 10/09/23 [Duoneb 0.5 mg-3 mg/3 ml Soln] Metoprolol Tartrate [Lopressor] 75 mg PO TID 30 Days #180 tab 10/09/23 Multivitamins, Thera [Multivitamin 1 each PO DAILY@1200 #30 tab 10/09/23 (formulary)] Nystatin 100,000 Unit/ml Susp 500,000 unit PO QID #360 ml 10/09/23 [Mycostatin Oral Susp] Thiamine [Vitamin B-1] 100 mg PO DAILY@1200 #30 tab 10/09/23 cefUROXime axetiL [Ceftin] 500 mg PO BID 5 Days #10 tab 10/09/23 Allergies Allergy/AdvReac Type Severity Reaction Status Date / Time Iodinated Contrast Media Allergy Neck Verified 10/03/23 19:38 swelling/Rash Review of Systems ROS Statement: Those systems with pertinent positive or pertinent negative responses have been documented in the HPI. ROS Other: All systems not noted in ROS Statement are negative. 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 left nephrostomy tube (2023) Past Anesthesia/Blood Transfusion Reactions: No Reported Reaction Past Psychological History: No Psychological Hx Reported Smoking Status: Former smoker Past Alcohol Use History: None Reported Past Drug Use History: None Reported - Past Family History Father Family Medical History: Cancer Additional Family Medical History / Comment(s): lung cancer, smoker General Exam Limitations: no limitations General appearance: alert, in no apparent distress Head exam: Present: atraumatic, normocephalic, normal inspection Eye exam: Present: normal appearance, PERRL, EOMI. Absent: scleral icterus, conjunctival injection, periorbital swelling ENT exam: Present: normal exam, mucous membranes moist Neck exam: Present: normal inspection. Absent: tenderness, meningismus, lymphadenopathy Respiratory exam: Present: rales. Absent: respiratory distress, wheezes, rhonchi, stridor Cardiovascular Exam: Present: regular rate, normal rhythm, normal heart sounds. Absent: systolic murmur, diastolic murmur, rubs, gallop, clicks GI/Abdominal exam: Present: soft, normal bowel sounds. Absent: distended, tenderness, guarding, rebound, rigid Extremities exam: Present: full ROM, normal capillary refill, pedal edema. Absent: tenderness, joint swelling, calf tenderness Back exam: Present: normal inspection Neurological exam: Present: alert, oriented X3, CN II-XII intact Psychiatric exam: Present: normal affect, normal mood Skin exam: Present: warm, dry, intact, normal color. Absent: rash Course Vital Signs 10/03/23 10/03/23 10/03/23 16:34 16:38 18:30 Temperature 97.8 F 98.0 F 98.7 F Pulse Rate 104 H 78 75 Respiratory 18 16 16 Rate Blood Pressure 100/62 106/73 113/65 O2 Sat by Pulse 100 95 98 Oximetry 10/03/23 10/03/23 10/03/23 19:22 19:29 20:00 Temperature Pulse Rate 80 79 Respiratory 16 18 18 Rate Blood Pressure 117/71 129/67 O2 Sat by Pulse 97 97 Oximetry 10/03/23 10/04/23 10/04/23 22:00 00:00 04:00 Temperature Pulse Rate 73 65 74 Respiratory 18 18 18 Rate Blood Pressure 113/65 134/77 111/71 O2 Sat by Pulse 95 96 97 Oximetry 10/04/23 10/04/23 10/04/23 06:00 06:55 07:08 Temperature 97.5 F L Pulse Rate 71 70 68 Respiratory 18 18 18 Rate Blood Pressure 104/64 113/69 115/65 O2 Sat by Pulse 98 96 Oximetry 10/04/23 10/04/23 10/04/23 07:28 07:50 07:52 Temperature 98.7 F Pulse Rate 70 71 Respiratory 18 18 Rate Blood Pressure 111/80 113/75 O2 Sat by Pulse 99 96 Oximetry 10/04/23 10/04/23 10/04/23 07:54 08:56 10:16 Temperature 98.0 F Pulse Rate 71 66 Respiratory 18 18 18 Rate Blood Pressure 124/78 127/79 O2 Sat by Pulse 97 Oximetry 10/04/23 10/04/23 10/04/23 11:42 12:57 14:43 Temperature Pulse Rate 61 66 66 Respiratory 18 18 Rate Blood Pressure 123/73 111/68 O2 Sat by Pulse 99 98 Oximetry 10/04/23 10/04/23 10/04/23 14:52 14:55 18:38 Temperature Pulse Rate 67 69 70 Respiratory 18 20 Rate Blood Pressure 101/65 119/77 O2 Sat by Pulse 97 98 Oximetry 10/04/23 19:48 Temperature 97 F L Pulse Rate 74 Respiratory 18 Rate Blood Pressure 121/106 O2 Sat by Pulse 98 Oximetry Medical Decision Making - Medical Decision Making Was pt. sent in by a medical professional or institution (, PA, AGATE SETTER, urgent care, hospital, or skilled nursing...) When possible be specific @ -Patient was sent in from cancer facility Did you speak to anyone other than the patient for history (EMS, parent, family, police, friend...)? What history was obtained from this source @ -Spoke with the patient's daughter for history Did you review nursing and triage notes (agree or disagree)? Why? @ -I reviewed and agree with nursing and triage notes Were old charts reviewed (outside hosp., previous admission, EMS record, old EKG, old radiological studies, urgent care reports/EKG's, skilled nursing records)? Report findings @ -I reviewed laboratory studies which were sent with the patient that were completed earlier today at the cancer center Differential Diagnosis (chest pain, altered mental status, abdominal pain women, abdominal pain men, vaginal bleeding, weakness, fever, dyspnea, syncope, headache, dizziness, GI bleed, back pain, seizure, CVA, palpatations, mental health, musculoskeletal)? @ -Differential Dyspnea: Coronary syndrome, arrhythmia, tamponade, asthma, COPD, pulmonary embolism, pneumonia, pneumothorax, pulmonary effusion, anaphylaxis, diabetic ketoacidosis, flailed chest, pulmonary contusion, diaphragmatic rupture, anemia, neuromuscular, this is not meant to be an all-inclusive list. EKG interpreted by me (3pts min.). @ -Yes and demonstrates sinus rhythm with a rate of 73. MO interval 119. QRS 93. QTc of 444. No acute ST segment elevations or depressions X-rays interpreted by me (1pt min.). @ -Yes and demonstrates possible developing pneumonia CT interpreted by me (1pt min.). @ -None done U/S interpreted by me (1pt. min.). @ -None done What testing was considered but not performed or refused? (CT, X-rays, U/S, labs)? Why? @ -None What meds were considered but not given or refused? Why? @ -None Did you discuss the management of the patient with other professionals (professionals i.e. , PA, AGATE SETTER, lab, RT, psych nurse, social services coordinator, salesforce specialist, teacher, navy senior officer, case management assistant)? Give summary @ -Spoke with Jaimie from [facility] for admission Was smoking cessation discussed for >3mins.? @ -No Was critical care preformed (if so, how long)? @ -No Were there social determinants of health that impacted care today? How? (Homelessness, low income, unemployed, alcoholism, drug addiction, transportation, low edu. Level, literacy, decrease access to med. care, intermediate, rehab)? @ -No Was there de-escalation of care discussed even if they declined (Discuss DNR or withdrawal of care, Hospice)? DNR status @ -No What co-morbidities impacted this encounter? (DM, HTN, Smoking, COPD, CAD, Cancer, CVA, ARF, Chemo, Hep., AIDS, mental health diagnosis, sleep apnea, morbid obesity)? @ -Bladder cancer with mets Was patient admitted / discharged? Hospital course, mention meds given and route, prescriptions, significant lab abnormalities, going to OR and other pertinent info. @ -Upon arrival patient seen and evaluated in room 21. Thorough history and physical exam was performed. IV access was established. Patient was dosed his home pain medications. Laboratory studies are conducted. Chest x-ray was performed. Patient does have COPD with possible developing pneumonia. He will be treated with breathing treatments and steroids. He does not require blood at this time and it is not transfused due to concern of putting the patient in volume overload. Patient will be admitted to Jaimie from [facility]. Oncology will be consulted Undiagnosed new problem with uncertain prognosis? @ -No Drug Therapy requiring intensive monitoring for toxicity (Heparin, Nitro, Insulin, Cardizem)? @ -No Were any procedures done? @ -No Diagnosis/symptom? @ -Acute respiratory insufficiency, acute pneumonia, leukocytosis, COPD exac erbation, bladder cancer with mets Acute, or Chronic, or Acute on Chronic? @ -Acute Uncomplicated (without systemic symptoms) or Complicated (systemic symptoms)? @ -Complicated Side effects of treatment? @ -No Exacerbation, Progression, or Severe Exacerbation? @ -No Poses a threat to life or bodily function? How? (Chest pain, [place], [place], pneumonia, PE, COPD, DKA, ARF, appy, cholecystitis, CVA, Diverticulitis, Homicidal, Suicidal, threat to staff... and all critical care pts) @ -No - Lab Data Result diagrams: 10/09/23 09:27 10/09/23 09:27 Lab Results 10/03/23 10/03/23 10/03/23 Range/Units 17:13 17:13 17:13 WBC 40.6 H (3.8-10.6) k/uL RBC 3.25 L (4.30-5.90) m/uL Hgb 7.0 L (13.0-17.5) gm/dL Hct 25.8 L (39.0-53.0) % MCV 79.4 L (80.0-100.0) fL MCH 21.5 L (25.0-35.0) pg MCHC 27.1 L (31.0-37.0) g/dL RDW 18.9 H (11.5-15.5) % Plt Count 487 H (150-450) k/uL MPV 8.2 Neutrophils % 92 % Lymphocytes % 2 % Monocytes % 4 % Eosinophils % 1 % Basophils % 0 % Neutrophils # 37.4 H (1.3-7.7) k/uL Lymphocytes # 0.7 L (1.0-4.8) k/uL Monocytes # 1.7 H (0-1.0) k/uL Eosinophils # 0.5 (0-0.7) k/uL Basophils # 0.1 (0-0.2) k/uL Manual Slide Review Performed Hypochromasia Marked Anisocytosis Slight Microcytosis Slight PT 13.5 H (10.0-12.5) sec INR 1.3 H (<1.2) APTT 28.6 (22.0-30.0) sec Sodium 133 L (137-145) mmol/L Potassium 4.6 (3.5-5.1) mmol/L Chloride 101 (98-107) mmol/L Carbon Dioxide 23 (22-30) mmol/L Anion Gap 9 mmol/L BUN 21 H (9-20) mg/dL Creatinine 0.62 L (0.66-1.25) mg/dL Est GFR (CKD-EPI)AfAm >90 (>60 ml/min/1.73 sqM) Est GFR (CKD-EPI)NonAf >90 (>60 ml/min/1.73 sqM) Glucose 102 H (74-99) mg/dL Lactic Ac Sepsis Rflx Plasma Lactic Acid [place] (0.7-2.0) mmol/L Calcium 8.4 (8.4-10.2) mg/dL Magnesium 1.9 (1.6-2.3) mg/dL Total Bilirubin 1.0 (0.2-1.3) mg/dL AST 26 (17-59) U/L ALT 19 (4-49) U/L Alkaline Phosphatase 398 H (38-126) U/L Troponin I (0.000-0.034) ng/mL NT-Pro-B Natriuret Pep 3110 pg/mL Total Protein 5.4 L (6.3-8.2) g/dL Albumin 2.6 L (3.5-5.0) g/dL Urine Color Urine Appearance (Clear) Urine pH (5.0-8.0) Ur Specific [place] (1.001-1.035) Urine Protein (Negative) Urine Glucose (UA) (Negative) Urine Ketones (Negative) Urine Blood (Negative) Urine Nitrite (Negative) Urine Bilirubin (Negative) Urine Urobilinogen (<2.0) mg/dL Ur Leukocyte Esterase (Negative) Urine RBC (0-5) /hpf Urine WBC (0-5) /hpf Urine Bacteria (None) /hpf Urine Mucus (None) /hpf Blood Type Blood Type Recheck Bld Type Recheck Status Antibody Screen Crossmatch Spec Expiration Date 10/03/23 10/03/23 10/03/23 Range/Units 17:13 17:13 18:39 WBC (3.8-10.6) k/uL RBC (4.30-5.90) m/uL Hgb (13.0-17.5) gm/dL Hct (39.0-53.0) % MCV (80.0-100.0) fL MCH (25.0-35.0) pg MCHC (31.0-37.0) g/dL RDW (11.5-15.5) % Plt Count (150-450) k/uL MPV Neutrophils % % Lymphocytes % % Monocytes % % Eosinophils % % Basophils % % Neutrophils # (1.3-7.7) k/uL Lymphocytes # (1.0-4.8) k/uL Monocytes # (0-1.0) k/uL Eosinophils # (0-0.7) k/uL Basophils # (0-0.2) k/uL Manual Slide Review Hypochromasia Anisocytosis Microcytosis PT (10.0-12.5) sec INR (<1.2) APTT (22.0-30.0) sec Sodium (137-145) mmol/L Potassium (3.5-5.1) mmol/L Chloride (98-107) mmol/L Carbon Dioxide (22-30) mmol/L Anion Gap mmol/L BUN (9-20) mg/dL Creatinine (0.66-1.25) mg/dL Est GFR (CKD-EPI)AfAm (>60 ml/min/1.73 sqM) Est GFR (CKD-EPI)NonAf (>60 ml/min/1.73 sqM) Glucose (74-99) mg/dL Lactic Ac Sepsis Rflx Y Plasma Lactic Acid [place] 4.4 H* (0.7-2.0) mmol/L Calcium (8.4-10.2) mg/dL Magnesium (1.6-2.3) mg/dL Total Bilirubin (0.2-1.3) mg/dL AST (17-59) U/L ALT (4-49) U/L Alkaline Phosphatase (38-126) U/L Troponin I <0.012 (0.000-0.034) ng/mL NT-Pro-B Natriuret Pep pg/mL Total Protein (6.3-8.2) g/dL Albumin (3.5-5.0) g/dL Urine Color Urine Appearance (Clear) Urine pH (5.0-8.0) Ur Specific [place] (1.001-1.035) Urine Protein (Negative) Urine Glucose (UA) (Negative) Urine Ketones (Negative) Urine Blood (Negative) Urine Nitrite (Negative) Urine Bilirubin (Negative) Urine Urobilinogen (<2.0) mg/dL Ur Leukocyte Esterase (Negative) Urine RBC (0-5) /hpf Urine WBC (0-5) /hpf Urine Bacteria (None) /hpf Urine Mucus (None) /hpf Blood Type Blood Type Recheck Bld Type Recheck Status Antibody Screen Crossmatch Spec Expiration Date 10/03/23 10/03/23 Range/Units 19:33 19:48 WBC (3.8-10.6) k/uL RBC (4.30-5.90) m/uL Hgb (13.0-17.5) gm/dL Hct (39.0-53.0) % MCV (80.0-100.0) fL MCH (25.0-35.0) pg MCHC (31.0-37.0) g/dL RDW (11.5-15.5) % Plt Count (150-450) k/uL MPV Neutrophils % % Lymphocytes % % Monocytes % % Eosinophils % % Basophils % % Neutrophils # (1.3-7.7) k/uL Lymphocytes # (1.0-4.8) k/uL Monocytes # (0-1.0) k/uL Eosinophils # (0-0.7) k/uL Basophils # (0-0.2) k/uL Manual Slide Review Hypochromasia Anisocytosis Microcytosis PT (10.0-12.5) sec INR (<1.2) APTT (22.0-30.0) sec Sodium (137-145) mmol/L Potassium (3.5-5.1) mmol/L Chloride (98-107) mmol/L Carbon Dioxide (22-30) mmol/L Anion Gap mmol/L BUN (9-20) mg/dL Creatinine (0.66-1.25) mg/dL Est GFR (CKD-EPI)AfAm (>60 ml/min/1.73 sqM) Est GFR (CKD-EPI)NonAf (>60 ml/min/1.73 sqM) Glucose (74-99) mg/dL Lactic Ac Sepsis Rflx Plasma Lactic Acid [place] (0.7-2.0) mmol/L Calcium (8.4-10.2) mg/dL Magnesium (1.6-2.3) mg/dL Total Bilirubin (0.2-1.3) mg/dL AST (17-59) U/L ALT (4-49) U/L Alkaline Phosphatase (38-126) U/L Troponin I (0.000-0.034) ng/mL NT-Pro-B Natriuret Pep pg/mL Total Protein (6.3-8.2) g/dL Albumin (3.5-5.0) g/dL Urine Color Yellow Urine Appearance Clear (Clear) Urine pH 6.0 (5.0-8.0) Ur Specific [place] 1.018 (1.001-1.035) Urine Protein 1+ H (Negative) Urine Glucose (UA) Negative (Negative) Urine Ketones Negative (Negative) Urine Blood Negative (Negative) Urine Nitrite Negative (Negative) Urine Bilirubin Negative (Negative) Urine Urobilinogen 6.0 (<2.0) mg/dL Ur Leukocyte Esterase Moderate H (Negative) Urine RBC 2 (0-5) /hpf Urine WBC 23 H (0-5) /hpf Urine Bacteria Moderate H (None) /hpf Urine Mucus Rare H (None) /hpf Blood Type A Positive Blood Type Recheck A Pos Bld Type Recheck Status No Antibody Screen NEGATIVE Crossmatch See Detail Spec Expiration Date 10/06/20232347 Disposition Clinical Impression: Shortness of breath, Bladder cancer, Leukocytosis, Lactic acidosis, Anemia, Pulmonary congestion Disposition: ADMITTED IP TO THIS [facility] Condition: Fair Is patient prescribed a controlled substance at d/c from ED?: No Time of Disposition: 20:32 Decision to Admit Reason: Admit from EC Decision Date: 10/03/23 Decision Time: 20:32
[2023-10-03] MEDS ORDERED: NALOXONE 0.4 MG/ML 1 ML VIAL IV PRN (20:33)
[2023-10-03] MEDS ORDERED: IPRATROPIUM-ALBUTEROL 3 ML NEB INHALATION PRN (20:37)
[2023-10-03] MEDS ORDERED: PNEUMONIA PROTOCOL UTILIZED 1 EACH MISC PO PRN (20:37)
[2023-10-03] MEDS ORDERED: MAGNESIUM HYDROXIDE 2,400 MG/30 ML CUP PO PRN (20:38)
[2023-10-03 21:29] LABS: Appearance,Urine Clear (Clear); Bacteria,Urine Moderate /hpf; Bilirubin,Urine Negative (Negative); Blood,Urine Negative (Negative); Color,Urine Yellow; Glucose,Urine (UA) Negative (Negative); Ketones,Urine Negative (Negative); Leukocyte Esterase,Urine Moderate (Negative); Mucus,Urine Rare /hpf; Nitrite,Urine Negative (Negative); Protein,Urine 1+ (Negative); RBC,Urine 2 /hpf (0-5); Specific Gravity,Urine 1.018 (1.001-1.035); WBC,Urine 23 /hpf (0-5)
[2023-10-03] MEDS: SENNOSIDES-DOCUSATE SODIUM 1 EACH TAB PO SCH (21:35)
[2023-10-03] MEDS: METOPROLOL TARTRATE 50 MG TAB PO SCH (21:36)
[2023-10-03] MEDS: APIXABAN 2.5 MG TABLET PO SCH (21:36)
[2023-10-03] MEDS: SUCRALFATE 1 GM TAB PO SCH (23:07)
[2023-10-03] MEDS: AZITHROMYCIN 500 MG in SODIUM CHLORIDE 0.9% 250 ML IVPB STA (23:08)
[2023-10-04] MEDS: HYDROcodone/APAP 10-325MG 1 EACH TAB PO PRN (04:54)
[2023-10-04 04:57] LABS: African American GFR (CKD) >90 (>60 ml/min/1.73 sqM); Anion Gap 8 mmol/L; Blood Urea Nitrogen 21 mg/dL (9-20); Calcium 8.2 mg/dL (8.4-10.2); Carbon Dioxide 22 mmol/L (22-30); Chloride 103 mmol/L (98-107); Glucose 93 mg/dL (74-99); Non-African American GFR(CKD) >90 (>60 ml/min/1.73 sqM); Potassium 4.4 mmol/L (3.5-5.1); Sodium 133 mmol/L (137-145)
[2023-10-04 05:24] LABS: Anisocytosis Slight; Hypochromasia Marked; MCH 22.7 pg (25.0-35.0); MCHC 28.5 g/dL (31.0-37.0); MCV 79.7 fL (80.0-100.0); Mean Platelet Volume 9.4; Microcytosis Slight; Platelet Count 427 k/uL (150-450); RBC 2.75 m/uL (4.30-5.90); RDW 18.8 % (11.5-15.5); WBC 35.8 k/uL (3.8-10.6)
[2023-10-04 05:30] LABS: HGB 6.3 gm/dL (13.0-17.5)
[2023-10-04 06:28] LABS: Band Neutrophils % 7 %; Lymphocytes # (M) 0.72 k/uL (1.0-4.8); Monocytes # (M) 1.07 k/uL (0-1.0); Neutrophils % (M) 88 %; Nucleated Red Blood Cells 0 /100 WBC (0-0); Total Cells Counted 100
--- NOTE | 2023-10-04 07:45 | XR ---
EXAMINATION TYPE: XR chest 1V portable DATE OF EXAM: 10/04/2023 COMPARISON: NONE HISTORY: Shortness of breath TECHNIQUE: Frontal and lateral views of the chest are obtained. FINDINGS: Scattered senescent parenchymal changes noted. Hyperinflation compatible with COPD. Perihilar and upper lobe scattered infiltrates noted. Correlate for underlying pneumonia. Heart size is stable. Mediastinal structures are stable and grossly unremarkable. No evidence for hilar prominence. Degenerative changes dorsal spine. IMPRESSION: 1. Perihilar and upper lobe scattered infiltrates noted. Correlate for underlying pneumonia.
[2023-10-04] MEDS: AMIODARONE 200 MG TAB PO SCH (08:58)
[2023-10-04] MEDS: polyethylene glycoL 3350 17 GM POWD.PACK PO SCH (08:58)
[2023-10-04 10:58] LABS: % Iron Saturation 12.77 (15.00-50.00)
[2023-10-04] MEDS ORDERED: DEXTROSE 50% SYRINGE 50 ML IVP PRN ×2 (13:16)
[2023-10-04 14:13] VITALS: BMI 18.1
[2023-10-04] MEDS: IPRATROPIUM-ALBUTEROL 3 ML NEB INHALATION SCH (14:42)
[2023-10-04] MEDS: methylPREDNISolone SOD SUCCI 125 MG/2 ML VIAL IV SCH (14:52)
[2023-10-04] MEDS: PANTOPRAZOLE 40 MG TABLET PO SCH (14:53)
--- NOTE | 2023-10-04 14:55 | P.CNPUL ---
History of Present Illness Consult date: 10/04/23 Requesting physician: Carlos Hankins Reason for consult: other Chief complaint: Shortness of breath and leg edema History of present illness: Pulmonary consult dated October 04, 2023. 63-year-old male with a history of metastatic bladder cancer, who presents to the emergency department, on October 02, complaining of shortness of breath, and lower extremity edema. The patient apparently went to his oncologist office, to receive immunotherapy, but apparently was having significant weakness, shortness of breath, and lower extremity edema. He was also found to be anemic and for that reason was scented to the emergency department to be evaluated. The patient was recently hospitalized for similar episode. Currently, he is seen in the emergency department, room 21. The patient is currently on 2 L of oxygen. Saturations are 98%. It appears that he received a blood transfusion. Labs include a white count of 35.8, hemoglobin 6.3, hematocrit 22, and plate, hematocrit 22, and platelet count 427,000 427,000. Sodium 133, potassium 4.4, chlorides 103, CO2 22, BUN 21, and creatinine 0.65. Chest x-ray is consistent with perihilar infiltrates. Review of Systems REVIEW OF SYSTEMS: CONSTITUTIONAL: Weakness. NEUROLOGIC: [ Negative.] HEENT: [ Negative.] CARDIAC: Lower extremity edema. PULMONARY: Shortness of breath. GI: [Negative.] : [Negative.] RHEUMATOLOGIC: [ Negative.] IMMUNOLOGIC: [ Negative.] ENDOCRINE: [Negative. 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 left nephrostomy tube (2023) Past Anesthesia/Blood Transfusion Reactions: No Reported Reaction Past Psychological History: No Psychological Hx Reported Smoking Status: Former smoker Past Alcohol Use History: None Reported Past Drug Use History: None Reported - Past Family History Father Family Medical History: Cancer Additional Family Medical History / Comment(s): lung cancer, smoker Medications and Allergies Home Medications Medication Instructions Recorded Confirmed Type Ondansetron [Zofran] 4 mg PO Q4H PRN 05/25/23 10/03/23 History HYDROcodone/APAP 10-325MG [[place] 1 tab PO Q4HR PRN 06/06/23 10/03/23 History 10-325] Apixaban [Eliquis] 2.5 mg PO BID 07/01/23 10/03/23 History Budesonide/Formoterol Fumarate 2 puff INHALATION RT-BID PRN 07/01/23 10/03/23 History [Symbicort 160-4.5 Mcg Inhaler] Ipratropium-Albuterol Nebulize 3 ml INHALATION RT-QID PRN 07/01/23 10/03/23 History [Duoneb 0.5 mg-3 mg/3 ml Soln] Metoprolol Tartrate [Lopressor] 50 mg PO TID 30 Days #90 tab 07/06/23 10/03/23 Rx Amiodarone [Cordarone] 200 mg PO DAILY 07/19/23 10/03/23 History Albuterol Sulfate [Albuterol 2 puff INHALATION RT-Q4H PRN 09/17/23 10/03/23 History Sulfate Hfa] Magnesium Hydroxide [Milk of 2,400 mg PO BID PRN ml 09/24/23 10/03/23 Rx Magnesia] Sucralfate [Carafate] 1 gm PO AC-BID #60 tab 09/24/23 10/03/23 Rx polyethylene glycoL 3350 [Miralax] 17 gm PO DAILY #30 packet 09/24/23 10/03/23 Rx Sennosides-Docusate Sodium 2 tab PO BID 10/03/23 10/03/23 History [Senokot-S] Allergies Allergy/AdvReac Type Severity Reaction Status Date / Time Iodinated Contrast Media Allergy Neck Verified 10/03/23 19:38 swelling/Rash Physical Exam Osteopathic Statement: *. No significant issues noted on an osteopathic structural exam other than those noted in the History and Physical/Consult. Vitals: Vital Signs Temp Pulse Resp BP Pulse Ox 10/04/23 12:57 66 18 111/68 98 10/04/23 11:42 61 18 123/73 99 10/04/23 10:16 98.0 F 66 18 127/79 10/04/23 08:56 71 18 124/78 97 10/04/23 07:54 18 06/27/24 07:52 71 18 113/75 96 10/04/23 07:50 99 10/04/23 07:28 98.7 F 70 18 111/80 10/04/23 07:08 97.5 F L 68 18 115/65 10/04/23 06:55 70 18 113/69 96 10/04/23 06:00 71 18 104/64 98 10/04/23 04:00 74 18 111/71 97 10/04/23 00:00 65 18 134/77 96 10/03/23 22:00 73 18 113/65 95 10/03/23 20:00 79 18 129/67 97 10/03/23 19:29 80 18 117/71 97 10/03/23 19:22 16 10/03/23 18:30 98.7 F 75 16 113/65 98 10/03/23 16:38 98.0 F 78 16 106/73 95 10/03/23 16:34 97.8 F 104 H 18 100/62 100 Intake and Output 10/03/23 10/04/23 10/04/23 22:59 06:59 14:59 Intake Total 0 310 Balance 0 310 Intake: Blood Product 0 310 Rc As-1 Unit 0 310 [id number] Other: Weight 62.596 kg 62.596 kg No acute distress, oriented 3. Patient wearing 2 L of oxygen. No shortness of breath noted. HEENT examination is grossly unremarkable. Mucous membranes are moist. No oral lesions. Neck supple. Full range of motion. No adenopathy thyromegaly or neck vein distention. Cardiovascular examination reveals regular rhythm rate. S1-S2 normal. No S3 or S4. No discernible murmur noted. Lungs reveal clear breath sounds. Her sounds are equal bilaterally. No adventitious lung sounds including wheezes rhonchi or crackles. Abdomen soft bowel sounds are heard. No masses or tenderness. Extremities are intact. No cyanosis clubbing or edema. Skin is without rash or lesion. Patient is pale. Neurologic examination is brief but nonfocal. Results - Laboratory Findings CBC and BMP: 10/04/23 04:08 10/04/23 04:08 PT/INR, D-dimer PT 13.5 sec (10.0-12.5) H 10/03/23 17:13 INR 1.3 (<1.2) H 10/03/23 17:13 Abnormal lab findings: Abnormal Labs 10/03/23 10/03/23 10/03/23 17:13 17:13 17:13 WBC 40.6 H RBC 3.25 L Hgb 7.0 L Hct 25.8 L MCV 79.4 L MCH 21.5 L MCHC 27.1 L RDW 18.9 H Plt Count 487 H Neutrophils # 37.4 H Neutrophils # (Manual) Lymphocytes # 0.7 L Lymphocytes # (Manual) Monocytes # 1.7 H Monocytes # (Manual) PT 13.5 H INR 1.3 H Sodium 133 L BUN 21 H Creatinine 0.62 L Glucose 102 H Plasma Lactic Acid Milad Calcium Iron TIBC % Saturation Transferrin Ferritin Alkaline Phosphatase 398 H Total Protein 5.4 L Albumin 2.6 L Vitamin B12 Urine Protein Ur Leukocyte Esterase Urine WBC Urine Bacteria Urine Mucus Crossmatch 10/03/23 10/03/23 10/03/23 17:13 19:33 19:48 WBC RBC Hgb Hct MCV MCH MCHC RDW Plt Count Neutrophils # Neutrophils # (Manual) Lymphocytes # Lymphocytes # (Manual) Monocytes # Monocytes # (Manual) PT INR Sodium BUN Creatinine Glucose Plasma Lactic Acid Milad 4.4 H* Calcium Iron TIBC % Saturation Transferrin Ferritin Alkaline Phosphatase Total Protein Albumin Vitamin B12 Urine Protein 1+ H Ur Leukocyte Esterase Moderate H Urine WBC 23 H Urine Bacteria Moderate H Urine Mucus Rare H Crossmatch See Detail 10/03/23 10/04/23 10/04/23 21:05 00:56 04:08 WBC 35.8 H RBC 2.75 L Hgb 6.3 L* Hct 22.0 L MCV 79.7 L MCH 22.7 L MCHC 28.5 L RDW 18.8 H Plt Count Neutrophils # Neutrophils # (Manual) 34.00 H Lymphocytes # Lymphocytes # (Manual) 0.72 L Monocytes # Monocytes # (Manual) 1.07 H PT INR Sodium BUN Creatinine Glucose Plasma Lactic Acid Milad 2.4 H* 3.7 H* Calcium Iron TIBC % Saturation Transferrin Ferritin Alkaline Phosphatase Total Protein Albumin Vitamin B12 Urine Protein Ur Leukocyte Esterase Urine WBC Urine Bacteria Urine Mucus Crossmatch 10/04/23 10/04/23 10/04/23 04:08 04:08 07:52 WBC RBC Hgb Hct MCV MCH MCHC RDW Plt Count Neutrophils # Neutrophils # (Manual) Lymphocytes # Lymphocytes # (Manual) Monocytes # Monocytes # (Manual) PT INR Sodium 133 L BUN 21 H Creatinine 0.65 L Glucose Plasma Lactic Acid Milad 3.8 H* Calcium 8.2 L Iron 12 L TIBC 94 L % Saturation 12.77 L Transferrin 67.5 L Ferritin 5203.0 H Alkaline Phosphatase Total Protein Albumin Vitamin B12 2485.0 H Urine Protein Ur Leukocyte Esterase Urine WBC Urine Bacteria Urine Mucus Crossmatch - Diagnostic Findings Chest x-ray: image reviewed Assessment and Plan Assessment: History of metastatic bladder cancer. Weakness secondary to anemia. History of atrial fibrillation. History of COPD. Prior history of tobacco use. Plan: Plan dated October 04, 2023. The patient is seen in the emergency department, room 21. He is currently on 2 L of oxygen. The patient is not manifesting any signs or symptoms of respiratory distress. The patient has received 1 unit of packed red blood cells. Labs, x-rays, and medications are reviewed. The patient's prognosis is guarded. Will add some breathing treatments to the patient's regimen. No additional recommendations at this time. We will continue to follow, and make recommendations where appropriate. Prognosis is guarded. Labs, x-rays, and all medications have been reviewed. Time with Patient: Greater than 30
[2023-10-04 16:02] LABS: Anisocytosis Slight; Basophils # (A) 0.2 k/uL (0-0.2); Basophils % (A) 0 %; Eosinophils # (A) 0.3 k/uL (0-0.7); Eosinophils % (A) 1 %; HCT 28.7 % (39.0-53.0); Hypochromasia Marked; Lymphocytes # (A) 0.5 k/uL (1.0-4.8); Lymphocytes % (A) 1 %; MCH 23.5 pg (25.0-35.0); MCHC 28.7 g/dL (31.0-37.0); MCV 81.7 fL (80.0-100.0); Mean Platelet Volume 8.5; Microcytosis Slight; Monocytes # (A) 1.9 k/uL (0-1.0); Monocytes % (A) 5 %; Neutrophils # (A) 35.8 k/uL (1.3-7.7); Neutrophils % (A) 92 %; Platelet Count 345 k/uL (150-450); Poikilocytosis Slight; RBC 3.51 m/uL (4.30-5.90); RDW 18.3 % (11.5-15.5)
[2023-10-04 16:03] LABS: HGB 8.2 gm/dL (13.0-17.5)
[2023-10-04 18:32] LABS: Glucose,Whole Blood 156 mg/dL (70-110)
[2023-10-04] MEDS: INSULIN ASPART (NovoLOG) 100 UNIT/ML VIAL SQ SCH (18:41)
[2023-10-04] MEDS: AZITHROMYCIN 500 MG TAB PO SCH (21:19)
[2023-10-04 21:20] LABS: Glucose,Whole Blood 178 mg/dL (70-110)
[2023-10-04 21:58] LABS: Anisocytosis Slight; HGB 8.2 gm/dL (13.0-17.5); Hypochromasia Marked; MCH 22.8 pg (25.0-35.0); MCHC 27.2 g/dL (31.0-37.0); MCV 83.7 fL (80.0-100.0); Mean Platelet Volume 8.3; Platelet Count 438 k/uL (150-450); Poikilocytosis Slight; RBC 3.59 m/uL (4.30-5.90); RDW 18.4 % (11.5-15.5); WBC 40.5 k/uL (3.8-10.6)
[2023-10-04 22:24] LABS: Band Neutrophils % 5 %; Lymphocytes # (M) 0.41 k/uL (1.0-4.8); Monocytes # (M) 0.41 k/uL (0-1.0); Neutrophils % (M) 93 %; Nucleated Red Blood Cells 0 /100 WBC (0-0); Total Cells Counted 100; Toxic Vacuolation Present
[2023-10-04 22:25] LABS: Polychromasia Present
--- NOTE | 2023-10-04 22:40 | HP ---
HISTORY AND PHYSICAL CHIEF COMPLAINT: Shortness of breath and swollen legs. HISTORY OF PRESENT ILLNESS: This is a 63-year-old gentleman with a past medical history of multiple medical problems including metastatic bladder cancer involving the lung, liver, and osseous areas, recently admitted with lower abdominal pain possibly related to a bladder mass. The patient also has UTI recently. Currently, the patient is complaining of multiple symptomatology including shortness of breath, fever and bilateral swelling legs, emaciation, weakness. The patient is admitted for further evaluation, bilateral pneumonia suspected. There is no history of any fever, rigors, or chills at this time. PAST MEDICAL HISTORY: Reviewed include metastatic bladder cancer, atrial fibrillation, COPD. HOME MEDICATIONS: Reviewed include MiraLAX, dose and rest of medications reviewed. ALLERGIES: Iodinated contrast. FAMILY HISTORY: History of lung cancer, smoking. SOCIAL HISTORY: Previous history of smoking. REVIEW OF SYSTEMS: A 14-point review is negative except as mentioned earlier. PHYSICAL EXAMINATION: VITAL SIGNS: Pulse is 66, blood pressure 111/68, respirations 18. HEENT: Conjunctivae normal. NECK: No jugular venous distention. CARDIOVASCULAR: S1, S2. RESPIRATIONS: Diminished at the bases, bilateral scattered rhonchi and crackles. ABDOMEN: Soft, nontender. LEGS: No edema, no swelling. NERVOUS SYSTEM: Diffusely weak and wasted. SKIN: No ulcer, rash, bleeding. JOINTS: No active deforming arthropathy. LABORATORY DATA: WBC 35.8, hemoglobin 6.3, rest of the labs are noted. ASSESSMENT: 1. Chronic obstructive pulmonary disease acute exacerbation with acute bilateral pneumonia, consider gram-negative. 2. Severe anemia, microcytic possibly secondary to malignancy. 3. Elevated WBC. 4. Hyponatremia. 5. Severe malnutrition. 6. Metastatic bladder cancer with lungs and osseous metastasis. 7. Atrial fibrillation. 8. Chronic obstructive pulmonary disease. 9. Multiple complex medical issues. 10.Left nephrostomy tube. RECOMMENDATIONS: This 63-year-old gentleman presented with multiple complex medical issues, we will monitor the patient closely. Continue the current medications. I would recommend empiric antibiotics. Otherwise I would also recommend intensive bronchodilators, steroids. Hematology, oncology consultation; infectious disease consultation. Prognosis guarded because of multiple complex medical issues. I would also recommend Pulmonary consult also. Serum procalcitonin has been requested. The patient is currently full code. Home medications will be continued once they are confirmed. Further recommendations to follow. See orders for details. PT OT evaluation, consider ECF rehab as well. MMODL / IJN: [id number] /
--- NOTE | 2023-10-04 22:53 | P.CONS ---
History of Present Illness - Reason for Consult Consult date: 10/04/23 Sepsis Requesting physician: Barbara Conde - Chief Complaint Weakness and abnormal lab x 1 day - History of Present Illness Patient is a 63-year-old male with a past medical history significant for metastatic bladder cancer on chemo COPD atrial fibrillation, the patient went to the oncology clinic today to receive immunotherapy however the patient complaining of increased weakness and increased lower extremity swelling concerning for anemia and need for transfusion for the patient was sent to the ER on presentation to the hospital patient was afebrile and no fever have recorded subsequently patient was not tachycardic or hypotensive no O2 sat documented on room air currently 98% on 2 L nasal cannula oxygen patient did have a white count of 3 9000 hemoglobin was 8.2 influenza RSV and COVID testing was negative lactic acid is 3.8 liver enzymes normal urine was positive patient did have a chest x-ray mild cardiomegaly COPD interstitial prominence colitis with mild pulmonary venous congestion patchy left basilar opacity cannot exclude early pneumonia patient has been admitted to hospital he was started on Rocephin and Zithromax infectious disease was consulted for further management of antibiotic therapy patient has received Solu-Medrol 60 every 6 as well Review of Systems Positive point and negatives has been mentioned in the HPI, complete review of systems was performed and all other systems are negative 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 left nephrostomy tube (2023) Past Anesthesia/Blood Transfusion Reactions: No Reported Reaction Past Psychological History: No Psychological Hx Reported Smoking Status: Former smoker Past Alcohol Use History: None Reported Past Drug Use History: None Reported - Past Family History Father Family Medical History: Cancer Additional Family Medical History / Comment(s): lung cancer, smoker Medications and Allergies Home Medications Medication Instructions Recorded Confirmed Type Ondansetron [Zofran] 4 mg PO Q4H PRN 05/25/23 10/13/23 History HYDROcodone/APAP 10-325MG [[place] 1 tab PO Q4HR PRN 06/06/23 10/13/23 History 10-325] Apixaban [Eliquis] 2.5 mg PO BID 07/01/23 10/13/23 History Budesonide/Formoterol Fumarate 2 puff INHALATION RT-BID PRN 07/01/23 10/13/23 History [Symbicort 160-4.5 Mcg Inhaler] Ipratropium-Albuterol Nebulize 3 ml INHALATION RT-QID PRN 07/01/23 10/13/23 History [Duoneb 0.5 mg-3 mg/3 ml Soln] Amiodarone [Cordarone] 200 mg PO DAILY 07/19/23 10/13/23 History Albuterol Sulfate [Albuterol 2 puff INHALATION RT-Q4H PRN 09/17/23 10/13/23 History Sulfate Hfa] Magnesium Hydroxide [Milk of 2,400 mg PO BID PRN ml 09/24/23 10/13/23 Rx Magnesia] Sucralfate [Carafate] 1 gm PO AC-BID #60 tab 09/24/23 10/13/23 Rx polyethylene glycoL 3350 [Miralax] 17 gm PO DAILY #30 packet 09/24/23 10/13/23 Rx Sennosides-Docusate Sodium 2 tab PO BID 10/03/23 10/13/23 History [Senokot-S] Folic Acid 1 mg PO DAILY@1200 #30 tab 10/09/23 10/13/23 Rx Ipratropium-Albuterol Nebulize 3 ml INHALATION RT-QID #100 each 10/09/23 10/13/23 Rx [Duoneb 0.5 mg-3 mg/3 ml Soln] Metoprolol Tartrate [Lopressor] 75 mg PO TID 30 Days #180 tab 10/09/23 10/13/23 Rx Thiamine [Vitamin B-1] 100 mg PO DAILY@1200 #30 tab 10/09/23 10/13/23 Rx cefUROXime axetiL [Ceftin] 500 mg PO BID 5 Days #10 tab 10/09/23 10/13/23 Rx Multivitamins, Thera [Multivitamin 1 tab PO DAILY@1200 10/13/23 10/13/23 History (formulary)] Nystatin 100,000 Unit/ml Susp 500,000 unit PO DIRECTED 10/13/23 10/13/23 History [Mycostatin Oral Susp] Allergies Allergy/AdvReac Type Severity Reaction Status Date / Time Iodinated Contrast Media Allergy Neck Verified 10/13/23 12:46 swelling/Rash Physical Exam Vitals: Vital Signs Temp Pulse Resp BP Pulse Ox 10/04/23 14:55 69 18 101/65 97 10/04/23 14:52 67 10/04/23 14:43 66 10/04/23 12:57 66 18 111/68 98 10/04/23 11:42 61 18 123/73 99 10/04/23 10:16 98.0 F 66 18 127/79 10/04/23 08:56 71 18 124/78 97 10/04/23 07:54 18 10/04/23 07:52 71 18 113/75 96 10/04/23 07:50 99 10/04/23 07:28 98.7 F 70 18 111/80 10/04/23 07:08 97.5 F L 68 18 115/65 10/04/23 06:55 70 18 113/69 96 10/04/23 06:00 71 18 104/64 98 10/04/23 04:00 74 18 111/71 97 10/04/23 00:00 65 18 134/77 96 10/03/23 22:00 73 18 113/65 95 10/03/23 20:00 79 18 129/67 97 10/03/23 19:29 80 18 117/71 97 10/03/23 19:22 16 10/03/23 18:30 98.7 F 75 16 113/65 98 10/03/23 16:38 98.0 F 78 16 106/73 95 10/03/23 16:34 97.8 F 104 H 18 100/62 100 Intake and Output 10/04/23 10/04/23 10/04/23 06:59 14:59 22:59 Intake Total 0 310 Balance 0 310 Intake: Blood Product 0 310 Rc As-1 Unit 0 310 [id number] Other: Weight 62.596 kg GENERAL DESCRIPTION: Middle-aged male lying in bed, no distress. No tachypnea or accessory muscle of respiration use. HEENT: Shows Pallor , no scleral icterus. Oral mucous membrane is dry. No pharyngeal erythema or thrush NECK: Trachea central, no thyromegaly. LUNGS: Unlabored breathing. Decreased breath sound at the base HEART: S1, S2, regular rate and rhythm. No loud murmur ABDOMEN: Soft, no tenderness , guarding or rigidity, no organomegaly EXTREMITIES: No edema of feet. SKIN: No rash, no masses palpable. NEUROLOGICAL: The patient is awake, alert, oriented x3, mood and affect normal. Results CBC & Chem 7: 10/09/23 09:27 10/09/23 09:27 Labs: Abnormal Lab Results - Last 24 Hours (Table) 10/03/23 10/03/23 10/03/23 Range/Units 17:13 17:13 17:13 WBC 40.6 H (3.8-10.6) k/uL RBC 3.25 L (4.30-5.90) m/uL Hgb 7.0 L (13.0-17.5) gm/dL Hct 25.8 L (39.0-53.0) % MCV 79.4 L (80.0-100.0) fL MCH 21.5 L (25.0-35.0) pg MCHC 27.1 L (31.0-37.0) g/dL RDW 18.9 H (11.5-15.5) % Plt Count 487 H (150-450) k/uL Neutrophils # 37.4 H (1.3-7.7) k/uL Neutrophils # (Manual) (1.3-7.7) k/uL Lymphocytes # 0.7 L (1.0-4.8) k/uL Lymphocytes # (Manual) (1.0-4.8) k/uL Monocytes # 1.7 H (0-1.0) k/uL Monocytes # (Manual) (0-1.0) k/uL PT 13.5 H (10.0-12.5) sec INR 1.3 H (<1.2) Sodium 133 L (137-145) mmol/L BUN 21 H (9-20) mg/dL Creatinine 0.62 L (0.66-1.25) mg/dL Glucose 102 H (74-99) mg/dL Plasma Lactic Acid Milad (0.7-2.0) mmol/L Calcium (8.4-10.2) mg/dL Iron (65-175) UG/DL TIBC (228-460) UG/DL % Saturation (15.00-50.00) Transferrin (204.0-354.0) mg/dL Ferritin (22.0-322.0) ng/mL Alkaline Phosphatase 398 H (38-126) U/L Total Protein 5.4 L (6.3-8.2) g/dL Albumin 2.6 L (3.5-5.0) g/dL Vitamin B12 (200.0-944.0) pg/mL Urine Protein (Negative) Ur Leukocyte Esterase (Negative) Urine WBC (0-5) /hpf Urine Bacteria (None) /hpf Urine Mucus (None) /hpf Crossmatch 10/03/23 10/03/23 10/03/23 Range/Units 17:13 19:33 19:48 WBC (3.8-10.6) k/uL RBC (4.30-5.90) m/uL Hgb (13.0-17.5) gm/dL Hct (39.0-53.0) % MCV (80.0-100.0) fL MCH (25.0-35.0) pg MCHC (31.0-37.0) g/dL RDW (11.5-15.5) % Plt Count (150-450) k/uL Neutrophils # (1.3-7.7) k/uL Neutrophils # (Manual) (1.3-7.7) k/uL Lymphocytes # (1.0-4.8) k/uL Lymphocytes # (Manual) (1.0-4.8) k/uL Monocytes # (0-1.0) k/uL Monocytes # (Manual) (0-1.0) k/uL PT (10.0-12.5) sec INR (<1.2) Sodium (137-145) mmol/L BUN (9-20) mg/dL Creatinine (0.66-1.25) mg/dL Glucose (74-99) mg/dL Plasma Lactic Acid Milad 4.4 H* (0.7-2.0) mmol/L Calcium (8.4-10.2) mg/dL Iron (65-175) UG/DL TIBC (228-460) UG/DL % Saturation (15.00-50.00) Transferrin (204.0-354.0) mg/dL Ferritin (22.0-322.0) ng/mL Alkaline Phosphatase (38-126) U/L Total Protein (6.3-8.2) g/dL Albumin (3.5-5.0) g/dL Vitamin B12 (200.0-944.0) pg/mL Urine Protein 1+ H (Negative) Ur Leukocyte Esterase Moderate H (Negative) Urine WBC 23 H (0-5) /hpf Urine Bacteria Moderate H (None) /hpf Urine Mucus Rare H (None) /hpf Crossmatch See Detail 10/03/23 10/04/23 10/04/23 Range/Units 21:05 00:56 04:08 WBC 35.8 H (3.8-10.6) k/uL RBC 2.75 L (4.30-5.90) m/uL Hgb 6.3 L* (13.0-17.5) gm/dL Hct 22.0 L (39.0-53.0) % MCV 79.7 L (80.0-100.0) fL MCH 22.7 L (25.0-35.0) pg MCHC 28.5 L (31.0-37.0) g/dL RDW 18.8 H (11.5-15.5) % Plt Count (150-450) k/uL Neutrophils # (1.3-7.7) k/uL Neutrophils # (Manual) 34.00 H (1.3-7.7) k/uL Lymphocytes # (1.0-4.8) k/uL Lymphocytes # (Manual) 0.72 L (1.0-4.8) k/uL Monocytes # (0-1.0) k/uL Monocytes # (Manual) 1.07 H (0-1.0) k/uL PT (10.0-12.5) sec INR (<1.2) Sodium (137-145) mmol/L BUN (9-20) mg/dL Creatinine (0.66-1.25) mg/dL Glucose (74-99) mg/dL Plasma Lactic Acid Milad 2.4 H* 3.7 H* (0.7-2.0) mmol/L Calcium (8.4-10.2) mg/dL Iron (65-175) UG/DL TIBC (228-460) UG/DL % Saturation (15.00-50.00) Transferrin (204.0-354.0) mg/dL Ferritin (22.0-322.0) ng/mL Alkaline Phosphatase (38-126) U/L Total Protein (6.3-8.2) g/dL Albumin (3.5-5.0) g/dL Vitamin B12 (200.0-944.0) pg/mL Urine Protein (Negative) Ur Leukocyte Esterase (Negative) Urine WBC (0-5) /hpf Urine Bacteria (None) /hpf Urine Mucus (None) /hpf Crossmatch 10/04/23 10/04/23 10/04/23 Range/Units 04:08 04:08 07:52 WBC (3.8-10.6) k/uL RBC (4.30-5.90) m/uL Hgb (13.0-17.5) gm/dL Hct (39.0-53.0) % MCV (80.0-100.0) fL MCH (25.0-35.0) pg MCHC (31.0-37.0) g/dL RDW (11.5-15.5) % Plt Count (150-450) k/uL Neutrophils # (1.3-7.7) k/uL Neutrophils # (Manual) (1.3-7.7) k/uL Lymphocytes # (1.0-4.8) k/uL Lymphocytes # (Manual) (1.0-4.8) k/uL Monocytes # (0-1.0) k/uL Monocytes # (Manual) (0-1.0) k/uL PT (10.0-12.5) sec INR (<1.2) Sodium 133 L (137-145) mmol/L BUN 21 H (9-20) mg/dL Creatinine 0.65 L (0.66-1.25) mg/dL Glucose (74-99) mg/dL Plasma Lactic Acid Milad 3.8 H* (0.7-2.0) mmol/L Calcium 8.2 L (8.4-10.2) mg/dL Iron 12 L (65-175) UG/DL TIBC 94 L (228-460) UG/DL % Saturation 12.77 L (15.00-50.00) Transferrin 67.5 L (204.0-354.0) mg/dL Ferritin 5203.0 H (22.0-322.0) ng/mL Alkaline Phosphatase (38-126) U/L Total Protein (6.3-8.2) g/dL Albumin (3.5-5.0) g/dL Vitamin B12 2485.0 H (200.0-944.0) pg/mL Urine Protein (Negative) Ur Leukocyte Esterase (Negative) Urine WBC (0-5) /hpf Urine Bacteria (None) /hpf Urine Mucus (None) /hpf Crossmatch Assessment and Plan (1) Leukocytosis Status: Acute Priority: Medium Code(s): D72.829 - ELEVATED WHITE BLOOD CELL COUNT, UNSPECIFIED SNOMED Code(s): 884840220 (2) Pneumonia Status: Acute Priority: High Code(s): J18.9 - PNEUMONIA, UNSPECIFIED ORGANISM SNOMED Code(s): 266707929 Plan: 1patient presented to hospital with weakness he does have some shortness of breath and cough patient did have elevated white count elevated lactic acid chest x-ray with left basilar infiltrate question of pneumonia not entirely excluded 2-try to obtain sputum for Gram stain and culture check a CRP and a procalcitonin level 3-continue empiric Rocephin Zithromax while waiting for the workup to be completed We will follow on clinical condition and cultures to further adjust medication if needed Thank you for this consultation we will follow the patient along with you Dictation was produced using [employer] dictation software. please excuse any grammatical, word or spelling errors. Time with Patient: Greater than 30
[2023-10-05 06:53] LABS: Glucose,Whole Blood 123 mg/dL (70-110)
[2023-10-05 08:26] LABS: Basophils # (A) 0.14 X 10*3/uL (0.00-0.10); Basophils % (A) 0.3 %; Eosinophils # (A) 0.04 X 10*3/uL (0.04-0.35); Eosinophils % (A) 0.1 %; HCT 26.8 % (39.6-50.0); HGB 7.9 g/dL (13.0-17.0); Lymphocytes % (A) 1.4 %; MCH 22.9 pg (27.0-32.0); MCHC 29.5 g/dL (32.0-37.0); MCV 77.7 FL (80.0-97.0); Mean Platelet Volume 10.7 FL (9.5-12.2); Monocytes % (A) 2.3 %; NRBC Per 100 WBC 0 X 10*3/uL (0.00-0.01); Neutrophils # (A) 40.88 X 10*3/uL (1.80-7.70); Neutrophils % (A) 92.4 %; Platelet Count 446 X 10*3/uL (140-440); RBC 3.45 X 10*6/uL (4.40-5.60); RDW 20.3 % (11.5-14.5); WBC 44.22 X 10*3/uL (4.50-10.00)
--- NOTE | 2023-10-05 08:32 | P.CONS ---
History of Present Illness - Reason for Consult Consult date: 10/04/23 hx bladder cancer, leukocytosis Requesting physician: Tawny Stanford - Chief Complaint abnormal labs, anemia, leukocytosis - History of Present Illness Mr. Jimenez is a 63-year-old male pt of Dr. Alberto Hankins, currently receiving treatment for metastatic bladder carcinoma. Pt presented December 2022 with c/o dysuria and progressive hematuria. Presented to [facility] for additional management. CT urogram on 01/18/2023 noted thickening of the left lateral urinary bladder wall measuring 1.7 cm with noted stranding extending into the left pelvic sidewall and loss of fat plane between the prostate and urinary bladder. Prominent left external iliac lymph nodes measuring 1 cm and 2.2 cm were noted with subcentimeter left inguinal lymph nodes. CT chest noted no evidence of distant metastatic disease with discoid atelectasis/parenchymal scarring in the right lower lobe likely secondary to remote granulomatous disease. He underwent TURBT and attempted left-sided ureteral stent insertion 02/06/2023. This visualized mildly enlarged prostate that was nonobstructive with a large papillary tumor involving the left trigone and extending along the left lateral wall. This was resected down to the muscle with an area of resection of 8 cm. Left ureteral orifice could not be identified for stent placement. Pathology of the resected bladder mass noted invasive high-grade papillary urothelial carcinoma invading the muscularis propria smooth muscle with lymphovascular invasion being present. Staging CT CAP 04/10/2023 noted segment 3 liver lesion, left lower lobe pulmonary nodule, and bilateral inguinal lymphadenopathy that was suspicious for metastatic disease. Tissue NGS revealed RB1, KRAS, TP53, and TERT mutations with low TMB and MSI negative. MRI of the abdomen 05/06/2023 did not reveal evidence of liver metastases, did note significant retroperitoneal lymphadenopathy along with 7mm pulmonary nodule concerning for metastatic disease. Clinical course was complicated by scrotal pain with ultrasound noting small hydroceles but no evidence of epididymitis or orchitis along with hypertension, which prevented him from proceeding with biopsy of the retroperitoneal lymph node seen on MRI of the abdomen. Due to concern for significant delay in treatment, systemic treatment was initiated with cycle 1 of pembrolizumab/enfortumab vedotin on 05/23/2023. He was hospitalized for left obstructive uropathy secondary to disease along with acute hypoxic respiratory failure due to influenza A. He was transferred to [facility] and underwent left nephrostomy tube placement on 06/01/2023 and had mechanical intubation from 06/01/2023 through 06/03/2023. After leaving [place], he was readmitted at [facility] on 06/06/2023 for atrial fibrillation with RVR and was started on metoprolol along with prophylactic Eliquis which did originally provide rate control. After restarting cycle 2, he was again hospitalized at [facility] for atrial fibrillation with RVR and was started on amiodarone, which appears to have provided both rhythm and rate control. He completed cycle 4 of treatment on 08/08/2023. PET/CT 08/09/2023 noted FDG avid lesions in the right supraclavicular region, mediastinum, pulmonary nodules, multiple liver nodules, and left pelvic lymphadenopathy concerning for malignancy. Plan was at that time was to proceed with cycles 5 and 6 of Keytruda/Padcev and then obtain a short-term PET/CT. Patient has completed cycle 6, day 1 on 09/26/23, day 2 was held on 10/02, due to low hgb. Repeat PET CT schedled for 10/18/23. He received IV iron on August 29 and September 12. Patient was seen on consult 2 weeks ago and was discharged on 09/24/23 for admission for weakness, poor oral intake and abdominal pain. Patient represented after being seen in clinic prior to treatment and was found to be anemic with hgb 6.8 at which time he was sent to the ER for blood transfusion. At today's visit patient is reporting he has had continued improvement in symptoms since his last discharge. States his oral intake has been improving. Denies abdominal pain, n/v/d, blood in stool, melena, hematuria, urinary complaints, SOB, cough, fever and chills. On admission patient CBC showed hemoglobin 6.3, MCV 79.7, WBC 35.8, platelets 427,000. Differential showing mostly neutrophilia. Patient white counts have increased since his last admission. WBC in clinic on 09/05 was 17,000, white counts during his admission was in the 20 range. WBC on 09/25 was 37,000. His hemoglobin has been trending in the 7-8 range. Lactic acid was elevated at 3.7. Creatinine 0.65, GFR greater than 90. UA suspicious for UTI. Urine culture and blood culture pending chest x-ray showed mild cardiomegaly, COPD and interstitial prominence. Patchy left basilar and posterior basilar opacity. Subtle nodularity in the lungs. Patient has been started on IV antib iotics with azithromycin and Rocephin. Patient afebrile, hemodynamically stable. Review of Systems 10 point ROS is negative except as stated in the HPI 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 left nephrostomy tube (2023) Past Anesthesia/Blood Transfusion Reactions: No Reported Reaction Past Psychological History: No Psychological Hx Reported Smoking Status: Former smoker Past Alcohol Use History: None Reported Past Drug Use History: None Reported - Past Family History Father Family Medical History: Cancer Additional Family Medical History / Comment(s): lung cancer, smoker Medications and Allergies Home Medications Medication Instructions Recorded Confirmed Type Ondansetron [Zofran] 4 mg PO Q4H PRN 05/25/23 10/03/23 History HYDROcodone/APAP 10-325MG [[place] 1 tab PO Q4HR PRN 06/06/23 10/03/23 History 10-325] Apixaban [Eliquis] 2.5 mg PO BID 07/01/23 10/03/23 History Budesonide/Formoterol Fumarate 2 puff INHALATION RT-BID PRN 07/01/23 10/03/23 History [Symbicort 160-4.5 Mcg Inhaler] Ipratropium-Albuterol Nebulize 3 ml INHALATION RT-QID PRN 07/01/23 10/03/23 History [Duoneb 0.5 mg-3 mg/3 ml Soln] Metoprolol Tartrate [Lopressor] 50 mg PO TID 30 Days #90 tab 07/06/23 10/03/23 Rx Amiodarone [Cordarone] 200 mg PO DAILY 07/19/23 10/03/23 History Albuterol Sulfate [Albuterol 2 puff INHALATION RT-Q4H PRN 09/17/23 10/03/23 History Sulfate Hfa] Magnesium Hydroxide [Milk of 2,400 mg PO BID PRN ml 09/24/23 10/03/23 Rx Magnesia] Sucralfate [Carafate] 1 gm PO AC-BID #60 tab 09/24/23 10/03/23 Rx polyethylene glycoL 3350 [Miralax] 17 gm PO DAILY #30 packet 09/24/23 10/03/23 Rx Sennosides-Docusate Sodium 2 tab PO BID 10/03/23 10/03/23 History [Senokot-S] Allergies Allergy/AdvReac Type Severity Reaction Status Date / Time Iodinated Contrast Media Allergy Neck Verified 10/03/23 19:38 swelling/Rash Physical Exam Vitals: Vital Signs Temp Pulse Resp BP Pulse Ox 10/04/23 10:16 98.0 F 66 18 127/79 10/04/23 08:56 71 18 124/78 97 10/04/23 07:54 18 10/04/23 07:52 71 18 113/75 96 10/04/23 07:50 99 10/04/23 07:28 98.7 F 70 18 111/80 10/04/23 07:08 97.5 F L 68 18 115/65 10/04/23 06:55 70 18 113/69 96 10/04/23 06:00 71 18 104/64 98 10/04/23 04:00 74 18 111/71 97 10/04/23 00:00 65 18 134/77 96 10/03/23 22:00 73 18 113/65 95 10/03/23 20:00 79 18 129/67 97 10/03/23 19:29 80 18 117/71 97 10/03/23 19:22 16 10/03/23 18:30 98.7 F 75 16 113/65 98 10/03/23 16:38 98.0 F 78 16 106/73 95 10/03/23 16:34 97.8 F 104 H 18 100/62 100 Intake and Output 10/03/23 10/04/23 10/04/23 22:59 06:59 14:59 Intake Total 0 310 Balance 0 310 Intake: Blood Product 0 310 Rc As-1 Unit 0 310 [id number] Other: Weight 62.596 kg - Constitutional General appearance: no acute distress, thin - EENT Eyes: anicteric sclerae, EOMI ENT: hearing grossly normal - Respiratory slightly diminished - Cardiovascular Rhythm: regular - Gastrointestinal General gastrointestinal: soft, no tenderness - Integumentary Integumentary: no cyanotic, pale - Neurologic Neurologic: CNII-XII intact - Musculoskeletal Musculoskeletal: strength equal bilaterally - Psychiatric Psychiatric: A&O x's 3 Results CBC & Chem 7: 10/04/23 21:35 10/04/23 04:08 Labs: Abnormal Lab Results - Last 24 Hours (Table) 10/03/23 10/03/23 10/03/23 Range/Units 17:13 17:13 17:13 WBC 40.6 H (3.8-10.6) k/uL RBC 3.25 L (4.30-5.90) m/uL Hgb 7.0 L (13.0-17.5) gm/dL Hct 25.8 L (39.0-53.0) % MCV 79.4 L (80.0-100.0) fL MCH 21.5 L (25.0-35.0) pg MCHC 27.1 L (31.0-37.0) g/dL RDW 18.9 H (11.5-15.5) % Plt Count 487 H (150-450) k/uL Neutrophils # 37.4 H (1.3-7.7) k/uL Neutrophils # (Manual) (1.3-7.7) k/uL Lymphocytes # 0.7 L (1.0-4.8) k/uL Lymphocytes # (Manual) (1.0-4.8) k/uL Monocytes # 1.7 H (0-1.0) k/uL Monocytes # (Manual) (0-1.0) k/uL PT 13.5 H (10.0-12.5) sec INR 1.3 H (<1.2) Sodium 133 L (137-145) mmol/L BUN 21 H (9-20) mg/dL Creatinine 0.62 L (0.66-1.25) mg/dL Glucose 102 H (74-99) mg/dL Plasma Lactic Acid Milad (0.7-2.0) mmol/L Calcium (8.4-10.2) mg/dL Iron (65-175) UG/DL TIBC (228-460) UG/DL % Saturation (15.00-50.00) Transferrin (204.0-354.0) mg/dL Alkaline Phosphatase 398 H (38-126) U/L Total Protein 5.4 L (6.3-8.2) g/dL Albumin 2.6 L (3.5-5.0) g/dL Urine Protein (Negative) Ur Leukocyte Esterase (Negative) Urine WBC (0-5) /hpf Urine Bacteria (None) /hpf Urine Mucus (None) /hpf Crossmatch 10/03/23 10/03/23 10/03/23 Range/Units 17:13 19:33 19:48 WBC (3.8-10.6) k/uL RBC (4.30-5.90) m/uL Hgb (13.0-17.5) gm/dL Hct (39.0-53.0) % MCV (80.0-100.0) fL MCH (25.0-35.0) pg MCHC (31.0-37.0) g/dL RDW (11.5-15.5) % Plt Count (150-450) k/uL Neutrophils # (1.3-7.7) k/uL Neutrophils # (Manual) (1.3-7.7) k/uL Lymphocytes # (1.0-4.8) k/uL Lymphocytes # (Manual) (1.0-4.8) k/uL Monocytes # (0-1.0) k/uL Monocytes # (Manual) (0-1.0) k/uL PT (10.0-12.5) sec INR (<1.2) Sodium (137-145) mmol/L BUN (9-20) mg/dL Creatinine (0.66-1.25) mg/dL Glucose (74-99) mg/dL Plasma Lactic Acid Milad 4.4 H* (0.7-2.0) mmol/L Calcium (8.4-10.2) mg/dL Iron (65-175) UG/DL TIBC (228-460) UG/DL % Saturation (15.00-50.00) Transferrin (204.0-354.0) mg/dL Alkaline Phosphatase (38-126) U/L Total Protein (6.3-8.2) g/dL Albumin (3.5-5.0) g/dL Urine Protein 1+ H (Negative) Ur Leukocyte Esterase Moderate H (Negative) Urine WBC 23 H (0-5) /hpf Urine Bacteria Moderate H (None) /hpf Urine Mucus Rare H (None) /hpf Crossmatch See Detail 10/03/23 10/04/23 10/04/23 Range/Units 21:05 00:56 04:08 WBC 35.8 H (3.8-10.6) k/uL RBC 2.75 L (4.30-5.90) m/uL Hgb 6.3 L* (13.0-17.5) gm/dL Hct 22.0 L (39.0-53.0) % MCV 79.7 L (80.0-100.0) fL MCH 22.7 L (25.0-35.0) pg MCHC 28.5 L (31.0-37.0) g/dL RDW 18.8 H (11.5-15.5) % Plt Count (150-450) k/uL Neutrophils # (1.3-7.7) k/uL Neutrophils # (Manual) 34.00 H (1.3-7.7) k/uL Lymphocytes # (1.0-4.8) k/uL Lymphocytes # (Manual) 0.72 L (1.0-4.8) k/uL Monocytes # (0-1.0) k/uL Monocytes # (Manual) 1.07 H (0-1.0) k/uL PT (10.0-12.5) sec INR (<1.2) Sodium (137-145) mmol/L BUN (9-20) mg/dL Creatinine (0.66-1.25) mg/dL Glucose (74-99) mg/dL Plasma Lactic Acid Milad 2.4 H* 3.7 H* (0.7-2.0) mmol/L Calcium (8.4-10.2) mg/dL Iron (65-175) UG/DL TIBC (228-460) UG/DL % Saturation (15.00-50.00) Transferrin (204.0-354.0) mg/dL Alkaline Phosphatase (38-126) U/L Total Protein (6.3-8.2) g/dL Albumin (3.5-5.0) g/dL Urine Protein (Negative) Ur Leukocyte Esterase (Negative) Urine WBC (0-5) /hpf Urine Bacteria (None) /hpf Urine Mucus (None) /hpf Crossmatch 10/04/23 10/04/23 10/04/23 Range/Units 04:08 04:08 07:52 WBC (3.8-10.6) k/uL RBC (4.30-5.90) m/uL Hgb (13.0-17.5) gm/dL Hct (39.0-53.0) % MCV (80.0-100.0) fL MCH (25.0-35.0) pg MCHC (31.0-37.0) g/dL RDW (11.5-15.5) % Plt Count (150-450) k/uL Neutrophils # (1.3-7.7) k/uL Neutrophils # (Manual) (1.3-7.7) k/uL Lymphocytes # (1.0-4.8) k/uL Lymphocytes # (Manual) (1.0-4.8) k/uL Monocytes # (0-1.0) k/uL Monocytes # (Manual) (0-1.0) k/uL PT (10.0-12.5) sec INR (<1.2) Sodium 133 L (137-145) mmol/L BUN 21 H (9-20) mg/dL Creatinine 0.65 L (0.66-1.25) mg/dL Glucose (74-99) mg/dL Plasma Lactic Acid Milad 3.8 H* (0.7-2.0) mmol/L Calcium 8.2 L (8.4-10.2) mg/dL Iron 12 L (65-175) UG/DL TIBC 94 L (228-460) UG/DL % Saturation 12.77 L (15.00-50.00) Transferrin 67.5 L (204.0-354.0) mg/dL Alkaline Phosphatase (38-126) U/L Total Protein (6.3-8.2) g/dL Albumin (3.5-5.0) g/dL Urine Protein (Negative) Ur Leukocyte Esterase (Negative) Urine WBC (0-5) /hpf Urine Bacteria (None) /hpf Urine Mucus (None) /hpf Crossmatch Chest x-ray: report reviewed Assessment and Plan (1) Anemia Current Visit: Yes Status: Acute Priority: High Code(s): D64.9 - ANEMIA, UNSPECIFIED SNOMED Code(s): 422707546 (2) Bladder cancer Current Visit: Yes Status: Acute Priority: High Code(s): C67.9 - MALIGNANT NEOPLASM OF BLADDER, UNSPECIFIED SNOMED Code(s): 821106342 (3) Leukocytosis Current Visit: Yes Status: Acute Priority: Medium Code(s): D72.829 - ELEV ATED WHITE BLOOD CELL COUNT, UNSPECIFIED SNOMED Code(s): 099914638 (4) Pneumonia Current Visit: Yes Status: Acute Priority: High Code(s): J18.9 - PNE UMONIA, UNSPECIFIED ORGANISM SNOMED Code(s): 616412167 (5) Urinary tract infection Current Visit: Yes Status: Acute Priority: High Code(s): N39.0 - URINARY TRACT INFECTION, SITE NOT SPECIFIED SNOMED Code(s): 04161289 Plan: Pneumonia, UTI, leukocytosis: -On admission patient CBC showed WBC 35.8, differential showing mostly neutrophilia. Patient white counts have increased since his last admission. WBC in clinic on 09/05 was 17,000, white counts during his last admission was in the 20 range. WBC on 09/25 was 37,000. Lactic acid elevated at 3.7 -UA suspicious for UTI. Urine culture and blood cultures pending -Chest x-ray showed mild cardiomegaly, COPD and interstitial prominence. Patchy left basilar and posterior basilar opacity -Azithromycin and Rocephin have been started. Patient is afebrile, hemodynamically stable -Leukocytosis multifactorial r/t anemia and malignancy, superimposed by acute infection -Continue to monitor, agree with antibiotics Iron deficient anemia -Patient is status post 1 unit of PRBCs for hemoglobin of 6.3 on admit -Patient has been receiving parenteral iron monthly in the office. His last doses of venofer were on 08/29, 09/05 and 09/12 -No reported episodes of acute bleeding. Hgb has been trending in 7-8 range -Monitor CBC, transfuse for Hgb <7 or if symptomatic Metastatic bladder carcinoma: -Full history in consult HPI -Completed cycle 6, day 1 on 09/26/23, day 2 was held on 10/02, due to low hgb. -Repeat PET CT scheduled for 10/18/23. -Treatment will be held until patient acutely recovers
[2023-10-05 08:41] LABS: ALT 16 U/L (10-49); AST 20 U/L (14-35); Albumin 2.5 g/dL (3.8-4.9); Alkaline Phosphatase 355 U/L (41-126); Blood Urea Nitrogen 21.9 mg/dL (9.0-27.0); Calcium 8.3 mg/dL (8.7-10.3); Carbon Dioxide 17.3 mmol/L (21.6-31.8); Chloride 98 mmol/L (96-109); Globulin 2.5 g/dL (1.6-3.3); Glucose 117 mg/dL (70-110); Potassium 4.7 mmol/L (3.5-5.5); Sodium 134 mmol/L (135-145); Total Bilirubin 0.5 mg/dL (0.3-1.2)
[2023-10-05 12:08] LABS: Glucose,Whole Blood 145 mg/dL (70-110)
[2023-10-05] MEDS: FOLIC ACID 1 MG TAB PO SCH (12:46)
[2023-10-05] MEDS: MULTIVITAMINS, THERA 1 EACH TAB PO SCH (12:46)
[2023-10-05] MEDS: THIAMINE 100 MG TAB PO SCH (12:46)
--- NOTE | 2023-10-05 14:06 | P.PN ---
Subjective Progress Note Date: 10/05/23 63-year-old male with a history of metastatic bladder cancer, who presents to the emergency department, on October 02, complaining of shortness of breath, and lower extremity edema. The patient apparently went to his oncologist office, to receive immunotherapy, but apparently was having significant weakness, shortness of breath, and lower extremity edema. He was also found to be anemic and for that reason was scented to the emergency department to be evaluated. The patient was recently hospitalized for similar episode. Currently, he is seen in the emergency department, room 21. The patient is currently on 2 L of oxygen. Saturations are 98%. It appears that he received a blood transfusion. Labs include a white count of 35.8, hemoglobin 6.3, hematocrit 22, and plate, hematocrit 22, and platelet count 427,000 427,000. Sodium 133, potassium 4.4, chlorides 103, CO2 22, BUN 21, and creatinine 0.65. Chest x-ray is consistent with perihilar infiltrates. The patient is seen today October 05, 2023 in follow-up on the regular medical floor. He is currently resting comfortably in bed. Awake and alert in no acute distress. Maintaining O2 saturations in the 90s on 2 L/min per nasal cannula. No IV fluids. He is status post 1 unit of packed red blood cells this admission. Hemoglobin 7.9. White count 44.2. Platelets 446. Sodium 134. Potassium 4.7. Bicarb 17. BUN 22. Creatinine 0.6. Glucose 117. He remains on DuoNeb inhalations, Symbicort, Solu-Medrol. Antibiotics in the form of ceftriaxone and azithromycin. Objective - Vital Signs Vital signs: Vital Signs Temp 97.6 F 10/05/23 12:08 Pulse 64 10/05/23 12:08 Resp 17 10/05/23 12:08 BP 122/74 10/05/23 12:08 Pulse Ox 98 10/05/23 12:08 FiO2 Intake & Output 10/04/23 10/05/23 10/05/23 18:59 06:59 18:59 Intake Total 310 590 Balance 310 590 Weight 62.596 kg 62.596 kg Intake: Oral 590 Blood Product 310 Rc As-1 Unit 310 [id number] Other: # Voids 1 # Bowel Movements 1 - Exam GENERAL EXAM: Alert, thin, pale 63-year-old male, on 2 L nasal cannula, comfortable in no apparent distress. HEAD: Normocephalic. EYES: Normal reaction of pupils, equal size. NOSE: Clear with pink turbinates. THROAT: No erythema or exudates. NECK: No masses, no JVD. CHEST: No chest wall deformity. LUNGS: Equal air entry with no crackles, wheeze, rhonchi or dullness. CVS: S1 and S2 normal with no audible murmur, regular rhythm. ABDOMEN: No hepatosplenomegaly, normal bowel sounds, no guarding or rigidity. SPINE: No scoliosis or deformity SKIN: No rashes CENTRAL NERVOUS SYSTEM: No focal deficits, tone is normal in all 4 extremities. EXTREMITIES: There is no peripheral edema. No clubbing, no cyanosis. Peripheral pulses are intact. - Labs CBC & Chem 7: 10/05/23 04:15 10/05/23 04:15 Labs: Abnormal Lab Results - Last 24 Hours (Table) 10/04/23 10/04/23 10/04/23 Range/Units 14:11 14:11 14:56 WBC 39.0 H (3.8-10.6) k/uL RBC 3.51 L (4.30-5.90) m/uL Hgb 8.2 L D (13.0-17.5) gm/dL Hct 28.7 L (39.0-53.0) % MCV (80.0-97.0) FL MCH 23.5 L (25.0-35.0) pg MCHC 28.7 L (31.0-37.0) g/dL RDW 18.3 H (11.5-15.5) % Plt Count (140-440) X 10*3/uL Immature Gran # (0.00-0.04) X 10*3/uL Neutrophils # 35.8 H (1.3-7.7) k/uL Neutrophils # (Manual) (1.3-7.7) k/uL Lymphocytes # 0.5 L (1.0-4.8) k/uL Lymphocytes # (Manual) (1.0-4.8) k/uL Monocytes # 1.9 H (0-1.0) k/uL Basophils # (0.00-0.10) X 10*3/uL Sodium (135-145) mmol/L Carbon Dioxide (21.6-31.8) mmol/L Anion Gap (4.00-12.00) mmol/L BUN/Creatinine Ratio (12.00-20.00) Ratio Glucose (70-110) mg/dL POC Glucose (mg/dL) (70-110) mg/dL Calcium (8.7-10.3) mg/dL Alkaline Phosphatase (41-126) U/L Total Protein (6.2-8.2) g/dL Albumin (3.8-4.9) g/dL Albumin/Globulin Ratio (1.60-3.17) Ratio RBC Folate 918 H (280 - 791) ng/mL Procalcitonin 3.27 H (0.02-0.09) ng/mL 10/04/23 10/04/23 10/04/23 Range/Units 18:31 21:19 21:35 WBC 40.5 H (3.8-10.6) k/uL RBC 3.59 L (4.30-5.90) m/uL Hgb 8.2 L (13.0-17.5) gm/dL Hct 30.0 L (39.0-53.0) % MCV (80.0-97.0) FL MCH 22.8 L (25.0-35.0) pg MCHC 27.2 L (31.0-37.0) g/dL RDW 18.4 H (11.5-15.5) % Plt Count (140-440) X 10*3/uL Immature Gran # (0.00-0.04) X 10*3/uL Neutrophils # (1.3-7.7) k/uL Neutrophils # (Manual) 39.60 H (1.3-7.7) k/uL Lymphocytes # (1.0-4.8) k/uL Lymphocytes # (Manual) 0.41 L (1.0-4.8) k/uL Monocytes # (0-1.0) k/uL Basophils # (0.00-0.10) X 10*3/uL Sodium (135-145) mmol/L Carbon Dioxide (21.6-31.8) mmol/L Anion Gap (4.00-12.00) mmol/L BUN/Creatinine Ratio (12.00-20.00) Ratio Glucose (70-110) mg/dL POC Glucose (mg/dL) 156 H 178 H (70-110) mg/dL Calcium (8.7-10.3) mg/dL Alkaline Phosphatase (41-126) U/L Total Protein (6.2-8.2) g/dL Albumin (3.8-4.9) g/dL Albumin/Globulin Ratio (1.60-3.17) Ratio RBC Folate (280 - 791) ng/mL Procalcitonin (0.02-0.09) ng/mL 10/05/23 10/05/23 10/05/23 Range/Units 04:15 04:15 06:52 WBC 44.22 H (3.8-10.6) k/uL RBC 3.45 L (4.30-5.90) m/uL Hgb 7.9 L (13.0-17.5) gm/dL Hct 26.8 L (39.0-53.0) % MCV 77.7 L (80.0-97.0) FL MCH 22.9 L (25.0-35.0) pg MCHC 29.5 L (31.0-37.0) g/dL RDW 20.3 H (11.5-15.5) % Plt Count 446 H (140-440) X 10*3/uL Immature Gran # 1.56 H (0.00-0.04) X 10*3/uL Neutrophils # 40.88 H (1.3-7.7) k/uL Neutrophils # (Manual) (1.3-7.7) k/uL Lymphocytes # 0.60 L (1.0-4.8) k/uL Lymphocytes # (Manual) (1.0-4.8) k/uL Monocytes # (0-1.0) k/uL Basophils # 0.14 H (0.00-0.10) X 10*3/uL Sodium 134 L (135-145) mmol/L Carbon Dioxide 17.3 L (21.6-31.8) mmol/L Anion Gap 18.70 H (4.00-12.00) mmol/L BUN/Creatinine Ratio 36.50 H (12.00-20.00) Ratio Glucose 117 H (70-110) mg/dL POC Glucose (mg/dL) 123 H (70-110) mg/dL Calcium 8.3 L (8.7-10.3) mg/dL Alkaline Phosphatase 355 H (41-126) U/L Total Protein 5.0 L (6.2-8.2) g/dL Albumin 2.5 L (3.8-4.9) g/dL Albumin/Globulin Ratio 1.00 L (1.60-3.17) Ratio RBC Folate (280 - 791) ng/mL Procalcitonin (0.02-0.09) ng/mL 10/05/23 Range/Units 12:07 WBC (3.8-10.6) k/uL RBC (4.30-5.90) m/uL Hgb (13.0-17.5) gm/dL Hct (39.0-53.0) % MCV (80.0-97.0) FL MCH (25.0-35.0) pg MCHC (31.0-37.0) g/dL RDW (11.5-15.5) % Plt Count (140-440) X 10*3/uL Immature Gran # (0.00-0.04) X 10*3/uL Neutrophils # (1.3-7.7) k/uL Neutrophils # (Manual) (1.3-7.7) k/uL Lymphocytes # (1.0-4.8) k/uL Lymphocytes # (Manual) (1.0-4.8) k/uL Monocytes # (0-1.0) k/uL Basophils # (0.00-0.10) X 10*3/uL Sodium (135-145) mmol/L Carbon Dioxide (21.6-31.8) mmol/L Anion Gap (4.00-12.00) mmol/L BUN/Creatinine Ratio (12.00-20.00) Ratio Glucose (70-110) mg/dL POC Glucose (mg/dL) 145 H (70-110) mg/dL Calcium (8.7-10.3) mg/dL Alkaline Phosphatase (41-126) U/L Total Protein (6.2-8.2) g/dL Albumin (3.8-4.9) g/dL Albumin/Globulin Ratio (1.60-3.17) Ratio RBC Folate (280 - 791) ng/mL Procalcitonin (0.02-0.09) ng/mL Microbiology - Last 24 Hours (Table) 10/03/23 19:33 Urine Culture - Final Urine,Voided Assessment and Plan Assessment: Weakness secondary to anemia, received 1 unit of packed red blood cells. Current hemoglobin 10.9 History of metastatic bladder cancer receiving immunotherapy Leukocytosis History of atrial fibrillation, anticoagulated with Eliquis History of COPD Prior history of tobacco use Plan: The patient was seen and evaluated Labs and medications reviewed Currently stable and on 2 L nasal cannula Status post 1 unit of packed red blood cells this admission Remains on ceftriaxone and azithromycin ID service is following We will continue to follow I have personally seen and examined the patient, performed the documentation and the assessment and plan as written. Number of minutes spent on the visit: 10.
--- NOTE | 2023-10-05 14:49 | PN ---
PROGRESS NOTE DATE OF SERVICE: 10/05/2023 SUBJECTIVE: This 63-year-old gentleman was admitted with bladder cancer with mets as well as possible pneumonia, is being closely monitored. The patient has also had weakness, is slightly improving. OBJECTIVE: VITAL SIGNS: Pulse 78, blood pressure 103/62, respirations 16. CHEST: Few scattered rhonchi and crackles. ABDOMEN: Soft. NERVOUS SYSTEM: Diffusely weak, emaciated. LABORATORY DATA: Hemoglobin 7.9, white count is 44.2, white count mostly neutrophils. ASSESSMENT: 1. COPD acute exacerbation, acute bilateral pneumonia, consider gram-negative. 2. Severe anemia, microcytic possibly secondary to malignancy. 3. Elevated WBC and leukemoid reaction. 4. Hyponatremia. 5. Severe malnutrition. 6. Metastatic bladder cancer with lungs and osseous metastasis. 7. Atrial fibrillation history. 8. Chronic obstructive pulmonary disease. 9. Left nephrostomy tube. 10.Multiple complex medical issues. RECOMMENDATIONS: Recommended to continue current management, continue symptomatic treatment. Continue empiric antibiotics. Cultures are pending at this time. Otherwise, closely follow with Dr. Aguilar and multiple consultants. Guarded prognosis. Further recommendations to follow. See orders for further details. MMODL / IJN: [id number] /
--- NOTE | 2023-10-05 16:09 | P.PN ---
Subjective Progress Note Date: 10/05/23 No acute events. Patient resting comfortably in bed. Patient reports testicular discomfort which is chronic for patient with no acute changes. Patient remains afebrile, continues on IV antibiotics. WBC 44.2, hemoglobin 7.9, platelets 446,000. Objective - Vital Signs Vital signs: Vital Signs Temp 97.6 F 10/05/23 12:08 Pulse 64 10/05/23 12:08 Resp 17 10/05/23 12:08 BP 122/74 10/05/23 12:08 Pulse Ox 98 10/05/23 12:08 FiO2 Intake & Output 10/04/23 10/05/23 10/05/23 18:59 06:59 18:59 Intake Total 310 590 Balance 310 590 Weight 62.596 kg 62.596 kg Intake: Oral 590 Blood Product 310 Rc As-1 Unit 310 [id number] Other: # Voids 1 # Bowel Movements 1 - Constitutional General appearance: Present: no acute distress, thin - EENT Eyes: Present: EOMI ENT: Present: hearing grossly normal - Respiratory Details: breathing is even and unlabored - Cardiovascular Details: well perfused - Gastrointestinal General gastrointestinal: Present: soft. Absent: tenderness - Integumentary Integumentary: Absent: cyanotic - Musculoskeletal Musculoskeletal: Present: strength equal bilaterally - Psychiatric Psychiatric: Present: A&O x's 3 - Labs CBC & Chem 7: 10/05/23 04:15 10/05/23 04:15 Labs: Abnormal Lab Results - Last 24 Hours (Table) 10/04/23 10/04/23 10/04/23 Range/Units 14:11 14:11 14:56 WBC 39.0 H (3.8-10.6) k/uL RBC 3.51 L (4.30-5.90) m/uL Hgb 8.2 L D (13.0-17.5) gm/dL Hct 28.7 L (39.0-53.0) % MCV (80.0-97.0) FL MCH 23.5 L (25.0-35.0) pg MCHC 28.7 L (31.0-37.0) g/dL RDW 18.3 H (11.5-15.5) % Plt Count (140-440) X 10*3/uL Immature Gran # (0.00-0.04) X 10*3/uL Neutrophils # 35.8 H (1.3-7.7) k/uL Neutrophils # (Manual) (1.3-7.7) k/uL Lymphocytes # 0.5 L (1.0-4.8) k/uL Lymphocytes # (Manual) (1.0-4.8) k/uL Monocytes # 1.9 H (0-1.0) k/uL Basophils # (0.00-0.10) X 10*3/uL Sodium (135-145) mmol/L Carbon Dioxide (21.6-31.8) mmol/L Anion Gap (4.00-12.00) mmol/L BUN/Creatinine Ratio (12.00-20.00) Ratio Glucose (70-110) mg/dL POC Glucose (mg/dL) (70-110) mg/dL Calcium (8.7-10.3) mg/dL Alkaline Phosphatase (41-126) U/L Total Protein (6.2-8.2) g/dL Albumin (3.8-4.9) g/dL Albumin/Globulin Ratio (1.60-3.17) Ratio RBC Folate 918 H (280 - 791) ng/mL Procalcitonin 3.27 H (0.02-0.09) ng/mL 10/04/23 10/04/23 10/04/23 Range/Units 18:31 21:19 21:35 WBC 40.5 H (3.8-10.6) k/uL RBC 3.59 L (4.30-5.90) m/uL Hgb 8.2 L (13.0-17.5) gm/dL Hct 30.0 L (39.0-53.0) % MCV (80.0-97.0) FL MCH 22.8 L (25.0-35.0) pg MCHC 27.2 L (31.0-37.0) g/dL RDW 18.4 H (11.5-15.5) % Plt Count (140-440) X 10*3/uL Immature Gran # (0.00-0.04) X 10*3/uL Neutrophils # (1.3-7.7) k/uL Neutrophils # (Manual) 39.60 H (1.3-7.7) k/uL Lymphocytes # (1.0-4.8) k/uL Lymphocytes # (Manual) 0.41 L (1.0-4.8) k/uL Monocytes # (0-1.0) k/uL Basophils # (0.00-0.10) X 10*3/uL Sodium (135-145) mmol/L Carbon Dioxide (21.6-31.8) mmol/L Anion Gap (4.00-12.00) mmol/L BUN/Creatinine Ratio (12.00-20.00) Ratio Glucose (70-110) mg/dL POC Glucose (mg/dL) 156 H 178 H (70-110) mg/dL Calcium (8.7-10.3) mg/dL Alkaline Phosphatase (41-126) U/L Total Protein (6.2-8.2) g/dL Albumin (3.8-4.9) g/dL Albumin/Globulin Ratio (1.60-3.17) Ratio RBC Folate (280 - 791) ng/mL Procalcitonin (0.02-0.09) ng/mL 10/05/23 10/05/23 10/05/23 Range/Units 04:15 04:15 06:52 WBC 44.22 H (3.8-10.6) k/uL RBC 3.45 L (4.30-5.90) m/uL Hgb 7.9 L (13.0-17.5) gm/dL Hct 26.8 L (39.0-53.0) % MCV 77.7 L (80.0-97.0) FL MCH 22.9 L (25.0-35.0) pg MCHC 29.5 L (31.0-37.0) g/dL RDW 20.3 H (11.5-15.5) % Plt Count 446 H (140-440) X 10*3/uL Immature Gran # 1.56 H (0.00-0.04) X 10*3/uL Neutrophils # 40.88 H (1.3-7.7) k/uL Neutrophils # (Manual) (1.3-7.7) k/uL Lymphocytes # 0.60 L (1.0-4.8) k/uL Lymphocytes # (Manual) (1.0-4.8) k/uL Monocytes # (0-1.0) k/uL Basophils # 0.14 H (0.00-0.10) X 10*3/uL Sodium 134 L (135-145) mmol/L Carbon Dioxide 17.3 L (21.6-31.8) mmol/L Anion Gap 18.70 H (4.00-12.00) mmol/L BUN/Creatinine Ratio 36.50 H (12.00-20.00) Ratio Glucose 117 H (70-110) mg/dL POC Glucose (mg/dL) 123 H (70-110) mg/dL Calcium 8.3 L (8.7-10.3) mg/dL Alkaline Phosphatase 355 H (41-126) U/L Total Protein 5.0 L (6.2-8.2) g/dL Albumin 2.5 L (3.8-4.9) g/dL Albumin/Globulin Ratio 1.00 L (1.60-3.17) Ratio RBC Folate (280 - 791) ng/mL Procalcitonin (0.02-0.09) ng/mL 10/05/23 Range/Units 12:07 WBC (3.8-10.6) k/uL RBC (4.30-5.90) m/uL Hgb (13.0-17.5) gm/dL Hct (39.0-53.0) % MCV (80.0-97.0) FL MCH (25.0-35.0) pg MCHC (31.0-37.0) g/dL RDW (11.5-15.5) % Plt Count (140-440) X 10*3/uL Immature Gran # (0.00-0.04) X 10*3/uL Neutrophils # (1.3-7.7) k/uL Neutrophils # (Manual) (1.3-7.7) k/uL Lymphocytes # (1.0-4.8) k/uL Lymphocytes # (Manual) (1.0-4.8) k/uL Monocytes # (0-1.0) k/uL Basophils # (0.00-0.10) X 10*3/uL Sodium (135-145) mmol/L Carbon Dioxide (21.6-31.8) mmol/L Anion Gap (4.00-12.00) mmol/L BUN/Creatinine Ratio (12.00-20.00) Ratio Glucose (70-110) mg/dL POC Glucose (mg/dL) 145 H (70-110) mg/dL Calcium (8.7-10.3) mg/dL Alkaline Phosphatase (41-126) U/L Total Protein (6.2-8.2) g/dL Albumin (3.8-4.9) g/dL Albumin/Globulin Ratio (1.60-3.17) Ratio RBC Folate (280 - 791) ng/mL Procalcitonin (0.02-0.09) ng/mL Microbiology - Last 24 Hours (Table) 10/03/23 19:33 Urine Culture - Final Urine,Voided Assessment and Plan (1) Anemia Current Visit: Yes Status: Acute Priority: High Code(s): D64.9 - ANEMIA, UNSPECIFIED SNOMED Code(s): 093619259 (2) Bladder cancer Current Visit: Yes Status: Acute Priority: High Code(s): C67.9 - MALIGNANT NEOPLASM OF BLADDER, UNSPECIFIED SNOMED Code(s): 465293091 (3) Leukocytosis Current Visit: Yes Status: Acute Priority: Medium Code(s): D72.829 - ELEVATED WHITE BLOOD CELL COUNT, UNSPECIFIED SNOMED Code(s): 934829197 (4) Pneumonia Current Visit: Yes Status: Acute Priority: High Code(s): J18.9 - PNEUMONIA, UNSPECIFIED ORGANISM SNOMED Code(s): 800467704 (5) Urinary tract infection Current Visit: Yes Status: Acute Priority: High Code(s): N39.0 - URINARY TRACT INFECTION, SITE NOT SPECIFIED SNOMED Code(s): 08364692 Plan: Pneumonia, UTI, leukocytosis: -On admission patient CBC showed WBC 35.8, differential showing mostly neutroph tiffanie. Patient white counts have increased since his last admission. WBC in clinic on 09/05 was 17,000, white counts during his last admission was in the 20 range. WBC on 09/25 was 37,000. Lactic acid elevated at 3.7 -UA suspicious for UTI. Urine culture negative, blood cultures pending -Chest x-ray showed mild cardiomegaly, COPD and interstitial prominence. Patchy left basilar and posterior basilar opacity -Azithromycin and Rocephin have been started. Patient is afebrile, hemodynamically stable -Leukocytosis multifactorial r/t anemia and malignancy, superimposed by acute infection -Continue to monitor, agree with antibiotics Iron deficient anemia -Patient is status post 1 unit of PRBCs for hemoglobin of 6.3 on admit -Patient has been receiving parenteral iron monthly in the office. His last doses of venofer were on 08/29, 09/05 and 09/12 -No reported episodes of acute bleeding. Hgb has been trending in 7-8 range -Hgb stable, 7.9 today -Monitor CBC, transfuse for Hgb <7 or if symptomatic Metastatic bladder carcinoma: -Full history in consult HPI -Completed cycle 6, day 1 on 09/26/23, day 2 was held on 10/02, due to low hgb. -Repeat PET CT scheduled for 10/18/23. -Treatment will be held until patient acutely recovers Patient updated on POC, and all his questions were answered
--- NOTE | 2023-10-05 16:38 | P.PN ---
Subjective Progress Note Date: 10/05/23 Principal diagnosis: Reason for follow-up is leukocytosis/pneumonia Patient is a 63-year-old male with a past medical history significant for metastatic bladder cancer on chemo COPD atrial fibrillation on immunotherapy sent to the hospital concerning for abnormal lab and patient complaining of weakness. On today's evaluation that is 10/05/2023,the patient remains to be afebrile, patient is on 2 L nasal cannula supplemental oxygen and denies any shortness of breath no chest pain still complaining of cough not bring up any sputum.Patient denies having any nausea or vomiting, no abdominal pain and no diarrhea has been reported. Patient white count is 44.22 creatinine 0.6 procalcitonin 3.27 Objective - Vital Signs Vital signs: Vital Signs Temp 97.6 F 10/05/23 12:08 Pulse 64 10/05/23 12:08 Resp 17 10/05/23 12:08 BP 122/74 10/05/23 12:08 Pulse Ox 98 10/05/23 12:08 FiO2 Intake & Output 10/04/23 10/05/23 10/05/23 18:59 06:59 18:59 Intake Total 310 590 Balance 310 590 Weight 62.596 kg 62.596 kg Intake: Oral 590 Blood Product 310 Rc As-1 Unit 310 [id number] Other: # Voids 1 # Bowel Movements 1 - Exam GENERAL DESCRIPTION: Middle-age male lying in bed in no distress RESPIRATORY SYSTEM: Unlabored breathing , decreased breath sounds at bases HEART: S1 S2 regular rate and rhythm , ABDOMEN: Soft , no tenderness EXTREMITIES: No edema feet - Labs CBC & Chem 7: 10/05/23 04:15 10/05/23 04:15 Labs: Abnormal Lab Results - Last 24 Hours (Table) 10/04/23 10/04/23 10/04/23 Range/Units 14:11 14:56 18:31 WBC 39.0 H (3.8-10.6) k/uL RBC 3.51 L (4.30-5.90) m/uL Hgb 8.2 L D (13.0-17.5) gm/dL Hct 28.7 L (39.0-53.0) % MCV (80.0-97.0) FL MCH 23.5 L (25.0-35.0) pg MCHC 28.7 L (31.0-37.0) g/dL RDW 18.3 H (11.5-15.5) % Plt Count (140-440) X 10*3/uL Immature Gran # (0.00-0.04) X 10*3/uL Neutrophils # 35.8 H (1.3-7.7) k/uL Neutrophils # (Manual) (1.3-7.7) k/uL Lymphocytes # 0.5 L (1.0-4.8) k/uL Lymphocytes # (Manual) (1.0-4.8) k/uL Monocytes # 1.9 H (0-1.0) k/uL Basophils # (0.00-0.10) X 10*3/uL Sodium (135-145) mmol/L Carbon Dioxide (21.6-31.8) mmol/L Anion Gap (4.00-12.00) mmol/L BUN/Creatinine Ratio (12.00-20.00) Ratio Glucose (70-110) mg/dL POC Glucose (mg/dL) 156 H (70-110) mg/dL Calcium (8.7-10.3) mg/dL Alkaline Phosphatase (41-126) U/L Total Protein (6.2-8.2) g/dL Albumin (3.8-4.9) g/dL Albumin/Globulin Ratio (1.60-3.17) Ratio Procalcitonin 3.27 H (0.02-0.09) ng/mL 10/04/23 10/04/23 10/05/23 Range/Units 21:19 21:35 04:15 WBC 40.5 H 44.22 H (3.8-10.6) k/uL RBC 3.59 L 3.45 L (4.30-5.90) m/uL Hgb 8.2 L 7.9 L (13.0-17.5) gm/dL Hct 30.0 L 26.8 L (39.0-53.0) % MCV 77.7 L (80.0-97.0) FL MCH 22.8 L 22.9 L (25.0-35.0) pg MCHC 27.2 L 29.5 L (31.0-37.0) g/dL RDW 18.4 H 20.3 H (11.5-15.5) % Plt Count 446 H (140-440) X 10*3/uL Immature Gran # 1.56 H (0.00-0.04) X 10*3/uL Neutrophils # 40.88 H (1.3-7.7) k/uL Neutrophils # (Manual) 39.60 H (1.3-7.7) k/uL Lymphocytes # 0.60 L (1.0-4.8) k/uL Lymphocytes # (Manual) 0.41 L (1.0-4.8) k/uL Monocytes # (0-1.0) k/uL Basophils # 0.14 H (0.00-0.10) X 10*3/uL Sodium (135-145) mmol/L Carbon Dioxide (21.6-31.8) mmol/L Anion Gap (4.00-12.00) mmol/L BUN/Creatinine Ratio (12.00-20.00) Ratio Glucose (70-110) mg/dL POC Glucose (mg/dL) 178 H (70-110) mg/dL Calcium (8.7-10.3) mg/dL Alkaline Phosphatase (41-126) U/L Total Protein (6.2-8.2) g/dL Albumin (3.8-4.9) g/dL Albumin/Globulin Ratio (1.60-3.17) Ratio Procalcitonin (0.02-0.09) ng/mL 10/05/23 10/05/23 10/05/23 Range/Units 04:15 06:52 12:07 WBC (3.8-10.6) k/uL RBC (4.30-5.90) m/uL Hgb (13.0-17.5) gm/dL Hct (39.0-53.0) % MCV (80.0-97.0) FL MCH (25.0-35.0) pg MCHC (31.0-37.0) g/dL RDW (11.5-15.5) % Plt Count (140-440) X 10*3/uL Immature Gran # (0.00-0.04) X 10*3/uL Neutrophils # (1.3-7.7) k/uL Neutrophils # (Manual) (1.3-7.7) k/uL Lymphocytes # (1.0-4.8) k/uL Lymphocytes # (Manual) (1.0-4.8) k/uL Monocytes # (0-1.0) k/uL Basophils # (0.00-0.10) X 10*3/uL Sodium 134 L (135-145) mmol/L Carbon Dioxide 17.3 L (21.6-31.8) mmol/L Anion Gap 18.70 H (4.00-12.00) mmol/L BUN/Creatinine Ratio 36.50 H (12.00-20.00) Ratio Glucose 117 H (70-110) mg/dL POC Glucose (mg/dL) 123 H 145 H (70-110) mg/dL Calcium 8.3 L (8.7-10.3) mg/dL Alkaline Phosphatase 355 H (41-126) U/L Total Protein 5.0 L (6.2-8.2) g/dL Albumin 2.5 L (3.8-4.9) g/dL Albumin/Globulin Ratio 1.00 L (1.60-3.17) Ratio Procalcitonin (0.02-0.09) ng/mL Microbiology - Last 24 Hours (Table) 10/03/23 19:33 Urine Culture - Final Urine,Voided Assessment and Plan (1) Leukocytosis Current Visit: Yes Status: Acute Priority: Medium Code(s): D72.829 - ELEVATED WHITE BLOOD CELL COUNT, UNSPECIFIED SNOMED Code(s): 823042441 (2) Pneumonia Current Visit: Yes Status: Acute Priority: High Code(s): J18.9 - PNEUMONIA, UNSPECIFIED ORGANISM SNOMED Code(s): 631280329 Plan: 1patient presented to hospital with weakness he does have some shortness of breath and cough patient did have elevated white count elevated lactic acid chest x-ray with left basilar infiltrate question of pneumonia not entirely excluded 2-try to obtain sputum for Gram stain and culture patient did have procalcitonin level 3.27 3-patient to continue with Rocephin Zithromax while waiting for the workup to be completed Dictation was produced using Original dictation software. please excuse any grammatical, word or spelling errors. Time with Patient: Less than 30
[2023-10-05 16:58] LABS: Glucose,Whole Blood 109 mg/dL (70-110)
[2023-10-05 20:07] LABS: Glucose,Whole Blood 129 mg/dL (70-110)
[2023-10-05] MEDS: ONDANSETRON 4 MG TAB PO PRN (22:02)
[2023-10-06 07:04] LABS: Glucose,Whole Blood 99 mg/dL (70-110)
[2023-10-06] MEDS: SYMBICORT 160-4.5 MCG INHALER INHALATION PRN (07:42)
--- NOTE | 2023-10-06 08:25 | P.PN ---
Subjective Progress Note Date: 10/06/23 63-year-old male with a history of metastatic bladder cancer, who presents to the emergency department, on October 02, complaining of shortness of breath, and lower extremity edema. The patient apparently went to his oncologist office, to receive immunotherapy, but apparently was having significant weakness, shortness of breath, and lower extremity edema. He was also found to be anemic and for that reason was scented to the emergency department to be evaluated. The patient was recently hospitalized for similar episode. Currently, he is seen in the emergency department, room 21. The patient is currently on 2 L of oxygen. Saturations are 98%. It appears that he received a blood transfusion. Labs include a white count of 35.8, hemoglobin 6.3, hematocrit 22, and plate, hematocrit 22, and platelet count 427,000 427,000. Sodium 133, potassium 4.4, chlorides 103, CO2 22, BUN 21, and creatinine 0.65. Chest x-ray is consistent with perihilar infiltrates. The patient is seen today October 05, 2023 in follow-up on the regular medical floor. He is currently resting comfortably in bed. Awake and alert in no acute distress. Maintaining O2 saturations in the 90s on 2 L/min per nasal cannula. No IV fluids. He is status post 1 unit of packed red blood cells this admission. Hemoglobin 7.9. White count 44.2. Platelets 446. Sodium 134. Potassium 4.7. Bicarb 17. BUN 22. Creatinine 0.6. Glucose 117. He remains on DuoNeb inhalations, Symbicort, Solu-Medrol. Antibiotics in the form of ceftriaxone and azithromycin. The patient is seen today October 06, 2023 in follow-up on the regular medical floor. He is awake and alert in no acute distress. Sitting up in bed. Having a breathing treatment. Doing better today compared to yesterday. He is maintaining O2 saturations in the 90s on 2 L/min per nasal cannula. He remains on Rocephin, completed azithromycin. His procalcitonin was 3.27. He remains on DuoNeb ventilations, Symbicort. Anticoagulated with Eliquis. Glucose 99. Labs are pending. Objective - Vital Signs Vital signs: Vital Signs Temp 98.6 F 10/06/23 07:01 Pulse 76 10/06/23 07:54 Resp 16 10/06/23 07:01 BP 112/67 10/06/23 07:01 Pulse Ox 98 10/06/23 07:41 FiO2 Intake & Output 10/05/23 10/06/23 10/06/23 18:59 06:59 18:59 Intake Total 590 Output Total 300 Balance 290 Intake: Oral 590 Output: Urine 300 Other: # Voids 1 # Bowel Movements 1 - Exam GENERAL EXAM: Alert, thin, cachectic 63-year-old male, sitting up in bed, on 2 L nasal cannula, comfortable in no apparent distress. HEAD: Normocephalic. EYES: Normal reaction of pupils, equal size. NOSE: Clear with pink turbinates. THROAT: No erythema or exudates. NECK: No masses, no JVD. CHEST: No chest wall deformity. LUNGS: Equal air entry with no crackles, wheeze, rhonchi or dullness. CVS: S1 and S2 normal with no audible murmur, regular rhythm. ABDOMEN: No hepatosplenomegaly, normal bowel sounds, no guarding or rigidity. SPINE: No scoliosis or deformity SKIN: No rashes CENTRAL NERVOUS SYSTEM: No focal deficits, tone is normal in all 4 extremities. EXTREMITIES: There is no peripheral edema. No clubbing, no cyanosis. Peripheral pulses are intact. - Labs CBC & Chem 7: 10/05/23 04:15 10/05/23 04:15 Labs: Abnormal Lab Results - Last 24 Hours (Table) 10/04/23 10/04/23 10/05/23 Range/Units 14:11 14:56 04:15 WBC 44.22 H (4.50-10.00) X 10*3/uL RBC 3.45 L (4.40-5.60) X 10*6/uL Hgb 7.9 L (13.0-17.0) g/dL Hct 26.8 L (39.6-50.0) % MCV 77.7 L (80.0-97.0) FL MCH 22.9 L (27.0-32.0) pg MCHC 29.5 L (32.0-37.0) g/dL RDW 20.3 H (11.5-14.5) % Plt Count 446 H (140-440) X 10*3/uL Immature Gran # 1.56 H (0.00-0.04) X 10*3/uL Neutrophils # 40.88 H (1.80-7.70) X 10*3/uL Lymphocytes # 0.60 L (0.90-5.00) X 10*3/uL Basophils # 0.14 H (0.00-0.10) X 10*3/uL Sodium (135-145) mmol/L Carbon Dioxide (21.6-31.8) mmol/L Anion Gap (4.00-12.00) mmol/L BUN/Creatinine Ratio (12.00-20.00) Ratio Glucose (70-110) mg/dL POC Glucose (mg/dL) (70-110) mg/dL Calcium (8.7-10.3) mg/dL Alkaline Phosphatase (41-126) U/L Total Protein (6.2-8.2) g/dL Albumin (3.8-4.9) g/dL Albumin/Globulin Ratio (1.60-3.17) Ratio RBC Folate 918 H (280 - 791) ng/mL Procalcitonin 3.27 H (0.02-0.09) ng/mL 10/05/23 10/05/23 10/05/23 Range/Units 04:15 12:07 20:06 WBC (4.50-10.00) X 10*3/uL RBC (4.40-5.60) X 10*6/uL Hgb (13.0-17.0) g/dL Hct (39.6-50.0) % MCV (80.0-97.0) FL MCH (27.0-32.0) pg MCHC (32.0-37.0) g/dL RDW (11.5-14.5) % Plt Count (140-440) X 10*3/uL Immature Gran # (0.00-0.04) X 10*3/uL Neutrophils # (1.80-7.70) X 10*3/uL Lymphocytes # (0.90-5.00) X 10*3/uL Basophils # (0.00-0.10) X 10*3/uL Sodium 134 L (135-145) mmol/L Carbon Dioxide 17.3 L (21.6-31.8) mmol/L Anion Gap 18.70 H (4.00-12.00) mmol/L BUN/Creatinine Ratio 36.50 H (12.00-20.00) Ratio Glucose 117 H (70-110) mg/dL POC Glucose (mg/dL) 145 H 129 H (70-110) mg/dL Calcium 8.3 L (8.7-10.3) mg/dL Alkaline Phosphatase 355 H (41-126) U/L Total Protein 5.0 L (6.2-8.2) g/dL Albumin 2.5 L (3.8-4.9) g/dL Albumin/Globulin Ratio 1.00 L (1.60-3.17) Ratio RBC Folate (280 - 791) ng/mL Procalcitonin (0.02-0.09) ng/mL Microbiology - Last 24 Hours (Table) 10/03/23 19:57 Blood Culture - Preliminary Blood Assessment and Plan Assessment: Weakness secondary to anemia, received 1 unit of packed red blood cells. Current hemoglobin 7.9 History of metastatic bladder cancer receiving immunotherapy Leukocytosis, procalcitonin was 3.27. Treated with ceftriaxone and azithromycin History of atrial fibrillation, anticoagulated with Eliquis History of COPD Prior history of tobacco use Cachectic, body mass index 18.2 kg/m Plan: The patient was seen and evaluated Medications reviewed, labs pending Stable and on 2 L nasal cannula Continue DuoNeb inhalations, Symbicort Remains on ceftriaxone, completed azithromycin Anticoagulated with Eliquis This patient was seen independently by the pulmonary nurse practitioner addressing pulmonary issues I have personally seen and examined the patient, performed the documentation and the assessment and plan as written. Number of minutes spent on the visit: 24.
[2023-10-06 09:55] LABS: ALT 27 U/L (10-49); AST 27 U/L (14-35); Albumin 2.7 g/dL (3.8-4.9); Albumin/Globulin Ratio 1.08 Ratio (1.60-3.17); Alkaline Phosphatase 498 U/L (41-126); BUN/Creat Ratio 29.71 Ratio (12.00-20.00); Blood Urea Nitrogen 20.8 mg/dL (9.0-27.0); Calcium 8.5 mg/dL (8.7-10.3); Carbon Dioxide 20.7 mmol/L (21.6-31.8); Chloride 100 mmol/L (96-109); Globulin 2.5 g/dL (1.6-3.3); Glucose 66 mg/dL (70-110); Sodium 136 mmol/L (135-145); Total Bilirubin 0.7 mg/dL (0.3-1.2); Total Protein 5.2 g/dL (6.2-8.2)
[2023-10-06 10:12] LABS: Basophils # (A) 0.03 X 10*3/uL (0.00-0.10); Basophils % (A) 0.1 %; Eosinophils # (A) 0.67 X 10*3/uL (0.04-0.35); Eosinophils % (A) 1.5 %; HCT 29.3 % (39.6-50.0); HGB 8.3 g/dL (13.0-17.0); Lymphocytes # (A) 0.59 X 10*3/uL (0.90-5.00); Lymphocytes % (A) 1.3 %; MCHC 28.3 g/dL (32.0-37.0); MCV 77.5 FL (80.0-97.0); Mean Platelet Volume 10.8 FL (9.5-12.2); Monocytes # (A) 2.75 X 10*3/uL (0.20-1.00); NRBC Per 100 WBC 0 X 10*3/uL (0.00-0.01); Neutrophils # (A) 40.59 X 10*3/uL (1.80-7.70); Neutrophils % (A) 87.7 %; Platelet Count 464 X 10*3/uL (140-440); RBC 3.78 X 10*6/uL (4.40-5.60); WBC 46.18 X 10*3/uL (4.50-10.00)
[2023-10-06 10:13] LABS: RBC Morphology Normal (Normal)
[2023-10-06 11:45] LABS: Glucose,Whole Blood 141 mg/dL (70-110)
--- NOTE | 2023-10-06 14:29 | P.PN ---
Subjective Progress Note Date: 10/06/23 Principal diagnosis: Reason for follow-up is leukocytosis/pneumonia Patient is a 63-year-old male with a past medical history significant for metastatic bladder cancer on chemo COPD atrial fibrillation on immunotherapy sent to the hospital concerning for abnormal lab and patient complaining of weakness. On today's evaluation that is 10/06/2023, the patient continues to be afebrile, the patient is on 2 L nasal cannula oxygen and breathing comfortably, the Pt denies having any chest pain or any worsening cough, the patient denies having any abdominal pain no vomiting or any diarrhea has been reported by the nursing staff. Patient white count is 46.18, creatinine 0.7 blood and sputum cultures currently pending Objective - Vital Signs Vital signs: Vital Signs Temp 97.6 F 10/06/23 12:29 Pulse 73 10/06/23 12:29 Resp 16 10/06/23 12:29 BP 117/68 10/06/23 12:29 Pulse Ox 96 10/06/23 12:29 FiO2 Intake & Output 10/05/23 10/06/23 10/06/23 18:59 06:59 18:59 Intake Total 590 Output Total 300 250 Balance 290 -250 Intake: Oral 590 Output: Urine 300 Stool 250 Other: # Voids 1 # Bowel Movements 1 - Exam GENERAL DESCRIPTION: Middle-age male lying in bed in no distress RESPIRATORY SYSTEM: Unlabored breathing , decreased breath sounds at bases HEART: S1 S2 regular rate and rhythm , ABDOMEN: Soft , no tenderness EXTREMITIES: No edema feet - Labs CBC & Chem 7: 10/06/23 05:29 10/06/23 05:29 Labs: Abnormal Lab Results - Last 24 Hours (Table) 10/05/23 10/06/23 10/06/23 Range/Units 20:06 05:29 05:29 WBC 46.18 H (4.50-10.00) X 10*3/uL RBC 3.78 L (4.40-5.60) X 10*6/uL Hgb 8.3 L (13.0-17.0) g/dL Hct 29.3 L (39.6-50.0) % MCV 77.5 L (80.0-97.0) FL MCH 22.0 L (27.0-32.0) pg MCHC 28.3 L (32.0-37.0) g/dL RDW 21.0 H (11.5-14.5) % Plt Count 464 H (140-440) X 10*3/uL Immature Gran # 1.55 H (0.00-0.04) X 10*3/uL Neutrophils # 40.59 H (1.80-7.70) X 10*3/uL Lymphocytes # 0.59 L (0.90-5.00) X 10*3/uL Monocytes # 2.75 H (0.20-1.00) X 10*3/uL Eosinophils # 0.67 H (0.04-0.35) X 10*3/uL Carbon Dioxide 20.7 L (21.6-31.8) mmol/L Anion Gap 15.30 H (4.00-12.00) mmol/L BUN/Creatinine Ratio 29.71 H (12.00-20.00) Ratio Glucose 66 L (70-110) mg/dL POC Glucose (mg/dL) 129 H (70-110) mg/dL Calcium 8.5 L (8.7-10.3) mg/dL Alkaline Phosphatase 498 H (41-126) U/L Total Protein 5.2 L (6.2-8.2) g/dL Albumin 2.7 L (3.8-4.9) g/dL Albumin/Globulin Ratio 1.08 L (1.60-3.17) Ratio / Range/Units 11:44 WBC (4.50-10.00) X 10*3/uL RBC (4.40-5.60) X 10*6/uL Hgb (13.0-17.0) g/dL Hct (39.6-50.0) % MCV (80.0-97.0) FL MCH (27.0-32.0) pg MCHC (32.0-37.0) g/dL RDW (11.5-14.5) % Plt Count (140-440) X 10*3/uL Immature Gran # (0.00-0.04) X 10*3/uL Neutrophils # (1.80-7.70) X 10*3/uL Lymphocytes # (0.90-5.00) X 10*3/uL Monocytes # (0.20-1.00) X 10*3/uL Eosinophils # (0.04-0.35) X 10*3/uL Carbon Dioxide (21.6-31.8) mmol/L Anion Gap (4.00-12.00) mmol/L BUN/Creatinine Ratio (12.00-20.00) Ratio Glucose (70-110) mg/dL POC Glucose (mg/dL) 141 H (70-110) mg/dL Calcium (8.7-10.3) mg/dL Alkaline Phosphatase (41-126) U/L Total Protein (6.2-8.2) g/dL Albumin (3.8-4.9) g/dL Albumin/Globulin Ratio (1.60-3.17) Ratio Microbiology - Last 24 Hours (Table) 10/05/23 15:31 Gram Stain - Preliminary Sputum Sputum Culture - Preliminary 10/03/23 19:33 Blood Culture - Preliminary Blood 10/03/23 19:57 Blood Culture - Preliminary Blood Assessment and Plan (1) Leukocytosis Current Visit: Yes Status: Acute Priority: Medium Code(s): D72.829 - ELEVATED WHITE BLOOD CELL COUNT, UNSPECIFIED SNOMED Code(s): 033813743 (2) Pneumonia Current Visit: Yes Status: Acute Priority: High Code(s): J18.9 - PNEUMON IA, UNSPECIFIED ORGANISM SNOMED Code(s): 201670031 Plan: 1patient presented to hospital with weakness he does have some shortness of breath and cough patient did have elevated white count elevated lactic acid chest x-ray with left basilar infiltrate question of pneumonia not entirely excluded 2-blood transfusion culture currently pending patient did have procalcitonin level 3.27 3-patient to continue with Rocephin he did have worsening of the white count however clinically patient mention improvement in his symptoms hence will monitor his white count closely question related to malignancy Dictation was produced using [employer] dictation software. please excuse any grammatical, word or spelling errors. Time with Patient: Less than 30
[2023-10-06 17:15] LABS: Glucose,Whole Blood 182 mg/dL (70-110)
[2023-10-06 20:29] LABS: Glucose,Whole Blood 123 mg/dL (70-110)
--- NOTE | 2023-10-07 00:58 | PN ---
PROGRESS NOTE DATE OF SERVICE: 10/06/2023 SUBJECTIVE: This 63-year-old gentleman admitted with COPD exacerbation, bilateral pneumonia, is being closely monitored. No chest pain, no palpitation. OBJECTIVE: VITAL SIGNS: Pulse is 88, blood pressure 130/70, and respirations 16. CHEST: Few scattered rhonchi and crackles. ABDOMEN: Soft. NERVOUS SYSTEM: Diffusely weak. LABORATORY DATA: WBC 46.18. Cultures are negative so far. ASSESSMENT: 1. Chronic obstructive pulmonary disease exacerbation, acute bilateral pneumonia, consider gram-negative. 2. Severe anemia, microcytic, possible skin malignancy. 3. Increased WBC, leukemoid reaction. 4. Metastatic bladder cancer with lung and osseous metastatic disease. RECOMMENDATIONS: Recommended to continue current management, repeat labs, continue the antibiotics. Closely follow with multiple consultants. Further recommendations to follow. Prognosis guarded. MMLUISL / IJN: [id number] /
[2023-10-07 06:52] LABS: Glucose,Whole Blood 102 mg/dL (70-110)
--- NOTE | 2023-10-07 09:39 | P.PN ---
Subjective Progress Note Date: 10/07/23 63-year-old male with a history of metastatic bladder cancer, who presents to the emergency department, on October 02, complaining of shortness of breath, and lower extremity edema. The patient apparently went to his oncologist office, to receive immunotherapy, but apparently was having significant weakness, shortness of breath, and lower extremity edema. He was also found to be anemic and for that reason was scented to the emergency department to be evaluated. The patient was recently hospitalized for similar episode. Currently, he is seen in the emergency department, room 21. The patient is currently on 2 L of oxygen. Saturations are 98%. It appears that he received a blood transfusion. Labs include a white count of 35.8, hemoglobin 6.3, hematocrit 22, and plate, hematocrit 22, and platelet count 427,000 427,000. Sodium 133, potassium 4.4, chlorides 103, CO2 22, BUN 21, and creatinine 0.65. Chest x-ray is consistent with perihilar infiltrates. The patient is seen today October 05, 2023 in follow-up on the regular medical floor. He is currently resting comfortably in bed. Awake and alert in no acute distress. Maintaining O2 saturations in the 90s on 2 L/min per nasal cannula. No IV fluids. He is status post 1 unit of packed red blood cells this admission. Hemoglobin 7.9. White count 44.2. Platelets 446. Sodium 134. Potassium 4.7. Bicarb 17. BUN 22. Creatinine 0.6. Glucose 117. He remains on DuoNeb inhalations, Symbicort, Solu-Medrol. Antibiotics in the form of ceftriaxone and azithromycin. The patient is seen today October 06, 2023 in follow-up on the regular medical floor. He is awake and alert in no acute distress. Sitting up in bed. Having a breathing treatment. Doing better today compared to yesterday. He is maintaining O2 saturations in the 90s on 2 L/min per nasal cannula. He remains on Rocephin, completed azithromycin. His procalcitonin was 3.27. He remains on DuoNeb ventilations, Symbicort. Anticoagulated with Eliquis. Glucose 99. Labs are pending. The patient is seen today October 07, 2023 in follow-up on the regular medical floor. He is currently resting comfortably in bed. Awake and alert in no acute distress. Maintaining good O2 saturations in the 90s on 2 L/min per nasal cannula. He remains on DuoNeb inhalations, Symbicort. He is anticoagulated with Eliquis. He remains on antibiotics in the form of ceftriaxone. He r eceived 1 unit of packed red blood cells this admission. Most recent hemoglobin 8.3. Glucose 102. Objective - Vital Signs Vital signs: Vital Signs Temp 98.2 F 10/07/23 06:46 Pulse 116 H 10/07/23 07:49 Resp 17 10/07/23 06:46 BP 107/63 10/07/23 06:46 Pulse Ox 96 10/07/23 07:39 FiO2 Intake & Output 10/06/23 10/07/23 10/07/23 18:59 06:59 18:59 Intake Total 1080 690 658 Output Total 850 300 Balance 230 390 658 Intake: Oral 1080 690 658 Output: Urine 600 300 Stool 250 - Exam GENERAL EXAM: Alert, thin, cachectic 63-year-old male, resting in bed, on 2 L nasal cannula, in no apparent distress. HEAD: Normocephalic. EYES: Normal reaction of pupils, equal size. NOSE: Clear with pink turbinates. THROAT: No erythema or exudates. NECK: No masses, no JVD. CHEST: No chest wall deformity. LUNGS: Equal air entry with no crackles, wheeze, rhonchi or dullness. CVS: S1 and S2 normal with no audible murmur, regular rhythm. ABDOMEN: No hepatosplenomegaly, normal bowel sounds, no guarding or rigidity. SPINE: No scoliosis or deformity SKIN: No rashes CENTRAL NERVOUS SYSTEM: No focal deficits, tone is normal in all 4 extremities. EXTREMITIES: There is no peripheral edema. No clubbing, no cyanosis. Peripheral pulses are intact. - Labs CBC & Chem 7: 10/06/23 05:10/06/23 05:29 Labs: Abnormal Lab Results - Last 24 Hours (Table) 10/06/23 10/06/23 10/06/23 Range/Units 05: 11:44 WBC 46.18 H (4.50-10.00) X 10*3/uL RBC 3.78 L (4.40-5.60) X 10*6/uL Hgb 8.3 L (13.0-17.0) g/dL Hct 29.3 L (39.6-50.0) % MCV 77.5 L (80.0-97.0) FL MCH 22.0 L (27.0-32.0) pg MCHC 28.3 L (32.0-37.0) g/dL RDW 21.0 H (11.5-14.5) % Plt Count 464 H (140-440) X 10*3/uL Immature Gran # 1.55 H (0.00-0.04) X 10*3/uL Neutrophils # 40.59 H (1.80-7.70) X 10*3/uL Lymphocytes # 0.59 L (0.90-5.00) X 10*3/uL Monocytes # 2.75 H (0.20-1.00) X 10*3/uL Eosinophils # 0.67 H (0.04-0.35) X 10*3/uL Carbon Dioxide 20.7 L (21.6-31.8) mmol/L Anion Gap 15.30 H (4.00-12.00) mmol/L BUN/Creatinine Ratio 29.71 H (12.00-20.00) Ratio Glucose 66 L (70-110) mg/dL POC Glucose (mg/dL) 141 H (70-110) mg/dL Calcium 8.5 L (8.7-10.3) mg/dL Alkaline Phosphatase 498 H (41-126) U/L Total Protein 5.2 L (6.2-8.2) g/dL Albumin 2.7 L (3.8-4.9) g/dL Albumin/Globulin Ratio 1.08 L (1.60-3.17) Ratio 10/06/23 10/06/23 Range/Units 17:13 20:26 WBC (4.50-10.00) X 10*3/uL RBC (4.40-5.60) X 10*6/uL Hgb (13.0-17.0) g/dL Hct (39.6-50.0) % MCV (80.0-97.0) FL MCH (27.0-32.0) pg MCHC (32.0-37.0) g/dL RDW (11.5-14.5) % Plt Count (140-440) X 10*3/uL Immature Gran # (0.00-0.04) X 10*3/uL Neutrophils # (1.80-7.70) X 10*3/uL Lymphocytes # (0.90-5.00) X 10*3/uL Monocytes # (0.20-1.00) X 10*3/uL Eosinophils # (0.04-0.35) X 10*3/uL Carbon Dioxide (21.6-31.8) mmol/L Anion Gap (4.00-12.00) mmol/L BUN/Creatinine Ratio (12.00-20.00) Ratio Glucose (70-110) mg/dL POC Glucose (mg/dL) 182 H 123 H (70-110) mg/dL Calcium (8.7-10.3) mg/dL Alkaline Phosphatase (41-126) U/L Total Protein (6.2-8.2) g/dL Albumin (3.8-4.9) g/dL Albumin/Globulin Ratio (1.60-3.17) Ratio Microbiology - Last 24 Hours (Table) 10/05/23 15:31 Gram Stain - Preliminary Sputum Sputum Culture - Preliminary Irene albicans 10/03/23 19:57 Blood Culture - Preliminary Blood 10/03/23 19:33 Blood Culture - Preliminary Blood Assessment and Plan Assessment: Weakness secondary to anemia, received 1 unit of packed red blood cells. Current hemoglobin 8.3 History of metastatic bladder cancer receiving immunotherapy Leukocytosis, procalcitonin was 3.27. Treated with ceftriaxone and azithromycin History of atrial fibrillation, anticoagulated with Eliquis History of COPD Prior history of tobacco use Cachectic, body mass index 18.2 kg/m Plan: The patient was seen and evaluated Medications and labs reviewed Stable and on 2 L nasal cannula Cleared for discharge from the pulmonary standpoint Continue his home pulmonary medications, oxygen Follow-up in our office in 1 week This patient was seen independently by the pulmonary nurse practitioner addressing pulmonary issues I have personally seen and examined the patient, performed the documentation and the assessment and plan as written. Number of minutes spent on the visit: 22.
[2023-10-07 10:19] LABS: BUN/Creat Ratio 29.67 Ratio (12.00-20.00); Blood Urea Nitrogen 17.8 mg/dL (9.0-27.0); Calcium 8.1 mg/dL (8.7-10.3); Carbon Dioxide 22.3 mmol/L (21.6-31.8); Chloride 98 mmol/L (96-109); Glucose 67 mg/dL (70-110); Potassium 4.1 mmol/L (3.5-5.5); Sodium 133 mmol/L (135-145)
[2023-10-07 11:05] LABS: Basophils # (A) 0.08 X 10*3/uL (0.00-0.10); Basophils % (A) 0.2 %; Eosinophils # (A) 0.41 X 10*3/uL (0.04-0.35); HCT 24.8 % (39.6-50.0); HGB 7.3 g/dL (13.0-17.0); Hypochromasia (M) 2+; Lymphocytes # (A) 0.67 X 10*3/uL (0.90-5.00); Lymphocytes % (A) 1.7 %; MCH 22.8 pg (27.0-32.0); MCHC 29.4 g/dL (32.0-37.0); MCV 77.5 FL (80.0-97.0); Mean Platelet Volume 10.8 FL (9.5-12.2); Monocytes # (A) 2.37 X 10*3/uL (0.20-1.00); NRBC Per 100 WBC 0 X 10*3/uL (0.00-0.01); Neutrophils # (A) 34.66 X 10*3/uL (1.80-7.70); Neutrophils % (A) 87.5 %; Platelet Count 311 X 10*3/uL (140-440); RDW 21.1 % (11.5-14.5); WBC 39.62 X 10*3/uL (4.50-10.00)
[2023-10-07 12:24] LABS: Glucose,Whole Blood 136 mg/dL (70-110)
--- NOTE | 2023-10-07 12:35 | P.CRDCN ---
History of Present Illness Consult date: 10/07/23 Reason for Consult (text): A-fib with RVR History of present illness: This is a 63-year-old male patient of Dr. Lentz with past medical history of paroxysmal atrial fibrillation, sick sinus syndrome, hypertension, advanced bladder cancers on immunotherapy, COPD, chronic kidney disease. We have been asked to evaluate the patient for A-fib with RVR. Patient was initially admitted to the [facility] floor on 10/02 which time he presented with weakness, shortness of breath and lower extremity edema. Patient was found to have a hemoglobin of 6.3 status post transfusion of 2 units of packed RBCs. She has significant leukocytosis started on IV antibiotics. This morning, patient went into A-fib with RVR at 120 bpm. He was transferred to the cardiac stepdown unit. Heart rate is currently 120s, blood pressure 102/70, pulse ox 96% on 2 L nasal cannula. Patient has been maintained on his home medications including amiodarone 200 mg daily and metoprolol tartrate 50 mg 3 times daily and Eliquis. Patient states he has a little shortness of breath, no palpitations, no fever or chills. He denies having any blood in or dark stools. He denies lightheadedness or dizziness. EKG: Atrial fibrillation at 114 bpm Chest x-ray: Perihilar and upper lobe scattered infiltrates correlate for pneumonia Laboratory studies: WBC 39.6, hemoglobin 7.3, platelet count 311. Sodium 133, potassium 4.1, BUN 17 creatinine 0.6. Influenza A, influenza B, RSV, COVID-19, Legionella all negative. Home cardiac medications: Eliquis 2.5 mg twice daily, amiodarone 200 mg daily, metoprolol tartrate 50 mg 3 times daily. Echocardiogram performed on 06/07/2023 revealed EF of 50 to 55%, mild MR. Review Of Systems: At the time of my exam: CONSTITUTIONAL: Denies fever or chills. Reports generalized weakness HEENT: Denies blurred vision, vision changes, or eye pain. Denies hemoptysis CARDIOVASCULAR: Denies chest pain. Denies orthopnea. Denies PND. Denies pa lpitations RESPIRATORY: Denies shortness of breath. GASTROINTESTINAL: Denies abdominal pain. Denies nausea or vomiting. HEMATOLOGIC: Denies bleeding disorders. GENITOURINARY: Denies any blood in urine. SKIN: Denies puritis. Denies rash. Physical examination: Gen: This is a frail cachectic appearing 63-year-old male in no acute respiratory distress. VS: reviewed HEENT: Head is atraumatic, normocephalic. Pupils equal, round. Sclerae is anicteric. NECK: Supple. No JVD. LUNGS: Clear to auscultation. No wheezes or rhonchi. No intercostal retractions. HEART: Irregular rate and rhythm. No murmur. Tachycardic ABDOMEN: Soft No tenderness. EXTREMITIES: No pedal edema. No calf tenderness. NEUROLOGICAL: Patient is awake, alert and oriented x3. Assessment: Paroxysmal atrial fibrillation with RVR Possible pneumonia on x-ray, patient followed by pulmonary medicine Hypertension, currently hypotensive Metastatic bladder cancer COPD Chronic kidney disease Plan: Continue patient's home cardiac medications Increase metoprolol to 75 mg 3 times daily Consider holding Eliquis if any signs of bleeding No need to repeat echocardiogram Further recommendations to follow based upon clinical course Thank you kindly for this consultation. Nurse practitioner note has been reviewed, I agree with documented findings and plan of care. Patient was seen and examined. 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 left nephrostomy tube (2023) Past Anesthesia/Blood Transfusion Reactions: No Reported Reaction Past Psychological History: No Psychological Hx Reported Smoking Status: Former smoker Past Alcohol Use History: None Reported Past Drug Use History: None Reported - Past Family History Father Family Medical History: Cancer Additional Family Medical History / Comment(s): lung cancer, smoker Medications and Allergies Home Medications Medication Instructions Recorded Confirmed Type Ondansetron [Zofran] 4 mg PO Q4H PRN 05/25/23 10/03/23 History HYDROcodone/APAP 10-325MG [[place] 1 tab PO Q4HR PRN 06/06/23 10/03/23 History 10-325] Apixaban [Eliquis] 2.5 mg PO BID 07/01/23 10/03/23 History Budesonide/Formoterol Fumarate 2 puff INHALATION RT-BID PRN 07/01/23 10/03/23 History [Symbicort 160-4.5 Mcg Inhaler] Ipratropium-Albuterol Nebulize 3 ml INHALATION RT-QID PRN 07/01/23 10/03/23 History [Duoneb 0.5 mg-3 mg/3 ml Soln] Metoprolol Tartrate [Lopressor] 50 mg PO TID 30 Days #90 tab 07/06/23 10/03/23 Rx Amiodarone [Cordarone] 200 mg PO DAILY 07/19/23 10/03/23 History Albuterol Sulfate [Albuterol 2 puff INHALATION RT-Q4H PRN 09/17/23 10/03/23 History Sulfate Hfa] Magnesium Hydroxide [Milk of 2,400 mg PO BID PRN ml 09/24/23 10/03/23 Rx Magnesia] Sucralfate [Carafate] 1 gm PO AC-BID #60 tab 09/24/23 10/03/23 Rx polyethylene glycoL 3350 [Miralax] 17 gm PO DAILY #30 packet 09/24/23 10/03/23 Rx Sennosides-Docusate Sodium 2 tab PO BID 10/03/23 10/03/23 History [Senokot-S] Allergies Allergy/AdvReac Type Severity Reaction Status Date / Time Iodinated Contrast Media Allergy Neck Verified 10/03/23 19:38 swelling/Rash Physical Exam Vitals: Vital Signs Temp Pulse Pulse Pulse Resp BP Pulse Ox 10/07/23 09:52 120 H 94/69 10/07/23 07:49 116 H 10/07/23 07:39 96 10/07/23 07:38 114 H 10/07/23 06:46 98.2 F 128 H 17 107/63 10/07/23 01:23 98.1 F 66 16 111/68 98 10/06/23 20:00 88 64 16 91 L 10/06/23 19:57 98.3 F 88 16 116/67 91 L 10/06/23 15:56 75 10/06/23 15:45 73 10/06/23 12:29 97.6 F 73 16 117/68 96 Intake and Output 10/06/23 10/07/23 10/07/23 22:59 06:59 14:59 Intake Total 1180 590 658 Output Total 600 300 Balance 580 290 658 Intake: Oral 1180 590 658 Output: Urine 600 300 Results 10/07/23 05:50 10/07/23 05:50 CBC 10/07/23 Range/Units 05:50 WBC 39.62 H (4.50-10.00) X 10*3/uL RBC 3.20 L (4.40-5.60) X 10*6/uL Hgb 7.3 L (13.0-17.0) g/dL Hct 24.8 L (39.6-50.0) % Plt Count 311 (140-440) X 10*3/uL Comprehensive Metabolic Panel 10/07/23 Range/Units 05:50 Sodium 133 L (135-145) mmol/L Potassium 4.1 (3.5-5.5) mmol/L Chloride 98 (96-109) mmol/L Carbon Dioxide 22.3 (21.6-31.8) mmol/L BUN 17.8 (9.0-27.0) mg/dL Creatinine 0.6 (0.6-1.5) mg/dL Glucose 67 L (70-110) mg/dL Calcium 8.1 L (8.7-10.3) mg/dL Current Medications Generic Name Dose Route Start Last Admin Trade Name Freq PRN Reason Stop Dose Admin Hydrocodone Bitart/Acetaminophen 1 each 10/03/23 20:38 10/07/23 05:20 Hydrocodone/Apap 10-325mg 1 Each Tab PO 1 each Q4HR PRN Administration Pain Albuterol/Ipratropium 3 ml 10/03/23 20:37 Ipratropium-Albuterol 3 Ml Neb INHALATION RT-Q4H PRN shortness of breath Albuterol/Ipratropium 3 ml 10/04/23 13:14 10/07/23 11:35 Ipratropium-Albuterol 3 Ml Neb INHALATION Not Given RT-QID SUGAR Amiodarone HCl 200 mg 10/04/23 09:00 10/07/23 06:55 Amiodarone 200 Mg Tab PO 200 mg DAILY SUGAR Administration Apixaban 2.5 mg 10/03/23 21:00 10/07/23 07:23 Apixaban 2.5 Mg Tablet PO 2.5 mg BID SUGAR Administration Protocol Budesonide/Formoterol Fumarate 2 puff 10/03/23 20:38 10/07/23 07:38 Symbicort 160-4.5 Mcg Inhaler INHALATION 2 puff RT-BID PRN Administration Shortness Of Breath Dextrose/Water 25 ml 10/04/23 13:16 Dextrose 50% Syringe 50 Ml IVP PER PROTOCOL PRN Hypoglycemia Protocol Dextrose/Water 50 ml 10/04/23 13:16 Dextrose 50% Syringe 50 Ml IVP PER PROTOCOL PRN Hypoglycemia Protocol Folic Acid 1 mg 10/05/23 12:00 10/06/23 12:03 Folic Acid 1 Mg Tab PO 1 mg DAILY@1200 SUGAR Administration Insulin Aspart 0 unit 10/04/23 17:30 10/07/23 07:28 Insulin Aspart (Novolog) 100 Unit/Ml Vial SQ Not Given ACHS [facility] Protocol Magnesium Hydroxide 2,400 mg 10/03/23 20:38 Magnesium Hydroxide 2,400 Mg/30 Ml Cup PO BID PRN Constipation Metoprolol Tartrate 50 mg 10/03/23 22:00 10/07/23 06:55 Metoprolol Tartrate 50 Mg Tab PO 50 mg TID SUGAR Administration Miscellaneous Information 1 each 10/03/23 20:37 Pneumonia Protocol Utilized 1 Each Misc PO ONCE PRN Per Protocol Multivitamins 1 each 10/05/23 12:00 10/06/23 12:03 Multivitamins, Thera 1 Each Tab PO 1 each DAILY@1200 SUGAR Administration Naloxone HCl 0.2 mg 10/03/23 20:33 Naloxone 0.4 Mg/Ml 1 Ml Vial IV Q2M PRN Opioid Reversal Ondansetron HCl 4 mg 10/03/23 20:38 10/05/23 22:02 Ondansetron 4 Mg Tab PO 4 mg Q4H PRN Administration Nausea Pantoprazole Sodium 40 mg 10/04/23 13:15 10/07/23 07:23 Pantoprazole 40 Mg Tablet PO 40 mg AC-BRKFST [facility] Administration Polyethylene Glycol 17 gm 10/04/23 09:00 10/07/23 07:28 Polyethylene Glycol 3350 17 Gm Powd.Pack PO Not Given DAILY SUGAR Senna/Docusate Sodium 2 each 10/03/23 21:00 10/07/23 07:28 Sennosides-Docusate Sodium 1 Each Tab PO Not Given BID [facility] Sucralfate 1 gm 10/03/23 20:45 10/07/23 07:23 Sucralfate 1 Gm Tab PO 1 gm AC-BID SUGAR Administration Thiamine HCl 100 mg 10/05/23 12:00 10/06/23 12:03 Thiamine 100 Mg Tab PO 100 mg DAILY@1200 SUGAR Administration Intake and Output 10/06/23 10/07/23 10/07/23 22:59 06:59 14:59 Intake Total 1180 590 658 Output Total 600 300 Balance 580 290 658 Intake: Oral 1180 590 658 Output: Urine 600 300 10/07/23 05:50 10/07/23 05:50
--- NOTE | 2023-10-07 12:42 | XR ---
EXAMINATION TYPE: XR chest 1V portable DATE OF EXAM: 10/07/2023 Comparison: 10/04/2023 Clinical History: 63-year-old male pneumonia Findings: Heart normal size. Hyperinflation. Multifocal patchy and interstitial opacities persist. Patchy opaci ty in the left basal fluid. Impression: COPD with persistent bilateral multifocal infiltrates. Infiltrate at the left base is increasing.
[2023-10-07] MEDS: METOPROLOL TARTRATE 25 MG TAB PO STA (14:22)
--- NOTE | 2023-10-07 15:51 | P.PN ---
Subjective Progress Note Date: 10/07/23 Principal diagnosis: Reason for follow-up is leukocytosis/pneumonia Patient is a 63-year-old male with a past medical history significant for metastatic bladder cancer on chemo COPD atrial fibrillation on immunotherapy sent to the hospital concerning for abnormal lab and patient complaining of weakness. On today's evaluation that is 10/07/2023, Patient is afebrile patient is currently on 2 L nasal cannula oxygen and denies having any shortness of breath, the patient denies any chest pain or cough, the patient denies any nausea vomiting did not have any abdominal pain and no diarrhea patient did have A-fib with RVR for the patient to be transferred to cardiac unit. Patient white count is 39.62, creatinine 0.6 sputum is growing Irene albicans blood urine culture has been negative Objective - Vital Signs Vital signs: Vital Signs Temp 98.2 F 10/07/23 12:27 Pulse 123 H 10/07/23 12:27 Resp 19 10/07/23 12:27 BP 102/70 10/07/23 12:27 Pulse Ox 98 10/07/23 12:27 FiO2 Intake & Output 10/06/23 10/07/23 10/07/23 18:59 06:59 18:59 Intake Total 1080 690 776 Output Total 850 300 Balance 230 390 776 Intake: Oral 1080 690 776 Output: Urine 600 300 Stool 250 - Exam GENERAL DESCRIPTION: Middle-age male lying in bed in no distress RESPIRATORY SYSTEM: Unlabored breathing , decreased breath sounds at bases HEART: S1 S2 regular rate and rhythm , ABDOMEN: Soft , no tenderness EXTREMITIES: No edema feet - Labs CBC & Chem 7: 10/07/23 05:50 10/07/23 05:50 Labs: Abnormal Lab Results - Last 24 Hours (Table) 10/06/23 10/06/23 10/07/23 Range/Units 17:13 20:26 05:50 WBC 39.62 H (4.50-10.00) X 10*3/uL RBC 3.20 L (4.40-5.60) X 10*6/uL Hgb 7.3 L (13.0-17.0) g/dL Hct 24.8 L (39.6-50.0) % MCV 77.5 L (80.0-97.0) FL MCH 22.8 L (27.0-32.0) pg MCHC 29.4 L (32.0-37.0) g/dL RDW 21.1 H (11.5-14.5) % Immature Gran # 1.43 H (0.00-0.04) X 10*3/uL Neutrophils # 34.66 H (1.80-7.70) X 10*3/uL Lymphocytes # 0.67 L (0.90-5.00) X 10*3/uL Monocytes # 2.37 H (0.20-1.00) X 10*3/uL Eosinophils # 0.41 H (0.04-0.35) X 10*3/uL Hypochromasia (manual) 2+ A Sodium (135-145) mmol/L Anion Gap (4.00-12.00) mmol/L BUN/Creatinine Ratio (12.00-20.00) Ratio Glucose (70-110) mg/dL POC Glucose (mg/dL) 182 H 123 H (70-110) mg/dL Calcium (8.7-10.3) mg/dL 10/07/23 10/07/23 Range/Units 05:50 12:23 WBC (4.50-10.00) X 10*3/uL RBC (4.40-5.60) X 10*6/uL Hgb (13.0-17.0) g/dL Hct (39.6-50.0) % MCV (80.0-97.0) FL MCH (27.0-32.0) pg MCHC (32.0-37.0) g/dL RDW (11.5-14.5) % Immature Gran # (0.00-0.04) X 10*3/uL Neutrophils # (1.80-7.70) X 10*3/uL Lymphocytes # (0.90-5.00) X 10*3/uL Monocytes # (0.20-1.00) X 10*3/uL Eosinophils # (0.04-0.35) X 10*3/uL Hypochromasia (manual) Sodium 133 L (135-145) mmol/L Anion Gap 12.70 H (4.00-12.00) mmol/L BUN/Creatinine Ratio 29.67 H (12.00-20.00) Ratio Glucose 67 L (70-110) mg/dL POC Glucose (mg/dL) 136 H (70-110) mg/dL Calcium 8.1 L (8.7-10.3) mg/dL Microbiology - Last 24 Hours (Table) 10/05/23 15:31 Gram Stain - Final Sputum Sputum Culture - Final Irene albicans 10/03/23 19:33 Blood Culture - Preliminary Blood 10/03/23 19:57 Blood Culture - Preliminary Blood Assessment and Plan (1) Leukocytosis Current Visit: Yes Status: Acute Priority: Medium Code(s): D72.829 - ELEVATED WHITE BLOOD CELL COUNT, UNSPECIFIED SNOMED Code(s): 146676442 (2) Pneumonia Current Visit: Yes Status: Acute Priority: High Code(s): J18.9 - PNEUMONIA, UNSPECIFIED ORGANISM SNOMED Code(s): 208938873 Plan: 1patient presented to hospital with weakness he does have some shortness of breath and cough patient did have elevated white count elevated lactic acid armani st x-ray with left basilar infiltrate question of pneumonia not entirely excluded 2-blood transfusion culture currently pending patient did have procalcitonin level 3.27 3-patient has received 4 doses of Rocephin 3 doses of Zithromax will consider short course of Omnicef, sputum is showing Irene more likely colonization and possible oropharyngeal candidiasis with elevated white count we will try nystatin swish and swallow cannot use Diflucan as the patient is on amiodarone Family the bedside questions were answered Dictation was produced using [employer] dictation software. please excuse any gra mmatical, word or spelling errors. Time with Patient: Greater than 30
[2023-10-07 16:19] LABS: Glucose,Whole Blood 102 mg/dL (70-110)
[2023-10-07] MEDS: METOPROLOL TARTRATE 25 MG TAB PO SCH (16:28)
[2023-10-07] MEDS: NYSTATIN 100,000 UNIT/ML SUSP 500,000 UNIT/5 ML CUP PO SCH (18:08)
[2023-10-07 20:16] LABS: Glucose,Whole Blood 158 mg/dL (70-110)
--- NOTE | 2023-10-08 02:57 | PN ---
PROGRESS NOTE DATE OF SERVICE: 10/07/2023 HISTORY OF PRESENT ILLNESS: This 63-year-old gentleman admitted with COPD exacerbation, acute bilateral pneumonia, also developed tachycardia and possibly atrial fibrillation with fast ventricular rate. The patient is short of breath. Blood pressure is also fluctuating. Hemoglobin 7.3. The patient will be transferred to telemetry for further evaluation and treatment. The patient received 1 unit of transfusion. PAST MEDICAL HISTORY: Reviewed. REVIEW OF SYSTEMS: 14-point review is negative. CURRENT MEDICATIONS: Reviewed include DuoNeb, dose and rest of medications noted. PHYSICAL EXAMINATION: VITAL SIGNS: Pulse is 116, irregular. Blood pressure 94/69, respirations 16. HEENT: Conjunctiva pale. CARDIOVASCULAR: S1, S2. RESPIRATIONS: Diminished at bases. Few scattered rhonchi. ABDOMEN: Soft. LEGS: No swelling. Neurologic: Nonfocal. LABS: Reviewed, 39.6, hemoglobin 7.3, rest of the labs are noted. ASSESSMENT: 1. Chronic obstructive pulmonary disease acute exacerbation, acute bilateral pneumonia, consider gram-negative. 2. Atrial fibrillation with fast ventricular rate. 3. Severe anemia, microcytic, symptomatic, possibly secondary to malignancy. 4. Increased WBC, leukemoid reaction. 5. Metastatic bladder cancer with lung and osseous metastatic disease. 6. Full code. 7. Multiple complex medical issues. RECOMMENDATIONS: I recommended in this 63-year-old gentleman who presented with multiple complex medical issues to monitor the patient closely. Continue current management. Continue the bronchodilators, empiric antibiotics, otherwise, I would also recommend cardiology consultation. The patient might require amiodarone drip, and we will transfer to telemetry for continued monitoring. I would also recommend repeat chest x-ray. The patient is already on beta blockers as well. Prognosis guarded. Further recommendations to follow. See orders for details. MMODL / IJN: [id number] /
[2023-10-08 06:30] LABS: Glucose,Whole Blood 89 mg/dL (70-110)
[2023-10-08 07:19] LABS: Anisocytosis Slight; Basophils # (A) 0.6 k/uL (0-0.2); Basophils % (A) 1 %; Eosinophils # (A) 0.7 k/uL (0-0.7); Eosinophils % (A) 1 %; HCT 27.2 % (39.0-53.0); Hypochromasia Marked; Lymphocytes # (A) 0.4 k/uL (1.0-4.8); Lymphocytes % (A) 1 %; MCH 23.9 pg (25.0-35.0); MCHC 29.4 g/dL (31.0-37.0); MCV 81.1 fL (80.0-100.0); Mean Platelet Volume 9.2; Microcytosis Slight; Monocytes # (A) 2.4 k/uL (0-1.0); Monocytes % (A) 5 %; Neutrophils # (A) 42.4 k/uL (1.3-7.7); Neutrophils % (A) 90 %; Platelet Count 280 k/uL (150-450); RBC 3.35 m/uL (4.30-5.90); RDW 18.7 % (11.5-15.5); WBC 46.9 k/uL (3.8-10.6)
[2023-10-08 07:32] LABS: African American GFR (CKD) >90 (>60 ml/min/1.73 sqM); Anion Gap 8 mmol/L; Blood Urea Nitrogen 22 mg/dL (9-20); Calcium 8.1 mg/dL (8.4-10.2); Carbon Dioxide 21 mmol/L (22-30); Chloride 100 mmol/L (98-107); Glucose 79 mg/dL (74-99); Non-African American GFR(CKD) >90 (>60 ml/min/1.73 sqM); Potassium 3.9 mmol/L (3.5-5.1); Sodium 129 mmol/L (137-145)
[2023-10-08] MEDS: CEFDINIR 300 MG CAP PO SCH (08:40)
[2023-10-08 11:24] LABS: Glucose,Whole Blood 96 mg/dL (70-110)
--- NOTE | 2023-10-08 12:43 | P.PN ---
Subjective Progress Note Date: 10/08/23 Reason for Consult (text): A-fib with RVR History of present illness: This is a 63-year-old male patient of Dr. Lentz with past medical history of paroxysmal atrial fibrillation, sick sinus syndrome, hypertension, advanced bladder cancers on immunotherapy, COPD, chronic kidney disease. We have been asked to evaluate the patient for A-fib with RVR. Patient was initially admitted to the [facility] floor on 10/02 which time he presented with weakness, shortness of breath and lower extremity edema. Patient was found to have a hemoglobin of 6.3 status post transfusion of 2 units of packed RBCs. She has significant leukocytosis started on IV antibiotics. This morning, patient went into A-fib with RVR at 120 bpm. He was transferred to the cardiac stepdown unit. Heart rate is currently 120s, blood pressure 102/70, pulse ox 96% on 2 L nasal cannula. Patient has been maintained on his home medications including amiodarone 200 mg daily and metoprolol tartrate 50 mg 3 times daily and Eliquis. Patient states he has a little shortness of breath, no palpitations, no fever or chills. He denies having any blood in or dark stools. He denies lig htheadedness or dizziness. EKG: Atrial fibrillation at 114 bpm Chest x-ray: Perihilar and upper lobe scattered infiltrates correlate for pneumonia Laboratory studies: WBC 39.6, hemoglobin 7.3, platelet count 311. Sodium 133, potassium 4.1, BUN 17 creatinine 0.6. Influenza A, influenza B, RSV, COVID-19, Legionella all negative. Home cardiac medications: Eliquis 2.5 mg twice daily, amiodarone 200 mg daily, metoprolol tartrate 50 mg 3 times daily. Echocardiogram performed on 06/07/2023 revealed EF of 50 to 55%, mild MR. 7/1 Yesterday, metoprolol was increased to 75 mg 3 times daily. Heart rate is running in the 60s and 80s, blood pressure 97/59, pulse ox 98% on 1 L. Patient has been maintained on Eliquis. Repeat blood work reveals WBC 46, hemoglobin 8, BUN 22, creatinine 0.53, sodium 129, potassium 3.9. Physical examination: Gen: This is a frail cachectic appearing 63-year-old male in no acute respiratory distress. VS: reviewed HEENT: Head is atraumatic, normocephalic. Pupils equal, round. Sclerae is anicteric. NECK: Supple. No JVD. LUNGS: Clear to auscultation. No wheezes or rhonchi. No intercostal retractions. HEART: Irregular rate and rhythm. No murmur. ABDOMEN: Soft No tenderness. EXTREMITIES: No pedal edema. No calf tenderness. NEUROLOGICAL: Patient is awake, alert and oriented x3. Assessment: Paroxysmal atrial fibrillation with RVR Possible pneumonia on x-ray, patient followed by pulmonary medicine Hypertension, currently hypotensive Metastatic bladder cancer COPD Chronic kidney disease Plan: Continue patient's home cardiac medications Continue increased dose of metoprolol 75 mg 3 times daily Consider holding Eliquis if any signs of bleeding No need to repeat echocardiogram Cardiology will sign off this case and follow on an as-needed basis. Please reconsult for any new concerns. Patient may follow-up in the office in one to 2 weeks. Patient may be transferred back to [facility] floor, discontinue telemetry Nurse practitioner note has been reviewed, I agree with documented findings and plan of care. Patient was seen and examined. Objective - Vital Signs Vital signs: Vital Signs Temp 97.8 F 10/08/23 08:10 Pulse 65 10/08/23 08:10 Resp 18 10/08/23 08:10 BP 97/59 10/08/23 08:10 Pulse Ox 98 10/08/23 08:17 FiO2 Intake & Output 10/07/23 10/08/23 10/08/23 18:59 06:59 18:59 Intake Total 1496 Output Total 100 Balance 1496 -100 Intake: Oral 1496 Output: Urine 100 - Labs CBC & Chem 7: 10/08/23 06:56 10/08/23 06:56 Labs: Abnormal Lab Results - Last 24 Hours (Table) 10/07/23 10/07/23 10/07/23 Range/Units 05:50 12:23 20:09 WBC 39.62 H (4.50-10.00) X 10*3/uL RBC 3.20 L (4.40-5.60) X 10*6/uL Hgb 7.3 L (13.0-17.0) g/dL Hct 24.8 L (39.6-50.0) % MCV 77.5 L (80.0-97.0) FL MCH 22.8 L (27.0-32.0) pg MCHC 29.4 L (32.0-37.0) g/dL RDW 21.1 H (11.5-14.5) % Immature Gran # 1.43 H (0.00-0.04) X 10*3/uL Neutrophils # 34.66 H (1.80-7.70) X 10*3/uL Lymphocytes # 0.67 L (0.90-5.00) X 10*3/uL Monocytes # 2.37 H (0.20-1.00) X 10*3/uL Eosinophils # 0.41 H (0.04-0.35) X 10*3/uL Hypochromasia (manual) 2+ A Sodium (137-145) mmol/L Carbon Dioxide (22-30) mmol/L BUN (9-20) mg/dL Creatinine (0.66-1.25) mg/dL POC Glucose (mg/dL) 136 H 158 H (70-110) mg/dL Calcium (8.4-10.2) mg/dL 10/08/23 10/08/23 Range/Units 06:56 06:56 WBC 46.9 H (4.50-10.00) X 10*3/uL RBC 3.35 L (4.40-5.60) X 10*6/uL Hgb 8.0 L (13.0-17.0) g/dL Hct 27.2 L (39.6-50.0) % MCV (80.0-97.0) FL MCH 23.9 L (27.0-32.0) pg MCHC 29.4 L (32.0-37.0) g/dL RDW 18.7 H (11.5-14.5) % Immature Gran # (0.00-0.04) X 10*3/uL Neutrophils # (1.80-7.70) X 10*3/uL Lymphocytes # (0.90-5.00) X 10*3/uL Monocytes # (0.20-1.00) X 10*3/uL Eosinophils # (0.04-0.35) X 10*3/uL Hypochromasia (manual) Sodium 129 L (137-145) mmol/L Carbon Dioxide 21 L (22-30) mmol/L BUN 22 H (9-20) mg/dL Creatinine 0.53 L (0.66-1.25) mg/dL POC Glucose (mg/dL) (70-110) mg/dL Calcium 8.1 L (8.4-10.2) mg/dL Microbiology - Last 24 Hours (Table) 10/03/23 19:57 Blood Culture - Preliminary Blood 10/05/23 15:31 Gram Stain - Final Sputum Sputum Culture - Final Irene albicans 10/03/23 19:33 Blood Culture - Preliminary Blood
--- NOTE | 2023-10-08 16:00 | P.PN ---
Subjective Progress Note Date: 10/08/23 Principal diagnosis: Metastatic bladder carcinoma. Acute resp infection In f/u pt reports that resp treatments are causing him to cough which causes him pain. He is expectorating copious, thick secretions per pt. He was encouraged to cont resp treatments as prescribed. No fevers, N,V, chest pain or unusual SOB. Objective - Vital Signs Vital signs: Vital Signs Temp 97.9 F 10/08/23 11:52 Pulse 64 10/08/23 11:52 Resp 18 10/08/23 11:52 BP 100/63 10/08/23 11:52 Pulse Ox 98 10/08/23 11:52 FiO2 Intake & Output 10/07/23 10/08/23 10/08/23 18:59 06:59 18:59 Intake Total 1496 360 Output Total 100 Balance 1496 -100 360 Weight 62.596 kg Intake: Oral 1496 360 Output: Urine 100 - Constitutional General appearance: Present: cooperative, no acute distress, thin - EENT Eyes: Present: anicteric sclerae, EOMI ENT: Present: hearing grossly normal - Respiratory Respiratory: bilateral: rhonchi (anterior upper lobes, medially) - Cardiovascular Rhythm: regular Heart sounds: normal: S1, S2 Abnormal Heart Sounds: Absent: systolic murmur, diastolic murmur, rub, S3 Gallop, S4 Gallop, click, other - Peripheral edema leg Peripheral Edema: bilateral: 2+ (mid calf distal), Pitting - Gastrointestinal General gastrointestinal: Present: soft - Integumentary Integumentary: Present: normal - Neurologic Neurologic: Present: CNII-XII intact - Musculoskeletal Musculoskeletal: Present: generalized weakness, strength equal bilaterally - Psychiatric Psychiatric: Present: A&O x's 3, appropriate affect, intact judgment & insight - Labs CBC & Chem 7: 10/08/23 06:56 10/08/23 06:56 Labs: Abnormal Lab Results - Last 24 Hours (Table) 10/07/23 10/08/23 10/08/23 Range/Units 20:09 06:56 06:56 WBC 46.9 H (3.8-10.6) k/uL RBC 3.35 L (4.30-5.90) m/uL Hgb 8.0 L (13.0-17.5) gm/dL Hct 27.2 L (39.0-53.0) % MCH 23.9 L (25.0-35.0) pg MCHC 29.4 L (31.0-37.0) g/dL RDW 18.7 H (11.5-15.5) % Neutrophils # 42.4 H (1.3-7.7) k/uL Lymphocytes # 0.4 L (1.0-4.8) k/uL Monocytes # 2.4 H (0-1.0) k/uL Basophils # 0.6 H (0-0.2) k/uL Sodium 129 L (137-145) mmol/L Carbon Dioxide 21 L (22-30) mmol/L BUN 22 H (9-20) mg/dL Creatinine 0.53 L (0.66-1.25) mg/dL POC Glucose (mg/dL) 158 H (70-110) mg/dL Calcium 8.1 L (8.4-10.2) mg/dL Microbiology - Last 24 Hours (Table) 10/03/23 19:33 Blood Culture - Preliminary Blood 10/03/23 19:57 Blood Culture - Preliminary Blood 10/05/23 15:31 Gram Stain - Final Sputum Sputum Culture - Final Irene albicans - Imaging and Cardiology Chest x-ray: report reviewed Assessment and Plan (1) Acute exacerbation of chronic obstructive pulmonary disease Current Visit: Yes Status: Acute Priority: High Code(s): J44.1 - CHRONIC OBSTRUCTIVE PULMONARY DISEASE W (ACUTE) EXACERBATION SNOMED Code(s): 067340702 (2) Malignant neoplasm metastatic from bladder Current Visit: Yes Status: Chronic Priority: High Code(s): C67.9 - MALIGNANT NEOPLASM OF BLADDER, UNSPECIFIED SNOMED Code(s): 99376743 (3) Iron deficiency anemia Current Visit: No Status: Chronic Priority: Medium Code(s): D50.9 - IRON DEFICIENCY ANEMIA, UNSPECIFIED SNOMED Code(s): 70809333 Plan: Admit for respiratory insufficiency -Chest x-ray from yesterday is reporting COPD with persistent bilateral multif ocal infiltrates, infiltrate at the left base is increasing -Patient encouraged to continue with respiratory treatments as prescribed. He was encouraged to ask for pain medications if he needed them. -Sputum cultures are positive for fungal infection -Defer treatment of the same to Pulmonary Metastatic bladder carcinoma -Most recent treatment cycle 6, day 1, day 8 held due to to low hemoglobin -Previous suspicions for slight disease progression in liver. Plan was to do 2 additional cycles then repeat PET scan. PET scan is scheduled for 10/18/2023. F/U sched to discuss results and plan of care. No worsening of LFTs or bilirubin at this time Iron deficient anemia -S/P 1 unit of PRBCs for hemoglobin of 6.3 on admit, Hgb stable at 8 today -Parenteral iron in the office, last dose of venofer was 09/12. Ferritin in >5000, no additional iron at this time -No reported bleeding. Treatment effects vs poor nutrition vs disease? -Transfuse for Hgb <7 or if symptomatic
[2023-10-08 16:28] LABS: Glucose,Whole Blood 99 mg/dL (70-110)
[2023-10-08 20:08] LABS: Glucose,Whole Blood 128 mg/dL (70-110)
--- NOTE | 2023-10-08 21:12 | P.PN ---
Subjective Progress Note Date: 10/08/23 63-year-old male with a history of metastatic bladder cancer, who presents to the emergency department, on October 02, complaining of shortness of breath, and lower extremity edema. The patient apparently went to his oncologist office, to receive immunotherapy, but apparently was having significant weakness, shortness of breath, and lower extremity edema. He was also found to be anemic and for that reason was scented to the emergency department to be evaluated. The patient was recently hospitalized for similar episode. Currently, he is seen in the emergency department, room 21. The patient is currently on 2 L of oxygen. Saturations are 98%. It appears that he received a blood transfusion. Labs include a white count of 35.8, hemoglobin 6.3, hematocrit 22, and plate, hematocrit 22, and platelet count 427,000 427,000. Sodium 133, potassium 4.4, chlorides 103, CO2 22, BUN 21, and creatinine 0.65. Chest x-ray is consistent with perihilar infiltrates. The patient is seen today October 05, 2023 in follow-up on the regular medical floor. He is currently resting comfortably in bed. Awake and alert in no acute distress. Maintaining O2 saturations in the 90s on 2 L/min per nasal cannula. No IV fluids. He is status post 1 unit of packed red blood cells this admission. Hemoglobin 7.9. White count 44.2. Platelets 446. Sodium 134. Potassium 4.7. Bicarb 17. BUN 22. Creatinine 0.6. Glucose 117. He remains on DuoNeb inhalations, Symbicort, Solu-Medrol. Antibiotics in the form of ceftriaxone and azithromycin. The patient is seen today October 06, 2023 in follow-up on the regular medical floor. He is awake and alert in no acute distress. Sitting up in bed. Having a breathing treatment. Doing better today compared to yesterday. He is maintaining O2 saturations in the 90s on 2 L/min per nasal cannula. He remains on Rocephin, completed azithromycin. His procalcitonin was 3.27. He remains on DuoNeb ventilations, Symbicort. Anticoagulated with Eliquis. Glucose 99. Labs are pending. The patient is seen today October 07, 2023 in follow-up on the regular medical floor. He is currently resting comfortably in bed. Awake and alert in no acute distress. Maintaining good O2 saturations in the 90s on 2 L/min per nasal cannula. He remains on DuoNeb inhalations, Symbicort. He is anticoagulated with Eliquis. He remains on antibiotics in the form of ceftriaxone. He received 1 unit of packed red blood cells this admission. Most recent hemoglobin 8.3. Glucose 102. On today's evaluation of 10/08/2023, patient is being seen for a follow-up. Patient is calm and comfortable. He is quite cachectic with a body mass index of 18.2 as the patient has metastatic bladder cancer with pulmonary skeletal and hepatic metastases. Please refer to the previous PET scan and the patient was done on 08/11/2023 that showed evidence of multiple foci and metastatic lesions including pulmonary nodules, mediastinal and hilar lymphadenopathy, right neck lymphadenopathy, left pelvic lymphadenopathy and hepatic metastases and bony metastases. Patient has a percutaneous nephrostomy tube on his left. The chest x-ray from yesterday shows COPD and multiple bilateral pulmonary nodules consistent with metastatic disease. The patient's white cell count is at 46.9 with a hemoglobin of 8 and a platelet count of 280. Sodium is at 129, potassium is at 3.9, BUN is 23 with a creatinine of 0.5. The lactic acid level has dropped down to 2.0 and the patient's alkaline phosphatase is elevated with normal AST and ALT. Procalcitonin level is at 3.2 suggestive of an underlying bacterial infection. The sputum sample was positive for Irene albicans. Blood cultures are still negative for now. The patient's UA showed 23 WBCs, 2 RBCs. The patient is currently on Omnicef 300 mg p.o. twice a day. The patient's echocardiogram that was done on 06/07/2023 showed essentially normal LV function without any significant valvular abnormalities. Urine culture from 08/19/2023 was positive for Klebsiella resistant only to ampicillin. Infectious disease on the case. He is currently on 2 L of O2 nasal cannula with a pulse ox of 98%. Oncology is on the case. Receiving IV iron for an underlying iron deficiency. In terms of bladder cancer therapy, the patient on immunotherapy with Keytruda/Padcev Objective - Vital Signs Vital signs: Vital Signs Temp 97.9 F 10/08/23 11:52 Pulse 64 10/08/23 11:52 Resp 18 10/08/23 11:52 BP 100/63 10/08/23 11:52 Pulse Ox 98 10/08/23 11:52 FiO2 Intake & Output 10/07/23 10/08/23 10/08/23 18:59 06:59 18:59 Intake Total 1496 360 Output Total 100 Balance 1496 -100 360 Weight 62.596 kg Intake: Oral 1496 360 Output: Urine 100 - Exam GENERAL EXAM: Alert, thin, cachectic 63-year-old male, resting in bed, on 2 L nasal cannula, in no apparent distress. HEAD: Normocephalic. EYES: Normal reaction of pupils, equal size. NOSE: Clear with pink turbinates. THROAT: No erythema or exudates. NECK: No masses, no JVD. CHEST: No chest wall deformity. LUNGS: Equal air entry with no crackles, wheeze, rhonchi or dullness. CVS: S1 and S2 normal with no audible murmur, regular rhythm. ABDOMEN: No hepatosplenomegaly, normal bowel sounds, no guarding or rigidity. SPINE: No scoliosis or deformity SKIN: No rashes CENTRAL NERVOUS SYSTEM: No focal deficits, tone is normal in all 4 extremities. EXTREMITIES: There is no peripheral edema. No clubbing, no cyanosis. Peripheral pulses are intact. - Labs CBC & Chem 7: 10/08/23 06:56 10/08/23 06:56 Labs: Abnormal Lab Results - Last 24 Hours (Table) 10/07/23 10/08/23 10/08/23 Range/Units 20:09 06:56 06:56 WBC 46.9 H (3.8-10.6) k/uL RBC 3.35 L (4.30-5.90) m/uL Hgb 8.0 L (13.0-17.5) gm/dL Hct 27.2 L (39.0-53.0) % MCH 23.9 L (25.0-35.0) pg MCHC 29.4 L (31.0-37.0) g/dL RDW 18.7 H (11.5-15.5) % Neutrophils # 42.4 H (1.3-7.7) k/uL Lymphocytes # 0.4 L (1.0-4.8) k/uL Monocytes # 2.4 H (0-1.0) k/uL Basophils # 0.6 H (0-0.2) k/uL Sodium 129 L (137-145) mmol/L Carbon Dioxide 21 L (22-30) mmol/L BUN 22 H (9-20) mg/dL Creatinine 0.53 L (0.66-1.25) mg/dL POC Glucose (mg/dL) 158 H (70-110) mg/dL Calcium 8.1 L (8.4-10.2) mg/dL Microbiology - Last 24 Hours (Table) 10/03/23 19:33 Blood Culture - Preliminary Blood 10/03/23 19:57 Blood Culture - Preliminary Blood 10/05/23 15:31 Gram Stain - Final Sputum Sputum Culture - Final Irene albicans Assessment and Plan Plan: Metastatic bladder cancer with pulmonary metastases, mediastinal metastases, hepatic metastasis and skeletal metastases maintained on immunotherapy and a combination of Keytruda/Padcev. Oncologist on the case. Left sided nephrostomy tube Previous urine tract infection with Klebsiella Generalized weakness Acute on top of chronic anemia the patient received a unit of packed RBC during this current admission Acute leukocytosis with elevated procalcitonin level, severe initially with a combination of Rocephin and Zithromax. Subsequently switched to Omnicef. Cul tures are negative. Sputum sample was positive for Irene albicans. No clear indication for pneumonia at this point in time. Look for an alternative source of infection. Highly suspicious for infection of urinary source. History of atrial fibrillation, anticoagulated with Eliquis History of COPD Prior history of tobacco use Cachectic, body mass index 18.2 kg/m Plan: Stable and on 2 L nasal cannula Pulmonary status is stable Continue Omnicef Repeat procalcitonin level Monitor hemoglobin Oncology on the case regarding the patient's metastatic bladder cancer Continue anticoagulation with Eliquis Will continue to follow.
[2023-10-09 05:52] LABS: Glucose,Whole Blood 110 mg/dL (70-110)
--- NOTE | 2023-10-09 06:44 | P.PN ---
Subjective Progress Note Date: 10/08/23 This is a 64-year-old male who presents increased shortness of breath with cough with concerns of acute COPD exacerbation bilateral pneumonia being closely monitored with multiple medical consultations. Patient developed tachycardia and possible atrial fibrillation with RVR and sent over to 3 S. for cardiology evaluation. Patient is continued on antibiotics with infectious disease following and cultures thus far remain negative, sputum showing Irene and will be continued on nystatin swish and swallow. Oncology following as well as patient currently receiving immunotherapy and will discuss further with treatment plan in the outpatient setting. Procalcitonin remains elevated and white count as well likely leukemoid reaction. Patient is afebrile denies worsening shortness of breath although does continue to report cough. Not much of an appetite no reports to tolerating. Continue with supplements as well as encouraging oral intake. Encouraged to increase activity as tolerated and will have PT/OT therapy evaluate the patient. Review of systems: Constitutional: No reports of fatigue, fever, or chills Cardiovascular: No reports of chest pain or palpitations Respiratory: No reports of worsening shortness of breath, occasional cough GI: No reports of nausea, no reports of vomiting, reports not much of an appetite : No reports of dysuria or retention, has chronic nephrostomy tube Neurovascular: reports of generalized weakness All medications have been reviewed PHYSICAL EXAMINATION: GENERAL: The patient is alert and oriented x4, Well developed, thin built, cachectic, significant muscle wasting noted, ill-appearing, elderly appearing. HEENT: Pupils are round and equally reacting to light. EOMI. no scleral icterus. No conjunctival pallor. Normocephalic, atraumatic. No pharyngeal erythema. No thyromegaly. CARDIOVASCULAR: S1 and S2 muffled, irregular PULMONARY: diminished breath sounds bilaterally with no wheezing or rhonchi noted. ABDOMEN: soft. Nontender on exam. Thin, scaphoid, cachectic. non-distended, normoactive bowel sounds. No palpable organomegaly. MUSCULOSKELETAL: No joint swelling or deformity. EXTREMITIES: No cyanosis, clubbing, or pedal edema. Significant muscle wasting noted on upper and lower extremities, clavicle, facial NEUROLOGICAL: Gross neurological examination did not reveal any focal deficits. Diffuse weakness SKIN: No rashes. Assessment: Chronic obstructive pulmonary disease, acute exacerbation with concerns of acute bilateral pneumonia, consider gram-negative Atrial fibrillation with RVR severe anemia, microcytic, symptomatic, possibly secondary to malignancy increased WBC, leukemoid reaction History of metastatic bladder cancer with lung and osseous metastatic disease Severe protein calorie malnutrition with a BMI of 18.3 GI prophylaxis DVT prophylaxis Full code Plan: Recommend to continue with current medications and management with multiple medical consultations following including cardiology, pulmonary, infectious disease, and oncology. Patient to continue on antibiotics with infectious disease following and blood cultures thus far remain negative. Sputum culture showing Riene and patient will continue on nystatin Adjusting medications per cardiology for rate control Recommend repeat labs and transfuse if 7 or less. Recommend PT/OT therapy evaluation for possible ECF as patient has weakness. Patient does have a caregiver been encouraged to increase activity as tolerated Will discuss with other consultations regarding discharge planning. Possible discharge in the next 24 to 48 hours Medical issues, overall prognosis is extremely guarded at this time The impression and plan of care has been dictated by Jaimie Mesa, nurse practitioner as directed. Dr. Elton MD I have performed a history and examination and MDM of this patient, discussed the same with the dictator, and agree with the dictator's assessment and plan as written ,documented as a scribe. Based on total visit time, I have performed more than 50% of the visit. Any additional findings or plans will be noted. Objective - Vital Signs Vital signs: Vital Signs Temp 97.9 F 10/08/23 11:52 Pulse 64 10/08/23 11:52 Resp 18 10/08/23 11:52 BP 100/63 10/08/23 11:52 Pulse Ox 98 10/08/23 11:52 FiO2 Intake & Output 10/07/23 10/08/23 10/08/23 18:59 06:59 18:59 Intake Total 1496 360 Output Total 100 Balance 1496 -100 360 Intake: Oral 1496 360 Output: Urine 100 - Labs CBC & Chem 7: 10/08/23 06:56 10/08/23 06:56 Labs: Abnormal Lab Results - Last 24 Hours (Table) 10/07/23 10/07/23 10/08/23 Range/Units 12:23 20:09 06:56 WBC 46.9 H (3.8-10.6) k/uL RBC 3.35 L (4.30-5.90) m/uL Hgb 8.0 L (13.0-17.5) gm/dL Hct 27.2 L (39.0-53.0) % MCH 23.9 L (25.0-35.0) pg MCHC 29.4 L (31.0-37.0) g/dL RDW 18.7 H (11.5-15.5) % Sodium (137-145) mmol/L Carbon Dioxide (22-30) mmol/L BUN (9-20) mg/dL Creatinine (0.66-1.25) mg/dL POC Glucose (mg/dL) 136 H 158 H (70-110) mg/dL Calcium (8.4-10.2) mg/dL 10/08/23 Range/Units 06:56 WBC (3.8-10.6) k/uL RBC (4.30-5.90) m/uL Hgb (13.0-17.5) gm/dL Hct (39.0-53.0) % MCH (25.0-35.0) pg MCHC (31.0-37.0) g/dL RDW (11.5-15.5) % Sodium 129 L (137-145) mmol/L Carbon Dioxide 21 L (22-30) mmol/L BUN 22 H (9-20) mg/dL Creatinine 0.53 L (0.66-1.25) mg/dL POC Glucose (mg/dL) (70-110) mg/dL Calcium 8.1 L (8.4-10.2) mg/dL Microbiology - Last 24 Hours (Table) 10/03/23 19:57 Blood Culture - Preliminary Blood 10/05/23 15:31 Gram Stain - Final Sputum Sputum Culture - Final Irene albicans 10/03/23 19:33 Blood Culture - Preliminary Blood
[2023-10-09 10:05] LABS: Anisocytosis Slight; Basophils % (A) 0 %; Eosinophils # (A) 0.4 k/uL (0-0.7); Eosinophils % (A) 1 %; HCT 29.4 % (39.0-53.0); Hypochromasia Marked; Lymphocytes # (A) 0.7 k/uL (1.0-4.8); Lymphocytes % (A) 2 %; MCH 22.4 pg (25.0-35.0); MCHC 27.3 g/dL (31.0-37.0); Mean Platelet Volume 9.2; Microcytosis Slight; Monocytes # (A) 1.5 k/uL (0-1.0); Monocytes % (A) 4 %; Neutrophils # (A) 30.1 k/uL (1.3-7.7); Neutrophils % (A) 91 %; Platelet Count 327 k/uL (150-450); RBC 3.58 m/uL (4.30-5.90); RDW 19.2 % (11.5-15.5); WBC 32.9 k/uL (3.8-10.6)
[2023-10-09 10:08] VITALS: RESP 18
[2023-10-09 10:29] LABS: ALT 20 U/L (4-49); AST 29 U/L (17-59); African American GFR (CKD) >90 (>60 ml/min/1.73 sqM); Albumin 2.3 g/dL (3.5-5.0); Alkaline Phosphatase 493 U/L (38-126); Anion Gap 9 mmol/L; Blood Urea Nitrogen 22 mg/dL (9-20); Calcium 8.4 mg/dL (8.4-10.2); Carbon Dioxide 21 mmol/L (22-30); Chloride 101 mmol/L (98-107); Glucose 104 mg/dL (74-99); Magnesium 1.8 mg/dL (1.6-2.3); Non-African American GFR(CKD) >90 (>60 ml/min/1.73 sqM); Potassium 4.2 mmol/L (3.5-5.1); Sodium 131 mmol/L (137-145); Total Bilirubin 1.4 mg/dL (0.2-1.3); Total Protein 4.8 g/dL (6.3-8.2)
[2023-10-09 11:53] LABS: Glucose,Whole Blood 93 mg/dL (70-110)
[2023-10-09 13:48] LABS: Poikilocytosis (M) Present
--- NOTE | 2023-10-09 14:51 | P.PN ---
Subjective Progress Note Date: 10/09/23 63-year-old male with a history of metastatic bladder cancer, who presents to the emergency department, on October 02, complaining of shortness of breath, and lower extremity edema. The patient apparently went to his oncologist office, to receive immunotherapy, but apparently was having significant weakness, shortness of breath, and lower extremity edema. He was also found to be anemic and for that reason was scented to the emergency department to be evaluated. The patient was recently hospitalized for similar episode. Currently, he is seen in the emergency department, room 21. The patient is currently on 2 L of oxygen. Saturations are 98%. It appears that he received a blood transfusion. Labs include a white count of 35.8, hemoglobin 6.3, hematocrit 22, and plate, hematocrit 22, and platelet count 427,000 427,000. Sodium 133, potassium 4.4, chlorides 103, CO2 22, BUN 21, and creatinine 0.65. Chest x-ray is consistent with perihilar infiltrates. The patient is seen today October 05, 2023 in follow-up on the regular medical floor. He is currently resting comfortably in bed. Awake and alert in no acute distress. Maintaining O2 saturations in the 90s on 2 L/min per nasal cannula. No IV fluids. He is status post 1 unit of packed red blood cells this admission. Hemoglobin 7.9. White count 44.2. Platelets 446. Sodium 134. Potassium 4.7. Bicarb 17. BUN 22. Creatinine 0.6. Glucose 117. He remains on DuoNeb inhalations, Symbicort, Solu-Medrol. Antibiotics in the form of ceftriaxone and azithromycin. The patient is seen today October 06, 2023 in follow-up on the regular medical floor. He is awake and alert in no acute distress. Sitting up in bed. Having a breathing treatment. Doing better today compared to yesterday. He is maintaining O2 saturations in the 90s on 2 L/min per nasal cannula. He remains on Rocephin, completed azithromycin. His procalcitonin was 3.27. He remains on DuoNeb ventilations, Symbicort. Anticoagulated with Eliquis. Glucose 99. Labs are pending. The patient is seen today October 07, 2023 in follow-up on the regular medical floor. He is currently resting comfortably in bed. Awake and alert in no acute distress. Maintaining good O2 saturations in the 90s on 2 L/min per nasal cannula. He remains on DuoNeb inhalations, Symbicort. He is anticoagulated with Eliquis. He remains on antibiotics in the form of ceftriaxone. He received 1 unit of packed red blood cells this admission. Most recent hemoglobin 8.3. Glucose 102. On today's evaluation of 10/08/2023, patient is being seen for a follow-up. Patient is calm and comfortable. He is quite cachectic with a body mass index of 18.2 as the patient has metastatic bladder cancer with pulmonary skeletal and hepatic metastases. Please refer to the previous PET scan and the patient was done on 08/11/2023 that showed evidence of multiple foci and metastatic lesions including pulmonary nodules, mediastinal and hilar lymphadenopathy, right neck lymphadenopathy, left pelvic lymphadenopathy and hepatic metastases and bony metastases. Patient has a percutaneous nephrostomy tube on his left. The chest x-ray from yesterday shows COPD and multiple bilateral pulmonary nodules consistent with metastatic disease. The patient's white cell count is at 46.9 with a hemoglobin of 8 and a platelet count of 280. Sodium is at 129, potassium is at 3.9, BUN is 23 with a creatinine of 0.5. The lactic acid level has dropped down to 2.0 and the patient's alkaline phosphatase is elevated with normal AST and ALT. Procalcitonin level is at 3.2 suggestive of an underlying bacterial infection. The sputum sample was positive for Irene albicans. Blood cultures are still negative for now. The patient's UA showed 23 WBCs, 2 RBCs. The patient is currently on Omnicef 300 mg p.o. twice a day. The patient's echocardiogram that was done on 06/07/2023 showed essentially normal LV function without any significant valvular abnormalities. Urine culture from 08/19/2023 was positive for Klebsiella resistant only to ampicillin. Infectious disease on the case. He is currently on 2 L of O2 nasal cannula with a pulse ox of 98%. Oncology is on the case. Receiving IV iron for an underlying iron deficiency. In terms of bladder cancer therapy, the patient on immunotherapy with Keytruda/Padcev 72,[id number], the patient is being seen for a follow-up. Patient is, counseled with and he remains on room air oxygen with a pulse ox above 90%. No cough or sputum production. No chest tightness or wheezing. Nevertheless, his white cell count is still elevated although improved compared to yesterday. The white cell count today is at 32.9. Hemoglobin is at 8. The exact source of infection is not clear to me at this point although suspect underlying urine tract infection. I repeated the patient's procalcitonin level and the level is still elevated at 3.5 compared to 3.2 at time of admission. Patient is currently on Omnicef. Sputum sample was positive for Irene albicans probably colonizer. Remains on Symbicort. Remains on DuoNeb updrafts. ID is on the case. Overall, the patient is feeling well. He is afebrile. No hypotension. Does not look to be toxic. Objective - Vital Signs Vital signs: Vital Signs Temp 97.5 F L 10/09/23 08:00 Pulse 80 10/09/23 08:00 Resp 18 10/09/23 08:00 BP 108/69 10/09/23 08:00 Pulse Ox 98 10/09/23 08:00 FiO2 Intake & Output 10/08/23 10/09/23 10/09/23 18:59 06:59 18:59 Intake Total 360 118 358 Output Total 0 350 Balance 360 -232 358 Weight 62.596 kg 63 kg Intake: Oral 360 118 358 Output: Urine 0 350 - Exam GENERAL EXAM: Alert, thin, cachectic 63-year-old male, resting in bed, on 2 L nasal cannula, in no apparent distress. HEAD: Normocephalic. EYES: Normal reaction of pupils, equal size. NOSE: Clear with pink turbinates. THROAT: No erythema or exudates. NECK: No masses, no JVD. CHEST: No chest wall deformity. LUNGS: Equal air entry with no crackles, wheeze, rhonchi or dullness. CVS: S1 and S2 normal with no audible murmur, regular rhythm. ABDOMEN: No hepatosplenomegaly, normal bowel sounds, no guarding or rigidity. SPINE: No scoliosis or deformity SKIN: No rashes CENTRAL NERVOUS SYSTEM: No focal deficits, tone is normal in all 4 extremities. EXTREMITIES: There is no peripheral edema. No clubbing, no cyanosis. Peripheral pulses are intact. - Labs CBC & Chem 7: 10/09/23 09:27 10/09/23 09:27 Labs: Abnormal Lab Results - Last 24 Hours (Table) 10/08/23 10/08/23 10/08/23 Range/Units 06:56 06:56 20:07 WBC (3.8-10.6) k/uL RBC (4.30-5.90) m/uL Hgb (13.0-17.5) gm/dL Hct (39.0-53.0) % MCH (25.0-35.0) pg MCHC (31.0-37.0) g/dL RDW (11.5-15.5) % Neutrophils # 42.4 H (1.3-7.7) k/uL Lymphocytes # 0.4 L (1.0-4.8) k/uL Monocytes # 2.4 H (0-1.0) k/uL Basophils # 0.6 H (0-0.2) k/uL Sodium (137-145) mmol/L Carbon Dioxide (22-30) mmol/L BUN (9-20) mg/dL Creatinine (0.66-1.25) mg/dL Glucose (74-99) mg/dL POC Glucose (mg/dL) 128 H (70-110) mg/dL Total Bilirubin (0.2-1.3) mg/dL Alkaline Phosphatase (38-126) U/L Total Protein (6.3-8.2) g/dL Albumin (3.5-5.0) g/dL Procalcitonin 3.55 H (0.02-0.09) ng/mL 10/09/23 10/09/23 Range/Units 09:27 09:27 WBC 32.9 H (3.8-10.6) k/uL RBC 3.58 L (4.30-5.90) m/uL Hgb 8.0 L (13.0-17.5) gm/dL Hct 29.4 L (39.0-53.0) % MCH 22.4 L (25.0-35.0) pg MCHC 27.3 L (31.0-37.0) g/dL RDW 19.2 H (11.5-15.5) % Neutrophils # (1.3-7.7) k/uL Lymphocytes # (1.0-4.8) k/uL Monocytes # (0-1.0) k/uL Basophils # (0-0.2) k/uL Sodium 131 L (137-145) mmol/L Carbon Dioxide 21 L (22-30) mmol/L BUN 22 H (9-20) mg/dL Creatinine 0.55 L (0.66-1.25) mg/dL Glucose 104 H (74-99) mg/dL POC Glucose (mg/dL) (70-110) mg/dL Total Bilirubin 1.4 H (0.2-1.3) mg/dL Alkaline Phosphatase 493 H (38-126) U/L Total Protein 4.8 L (6.3-8.2) g/dL Albumin 2.3 L (3.5-5.0) g/dL Procalcitonin (0.02-0.09) ng/mL Microbiology - Last 24 Hours (Table) 10/03/23 19:33 Blood Culture - Preliminary Blood Assessment and Plan Plan: Metastatic bladder cancer with pulmonary metastases, mediastinal metastases, h epatic metastasis and skeletal metastases maintained on immunotherapy and a combination of Keytruda/Padcev. Oncologist on the case. Left sided nephrostomy tube Previous urine tract infection with Klebsiella Generalized weakness Acute on top of chronic anemia the patient received a unit of packed RBC during this current admission Acute leukocytosis with elevated procalcitonin level, severe initially with a combination of Rocephin and Zithromax. Subsequently switched to Omnicef. Cultures are negative. Sputum sample was positive for Irene albicans. No clear indication for pneumonia at this point in time. Look for an alternative source of infection. Highly suspicious for infection of urinary source. The repeat procalcitonin level is still elevated and the white cell count is still elevated although somewhat improved compared to yesterday. History of atrial fibrillation, anticoagulated with Eliquis History of COPD Prior history of tobacco use Cachectic, body mass index 18.2 kg/m Plan: Stable and on 2 L nasal cannula, this has been transitioned to room air oxygen. Pulmonary status is stable Continue Omnicef Repeat procalcitonin level shows that the level is still elevated and the white cell count is still elevated although somewhat improved compared to yesterday. Suspect underlying bacterial infection. ID is on the case. Monitor hemoglobin Oncology on the case regarding the patient's metastatic bladder cancer Continue anticoagulation with Eliquis Will continue to follow.
--- NOTE | 2023-10-09 15:40 | P.PN ---
Subjective Progress Note Date: 10/08/23 Principal diagnosis: Reason for follow-up is leukocytosis/pneumonia Patient is a 63-year-old male with a past medical history significant for metastatic bladder cancer on chemo COPD atrial fibrillation on immunotherapy sent to the hospital concerning for abnormal lab and patient complaining of weakness. On today's evaluation that is 10/08/2023, patient has been afebrile, patient is breathing comfortably and is currently on 2 L current oxygen, patient denies having any significant cough no chest pain shortness of breath, patient denies nausea vomiting or diarrhea and no abdominal pain, mention feeling slightly better. Patient white count is 46.9, creatinine 0.53, sputum with Irene blood culture has been negative Objective - Vital Signs Vital signs: Vital Signs Temp 97.5 F L 10/08/23 16:00 Pulse 74 10/08/23 16:00 Resp 17 10/08/23 16:00 BP 110/68 10/08/23 16:00 Pulse Ox 98 10/08/23 16:00 FiO2 Intake & Output 10/07/23 10/08/23 10/08/23 18:59 06:59 18:59 Intake Total 1496 360 Output Total 100 Balance 1496 -100 360 Weight 62.596 kg Intake: Oral 1496 360 Output: Urine 100 - Exam GENERAL DESCRIPTION: Middle-age male lying in bed in no distress RESPIRATORY SYSTEM: Unlabored breathing , decreased breath sounds at bases HEART: S1 S2 regular rate and rhythm , ABDOMEN: Soft , no tenderness EXTREMITIES: No edema feet - Labs CBC & Chem 7: 10/09/23 09:27 10/09/23 09:27 Labs: Abnormal Lab Results - Last 24 Hours (Table) 10/07/23 10/08/23 10/08/23 Range/Units 20:09 06:56 06:56 WBC 46.9 H (3.8-10.6) k/uL RBC 3.35 L (4.30-5.90) m/uL Hgb 8.0 L (13.0-17.5) gm/dL Hct 27.2 L (39.0-53.0) % MCH 23.9 L (25.0-35.0) pg MCHC 29.4 L (31.0-37.0) g/dL RDW 18.7 H (11.5-15.5) % Neutrophils # 42.4 H (1.3-7.7) k/uL Lymphocytes # 0.4 L (1.0-4.8) k/uL Monocytes # 2.4 H (0-1.0) k/uL Basophils # 0.6 H (0-0.2) k/uL Sodium 129 L (137-145) mmol/L Carbon Dioxide 21 L (22-30) mmol/L BUN 22 H (9-20) mg/dL Creatinine 0.53 L (0.66-1.25) mg/dL POC Glucose (mg/dL) 158 H (70-110) mg/dL Calcium 8.1 L (8.4-10.2) mg/dL Microbiology - Last 24 Hours (Table) 10/03/23 19:33 Blood Culture - Preliminary Blood 10/03/23 19:57 Blood Culture - Preliminary Blood 10/05/23 15:31 Gram Stain - Final Sputum Sputum Culture - Final Irene albicans Assessment and Plan (1) Leukocytosis Current Visit: Yes Status: Acute Priority: Medium Code(s): D72.829 - ELEVATED WHITE BLOOD CELL COUNT, UNSPECIFIED SNOMED Code(s): 159992962 (2) Pneumonia Current Visit: Yes Status: Acute Priority: High Code(s): J18.9 - PNEUMONIA, UNSPECIFIED ORGANISM SNOMED Code(s): 127446723 Plan: 1patient presented to hospital with weakness he does have some shortness of breath and cough patient did have elevated white count elevated lactic acid chest x-ray with left basilar infiltrate question of pneumonia not entirely excluded 2-blood transfusion culture currently pending patient did have procalcitonin level 3.27 3-patient has received 4 doses of Rocephin 3 doses of Zithromax, patient to continue with the Omnicef along with the nystatin swish and swallow and monitor clinical course closely Dictation was produced using [employer] dictation software. please excuse any grammatical, word or spelling errors. Time with Patient: Less than 30
--- NOTE | 2023-10-09 15:41 | P.PN ---
Subjective Progress Note Date: 10/09/23 Principal diagnosis: Reason for follow-up is leukocytosis/pneumonia Patient is a 63-year-old male with a past medical history significant for metastatic bladder cancer on chemo COPD atrial fibrillation on immunotherapy sent to the hospital concerning for abnormal lab and patient complaining of weakness. On today's evaluation that is 10/09/2023, Patient is afebrile this morning and denies any chills, patient mention breathing comfortably and is currently on 2 L current oxygen patient denies any chest pain occasional cough but not bring up any sputum patient denies any abdominal pain no diarrhea no nausea no vomiting, no new symptoms. Patient white count is down to 32.9 creatinine 0.55 blood culture negative sputum with Irene Objective - Vital Signs Vital signs: Vital Signs Temp 97.5 F L 10/09/23 08:00 Pulse 80 10/09/23 08:00 Resp 18 10/09/23 08:00 BP 108/69 10/09/23 08:00 Pulse Ox 98 10/09/23 08:00 FiO2 Intake & Output 10/08/23 10/09/23 10/09/23 18:59 06:59 18:59 Intake Total 360 118 358 Output Total 0 350 Balance 360 -232 358 Weight 62.596 kg 63 kg Intake: Oral 360 118 358 Output: Urine 0 350 - Exam GENERAL DESCRIPTION: Middle-age male lying in bed in no distress RESPIRATORY SYSTEM: Unlabored breathing , decreased breath sounds at bases HEART: S1 S2 regular rate and rhythm , ABDOMEN: Soft , no tenderness EXTREMITIES: No edema feet - Labs CBC & Chem 7: 10/09/23 09:27 10/09/23 09:27 Labs: Abnormal Lab Results - Last 24 Hours (Table) 10/08/23 10/08/23 10/08/23 Range/Units 06:56 06:56 20:07 WBC (3.8-10.6) k/uL RBC (4.30-5.90) m/uL Hgb (13.0-17.5) gm/dL Hct (39.0-53.0) % MCH (25.0-35.0) pg MCHC (31.0-37.0) g/dL RDW (11.5-15.5) % Neutrophils # 42.4 H (1.3-7.7) k/uL Lymphocytes # 0.4 L (1.0-4.8) k/uL Monocytes # 2.4 H (0-1.0) k/uL Basophils # 0.6 H (0-0.2) k/uL Sodium (137-145) mmol/L Carbon Dioxide (22-30) mmol/L BUN (9-20) mg/dL Creatinine (0.66-1.25) mg/dL Glucose (74-99) mg/dL POC Glucose (mg/dL) 128 H (70-110) mg/dL Total Bilirubin (0.2-1.3) mg/dL Alkaline Phosphatase (38-126) U/L Total Protein (6.3-8.2) g/dL Albumin (3.5-5.0) g/dL Procalcitonin 3.55 H (0.02-0.09) ng/mL 10/09/23 10/09/23 Range/Units 09:27 09:27 WBC 32.9 H (3.8-10.6) k/uL RBC 3.58 L (4.30-5.90) m/uL Hgb 8.0 L (13.0-17.5) gm/dL Hct 29.4 L (39.0-53.0) % MCH 22.4 L (25.0-35.0) pg MCHC 27.3 L (31.0-37.0) g/dL RDW 19.2 H (11.5-15.5) % Neutrophils # (1.3-7.7) k/uL Lymphocytes # (1.0-4.8) k/uL Monocytes # (0-1.0) k/uL Basophils # (0-0.2) k/uL Sodium 131 L (137-145) mmol/L Carbon Dioxide 21 L (22-30) mmol/L BUN 22 H (9-20) mg/dL Creatinine 0.55 L (0.66-1.25) mg/dL Glucose 104 H (74-99) mg/dL POC Glucose (mg/dL) (70-110) mg/dL Total Bilirubin 1.4 H (0.2-1.3) mg/dL Alkaline Phosphatase 493 H (38-126) U/L Total Protein 4.8 L (6.3-8.2) g/dL Albumin 2.3 L (3.5-5.0) g/dL Procalcitonin (0.02-0.09) ng/mL Microbiology - Last 24 Hours (Table) 10/03/23 19:33 Blood Culture - Preliminary Blood Assessment and Plan (1) Leukocytosis Current Visit: Yes Status: Acute Priority: Medium Code(s): D72.829 - ELEVATED WHITE BLOOD CELL COUNT, UNSPECIFIED SNOMED Code(s): 160050468 (2) Pneumonia Current Visit: Yes Status: Acute Priority: High Code(s): J18.9 - PNEUMONIA, UNSPECIFIED ORGANISM SNOMED Code(s): 232334445 Plan: 1patient presented to hospital with weakness he does have some shortness of breath and cough patient did have elevated white count elevated lactic acid chest x-ray with left basilar infiltrate question of pneumonia not entirely excluded 2-blood transfusion culture currently pending patient did have procalcitonin level 3.27 3-patient has shown clinical improvement sputum has been negative for resistant pathogen blood culture negative patient continue with the Omnicef x5 days on discharge along with the nystatin swish and swallow x 7 to 10 days on discharge Dictation was produced using [employer] dictation software. please excuse any grammatical, word or spelling errors. Time with Patient: Less than 30
[2023-10-09 16:25] LABS: Glucose,Whole Blood 121 mg/dL (70-110)
--- NOTE | 2023-10-09 17:33 | P.PN ---
Subjective Progress Note Date: 10/09/23 Principal diagnosis: Metastatic bladder carcinoma. Acute resp infection In f/u pt reports he is feeling ok, cough is a little better, secretions cont to be thick. No fevers, pain is managed. He is tolerating some intake-nothing tastes the way it should Objective - Vital Signs Vital signs: Vital Signs Temp 97.5 F L 10/09/23 08:00 Pulse 74 10/09/23 14:00 Resp 18 10/09/23 14:00 BP 92/50 10/09/23 12:00 Pulse Ox 100 10/09/23 12:00 FiO2 Intake & Output 10/08/23 10/09/23 10/09/23 18:59 06:59 18:59 Intake Total 360 118 358 Output Total 0 350 250 Balance 360 -232 108 Weight 62.596 kg 63 kg Intake: Oral 360 118 358 Output: Urine 0 350 Stool 250 - Constitutional General appearance: Present: cooperative, no acute distress, thin - EENT Eyes: Present: anicteric sclerae, EOMI ENT: Present: hearing grossly normal - Respiratory Details: resp unlabored at rest - Peripheral edema foot Peripheral Edema: bilateral: 1+ - Neurologic Neurologic: Present: CNII-XII intact - Musculoskeletal Musculoskeletal: Present: generalized weakness, strength equal bilaterally - Psychiatric Psychiatric: Present: A&O x's 3, appropriate affect, intact judgment & insight - Labs CBC & Chem 7: 10/09/23 09:27 10/09/23 09:27 Labs: Abnormal Lab Results - Last 24 Hours (Table) 10/08/23 10/08/23 10/09/23 Range/Units 06:56 20:07 09:27 WBC 32.9 H (3.8-10.6) k/uL RBC 3.58 L (4.30-5.90) m/uL Hgb 8.0 L (13.0-17.5) gm/dL Hct 29.4 L (39.0-53.0) % MCH 22.4 L (25.0-35.0) pg MCHC 27.3 L (31.0-37.0) g/dL RDW 19.2 H (11.5-15.5) % Neutrophils # 30.1 H (1.3-7.7) k/uL Lymphocytes # 0.7 L (1.0-4.8) k/uL Monocytes # 1.5 H (0-1.0) k/uL Sodium (137-145) mmol/L Carbon Dioxide (22-30) mmol/L BUN (9-20) mg/dL Creatinine (0.66-1.25) mg/dL Glucose (74-99) mg/dL POC Glucose (mg/dL) 128 H (70-110) mg/dL Total Bilirubin (0.2-1.3) mg/dL Alkaline Phosphatase (38-126) U/L Total Protein (6.3-8.2) g/dL Albumin (3.5-5.0) g/dL Procalcitonin 3.55 H (0.02-0.09) ng/mL 10/09/23 10/09/23 Range/Units 09:27 16:23 WBC (3.8-10.6) k/uL RBC (4.30-5.90) m/uL Hgb (13.0-17.5) gm/dL Hct (39.0-53.0) % MCH (25.0-35.0) pg MCHC (31.0-37.0) g/dL RDW (11.5-15.5) % Neutrophils # (1.3-7.7) k/uL Lymphocytes # (1.0-4.8) k/uL Monocytes # (0-1.0) k/uL Sodium 131 L (137-145) mmol/L Carbon Dioxide 21 L (22-30) mmol/L BUN 22 H (9-20) mg/dL Creatinine 0.55 L (0.66-1.25) mg/dL Glucose 104 H (74-99) mg/dL POC Glucose (mg/dL) 121 H (70-110) mg/dL Total Bilirubin 1.4 H (0.2-1.3) mg/dL Alkaline Phosphatase 493 H (38-126) U/L Total Protein 4.8 L (6.3-8.2) g/dL Albumin 2.3 L (3.5-5.0) g/dL Procalcitonin (0.02-0.09) ng/mL Microbiology - Last 24 Hours (Table) 10/03/23 19:57 Blood Culture - Final Blood Assessment and Plan (1) Acute exacerbation of chronic obstructive pulmonary disease Current Visit: Yes Status: Acute Priority: High Code(s): J44.1 - CHRONIC OBSTRUCTIVE PULMONARY DISEASE W (ACUTE) EXACERBATION SNOMED Code(s): 088494010 (2) Malignant neoplasm metastatic from bladder Current Visit: Yes Status: Chronic Priority: High Code(s): C67.9 - MALIGNANT NEOPLASM OF BLADDER, UNSPECIFIED SNOMED Code(s): 54058170 (3) Iron deficiency anemia Current Visit: No Status: Chronic Priority: Medium Code(s): D50.9 - IRON DEFICIENCY ANEMIA, UNSPECIFIED SNOMED Code(s): 18210778 Plan: Admit for respiratory insufficiency -Pt denies any significnt resp c/o. Cough better then on admit -Patient was encouraged to continue with respiratory treatments as prescribed. He was encouraged to ask for pain medications if he needed them. -Sputum cultures are positive for fungal infection -Defer treatment of the same to Pulmonary and ID Metastatic bladder carcinoma -Most recent treatment cycle 6, day 1, day 8 held due to to low hemoglobin -Previous suspicions for slight disease progression in liver. Plan was to do 2 additional cycles then repeat PET scan. Treatment, scan and f/u appt had to be adjusted. Pt caregiver will be contacted with all the new appts. Iron deficient anemia -S/P 1 unit of PRBCs for hemoglobin of 6.3 on admit, Hgb stable at 8 today -Parenteral iron in the office, last dose of venofer was 09/12. Ferritin in >5000, no additional iron at this time -No reported bleeding. Treatment effects vs poor nutrition vs disease? -Transfuse for Hgb <7 or if symptomatic
[2023-10-09 17:55] VITALS: BP 115/71; PULSE 70; TEMP 97.6
--- NOTE | 2023-10-10 10:30 | P.DS ---
Providers Date of admission: 10/03/23 20:33 Expected date of discharge: 10/09/23 Attending physician: Barbara Conde Consults: 10/03/23 20:33 Consult Physician Urgent Consulting Provider: Carlos Hankins Consult Reason/Comments: leukocytosis, hx bladder cancer Do you want consulting provider notified?: Yes 10/04/23 13:14 Consult Physician Routine Consulting Provider: Jones Lal Consult Reason/Comments: copd Do you want consulting provider notified?: Yes Consult Physician Routine Consulting Provider: Maria Luisa Aguilar Consult Reason/Comments: sepsis Do you want consulting provider notified?: Yes 10/07/23 10:15 Consult Physician Urgent Consulting Provider: Christ Torres Consult Reason/Comments: AFIB RVR Do you want consulting provider notified?: Yes Primary care physician: Carlos Hankins MD Hospital Course: Final diagnosis Chronic obstructive pulmonary disease, acute exacerbation with concerns of acute bilateral pneumonia, consider gram-negative Atrial fibrillation with RVR severe anemia, microcytic, symptomatic, possibly secondary to malignancy increased WBC, leukemoid reaction History of metastatic bladder cancer with lung and osseous metastatic disease Severe protein calorie malnutrition with a BMI of 18.3 GI prophylaxis DVT prophylaxis Full code Discharge disposition Patient is being discharged in a stable condition with guarded prognosis to home. Patient will follow-up with Dr. hankins in the outpatient setting upon discharge. Patient is to continue with oral antibiotics in the form of Ceftin for the next few days and close outpatient follow-up with urology as scheduled. Patient will be continued on palliative care at home. Total time taken is greater than 35 minutes. Hospital course This is a 63-year-old male who was recently admitted with increasing shortness of breath with generalized weakness being closely monitored. Patient with concerns of possible acute bilateral pneumonia with chronic obstructive pulmonary disease. Patient also with history of A-fib was found to be in atrial fibrillation with RVR and monitored by cardiology. Adjustments to medications made and rate is better controlled recommending outpatient follow-up. Patient continues to have elevated white blood count although is trending down in the 30s today and remains afebrile. Patient will continue on oral Ceftin for the next 5 days to complete the course and close outpatient follow-up with consultations including oncology. Patient is arranged in the outpatient setting for palliative care and does have caregivers at the home. Patient does not want to go to rehab. Please refer to other consultation notes for further HPI. Currently no reports of chest pain, no worsening shortness of breath, or palpitations. Patient is afebrile. No reports of nausea or vomiting and patient is tolerating diet. Patient will be discharged home today. Patient does have palliative care outpatient. Guarded prognosis and high risk for readmissions given patient's significant comorbidities. Physical exam: Gen: This is a 63-year-old male who is awake, alert and oriented x 3, thin built, elderly appearing, ill-appearing, cachectic with significant muscle wasting noted HEENT: Head is atraumatic, normocephalic. Pupils equal, round. Sclerae is anicteric. NECK: Supple. No JVD. No lymphadenopathy. No thyromegaly. LUNGS: Diminished breath sounds bilaterally with some coarse rhonchi. No intercostal retractions. HEART: S1, S2 muffled, irregular ABDOMEN: Soft. Thin, scaphoid bowel sounds are present. No masses. No tenderness. EXTREMITIES: No pedal edema. No calf tenderness. Significant muscle wasting noted of upper and lower extremities including clavicle area chest and facial NEUROLOGICAL: Patient is awake, alert and oriented x3. Cranial nerves 2 through 12 are grossly intact. Diffusely weak Please refer to medication reconciliation sheet for a list of medications. The impression and plan of care has been dictated by Jaimie Mesa, Nurse Practitioner as directed. Dr. Elton MD I have performed a history and examination and MDM of this patient, discussed the same with the dictator, and agree with the dictator's assessment and plan as written ,documented as a scribe. Based on total visit time, I have performed more than 50% of the visit. Patient Condition at Discharge: Fair Plan - Discharge Summary Discharge Rx Participant: No New Discharge Prescriptions: New cefUROXime axetiL [Ceftin] 500 mg PO BID 5 Days #10 tab Ipratropium-Albuterol Nebulize [Duoneb 0.5 mg-3 mg/3 ml Soln] 3 ml INHALATION RT-QID #100 each Nystatin 100,000 Unit/ml Susp [Mycostatin Oral Susp] 500,000 unit PO QID #360 ml Folic Acid 1 mg PO DAILY@1200 #30 tab Metoprolol Tartrate [Lopressor] 75 mg PO TID 30 Days #180 tab Multivitamins, Thera [Multivitamin (formulary)] 1 each PO DAILY@1200 #30 tab Thiamine [Vitamin B-1] 100 mg PO DAILY@1200 #30 tab Continue Ondansetron [Zofran] 4 mg PO Q4H PRN PRN Reason: Nausea Budesonide/Formoterol Fumarate [Symbicort 160-4.5 Mcg Inhaler] 2 puff INHALATION RT-BID PRN PRN Reason: Shortness Of Breath Apixaban [Eliquis] 2.5 mg PO BID Amiodarone [Cordarone] 200 mg PO DAILY Magnesium Hydroxide [Milk of Magnesia] 2,400 mg PO BID PRN ml PRN Reason: Constipation polyethylene glycoL 3350 [Miralax] 17 gm PO DAILY #30 packet Sennosides-Docusate Sodium [Senokot-S] 2 tab PO BID HYDROcodone/APAP 10-325MG [Ebro 10-325] 1 tab PO Q4HR PRN PRN Reason: Pain Ipratropium-Albuterol Nebulize [Duoneb 0.5 mg-3 mg/3 ml Soln] 3 ml INHALATION RT-QID PRN PRN Reason: Shortness Of Breath Albuterol Sulfate [Albuterol Sulfate Hfa] 2 puff INHALATION RT-Q4H PRN PRN Reason: Shortness Of Breath Sucralfate [Carafate] 1 gm PO AC-BID #60 tab Discontinued Metoprolol Tartrate [Lopressor] 50 mg PO TID 30 Days #90 tab Discharge Medication List Ondansetron [Zofran] 4 mg PO Q4H PRN 05/25/23 [History] HYDROcodone/APAP 10-325MG [Ebro 10-325] 1 tab PO Q4HR PRN 06/06/23 [History] Apixaban [Eliquis] 2.5 mg PO BID 07/01/23 [History] Budesonide/Formoterol Fumarate [Symbicort 160-4.5 Mcg Inhaler] 2 puff INHALATION RT-BID PRN 07/01/23 [History] Ipratropium-Albuterol Nebulize [Duoneb 0.5 mg-3 mg/3 ml Soln] 3 ml INHALATION RT-QID PRN 07/01/23 [History] Amiodarone [Cordarone] 200 mg PO DAILY 07/19/23 [History] Albuterol Sulfate [Albuterol Sulfate Hfa] 2 puff INHALATION RT-Q4H PRN 09/17/23 [History] Magnesium Hydroxide [Milk of Magnesia] 2,400 mg PO BID PRN ml 09/24/23 [Rx] Sucralfate [Carafate] 1 gm PO AC-BID #60 tab 09/24/23 [Rx] polyethylene glycoL 3350 [Miralax] 17 gm PO DAILY #30 packet 09/24/23 [Rx] Sennosides-Docusate Sodium [Senokot-S] 2 tab PO BID 10/03/23 [History] Folic Acid 1 mg PO DAILY@1200 #30 tab 10/09/23 [Rx] Ipratropium-Albuterol Nebulize [Duoneb 0.5 mg-3 mg/3 ml Soln] 3 ml INHALATION RT-QID #100 each 10/09/23 [Rx] Metoprolol Tartrate [Lopressor] 75 mg PO TID 30 Days #180 tab 10/09/23 [Rx] Multivitamins, Thera [Multivitamin (formulary)] 1 each PO DAILY@1200 #30 tab 10/09/23 [Rx] Nystatin 100,000 Unit/ml Susp [Mycostatin Oral Susp] 500,000 unit PO QID #360 ml 10/09/23 [Rx] Thiamine [Vitamin B-1] 100 mg PO DAILY@1200 #30 tab 10/09/23 [Rx] cefUROXime axetiL [Ceftin] 500 mg PO BID 5 Days #10 tab 10/09/23 [Rx] Follow up Appointment(s)/Referral(s): Carlos Hankins MD [Primary Care Provider] - 1-2 days (please call office and set up follow up appointment to be seen in 1-2 days) [facility], [NON-STAFF] - 1 Week Ambulatory/Diagnostic Orders: Complete Blood Count w/diff [LAB.AMB] Time Frame: 3 Days, Location: None Selected Patient Instructions/Handouts: Urinary Tract Infection in Men (DC), Type 2 Diabetes in Adults: New Diagnosis (DC) Activity/Diet/Wound Care/Special Instructions: pt has palliative care with [facility] Continue with antibiotics for the next few days Follow-up with oncology outpatient Follow-up primary care provider on discharge Continue Ensure supplements between meals and encouraged oral intake Follow-up urology outpatient Discharge Disposition: HOME SELF-CARE
--- NOTE | 2023-10-10 22:20 | CDI ---
Documentation Clarification Form Date: 10/10/2023 09:57:37 PM From: Latosha Reddy Phone: Admit Date: 10/03/2023 08:33:00 PM Patient Name: Jones Jimenez Visit Number: [id number] Discharge Date: 10/09/2023 07:04:00 PM ATTENTION: The Clinical Documentation Specialists (CDI) and [facility] Coding Staff appreciate your assistance in clarifying documentation. Please respond to the clarification below the line at the bottom and electronically sign. The CDI & [facility] Coding staff will review the response and follow-up if needed. Please note: Queries are made part of the Legal Health Record. If you have any questions, please contact the author of this message via ITS. Dr. Jones Lal Your patient is receiving the following: Patient wears 2 L O2 at all times. Please clarify what condition/diagnosis is being treated. History/Risk Factors: 63yo M, AECOPD, Irene PNA, PAF, anemia, leukemoid reaction, bladder Cx w multi mets, severe PCM Clinical indicators: Respiratory Rate 16- 18 O2 Sat by Pulse 95- 100 Treatment: He is currently on 2 L ofoxygen. What diagnosis are you treating with 2 L ofoxygen? [ ] COPD [ x] Chronic Respiratory Failure [ ] No additional diagnosis [ ] Other, please specify [ ] Unable to determine (Template Last Reviewed: May 2020) MTDD
== END 2023-10-09 19:04 | disposition home or self-care (01) | DRG 137 ==
LOC: EC 16:23 → 5NMEDONC 20:33 → 3SCARD 10-07 11:41
PROVIDERS: ADMIT Hospitalist; ATTEND Hospitalist
PROC: 30233N1 Transfusion of Nonautologous Red Blood Cells into Peripheral Vein, Percutaneous Approach (ICD-10-PCS; principal; 2023-10-04)
DX: B37.1 Pulmonary candidiasis (principal); E43 Unspecified severe protein-calorie malnutrition; C79.51 Secondary malignant neoplasm of bone; C78.01 Secondary malignant neoplasm of right lung; C78.02 Secondary malignant neoplasm of left lung; J96.10 Chronic respiratory failure, unspecified whether with hypoxia or hypercapnia; I49.5 Sick sinus syndrome; C67.2 Malignant neoplasm of lateral wall of bladder; C78.7 Secondary malignant neoplasm of liver and intrahepatic bile duct; J44.0 Chronic obstructive pulmonary disease with (acute) lower respiratory infection; J44.1 Chronic obstructive pulmonary disease with (acute) exacerbation; I48.0 Paroxysmal atrial fibrillation; Z93.6 Other artificial openings of urinary tract status; Z51.5 Encounter for palliative care; E88.A Wasting disease (syndrome) due to underlying condition; E87.1 Hypo-osmolality and hyponatremia; I95.9 Hypotension, unspecified; Z99.81 Dependence on supplemental oxygen; I11.9 Hypertensive heart disease without heart failure; D50.9 Iron deficiency anemia, unspecified; D63.0 Anemia in neoplastic disease; D72.823 Leukemoid reaction; N39.0 Urinary tract infection, site not specified; N40.0 Benign prostatic hyperplasia without lower urinary tract symptoms; Z79.01 Long term (current) use of anticoagulants; Z68.1 Body mass index [BMI] 19.9 or less, adult; N43.3 Hydrocele, unspecified; Z79.51 Long term (current) use of inhaled steroids; Z79.899 Other long term (current) drug therapy; Z91.041 Radiographic dye allergy status; Z87.891 Personal history of nicotine dependence; Z87.39 Personal history of other diseases of the musculoskeletal system and connective tissue
CPT/HCPCS: 36415; 36430; 71045; 71046; 80048; 80053; 81001; 82607; 82728; 82747; 83036; 83540; 83550; 83605; 83735; 83880; 84145; 84443; 84484; 85025; 85610; 85730; 86850; 86900; 86901; 86920; 87040; 87070; 87086; 87205; 87449; 87636; 93005; 94640; 94760; 96365; 96366; 96367; 96375; 99285

== ENCOUNTER 2023-10-13 09:21 | Inpatient (IN) | payer OTHER ==
--- NOTE | 2023-10-13 10:55 | ED ---
General Adult HPI - General Chief complaint: Arrhythmia/Palpitations Stated complaint: Petitioned Time Seen by Provider: 10/13/23 09:25 Source: patient, EMS, RN notes reviewed, old records reviewed Mode of arrival: EMS - History of Present Illness Initial comments: This is a 63-year-old male who presents to the emergency department complaining of being suicidal. Patient himself will not talk about it but he is petition by his caregiver because he had called his caregiver up this morning and stated he is going to shoot himself. Patient has stage IV bladder cancer with metastases. Patient is getting progressively worse and is in constant pain and so he is frustrated. According to the caregiver the patient is unable to stay at home anymore because he cannot walk or get around to take care of himself so he needs to be put into a facility she is wanting him to go to hospice but he is not sure if he will agree. Patient himself complains of pain in in his lower abdomen which has been there for months but he states he continues on the [place] barely does anything to help it. Patient states he took a [place] prior to coming. Patient denies chest pain Diffley breathing shortness of breath. Patient denies any other symptoms at this time - Related Data Home Medications Medication Instructions Recorded Confirmed Ondansetron [Zofran] 4 mg PO Q4H PRN 05/25/23 10/13/23 HYDROcodone/APAP 10-325MG [[place] 1 tab PO Q4HR PRN 06/06/23 10/13/23 10-325] Apixaban [Eliquis] 2.5 mg PO BID 07/01/23 10/13/23 Budesonide/Formoterol Fumarate 2 puff INHALATION RT-BID PRN 07/01/23 10/13/23 [Symbicort 160-4.5 Mcg Inhaler] Ipratropium-Albuterol Nebulize 3 ml INHALATION RT-QID PRN 07/01/23 10/13/23 [Duoneb 0.5 mg-3 mg/3 ml Soln] Amiodarone [Cordarone] 200 mg PO DAILY 07/19/23 10/13/23 Albuterol Sulfate [Albuterol 2 puff INHALATION RT-Q4H PRN 09/17/23 10/13/23 Sulfate Hfa] Sennosides-Docusate Sodium 2 tab PO BID 10/03/23 10/13/23 [Senokot-S] Multivitamins, Thera [Multivitamin 1 tab PO DAILY@1200 10/13/23 10/13/23 (formulary)] Nystatin 100,000 Unit/ml Susp 500,000 unit PO DIRECTED 10/13/23 10/13/23 [Mycostatin Oral Susp] Previous Rx's Medication Instructions Recorded Magnesium Hydroxide [Milk of 2,400 mg PO BID PRN ml 09/24/23 Magnesia] Sucralfate [Carafate] 1 gm PO AC-BID #60 tab 09/24/23 polyethylene glycoL 3350 [Miralax] 17 gm PO DAILY #30 packet 09/24/23 Folic Acid 1 mg PO DAILY@1200 #30 tab 10/09/23 Ipratropium-Albuterol Nebulize 3 ml INHALATION RT-QID #100 each 10/09/23 [Duoneb 0.5 mg-3 mg/3 ml Soln] Metoprolol Tartrate [Lopressor] 75 mg PO TID 30 Days #180 tab 10/09/23 Thiamine [Vitamin B-1] 100 mg PO DAILY@1200 #30 tab 10/09/23 cefUROXime axetiL [Ceftin] 500 mg PO BID 5 Days #10 tab 10/09/23 Allergies Allergy/AdvReac Type Severity Reaction Status Date / Time Iodinated Contrast Media Allergy Neck Verified 10/13/23 12:46 swelling/Rash Review of Systems ROS Statement: Those systems with pertinent positive or pertinent negative responses have been documented in the HPI. ROS Other: All systems not noted in ROS Statement are negative. Past Medical History Past Medical History: No Reported History, Atrial Fibrillation, Cancer, COPD Additional Past Medical History / Comment(s): bladder cancer stage 4 -metastatic History of Any Multi-Drug Resistant Organisms: None Reported Past Surgical History: No Surgical Hx Reported Additional Past Surgical History / Comment(s): 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 left nephrostomy tube (2023) Past Anesthesia/Blood Transfusion Reactions: No Reported Reaction Past Psychological History: No Psychological Hx Reported Smoking Status: Former smoker Past Alcohol Use History: None Reported Past Drug Use History: None Reported - Past Family History Father Family Medical History: Cancer Additional Family Medical History / Comment(s): lung cancer, smoker General Exam - General Exam Comments Initial Comments: GENERAL: Patient is well-developed and well-nourished. Patient is nontoxic and well- hydrated and is in no acute distress. ENT: Neck is soft and supple. No significant lymphadenopathy is noted. Oropharynx is clear. Moist mucous membranes. Neck has full range of motion without eliciting any pain. EYES: The sclera were anicteric and conjunctiva were pink and moist. Extraocular movements were intact and pupils were equal round and reactive to light. Eyelids were unremarkable. PULMONARY: Unlabored respirations. Good breath sounds bilaterally. No audible rales rhonchi or wheezing was noted. CARDIOVASCULAR: There is a regular rate and rhythm without any murmurs gallops or rubs. ABDOMEN: Patient has some suprapubic abdominal fullness and tenderness SKIN: Skin is clear with no lesions or rashes and otherwise unremarkable. NEUROLOGIC: Patient is alert and oriented x3. Cranial nerves II through XII are grossly intact. Motor and sensory are also intact. Normal speech, volume and content. Symmetrical smile. MUSCULOSKELETAL: Normal extremities with adequate strength and full range of motion. No lower extremity swelling or edema. No calf tenderness. LYMPHATICS: No significant lymphadenopathy is noted PSYCHIATRIC: Patient has a very flat affect and is frustrated with the amount of pain that he is in. Course Vital Signs 10/13/23 10/13/23 10/13/23 09:23 09:47 09:53 Temperature 97.5 F L Pulse Rate 104 H 101 H Pulse Rate [ 98 Right Supine Radial] Respiratory 14 16 Rate Blood Pressure 103/76 102/66 O2 Sat by Pulse 95 99 Oximetry 10/13/23 12:00 Temperature Pulse Rate 101 H Pulse Rate [ Right Supine Radial] Respiratory 14 Rate Blood Pressure 111/76 O2 Sat by Pulse 95 Oximetry Medical Decision Making - Medical Decision Making EKG is interpreted by myself but EKG shows a sinus tachycardia with occasional PAC at 106 bpm parable 146 QRS 85 QT interval 342 QTc is 404. Patient's EKG shows no ST segment ovation or depression. Was pt. sent in by a medical professional or institution (, PA, GAS FITTER, urgent care, hospital, or retirement...) When possible be specific @ -No Did you speak to anyone other than the patient for history (EMS, parent, family, police, friend...)? What history was obtained from this source @ -No Did you review nursing and triage notes (agree or disagree)? Why? @ -I reviewed and agree with nursing and triage notes Were old charts reviewed (outside hosp., previous admission, EMS record, old EKG, old radiological studies, urgent care reports/EKG's, retirement records)? Report findings @ -No old charts were reviewed Differential Diagnosis? @ -Differential Mental Health Depression, anxiety, bipolar, psychosis, schizophrenia, borderline personality, situational depression, adjustment disorder, behavioral disorder, brain tumor, malingering, substance abuse, encephalopathy, medication reaction, dementia, hypothyroidism, degenerative neurologic disorder, lupus.... This is not meant to be all-inclusive list EKG interpreted by me (3pts min.). @ -As above X-rays interpreted by me (1pt min.). @ -None done CT interpreted by me (1pt min.). @ -None done U/S interpreted by me (1pt. min.). @ -None done What testing was considered but not performed or refused? (CT, X-rays, U/S, labs)? Why? @ -None What meds were considered but not given or refused? Why? @ -None Did you discuss the management of the patient with other professionals (professionals i.e. , PA, GAS FITTER, lab, RT, psych nurse, social media designer, bi analyst, teacher, child support case officer, case briefer)? Give summary @ - She excepted the patient Was smoking cessation discussed for >3mins.? @ -No Was critical care preformed (if so, how long)? @ -No Were there social determinants of health that impacted care today? How? (Homelessness, low income, unemployed, alcoholism, drug addiction, transportation, low edu. Level, literacy, decrease access to med. care, correction, rehab)? @ -No Was there de-escalation of care discussed even if they declined (Discuss DNR or withdrawal of care, Hospice)? DNR status @ -No What co-morbidities impacted this encounter? (DM, HTN, Smoking, COPD, CAD, Cancer, CVA, ARF, Chemo, Hep., AIDS, mental health diagnosis, sleep apnea, morbid obesity)? @ -None Was patient admitted / discharged? Hospital course, mention meds given and route, prescriptions, significant lab abnormalities, going to OR and other pertinent info. @ -Patient refused all lab work he was however okay with getting a IV so acute pain medication. Patient will be admitted to Dr. Ahmadi and psych will be consulted Undiagnosed new problem with uncertain prognosis? @ -No Drug Therapy requiring intensive monitoring for toxicity (Heparin, Nitro, Insulin, Cardizem)? @ -No Were any procedures done? @ -No Diagnosis/symptom? @ -Suicidal ideation Acute, or Chronic, or Acute on Chronic? @ -Acute Uncomplicated (without systemic symptoms) or Complicated (systemic symptoms)? @ -Complicated Side effects of treatment? @ -No Exacerbation, Progression, or Severe Exacerbation? @ -No Poses a threat to life or bodily function? How? (Chest pain, [place], ID, pneumonia, PE, COPD, DKA, ARF, appy, cholecystitis, CVA, Diverticulitis, Homicidal, Suicidal, threat to staff... and all critical care pts) @ -Yes this could lead to the patient's staff diagnosis/symptom? @ -Bladder cancer with metastases Acute, or Chronic, or Acute on Chronic? @ -Chronic Uncomplicated (without systemic symptoms) or Complicated (systemic symptoms)? @ -complicated Side effects of treatment? @ -None Exacerbation, Progression, or Severe Exacerbation] @ -No Poses a threat to life or bodily function? @ -No Diagnosis/symptom? @ -Hospice care Acute, or Chronic, or Acute on Chronic? @ -Acute Uncomplicated (without systemic symptoms) or Complicated (systemic symptoms)? @ -Default Side effects of treatment? @ -None Exacerbation, Progression, or Severe Exacerbation] @ -No Poses a threat to life or bodily function? @ -No Disposition Clinical Impression: Suicidal ideations, Bladder cancer, Hospice care Disposition: ADMITTED IP TO THIS HOSP Referrals: Carlos Hankins MD [Primary Care Provider] - 1-2 days Time of Disposition: 13:42
[2023-10-13] MEDS: KETOROLAC 15 MG/ML 1 ML VIAL IVP STA (12:06)
[2023-10-13] MEDS: HYDROmorphone 1 MG/ML 1 ML SYRINGE IVP STA (12:07)
[2023-10-13] MEDS ORDERED: DOCUSATE 100 MG CAP PO PRN (14:04)
[2023-10-13] MEDS: SODIUM CHLORIDE 0.9% 1,000 ML IV ONE (17:21)
--- NOTE | 2023-10-13 20:30 | P.HPIM ---
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 Was admitted today from emergency room for suicidal attempt and hospice care. Patient was seen and examined in the emergency room, he was Evaluated and oriented, vitamin D is very good no distress. When I asked patient for the reason for coming to the hospital he replied "I could not take it the pain cannot walk cannot stand up, currently off go anywhere else" Patient himself is awake oriented to time place person he does not remember the hospital, the exact date and the names of the president. He has insight into his illness. His main physical problem is pain in his groin area and he rated as severe. He said he was taking [place] 10 but did not improve him. Patient also complaining from constipation He has some chest pain with coughing with little dyspnea. But no headache dizziness weakness specific to 11 or numbness. Patient states he is able to resume Patient refused to do any labs [comfortably His labs showing oxygen saturation 100% on 2 L, temperature 97.5, heart rate 69, respiratory rate 19 EKG shows sinus tachycardia at 106 Patient received normal saline emergency room Past Medical History Past Medical History: No Reported History, Atrial Fibrillation, Cancer, COPD Additional Past Medical History / Comment(s): bladder cancer stage 4 -metastatic History of Any Multi-Drug Resistant Organisms: None Reported Past Surgical History: No Surgical Hx Reported Additional Past Surgical History / Comment(s): 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 left nephrostomy tube (2023) Past Anesthesia/Blood Transfusion Reactions: No Reported Reaction Past Psychological History: No Psychological Hx Reported Smoking Status: Former smoker Past Alcohol Use History: None Reported Past Drug Use History: None Reported - Past Family History Father Family Medical History: Cancer Additional Family Medical History / Comment(s): lung cancer, smoker Medications and Allergies Home Medications Medication Instructions Recorded Confirmed Type Ondansetron [Zofran] 4 mg PO Q4H PRN 05/25/23 10/13/23 History HYDROcodone/APAP 10-325MG [[place] 1 tab PO Q4HR PRN 06/06/23 10/13/23 History 10-325] Apixaban [Eliquis] 2.5 mg PO BID 07/01/23 10/13/23 History Budesonide/Formoterol Fumarate 2 puff INHALATION RT-BID PRN 07/01/23 10/13/23 History [Symbicort 160-4.5 Mcg Inhaler] Ipratropium-Albuterol Nebulize 3 ml INHALATION RT-QID PRN 07/01/23 10/13/23 History [Duoneb 0.5 mg-3 mg/3 ml Soln] Amiodarone [Cordarone] 200 mg PO DAILY 07/19/23 10/13/23 History Albuterol Sulfate [Albuterol 2 puff INHALATION RT-Q4H PRN 09/17/23 10/13/23 History Sulfate Hfa] Magnesium Hydroxide [Milk of 2,400 mg PO BID PRN ml 09/24/23 10/13/23 Rx Magnesia] Sucralfate [Carafate] 1 gm PO AC-BID #60 tab 09/24/23 10/13/23 Rx polyethylene glycoL 3350 [Miralax] 17 gm PO DAILY #30 packet 09/24/23 10/13/23 Rx Sennosides-Docusate Sodium 2 tab PO BID 10/03/23 10/13/23 History [Senokot-S] Folic Acid 1 mg PO DAILY@1200 #30 tab 10/09/23 10/13/23 Rx Ipratropium-Albuterol Nebulize 3 ml INHALATION RT-QID #100 each 10/09/23 10/13/23 Rx [Duoneb 0.5 mg-3 mg/3 ml Soln] Metoprolol Tartrate [Lopressor] 75 mg PO TID 30 Days #180 tab 10/09/23 10/13/23 Rx Thiamine [Vitamin B-1] 100 mg PO DAILY@1200 #30 tab 10/09/23 10/13/23 Rx cefUROXime axetiL [Ceftin] 500 mg PO BID 5 Days #10 tab 10/09/23 10/13/23 Rx Multivitamins, Thera [Multivitamin 1 tab PO DAILY@1200 10/13/23 10/13/23 History (formulary)] Nystatin 100,000 Unit/ml Susp 500,000 unit PO DIRECTED 10/13/23 10/13/23 History [Mycostatin Oral Susp] Allergies Allergy/AdvReac Type Severity Reaction Status Date / Time Iodinated Contrast Media Allergy Neck Verified 10/13/23 12:46 swelling/Rash Physical Exam Vitals: Vital Signs Temp Pulse Pulse Resp BP Pulse Ox 10/13/23 12:00 101 H 14 111/76 95 10/13/23 09:53 98 10/13/23 09:47 101 H 16 102/66 99 10/13/23 09:23 97.5 F L 104 H 14 103/76 95 Intake and Output 10/12/23 10/13/23 10/13/23 22:59 06:59 14:59 Other: Weight 43.091 kg -GENERAL: The patient is alert and oriented x3, not in any acute distress. Well developed, well nourished. Withdrawn, Calm. Cachexia HEENT: Pupils are round and equally reacting to light. EOMI. No scleral icterus. No conjunctival pallor. Normocephalic, atraumatic. No pharyngeal erythema. No thyromegaly. CARDIOVASCULAR: S1 and S2 present. No murmurs, rubs, or gallops. PULMONARY: Chest is clear to auscultation, no wheezing , no crackles. ABDOMEN: Soft, nontender, nondistended, normoactive bowel sounds. No palpable organomegaly. MUSCULOSKELETAL: No joint swelling or deformity. EXTREMITIES: No cyanosis, clubbing, or pedal edema. NEUROLOGICAL: Gross neurological examination did not reveal any focal deficits. SKIN: No rashes. no petechiae. 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 Plan: Continue with pain management Morphine as needed Colace as needed Nutrition consult Antidepressants and other management per psychiatry consult Psychiatric consult is requested Suicidal id precaution. Continue sitter at bedside Hospice consult requested from emergency room. Patient and family request DVT and GI prophylaxis Prognosis guarded
[2023-10-13] MEDS: MORPHINE SULFATE 4 MG/ML SYRINGE IVP PRN (20:45)
[2023-10-13] MEDS: MIRTAZAPINE 15 MG TAB PO SCH (20:47)
--- NOTE | 2023-10-13 22:20 | P.CN ---
Psychiatric Consult - . Consult date: 10/13/23 Consult:: IDENTIFYING DATA: This patient is a 63 year old male with history of stage IV bladder cancer with metastasis to lung, mediastinum, liver and bones. REASON FOR REFERRAL: Psychiatry was consulted for "suicidal ideations" HISTORY OF PRESENT ILLNESS: The patient presented to the hospital on 10/13/23 with complaint of suicidal ideation. Per ER note "This is a 63-year-old male who presents to the emergency department complaining of being suicidal. Patient himself will not talk about it but he is petition by his caregiver because he had called his caregiver up this morning and stated he is going to shoot himself. Patient has stage IV bladder cancer with metastases. Patient is getting progressively worse and is in constant pain and so he is frustrated. According to the caregiver the patient is unable to stay at home anymore because he cannot walk or get around to take care of himself so he needs to be put into a facility she is wanting him to go to hospice but he is not sure if he will agree. Patient himself complains of pain in in his lower abdomen which has been there for months but he states he continues on the [place] barely does anything to help it. Patient states he took a [place] prior to coming. Patient denies chest pain Diffley breathing shortness of breath. Patient denies any other symptoms at this time." A petition was completed by his home health aid Kalie ([phone]) due to his suicidal ideations with plan to shoot himself. On my evaluation, patient was found calmly laying in ER bed 13 with lights off. He reports suicidal ideations with plan to shoot himself. He reports he had been sleeping next to a loaded gun for the past few days and contemplating suicide. He states at one point the gun "wasn't working" because he "couldn't cock the hammer" so he cleaned the gun until it was usable. He states earlier today he took the loaded gun out on the front porch and put the gun to his head, wanted to kill himself on the porch so he wouldn't "make a mess inside the house". His neighbor came home and patient decided to not pull the trigger (but wanted to) because he didn't want the neighbor and his family to see this, so he aborted the suicide attempt. He reports feeling hopeless, helpless, worthless, depressed mood, poor sleep due to chronic pain from cancer, decreased appetite with unintentional weight loss, appears withdrawn. He states he has not eaten yet today. Patient denies any homicidal ideations, auditory or visual hallucinations and denies any paranoia or delusions. He denies recent drug or alcohol use. PAST PSYCHIATRIC HISTORY: Patient denies any past psychiatric history. Patient denies being on any psychiatric medications. Patient denies any previous psychiatric hospitalizations. Patient denies any psychiatric outpatient follow- up. Patient denies any history of suicide attempts in the past. PAST MEDICAL HISTORY: Past Medical History: No Reported History, Atrial Fibrillation, Cancer, COPD Additional Past Medical History / Comment(s): bladder cancer stage 4 -metastatic History of Any Multi-Drug Resistant Organisms: None Reported Past Surgical History: No Surgical Hx Reported Additional Past Surgical History / Comment(s): 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 left nephrostomy tube (2023) Past Anesthesia/Blood Transfusion Reactions: No Reported Reaction Past Psychological History: No Psychological Hx Reported Smoking Status: Former smoker Past Alcohol Use History: None Reported Past Drug Use History: None Reported ALLERGIES: as per EMR. CHEMICAL DEPENDENCY HISTORY: as per HPI. FAMILY PSYCHIATRIC/SUBSTANCE USE HISTORY: denies SOCIAL HISTORY: Lives alone. Brother and sister are supportive. Has a home health aid (Kalie Aragon). MENTAL STATUS EXAM: General Appearance: Patient appears older than stated age, cachectic, tattoos on arms, disheveled, unshaven, dressed in hospital gown. Patient appears to have fair hygiene and grooming wearing hospital gown with fair eye contact. Behavior: Patient is calmly lying in bed without any agitated behavior. Withdrawn. Speech: Patient's speech is fluent and non-pressured, soft tone. Mood/Affect: Patient reports their mood is "depressed", affect is congruent Suicidality/Homicidality: Patient endorses suicidal ideation (and aborted suicide attempt by attempting to shoot self with a gun earlier today). He denies homicidal ideation intent or plan. Perceptions: Patient denies any visual hallucinations and denies any auditory hallucinations. Though content/process: There is no evidence of any delusional thought content and thought process is linear. Memory and concentration: AOX3, grossly intact for the purposes of this session. Judgment and insight: fair/poor IMPRESSIONS: Unspecified depressive disorder, r/o MDD vs depressive disorder due to medical condition Stage IV cancer (metastasis to lung, mediastinum, liver and bones) PLAN: -At this time patient DOES meet criteria for inpatient psychiatric admission, however due to the severity of his medical condition he is not appropriate for the psychiatry unit at this time. Psychiatry will follow patient on the medical floor for medication management, followed by discharge to hospice (family prefers [facility]) once psychiatrically stable. -Delirium precautions recommended with patient including - avoiding use of narcotics and DIRECTOR OF PRODUCT MARKETING sedatives, limit anticholinergic medications when possible, frequent re-orientation, minimize use of restraints, open window shades during the day and close them at night -Would recommend the following medication changes/additions: Start Remeron 15 mg QHS for depression/sleep. -Patient does not want to be "poked" often for lab draws. He is agreeable to have labs drawn through his IV, but please limit the number of attempts for patient's comfort. -Continue 1:1 sitter for safety. -Cannot leave AMA at this time. Patient is currently on a petition for suicidal ideation. -Communicated plan to patient's nurse. Patient is in agreement with plan. -Will continue to follow along. -Please contact with any questions.
[2023-10-14] MEDS: KETOROLAC 15 MG/ML 1 ML VIAL IVP PRN (04:05)
[2023-10-14 06:00] LABS: ALT 22 U/L (4-49); AST 28 U/L (17-59); African American GFR (CKD) >90 (>60 ml/min/1.73 sqM); Albumin 2.2 g/dL (3.5-5.0); Alkaline Phosphatase 491 U/L (38-126); Anion Gap 6 mmol/L; Blood Urea Nitrogen 24 mg/dL (9-20); Calcium 7.9 mg/dL (8.4-10.2); Carbon Dioxide 22 mmol/L (22-30); Chloride 100 mmol/L (98-107); Glucose 81 mg/dL (74-99); Non-African American GFR(CKD) >90 (>60 ml/min/1.73 sqM); Potassium 4.7 mmol/L (3.5-5.1); Sodium 128 mmol/L (137-145); Total Bilirubin 1.3 mg/dL (0.2-1.3); Total Protein 4.6 g/dL (6.3-8.2)
[2023-10-14 07:07] LABS: Anisocytosis Slight; HCT 24.8 % (39.0-53.0); Hypochromasia Marked; MCH 22.4 pg (25.0-35.0); MCHC 27.8 g/dL (31.0-37.0); MCV 80.6 fL (80.0-100.0); Mean Platelet Volume 10.3; Microcytosis Slight; RBC 3.08 m/uL (4.30-5.90); RDW 18.9 % (11.5-15.5); WBC 39.9 k/uL (3.8-10.6)
[2023-10-14 07:21] LABS: HGB 6.9 gm/dL (13.0-17.5)
[2023-10-14 07:47] VITALS: RESP 16
[2023-10-14 07:58] LABS: Band Neutrophils % 2 %; Neutrophils % (M) 95 %; Nucleated Red Blood Cells 0 /100 WBC (0-0); Total Cells Counted 100
[2023-10-14] MEDS: ALPRAZolam 0.25 MG TAB PO PRN (11:30)
--- NOTE | 2023-10-14 12:53 | P.CONS ---
History of Present Illness - Reason for Consult Consult date: 10/14/23 Metastatic Bladder Cancer - Chief Complaint Suicidal Ideation - History of Present Illness Mr. Jimenez is a 63-year-old gentleman with a history of metastatic urothelial carcinoma who completed 5 cycles of Padcev/Keytruda and started cycle 6 on 09/26/2023 who presents to the ED after concern for active suicidal ideation. He notes having had active plan to shoot himself with a gun in a room at his home where his father had , but did not go through with this plan due to neighbors coming to visit him. Over the past month, he has had progressive weakness and pain in the groin area along with leg swelling. He has had 2 inpatient hospitalizations over the past month. He notes the weakness and pain were the main reasons for contemplating suicide. Review of Systems 14 point review of systems was conducted with pertinent positives and negatives as noted per HPI Past Medical History Past Medical History: No Reported History, Atrial Fibrillation, Cancer, COPD Additional Past Medical History / Comment(s): bladder cancer stage 4 -metastatic History of Any Multi-Drug Resistant Organisms: None Reported Past Surgical History: No Surgical Hx Reported Additional Past Surgical History / Comment(s): 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 left nephrostomy tube (2023) Past Anesthesia/Blood Transfusion Reactions: No Reported Reaction Past Psychological History: No Psychological Hx Reported Smoking Status: Former smoker Past Alcohol Use History: None Reported Past Drug Use History: None Reported - Past Family History Father Family Medical History: Cancer Additional Family Medical History / Comment(s): lung cancer, smoker Medications and Allergies Home Medications Medication Instructions Recorded Confirmed Type Ondansetron [Zofran] 4 mg PO Q4H PRN 05/25/23 10/13/23 History HYDROcodone/APAP 10-325MG [[place] 1 tab PO Q4HR PRN 06/06/23 10/13/23 History 10-325] Apixaban [Eliquis] 2.5 mg PO BID 07/01/23 10/13/23 History Budesonide/Formoterol Fumarate 2 puff INHALATION RT-BID PRN 07/01/23 10/13/23 History [Symbicort 160-4.5 Mcg Inhaler] Ipratropium-Albuterol Nebulize 3 ml INHALATION RT-QID PRN 07/01/23 10/13/23 History [Duoneb 0.5 mg-3 mg/3 ml Soln] Amiodarone [Cordarone] 200 mg PO DAILY 07/19/23 10/13/23 History Albuterol Sulfate [Albuterol 2 puff INHALATION RT-Q4H PRN 09/17/23 10/13/23 History Sulfate Hfa] Magnesium Hydroxide [Milk of 2,400 mg PO BID PRN ml 09/24/23 10/13/23 Rx Magnesia] Sucralfate [Carafate] 1 gm PO AC-BID #60 tab 09/24/23 10/13/23 Rx polyethylene glycoL 3350 [Miralax] 17 gm PO DAILY #30 packet 09/24/23 10/13/23 Rx Sennosides-Docusate Sodium 2 tab PO BID 10/03/23 10/13/23 History [Senokot-S] Folic Acid 1 mg PO DAILY@1200 #30 tab 10/09/23 10/13/23 Rx Ipratropium-Albuterol Nebulize 3 ml INHALATION RT-QID #100 each 10/09/23 10/13/23 Rx [Duoneb 0.5 mg-3 mg/3 ml Soln] Metoprolol Tartrate [Lopressor] 75 mg PO TID 30 Days #180 tab 10/09/23 10/13/23 Rx Thiamine [Vitamin B-1] 100 mg PO DAILY@1200 #30 tab 10/09/23 10/13/23 Rx cefUROXime axetiL [Ceftin] 500 mg PO BID 5 Days #10 tab 10/09/23 10/13/23 Rx Multivitamins, Thera [Multivitamin 1 tab PO DAILY@1200 10/13/23 10/13/23 History (formulary)] Nystatin 100,000 Unit/ml Susp 500,000 unit PO DIRECTED 10/13/23 10/13/23 History [Mycostatin Oral Susp] Allergies Allergy/AdvReac Type Severity Reaction Status Date / Time Iodinated Contrast Media Allergy Neck Verified 10/13/23 12:46 swelling/Rash Physical Exam Vitals: Vital Signs Temp Pulse Pulse Pulse Resp BP BP 10/14/23 07:25 97.6 F 84 16 136/81 10/14/23 02:29 97.9 F 76 15 10/13/23 20:00 76 98 15 10/13/23 19:41 97.7 F 73 16 10/13/23 15:47 97.5 F L 69 19 10/13/23 15:00 70 16 102/67 BP Pulse Ox 10/14/23 07:25 98 10/14/23 02:29 114/66 99 10/13/23 20:00 10/13/23 19:41 113/70 100 10/13/23 15:47 120/73 100 10/13/23 15:00 98 Intake and Output 10/13/23 10/14/23 10/14/23 22:59 06:59 14:59 Intake Total 960 480 Output Total 125 Balance 960 355 Intake: Oral 960 480 Output: Urine 125 Other: # Voids 2 # Bowel Movements 1 - Constitutional Cachectic with masseter muscle atrophy bilaterally - EENT Eyes: EOMI - Respiratory Nonlabored breathing - Cardiovascular Warm and well-perfused - Gastrointestinal General gastrointestinal: no distended, soft - Integumentary Integumentary: pale - Neurologic Neurologic: CNII-XII intact Results CBC & Chem 7: 10/14/23 05:23 10/14/23 05:23 Labs: Abnormal Lab Results - Last 24 Hours (Table) 10/14/23 10/14/23 Range/Units 05:23 05:23 WBC 39.9 H (3.8-10.6) k/uL RBC 3.08 L (4.30-5.90) m/uL Hgb 6.9 L* (13.0-17.5) gm/dL Hct 24.8 L (39.0-53.0) % MCH 22.4 L (25.0-35.0) pg MCHC 27.8 L (31.0-37.0) g/dL RDW 18.9 H (11.5-15.5) % Neutrophils # (Manual) 38.70 H (1.3-7.7) k/uL Lymphocytes # (Manual) 0.40 L (1.0-4.8) k/uL Sodium 128 L (137-145) mmol/L BUN 24 H (9-20) mg/dL Calcium 7.9 L (8.4-10.2) mg/dL Alkaline Phosphatase 491 H (38-126) U/L Total Protein 4.6 L (6.3-8.2) g/dL Albumin 2.2 L (3.5-5.0) g/dL Assessment and Plan (1) Metastatic urothelial carcinoma Current Visit: Yes Status: Acute Code(s): C79.10 - SECONDARY MALIGNANT NEOPLASM OF UNSPECIFIED URINARY ORGANS SNOMED Code(s): 99549999 (2) Suicidal ideations Current Visit: Yes Status: Acute Code(s): R45.851 - SUICIDAL IDEATIONS SNOMED Code(s): 6115837 Plan: #Suicidal ideation, metastatic urothelial carcinoma of the bladder -Presented with active suicidal ideation due to pain and weakness from metastatic malignancy -He last received day 1, cycle 6 of Padcev/Keytruda on 09/26/2023 -Clinically, he has had increased weakness and pain in the bilateral groin region concerning for clinical progression -Agree with psychiatry that he would not benefit from inpatient hospitalization -I do agree with transitioning to hospice along with CODE STATUS of DNR -We reviewed the stage of his malignancy and discussed the concern for clinical progression and how the treatment was not helping -We also discussed the goal of hospice was to focus on managing signs and symptoms to help improve quality of life, which he was in agreement with -Please discontinue all lab orders and vital signs while he is inpatient Carlos Hankins MD
[2023-10-14 13:12] VITALS: BP 138/76; PULSE 76; TEMP 98.1
[2023-10-15 12:21] VITALS: BMI 12.2
--- NOTE | 2023-10-15 14:07 | P.PN ---
Progress Note - Text Progress Note Date: 10/15/23 Psychiatry follow-up note: Interval history: Patient was seen resting in bed this morning, is awake, with sitter at bedside to maintain safety. He is agreeable to speak with this personal lines underwriter. He appears tired and pale, mood is still depressed but slightly improving. At this time patient denies any suicidal or homicidal ideation, intent or plan. He denies any plans to self-harm. He denies any auditory or visual hallucinations. Patient has been compliant with the Remeron and denies any side effects. He would like to be discharged to hospice. Mental status exam: General Appearance: Patient appears to be older than stated age, cachectic adult male with palor, fair hygiene/grooming, tattoos on arms. Behavior: No agitated behavior. Patient is calm, laying in bed with oxygen nasal cannula. Speech: Patient's speech is fluent and non-pressured. Mood/Affect: Mood is improving mildly, affect is congruent and constricted. Suicidality/Homicidality: Patient denies having any suicidal or homicidal ideation intent or plan. Perceptions: Patient denies any auditory or visual hallucinations. Though content/process: There is no evidence of any delusional thought content and thought process is linear and future-oriented, wants to go to hospice. Memory and concentration: AOX3, grossly intact for the purposes of this session Judgment and insight: poor/fair Assessment/Plan: IMPRESSIONS: Unspecified depressive disorder, r/o MDD vs depressive disorder due to medical condition Stage IV cancer (metastasis to lung, mediastinum, liver and bones) PLAN: -At this time, patient does not require inpatient psychiatric admission. He may be discharged to hospice when a bed is available. -Delirium precautions recommended with patient including - avoiding use of narcotics and INTEGRITY ENGINEER sedatives, limit anticholinergic medications when possible, f requent re-orientation, minimize use of restraints, open window shades during the day and close them at night -Would recommend the following medication changes/additions: Continue Remeron 15 mg QHS for depression/sleep. -Can discontinue 1:1 sitter for safety for now. Continue to re-evaluate safety and resume sitter if safety concerns arise. -Communicated plan to patient's nurse. Patient is in agreement with plan. -Psychiatry will sign off at this time. -Please contact with any questions.
--- NOTE | 2023-10-15 21:29 | P.PN ---
Subjective Progress Note Date: 10/15/23 Patient is a pleasant 63 years old male with past medical history of multiple medical problems, he has history of metastatic urinary bladder disease to various organs including the lung, mediastinum, liver and bones. Was admitted today from emergency room for suicidal attempt and hospice care. Patient was seen and examined in the emergency room, he was Evaluated and oriented, vitamin D is very good no distress. When I asked patient for the reason for coming to the hospital he replied "I could not take it the pain cannot walk cannot stand up, currently off go anywhere else" Patient himself is awake oriented to time place person he does not remember the hospital, the exact date and the names of the president. He has insight into his illness. His main physical problem is pain in his groin area and he rated as severe. He said he was taking [employer] 10 but did not improve him. Patient also complaining from constipation He has some chest pain with coughing with little dyspnea. But no headache dizz iness weakness specific to 11 or numbness. Patient states he is able to resume Patient refused to do any labs [comfortably His labs showing oxygen saturation 100% on 2 L, temperature 97.5, heart rate 69, respiratory rate 19 EKG shows sinus tachycardia at 106 Patient received normal saline emergency room 10/15/2023 Patient evaluated in follow up on the medical floor. He continues to report suicidal ideation. Psychiatry to follow up. Plan is for transfer to [facility] once cleared by psych. Patient has 1:1 sitter at the bedside. He is continued on oxygen support. He reports improvement in his pain level. Review of Systems Constitutional: Denied any fatigue denied any fever. Cardio vascular: denied any chest pain, palpitations Gastrointestinal: denied any nausea, vomiting, diarrhea Pulmonary: Denied any shortness of breath cough Neurologic denied any new focal deficits All inpatient medications were reviewed and appropriate changes in these medications as dictated in the interval history and assessment and plan. PHYSICAL EXAMINATION: GENERAL: The patient is alert and oriented x3, not in any acute distress. Well developed, well nourished. HEENT: Pupils are round and equally reacting to light. EOMI. No scleral icterus. No conjunctival pallor. Normocephalic, atraumatic. No pharyngeal erythema. No thyromegaly. CARDIOVASCULAR: S1 and S2 present. No murmurs, rubs, or gallops. PULMONARY: Chest is clear to auscultation, no wheezing or crackles. ABDOMEN: Soft, nontender, nondistended, normoactive bowel sounds. No palpable organomegaly. MUSCULOSKELETAL: No joint swelling or deformity. EXTREMITIES: No cyanosis, clubbing, or pedal edema. NEUROLOGICAL: Gross neurological examination did not reveal any focal deficits. SKIN: No rashes. 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 Plan: Continue with pain management Morphine as needed Colace as needed Nutrition consult Antidepressants and other management per psychiatry consult Psychiatric consult to follow up with the patient today. Suicidal id precaution. Continue sitter at bedside Transfer to hospice house DNR The impression and plan of care has been dictated by Cat Sanchez Nurse Practitioner as directed. Dr. Arun MD I have performed a history and physical examination and medical decision making of this patient, discussed the same with the dictator, and agree with the dictators assessment and plan as written, documented as a scribe. Based on total visit time, I have performed more than 50% of this visit. Objective - Vital Signs Vital signs: Vital Signs Temp 98.1 F 10/14/23 13:11 Pulse 76 10/14/23 13:11 Resp 16 10/14/23 13:11 BP 138/76 10/14/23 13:11 Pulse Ox 98 10/14/23 13:11 FiO2 Intake & Output 10/15/23 10/15/23 10/16/23 06:59 18:59 06:59 Output Total 125 150 Balance -125 -150 Weight 43.091 kg Output: Drainage 150 Left 150 Urine 125 - Labs CBC & Chem 7: 10/14/23 05:23 10/14/23 05:23 Assessment and Plan Time with Patient: Less than 30
[2023-10-16] MEDS: guaiFENesin 600 MG TABLET.ER PO SCH (06:26)
--- NOTE | 2023-10-16 11:55 | P.PN ---
Subjective Patient is a pleasant 63 years old male with past medical history of multiple medical problems, he has history of metastatic urinary bladder disease to various organs including the lung, mediastinum, liver and bones. Was admitted today from emergency room for suicidal attempt and hospice care. Patient was seen and examined in the emergency room, he was Evaluated and oriented, vitamin D is very good no distress. When I asked patient for the reason for coming to the hospital he replied "I could not take it the pain cannot walk cannot stand up, currently off go anywhere else" Patient himself is awake oriented to time place person he does not remember the hospital, the exact date and the names of the president. He has insight into his illness. His main physical problem is pain in his groin area and he rated as severe. He said he was taking [place] 10 but did not improve him. Patient also complaining from constipation He has some chest pain with coughing with little dyspnea. But no headache dizziness weakness specific to 11 or numbness. Patient states he is able to resume Patient refused to do any labs [comfortably His labs showing oxygen saturation 100% on 2 L, temperature 97.5, heart rate 69, respiratory rate 19 EKG shows sinus tachycardia at 106 Patient received normal saline emergency room 10/14/23 Earlier in the day patient was to be full code and does not want hospice anymore. I want and I talked to the patient who was l in bed, looks relaxed We discussed his diagnosis and prognosis patient tolerated the presence of the nurse and continue to plan to go with Hospice team and agrees to talk to them The patient going back and forth caused confusion to the staff about his patient wishes I think the patient would benefit from psychiatrist evaluation. Suicidal precaution and sitter at bedside is present Hematology/oncology consult evaluated the patient The patient will remain no code per his wishes with him agree to hospice consult. Prognosis remains very poor Pain looks controlled, he remains on pain medication. He can be provided with more pain medication if if he needs more Review of systems CONSTITUTIONAL: No fever, no malaise, no fatigue. HEENT: No recent visual problems or hearing problems. Denied any sore throat. CARDIOVASCULAR: No orthopnea, PND, no palpitations, no syncope. GENITOURINARY: Denies any burning micturition, frequency, or urgency. MUSCULOSKELETAL/RHEUMATOLOGICAL: Denies any joint pain, swelling, or any muscle pain. ENDOCRINE: Denies any polyuria or polydipsia. Active Medications Generic Name Dose Route Start Last Admin Trade Name Freq PRN Reason Stop Dose Admin Alprazolam 0.25 mg 10/13/23 20:30 10/14/23 11:30 Alprazolam 0.25 Mg Tab PO 0.25 mg BID PRN Administration Anxiety Docusate Sodium 100 mg 10/13/23 14:04 Docusate 100 Mg Cap PO BID PRN Constipation Ketorolac Tromethamine 15 mg 10/13/23 20:31 10/15/23 00:43 Ketorolac 15 Mg/Ml 1 Ml Vial IVP 10/18/23 20:31 15 mg Q12HR PRN Administration Severe Breakthrough Pain Mirtazapine 15 mg 10/13/23 21:00 10/14/23 21:07 Mirtazapine 15 Mg Tab PO 15 mg HS SUGAR Administration Morphine Sulfate 4 mg 10/13/23 14:04 10/14/23 21:36 Morphine Sulfate 4 Mg/Ml Syringe IVP 4 mg Q4HR PRN Administration Pain Objective - Vital Signs Vital signs: Vital Signs Temp 98.1 F 10/14/23 13:11 Pulse 76 10/14/23 13:11 Resp 16 10/14/23 13:11 BP 138/76 10/14/23 13:11 Pulse Ox 98 10/14/23 13:11 FiO2 Intake & Output 10/13/23 10/14/23 10/14/23 18:59 06:59 18:59 Intake Total 960 980 Output Total 125 Balance 960 855 Weight 43.091 kg Intake: Oral 960 980 Output: Urine 125 Other: # Voids 2 # Bowel Movements 1 - Exam -GENERAL: The patient is alert and oriented x3, not in any acute distress. Cachectic. Generally weak HEENT: Pupils are round and equally reacting to light. EOMI. No scleral icterus. No conjunctival pallor. Normocephalic, atraumatic. No pharyngeal erythema. No thyromegaly. CARDIOVASCULAR: S1 and S2 present. No murmurs, rubs, or gallops. PULMONARY: Chest is clear to auscultation, no wheezing , no crackles. ABDOMEN: Soft, nontender, nondistended, normoactive bowel sounds. No palpable organomegaly. MUSCULOSKELETAL: No joint swelling or deformity. EXTREMITIES: No cyanosis, clubbing, or pedal edema. NEUROLOGICAL: Gross neurological examination did not reveal any focal deficits. SKIN: No rashes. no petechiae. - Labs CBC & Chem 7: 10/14/23 05:23 10/14/23 05:23 Labs: Abnormal Lab Results - Last 24 Hours (Table) 10/14/23 10/14/23 Range/Units 05:23 05:23 WBC 39.9 H (3.8-10.6) k/uL RBC 3.08 L (4.30-5.90) m/uL Hgb 6.9 L* (13.0-17.5) gm/dL Hct 24.8 L (39.0-53.0) % MCH 22.4 L (25.0-35.0) pg MCHC 27.8 L (31.0-37.0) g/dL RDW 18.9 H (11.5-15.5) % Neutrophils # (Manual) 38.70 H (1.3-7.7) k/uL Lymphocytes # (Manual) 0.40 L (1.0-4.8) k/uL Sodium 128 L (137-145) mmol/L BUN 24 H (9-20) mg/dL Calcium 7.9 L (8.4-10.2) mg/dL Alkaline Phosphatase 491 H (38-126) U/L Total Protein 4.6 L (6.3-8.2) g/dL Albumin 2.2 L (3.5-5.0) g/dL Assessment and Plan Assessment: Severe depression with suicidal attempt 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 Plan: Continue with pain management Morphine as needed. Toradol prn for breakthrough pain Colace as needed Nutrition consult Antidepressants and other management per psychiatry consult Psychiatric consult is requested Oncology consult Suicidal id precaution. Continue sitter at bedside Hospice consult requested from emergency room. Patient and family request DVT and GI prophylaxis Prognosis guarded
--- NOTE | 2023-10-20 08:26 | P.DS ---
Providers Date of admission: 10/13/23 13:43 Attending physician: Hamilton Ahmadi MD Consults: 10/13/23 11:08 Consult Physician Stat Consulting Provider: Moriah Farley Consult Reason/Comments: pt was suicidal but is now going to go hospice Do you want consulting provider notified?: Yes 10/13/23 13:42 Consult Physician Urgent Consulting Provider: Moriah Farley Consult Reason/Comments: Suicidal ideations Do you want consulting provider notified?: Yes 10/14/23 11:25 Consult Physician Stat Consulting Provider: Carlos Hankins Consult Reason/Comments: pt requesting more information related to pt DX Do you want consulting provider notified?: Already Contacted Primary care physician: Carlos Hankins MD Hospital Course: Final Diagnosis Severe depression with suicidal attempt 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 Discharge Disposition Stable for discharge to [facility], hospice has been initiated secondary to his metastatic cancer. Patient was cleared by psychiatry. Hospital Course Patient is a pleasant 63 years old male with past medical history of multiple medical problems, he has history of metastatic urinary bladder disease to various organs including the lung, mediastinum, liver and bones. Was admitted today from emergency room for suicidal attempt and hospice care. Patient was seen and examined in the emergency room, he was Evaluated and oriented, vitamin D is very good no distress. When I asked patient for the reason for coming to the hospital he replied "I could not take it the pain cannot walk cannot stand up, currently off go anywhere else" Patient himself is awake oriented to time place person he does not remember the hospital, the exact date and the names of the president. He has insight into his illness. His main physical problem is pain in his groin area and he rated as severe. He said he was taking [place] 10 but did not improve him. Patient also complaining from constipation He has some chest pain with coughing with little dyspnea. But no headache dizziness weakness specific to 11 or numbness. Was admitted to the hospital with a consult placed to hospice services as well as psychiatry. He had a one-to-one health and safety specialist and was monitored on suicidal precautions. He was evaluated twice by psychiatry a second evaluation felt that he had improved and does not need any inpatient psychiatric treatment. Secondary to his chronic pain from his metastatic cancer patient was requesting an hospice consultation and will be discharged to [facility]. Please see medication reconciliation for a list of current medications. Thank you for allowing us to participate in the care of this patient. The impression and plan of care has been dictated by Cat Sanchez, Nurse Practitioner as directed. Dr. Arun MD I have performed a history and physical examination and medical decision making of this patient, discussed the same with the dictator, and agree with the dictators assessment and plan as written, documented as a scribe. Based on total visit time, I have performed more than 50% of this visit. Plan - Discharge Summary New Discharge Prescriptions: New Mirtazapine [Remeron] 15 mg PO HS #30 tab guaiFENesin [Mucinex] 600 mg PO Q12H tab Continue Ondansetron [Zofran] 4 mg PO Q4H PRN PRN Reason: Nausea Budesonide/Formoterol Fumarate [Symbicort 160-4.5 Mcg Inhaler] 2 puff INHALATION RT-BID PRN PRN Reason: Shortness Of Breath Apixaban [Eliquis] 2.5 mg PO BID Amiodarone [Cordarone] 200 mg PO DAILY Magnesium Hydroxide [Milk of Magnesia] 2,400 mg PO BID PRN ml PRN Reason: Constipation polyethylene glycoL 3350 [Miralax] 17 gm PO DAILY #30 packet Sennosides-Docusate Sodium [Senokot-S] 2 tab PO BID Ipratropium-Albuterol Nebulize [Duoneb 0.5 mg-3 mg/3 ml Soln] 3 ml INHALATION RT-QID #100 each Multivitamins, Thera [Multivitamin (formulary)] 1 tab PO DAILY@1200 Nystatin 100,000 Unit/ml Susp [Mycostatin Oral Susp] 500,000 unit PO DIRECTED HYDROcodone/APAP 10-325MG [[place] 10-325] 1 tab PO Q4HR PRN PRN Reason: Pain Ipratropium-Albuterol Nebulize [Duoneb 0.5 mg-3 mg/3 ml Soln] 3 ml INHALATION RT-QID PRN PRN Reason: Shortness Of Breath Albuterol Sulfate [Albuterol Sulfate Hfa] 2 puff INHALATION RT-Q4H PRN PRN Reason: Shortness Of Breath Sucralfate [Carafate] 1 gm PO AC-BID #60 tab Folic Acid 1 mg PO DAILY@1200 #30 tab Metoprolol Tartrate [Lopressor] 75 mg PO TID 30 Days #180 tab Thiamine [Vitamin B-1] 100 mg PO DAILY@1200 #30 tab Discontinued cefUROXime axetiL [Ceftin] 500 mg PO BID 5 Days #10 tab Discharge Medication List Ondansetron [Zofran] 4 mg PO Q4H PRN 05/25/23 [History] HYDROcodone/APAP 10-325MG [[place] 10-325] 1 tab PO Q4HR PRN 06/06/23 [History] Apixaban [Eliquis] 2.5 mg PO BID 07/01/23 [History] Budesonide/Formoterol Fumarate [Symbicort 160-4.5 Mcg Inhaler] 2 puff INHALATION RT-BID PRN 07/01/23 [History] Ipratropium-Albuterol Nebulize [Duoneb 0.5 mg-3 mg/3 ml Soln] 3 ml INHALATION RT-QID PRN 07/01/23 [History] Amiodarone [Cordarone] 200 mg PO DAILY 07/19/23 [History] Albuterol Sulfate [Albuterol Sulfate Hfa] 2 puff INHALATION RT-Q4H PRN 09/17/23 [History] Magnesium Hydroxide [Milk of Magnesia] 2,400 mg PO BID PRN ml 09/24/23 [Rx] Sucralfate [Carafate] 1 gm PO AC-BID #60 tab 09/24/23 [Rx] polyethylene glycoL 3350 [Miralax] 17 gm PO DAILY #30 packet 09/24/23 [Rx] Sennosides-Docusate Sodium [Senokot-S] 2 tab PO BID 10/03/23 [History] Folic Acid 1 mg PO DAILY@1200 #30 tab 10/09/23 [Rx] Ipratropium-Albuterol Nebulize [Duoneb 0.5 mg-3 mg/3 ml Soln] 3 ml INHALATION RT-QID #100 each 10/09/23 [Rx] Metoprolol Tartrate [Lopressor] 75 mg PO TID 30 Days #180 tab 10/09/23 [Rx] Thiamine [Vitamin B-1] 100 mg PO DAILY@1200 #30 tab 10/09/23 [Rx] Multivitamins, Thera [Multivitamin (formulary)] 1 tab PO DAILY@1200 10/13/23 [History] Nystatin 100,000 Unit/ml Susp [Mycostatin Oral Susp] 500,000 unit PO DIRECTED 10/13/23 [History] Mirtazapine [Remeron] 15 mg PO HS #30 tab 10/16/23 [Rx] guaiFENesin [Mucinex] 600 mg PO Q12H tab 10/16/23 [Rx] Follow up Appointment(s)/Referral(s): Carlos Hankins MD [Primary Care Provider] - 1-2 days Activity/Diet/Wound Care/Special Instructions: Cleared for discharge to [facility]. Discharge Disposition: [facility]CH TO HOSPICE MED FACILTY
== END 2023-10-16 11:53 | disposition hospice, inpatient (51) | DRG 861 ==
LOC: EC 09:21 → 5NMEDONC 13:43
PROVIDERS: ADMIT Internal Medicine; ATTEND Internal Medicine
DX: G89.3 Neoplasm related pain (acute) (chronic) (principal); C67.9 Malignant neoplasm of bladder, unspecified; C78.00 Secondary malignant neoplasm of unspecified lung; C79.51 Secondary malignant neoplasm of bone; C78.7 Secondary malignant neoplasm of liver and intrahepatic bile duct; R64 Cachexia; C78.1 Secondary malignant neoplasm of mediastinum; D64.9 Anemia, unspecified; E43 Unspecified severe protein-calorie malnutrition; Z68.1 Body mass index [BMI] 19.9 or less, adult; Z51.5 Encounter for palliative care; Z66 Do not resuscitate; Z74.09 Other reduced mobility; Z74.3 Need for continuous supervision; F32.9 Major depressive disorder, single episode, unspecified; I48.91 Unspecified atrial fibrillation; J44.9 Chronic obstructive pulmonary disease, unspecified; K59.00 Constipation, unspecified; R45.851 Suicidal ideations; Z93.6 Other artificial openings of urinary tract status; Z79.01 Long term (current) use of anticoagulants; Z79.51 Long term (current) use of inhaled steroids; Z79.899 Other long term (current) drug therapy
CPT/HCPCS: 80053; 84484; 85025; 93005; 96374; 96375; 99285